=== PATIENT | female | born 1945 | race Caucasian/White ===

== ENCOUNTER 2016-10-03 11:56 | Inpatient (IN) ==
[2016-10-03 12:43] LABS: Basophils % 0.7 %; Eosinophils # 0.2 K/mcL (0.0-0.6); Eosinophils % 3.5 %; Hematocrit 40.2 % (35.3-44.9); Hemoglobin 12.4 g/dL (11.5-15.4); Immature Granulocytes % 0.2 % (0-4); Lymphocytes # 1.6 K/mcL (0.6-4.6); Lymphocytes % 36.8 %; Mean Corpuscular HGB Conc 30.8 g/dL (31.6-35.5); Mean Corpuscular Hemoglobin 27.1 pg (28.0-33.3); Mean Platelet Volume 9.8 fL (9.4-12.4); Monocytes # 0.5 K/mcL (0.0-1.3); Monocytes % 11.2 %; Platelet Count 179 K/mcL (140-400); Red Blood Count 4.57 M/mcL (3.82-4.97); Red Cell Distribution Width 15.8 % (11.5-14.5); Segmented Neutrophils % 47.6 %
[2016-10-03 12:49] LABS: INR 1.3; Prothrombin Time 13.7 Seconds (9.4-12.1)
[2016-10-03 13:01] LABS: Alanine Aminotransferase 19 Units/L (0-55); Albumin 2.9 g/dL (3.5-5.0); Albumin/Globulin Ratio 0.8 (1.1-2.2); Alkaline Phosphatase 102 Units/L (38-126); Aspartate Amino Transferase 28 Units/L (5-34); BUN/Creatinine Ratio 14 (6-26); Bilirubin,Total 1.3 mg/dL (0.2-1.2); Blood Urea Nitrogen 14 mg/dL (7-20); Calcium 9.7 mg/dL (8.6-10.8); Carbon Dioxide 27 mEq/L (19-29); Chloride 103 mEq/L (98-109); Globulin 3.7 g/dL (2.4-3.5); Glucose 98 mg/dL (70-99); Osmolality,Calculated 286 (280-300); Potassium 4.7 mEq/L (3.5-4.5); Sodium 138 mEq/L (136-145); Total Protein 6.6 g/dL (6.0-8.3); eGFR For African Americans > 60 (> 60); eGFR For Non-African Americans 54 (> 60)
--- NOTE | 2016-10-03 14:21 | Emergency Department Note ---
Disposition Clinical Impression: Congestive heart failure, New onset a-fib Disposition: Admitted As Inpatient Condition: Good SOB HPI - General Chief Complaint: ED Shortness of Breath/Dyspnea Stated Complaint: LISA Time Seen by Provider: 10/03/16 12:11 Source: patient, family Limitations: no limitations Nursing Notes Reviewed: Yes Vital Signs Reviewed: Yes - History of Present Illness Patient presents with complaint of worsening shortness of breath. Patient stated his symptoms started over a week ago she had a CT scan done that showed a moderate right side effusion. Patient states the shortness of breath got worse and her tolerance has worsened. Patient denies fevers or chills denies shortness of breath. Patient denies chest pain denies change in appetite. Patient does feel agitation associated. Patient denies prior history of similar symptoms. Family notes that the patient has been short of breath when walking up stairs. - Related Data Home Medications Medication Instructions Recorded Confirmed Albuterol Neb [Proventil Neb] 2.5 mg IH Q4HR 05/21/15 09/25/16 Aspirin [Adult Low Dose Aspirin EC] 81 mg PO DAILY 05/21/15 09/25/16 Calcium Carbonate [Tums] 500 mg PO DAILY 05/21/15 09/25/16 Docusate [Colace] 100 mg PO BID 05/21/15 09/25/16 Furosemide [Lasix] 40 mg PO DAILY PRN 05/21/15 09/25/16 Previous Rx's Medication Instructions Recorded GuaiFENesin ER [Mucinex] 600 mg PO BID #20 tbbp.12hr 08/21/15 Fluconazole [Diflucan] 200 mg PO DAILY #3 tab 08/29/15 Fluticasone Propionate Nasal 1 spray NS BID #1 bottle 12/18/15 [Flonase] Ciprofloxacin [Cipro] 1 tab PO BID #14 tablet 03/18/16 PredniSONE [Deltasone] 1 tab PO BID #10 tablet 03/18/16 Lovastatin [Altoprev] 20 mg PO DAILY #90 tab.er.24h 04/08/16 Metoprolol XL (24 HR) Succ [Toprol 25 mg PO BID #180 tab.er.24h 04/15/16 XL] Ranitidine HCl [Zantac] 1 tab PO BID #180 tablet 05/08/16 Acetaminophen/Butalbital/Caffe 1 each PO Q8H PRN #30 tablet 05/21/16 [Fioricet] Amoxicillin/Clavulanate [Augmentin] 1 tab PO BID #14 tablet 06/10/16 Diazepam [Valium] 1 tab PO TID PRN #30 tablet 06/10/16 Fluticasone Propionate [Flovent 1 puff IH BID #1 aer.w.adap 06/10/16 Hfa] Erlotinib HCl [Tarceva] 100 mg PO DAILY 30 Days 06/30/16 Hydrocodone/Acetaminophen [[place] 1 tab PO TID PRN #90 tablet 07/23/16 5-325 Tablet] Loratadine [Claritin] 10 mg PO DAILY #90 tablet 08/05/16 Omeprazole [PriLOSEC] 20 mg PO DAILY #90 capsule 08/05/16 Fluconazole [Diflucan] 200 mg PO DAILY #3 tab 09/25/16 Allergies Allergy/AdvReac Type Severity Reaction Status Date / Time No Known Allergies Allergy Verified 05/15/15 08:52 All systems ED: reviewed and negative except as stated. Past Medical History - Past Medical History Source: patient Medical history: Reports: cancer, COPD, GERD, myocardial infarction Surgical history: Reports: cancer surgery, cholecystectomy Psychiatric history: Reports: no psych history - Social History Smoking Status: Former smoker Smokeless Tobacco Status: No Alcohol use: Reports: none Drug use: Reports: none Physical Exam - General Limitations: no limitations General appearance: alert - Head Head exam: atraumatic, normocephalic, normal inspection - Eye Eye exam: Present: normal appearance, PERRL, EOMI - ENT ENT exam: normal exam, normal oropharynx, mucous membranes moist - Neck Neck exam: Present: normal inspection, full ROM, trachea midline - Chest Chest inspection: Present: normal inspection, symmetric chest wall rise - Respiratory Respiratory exam: Present: other (No air movement noted on the right. Rhonchi noted on the left) - Cardiovascular Cardiovascular exam: Present: tachycardia, irregular rhythm - Abdominal Exam Abdominal exam: Present: soft, Non-Tender. Absent: tenderness, distention, guarding, rebound, rigidity - Extremities Exam Extremities exam: Present: normal inspection, full ROM. Absent: tenderness, pedal edema - Back Exam Back exam: Present: normal inspection, full ROM. Absent: tenderness - Neurological Exam Neurological exam: Present: alert, oriented X3 - Psychiatric Psychiatric exam: Present: normal affect, normal mood - Skin Skin exam: Present: warm, dry, intact, normal color Course Vital Signs Temperature 97.8 F 10/03/16 11:57 Pulse Rate 163 10/03/16 11:57 Respiratory Rate 24 10/03/16 11:57 Blood Pressure 119/80 10/03/16 11:57 O2 Sat by Pulse Oximetry 88 L 10/03/16 11:57 Temperature 97.8 F 10/03/16 11:57 Pulse Rate 100 10/03/16 14:01 Respiratory Rate 18 10/03/16 14:01 Blood Pressure 112/88 10/03/16 14:01 O2 Sat by Pulse Oximetry 99 10/03/16 14:01 Oxygen Delivery Oxygen Delivery Nasal Cannula Shortness of Breath/Dyspnea - Differential Diagnosis Likely: acute exacerbation of chronic obstructive airways disease, congestive heart failure, pneumonia, pulmonary embolism, pneumothorax - Lab Data Lab results reviewed: Yes I reviewed the patient's lab results. Result diagrams: 10/03/16 12:35 10/03/16 12:35 Lab Results 10/03/16 10/03/16 10/03/16 Range/Units 12:35 12:35 12:35 WBC 4.3 (4.3-11.1) K/mcL RBC 4.57 (3.82-4.97) M/mcL Hgb 12.4 (11.5-15.4) g/dL Hct 40.2 (35.3-44.9) % MCV 88.0 (83.0-100.0) fL MCH 27.1 L (28.0-33.3) pg MCHC 30.8 L (31.6-35.5) g/dL RDW 15.8 H (11.5-14.5) % Plt Count 179 (140-400) K/mcL MPV 9.8 (9.4-12.4) fL Immature Gran % 0.2 (0-4) % Seg Neutrophils % 47.6 % Lymphocytes % 36.8 % Monocytes % 11.2 % Eosinophils % 3.5 % Basophils % 0.7 % Neutrophils # 2.0 (1.6-8.9) K/mcL Lymphocytes # 1.6 (0.6-4.6) K/mcL Monocytes # 0.5 (0.0-1.3) K/mcL Eosinophils # 0.2 (0.0-0.6) K/mcL Basophils # 0.0 (0.0-0.2) K/mcL PT 13.7 H (9.4-12.1) Seconds INR 1.3 Sodium 138 (136-145) mEq/L Potassium 4.7 H (3.5-4.5) mEq/L Chloride 103 (98-109) mEq/L Carbon Dioxide 27 (19-29) mEq/L BUN 14 (7-20) mg/dL Creatinine 1.02 (0.57-1.11) mg/dL Est GFR ( Amer) > 60 (> 60) Est GFR (Non-Af Amer) 54 L (> 60) BUN/Creatinine Ratio 14 (6-26) Glucose 98 (70-99) mg/dL Calculated Osmolality 286 (280-300) Lactic Acid (0.5-2.2) mmol/L Calcium 9.7 (8.6-10.8) mg/dL Total Bilirubin 1.3 H (0.2-1.2) mg/dL AST 28 (5-34) Units/L ALT 19 (0-55) Units/L Alkaline Phosphatase 102 (38-126) Units/L Troponin I (0-0.03) ng/mL B-Natriuretic Peptide (0-100) pg/mL Serum Total Protein 6.6 (6.0-8.3) g/dL Albumin 2.9 L (3.5-5.0) g/dL Globulin 3.7 H (2.4-3.5) g/dL Albumin/Globulin Ratio 0.8 L (1.1-2.2) 10/03/16 10/03/16 10/03/16 Range/Units 12:35 12:35 12:35 WBC (4.3-11.1) K/mcL RBC (3.82-4.97) M/mcL Hgb (11.5-15.4) g/dL Hct (35.3-44.9) % MCV (83.0-100.0) fL MCH (28.0-33.3) pg MCHC (31.6-35.5) g/dL RDW (11.5-14.5) % Plt Count (140-400) K/mcL MPV (9.4-12.4) fL Immature Gran % (0-4) % Seg Neutrophils % % Lymphocytes % % Monocytes % % Eosinophils % % Basophils % % Neutrophils # (1.6-8.9) K/mcL Lymphocytes # (0.6-4.6) K/mcL Monocytes # (0.0-1.3) K/mcL Eosinophils # (0.0-0.6) K/mcL Basophils # (0.0-0.2) K/mcL PT (9.4-12.1) Seconds INR Sodium (136-145) mEq/L Potassium (3.5-4.5) mEq/L Chloride (98-109) mEq/L Carbon Dioxide (19-29) mEq/L BUN (7-20) mg/dL Creatinine (0.57-1.11) mg/dL Est GFR ( Amer) (> 60) Est GFR (Non-Af Amer) (> 60) BUN/Creatinine Ratio (6-26) Glucose (70-99) mg/dL Calculated Osmolality (280-300) Lactic Acid 2.6 H (0.5-2.2) mmol/L Calcium (8.6-10.8) mg/dL Total Bilirubin (0.2-1.2) mg/dL AST (5-34) Units/L ALT (0-55) Units/L Alkaline Phosphatase (38-126) Units/L Troponin I 0.12 H* (0-0.03) ng/mL B-Natriuretic Peptide 2516 H (0-100) pg/mL Serum Total Protein (6.0-8.3) g/dL Albumin (3.5-5.0) g/dL Globulin (2.4-3.5) g/dL Albumin/Globulin Ratio (1.1-2.2) - Radiology Data Radiology results reviewed: Yes I reviewed the patient's radiology results. Chest CTA 10/03/16 12:17 IMPRESSION: Negative study for pulmonary embolism. Stable enlargement of main pulmonary arteries which may be on the basis of pulmonary arterial hypertension. Redemonstration of prior partial right pneumonectomy. Complete collapse of residual right lung redemonstrated. Other underlying pathology not excluded. Stable rightward mediastinal shift. Stable cardiomegaly and small pericardial effusion. Stable moderately sized left pleural effusion with associated mild dependent/compressive atelectasis to left lower lobe. Stable right axillary lymphadenopathy from recent exam, worsened from prior more remote exam 03/12/2016. With the patient's clinical history, metastatic disease is of concern. Mild diffuse subcutaneous edema about the chest, right more than left, nonspecific but possibly reflecting anasarca or lymphedema. D/ / 10/03/2016 14:20:03 Luis F Wheeler MD / nevaeh Interpreting Provider: Luis F Wheeler MD - EKG Data EKG attestation: Yes I reviewed and interpreted this EKG. Rate: Reports: tachycardia Rhythm: Reports: A.Fib Critical Care Time Total Critical Care Time: 45 Attestation: Critical care performed: Time is exclusive of separately billable procedures. Time includes: direct patient care, patient reassessment, coordination of patient care, interpretation of data (laboratory data, radiology data, and respiratory data), review of patient's medical records, medical consultation and documentation of patient care. Procedures included in critical care time: Procedures excluded from critical care time:
--- NOTE | 2016-10-03 18:15 | Internal Med History&Physical ---
Date of Encounter: 10/03/16 Time of Encounter: 18:15 Assessment and Plan (1) Atrial fibrillation with RVR Current visit: Yes Status: Acute I will continue with Cardizem drip. Titrate to maintain heart rate between 80 and 110. Currently she has had 7 mg per hour. We will obtain echocardiogram. Consult cardiology. Transitioned to oral diltiazem. Start metoprolol given her history of CAD. We will start stroke prophylaxis with full dose Lovenox and I will have conversation about anticoagulation choice for her in the morning. She has a transthoracic score of 5 when a yearly stroke risk of about 7% and therefore she would benefit from anticoagulation. (2) Acute on chronic heart failure Current visit: Yes Status: Acute IV Lasix 20 mg twice a day. Daily weights. Strict I&O's. Check echocardiogram. Qualifiers: Heart failure type: diastolic Qualified Code(s): I50.33 - Acute on chronic diastolic (congestive) heart failure (3) Elevated troponin Current visit: Yes Status: Acute Controlled throughout ACS. Start aspirin. Trend troponin. Continue with metoprolol. (4) Coronary artery disease Current visit: Yes Status: Acute Aspirin and beta melina and statin. Nitroglycerin for chest pain. Qualifiers: Coronary Disease-Associated Artery/Lesion type: [place] artery [place] vs. transplanted heart: [place] heart Associated angina: without angina Qualified Code(s): I25.10 - Atherosclerotic heart disease of [place] coronary artery without angina pectoris (5) Non-small cell lung cancer Current visit: No Status: Chronic Continue with Tarceva. Patient has a pleural effusion on the left which could be reflecting her CHF. Could represent malignant effusion. She has a small increase in her lymph nodes and therefore I will consult oncology. 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 If the patient has a high-grade stricture she will need to have endoscopy and dilation otherwise she will not be able to receive treatment with oral medications for her atrial fibrillation. Internal Medicine - H&P: HPI Chief complaint: Shortness of breath Admitted From: Emergency Dept Plans for Post Hospital Care: Home History of present illness: Ms. Wong is a 71 year old female with past medical history significant for CAD status post stent, COPD and lung cancer currently being treated with oral chemotherapy who presented to the hospital for shortness of breath. She reports that for the last 2 weeks she had been progressively more short of breath, dyspnea morning she experienced severe shortness of breath at rest after she woke up. She used a nebulized bronchodilator with no relief. She denies any associated chest pain, reported moderate upper back pain and dry cough. Denies nausea vomiting diarrhea. Denies recent URI symptoms. Denies history of bleeding bruising and blood clots. She reports some dysphagia when she takes her pills and states that some of her pills get stuck. She states that she has had her esophagus stretched several times before. A 10 point review of systems was negative except as above. Past medical history: Essential hypertension, GERD, Coronary artery disease status post TX and stent placement, COPD, acute lymphoblastic leukemia treated. Asparaginase and in remission, non-small cell right lower lobe lung cancer bone metastases and metastases to the brain status post right lower lobectomy, chemotherapy and radiation. Past surgical history: Right lower lobectomy and chronic carpal tunnel surgery Social history she is a former smoker, quit more than 20 years ago, denies alcohol or drug use. She lives at home independently and she still drives. She uses oxygen at nighttime only. Family history: Pertinent for both parents suffered with lung cancer and sister suffered with lung cancer, hilar history of smoking. Past Med Surg Social Fam HX - Past Medical History Medical history: cancer, COPD, GERD, myocardial infarction Psychiatric history: anxiety, depression - Past Surgical History Surgical History: cancer surgery, cholecystectomy - Social History Smoking Status: Former smoker Smokeless Tobacco Status: No Alcohol use: none Drug use: none Internal Medicine - H&P: Meds Albuterol Neb [Proventil Neb] 2.5 mg IH Q4HR 05/21/15 [History] Aspirin [Adult Low Dose Aspirin EC] 81 mg PO DAILY 05/21/15 [History] Calcium Carbonate [Tums] 500 mg PO DAILY 05/21/15 [History] Docusate [Colace] 100 mg PO BID 05/21/15 [History] Furosemide [Lasix] 40 mg PO DAILY PRN 05/21/15 [History] Lovastatin [Altoprev] 20 mg PO DAILY #90 tab.er.24h 04/08/16 [Rx] Metoprolol XL (24 HR) Succ [Toprol XL] 25 mg PO BID #180 tab.er.24h 04/15/16 [Rx ] Diazepam [Valium] 1 tab PO TID PRN #30 tablet 06/10/16 [Rx] Erlotinib HCl [Tarceva] 100 mg PO DAILY 30 Days 06/30/16 [Rx] Hydrocodone/Acetaminophen [[place] 5-325 Tablet] 1 tab PO TID PRN #90 tablet 07/23 [Rx] Omeprazole [PriLOSEC] 20 mg PO DAILY #90 capsule 08/05/16 [Rx] Fluticasone Propionate Nasal [Flonase] 50 mcg NS BID 10/03/16 [History] Gabapentin [Neurontin] 300 mg PO QAM 10/03/16 [History] Gabapentin [Neurontin] 600 mg PO HS 10/03/16 [History] Ranitidine HCl [Zantac] 150 mg PO BID 10/03/16 [History] Sertraline [Zoloft] 25 mg PO DAILY 10/03/16 [History] Tiotropium [Spiriva] 18 mcg IH DAILY 10/03/16 [History] Allergies No Known Allergies Allergy (Verified 05/15/15 08:52) All Systems PM: A 10-system review of systems was performed and is negative for pertinent findings except as documented above in the HPI. - Constitutional Vitals: Temp Pulse Resp BP Pulse Ox 98.1 F 95 16 114/87 100 10/03/16 16:14 10/03/16 16:14 10/03/16 16:14 10/03/16 16:14 10/03/16 16:34 General appearance: Present: A&O X 3 - Eye Eye exam: Present: PERRL, conjuntiva pink, sclera anicteric Pupils: Present: PERRL - Neck Neck exam general surgery: Present: supple, trachea midline. Absent: lymphadenopathy - Respiratory Respiratory exam: Present: CTAB (Diminished breath sounds at both bases). Absent: accessory muscle use, rales, rhonchi, wheezes - Cardiovascular Cardiovascular exam: Present: irregular rhythm, +S1, +S2, tachycardia. Absent: diastolic murmur, gallop, rubs, systolic murmur - GI/Abdominal GI/Abdominal exam: Present: normal bowel sounds, soft, no peritoneal signs. Absent: distended, tenderness - Extremities Exam Extremities exam: Present: warm, radial pulses palpable and symetrical. Absent : calf tenderness, cyanotic, pedal edema - Neurological Exam Neurological exam: Present: CN II-XII intact, oriented X3, no focal deficits. Absent: pronater drift, facial droop, speech deficit - Skin Skin exam: Present: dry, intact Internal Med - H&P Results - Labs CBC & Chem 7: 10/03/16 12:35 10/03/16 12:35 - EKG Data -: EKG Interpreted by Myself (A. fib RVR 1 86 bpm left axis deviation, no ST changes.)
[2016-10-03] MEDS ORDERED: Naloxone 0.4 MG/ML INJ IVP PRN (18:35)
[2016-10-03] MEDS ORDERED: Acetaminophen 325 MG TABLET PO PRN (18:35)
[2016-10-03] MEDS: *HR* Enoxaparin 60 MG/0.6 ML SYRINGE SQ SCH (20:29)
[2016-10-03] MEDS: Furosemide 20 MG/2 ML VIAL IVP SCH (20:30)
[2016-10-04 01:09] LABS: Basophils % 0.8 %; Eosinophils # 0.2 K/mcL (0.0-0.6); Eosinophils % 4.4 %; Hematocrit 41.1 % (35.3-44.9); Hemoglobin 12.7 g/dL (11.5-15.4); Immature Granulocytes % 0.2 % (0-4); Lymphocytes # 1.5 K/mcL (0.6-4.6); Mean Corpuscular HGB Conc 30.9 g/dL (31.6-35.5); Mean Corpuscular Hemoglobin 27.4 pg (28.0-33.3); Mean Corpuscular Volume 88.6 fL (83.0-100.0); Mean Platelet Volume 10.3 fL (9.4-12.4); Monocytes # 0.6 K/mcL (0.0-1.3); Monocytes % 12.3 %; Neutrophils # 2.5 K/mcL (1.6-8.9); Platelet Count 178 K/mcL (140-400); Red Blood Count 4.64 M/mcL (3.82-4.97); Red Cell Distribution Width 15.8 % (11.5-14.5); Segmented Neutrophils % 51.3 %
[2016-10-04 01:26] LABS: Calcium 9.2 mg/dL (8.6-10.8); Chol/HDL Ratio 2.4 (0-4.9); Magnesium 1.5 mg/dL (1.6-2.6)
[2016-10-04 01:27] LABS: Potassium 3.5 mEq/L (3.5-4.5)
[2016-10-04 01:45] LABS: Thyroid Stimulating Hormone 1.978 mcIU/mL (0.350-4.840)
[2016-10-04] MEDS: TARCEVA PO SCH ×2 (04:41→08:56)
[2016-10-04] MEDS: *HR* Enoxaparin 60 MG/0.6 ML SYRINGE SQ SCH (06:13)
--- NOTE | 2016-10-04 08:50 | Oncology Inp Consult Note ---
Date of Encounter: 10/04/16 Time of Encounter: 07:00 Assessment and Plan (1) Non-small cell lung cancer Status: Chronic Assessment and plan: Recurrent non-small cell lung cancer with a history of brain metastatic disease currently on Tarceva since 2009 with stable disease patient hospitalized with worsening shortness of breath possibly secondary to cardiac event. Rapid ventricular rate currently on anticoagulation and rate control. Troponon trending down. Lung cancer s/p right lung resection with complete collapse of the right lung, this has not changed from before. Left lung fluid accumulation noted plan thoracentesis diagnostic/for symptom relief once she is stable from cardiac standpoint. She has history of COPD he continues with the oxygen at home. Continuing her home medication Tarceva which she is allowed to take. Plan of care discussed with patient in detail who stated understanding of the above. Qualifiers: Laterality: right Qualified Code(s): C34.91 - Malignant neoplasm of unspecified part of right bronchus or lung - Data of Consult Requesting Physician: Anuj Castorena MD Primary Care Provider: Elton Gates MD - Consult Narrative Reason for consult: lung cancer, SOB History of present illness: Ms. Wong is a 71 year old female with a history of recurrent lung cancer status post chemoradiation in the past by chemotherapy upon recurrence currently maintained on Tarceva since January 2010 100 mg daily, which patient is currently taking. She also had an isolated brain metastatic disease for which she had local treatments. Patient had bronchitis shortness of breath at the episodes periodically was treated with antibiotics and steroid course in the past. Patient reports having had sinus/congestive symptoms with cough or expectoration for the last few months. She had worsening shortness of breath for the past 2 weeks prior to hospitalization denies any fever complaints of fatigue denies any abdominal pain nausea vomiting. Stricture of esophagus- planned endoscopy. She is unable to take deep breath because of some left-sided chest discomfort. A CTA heart show any pulmonary embolus, she is status post right LL resection with opacification, left lower lung fluid accumulation. She uses home oxygen. Night any lower extremity swelling. Heart rate, rhythm on admission A. fib with rapid ventricular rate. On anticoagulation. A 14 point review of systems is otherwise negative. Past Med Surg Social Fam HX - Past Medical History Medical history: cancer, COPD, GERD, myocardial infarction Psychiatric history: anxiety, depression - Past Surgical History Surgical History: cancer surgery, cholecystectomy - Social History Smoking Status: Former smoker Smokeless Tobacco Status: No Alcohol use: none Drug use: none Medications and Allergies Albuterol Neb [Proventil Neb] 2.5 mg IH Q4HR 05/21/15 [History] Aspirin [Adult Low Dose Aspirin EC] 81 mg PO DAILY 05/21/15 [History] Calcium Carbonate [Tums] 500 mg PO DAILY 05/21/15 [History] Docusate [Colace] 100 mg PO BID 05/21/15 [History] Furosemide [Lasix] 40 mg PO DAILY PRN 05/21/15 [History] Lovastatin [Altoprev] 20 mg PO DAILY #90 tab.er.24h 04/08/16 [Rx] Metoprolol XL (24 HR) Succ [Toprol XL] 25 mg PO BID #180 tab.er.24h 04/15/16 [Rx ] Diazepam [Valium] 1 tab PO TID PRN #30 tablet 06/10/16 [Rx] Erlotinib HCl [Tarceva] 100 mg PO DAILY 30 Days 06/30/16 [Rx] Hydrocodone/Acetaminophen [[place] 5-325 Tablet] 1 tab PO TID PRN #90 tablet 07/23 [Rx] Omeprazole [PriLOSEC] 20 mg PO DAILY #90 capsule 08/05/16 [Rx] Fluticasone Propionate Nasal [Flonase] 50 mcg NS BID 10/03/16 [History] Gabapentin [Neurontin] 300 mg PO QAM 10/03/16 [History] Gabapentin [Neurontin] 600 mg PO HS 10/03/16 [History] Ranitidine HCl [Zantac] 150 mg PO BID 10/03/16 [History] Sertraline [Zoloft] 25 mg PO DAILY 10/03/16 [History] Tiotropium [Spiriva] 18 mcg IH DAILY 10/03/16 [History] Allergies No Known Allergies Allergy (Verified 05/15/15 08:52) Oncology - Exam - Constitutional Vitals: Temp Pulse Resp BP Pulse Ox 98.9 F 119 21 107/91 97 10/04/16 06:03 10/04/16 06:03 10/04/16 06:03 10/04/16 06:03 10/04/16 06:03 Oncology - Results - Labs Labs: Short CBC 10/04/16 Range/Units 00:52 WBC 4.8 (4.3-11.1) K/mcL Hgb 12.7 (11.5-15.4) g/dL Hct 41.1 (35.3-44.9) % Plt Count 178 (140-400) K/mcL Neutrophils # 2.5 (1.6-8.9) K/mcL BMP 10/04/16 00:52 Sodium 137 Potassium 3.5 D Chloride 99 Carbon Dioxide 27 BUN 14 Creatinine 1.13 H Glucose 101 H Calcium 9.2 Cardiac Enzymes 10/03/16 10/04/16 10/04/16 Range/Units 20:00 00:52 07:01 Troponin I 0.16 H* 0.16 H* 0.09 H* (0-0.03) ng/mL Consult Discharge Plan - Plan Referrals: Elton Gates MD [Primary Care Provider] -
[2016-10-04] MEDS: Aspirin 81 MG TAB.CHEW PO SCH (09:10)
[2016-10-04] MEDS: Furosemide 20 MG/2 ML VIAL IVP SCH ×3 (09:10→17:29)
--- NOTE | 2016-10-04 09:53 | Cardiology Consult Note ---
Date of Encounter: 10/04/16 Time of Encounter: 09:49 Assessment and Plan (1) Atrial fibrillation with RVR Current Visit: Yes Status: Acute Paroxysmal. Initially diagnosed in 2012 per records. Pt reports she was never started on anticoagulation. HR currently 90s-120s at bedside on Cardizem gtt at 7mg/hr. Will resume home BB Toprol XL 25mg BID and adjust cardizem gtt as BP will tolerate to keep HR <100. Check echo once HR controlled. K 3.5, Mag 1.5. Check TSH. CHADSVASC score 4 (Age, HTN, Female, CAD). Also hypercoaguable state given her malignancy. Recommend anticoagulation. Discussed Coumadin vs. NOACs. Pt prefers NOAC. Will marx check eliquis. Currently on Lovenox for anticoagulation. Will not start Eliquis until it is determined if pt will have thoracentesis. (2) Congestive heart failure Current Visit: Yes Status: Acute BNP 2516, Chest CTA shows pleural effusions--moderate Left. Oncology has recommended thoracentesis for diagnostic evaluation and for symptom relief. Agree with IV diuresis--20mg IV BID. Recommend strict I/O, Na and fluid restriction, daily weights. Check echo to evaluate structure and function once HR improves. Last echo 06/2013 EF 70%, no significant valvular dysfunction. Qualifiers: Congestive heart failure type: unspecified congestive heart failure type Congestive heart failure chronicity: acute Qualified Code(s): I50.9 - Heart failure, unspecified (3) Elevated troponin Current Visit: Yes Status: Acute 0.12, 0.16, 0.16, 0.09. Flat and adynamic in setting of A-Fib with RVR and CHF exacerbation--likely secondary to demand ischemia. Nondiagnostic for ACS. Pt denies chest pain. Echo once HR controlled. (4) Coronary artery disease Current Visit: Yes Status: Acute Reports hx of PCI x 3 in 2003 at [facility]. Denies chest pain. ASA, Statin, BB. Qualifiers: Coronary Disease-Associated Artery/Lesion type: [place] artery [place] vs. transplanted heart: [place] heart Associated angina: without angina Qualified Code(s): I25.10 - Atherosclerotic heart disease of [place] coronary artery without angina pectoris Discussion w patient/family: The assessment and plan as outlined above was discussed with the patient and/or family members who expressed understanding and agreement. All questions were answered. Thank you for involving us in the care of your patient. Please call with any questions. I will discuss all the above with Dr. Colbert and make changes as necessary. History of Present Illness Consult date: 10/04/16 Requesting physician: Anuj Castorena Consult reason: A-Fib RVR Chief complaint: dyspnea History of present illness: Ms. Wong is a 71 year old female with PMH of CAD s/p PCI in 2003, COPD, lung cancer s/p lobectomy with mets to brain--currently being treated with oral chemotherapy, PAF documented in 2012, who presented to the hospital for shortness of breath. She reports that for the last 2 weeks she had been progressively more short of breath, dyspnea yesterday morning was more severe, prompting her to come to ED. She used a nebulized bronchodilator with no relief. She denies any associated chest pain or palpitations. She was found to be in A-Fib with RVR on presentation, HR 180s. She is currently on a cardizem gtt at 7mg/hr and HR is 90s-120s at bedside. She reports feeling better currently. Chest CTA showed moderate left pleural effusion. BNP 2516, Troponin 0.12, 0.16, 0.16., 0.09. Ecoh 06/2013 EF was 70% with no significant valvular dysfunction. Past Med Surg Social Fam HX - Past Medical History Medical history: atrial fibrillation, cancer, COPD, GERD, myocardial infarction Psychiatric history: anxiety, depression - Past Surgical History Surgical History: angioplasty/stent, cancer surgery, cholecystectomy - Social History Smoking Status: Former smoker Smokeless Tobacco Status: No Alcohol use: none Drug use: none Medications and Allergies Albuterol Neb [Proventil Neb] 2.5 mg IH Q4HR 05/21/15 [History] Aspirin [Adult Low Dose Aspirin EC] 81 mg PO DAILY 05/21/15 [History] Calcium Carbonate [Tums] 500 mg PO DAILY 05/21/15 [History] Docusate [Colace] 100 mg PO BID 05/21/15 [History] Furosemide [Lasix] 40 mg PO DAILY PRN 05/21/15 [History] Lovastatin [Altoprev] 20 mg PO DAILY #90 tab.er.24h 04/08/16 [Rx] Metoprolol XL (24 HR) Succ [Toprol XL] 25 mg PO BID #180 tab.er.24h 04/15/16 [Rx ] Diazepam [Valium] 1 tab PO TID PRN #30 tablet 06/10/16 [Rx] Erlotinib HCl [Tarceva] 100 mg PO DAILY 30 Days 06/30/16 [Rx] Hydrocodone/Acetaminophen [[place] 5-325 Tablet] 1 tab PO TID PRN #90 tablet 07/23 [Rx] Omeprazole [PriLOSEC] 20 mg PO DAILY #90 capsule 08/05/16 [Rx] Fluticasone Propionate Nasal [Flonase] 50 mcg NS BID 10/03/16 [History] Gabapentin [Neurontin] 300 mg PO QAM 10/03/16 [History] Gabapentin [Neurontin] 600 mg PO HS 10/03/16 [History] Ranitidine HCl [Zantac] 150 mg PO BID 10/03/16 [History] Sertraline [Zoloft] 25 mg PO DAILY 10/03/16 [History] Tiotropium [Spiriva] 18 mcg IH DAILY 10/03/16 [History] Allergies No Known Allergies Allergy (Verified 05/15/15 08:52) All Systems Review: A 10-system review of systems was performed and is negative for pertinent findings except as documented above in the HPI. - Cardiovascular Cardiovascular: as per HPI, dyspnea at rest, dyspnea on exertion, leg edema - Respiratory Respiratory: cough, dyspnea Physical Examination Vital Signs, Last 4 Hours Temp Pulse Resp BP Pulse Ox 10/04/16 06:03 98.9 F 119 21 107/91 97 Vital Signs Temp Pulse Resp BP Pulse Ox 10/04/16 06:03 98.9 F 119 21 107/91 97 10/04/16 00:10 98.0 F 108 12 106/68 97 10/03/16 18:59 97.5 F L 98 18 137/84 97 10/03/16 16:34 100 10/03/16 16:14 98.1 F 95 16 114/87 100 10/03/16 15:37 18 120/82 10/03/16 14:01 100 18 112/88 99 10/03/16 12:33 97 10/03/16 11:57 97.8 F 163 24 119/80 88 L Intake and Output 10/03/16 10/04/16 10/04/16 23:59 07:59 15:59 Intake Total 96 / 96 Output Total 400 / 400 Balance -304 / -304 Intake: IV Fluids 96 / 96 Cardizem 125 MG In 96 / 96 Dextrose 5% 100 ML @ 5 MG /HR 5 mls/hr IVC .Q24H [facility] Rx#:[id number] Output: Urine 400 / 400 Other: Stool Size Moderate Stool Consistency soft Stool Characteristics Normal for Patient Stool Color Brown # Voids 1 1 # Bowel Movements 1 Weight 75.9 kg Patient Weight 10/04/16 23:59 Weight 75.9 kg General: Conversant, No Apparent Distress HEENT: Atraumatic, Normocephaly, Mucus Membranes Moist Neck: Normal carotid pulses Cardiac: Other (irregularly irregular) Lungs: Other (diminished) Neuro: Alert and responsive, No focal deficits noted Abdomen: Soft, Non-Tender Skin: No rashes noted on visualized skin Musculoskeletal: No Chest Wall Tenderness Extremities: No Clubbing, No Cyanosis, No Edema, Normal Pulses Results 10/04/16 00:52 10/04/16 00:52 Lab Results 10/03/16 10/04/16 10/04/16 20:00 00:52 00:52 WBC 4.8 Hgb 12.7 Hct 41.1 Plt Count 178 Sodium Potassium Chloride Carbon Dioxide BUN Creatinine Glucose Calcium Magnesium Troponin I 0.16 H* 0.16 H* TSH 10/04/16 10/04/16 10/04/16 00:52 00:52 07:01 WBC Hgb Hct Plt Count Sodium 137 Potassium 3.5 D Chloride 99 Carbon Dioxide 27 BUN 14 Creatinine 1.13 H Glucose 101 H Calcium 9.2 Magnesium 1.5 L Troponin I 0.09 H* TSH 1.978 Short CBC 10/04/16 10/03/16 Range/Units 00:52 12:35 WBC 4.8 4.3 (4.3-11.1) K/mcL Hgb 12.7 12.4 (11.5-15.4) g/dL Hct 41.1 40.2 (35.3-44.9) % Plt Count 178 179 (140-400) K/mcL Neutrophils # 2.5 2.0 (1.6-8.9) K/mcL BMP 10/04/16 10/03/16 Range/Units 00:52 12:35 Sodium 137 138 (136-145) mEq/L Potassium 3.5 D 4.7 H (3.5-4.5) mEq/L Chloride 99 103 (98-109) mEq/L Carbon Dioxide 27 27 (19-29) mEq/L BUN 14 14 (7-20) mg/dL Creatinine 1.13 H 1.02 (0.57-1.11) mg/dL Glucose 101 H 98 (70-99) mg/dL Calcium 9.2 9.7 (8.6-10.8) mg/dL Cardiac Enzymes 10/04/16 10/04/16 10/03/16 Range/Units 07:01 00:52 20:00 Troponin I 0.09 H* 0.16 H* 0.16 H* (0-0.03) ng/mL 10/03/16 Range/Units 12:35 Troponin I 0.12 H* (0-0.03) ng/mL Liver Function 10/03/16 Range/Units 12:35 Total Bilirubin 1.3 H (0.2-1.2) mg/dL AST 28 (5-34) Units/L ALT 19 (0-55) Units/L Alkaline Phosphatase 102 (38-126) Units/L Albumin 2.9 L (3.5-5.0) g/dL Impressions Chest CTA 10/03/16 12:17 IMPRESSION: Negative study for pulmonary embolism. Stable enlargement of main pulmonary arteries which may be on the basis of pulmonary arterial hypertension. Redemonstration of prior partial right pneumonectomy. Complete collapse of residual right lung redemonstrated. Other underlying pathology not excluded. Stable rightward mediastinal shift. Stable cardiomegaly and small pericardial effusion. Stable moderately sized left pleural effusion with associated mild dependent/compressive atelectasis to left lower lobe. Stable right axillary lymphadenopathy from recent exam, worsened from prior more remote exam 03/12/2016. With the patient's clinical history, metastatic disease is of concern. Mild diffuse subcutaneous edema about the chest, right more than left, nonspecific but possibly reflecting anasarca or lymphedema. D/ / 10/03/2016 14:20:03 Luis F Wheeler MD / nevaeh Interpreting Provider: Luis F Wheeler MD Active Medications Acetaminophen (Tylenol) 650 mg PO Q6HR PRN PRN Reason: Mild Pain (1-3) Stop: 04/04/17 18:36 Aspirin (Aspirin) 81 mg PO DAILY [facility] Stop: 04/05/17 09:01 Last Admin: 10/04/16 09:10 Dose: 81 mg Enoxaparin Sodium (Lovenox) 50 mg 1 mg/kg (50 mg) SQ Q12HCO MARINE PRN Reason: Protocol Stop: 04/04/17 18:57 Last Admin: 10/04/16 06:13 Dose: 50 mg Furosemide (Lasix) 20 mg IVP BIDDIURETIC MARINE Stop: 04/04/17 19:01 Last Admin: 10/03/16 20:30 Dose: 20 mg Diltiazem HCl 125 mg/ Dextrose 125 mls @ 5 mls/hr IVC .Q24H [facility] PRN Reason: 5 MG/HR Stop: 04/04/17 13:01 Last Admin: 10/04/16 04:37 Dose: 7 mg/hr, 7 mls/hr Naloxone HCl (Narcan) 0.4 mg IVP Q2MIN PRN PRN Reason: Opioid Reversal Stop: 04/04/17 18:36 Pharmacy Profile Note (Patient Taking Own Medication) 1 each PO DAILY [facility] Stop: 04/05/17 09:01 Last Admin: 10/04/16 08:56 Dose: Not Given - Imaging and Cardiology Echo: report reviewed - EKG Interpretation EKG results cardiology: personally reviewed (A-Fib with RVR), other (24 hour tele AVG HR 108, A-Fib.) Consult Discharge Plan - Plan Referrals: Elton Gates MD [Primary Care Provider] -
--- NOTE | 2016-10-04 10:07 | Internal Med Progress Note ---
Date of Encounter: 10/04/16 Time of Encounter: 10:05 - Assessment and plan (1) Atrial fibrillation with RVR Current Visit: Yes Status: Acute (2) Acute on chronic heart failure Current Visit: Yes Status: Acute Qualifiers: Qualified Code(s): I50.33 - Acute on chronic diastolic (congestive) heart failure (3) Elevated troponin Current Visit: Yes Status: Acute (4) Coronary artery disease Current Visit: Yes Status: Acute Qualifiers: Qualified Code(s): I25.10 - Atherosclerotic heart disease of [place] coronary artery without angina pectoris (5) Non-small cell lung cancer Current Visit: No Status: Chronic Qualifiers: Qualified Code(s): C34.91 - Malignant neoplasm of unspecified part of right bronchus or lung (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 Absent: lymphadenopathy - Respiratory Respiratory exam: Absent: accessory muscle use, rales, rhonchi, wheezes Additional comments: decreased breath sounds R base, L base crackles - Cardiovascular Cardiovascular exam: Present: irregular rhythm, +S1, +S2, tachycardia. Absent: diastolic murmur, gallop, rubs, systolic murmur - GI/Abdominal GI/Abdominal exam: Present: normal bowel sounds, soft, no peritoneal signs. Absent: distended, tenderness - Extremities Exam Extremities exam: Present: warm, radial pulses palpable and symetrical. Absent : calf tenderness, cyanotic, pedal edema - Neurological Exam Neurological exam: Present: CN II-XII intact, oriented X3, no focal deficits. Absent: pronater drift, facial droop, speech deficit - Skin Skin exam: Present: dry, intact Internal Medicine: Result - Labs CBC & Chem 7: 10/04/16 00:52 10/04/16 00:52 Labs: Short CBC 10/04/16 Range/Units 00:52 WBC 4.8 (4.3-11.1) K/mcL Hgb 12.7 (11.5-15.4) g/dL Hct 41.1 (35.3-44.9) % Plt Count 178 (140-400) K/mcL Neutrophils # 2.5 (1.6-8.9) K/mcL BMP 10/04/16 00:52 Sodium 137 Potassium 3.5 D Chloride 99 Carbon Dioxide 27 BUN 14 Creatinine 1.13 H Glucose 101 H Calcium 9.2 Cardiac Enzymes 10/03/16 10/04/16 10/04/16 Range/Units 20:00 00:52 07:01 Troponin I 0.16 H* 0.16 H* 0.09 H* (0-0.03) ng/mL - ABG Interpretation ABG results: PT/INR, D-dimer PT 13.7 Seconds (9.4-12.1) H 10/03/16 12:35 Consult Discharge Plan - Plan Referrals: Elton Gates MD [Primary Care Provider] -
[2016-10-04] MEDS ORDERED: Magnesium Sulfate 2 GM in D5% in Water 100 ML IVPB ONE (10:14)
[2016-10-04] MEDS: Metoprolol XL (24 HR) Succ 25 MG TAB.ER.24H PO SCH ×2 (11:36→21:06)
[2016-10-04] MEDS: Gabapentin 300 MG CAPSULE PO SCH ×2 (15:31→21:05)
[2016-10-04] MEDS: *HR* Enoxaparin 80 MG/0.8 ML SYRINGE SQ SCH (17:29)
--- NOTE | 2016-10-04 20:38 | Internal Med Progress Note ---
Date of Encounter: 10/04/16 Time of Encounter: 10:00 - Assessment and plan (1) Atrial fibrillation with RVR Current Visit: Yes Status: Acute Assessment and plan: Continue Cardizem drip. Increase metoprolol. Continue telemetric monitoring. Follow-up with cardiology. (2) Acute on chronic heart failure Current Visit: Yes Status: Acute Assessment and plan: We will obtain echocardiogram. Continue with IV Lasix. Monitor kidney function. Strict I's and O's and daily weights.. Qualifiers: Heart failure type: diastolic Qualified Code(s): I50.33 - Acute on chronic diastolic (congestive) heart failure (3) Elevated troponin Current Visit: Yes Status: Acute Assessment and plan: Troponin elevation shows a follow-up profile, could be secondary to demand ischemia or CHF. Consult cardiology. (4) Coronary artery disease Current Visit: Yes Status: Acute Assessment and plan: Continue with aspirin and beta melina and statin. Qualifiers: Coronary Disease-Associated Artery/Lesion type: [place] artery [place] vs. 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 Denies associated chest pain. - Constitutional Vitals: Temp Pulse Resp BP Pulse Ox 98.3 F 97 16 97/75 97 10/04/16 16:00 10/04/16 16:00 10/04/16 16:00 10/04/16 16:00 10/04/16 16:00 General appearance: Present: A&O X 3 - Respiratory Respiratory exam: Present: CTAB. Absent: accessory muscle use, rales, rhonchi, wheezes - Cardiovascular Cardiovascular exam: Present: RRR, +S1, +S2. Absent: diastolic murmur, gallop, rubs, systolic murmur - GI/Abdominal GI/Abdominal exam: Present: normal bowel sounds, soft, no peritoneal signs. Absent: distended, tenderness - Extremities Exam Extremities exam: Present: warm, radial pulses palpable and symetrical. Absent : calf tenderness, cyanotic, pedal edema - Skin Skin exam: Present: dry, intact Internal Medicine: Result - Labs CBC & Chem 7: 10/04/16 00:52 10/04/16 00:52 Labs: Short CBC 10/04/16 Range/Units 00:52 WBC 4.8 (4.3-11.1) K/mcL Hgb 12.7 (11.5-15.4) g/dL Hct 41.1 (35.3-44.9) % Plt Count 178 (140-400) K/mcL Neutrophils # 2.5 (1.6-8.9) K/mcL BMP 10/04/16 00:52 Sodium 137 Potassium 3.5 D Chloride 99 Carbon Dioxide 27 BUN 14 Creatinine 1.13 H Glucose 101 H Calcium 9.2 Cardiac Enzymes 10/03/16 10/04/16 10/04/16 Range/Units 20:00 00:52 07:01 Troponin I 0.16 H* 0.16 H* 0.09 H* (0-0.03) ng/mL - ABG Interpretation ABG results: PT/INR, D-dimer PT 13.7 Seconds (9.4-12.1) H 10/03/16 12:35 Consult Discharge Plan - Plan Referrals: Elton Gates MD [Primary Care Provider] -
[2016-10-05 05:20] LABS: Eosinophils # 0.3 K/mcL (0.0-0.6); Eosinophils % 6.8 %; Hematocrit 38.8 % (35.3-44.9); Hemoglobin 12.1 g/dL (11.5-15.4); Immature Granulocytes % 0.3 % (0-4); Lymphocytes # 1.7 K/mcL (0.6-4.6); Lymphocytes % 41.5 %; Mean Corpuscular HGB Conc 31.2 g/dL (31.6-35.5); Mean Corpuscular Hemoglobin 26.8 pg (28.0-33.3); Mean Platelet Volume 9.7 fL (9.4-12.4); Monocytes # 0.6 K/mcL (0.0-1.3); Monocytes % 14.3 %; Neutrophils # 1.5 K/mcL (1.6-8.9); Platelet Count 200 K/mcL (140-400); Red Blood Count 4.51 M/mcL (3.82-4.97); Red Cell Distribution Width 15.5 % (11.5-14.5); Segmented Neutrophils % 36.1 %
[2016-10-05 05:39] LABS: BUN/Creatinine Ratio 16 (6-26); Blood Urea Nitrogen 14 mg/dL (7-20); Calcium 8.9 mg/dL (8.6-10.8); Carbon Dioxide 29 mEq/L (19-29); Chloride 101 mEq/L (98-109); Glucose 85 mg/dL (70-99); Osmolality,Calculated 286 (280-300); Sodium 138 mEq/L (136-145); eGFR For African Americans > 60 (> 60); eGFR For Non-African Americans > 60 (> 60)
[2016-10-05 05:54] LABS: Thyroid Stimulating Hormone 1.332 mcIU/mL (0.350-4.840)
--- NOTE | 2016-10-05 06:10 | Electrocardiograph Report ---
[place] [address] Test Date: 2016-10-03 Pat Name: Clara Wong Department: 103 Room: 2N4 Gender: F [employer]: KASIA : 1945 Requested By: Gaetano Blackburn Order Number: [id number] Reading MD: Santos Colbert MD Measurements Intervals [place] Rate: 186 P: SC: 0 QRS: -36 QRSD: 68 T: 128 QT: 245 QTc: 341 Interpretive Statements ATRIAL FIBRILLATION WITH RAPID VENTRICULAR RESPONSE BORDERLINE LEFT AXIS DEVIATION POOR R-WAVE PROGRESSION NONSPECIFIC ST \T\ T WAVE ABNORMALITY Electronically Signed On 10-05-2016 6:09:05 EDT by Santos Colbert MD
[2016-10-05] MEDS: *HR* Enoxaparin 80 MG/0.8 ML SYRINGE SQ SCH (06:36)
[2016-10-05] MEDS: Furosemide 20 MG/2 ML VIAL IVP SCH ×2 (08:44→17:39)
[2016-10-05] MEDS: Metoprolol XL (24 HR) Succ 25 MG TAB.ER.24H PO SCH ×2 (08:44→20:15)
[2016-10-05] MEDS: Aspirin 81 MG TAB.CHEW PO SCH (08:44)
[2016-10-05] MEDS: Gabapentin 300 MG CAPSULE PO SCH ×2 (08:45→20:15)
[2016-10-05] MEDS: TARCEVA PO SCH (08:45)
--- NOTE | 2016-10-05 09:15 | Internal Med Progress Note ---
Date of Encounter: 10/05/16 Time of Encounter: 09:12 - Assessment and plan (1) Atrial fibrillation with RVR Current Visit: Yes Status: Acute Assessment and plan: Stop Cardizem drip. Transition to oral diltiazem. Continue metoprolol. Obtain echocardiogram. Continue telemetric monitoring. Follow-up with cardiology. The patient is receiving 75 mg Lovenox every 12 hours which I believe is too high a dose for her given that her weight is 50 kg. We will switch her back to 50 mg enoxaparin twice a day and hold tonight's dose for a thoracentesis tomorrow. (2) Acute on chronic heart failure Current Visit: Yes Status: Acute Assessment and plan: We will obtain echocardiogram. Continue with IV Lasix. Monitor kidney function. Strict I's and O's and daily weights.. Qualifiers: Heart failure type: diastolic Qualified Code(s): I50.33 - Acute on chronic diastolic (congestive) heart failure (3) Elevated troponin Current Visit: Yes Status: Acute Assessment and plan: Troponin elevation shows a flat profile, could be secondary to demand ischemia or CHF. Troponin trended down. (4) Coronary artery disease Current Visit: Yes Status: Acute Assessment and plan: Continue with aspirin and beta melina and statin. Qualifiers: Coronary Disease-Associated Artery/Lesion type: [place] artery [place] vs. transplanted heart: [place] heart Associated angina: without angina Qualified Code(s): I25.10 - Atherosclerotic heart disease of [place] coronary artery without angina pectoris (5) Non-small cell lung cancer Current Visit: No Status: Chronic Assessment and plan: Appreciate oncology recommendations. Continue with oral chemotherapy. 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 (7) Pleural effusion, left Current Visit: Yes Status: Acute Assessment and plan: We will obtain a diagnostic and therapeutic thoracentesis tomorrow. - Subjective Interval history: 10/05/16: Patient reports improvement in her shortness of breath, no cough or sputum production. Denies subjective fevers. Patient reports mild shortness of breath at rest which has improved since yesterday. Denies associated chest pain. - Constitutional Vitals: Temp Pulse Resp BP Pulse Ox 97.3 F L 106 18 101/67 94 L 10/05/16 08:25 10/05/16 08:25 10/05/16 08:25 10/05/16 08:25 10/05/16 08:25 General appearance: Present: A&O X 3 - Eye Eye exam: Present: PERRL, conjuntiva pink, sclera anicteric Pupils: Present: PERRL - Respiratory Respiratory exam: Present: CTAB. Absent: accessory muscle use, rales, rhonchi, wheezes Additional comments: Decreased breath sounds at the right base - Cardiovascular Cardiovascular exam: Present: irregular rhythm, RRR, +S1, +S2. Absent: diastolic murmur, gallop, rubs, systolic murmur - GI/Abdominal GI/Abdominal exam: Present: normal bowel sounds, soft, no peritoneal signs. Absent: distended, tenderness - Extremities Exam Extremities exam: Present: warm, radial pulses palpable and symetrical. Absent : calf tenderness, cyanotic, pedal edema - Skin Skin exam: Present: dry, intact Internal Medicine: Result - Labs CBC & Chem 7: 10/05/16 05:04 10/05/16 05:04 Labs: Short CBC 10/05/16 Range/Units 05:04 WBC 4.0 L (4.3-11.1) K/mcL Hgb 12.1 (11.5-15.4) g/dL Hct 38.8 (35.3-44.9) % Plt Count 200 (140-400) K/mcL Neutrophils # 1.5 L (1.6-8.9) K/mcL BMP 10/05/16 05:04 Sodium 138 Potassium 4.0 Chloride 101 Carbon Dioxide 29 BUN 14 Creatinine 0.86 Glucose 85 Calcium 8.9 - ABG Interpretation ABG results: PT/INR, D-dimer PT 13.7 Seconds (9.4-12.1) H 10/03/16 12:35 Consult Discharge Plan - Plan Referrals: Elton Gates MD [Primary Care Provider] -
--- NOTE | 2016-10-05 10:54 | ECHO - Doppler Report ---
Echocardiogram Name: Clara Wong Date of Study: 10/05/2016 Date: 1945 Ht: 60.0 in Medical Record#: [id number] Age: 71 Wt: 165.0 lb Gender: Female BSA: 1.72 Order #: [id number] Location: [facility] Room #: [id number] Reading Physician: Enoc Leyva MD, [facility] [address] Supervisor: Douglas Arrington RDCS Ordering Physician: Brendan Obrien CNP Primary Physician: Elton Gates MD Indications: Atrial fibrillation Impressions: LVEF 45-50%. Mild segmental left ventricular systolic dysfunction. Moderately dilated left atrium. There is a moderate pericardial effusion present. There is no echocardiographic evidence of tamponade. Recommend limited echo for effusion this week to assess stability. No pulmonary hypertension. Technically sub-optimal due to poor echocardiographic windows. Left Ventricular Wall Motion: Rest Echo Findings The apical anterior, mid anterior, basal anterior, apical septal, mid inferior septal, basal inferior septal, mid anterior septal and basal anterior septal [place] were hypokinetic. All other wall segments showed normal motion. Findings: ECG Findings * Atrial fibrillation. Aortic Valve * Mild aortic regurgitation. * Aortic valve not well visualized. * No aortic stenosis. Tricuspid Valve * Mild tricuspid regurgitation. * Estimated RVSP is 32 mmHg. * Estimated RA pressure is 3-5 mmHg. * No pulmonary hypertension. * No tricuspid stenosis. Pulmonic Valve * No pulmonic stenosis. * Mild pulmonic regurgitation. Study Quality * Technically sub-optimal due to poor echocardiographic windows. Pericardium * There is a moderate pericardial effusion present. * There is no echocardiographic evidence of tamponade. Left Ventricle * LVEF 45-50%. * Indeterminate diastolic function. * Mild segmental left ventricular systolic dysfunction. IVC * > 50% respiratory change * Normal IVC dimensions and inspiratory collapse. Left Atrium * Moderately dilated left atrium. Interatrial Septum * No evidence of PFO by color Doppler. History Hypercholesteremia Family History of CAD History of CAD/PTCA Myocardial Infarction Congestive Heart Failure 06/12/13 a Previous Echo was performed. Measurements: BP: 93/ 73 2D Normal Values RVIDd: 2.40 cm <2.7 cm IVSd: .71 cm 0.6 - 1.0 cm LVIDd: 3.96 cm 3.7 - 5.6 cm LVPWd: .79 cm 0.6 - 1.1 cm LVIDs: 3.03 cm 1.5 - 3.6 cm AO: 1.90 cm < 4.0 cm LA: 4.70 cm 2.0 - 4.0cm %FS: 23.50 cm >25 % LA volume: 46 Mitral Valve Peak E:.91 m/sec Peak E' Lat Natan:9.25 cm/s Peak E' Med Natna:4.35 cm/s E/E' Lat Ratio:9.9 E/E' Med Ratio:21 Aortic Valve AI pressure Half-time: 412.00 msec Tricuspid Valve TV Regurg Peak Grad: 32.00mmHg TV Regurg Peak Natan: 2.76m/sec Pulmonic Valve Pressure 1/2 time: 328.5msec Updated by Enoc Leyva MD, [facility] on 10/05/2016 10:46:37 AM electronically signed on 10/05/2016 10:47:39 AM with status of Final Wall Motion [place]: 1=Normal, 2=Hypokinesis, 3=Akinesis, 4=Dyskinesis, 5=Aneurysmal, 6=Hyperkinetic, X=Not Visualized (Blank)=Missing
--- NOTE | 2016-10-05 12:43 | Cardiology Progress Note ---
Date of Encounter: 10/05/16 Time of Encounter: 12:41 Assessment and Plan (1) Atrial fibrillation with RVR Current Visit: Yes Status: Acute Paroxysmal. Initially diagnosed in 2013 per records. Pt reports she was never started on anticoagulation. HR currently 90s-1teens at bedside. Off Cardizem gtt and on PO Cardizem 30mg S3srgnl transitioned by hospitalist. On home BB Toprol XL 25mg BID. BP 90s systolic. If RVR continues, will need to consider adding digoxin for further rate control. K 4.0. Echo resulted--EF previously 70%, now 45-50%--mild segmental systolic function, moderately dilated left atrium, moderate pericardial effusion no evidence on tamponade, but recommend rechecking with limited echo this week. CHADSVASC score 4 (Age, HTN, Female, CAD). Also hypercoaguable state given her malignancy. Recommend anticoagulation. Discussed Coumadin vs. NOACs. Pt prefers NOAC. Will marx check eliquis. Currently on Lovenox for anticoagulation. Will not start Eliquis until after thoracentesis/possible LHC for decreased EF with segmental dysfunction. (2) Congestive heart failure Current Visit: Yes Status: Acute BNP 2516, Chest CTA shows pleural effusions--moderate Left. Oncology has recommended thoracentesis for diagnostic evaluation and for symptom relief. Agree with IV diuresis--20mg IV BID. Recommend strict I/O, Na and fluid restriction, daily weights. Prior echo in 2012 EF was 70%. Current echo shows EF has decreased to 45-50%-- mild segmental systolic dysfunction. Moderately dilated left atrium. Moderate pericardial effusion without tamponade. Plan to discuss with oncology regarding her [facility] prognosis of lung cancer with mets to brain. Per oncology notes, seems to be stable. If life expectancy > 1 year, will discuss LHC for further ischemic evaluation. Qualifiers: Congestive heart failure type: combined Congestive heart failure chronicity : acute Qualified Code(s): I50.41 - Acute combined systolic (congestive) and diastolic (congestive) heart failure (3) Elevated troponin Current Visit: Yes Status: Acute 0.12, 0.16, 0.16, 0.09. Flat and adynamic in setting of A-Fib with RVR and CHF exacerbation--likely secondary to demand ischemia. Nondiagnostic for ACS. Pt denies chest pain. Echo showed EF 45-50% mild segmental systolic dysfunction. Will consider LHC during inpt stay. (4) Coronary artery disease Current Visit: Yes Status: Acute Reports hx of PCI x 3 in 2003 at [facility]. ASA, Statin, BB. Qualifiers: Coronary Disease-Associated Artery/Lesion type: [place] artery [place] vs. transplanted heart: [place] heart Associated angina: without angina Qualified Code(s): I25.10 - Atherosclerotic heart disease of [place] coronary artery without angina pectoris (5) Pericardial effusion Current Visit: Yes Status: Acute Moderate pericardial effusion on echo without evidence of tamponade. Recommend repeat limited echo this week to reassess size of pericardial effusion. Discussion w patient/family: The assessment and plan as outlined above was discussed with the patient and/or family members who expressed understanding and agreement. All questions were answered. Thank you for involving us in the care of your patient. Please call with any questions. I will discuss all the above with Dr. Diaz and make changes as necessary. Subjective Principal diagnosis: A-Fib RVR, CHF Interval history: Pt reports breathing is much improved today. Denies chest pain. Echo resulted-- EF 45-50%, mild segmental systolic dysfunction, moderately dilated left atrium, moderate pericardial effusion without evidence of tamponade--recommend repeat limited echo this week to re-evaluate. 24 hour tele AVG HR 91 A-Fib. Objective Vital Signs, Last 4 Hours Temp Pulse Resp BP Pulse Ox 10/05/16 12:00 98.3 F 114 18 96/60 95 Vital Signs Temp Pulse Resp BP Pulse Ox 10/05/16 12:00 98.3 F 114 18 96/60 95 10/05/16 08:25 97.3 F L 106 18 101/67 94 L 10/05/16 08:00 94 L 10/05/16 06:23 99.1 F 95 12 87/58 96 10/04/16 21:33 98.4 F 97 17 93/73 97 10/04/16 16:00 98.3 F 97 16 97/75 97 Intake and Output 10/04/16 10/05/16 10/05/16 23:59 07:59 15:59 Intake Total 123.0 / 123.0 360 / 360 Output Total 600 / 600 Balance 123.0 / 123.0 -240 / -240 Intake: IV Fluids 123.0 / 123.0 Cardizem 125 MG In 123.0 / 123.0 Dextrose 5% 100 ML @ 5 MG /HR 5 mls/hr IVC .Q24H [facility] Rx#:[id number] Oral 360 / 360 Output: Urine 600 / 600 Other: Meal Breakfast Percent of Meal Consumed 100% Weight 75 kg Patient Weight 10/05/16 23:59 Weight 75 kg General: Conversant, No Apparent Distress HEENT: Atraumatic, Normocephaly, Mucus Membranes Moist Neck: No JVD, Normal carotid pulses Cardiac: Other (irregularly irregular) Lungs: Other (diminished) Neuro: Alert and responsive, No focal deficits noted Abdomen: Soft, Non-Tender Skin: No rashes noted on visualized skin Musculoskeletal: No Chest Wall Tenderness Extremities: No Clubbing, No Cyanosis, No Edema, Normal Pulses Results 10/05/16 05:04 10/05/16 05:04 Lab Results 10/05/16 10/05/16 05:04 05:04 WBC 4.0 L Hgb 12.1 Hct 38.8 Plt Count 200 Sodium 138 Potassium 4.0 Chloride 101 Carbon Dioxide 29 BUN 14 Creatinine 0.86 Glucose 85 Calcium 8.9 TSH 1.332 Short CBC 10/05/16 Range/Units 05:04 WBC 4.0 L (4.3-11.1) K/mcL Hgb 12.1 (11.5-15.4) g/dL Hct 38.8 (35.3-44.9) % Plt Count 200 (140-400) K/mcL Neutrophils # 1.5 L (1.6-8.9) K/mcL BMP 10/05/16 Range/Units 05:04 Sodium 138 (136-145) mEq/L Potassium 4.0 (3.5-4.5) mEq/L Chloride 101 (98-109) mEq/L Carbon Dioxide 29 (19-29) mEq/L BUN 14 (7-20) mg/dL Creatinine 0.86 (0.57-1.11) mg/dL Glucose 85 (70-99) mg/dL Calcium 8.9 (8.6-10.8) mg/dL Active Medications Acetaminophen (Tylenol) 650 mg PO Q6HR PRN PRN Reason: Mild Pain (1-3) Stop: 04/04/17 18:36 Aspirin (Aspirin) 81 mg PO DAILY [facility] Stop: 04/05/17 09:01 Last Admin: 10/05/16 08:44 Dose: 81 mg Diltiazem HCl (Cardizem) 30 mg PO Q6HR [facility] Stop: 04/06/17 12:01 Last Admin: 10/05/16 12:12 Dose: 30 mg Furosemide (Lasix) 20 mg IVP BIDDIURETIC [facility] Stop: 04/04/17 19:01 Last Admin: 10/05/16 08:44 Dose: 20 mg Gabapentin (Neurontin) 600 mg PO HS [facility] Stop: 04/05/17 21:01 Last Admin: 10/04/16 21:05 Dose: 600 mg Gabapentin (Neurontin) 300 mg PO QAM [facility] Stop: 04/05/17 15:16 Last Admin: 10/05/16 08:45 Dose: 300 mg Lovastatin (Mevacor) 20 mg PO HS [facility] Stop: 04/05/17 21:01 Last Admin: 10/04/16 21:06 Dose: 20 mg Metoprolol Succinate (Toprol Xl) 25 mg PO BID [facility] Stop: 04/05/17 10:16 Last Admin: 10/05/16 08:44 Dose: 25 mg Naloxone HCl (Narcan) 0.4 mg IVP Q2MIN PRN PRN Reason: Opioid Reversal Stop: 04/04/17 18:36 Pharmacy Profile Note (Patient Taking Own Medication) 1 each PO DAILY [facility] Stop: 04/05/17 09:01 Last Admin: 10/05/16 08:45 Dose: 1 each Potassium Chloride (Potassium Chloride) 40 meq PO DAILY [facility] Stop: 04/05/17 10:16 Last Admin: 10/05/16 08:44 Dose: 40 meq - Imaging and Cardiology Echo: report reviewed - EKG Interpretation EKG results cardiology: other (24 hour tele AVG HR 91, A-Fib.) Consult Discharge Plan - Plan Referrals: Elton Gates MD [Primary Care Provider] -
[2016-10-06 06:59] LABS: Basophils # 0.1 K/mcL (0.0-0.2); Basophils % 1.3 %; Eosinophils # 0.3 K/mcL (0.0-0.6); Hematocrit 40.5 % (35.3-44.9); Hemoglobin 12.8 g/dL (11.5-15.4); Immature Granulocytes % 0.2 % (0-4); Lymphocytes # 2.2 K/mcL (0.6-4.6); Lymphocytes % 46.5 %; Mean Corpuscular HGB Conc 31.6 g/dL (31.6-35.5); Mean Corpuscular Hemoglobin 27.8 pg (28.0-33.3); Mean Corpuscular Volume 87.9 fL (83.0-100.0); Mean Platelet Volume 10.1 fL (9.4-12.4); Monocytes # 0.7 K/mcL (0.0-1.3); Monocytes % 14.8 %; Neutrophils # 1.5 K/mcL (1.6-8.9); Platelet Count 217 K/mcL (140-400); Red Blood Count 4.61 M/mcL (3.82-4.97); Red Cell Distribution Width 15.7 % (11.5-14.5); Segmented Neutrophils % 31.2 %
[2016-10-06 07:05] LABS: BUN/Creatinine Ratio 19 (6-26); Blood Urea Nitrogen 18 mg/dL (7-20); Calcium 9.5 mg/dL (8.6-10.8); Carbon Dioxide 26 mEq/L (19-29); Chloride 101 mEq/L (98-109); Glucose 91 mg/dL (70-99); Osmolality,Calculated 283 (280-300); Potassium 4.7 mEq/L (3.5-4.5); Sodium 136 mEq/L (136-145); eGFR For African Americans > 60 (> 60); eGFR For Non-African Americans 58 (> 60)
[2016-10-06] MEDS: Furosemide 20 MG/2 ML VIAL IVP SCH ×2 (08:32→17:26)
[2016-10-06] MEDS: Aspirin 81 MG TAB.CHEW PO SCH (08:41)
[2016-10-06] MEDS: Gabapentin 300 MG CAPSULE PO SCH ×2 (08:41→20:53)
[2016-10-06] MEDS: TARCEVA PO SCH (08:41)
[2016-10-06] MEDS ORDERED: 0.9 % Sodium Chloride 1,000 ML ONE ×2 (09:15→10:26)
[2016-10-06] MEDS ORDERED: Heparin 1,000 UNITS/500 mL NS 500 ML ONE (09:15)
[2016-10-06] MEDS ORDERED: *HR* Heparin 10,000 UNIT/10 ML VIAL ONE (09:15)
[2016-10-06] MEDS ORDERED: Nitroglycerin 1,000 MCG/10 ML VIAL IV ONE (10:17)
[2016-10-06] MEDS ORDERED: *HR* Midazolam HCl 2 MG/2 ML VIAL ONE (10:33)
[2016-10-06] MEDS ORDERED: *HR* FentaNYL (PF) 100 MCG/2 ML VIAL ONE (10:33)
--- NOTE | 2016-10-06 10:45 | Pre-Sedation Evaluation ---
Pre-sedation evaluation - Pre-sedation checklist Date of procedure: 10/06/16 Procedure: heart cath Recent Vitals: Last Vital Signs Temp 97.6 F 10/06/16 07:00 Pulse 65 10/06/16 07:00 Resp 15 10/06/16 07:00 BP 99/63 10/06/16 07:00 Pulse Ox 97 10/06/16 07:00 H&P (including ROS) documented in medical record: Yes Previous reaction to sedatives/anesthetics: No Dietary Status: NPO after Midnight Dentition: dentures removed ASA Classification *see protocol: CLASS II-Mild systemic disease Plan of Care: Pt appropriate candidate for procedure/moderate/conscious sedation , Risks/benefits of procedure/sedation discussed w/ patient/family
[2016-10-06] MEDS ORDERED: Tirofiban 5 MG/100ML 5 MG/100 ML BAG IV ONE (11:08)
[2016-10-06] MEDS ORDERED: DOPamine Premix 0 MG/0 ML BAG ONE (11:17)
[2016-10-06] MEDS ORDERED: *HR* Phenylephrine 10 MG/ML VIAL ONE (11:17)
[2016-10-06] MEDS: Metoprolol XL (24 HR) Succ 25 MG TAB.ER.24H PO SCH ×2 (11:21→20:53)
[2016-10-06] MEDS ORDERED: Tirofiban 12.5 MG/250ML 12.5 MG/250 ML BAG IVC SCH ×2 (12:15→12:45)
[2016-10-06] MEDS ORDERED: *HR* HYDROcodone/Acet 5/325 mg TABLET PO ONE (12:45)
--- NOTE | 2016-10-06 14:40 | Invasive Diagnostic Lab Proc ---
Name: Clara Wong Date of Study: 10/06/2016 Date: 1945 Ht: 60.0in Medical Record#: [id number] Age: 71 Wt: 110.23lb Gender: Female BSA: 1.45 Order #: [id number] BMI: 21.53 Physicians Procedure Physician: Enoc Leyva MD, [facility] Referring MD: Referring MD: Staff Name Position Time In [place] RT (R) Scrub 10:32 AM Carlie Pineda RN Manager Labor Relations 10:32 AM Maira Childress RN Monitor 10:32 AM Indications Indication Non-Stemi Procedures Performed Procedure L HRT ARTERY/VENTRICLE ANGIO PRQ CARD BM STENT W/ANGIO 1 VSL IVUS CORONARY 1ST VESSEL S\\T\\I PRQ CARD ALICE STENT W/ANGIO 1 VSL Pre-Procedure Checklist Informed consent is complete signed and on chart. H\\T\\P is on chart. ID band is on and ID verified with patient. Patient NPO for procedure The procedure was described for the patient and questions were answered. Blood Pressure: 99/63 ECG is on chart. Rhythm: NSR Plan of Care Patient will tolerate the procedure without complications. Adequate level of comfort will be maintained. Hemodynamics will remain stable Patient will recover from procedure without complications. Respiratory function will be maintained. Cardiac rhythm will remain stable. Patient temperature will be maintained. Patient and/or family have verbalized understanding of the procedure. Patient Education Chief Complaint/Reason for Test: Cardiac Cath Developmental Category: Geriatric (65+ years) Developmentally Appropriate for Age: Yes Learning Barriers: None Education Needs: Procedure Education Method: Verbal Information Taught: Cardiac Cath Educational Evaluation: Able to repeat information Intravenous Access Time IV Size Location DC'd Fluid/Drip Rate Units RN 10:30 AM 22g 1" Patent On Arrival Lt Antecubital 0.9NaCl 25 ml/hr Carlie Pineda RN Allergies NKA No Known Allergies Vital Signs Time BP (mmHg) HR (bpm) O2 Sat. RR (bpm) LOC 99 / 63 65 97 % 15 10:33 AM / % 5 = Fully awake and oriented or at pre-proc level 10:48 AM / % 5 = Fully awake and oriented or at pre-proc level 10:32 AM 118 / 72 65 % 9 10:37 AM 122 / 73 67 100 % 22 10:42 AM 103 / 64 66 100 % 17 10:47 AM 102 / 61 64 96 % 21 10:52 AM 89 / 58 70 96 % 15 10:53 AM 84 / 55 65 97 % 10:54 AM 90 / 54 69 96 % 43 10:57 AM 89 / 55 66 96 % 23 11:02 AM 95 / 59 66 93 % 11:07 AM 100 / 62 64 100 % 18 12:02 PM 128 / 73 65 95 % 19 11:12 AM 108 / 64 64 98 % 11:17 AM 105 / 65 63 88 % 18 11:22 AM 109 / 63 64 100 % 29 11:27 AM 115 / 63 63 95 % 34 11:32 AM 112 / 63 62 95 % 27 11:37 AM 116 / 63 63 99 % 19 11:42 AM 114 / 67 64 100 % 21 11:47 AM 117 / 71 64 98 % 18 11:52 AM 120 / 68 62 94 % 18 11:57 AM 126 / 65 64 96 % 22 12:03 PM 121 / 75 65 100 % 18 5 = Fully awake and oriented or at pre-proc level 12:15 PM 118 / 65 62 100 % 18 5 = Fully awake and oriented or at pre-proc level 12:30 PM 121 / 74 62 100 % 16 5 = Fully awake and oriented or at pre-proc level 12:45 PM 120 / 73 63 100 % 16 5 = Fully awake and oriented or at pre-proc level 01:00 PM 120 / 75 63 93 % 16 5 = Fully awake and oriented or at pre-proc level 01:15 PM 122 / 72 62 100 % 16 4 = Oriented but drowsy 01:30 PM 120 / 71 61 96 % 16 5 = Fully awake and oriented or at pre-proc level 01:45 PM 119 / 73 62 96 % 16 5 = Fully awake and oriented or at pre-proc level 02:00 PM 118 / 74 64 95 % 16 5 = Fully awake and oriented or at pre-proc level 02:10 PM 119 / 73 67 95 % 15 5 = Fully awake and oriented or at pre-proc level 02:25 PM 118 / 74 65 98 % 11 5 = Fully awake and oriented or at pre-proc level 02:30 PM 120 / 64 98 % 12 5 = Fully awake and oriented or at pre-proc level Procedural Medications Time Medication Dose Units Method Given By 10:33 AM Oxygen 2 L/min nasal cannula Carlie Pineda RN 10:37 AM Versed 1 mg Intravenous Carlie Pineda RN 10:37 AM Fentanyl 25 mcg Intravenous Carlie Pineda RN 10:45 AM Versed 1 mg Intravenous Carlie Pineda RN 10:50 AM Lidocaine 2% 15 ml Subcutaneous Enoc Leyva MD, [facility] 11:10 AM Heparin 3000 units Intravenous Maira Childress RN 11:12 AM Aggrastat Bolus: 25 ml Intravenous Maira Childress RN 11:12 AM Nitroglycerin 50 mcg Intracoronary Enoc Leyva MD 11:13 AM Aggrastat 5mg/100ml 4.5 ml Intravenous Maira Childress RN 11:15 AM Oxygen 6 L/min nasal cannula Maira Childress RN 11:58 AM Plavix 600 mg Orally Carlie Pineda RN ASA Classification: CLASS II- Mild systemic disease (i.e. well-controlled diabetes, hypertension, asthma, cigarette smoking) Sabine Score Preprocedure Postprocedure Activity 2- Moves 4 extremities sustained head lift Activity 2- Moves 4 extremities sustained head lift Circulation 2- SBP +/= 20 points of pre-anesthetic level Circulation 2- SBP +/= 20 points of pre-anesthetic level Consciousness 2- Awake and alert oriented x 3 Consciousness 2- Awake and alert oriented x 3 O2 Saturation 2- Able to maintain O2 satruation of 92% on room air O2 Saturation 2- Able to maintain O2 satruation of 92% on room air Respiratory 1- Labored or limited respiration requires airway Respiratory 1- Labored or limited respiration requires airway Total Score 9 Total Score 9 Contrast Agent: Isovue Diagnostic Contrast: 188 ml Total Contrast: 188 ml Fluoro Dose: 922 mGy Activated Clotting Time Time Seconds to Clot 11:40 AM 400 12:02 PM 245 01:10 PM 192 02:03 PM 163 Procedure Log Time Note Enter By 10:31 AM Vitals capture started with the following parameters, Patient=Adult, Interval=5 min, Initial Ljdgmylr=251 mmHg, Deflation Rate=5 mmHg, Cuff placed on Left Arm 10:32 AM HR=65 bpm, RIKU=727/72 mmhg, Resp=9 B/min, Comment=NSR 10:32 AM Pt arrived to semiconductor lab technician 2 at 10:32 ejohnson 10:32 AM [place] RT (R) Position: Scrub Time in: 10:32 ejohnson 10:32 AM Carlie Pineda RN Position: Manager Labor Relations Time in: 10:32 ejohnson 10:32 AM Maira Childress RN Position: Monitor Time in: 10:32 ejohnson 10:32 AM Patient charges- Angio tray pack, Navilyst 3mm J, Pulse Oximetry and ACIST tubing and transducer ejohnson 10:32 AM Case Delayed No ejohnson 10:33 AM Hair removed from procedure site in procedure lab using clippers. Bilateral groin prepped with Chloraprep by [place] (R), safety strap applied then patient was draped. Skin intact. ejohnson 10:33 AM Physician arrived 10:33 ejohnson 10:33 AM ASA Class CLASS II- Mild systemic disease (i.e. well-controlled diabetes, hypertension, asthma, cigarette smoking) ejohnson 10:33 AM Meet and greet completed ejohnson 10:33 AM Sign in performed according to hospital policy. ejohnson 10:33 AM Procedure start 10:33 ejohnson 10:33 AM Time: 10:33 Oxygen on at 2 L/min per nasal cannula by Carlie Pineda RN ejohnson 10:33 AM Time: 10:33 Patient comfortable and pain free: Yes ejohnson 10:33 AM Time: 10:33LOC: 5 = Fully awake and oriented or at pre-proc level ejohnson 10:34 AM Recorded ECG: HR=64 Condition=Condition 1 10:37 AM HR=67 bpm, PTTO=499/73 mmhg, TdN8=725.0 %, Resp=22 B/min, Comment=SR 10:37 AM Time: 10:37 Versed 1 mg Intravenous Given by Carlie Pineda RN ejohnsbrendan 10:37 AM Time: 10:37 Fentanyl 25 mcg Intravenous Given by Carlie Pineda RN ejohtaty 10:42 AM Pressure channel 1 zero failed. 10:42 AM HR=66 bpm, FDED=093/64 mmhg, ViQ3=187.0 %, Resp=17 B/min, Comment=NSR 10:42 AM Pressure channel 1 zeroed. 10:45 AM Time: 10:45 Versed 1 mg Intravenous Given by Carlie Pineda RN ejohtaty 10:47 AM HR=64 bpm, VTLT=899/61 mmhg, SpO2=96.0 %, Resp=21 B/min, Comment=SR 10:48 AM Time out performed according to hospital policy ejohnson 10:48 AM Time: 10:48 Patient comfortable and pain free: Yes ejohnson 10:48 AM Time: 10:48LOC: 5 = Fully awake and oriented or at pre-proc level ejohnson 10:50 AM Time: 10:50 15 ml Lidocaine 2% to right groin Subcutaneous Given by Enoc Leyva MD, [facility] ejohnson 10:52 AM Unsuccessful access attempt # 1 into the right Femoral artery. Manual pressure applied to achieve hemostasis, was unable to advance wire ejohnson 10:52 AM HR=70 bpm, NIBP=89/58 mmhg, SpO2=96.0 %, Resp=15 B/min, Comment=SR 10:52 AM NIBP STAT measurement started. 10:53 AM HR=65 bpm, NIBP=84/55 mmhg, SpO2=97.0 %, Comment=SR 10:54 AM NIBP STAT measurement started. 10:54 AM Access obtained by percutaneous puncture. 5Fr 10cm Terumo [place] sheath placed in right Femoral artery. [id number] ejohnson 10:54 AM 5Fr FL 4 catheter inserted over the wire DNC, then wire removed ejohnson 10:54 AM HR=69 bpm, NIBP=90/54 mmhg, SpO2=96.0 %, Resp=43 B/min, Comment=NSR 10:55 AM Recorded Pressure: Ao, HR=69, Condition=Condition 1 (Aorta) Ao 78/53/64 10:55 AM LCA angiography performed in multiple views. ejohnson 10:57 AM HR=66 bpm, NIBP=89/55 mmhg, SpO2=96.0 %, Resp=23 B/min, Comment=NSR 10:57 AM Catheter removed ejohnson 10:57 AM 5Fr FR 4 catheter inserted over the wire DNC, then wire removed ejohnson 11:00 AM 5Fr 3DRC catheter inserted over the wire [id number], then wire removed ejohnson 11:01 AM Recorded Pressure: Ao, HR=54, Condition=Condition 1 (Aorta) Ao 74/53/62 11:01 AM RCA angiography performed in YI. ejohnson 11:01 AM Catheter removed ejohnson 11:02 AM HR=66 bpm, NIBP=95/59 mmhg, SpO2=93.0 %, Comment=NSR 11:02 AM 5Fr Pigtail catheter inserted over the wire DNC, then wire removed ejohnson 11:02 AM Pressure channel 1 zero failed. 11:02 AM Recorded Pressure: LV, HR=69, Condition=Condition 1 (Left Ventricle) LV 91/3/8 11:04 AM Catheter removed ejohnson 11:04 AM Recorded Pressure: LV, Ao, HR=69, Condition=Condition 1 (Left Ventricle) LV 97/4/18, (Aorta) Ao 93/46/65 11:04 AM Coronary Dominance: Left ejohnson 11:04 AM Lesion found in LMCA. Pre Stenosis: 20 Pre JESSICA Flow: 3: Complete and Brisk Flow/Perfusion ejohnson 11:04 AM Lesion found in Proximal Circumflex. Pre Stenosis: 80 Pre JESSICA Flow: 3: Complete and Brisk Flow/Perfusion ejohnson 11:05 AM Lesion found in Proximal RCA. Pre Stenosis: 60 Pre JESSICA Flow: 3: Complete and Brisk Flow/Perfusion ejohnson 11:05 AM Left Main Coronary Artery with 20% stenosis ejohnson 11:05 AM Mid/Distal Left Anterior Descending Coronary Artery and diagonal branches with 70% stenosis. ejohnson 11:05 AM Circumflex, Obtuse Marginal, Left Posterior Descending, and Left Posterolateral Coronary Arteries with 80 % stenosis. ejohnson 11:06 AM Right Coronary, Right Posterior Descending Arteries with Right Posterolateral and Acute Marginal branches with 60 % stenosis. ejohnson 11:07 AM HR=64 bpm, MLTP=443/62 mmhg, KhX3=611.0 %, Resp=18 B/min, Comment=SR 11:07 AM Inflation device was opened. ejohnson 11:08 AM Sheath exchanged for a 6 Fr 11 cm Cordis Silvia sheath [id number] ejohnson 11:10 AM 6Fr EBU 3.25 Medtronic guide catheter was used to cannulate the PCI vessel successfully. reused? No ejohnson 11:11 AM .014 Prowater 180cm guide wire across target lesion- successful. reused? No ejohnson 11:11 AM Time: 11:10 Heparin 3000 units Intravenous Given by Maira Childress RN ejohnson 11:11 AM .014 PT Graphix 180cm guide wire across target lesion- successful. reused? No ejohnson 11:12 AM HR=64 bpm, CCUJ=687/64 mmhg, SpO2=98.0 %, Comment=NSR 11:12 AM Time: 11:12 Aggrastat Bolus: 25 ml Intravenous Given by Maira Childress RN Serrato pump ejohnson 11:13 AM Time: 11:12 Nitroglycerin 50 mcg Intracoronary Given by Enoc Leyva MD ejohnson 11:13 AM Time: 11:13 Aggrastat 5mg/100ml 4.5 ml Intravenous Given by Maira Childress RN Serrato pump ejohnson 11:14 AM 2.5 mm x 8 mm Emerge Monorail balloon across target lesion- successful. reused? No ejohnson 11:15 AM Time: 11:15 Oxygen on at 6 L/min per nasal cannula by Maira Childress RN ejohnson 11:15 AM Inflation device was opened. ejohnson 11:17 AM HR=63 bpm, EUBQ=510/65 mmhg, SpO2=88.0 %, Resp=18 B/min, Comment=NSR 11:18 AM Balloon inflated @ 6 tirso for 7 seconds ejohnson 11:19 AM Balloon inflated @ 8 tirso for 7 seconds ejohnson 11:20 AM Recorded Pressure: Ao, HR=63, Condition=Condition 1 (Aorta) Ao 96/62/78 11:21 AM Balloon catheter removed intact. ejohnson 11:21 AM 3.0mm x 12mm Synergy drug-eluting stent across target lesion- successful Lot #[id number] ejohnson 11:22 AM HR=64 bpm, YIVD=567/63 mmhg, JkJ2=500.0 %, Resp=29 B/min, Comment=NSR 11:24 AM Stent delivery system removed intact. ejohnson 11:25 AM 3.0mm x 8mm Synergy drug-eluting stent across target lesion- successful Lot #[id number] ejohnson 11:26 AM Stent deployed @ 12 tirso for 12 seconds ejohnson 11:26 AM NIBP STAT measurement started. 11:27 AM HR=63 bpm, MHKX=585/63 mmhg, SpO2=95.0 %, Resp=34 B/min, Comment=NSR 11:28 AM Stent delivery system removed intact. ejohnson 11:28 AM 3.25 mm x 6mm NC Emerge balloon across target lesion- successful. reused? No ejohnson 11:30 AM Balloon inflated @ 14 tirso for 11 seconds ejohnson 11:30 AM Balloon inflated @ 12 tirso for 5 seconds ejohnson 11:31 AM Balloon inflated @ 20 tirso for 10 seconds ejohnson 11:32 AM HR=62 bpm, ZBHB=027/63 mmhg, SpO2=95.0 %, Resp=27 B/min, Comment=NSR 11:33 AM Balloon catheter removed intact. ejohnson 11:33 AM Recorded Pressure: Ao, HR=61, Condition=Condition 1 (Aorta) Ao 111/59/79 11:36 AM 3.6Fr/40mHz Virtual[employer] Software Opti Cross IVUS catheter was inserted into guide catheter and advanced to lesion. IVUS study was done and the catheter was removed. ejohnson 11:37 AM HR=63 bpm, SKRW=033/63 mmhg, SpO2=99.0 %, Resp=19 B/min, Comment=NSR 11:40 AM Ivus catheter turned on. ejohnson 11:42 AM HR=64 bpm, PKWH=175/67 mmhg, WnF8=464.0 %, Resp=21 B/min, Comment=NSR 11:43 AM IVUS catheter removed intact ejohnson 11:46 AM 2.5x8mm balloon re-inserted. ejohnson 11:47 AM HR=64 bpm, SIZA=298/71 mmhg, SpO2=98.0 %, Resp=18 B/min, Comment=NSR 11:48 AM Balloon inflated @ 14 tirso for 6 seconds ejohnson 11:48 AM Balloon catheter removed intact. ejohnson 11:49 AM 3.0x16mm stent re-inserted. ejohnson 11:50 AM Stent deployed @ 14 tirso for 17 seconds ejohnson 11:50 AM Stent delivery system removed intact. ejohnson 11:51 AM 3.25x6mm NC balloon re-inserted. ejohnson 11:52 AM HR=62 bpm, KWGC=533/68 mmhg, SpO2=94.0 %, Resp=18 B/min, Comment=NSR 11:52 AM Balloon inflated @ 16 tirso for 9 seconds ejohnson 11:53 AM Balloon inflated @ 16 tirso for 6 seconds ejohnson 11:53 AM Balloon inflated @ 20 tirso for 10 seconds ejohnson 11:53 AM Balloon inflated @ 20 tirso for 12 seconds ejohnson 11:54 AM Balloon inflated @ 20 tirso for 6 seconds ejohnson 11:55 AM Balloon catheter removed intact. ejohnson 11:55 AM Guide wire removed intact. ejohnson 11:56 AM Guide catheter removed intact. ejohnson 11:56 AM Procedure completed at 11:56 ejohnson 11:56 AM Bolus angiogram of right Femoral complete: 4 ml/sec for a total of 7 mls ejohnson 11:57 AM HR=64 bpm, MSWH=332/65 mmhg, SpO2=96.0 %, Resp=22 B/min, Comment=NSR 11:58 AM Sign out completed: Radiation Dose 922.46 mGy Fluoro Time: 11.3 Isovue 370 - 200ml contrast 188 ml given by Enoc Leyva MD, FACC. Complications: NoneCardiac Rehab Consult needed: YesConfirmed administered medications: Yes ejohnson 11:58 AM Time: 11:58 Plavix 600 mg Orally Given by Carlie Pineda RN ejohnson 11:59 AM Sheath left in place to be pulled on floor/holding areaV+Pad ejohnson 11:59 AM Post ECG NSR ejohnson 11:59 AM Post Blood Pressure 126/65 ejohnson 11:59 AM Information taught Cardiac Cath and PCI ejohnson 11:59 AM Education needs Procedure, Plan of Care, and Disease Process ejohnson 11:59 AM Learning barriers :None ejohnson 11:59 AM Education Methods Verbal ejohnson 11:59 AM Education evaluation Able to repeat information ejohnson 11:59 AM Family placed in consult room. ejohnson 12:00 PM Complications: None ejohnson 12:00 PM Fluoro Time: 11.3 ejohnson 12:00 PM Isovue 370 - 200ml contrast 188 ml given by Enoc Leyva MD, FACC. ejohnson 12:00 PM Radiation Dose 922.46 mGy ejohnson 12:00 PM Site status No bleeding/hematoma - Rt Groin as reported by [place] RT (R) at 12:00 ejohnson 12:00 PM Opsite applied ejohnson 12:01 PM CathStat 12:02 PM HR=65 bpm, UHPW=176/73 mmhg, SpO2=95 %, Resp=19 B/min 12:06 PM Report given to Estephania GORDILLO Pt taken to Holding room Room #4. 12:06 ejohnson 12:06 PM Delay to floor Receiving unit staff issue ejohnson 12:07 PM Patient out of room: 12:06 ejohnson 12:50 PM patient c/o lower back pain 03/21. norco 5/325mg given per dr leyva order mprater 02:03 PM At 14:03 the ACT was 163 seconds. [email or web address] 02:10 PM Arterial sheath pulled using manual compression and vpad for 15 minutes by Mihaela Yao RN mprater 02:25 PM Site status No bleeding/hematoma - Rt Groin as reported by Mihaela Yao RN at 14:25 lparsley 02:25 PM Opsite applied lparsley 02:32 PM Report given to Shilpa GORDILLO Pt taken to 2NE Room #34. 14:32 lparsley 02:33 PM Patient out of room: 14:33 lparsley Complications Complication None None Hemodynamics Pressures Site Systolic/A Wave Diastolic/V Wave Mean AO 78 53 64 AO 74 53 62 LV 91 3 8 LV 97 4 18 AO 93 46 65 AO 96 62 78 AO 111 59 79 Post Procedure Information Blood Pressure: 126/65 mmHg Rhythm: NSR Post procedural instructions were given Site Checks Time Location Status Staff Sheath In? Note 12:00 PM Rt Groin No bleeding/hematoma [place] RT (R) 12:15 PM Rt Groin No bleeding/ No Hematoma Estephania Ruiz RN Yes 12:30 PM Rt Groin No bleeding/ No Hematoma Estephania Ruiz RN Yes 12:45 PM Rt Groin No bleeding/ No Hematoma Estephania Ruiz RN Yes 01:00 PM Rt Groin No bleeding/ No Hematoma Estephania Ruiz RN Yes 01:15 PM Rt Groin No bleeding/ No Hematoma Estephania Ruiz RN Yes 01:30 PM Rt Groin No bleeding/ No Hematoma Estephania Ruiz RN Yes 01:45 PM Rt Groin No bleeding/ No Hematoma Estephania Ruiz RN Yes 02:00 PM Rt Groin No bleeding/ No Hematoma Mihaela Yao RN Yes 02:25 PM Rt Groin No bleeding/ No Hematoma Mihaela Yao RN 02:25 PM Rt Groin No bleeding/hematoma Mihaela Yao RN Pulses Time Site Pre-Procedure Post-Procedure Note 10/06/2016 10:30:00 AM Bilateral radial 2+ 2+ 10/06/2016 10:30:00 AM Bilateral DP \\T\\ PT 1+ 1+ 10/06/2016 12:15:00 PM Bilateral DP \\T\\ PT 10/06/2016 12:45:00 PM Bilateral DP \\T\\ PT 10/06/2016 1:00:00 PM Bilateral DP \\T\\ PT 1+ 10/06/2016 1:15:00 PM Bilateral DP \\T\\ PT 10/06/2016 1:30:00 PM Bilateral DP \\T\\ PT 10/06/2016 2:00:00 PM Bilateral DP \\T\\ PT 10/06/2016 2:30:00 PM Bilateral DP \\T\\ PT 1+ Updated by Mihaela Yao RN on 10/06/2016 2:36:04 PM electronically signed on 10/06/2016 2:36:33 PM with status of Final
--- NOTE | 2016-10-06 18:28 | Internal Med Progress Note ---
Date of Encounter: 10/06/16 Time of Encounter: 18:26 - Assessment and plan (1) Atrial fibrillation with RVR Current Visit: Yes Status: Acute Assessment and plan: Stop Cardizem drip. Transition to oral diltiazem. Continue metoprolol. Obtain echocardiogram. Continue telemetric monitoring. Follow-up with cardiology. 10/06/2016 clinically stable and will continue present medications (2) Acute on chronic heart failure Current Visit: Yes Status: Acute Assessment and plan: We will obtain echocardiogram. Continue with IV Lasix. Monitor kidney function. Strict I's and O's and daily weights.. 10/06/2016 Underwent cardiac cath awaiting cardiology follow up/recommendations Qualifiers: Heart failure type: diastolic Qualified Code(s): I50.33 - Acute on chronic diastolic (congestive) heart failure (3) Non-small cell lung cancer Current Visit: No Status: Chronic Assessment and plan: Appreciate oncology recommendations. Continue with oral chemotherapy. 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 (5) Pleural effusion, left Current Visit: Yes Status: Acute Assessment and plan: We will obtain a diagnostic and therapeutic thoracentesis tomorrow. - Subjective Interval history: seen and examined. she is scheduled for cardiac cath today - Constitutional Vitals: Temp Pulse Resp BP Pulse Ox 96.1 F L 64 14 93/58 97 10/06/16 16:33 10/06/16 16:33 10/06/16 16:33 10/06/16 16:33 10/06/16 16:33 General appearance: Present: A&O X 3, no acute distress, answers questions appropriately - Head Head exam: Present: atraumatic, normocephalic - Eye Eye exam: Present: PERRL, conjuntiva pink, sclera anicteric Pupils: Present: PERRL - Neck Neck exam general surgery: Present: supple, trachea midline. Absent: lymphadenopathy - Respiratory Respiratory exam: Present: CTAB. Absent: accessory muscle use, rales, rhonchi, wheezes - Cardiovascular Cardiovascular exam: Present: RRR, +S1, +S2. Absent: diastolic murmur, gallop, rubs, systolic murmur - GI/Abdominal GI/Abdominal exam: Present: normal bowel sounds, soft, no peritoneal signs. Absent: distended, tenderness - Extremities Exam Extremities exam: Present: warm, radial pulses palpable and symetrical. Absent : calf tenderness, cyanotic, pedal edema - Neurological Exam Neurological exam: Present: CN II-XII intact, oriented X3, no focal deficits. Absent: pronater drift, facial droop, speech deficit - Skin Skin exam: Present: dry, intact Internal Medicine: Result - Labs CBC & Chem 7: 10/06/16 06:37 10/06/16 06:37 Labs: Short CBC 10/06/16 Range/Units 06:37 WBC 4.7 (4.3-11.1) K/mcL Hgb 12.8 (11.5-15.4) g/dL Hct 40.5 (35.3-44.9) % Plt Count 217 (140-400) K/mcL Neutrophils # 1.5 L (1.6-8.9) K/mcL BMP 10/06/16 06:37 Sodium 136 Potassium 4.7 H Chloride 101 Carbon Dioxide 26 BUN 18 Creatinine 0.95 Glucose 91 Calcium 9.5 - ABG Interpretation ABG results: PT/INR, D-dimer PT 13.7 Seconds (9.4-12.1) H 10/03/16 12:35 Consult Discharge Plan - Plan Additional Instructions: pcp requested Referrals: Enoc Leyva MD [Partnered Physician] - 10/13/16 9:05 am Elton Gates MD [Primary Care Provider] -
[2016-10-07 06:08] LABS: Basophils # 0.1 K/mcL (0.0-0.2); Basophils % 1.5 %; Eosinophils # 0.3 K/mcL (0.0-0.6); Eosinophils % 7.5 %; Hematocrit 37.9 % (35.3-44.9); Hemoglobin 11.3 g/dL (11.5-15.4); Lymphocytes # 1.6 K/mcL (0.6-4.6); Lymphocytes % 40.5 %; Mean Corpuscular HGB Conc 29.8 g/dL (31.6-35.5); Mean Corpuscular Hemoglobin 26.6 pg (28.0-33.3); Mean Corpuscular Volume 89.2 fL (83.0-100.0); Monocytes # 0.6 K/mcL (0.0-1.3); Monocytes % 15.7 %; Neutrophils # 1.4 K/mcL (1.6-8.9); Platelet Count 192 K/mcL (140-400); Red Blood Count 4.25 M/mcL (3.82-4.97); Red Cell Distribution Width 15.4 % (11.5-14.5); Segmented Neutrophils % 34.8 %
[2016-10-07 06:20] LABS: BUN/Creatinine Ratio 24 (6-26); Blood Urea Nitrogen 20 mg/dL (7-20); Calcium 8.8 mg/dL (8.6-10.8); Carbon Dioxide 27 mEq/L (19-29); Chloride 104 mEq/L (98-109); Glucose 90 mg/dL (70-99); Osmolality,Calculated 288 (280-300); Sodium 138 mEq/L (136-145); eGFR For African Americans > 60 (> 60); eGFR For Non-African Americans > 60 (> 60)
[2016-10-07 06:30] LABS: Potassium 4.7 mEq/L (3.5-4.5)
[2016-10-07] MEDS: TARCEVA PO SCH (06:53)
[2016-10-07] MEDS: Aspirin 81 MG TAB.CHEW PO SCH (08:30)
[2016-10-07] MEDS: Gabapentin 300 MG CAPSULE PO SCH ×2 (08:31→22:06)
--- NOTE | 2016-10-07 09:43 | Invasive Diagnostic Lab ---
Name: Clara Wong Date of Study: 10/06/2016 Date: 1945 Ht: 152.4 cm /60.0 in Medical Record#: [id number] Age: 71 Wt: 50. kg / 110.23 lb Account/Order#: [id number] Gender: Female BSA: 1.45 Order #: [id number] Fluoro Dose: 922 mGy BMI: 21.53 Procedure Physician: Enoc Leyva MD, [facility] Referring MD: Referring MD: Procedures Performed: LEFT HEART CATH Stent w/ PTCA Single Major Vessel (LAD) IVUS CORONARY INITIAL VESSEL (LCx) Stent w/ PTCA Single Major Vessel (LCx) Indications: Non-Stemi. Systolic CHF Impressions: There is severe two vessel coronary artery disease. The left ventricle is normal and has severely abnormal contractility EF 30% Patient had successful PTCA/Drug-Eluting Stent placement in the Ostial proximal Circumflex with good stent apposition and no encroachment of LAD by IVUS Patient had successful PTCA/Drug-Eluting Stent placement in the mid LAD. Recommendations: Optimal medical therapy of patient's disease. Aggressive risk factor modification. History/Risk Factors: COPD CANCER GERD PERICARDIAL EFFUSION A-FIB RVR SOB RT LOWER LOBECTOMY CHF within 2 weeks Previous PCI Procedure Access obtained in the right Femoral artery by percutaneous puncture Patient had successful PTCA/Drug-Eluting Stent placement in the proximal Circ.Patient had successful PTCA/Drug-Eluting Stent placement in the mid LAD.A intravascular ultrasound catheter was fully inserted through the sheath into the distal part of the vessel. Image recording was initiated and coronary ultrasound images were acquired during slow pullback. Complications: None, None Contrast: Isovue 188ml Hemodynamics: Pressures Site Systolic/ A Wave Diastolic/ V Wave End Diastolic/ Mean HR AO 78 53 64 69 AO 74 53 62 54 LV 91 3 8 69 LV 97 4 18 68 AO 93 46 65 69 AO 96 62 78 63 AO 111 59 79 61 LV Ventriculography Ejection Method: LV Gram Ejection Fraction: 30% Wall Motion: SMITH Anterobasal Normal Anterolateral Akinesis Apical: Mild Hypokinesis Inferoapical Moderate Hypokinesis Inferobasal Normal Coronary Dominance: Left Lesion Findings/Interventions * Left Main Coronary Artery There is a 20% stenosis in the LMCA. The lesion has a JESSICA flow of 3 and has no thrombus present. * Left Anterior Descending There is a 12 mm long, 70% stenosis in the Mid LAD. The lesion has no thrombus present. An intervention was performed on the Mid LAD with a final stenosis of 0%. There were no lesion complications. The final JESSICA flow was 3. * Circumflex There is a 8 mm long, 80% stenosis in the Proximal Circumflex. The lesion has a JESSICA flow of 3, has no thrombus present. An intervention was performed on the Proximal Circumflex with a final stenosis of 0%. There were no lesion complications. The final JESSICA flow was 3. * Right Coronary Artery There is a 60% stenosis in the Proximal RCA which is a small vessel. The lesion has a JESSICA flow of 3. Interventional Device(s) Vessel Segment Type Name Diameter (mm) Length (mm) Proximal Circumflex Balloon Emerge Monorail 2.5 8 Proximal Circumflex Drug Eluting Stent Synergy 3 8 Proximal Circumflex Balloon NC Emerge 3.25 6 Mid LAD Drug Eluting Stent Synergy 3 12 Mid LAD Balloon Emerge Monorail 2.5 8 Mid LAD Balloon NC Emerge 3.25 6 Updated by Maira Childress RN on 10/06/2016 12:04:46 PM Enoc Leyva MD, FACC electronically signed on 10/07/2016 9:37:29 AM with status of Final
--- NOTE | 2016-10-07 09:56 | Cardiology Progress Note ---
Date of Encounter: 10/07/16 Time of Encounter: 09:51 Assessment and Plan (1) Coronary artery disease Current Visit: Yes Status: Acute Hx of PCI x 3 in 2003 at [facility]. S/P LHC yesterday with successful PCI/ALICE to prox circ and mid LAD. Recommend DAPT (ASA and Plavix) uninterrupted x 1 year. Pt verbalizes understanding. Continue BB, Statin. Right femoral access site healing well--no bleeding, hematoma or ecchymosis noted. Qualifiers: Coronary Disease-Associated Artery/Lesion type: grindstone artery [place] vs. transplanted heart: grindstone heart Associated angina: without angina Qualified Code(s): I25.10 - Atherosclerotic heart disease of grindstone coronary artery without angina pectoris (2) Atrial fibrillation with RVR Current Visit: Yes Status: Acute Paroxysmal. Initially diagnosed in 2012 per records. Pt reports she was never started on anticoagulation. Now is SR s/p LHC/PCI. On home BB Toprol XL 25mg BID. Will increase to 50mg BID. Stop Cardizem since EF was estimated to be 30% on C, 45-50% on echo. CHADSVASC score 4 (Age, HTN, Female, CAD). She is now on ASA and Plavix s/p PCI. Given her brain mets, there is concern of potential bleeding if she were to be on triple therapy. Do not recommend chronic anticoagulation for PAF at this time. Continue ASA and Plavix only. (3) Congestive heart failure Current Visit: Yes Status: Acute BNP 2516, Chest CTA shows pleural effusions--moderate Left. Agree with IV diuresis--20mg IV BID. Recommend strict I/O, Na and fluid restriction, daily weights. Prior echo in 2012 EF was 70%. Current echo shows EF has decreased to 45-50%-- mild segmental systolic dysfunction. Moderately dilated left atrium. Moderate pericardial effusion without tamponade. [facility] estimated EF 30%. S/P PCI to prox circ and mid LAD. Breathing now improved, no lower extremity edema noted. Appears near euvolemic. BP marginal, so unable to add ARCADIO-I since uptitrating BB. Consider adding ARCADIO-I as outpt if BP will tolerate. Qualifiers: Congestive heart failure type: combined Congestive heart failure chronicity : acute Qualified Code(s): I50.41 - Acute combined systolic (congestive) and diastolic (congestive) heart failure (4) Pericardial effusion Current Visit: Yes Status: Acute Moderate pericardial effusion on echo without evidence of tamponade. Recommend repeat limited echo this week to reassess size of pericardial effusion. Will order for today to reassess. (5) Cardiomyopathy Current Visit: Yes Status: Acute EF 45-50% on echo, 30% on LHC. Now s/p PCI to prox circ and mid LAD. Continue BB. No ARCADIO-I currently due to marginal BP while uptitrating BB for PAF. Consider adding ARCADIO-I as outpt if BP tolerates. Repeating limited echo today to reassess pericardial effusion. Qualifiers: Cardiomyopathy type: ischemic Qualified Code(s): I25.5 - Ischemic cardiomyopathy Discussion w patient/family: The assessment and plan as outlined above was discussed with the patient and/or family members who expressed understanding and agreement. All questions were answered. Thank you for involving us in the care of your patient. Please call with any questions. I will discuss all the above with Dr. Diaz and make changes as necessary. Subjective Principal diagnosis: A-Fib RVR, CHF Interval history: S/P LHC yesterday--Successful PCI/ALICE to mid circ and mid LAD. Circ dominant. There was 60% prox RCA small vessel, 20% left main disease. After LHC/PCI, pt converted to SR. EF estimated to be 30% on LHC. 24 hour tele AVG HR 71, now SR. Pt reports feeling well this AM--denies chest pain, denies any significant dyspnea. Objective Vital Signs, Last 4 Hours Temp Pulse Resp BP Pulse Ox 10/07/16 07:51 97.3 F L 60 16 103/65 96 Vital Signs Temp Pulse Resp BP Pulse Ox 10/07/16 07:51 97.3 F L 60 16 103/65 96 10/07/16 04:00 97.9 F 68 16 120/68 97 10/07/16 01:00 100 10/06/16 20:00 97.8 F 62 16 107/65 100 10/06/16 16:33 96.1 F L 64 14 93/58 97 10/06/16 15:45 96/67 10/06/16 15:30 92/56 10/06/16 15:15 67 116/70 10/06/16 14:37 60 18 118/70 99 Intake and Output 10/06/16 10/07/16 10/07/16 23:59 07:59 15:59 Intake Total 120 / 120 Balance 120 / 120 Intake: Oral 120 / 120 Other: Meal Breakfast Percent of Meal Consumed 90% Weight 50.8 kg Patient Weight 10/07/16 23:59 Weight 50.8 kg General: Conversant, No Apparent Distress HEENT: Atraumatic, Normocephaly, Mucus Membranes Moist Neck: No JVD, Normal carotid pulses Cardiac: Reg Rate and Rhythm, Normal S1 and S2, No Murmur Lungs: Other (diminished) Neuro: Alert and responsive, No focal deficits noted Abdomen: Soft, Non-Tender Skin: No rashes noted on visualized skin Musculoskeletal: No Chest Wall Tenderness Extremities: No Clubbing, No Cyanosis, No Edema, Normal Pulses Results 10/07/16 05:50 10/07/16 05:50 Lab Results 10/07/16 10/07/16 05:50 05:50 WBC 3.9 L Hgb 11.3 L D Hct 37.9 Plt Count 192 Sodium 138 Potassium 4.7 H Chloride 104 Carbon Dioxide 27 BUN 20 Creatinine 0.82 Glucose 90 Calcium 8.8 Short CBC 10/07/16 Range/Units 05:50 WBC 3.9 L (4.3-11.1) K/mcL Hgb 11.3 L D (11.5-15.4) g/dL Hct 37.9 (35.3-44.9) % Plt Count 192 (140-400) K/mcL Neutrophils # 1.4 L (1.6-8.9) K/mcL BMP 10/07/16 Range/Units 05:50 Sodium 138 (136-145) mEq/L Potassium 4.7 H (3.5-4.5) mEq/L Chloride 104 (98-109) mEq/L Carbon Dioxide 27 (19-29) mEq/L BUN 20 (7-20) mg/dL Creatinine 0.82 (0.57-1.11) mg/dL Glucose 90 (70-99) mg/dL Calcium 8.8 (8.6-10.8) mg/dL Active Medications Acetaminophen (Tylenol) 650 mg PO Q6HR PRN PRN Reason: Mild Pain (1-3) Stop: 04/04/17 18:36 Aspirin (Aspirin) 81 mg PO DAILY MARINE Stop: 04/05/17 09:01 Last Admin: 10/07/16 08:30 Dose: 81 mg Clopidogrel Bisulfate (Plavix) 75 mg PO DAILY MARINE Stop: 04/08/17 09:01 Last Admin: 10/07/16 08:30 Dose: 75 mg Furosemide (Lasix) 20 mg IVP BIDDIURETIC MARINE Stop: 04/04/17 19:01 Last Admin: 10/06/16 17:26 Dose: Not Given Gabapentin (Neurontin) 600 mg PO HS MARINE Stop: 04/05/17 21:01 Last Admin: 10/06/16 20:53 Dose: 600 mg Gabapentin (Neurontin) 300 mg PO QAM MARINE Stop: 04/05/17 15:16 Last Admin: 10/07/16 08:31 Dose: 300 mg Lovastatin (Mevacor) 20 mg PO HS MARINE Stop: 04/05/17 21:01 Last Admin: 10/06/16 20:53 Dose: 20 mg Metoprolol Succinate (Toprol Xl) 25 mg PO ONCE ONE Stop: 10/08/16 12:01 Metoprolol Succinate (Toprol Xl) 50 mg PO BID MARINE Stop: 04/08/17 21:01 Naloxone HCl (Narcan) 0.4 mg IVP Q2MIN PRN PRN Reason: Opioid Reversal Stop: 04/04/17 18:36 Pharmacy Profile Note (Patient Taking Own Medication) 1 each PO DAILY MARINE Stop: 04/05/17 09:01 Last Admin: 10/07/16 06:53 Dose: 1 each Potassium Chloride (Potassium Chloride) 40 meq PO DAILY MARINE Stop: 04/05/17 10:16 Last Admin: 10/06/16 09:07 Dose: Not Given - Imaging and Cardiology Echo: report reviewed Cardiac cath: report reviewed - EKG Interpretation EKG results cardiology: other (24 hour tele AVG HR 71, now SR.) Consult Discharge Plan - Plan Additional Instructions: RISK FACTORS: STOP SMOKING: If you smoke, STOP. Smoking or tobacco use significantly increases your risk of heart disease because nicotine causes the arteries to narrow or constrict. It also causes fats to stick to the artery. Your chances of having a heart attack are greatly increased if you continue to smoke. For more information, call the education line for smoking cessation 2-436-MLFHEWK EAT A LOW FAT/CHOLESTEROL/SODIUM DIET: This diet may help reduce your chances of having a heart attack. LIFTING: Avoid lifting anything more than 10 pounds for 5-7 days Prior to straining, laughing, sneezing and/or coughing, apply manual pressure directly over insertion site. ACTIVITY: You may walk or climb stairs as tolerated You can resume sexual activity as tolerated In general, you are encouraged to engage in a minimum of 30 minutes or more of moderate intensity physical activity, such as brisk walking, daily or at least 3 -4 times weekly BATHING Do not submerge the site into water (bath tub, hot tub, swimming pool) for 1 week. This can be a source for infection into the blood stream. You may shower after 24 hours SITE CARE: After 24 hours, you may remove the dressing and leave the site open to air. Keep the site clean and dry. Clean gently and pat dry. You can expect bruising and tenderness that gradually resolve within a week or two. Return to work as instructed per your physician Resume driving as instructed per physician Keep all scheduled follow up appointments Resume medications as instructed IMPORTANT: If prescribed a Platelet Aggregation Inhibitor such as, Plavix, Brilinta or Effient: Duration of therapy is minimum one year These medications are often used in combination with Aspirin in prevention of future heart attacks Never discontinue unless consult with your [employer] STROKE (CVA) Risk factors for a stroke are: Age, cigarette smoking, diabetes, excessive alcohol consumption, family history, high blood pressure, overweight, physical inactivity, prior stroke, heart attack, diagnosis of carotid artery stenosis or other artery disease. Warning signs: Sudden numbness or weakness of the face, arm or leg; especially on one side of the body, sudden confusion, trouble speaking or understanding, sudden trouble seeing in one or both eyes, sudden trouble walking, dizziness, loss of balance or coordination, sudden severe headache with no cause. Call 911 or go to the Emergency Room. CONGESTIVE HEART FAILURE: If you have been diagnosed with Congestive Heart Failure (CHF) and your symptoms return, make an appointment with your physician Weigh yourself daily. Notify your physician if you have a weight gain of two or more pounds in one day or five or more pounds in one week. If you experience any difficulty breathing, please call 911 BLEEDING: Although the risk of bleeding is minimal, it can happen. If you have any bleeding from the site, apply firm pressure above the puncture site for 10-15 minutes. If the bleeding does not stop, continue manual pressure and call 911 Contact your physician if: You develop a fever greater than 101 degrees Fahrenheit Your site becomes reddened or has any drainage You have an increase in pain or burning at the site or if a large knot forms at the site. If you experience chest pain, shortness of breath, dizziness, or extreme tiredness, stop the activity and rest. Please notify your physicians office if you experience any of these symptoms and they are not relieved by rest please call 911!pcp requested Referrals: Enoc Leyva MD [Partnered Physician] - 10/13/16 9:05 am Elton Gates MD [Primary Care Provider] -
[2016-10-07] MEDS ORDERED: Metoprolol XL (24 HR) Succ 50 MG TAB.ER.24H PO SCH ×2 (12:00→21:00)
[2016-10-07] MEDS ORDERED: Diltiazem CD (24hr) 120 MG CAPSULE PO SCH (12:00)
[2016-10-07] MEDS: Metoprolol XL (24 HR) Succ 50 MG TAB.ER.24H PO SCH ×2 (13:16→22:03)
--- NOTE | 2016-10-07 17:47 | Internal Med Progress Note ---
Date of Encounter: 10/07/16 Time of Encounter: 17:43 - Assessment and plan (1) Acute on chronic heart failure Current Visit: Yes Status: Acute Assessment and plan: We will obtain echocardiogram. Continue with IV Lasix. Monitor kidney function. Strict I's and O's and daily weights.. 10/06/2016 Underwent cardiac cath awaiting cardiology follow up/recommendations 10/07/2016. Patient underwent cardiac catheterization. Patient had stent placed. Patient is presently on dual antiplatelet therapy. Cardiac catheterization site is well healed. I do not see any hematoma or any complications of the catheterization locally. We will follow recommendations from cardiology. Qualifiers: Heart failure type: diastolic Qualified Code(s): I50.33 - Acute on chronic diastolic (congestive) heart failure (2) Atrial fibrillation with RVR Current Visit: Yes Status: Acute Assessment and plan: Stop Cardizem drip. Transition to oral diltiazem. Continue metoprolol. Obtain echocardiogram. Continue telemetric monitoring. Follow-up with cardiology. 10/06/2016 clinically stable and will continue present medications 10/07/2016. Clinically stable. Heart rate is well controlled. Presently on metoprolol/Cardizem. We will continue the present medication for now. (3) Non-small cell lung cancer Current Visit: No Status: Chronic Assessment and plan: Appreciate oncology recommendations. Continue with oral chemotherapy. 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 (5) Pleural effusion, left Current Visit: Yes Status: Acute Assessment and plan: We will obtain a diagnostic and therapeutic thoracentesis tomorrow. - Subjective Interval history: seen and examined. she is scheduled for cardiac cath today 10/07/2016. Patient seen and examined. Patient denies chest pain, shortness of breath, dizziness, abdominal pain or diarrhea. - Constitutional Vitals: Temp Pulse Resp BP Pulse Ox 97.8 F 104 18 87/73 94 L 10/07/16 16:25 10/07/16 16:25 10/07/16 16:25 10/07/16 16:25 10/07/16 16:25 General appearance: Present: A&O X 3, no acute distress, answers questions appropriately - Head Head exam: Present: atraumatic, normocephalic - Eye Eye exam: Present: PERRL, conjuntiva pink, sclera anicteric Pupils: Present: PERRL - Neck Neck exam general surgery: Present: supple, trachea midline. Absent: lymphadenopathy - Respiratory Respiratory exam: Present: CTAB. Absent: accessory muscle use, rales, rhonchi, wheezes - Cardiovascular Cardiovascular exam: Present: RRR, +S1, +S2. Absent: diastolic murmur, gallop, rubs, systolic murmur - GI/Abdominal GI/Abdominal exam: Present: normal bowel sounds, soft, no peritoneal signs. Absent: distended, tenderness - Extremities Exam Extremities exam: Present: warm, radial pulses palpable and symetrical. Absent : calf tenderness, cyanotic, pedal edema - Neurological Exam Neurological exam: Present: CN II-XII intact, oriented X3, no focal deficits. Absent: pronater drift, facial droop, speech deficit - Skin Skin exam: Present: dry, intact Internal Medicine: Result - Labs CBC & Chem 7: 10/07/16 05:50 10/07/16 05:50 Labs: Short CBC 10/07/16 Range/Units 05:50 WBC 3.9 L (4.3-11.1) K/mcL Hgb 11.3 L D (11.5-15.4) g/dL Hct 37.9 (35.3-44.9) % Plt Count 192 (140-400) K/mcL Neutrophils # 1.4 L (1.6-8.9) K/mcL BMP 10/07/16 05:50 Sodium 138 Potassium 4.7 H Chloride 104 Carbon Dioxide 27 BUN 20 Creatinine 0.82 Glucose 90 Calcium 8.8 - ABG Interpretation ABG results: PT/INR, D-dimer PT 13.7 Seconds (9.4-12.1) H 10/03/16 12:35 Consult Discharge Plan - Plan Additional Instructions: RISK FACTORS: STOP SMOKING: If you smoke, STOP. Smoking or tobacco use significantly increases your risk of heart disease because nicotine causes the arteries to narrow or constrict. It also causes fats to stick to the artery. Your chances of having a heart attack are greatly increased if you continue to smoke. For more information, call the education line for smoking cessation 3-120-VLDWKWC EAT A LOW FAT/CHOLESTEROL/SODIUM DIET: This diet may help reduce your chances of having a heart attack. LIFTING: Avoid lifting anything more than 10 pounds for 5-7 days Prior to straining, laughing, sneezing and/or coughing, apply manual pressure directly over insertion site. ACTIVITY: You may walk or climb stairs as tolerated You can resume sexual activity as tolerated In general, you are encouraged to engage in a minimum of 30 minutes or more of moderate intensity physical activity, such as brisk walking, daily or at least 3 -4 times weekly BATHING Do not submerge the site into water (bath tub, hot tub, swimming pool) for 1 week. This can be a source for infection into the blood stream. You may shower after 24 hours SITE CARE: After 24 hours, you may remove the dressing and leave the site open to air. Keep the site clean and dry. Clean gently and pat dry. You can expect bruising and tenderness that gradually resolve within a week or two. Return to work as instructed per your physician Resume driving as instructed per physician Keep all scheduled follow up appointments Resume medications as instructed IMPORTANT: If prescribed a Platelet Aggregation Inhibitor such as, Plavix, Brilinta or Effient: Duration of therapy is minimum one year These medications are often used in combination with Aspirin in prevention of future heart attacks Never discontinue unless consult with your [employer] STROKE (CVA) Risk factors for a stroke are: Age, cigarette smoking, diabetes, excessive alcohol consumption, family history, high blood pressure, overweight, physical inactivity, prior stroke, heart attack, diagnosis of carotid artery stenosis or other artery disease. Warning signs: Sudden numbness or weakness of the face, arm or leg; especially on one side of the body, sudden confusion, trouble speaking or understanding, sudden trouble seeing in one or both eyes, sudden trouble walking, dizziness, loss of balance or coordination, sudden severe headache with no cause. Call 911 or go to the Emergency Room. CONGESTIVE HEART FAILURE: If you have been diagnosed with Congestive Heart Failure (CHF) and your symptoms return, make an appointment with your physician Weigh yourself daily. Notify your physician if you have a weight gain of two or more pounds in one day or five or more pounds in one week. If you experience any difficulty breathing, please call 911 BLEEDING: Although the risk of bleeding is minimal, it can happen. If you have any bleeding from the site, apply firm pressure above the puncture site for 10-15 minutes. If the bleeding does not stop, continue manual pressure and call 911 Contact your physician if: You develop a fever greater than 101 degrees Fahrenheit Your site becomes reddened or has any drainage You have an increase in pain or burning at the site or if a large knot forms at the site. If you experience chest pain, shortness of breath, dizziness, or extreme tiredness, stop the activity and rest. Please notify your physicians office if you experience any of these symptoms and they are not relieved by rest please call 911!pcp requested Referrals: Enoc Leyva MD [Partnered Physician] - 10/13/16 9:05 am Elton Gates MD [Primary Care Provider] -
--- NOTE | 2016-10-08 07:10 | ECHO - Doppler Report ---
Limited Echocardiogram Name: Clara Wong Date of Study: 10/07/2016 Date: 1945 Ht: 60.0 in Medical Record#: [id number] Age: 71 Wt: 111.0 lb Gender: Female BSA: 1.45 Order #: [id number] Location: [facility] Room #: [id number] Reading Physician: Santos Colbert MD, [facility] Finishing Trimmer: Rina Cerda Ordering Physician: Brendan Obrien CNP Primary Physician: Elton Gates MD Indications: Pleural effusion Impressions: Atrial fibrillation with RVR. LVEF 50%. The basal-mid anteroseptum is hypokinetic. Normal right ventricular size and function. Mildly dilated left atrium. Valvular function was not assessed on this limited study. There is a moderate pericardial effusion present. There is no change in the size of the effusion compared to the prior study performed 2 days ago. There is no echocardiographic evidence of tamponade, however, the IVC was not visualized on this study. Clinical correlation recommended. Left Ventricular Wall Motion: Rest Echo Findings The mid anterior septal and basal anterior septal larsen were hypokinetic. All other wall segments showed normal motion. Findings: Study Quality * Suboptimal echo windows. ECG Findings * Atrial fibrillation with RVR. Left Ventricle * LVEF 50%. The basal-mid anteroseptum is hypokinetic. * Normal LV chamber size and wall thickness. Right Ventricle * Normal right ventricular size and function. Left Atrium * Mildly dilated left atrium. Right Atrium * Normal right atrial size. Aorta * Normally sized aortic root. Pericardium * There is a moderate pericardial effusion present. There is no change in the size of the effusion compared to the prior study performed 2 days ago. * There is no echocardiographic evidence of tamponade, however, the IVC was not visualized on this study. Clinical correlation recommended. IVC * The IVC was not visualized. History Hypertension Years 20 Packs 1 Family History of CAD History of CAD/PTCA Myocardial Infarction Congestive Heart Failure 10/05/2016 a Previous Echo was performed. Measurements: BP: 87/ 73 2D Normal Values RVIDd: 2.40 cm IVSd: 1.00 cm 0.6 - 1.0 cm LVIDd: 3.50 cm 3.7 - 5.6 cm LVPWd: 1.00 cm 0.6 - 1.1 cm LVIDs: 2.70 cm 1.5 - 3.6 cm AO: 2.60 cm < 4.0 cm %FS: 22.90 cm >25 % LA volume: 48 Updated by Santos Colbert MD, [facility] on 10/08/2016 7:03:40 AM electronically signed on 10/08/2016 7:04:34 AM with status of Final Wall Motion Cornelius: 1=Normal, 2=Hypokinesis, 3=Akinesis, 4=Dyskinesis, 5=Aneurysmal, 6=Hyperkinetic, X=Not Visualized (Blank)=Missing
[2016-10-08] MEDS: Gabapentin 300 MG CAPSULE PO SCH ×2 (08:10→21:03)
[2016-10-08] MEDS: Aspirin 81 MG TAB.CHEW PO SCH (08:11)
[2016-10-08] MEDS: TARCEVA PO SCH (08:11)
[2016-10-08] MEDS: Furosemide 20 MG TABLET PO SCH (08:11)
[2016-10-08] MEDS: Metoprolol XL (24 HR) Succ 50 MG TAB.ER.24H PO SCH ×2 (08:11→21:04)
--- NOTE | 2016-10-08 09:50 | Internal Med Progress Note ---
Date of Encounter: 10/07/16 Time of Encounter: 09:46 - Assessment and plan (1) Pleural effusion, left Current Visit: Yes Status: Acute Assessment and plan: We will obtain a diagnostic and therapeutic thoracentesis tomorrow. 10/08/2016. Patient has occasional shortness of breath. Absent breath sounds on the left side. Diagnostic/therapeutic thoracentesis today. The reason for thoracentesis: #1 symptomatic relief from underlying pleural effusion, #2 patient is known to have a lung cancer on the right side We will send fluid for appropriate evaluation (2) Acute on chronic heart failure Current Visit: Yes Status: Acute Assessment and plan: We will obtain echocardiogram. Continue with IV Lasix. Monitor kidney function. Strict I's and O's and daily weights.. 10/06/2016 Underwent cardiac cath awaiting cardiology follow up/recommendations 10/07/2016. Patient underwent cardiac catheterization. Patient had stent placed. Patient is presently on dual antiplatelet therapy. Cardiac catheterization site is well healed. I do not see any hematoma or any complications of the catheterization locally. We will follow recommendations from cardiology. 10/08/2016. Patient is comfortable. No new issues noted overnight. Patient does complain off occasional shortness of breath. Noted that absent breath sounds on the left side. We will proceed with a left-sided thoracentesis. Qualifiers: Heart failure type: diastolic Qualified Code(s): I50.33 - Acute on chronic diastolic (congestive) heart failure (3) Atrial fibrillation with RVR Current Visit: Yes Status: Acute Assessment and plan: Stop Cardizem drip. Transition to oral diltiazem. Continue metoprolol. Obtain echocardiogram. Continue telemetric monitoring. Follow-up with cardiology. 10/06/2016 clinically stable and will continue present medications 10/07/2016. Clinically stable. Heart rate is well controlled. Presently on metoprolol/Cardizem. We will continue the present medication for now. 10/08/2016. Clinically stable. Heart rate is well controlled. Will continue present medication at this time. (4) Non-small cell lung cancer Current Visit: No Status: Chronic Assessment and plan: Appreciate oncology recommendations. Continue with oral chemotherapy. 10/08/2016. Patient is having non-small cell lung cancer on the right side. Patient has a worsening pleural effusion on the left side. We will do thoracentesis and send the fluid for appropriate testing. 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 - Subjective Interval history: seen and examined. she is scheduled for cardiac cath today 10/07/2016. Patient seen and examined. Patient denies chest pain, shortness of breath, dizziness, abdominal pain or diarrhea. 10/08/2016 Seen and examined. Patient is a occasional shortness of breath. Noted that patient has a left-sided effusion clinically absent breath sounds on the left side. - Constitutional Vitals: Temp Pulse Resp BP Pulse Ox 97.5 F L 73 18 110/69 95 10/08/16 08:00 10/08/16 08:00 10/08/16 08:00 10/08/16 08:00 10/08/16 08:18 General appearance: Present: A&O X 3, no acute distress, answers questions appropriately - Head Head exam: Present: atraumatic, normocephalic - Eye Eye exam: Present: PERRL, conjuntiva pink, sclera anicteric Pupils: Present: PERRL - Neck Neck exam general surgery: Present: supple, trachea midline. Absent: lymphadenopathy - Respiratory Respiratory exam: Present: CTAB. Absent: accessory muscle use, rales, rhonchi, wheezes Additional comments: Absent breath sounds on the left side. - Cardiovascular Cardiovascular exam: Present: RRR, +S1, +S2. Absent: diastolic murmur, gallop, rubs, systolic murmur - GI/Abdominal GI/Abdominal exam: Present: normal bowel sounds, soft, no peritoneal signs. Absent: distended, tenderness - Extremities Exam Extremities exam: Present: warm, radial pulses palpable and symetrical. Absent : calf tenderness, cyanotic, pedal edema - Neurological Exam Neurological exam: Present: CN II-XII intact, oriented X3, no focal deficits. Absent: pronater drift, facial droop, speech deficit - Skin Skin exam: Present: dry, intact Internal Medicine: Result - Labs CBC & Chem 7: 10/07/16 05:50 10/07/16 05:50 - ABG Interpretation ABG results: PT/INR, D-dimer PT 13.7 Seconds (9.4-12.1) H 10/03/16 12:35 Consult Discharge Plan - Plan Additional Instructions: RISK FACTORS: STOP SMOKING: If you smoke, STOP. Smoking or tobacco use significantly increases your risk of heart disease because nicotine causes the arteries to narrow or constrict. It also causes fats to stick to the artery. Your chances of having a heart attack are greatly increased if you continue to smoke. For more information, call the education line for smoking cessation 3-588-MXZLVMZ EAT A LOW FAT/CHOLESTEROL/SODIUM DIET: This diet may help reduce your chances of having a heart attack. LIFTING: Avoid lifting anything more than 10 pounds for 5-7 days Prior to straining, laughing, sneezing and/or coughing, apply manual pressure directly over insertion site. ACTIVITY: You may walk or climb stairs as tolerated You can resume sexual activity as tolerated In general, you are encouraged to engage in a minimum of 30 minutes or more of moderate intensity physical activity, such as brisk walking, daily or at least 3 -4 times weekly BATHING Do not submerge the site into water (bath tub, hot tub, swimming pool) for 1 week. This can be a source for infection into the blood stream. You may shower after 24 hours SITE CARE: After 24 hours, you may remove the dressing and leave the site open to air. Keep the site clean and dry. Clean gently and pat dry. You can expect bruising and tenderness that gradually resolve within a week or two. Return to work as instructed per your physician Resume driving as instructed per physician Keep all scheduled follow up appointments Resume medications as instructed IMPORTANT: If prescribed a Platelet Aggregation Inhibitor such as, Plavix, Brilinta or Effient: Duration of therapy is minimum one year These medications are often used in combination with Aspirin in prevention of future heart attacks Never discontinue unless consult with your Line Staker STROKE (CVA) Risk factors for a stroke are: Age, cigarette smoking, diabetes, excessive alcohol consumption, family history, high blood pressure, overweight, physical inactivity, prior stroke, heart attack, diagnosis of carotid artery stenosis or other artery disease. Warning signs: Sudden numbness or weakness of the face, arm or leg; especially on one side of the body, sudden confusion, trouble speaking or understanding, sudden trouble seeing in one or both eyes, sudden trouble walking, dizziness, loss of balance or coordination, sudden severe headache with no cause. Call 911 or go to the Emergency Room. CONGESTIVE HEART FAILURE: If you have been diagnosed with Congestive Heart Failure (CHF) and your symptoms return, make an appointment with your physician Weigh yourself daily. Notify your physician if you have a weight gain of two or more pounds in one day or five or more pounds in one week. If you experience any difficulty breathing, please call 911 BLEEDING: Although the risk of bleeding is minimal, it can happen. If you have any bleeding from the site, apply firm pressure above the puncture site for 10-15 minutes. If the bleeding does not stop, continue manual pressure and call 911 Contact your physician if: You develop a fever greater than 101 degrees Fahrenheit Your site becomes reddened or has any drainage You have an increase in pain or burning at the site or if a large knot forms at the site. If you experience chest pain, shortness of breath, dizziness, or extreme tiredness, stop the activity and rest. Please notify your physicians office if you experience any of these symptoms and they are not relieved by rest please call 911!pcp requested Referrals: Enoc Leyva MD [Partnered Physician] - 10/13/16 9:05 am Elton Gates MD [Primary Care Provider] -
--- NOTE | 2016-10-08 10:26 | Cardiology Progress Note ---
Date of Encounter: 10/07/16 Time of Encounter: 10:24 Assessment and Plan (1) Coronary artery disease Current Visit: Yes Status: Acute Hx of PCI x 3 in 2003 at [facility]. S/P LHC 10/06 with successful PCI/ALICE to prox circ and mid LAD. Recommend DAPT (ASA and Plavix) uninterrupted x 1 year. Pt verbalizes understanding. Continue BB, Statin. Right femoral access site healing well--no bleeding, hematoma or ecchymosis noted. Cardiology will sign off. Reconsult PRN. Follow-up as outpt in 3-4 weeks. Qualifiers: Coronary Disease-Associated Artery/Lesion type: [place] artery [place] vs. transplanted heart: [place] heart Associated angina: without angina Qualified Code(s): I25.10 - Atherosclerotic heart disease of [place] coronary artery without angina pectoris (2) Atrial fibrillation with RVR Current Visit: Yes Status: Acute Paroxysmal. Initially diagnosed in 2013 per records. Pt reports she was never started on anticoagulation. PAF on tele, currently SR. 24 hour tele AVG HR 97. On home BB Toprol XL 25mg BID. BP will not tolerate increase.. Stopped Cardizem since EF was estimated to be 30% on LHC, 45-50% on echo and since BP marginal. CHADSVASC score 4 (Age, HTN, Female, CAD). She is now on ASA and Plavix s/p PCI. Given her brain mets, there is concern of potential bleeding if she were to be on triple therapy. Do not recommend chronic anticoagulation for PAF at this time. Continue ASA and Plavix only. (3) Congestive heart failure Current Visit: Yes Status: Acute BNP 2516, Chest CTA shows pleural effusions--moderate Left. Planned for thoracentesis today. Agree with diuresis--transitioned to PO yesterday 20mg daily. Recommend strict I/O, Na and fluid restriction, daily weights. Prior echo in 2012 EF was 70%. Current echo shows EF has decreased to 45-50%-- mild segmental systolic dysfunction. Moderately dilated left atrium. Moderate pericardial effusion without tamponade. [facility] estimated EF 30%. S/P PCI to prox circ and mid LAD. Breathing now improved, no lower extremity edema noted. Appears near euvolemic. BP marginal, so unable to add ARCADIO-I. Consider adding ARCADIO-I as outpt if BP will tolerate. Qualifiers: Congestive heart failure type: combined Congestive heart failure chronicity : acute Qualified Code(s): I50.41 - Acute combined systolic (congestive) and diastolic (congestive) heart failure (4) Pericardial effusion Current Visit: Yes Status: Acute 10/05 echo--Moderate pericardial effusion without evidence of tamponade. Repeated limited echo yesterday and size unchanged--no evidence of tamponade. Will coordinate with office to recheck in 1-2 weeks. (5) Cardiomyopathy Current Visit: Yes Status: Acute EF 45-50% on echo, 30% on LHC. Now s/p PCI to prox circ and mid LAD. Continue BB. No ARCADIO-I currently due to marginal BP. Consider adding ARCADIO-I as outpt if BP tolerates. Repeated limited echo yesterday to reassess pericardial effusion and EF appeared to be 50%--low normal. Qualifiers: Cardiomyopathy type: ischemic Qualified Code(s): I25.5 - Ischemic cardiomyopathy Discussion w patient/family: The assessment and plan as outlined above was discussed with the patient and/or family members who expressed understanding and agreement. All questions were answered. Thank you for involving us in the care of your patient. Please call with any questions. I will discuss all the above with Dr. Diaz and make changes as necessary. Subjective Principal diagnosis: A-Fib RVR, CHF Interval history: S/P [facility] 10/06--Successful PCI/ALICE to mid circ and mid LAD. Circ dominant. There was 60% prox RCA small vessel, 20% left main disease. EF estimated to be 30% on [facility]. 24 hour tele AVG HR 97, PAF, currently SR. Pt reports feeling well this AM- -denies chest pain, occasional dyspnea. Limited echo resulted--EF 50% basal mid anteroseptum hypokinetic, moderate pericardial effusion with no change in size compared to prior study 2 days ago. No evidence of tamponade, IVC not well visualized. Objective Vital Signs, Last 4 Hours Temp Pulse Resp BP Pulse Ox 10/08/16 08:18 95 10/08/16 08:00 97.5 F L 73 18 110/69 95 Vital Signs Temp Pulse Resp BP Pulse Ox 10/08/16 08:18 95 10/08/16 08:00 97.5 F L 73 18 110/69 95 10/08/16 05:30 97.6 F 99 16 89/72 96 10/08/16 04:28 121 93/70 10/08/16 00:14 97.9 F 102 14 88/52 97 10/07/16 23:38 115 92/62 10/07/16 19:38 97.7 F 108 16 98/88 97 10/07/16 18:18 94 L 10/07/16 16:25 97.8 F 104 18 87/73 94 L 10/07/16 12:53 65 105/60 10/07/16 12:17 97.8 F 69 18 103/76 96 10/07/16 10:56 72 91/58 Intake and Output 10/07/16 10/08/16 10/08/16 23:59 07:59 15:59 Intake Total 240 / 240 240 / 240 Output Total 0 / 0 Balance 240 / 240 240 / 240 Intake: Oral 240 / 240 240 / 240 Output: Urine 0 / 0 Other: Meal Dinner Breakfast Percent of Meal Consumed 100% 50% Weight 52.9 kg Patient Weight 10/08/16 23:59 Weight 52.9 kg General: Conversant, No Apparent Distress HEENT: Atraumatic, Normocephaly, Mucus Membranes Moist Neck: No JVD, Normal carotid pulses Cardiac: Reg Rate and Rhythm, Normal S1 and S2, No Murmur Lungs: Other (diminished) Neuro: Alert and responsive, No focal deficits noted Abdomen: Soft, Non-Tender Skin: No rashes noted on visualized skin Musculoskeletal: No Chest Wall Tenderness Extremities: No Clubbing, No Cyanosis, No Edema, Normal Pulses Results 10/07/16 05:50 10/07/16 05:50 Active Medications Acetaminophen (Tylenol) 650 mg PO Q6HR PRN PRN Reason: Mild Pain (1-3) Stop: 04/04/17 18:36 Aspirin (Aspirin) 81 mg PO DAILY [facility] Stop: 04/05/17 09:01 Last Admin: 10/08/16 08:11 Dose: 81 mg Clopidogrel Bisulfate (Plavix) 75 mg PO DAILY [facility] Stop: 04/08/17 09:01 Last Admin: 10/08/16 08:11 Dose: 75 mg Furosemide (Lasix) 20 mg PO DAILY [facility] Stop: 04/09/17 09:01 Last Admin: 10/08/16 08:11 Dose: 20 mg Gabapentin (Neurontin) 600 mg PO HS [facility] Stop: 04/05/17 21:01 Last Admin: 10/07/16 22:06 Dose: 600 mg Gabapentin (Neurontin) 300 mg PO QAM [facility] Stop: 04/05/17 15:16 Last Admin: 10/08/16 08:10 Dose: 300 mg Lovastatin (Mevacor) 20 mg PO HS [facility] Stop: 04/05/17 21:01 Last Admin: 10/07/16 22:06 Dose: 20 mg Metoprolol Succinate (Toprol Xl) 25 mg PO BID [facility] Stop: 04/08/17 13:02 Last Admin: 10/08/16 08:11 Dose: 25 mg Naloxone HCl (Narcan) 0.4 mg IVP Q2MIN PRN PRN Reason: Opioid Reversal Stop: 04/04/17 18:36 Pharmacy Profile Note (Patient Taking Own Medication) 1 each PO DAILY [facility] Stop: 04/05/17 09:01 Last Admin: 10/08/16 08:11 Dose: 1 each Potassium Chloride (Potassium Chloride) 40 meq PO DAILY [facility] Stop: 04/05/17 10:16 Last Admin: 10/08/16 08:11 Dose: 40 meq - Imaging and Cardiology Echo: report reviewed Cardiac cath: report reviewed - EKG Interpretation EKG results cardiology: other (24 hour tele AVG HR 97, PAF) Consult Discharge Plan - Plan Additional Instructions: RISK FACTORS: STOP SMOKING: If you smoke, STOP. Smoking or tobacco use significantly increases your risk of heart disease because nicotine causes the arteries to narrow or constrict. It also causes fats to stick to the artery. Your chances of having a heart attack are greatly increased if you continue to smoke. For more information, call the education line for smoking cessation 7-280-KTPEBOD EAT A LOW FAT/CHOLESTEROL/SODIUM DIET: This diet may help reduce your chances of having a heart attack. LIFTING: Avoid lifting anything more than 10 pounds for 5-7 days Prior to straining, laughing, sneezing and/or coughing, apply manual pressure directly over insertion site. ACTIVITY: You may walk or climb stairs as tolerated You can resume sexual activity as tolerated In general, you are encouraged to engage in a minimum of 30 minutes or more of moderate intensity physical activity, such as brisk walking, daily or at least 3 -4 times weekly BATHING Do not submerge the site into water (bath tub, hot tub, swimming pool) for 1 week. This can be a source for infection into the blood stream. You may shower after 24 hours SITE CARE: After 24 hours, you may remove the dressing and leave the site open to air. Keep the site clean and dry. Clean gently and pat dry. You can expect bruising and tenderness that gradually resolve within a week or two. Return to work as instructed per your physician Resume driving as instructed per physician Keep all scheduled follow up appointments Resume medications as instructed IMPORTANT: If prescribed a Platelet Aggregation Inhibitor such as, Plavix, Brilinta or Effient: Duration of therapy is minimum one year These medications are often used in combination with Aspirin in prevention of future heart attacks Never discontinue unless consult with your Chemical Treatment Plant Technician STROKE (CVA) Risk factors for a stroke are: Age, cigarette smoking, diabetes, excessive alcohol consumption, family history, high blood pressure, overweight, physical inactivity, prior stroke, heart attack, diagnosis of carotid artery stenosis or other artery disease. Warning signs: Sudden numbness or weakness of the face, arm or leg; especially on one side of the body, sudden confusion, trouble speaking or understanding, sudden trouble seeing in one or both eyes, sudden trouble walking, dizziness, loss of balance or coordination, sudden severe headache with no cause. Call 911 or go to the Emergency Room. CONGESTIVE HEART FAILURE: If you have been diagnosed with Congestive Heart Failure (CHF) and your symptoms return, make an appointment with your physician Weigh yourself daily. Notify your physician if you have a weight gain of two or more pounds in one day or five or more pounds in one week. If you experience any difficulty breathing, please call 911 BLEEDING: Although the risk of bleeding is minimal, it can happen. If you have any bleeding from the site, apply firm pressure above the puncture site for 10-15 minutes. If the bleeding does not stop, continue manual pressure and call 911 Contact your physician if: You develop a fever greater than 101 degrees Fahrenheit Your site becomes reddened or has any drainage You have an increase in pain or burning at the site or if a large knot forms at the site. If you experience chest pain, shortness of breath, dizziness, or extreme tiredness, stop the activity and rest. Please notify your physicians office if you experience any of these symptoms and they are not relieved by rest please call 911!pcp requested Referrals: Enoc Leyva MD [Partnered Physician] - 10/13/16 9:05 am Elton Gates MD [Primary Care Provider] -
[2016-10-08] MEDS ORDERED: Metoprolol XL (24 HR) Succ 25 MG TAB.ER.24H PO ONE (12:00)
--- NOTE | 2016-10-08 14:07 | Procedure Note ---
<Santos Isaac - Last Filed: 10/08/16 14:02> Date of procedure: 10/08/16 Pre-op diagnosis: Pleural Effusion Post-op diagnosis: same Procedure: Written consent was obtained from the patient. The left posterior chest wall was surveyed using ultrasound and a small pleural effusion was noted. The skin was cleaned and draped in sterile fashion. The skin and subcutaneous tissues were anesthetized using 1% lidocaine. Using a 21-gauge needle approximately 5 mL of blood-tinged straw-colored fluid was withdrawn and placed in specimen container. A sunitha in the skin was then made and the needle over catheter was advanced into the pleural space until fluid was aspirated. The catheter was then advanced into the pleural space and the needle was withdrawn. Approximately 250 mL of blood-tinged straw-colored pleural fluid was removed and sent to lab for analysis. The catheter was then removed intact. Band-Aid was applied to the site. The patient tolerated procedure well, there are no immediate complications. Postprocedure chest x-ray is pending. The attending physician, Dr. Sapp, was present and supervised the entire procedure. Anesthesia: local Surgeon: Santos Isaac Estimated blood loss (cc): 5 Pathology: other (Pleural fluid sent to lab) Condition: stable Disposition: floor <Shaun Sapp - Last Filed: 10/09/16 09:03> Procedure: I examined this patient and my medical decision-making was reviewed with the SENIOR SOLUTIONS ARCHITECT/PA/Advanced Practice Nurse/Resident Physician. I agree with the documented findings, disposition and treatment plan as described except to the extent set forth below.
[2016-10-08 15:43] LABS: Amylase,Pleural Fluid 40 Units/L (No Ref Range); Glucose,Pleural Fluid 116 mg/dL (No Ref Range); LDH,Pleural Fluid 98 Units/L (No Ref Range); Total Protein,Pleural Fluid 1.8 g/dL (No Ref Range); Triglycerides, Pleural Fluid 10 mg/dL (No Ref Range)
[2016-10-08 15:58] LABS: RBC,Pleural Fluid 0.012 M/mcL
[2016-10-08 17:11] LABS: Appearance of Pleural Fl Cloudy (Clear)
[2016-10-09] MEDS: TARCEVA PO SCH (06:56)
[2016-10-09 06:57] VITALS: BP 99/72
--- NOTE | 2016-10-09 09:06 | Discharge Summary ---
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 Priority: Secondary Status: Acute - Discharge Medications Prescriptions: Clopidogrel [Plavix] 75 mg PO DAILY #60 tablet Home Medications: Albuterol Neb [Proventil Neb] 2.5 mg IH Q4HR 05/21/15 [History] Aspirin [Adult Low Dose Aspirin EC] 81 mg PO DAILY 05/21/15 [History] Calcium Carbonate [Tums] 500 mg PO DAILY 05/21/15 [History] Docusate [Colace] 100 mg PO BID 05/21/15 [History] Furosemide [Lasix] 40 mg PO DAILY PRN 05/21/15 [History] Lovastatin [Altoprev] 20 mg PO DAILY #90 tab.er.24h 04/08/16 [Rx] Metoprolol XL (24 HR) Succ [Toprol Xl] 25 mg PO BID #180 tab.er.24h 04/15/16 [Rx ] Diazepam [Valium] 1 tab PO TID PRN #30 tablet 06/10/16 [Rx] Erlotinib HCl [Tarceva] 100 mg PO DAILY 30 Days 06/30/16 [Rx] Hydrocodone/Acetaminophen [Adrian 5-325 Tablet] 1 tab PO TID PRN #90 tablet 07/23 [Rx] Omeprazole [PriLOSEC] 20 mg PO DAILY #90 capsule 08/05/16 [Rx] Fluticasone Propionate Nasal [Flonase] 50 mcg NS BID 10/03/16 [History] Gabapentin [Neurontin] 300 mg PO QAM 10/03/16 [History] Gabapentin [Neurontin] 600 mg PO HS 10/03/16 [History] Ranitidine HCl [Zantac] 150 mg PO BID 10/03/16 [History] Sertraline [Zoloft] 25 mg PO DAILY 10/03/16 [History] Tiotropium [Spiriva] 18 mcg IH DAILY 10/03/16 [History] Clopidogrel [Plavix] 75 mg PO DAILY #60 tablet 10/09/16 [Rx] Allergies/Adverse Reactions: Allergies No Known Allergies Allergy (Verified 05/15/15 08:52) Procedures/tests Complete & Pending: Procedures Performed prior 72 hours Category Date Time Status CL Cardiac Catheterization [CL] Routine [employer] T[employer] Supervisor 10/06/16 08:18 Completed EV limited echocardiogram Routine Y 10/07/16 10:08 Completed Date of admission: 10/03/16 19:01 Primary care physician: Elton Gates MD Consults: 10/07/16 07:52 Consult to Cardiac Rehabilitation-Phase1 [CONS] Routine Comment: Reason for Consult: CAD s/p PCI Call Completed: Yes Discharging clinician: Shaun Sapp - Patient Status Disposition: Home, Self-Care Condition: Good Functional capacity at discharge: uses cane/walker Overall status at discharge: patient is progressing back to baseline - Discharge Instructions Follow Up With: Enoc Leyva MD [Partnered Physician] - 10/13/16 9:05 am Elton Gates MD [Primary Care Provider] - Francisco Tony MD [Partnered Physician] - Additional Instructions: RISK FACTORS: STOP SMOKING: If you smoke, STOP. Smoking or tobacco use significantly increases your risk of heart disease because nicotine causes the arteries to narrow or constrict. It also causes fats to stick to the artery. Your chances of having a heart attack are greatly increased if you continue to smoke. For more information, call the education line for smoking cessation 2-947-FUATLMQ EAT A LOW FAT/CHOLESTEROL/SODIUM DIET: This diet may help reduce your chances of having a heart attack. LIFTING: Avoid lifting anything more than 10 pounds for 5-7 days Prior to straining, laughing, sneezing and/or coughing, apply manual pressure directly over insertion site. ACTIVITY: You may walk or climb stairs as tolerated You can resume sexual activity as tolerated In general, you are encouraged to engage in a minimum of 30 minutes or more of moderate intensity physical activity, such as brisk walking, daily or at least 3 -4 times weekly BATHING Do not submerge the site into water (bath tub, hot tub, swimming pool) for 1 week. This can be a source for infection into the blood stream. You may shower after 24 hours SITE CARE: After 24 hours, you may remove the dressing and leave the site open to air. Keep the site clean and dry. Clean gently and pat dry. You can expect bruising and tenderness that gradually resolve within a week or two. Return to work as instructed per your physician Resume driving as instructed per physician Keep all scheduled follow up appointments Resume medications as instructed IMPORTANT: If prescribed a Platelet Aggregation Inhibitor such as, Plavix, Brilinta or Effient: Duration of therapy is minimum one year These medications are often used in combination with Aspirin in prevention of future heart attacks Never discontinue unless consult with your Bailing Machine Operator STROKE (CVA) Risk factors for a stroke are: Age, cigarette smoking, diabetes, excessive alcohol consumption, family history, high blood pressure, overweight, physical inactivity, prior stroke, heart attack, diagnosis of carotid artery stenosis or other artery disease. Warning signs: Sudden numbness or weakness of the face, arm or leg; especially on one side of the body, sudden confusion, trouble speaking or understanding, sudden trouble seeing in one or both eyes, sudden trouble walking, dizziness, loss of balance or coordination, sudden severe headache with no cause. Call 911 or go to the Emergency Room. CONGESTIVE HEART FAILURE: If you have been diagnosed with Congestive Heart Failure (CHF) and your symptoms return, make an appointment with your physician Weigh yourself daily. Notify your physician if you have a weight gain of two or more pounds in one day or five or more pounds in one week. If you experience any difficulty breathing, please call 911 BLEEDING: Although the risk of bleeding is minimal, it can happen. If you have any bleeding from the site, apply firm pressure above the puncture site for 10-15 minutes. If the bleeding does not stop, continue manual pressure and call 911 Contact your physician if: You develop a fever greater than 101 degrees Fahrenheit Your site becomes reddened or has any drainage You have an increase in pain or burning at the site or if a large knot forms at the site. If you experience chest pain, shortness of breath, dizziness, or extreme tiredness, stop the activity and rest. Please notify your physicians office if you experience any of these symptoms and they are not relieved by rest please call 911!pcp requested - Diet and Activity Activity: increase activity as tolerated Diet: low fat, low cholesterol Interval History: Ms. Wong is a 71 year old female with past medical history significant for CAD status post stent, COPD and lung cancer currently being treated with oral chemotherapy who presented to the hospital for shortness of breath. She reports that for the last 2 weeks she had been progressively more short of breath, dyspnea morning she experienced severe shortness of breath at rest after she woke up. She used a nebulized bronchodilator with no relief. She denies any associated chest pain, reported moderate upper back pain and dry cough. Denies nausea vomiting diarrhea. Denies recent URI symptoms. Denies history of bleeding bruising and blood clots. She reports some dysphagia when she takes her pills and states that some of her pills get stuck. She states that she has had her esophagus stretched several times before Hospital course: Patient was hospitalized. The patient was evaluated by oncology for her previous history of lung cancer.. Patient had a persistent chest pain. Patient was seen by cardiology. Cardiology recommended left heart catheterization. During the left heart catheterization it was noted that patient had a obstruction for mid LAD, circumflex. She underwent PCI successfully. Cardiology recommends one year uninterrupted dual antiplatelet therapy. Noted that patient had a left-sided pleural effusion. She underwent aspiration of the pleural effusion. This is lymphocyte predominant pleural effusion. Cytology is pending. Plan Patient can go home. Patient will follow up with PCP in 1-2 weeks. Patient will follow-up with oncology in 1-2 weeks. Patient will ever follow up with the cardiology. Explained patient had cleaned the regarding initiation of a new medication. Side effects discussed. Time of discharge patient does not have any question concern, updates or recommendation during her hospital stay. - Time Spent with Patient Total time spent providing and/or coordinating discharge services: - Constitutional Vitals: Temp Pulse Resp BP Pulse Ox 97.4 F L 115 16 99/72 93 L 10/09/16 06:52 10/09/16 06:52 10/09/16 06:52 10/09/16 06:52 10/09/16 06:52 General appearance: Present: A&O X 3, no acute distress, answers questions appropriately
[2016-10-09] MEDS: Gabapentin 300 MG CAPSULE PO SCH (10:05)
[2016-10-09] MEDS: Furosemide 20 MG TABLET PO SCH (10:05)
[2016-10-09] MEDS: Metoprolol XL (24 HR) Succ 50 MG TAB.ER.24H PO SCH (10:05)
[2016-10-09] MEDS: Aspirin 81 MG TAB.CHEW PO SCH (10:05)
== END 2016-10-09 12:44 | disposition home or self-care (01) | DRG 246 ==
LOC: EMEROO 11:56 → 2NENU 11:56 → SUATTDRO 19:01
PROVIDERS: ADMIT Nurse Practitioner Family; ATTEND Internal Medicine

== ENCOUNTER 2017-05-11 10:06 | Inpatient (IN) ==
[2017-05-11] MEDS ORDERED: methylPREDNISolone 125 MG/2 ML VIAL IVP ONE (10:32)
[2017-05-11] MEDS ORDERED: Ipratropium/Albuterol Neb 3 ML IH ONE (10:32)
[2017-05-11] MEDS ORDERED: 0.9 % Sodium Chloride 1,000 ML IVC ONE (10:44)
[2017-05-11 11:00] LABS: Basophils % 0.9 %; Eosinophils # 0.2 K/mcL (0.0-0.6); Eosinophils % 4.4 %; Hematocrit 32.7 % (35.3-44.9); Hemoglobin 9.7 g/dL (11.5-15.4); Immature Granulocytes % 0.4 % (0-4); Lymphocytes # 1.2 K/mcL (0.6-4.6); Lymphocytes % 25.1 %; Mean Corpuscular HGB Conc 29.7 g/dL (31.6-35.5); Mean Corpuscular Hemoglobin 22.8 pg (28.0-33.3); Mean Corpuscular Volume 76.8 fL (83.0-100.0); Mean Platelet Volume 10.2 fL (9.4-12.4); Monocytes # 0.5 K/mcL (0.0-1.3); Monocytes % 11.8 %; Neutrophils # 2.6 K/mcL (1.6-8.9); Platelet Count 217 K/mcL (140-400); Red Blood Count 4.26 M/mcL (3.82-4.97); Red Cell Distribution Width 18.8 % (11.5-14.5); Segmented Neutrophils % 57.4 %
--- NOTE | 2017-05-11 11:00 | Emergency Department Note ---
Disposition Clinical Impression: Pulmonary nodule, Hemoptysis, Pleural effusion Atrial fibrillation Qualifiers: Atrial fibrillation type: paroxysmal Qualified Code(s): I48.0 - Paroxysmal atrial fibrillation Disposition: Admitted As Inpatient Condition: Good Time of Disposition: 14:10 SOB HPI - General Chief Complaint: ED Shortness of Breath/Dyspnea Stated Complaint: LISA Time Seen by Provider: 05/11/17 10:15 Source: patient Limitations: no limitations Nursing Notes Reviewed: Yes Vital Signs Reviewed: Yes - History of Present Illness 71 year old female presents to the ED with complants of shortness of breath and hemoptyosis. She has a history of lung cancer and partial right lobectomy and states that she is currently taking chemotherapy as a pill. Aayush states that since Wednesday she has been experincing chest pain with increased dyspnea and incresed need for oxygen requirements at home.She is currently tachycardic and frail appering and has obsvious wheezing on exam in all quadratsn expect for the lower right lung field. Appears dyspneic when speaking. Aayush states that she also has been experining cincreased hemopytosis over the past few days at well. blood tinged no clots. no history of DVT/PEs in the past, history of ACS. - Related Data Home Medications Medication Instructions Recorded Confirmed Albuterol Neb [Proventil Neb] 2.5 mg IH Q4HR 05/21/15 05/11/17 Aspirin [Adult Low Dose Aspirin EC] 81 mg PO DAILY 05/21/15 05/11/17 Calcium Carbonate [Tums] 500 mg PO DAILY 05/21/15 05/11/17 Docusate [Colace] 100 mg PO BID 05/21/15 05/11/17 Sertraline [Zoloft] 25 mg PO DAILY 10/03/16 05/11/17 Tiotropium [Spiriva] 18 mcg IH DAILY 10/03/16 05/11/17 Metoprolol XL (24 HR) Succ [Toprol 25 mg PO DAILY 10/28/16 05/11/17 XL] Oxygen 1 each .ROUTE AD 10/28/16 05/11/17 Atorvastatin [Lipitor] 40 mg PO DAILY 03/19/17 05/11/17 Tizanidine HCl [Zanaflex] 4 mg PO BID 03/19/17 05/11/17 Pantoprazole Sodium [Protonix] 40 mg PO DAILY 05/11/17 05/11/17 Previous Rx's Medication Instructions Recorded Clopidogrel [Plavix] 75 mg PO DAILY #30 tablet 01/13/17 HYDROcodone/Acet 5/325 mg [[place] 1 tab PO TID #90 tab 02/09/17 5-325 mg] Ranitidine HCl [Zantac] 150 mg PO BID #180 tablet 02/10/17 Erlotinib HCl [Tarceva] 100 mg PO DAILY 30 Days tablet 02/26/17 Gabapentin [Neurontin] 2 tab PO BID #120 capsule 04/14/17 Furosemide [Lasix] 40 mg PO DAILY #90 tablet 04/19/17 Folic Acid 1 mg PO DAILY #90 tablet 05/06/17 Allergies Allergy/AdvReac Type Severity Reaction Status Date / Time No Known Allergies Allergy Verified 03/19/17 09:01 Constitutional: Denies: fever, chills, weakness, weight change Eyes: Denies: eye pain, eye discharge, vision change ENT ED: Denies: ear pain, throat pain, dental pain, hearing loss, epistaxis, congestion, dysphagia Cardiovascular: Reports: chest pain, palpitations, dyspnea on exertion. Denies : edema, syncope Respiratory: Reports: cough, dyspnea, wheezes, hemoptysis. Denies: stridor Gastrointestinal: Denies: abdominal pain, nausea, vomiting, diarrhea, constipation, hematemesis, melena, hematochezia Genitourinary: Denies: dysuria, frequency, hematuria, discharge Musculoskeletal: Denies: back pain, neck pain, arthralgia, myalgia Integumentary: Denies: rash, abrasion, lesions Neurological: Denies: headache, weakness, numbness, paresthesias, confusion, abnormal gait, vertigo Psychiatric: Denies: anxiety, depression, suicidal thoughts, homicidal thoughts , auditory hallucinations, visual hallucinations Endocrine: Denies: fatigue Hematological/Lymphatic: Denies: easy bleeding, easy bruising Allergic/Immunologic: Denies: facial swelling, urticaria Past Medical History - Past Medical History Medical history: Reports: atrial fibrillation, cancer, COPD, GERD, myocardial infarction Surgical history: Reports: angioplasty/stent, cancer surgery, cholecystectomy Psychiatric history: Reports: anxiety, depression - Social History Smoking Status: Former smoker Smokeless Tobacco Status: No Alcohol use: Reports: none Drug use: Reports: none Physical Exam - General Limitations: no limitations General appearance: alert, in no apparent distress, cachectic - Head Head exam: atraumatic, normocephalic, normal inspection - Eye Eye exam: Present: normal appearance, PERRL, EOMI - Expanded Eye Exam Pupils: Left: reactive - ENT ENT exam: normal exam, normal oropharynx, mucous membranes moist - Expanded ENT Exam External ear exam: Present: normal external inspection Mouth exam: Present: normal external inspection Teeth exam: Present: normal inspection Throat exam: Present: normal inspection - Neck Neck exam: Present: normal inspection, full ROM, trachea midline - Chest Chest inspection: Present: normal inspection, symmetric chest wall rise - Respiratory Respiratory exam: Present: normal lung sounds bilaterally - Expanded Respiratory Exam Location: wheezes: Left, Right, Upper, Lower - Cardiovascular Cardiovascular exam: Present: tachycardia, irregular rhythm, normal heart sounds - Abdominal Exam Abdominal exam: Present: soft, Non-Tender. Absent: tenderness, distention, guarding, rebound, rigidity - Extremities Exam Extremities exam: Present: normal inspection, full ROM. Absent: tenderness, pedal edema - Expanded Upper Extremity Exam Shoulder exam: Present: normal inspection, full ROM Arm exam: Present: normal inspection, full ROM Elbow exam: Present: normal inspection, full ROM Forearm/Wrist exam: Present: normal inspection, full ROM Hand exam: Present: normal inspection, full ROM Vascular exam: Normal: capillary refill, radial pulse - Expanded Lower Extremity Exam Hip/Pelvis exam: Present: normal inspection, full ROM Upper leg exam: Present: normal inspection, full ROM Knee exam: Present: normal inspection, full ROM Lower leg exam: Present: normal inspection, full ROM Ankle exam: Present: normal inspection, full ROM Foot/toe exam: Present: normal inspection, full ROM Neurovascular/Tendon exam: Absent: motor deficit, sensory deficit, tendon deficit - Back Exam Back exam: Present: normal inspection, full ROM. Absent: tenderness - Neurological Exam Neurological exam: Present: alert, oriented X3 - Expanded Neurological Exam Patient oriented to: Present: person, place, time Coma Scale Eye Opening: Spontaneous Coma Scale Motor Response: Obeys Commands Coma Scale Verbal Response: Oriented Coma Scale Total: 15 - Psychiatric Psychiatric exam: Present: normal affect, normal mood - Skin Skin exam: Present: warm, dry, intact, normal color Course Course Narrative: we will do a cardiopulmosnt workup wiht CTA chest and treat with IVF/cardizem for the onset atrial fibrillation in addition to rule out PE vs. pneumonia - Consultations Consultation #1: discussed case with drill hand nd the hospitalist and they agree to accept patient to their service. Time: 14:09 Vital Signs Temperature 97.4 F L 05/11/17 10:07 Pulse Rate 68 05/11/17 10:07 Respiratory Rate 24 05/11/17 10:07 Blood Pressure 129/83 05/11/17 10:07 O2 Sat by Pulse Oximetry 0 05/11/17 10:07 Temperature 97.4 F L 05/11/17 10:07 Pulse Rate 104 05/11/17 13:28 Respiratory Rate 18 05/11/17 13:28 Blood Pressure 125/74 05/11/17 13:28 O2 Sat by Pulse Oximetry 96 05/11/17 13:28 Oxygen Delivery Oxygen Delivery Nasal Cannula Shortness of Breath/Dyspnea - Medical Records Medical records reviewed: Yes I reviewed the patient's medical records. - Lab Data Lab results reviewed: Yes I reviewed the patient's lab results. Result diagrams: 05/11/17 10:43 05/11/17 10:43 Lab Results 05/11/17 05/11/17 05/11/17 Range/Units 10:43 10:43 10:43 WBC 4.6 (4.3-11.1) K/mcL RBC 4.26 (3.82-4.97) M/mcL Hgb 9.7 L (11.5-15.4) g/dL Hct 32.7 L (35.3-44.9) % MCV 76.8 L (83.0-100.0) fL MCH 22.8 L (28.0-33.3) pg MCHC 29.7 L (31.6-35.5) g/dL RDW 18.8 H (11.5-14.5) % Plt Count 217 (140-400) K/mcL MPV 10.2 (9.4-12.4) fL Immature Gran % 0.4 (0-4) % Seg Neutrophils % 57.4 % Lymphocytes % 25.1 % Monocytes % 11.8 % Eosinophils % 4.4 % Basophils % 0.9 % Neutrophils # 2.6 (1.6-8.9) K/mcL Lymphocytes # 1.2 (0.6-4.6) K/mcL Monocytes # 0.5 (0.0-1.3) K/mcL Eosinophils # 0.2 (0.0-0.6) K/mcL Basophils # 0.0 (0.0-0.2) K/mcL PT 16.6 H (9.4-12.1) Seconds INR 1.5 APTT 29.4 (26.0-36.0) Seconds VBG pH (7.32-7.42) pH Units VBG pCO2 (41-51) mmHg VBG pO2 (25-50) mmHg VBG HCO3 (21-27) mEq/L Sodium 138 (136-145) mEq/L Potassium 4.3 (3.5-4.5) mEq/L Chloride 107 (98-109) mEq/L Carbon Dioxide 21 (19-29) mEq/L BUN 24 H (7-20) mg/dL Creatinine 0.98 (0.57-1.11) mg/dL Est GFR ( Amer) > 60 (> 60) Est GFR (Non-Af Amer) 56 L (> 60) BUN/Creatinine Ratio 24 (6-26) Glucose 106 H (70-99) mg/dL Calculated Osmolality 290 (280-300) Lactic Acid (0.5-2.2) mmol/L Calcium 8.7 (8.6-10.8) mg/dL Troponin I (0-0.03) ng/mL B-Natriuretic Peptide (0-100) pg/mL 05/11/17 05/11/17 05/11/17 Range/Units 10:43 10:43 11:01 WBC (4.3-11.1) K/mcL RBC (3.82-4.97) M/mcL Hgb (11.5-15.4) g/dL Hct (35.3-44.9) % MCV (83.0-100.0) fL MCH (28.0-33.3) pg MCHC (31.6-35.5) g/dL RDW (11.5-14.5) % Plt Count (140-400) K/mcL MPV (9.4-12.4) fL Immature Gran % (0-4) % Seg Neutrophils % % Lymphocytes % % Monocytes % % Eosinophils % % Basophils % % Neutrophils # (1.6-8.9) K/mcL Lymphocytes # (0.6-4.6) K/mcL Monocytes # (0.0-1.3) K/mcL Eosinophils # (0.0-0.6) K/mcL Basophils # (0.0-0.2) K/mcL PT (9.4-12.1) Seconds INR APTT (26.0-36.0) Seconds VBG pH (7.32-7.42) pH Units VBG pCO2 (41-51) mmHg VBG pO2 (25-50) mmHg VBG HCO3 (21-27) mEq/L Sodium (136-145) mEq/L Potassium (3.5-4.5) mEq/L Chloride (98-109) mEq/L Carbon Dioxide (19-29) mEq/L BUN (7-20) mg/dL Creatinine (0.57-1.11) mg/dL Est GFR ( Amer) (> 60) Est GFR (Non-Af Amer) (> 60) BUN/Creatinine Ratio (6-26) Glucose (70-99) mg/dL Calculated Osmolality (280-300) Lactic Acid 2.9 H (0.5-2.2) mmol/L Calcium (8.6-10.8) mg/dL Troponin I 0.03 (0-0.03) ng/mL B-Natriuretic Peptide 1427 H (0-100) pg/mL 05/11/17 Range/Units 11:24 WBC (4.3-11.1) K/mcL RBC (3.82-4.97) M/mcL Hgb (11.5-15.4) g/dL Hct (35.3-44.9) % MCV (83.0-100.0) fL MCH (28.0-33.3) pg MCHC (31.6-35.5) g/dL RDW (11.5-14.5) % Plt Count (140-400) K/mcL MPV (9.4-12.4) fL Immature Gran % (0-4) % Seg Neutrophils % % Lymphocytes % % Monocytes % % Eosinophils % % Basophils % % Neutrophils # (1.6-8.9) K/mcL Lymphocytes # (0.6-4.6) K/mcL Monocytes # (0.0-1.3) K/mcL Eosinophils # (0.0-0.6) K/mcL Basophils # (0.0-0.2) K/mcL PT (9.4-12.1) Seconds INR APTT (26.0-36.0) Seconds VBG pH 7.38 (7.32-7.42) pH Units VBG pCO2 38 L (41-51) mmHg VBG pO2 101 H (25-50) mmHg VBG HCO3 22 (21-27) mEq/L Sodium (136-145) mEq/L Potassium (3.5-4.5) mEq/L Chloride (98-109) mEq/L Carbon Dioxide (19-29) mEq/L BUN (7-20) mg/dL Creatinine (0.57-1.11) mg/dL Est GFR ( Amer) (> 60) Est GFR (Non-Af Amer) (> 60) BUN/Creatinine Ratio (6-26) Glucose (70-99) mg/dL Calculated Osmolality (280-300) Lactic Acid (0.5-2.2) mmol/L Calcium (8.6-10.8) mg/dL Troponin I (0-0.03) ng/mL B-Natriuretic Peptide (0-100) pg/mL - Radiology Data Radiology results reviewed: Yes I reviewed the patient's radiology results. - EKG Data EKG attestation: Yes I reviewed and interpreted this EKG. EKG results narrative: sinus tachycardia wiht rate of 106. NO STEMI. normal intervals. changed from 1616 (afib rvr with rate of 186). 1026
[2017-05-11] MEDS ORDERED: Levalbuterol Neb 1.25 MG/3 ML IH ONE ×2 (11:02)
[2017-05-11 11:09] LABS: INR 1.5; Prothrombin Time 16.6 Seconds (9.4-12.1)
[2017-05-11 11:12] LABS: Activated Partial Thrombo Time 29.4 Seconds (26.0-36.0); BUN/Creatinine Ratio 24 (6-26); Blood Urea Nitrogen 24 mg/dL (7-20); Calcium 8.7 mg/dL (8.6-10.8); Carbon Dioxide 21 mEq/L (19-29); Chloride 107 mEq/L (98-109); Glucose 106 mg/dL (70-99); Osmolality,Calculated 290 (280-300); Potassium 4.3 mEq/L (3.5-4.5); Sodium 138 mEq/L (136-145); eGFR For African Americans > 60 (> 60); eGFR For Non-African Americans 56 (> 60)
[2017-05-11] MEDS ORDERED: Levofloxacin 750 MG/150 ML 750 MG/150 ML BAG IVPB ONE (11:21)
[2017-05-11 11:29] LABS: VBG HCO3 22 mEq/L (21-27); VBG PCO2 38 mmHg (41-51); VBG PH 7.38 pH Units (7.32-7.42); VBG PO2 101 mmHg (25-50)
[2017-05-11] MEDS ORDERED: Levalbuterol Neb 1.25 MG/3 ML IH STA (11:33)
--- NOTE | 2017-05-11 14:19 | Pulmonology Consult Note ---
Date of Encounter: 05/11/17 Time of Encounter: 13:30 Assessment and Plan (1) Pleural effusion on left Current Visit: Yes Status: Acute Patient has new onset pleural effusion , left sided thoracentesis was done with 550 ml sero- sanguineous more likely due to infectious vs malignancy low likelihood of heart failure . (2) Acute respiratory failure with hypoxia Current Visit: Yes Status: Acute Probably due to worsening Pleural effusion with the background of COPD exacerbation. (3) COPD with exacerbation Current Visit: Yes Status: Acute To treat with bronchodilators and steroids . (4) Congestive heart failure Current Visit: No Status: Chronic Will gently diurese her Qualifiers: Congestive heart failure type: combined Congestive heart failure chronicity : acute Qualified Code(s): I50.41 - Acute combined systolic (congestive) and diastolic (congestive) heart failure (5) Pneumonia Current Visit: Yes Status: Acute CT changes can be due to pneumonia concerning for recurrence of malignancy will continue broad spectrum antibiotics will pleural fluid cytology results . To continue broad spectrum antibiotics. Qualifiers: Laterality: left Lung location: lower lobe of lung Qualified Code(s): J15.6 - Pneumonia due to other Gram-negative bacteria (6) Pneumonia Current Visit: Yes Status: Acute Qualifiers: Qualified Code(s): J18.1 - Lobar pneumonia, unspecified organism History of Present Illness Consult date: 05/11/17 Requesting physician: nIgrid Azar Reason for consult: dyspnea, abnormal CXR/CT Chief complaint: Shortness of breadth worsening History of present illness: 71 year old female with past medical history significant for COPD , NSCLC had a Right Pneumonectomy followed by oncology was recently treated for COPD exacerbation , was getting better on antibiotics and steroids. Suddenly over few she developed this shortness of breadth , with some cough denies any sputum production or hemoptysis , patient denies any fever or chills ,denies any other constitutional symptoms. Pulmonary was consulted for New left lower lobe pulmonary nodule and new onset left sided pleural effusion . Past Med Surg Social Fam HX - Past Medical History Medical history: atrial fibrillation, cancer, COPD, GERD, myocardial infarction Psychiatric history: anxiety, depression - Past Surgical History Surgical History: angioplasty/stent, cancer surgery, cholecystectomy - Social History Smoking Status: Former smoker Smokeless Tobacco Status: No Alcohol use: none Drug use: none - Family History Mother Hx Family Cardiac Disorders: Yes Father Hx Family Cardiac Disorders: Yes Medications and Allergies Albuterol Neb [Proventil Neb] 2.5 mg IH Q4HR 05/21/15 [History] Aspirin [Adult Low Dose Aspirin EC] 81 mg PO DAILY 05/21/15 [History] Calcium Carbonate [Tums] 500 mg PO DAILY 05/21/15 [History] Docusate [Colace] 100 mg PO BID 05/21/15 [History] Sertraline [Zoloft] 25 mg PO DAILY 10/03/16 [History] Tiotropium [Spiriva] 18 mcg IH DAILY 10/03/16 [History] Metoprolol XL (24 HR) Succ [Toprol XL] 25 mg PO DAILY 10/28/16 [History] Oxygen 1 each .ROUTE AD 10/28/16 [History] Clopidogrel [Plavix] 75 mg PO DAILY #30 tablet 01/13/17 [Rx] HYDROcodone/Acet 5/325 mg [[place] 5-325 mg] 1 tab PO TID #90 tab 02/09/17 [Rx] Ranitidine HCl [Zantac] 150 mg PO BID #180 tablet 02/10/17 [Rx] Erlotinib HCl [Tarceva] 100 mg PO DAILY 30 Days tablet 02/26/17 [Rx] Atorvastatin [Lipitor] 40 mg PO DAILY 03/19/17 [History] Tizanidine HCl [Zanaflex] 4 mg PO BID 03/19/17 [History] Gabapentin [Neurontin] 2 tab PO BID #120 capsule 04/14/17 [Rx] Furosemide [Lasix] 40 mg PO DAILY #90 tablet 04/19/17 [Rx] Folic Acid 1 mg PO DAILY #90 tablet 05/06/17 [Rx] Pantoprazole Sodium [Protonix] 40 mg PO DAILY 05/11/17 [History] 3 Allergy/AdvReac Type Severity Reaction Status Date / Time No Known Allergies Allergy Verified 03/19/17 09:01 All Systems: A 10-system review of systems was performed and is negative for pertinent findings except as documented above in the HPI. Physical Examination Vital Signs: Vital Signs, Last 4 Hours Pulse Resp BP Pulse Ox 05/11/17 14:11 94 20 102/76 89 General appearance: other (Mild respiratory distress) Auscultation: bilateral: diminished breath sounds (left side in the basilar region) Cardiovascular: irregular rhythm Results - Laboratory Findings CBC and BMP: 10/31/17 10:43 05/11/17 10:43 PT/INR, D-dimer PT 16.6 Seconds (9.4-12.1) H 05/11/17 10:43 Abnormal lab findings: Abnormal lab results Hgb 9.7 g/dL (11.5-15.4) L 05/11/17 10:43 Hct 32.7 % (35.3-44.9) L 05/11/17 10:43 MCV 76.8 fL (83.0-100.0) L 05/11/17 10:43 MCH 22.8 pg (28.0-33.3) L 05/11/17 10:43 MCHC 29.7 g/dL (31.6-35.5) L 05/11/17 10:43 RDW 18.8 % (11.5-14.5) H 05/11/17 10:43 PT 16.6 Seconds (9.4-12.1) H 05/11/17 10:43 VBG pCO2 38 mmHg (41-51) L 05/11/17 11:24 VBG pO2 101 mmHg (25-50) H 05/11/17 11:24 BUN 24 mg/dL (7-20) H 05/11/17 10:43 Est GFR (Non-Af Amer) 56 (> 60) L 05/11/17 10:43 Glucose 106 mg/dL (70-99) H 05/11/17 10:43 Lactic Acid 2.9 mmol/L (0.5-2.2) H 05/11/17 11:01 B-Natriuretic Peptide 1427 pg/mL (0-100) H 05/11/17 10:43 Consult Discharge Plan - Plan Referrals: Senait Wong, APPLICATIONS SALES REPRESENTATIVE [Primary Care Provider] -
--- NOTE | 2017-05-11 14:35 | Internal Med History&Physical ---
Date of Encounter: 05/12/17 Time of Encounter: 19:00 Assessment and Plan (1) Acute respiratory failure with hypoxia Current visit: Yes Status: Acute With possible aspiration pneumonia with start patient empirically on Zosyn in addition to vancomycin to cover healthcare shake pneumonia and aspiration pneumonia. aerosol treatment every 4 hour. Add Mucinex. Close monitoring on patient condition (2) Atrial fibrillation Current visit: Yes Status: Acute Continue Cardizem and BB , aspirin Qualifiers: Atrial fibrillation type: paroxysmal Qualified Code(s): I48.0 - Paroxysmal atrial fibrillation (3) Bacterial lobar pneumonia Current visit: Yes Status: Acute (4) COPD with exacerbation Current visit: Yes Status: Acute (5) Pleural effusion Current visit: Yes Status: Acute Recheck chest x-ray next morning (6) Dysphagia Current visit: Yes Status: Acute swallow evaluation Qualifiers: Qualified Code(s): R13.10 - Dysphagia, unspecified (7) Anemia Current visit: No Status: Chronic Need Iron infusion and Aranesp Qualifiers: Anemia type: iron deficiency Iron deficiency anemia type: other iron deficiency Qualified Code(s): D50.8 - Other iron deficiency anemias Internal Medicine - H&P: HPI Chief complaint: Sob, Diffuclty swallowing Admitted From: Emergency Dept Plans for Post Hospital Care: Transfer Senior Living Facility History of present illness: Ms. Wong is a 71 year old female with past medical history of lung cancer, COPD and coronary artery disease. Family stated patient had some trouble with swallowing occasionally. Patient shock when certain kind of food. Over last 2 weeks. Patient has progressive shortness of breath and dry cough. Patient denies any fever or chills. Patient denies any chest pain .Patient is complaining of dyspnea on mild exertion. Patient denies any motor or sensory changes. Patient denies any visual changes Past Med Surg Social Fam HX - Past Medical History Medical history: atrial fibrillation, cancer, COPD, GERD, myocardial infarction Psychiatric history: anxiety, depression - Past Surgical History Surgical History: angioplasty/stent, cancer surgery, cholecystectomy - Social History Smoking Status: Former smoker Smokeless Tobacco Status: No Alcohol use: none Drug use: none - Family History Mother Hx Family Cardiac Disorders: Yes Father Hx Family Cardiac Disorders: Yes Internal Medicine - H&P: Meds Albuterol Neb [Proventil Neb] 2.5 mg IH Q4HR 05/21/15 [History] Aspirin [Adult Low Dose Aspirin EC] 81 mg PO DAILY 05/21/15 [History] Calcium Carbonate [Tums] 500 mg PO DAILY 05/21/15 [History] Docusate [Colace] 100 mg PO BID 05/21/15 [History] Sertraline [Zoloft] 25 mg PO DAILY 10/03/16 [History] Tiotropium [Spiriva] 18 mcg IH DAILY 10/03/16 [History] Metoprolol XL (24 HR) Succ [Toprol XL] 25 mg PO DAILY 10/28/16 [History] Oxygen 1 each .ROUTE AD 10/28/16 [History] Clopidogrel [Plavix] 75 mg PO DAILY #30 tablet 01/13/17 [Rx] HYDROcodone/Acet 5/325 mg [[place] 5-325 mg] 1 tab PO TID #90 tab 02/09/17 [Rx] Ranitidine HCl [Zantac] 150 mg PO BID #180 tablet 02/10/17 [Rx] Erlotinib HCl [Tarceva] 100 mg PO DAILY 30 Days tablet 02/26/17 [Rx] Atorvastatin [Lipitor] 40 mg PO DAILY 03/19/17 [History] Tizanidine HCl [Zanaflex] 4 mg PO BID 03/19/17 [History] Gabapentin [Neurontin] 2 tab PO BID #120 capsule 04/14/17 [Rx] Furosemide [Lasix] 40 mg PO DAILY #90 tablet 04/19/17 [Rx] Folic Acid 1 mg PO DAILY #90 tablet 05/06/17 [Rx] Pantoprazole Sodium [Protonix] 40 mg PO DAILY 05/11/17 [History] 3 Allergy/AdvReac Type Severity Reaction Status Date / Time No Known Allergies Allergy Verified 03/19/17 09:01 All Systems PM: A 10-system review of systems was performed and is negative for pertinent findings except as documented above in the HPI. - Constitutional Vitals: Temp Pulse Resp BP Pulse Ox 97.4 F L 94 20 102/76 89 05/11/17 10:07 05/11/17 14:11 05/11/17 14:11 05/11/17 14:11 05/11/17 14:11 - Head Head exam: Present: atraumatic, normocephalic - Neck Neck exam general surgery: Present: supple, trachea midline. Absent: lymphadenopathy - Respiratory Respiratory exam: Present: decreased breath sounds (Decreased breathing sounds bilaterally especially bilateral lung bases with scattered crackles), prolonged expiratory phase, rales. Absent: accessory muscle use, rhonchi, wheezes - Cardiovascular Cardiovascular exam: Present: +S1, +S2. Absent: gallop, rubs, systolic murmur - GI/Abdominal GI/Abdominal exam: Present: normal bowel sounds, soft, no peritoneal signs. Absent: distended, tenderness - Extremities Exam Extremities exam: Present: warm, radial pulses palpable and symmetrical. Absent : calf tenderness, cyanotic, pedal edema Internal Med - H&P Results - Labs CBC & Chem 7: 05/12/17 16:48 05/12/17 16:48
[2017-05-11 14:54] LABS: Alanine Aminotransferase 59 Units/L (0-55); Albumin/Globulin Ratio 0.8 (1.1-2.2); Alkaline Phosphatase 99 Units/L (38-126); Aspartate Amino Transferase 77 Units/L (5-34); Bilirubin,Direct 0.7 mg/dL (0.0-0.5); Bilirubin,Indirect 0.6 mg/dL (0.0-1.2); Bilirubin,Total 1.3 mg/dL (0.2-1.2); Globulin 3.6 g/dL (2.4-3.5); Total Protein 6.6 g/dL (6.0-8.3)
[2017-05-11 14:59] LABS: Lactate Dehydrogenase 374 Units/L (159-327)
[2017-05-11] MEDS ORDERED: Vancomycin 750 MG in D5% in Water 250 ML IVPB SCH (15:00)
--- NOTE | 2017-05-11 15:04 | IR Procedure Note ---
Date of procedure: 05/11/17 Consent Obtained: Verbal consent, Written consent Timeout: Correct patient and procedure verified, Correct site verified, Time out performed, Skin prep completed Local anesthetic: Lidocaine 1% Indications: effusion Procedure Performed: L thoracentesis Site/Technique: left Results/Findings: serous fluid, amount pending Estimated blood loss (cc): 1 Complications: None; Tolerated procedure well Post Procedure Treatment Plan: CXR
[2017-05-11] MEDS ORDERED: Vancomycin 500 MG in D5% in Water (Mini-Bag+) 100 ML IVPB SCH (15:08)
[2017-05-11] MEDS: Ipratropium/Albuterol Neb 3 ML IH SCH ×3 (15:24→23:54)
[2017-05-11] MEDS: methylPREDNISolone 125 MG/2 ML VIAL IVP SCH (16:47)
[2017-05-11] MEDS: Piperacillin/Tazobactam 3.375 GM in D5% in Water (Mini-Bag+) 100 ML IVPB SCH (17:35)
[2017-05-11 17:50] LABS: Total Protein,Pleural Fluid 1.1 g/dL (No Ref Range)
[2017-05-11 18:11] LABS: Appearance of Body Fluid Clear (Clear); Volume of Body Fluid 550 mL
[2017-05-11] MEDS: Furosemide 40 MG/4 ML VIAL IVP SCH (19:00)
[2017-05-11] MEDS ORDERED: 0.9 % Sodium Chloride 500 ML ONE (21:01)
[2017-05-12] MEDS: methylPREDNISolone 125 MG/2 ML VIAL IVP SCH ×2 (00:14→08:36)
[2017-05-12] MEDS: Piperacillin/Tazobactam 3.375 GM in D5% in Water (Mini-Bag+) 100 ML IVPB SCH ×4 (00:23→18:27)
[2017-05-12] MEDS: Ipratropium/Albuterol Neb 3 ML IH SCH ×6 (04:28→23:34)
[2017-05-12] MEDS ORDERED: 0.9 % Sodium Chloride 500 ML IVC ONE (05:39)
[2017-05-12] MEDS: Furosemide 40 MG/4 ML VIAL IVP SCH (08:37)
--- NOTE | 2017-05-12 08:49 | Internal Med Progress Note ---
<Osiel Murillo - Last Filed: 05/12/17 11:47> Date of Encounter: 05/12/17 Time of Encounter: 09:26 - Assessment and plan (1) Acute respiratory failure with hypoxia Current Visit: Yes Status: Acute Assessment and plan: Stable and improving; saturating above 96 on 2 L of oxygen by nasal cannula Normally on 3 L nasal cannula at home has been receiving schedule duonebs as well as Mucinex (2) Bacterial lobar pneumonia Current Visit: Yes Status: Acute Assessment and plan: oxygenation improving subjectively and on monitor currently receiving IV vanco/zosyn/levaquin will recheck white count today and in a.m. (3) Congestive heart failure Current Visit: Yes Status: Chronic Assessment and plan: -Stable and symptomatically improving -initial BUN 1427 -echo done in October demonstrates normal ejection fraction with some diastolic dysfunction -will order repeat echo today -currently being gently diuresed with IV Lasix and is on fluid restriction -on cardiac diet Qualifiers: Congestive heart failure type: combined Congestive heart failure chronicity : acute Qualified Code(s): I50.41 - Acute combined systolic (congestive) and diastolic (congestive) heart failure (4) Pleural effusion on left Current Visit: Yes Status: Acute Assessment and plan: -thoracentesis performed by IR under ultrasound guidance -on initial fluid evaluation, quality appears to be transiently dative -acute respiratory decompensation thought to be largely related to stated pleural effusion -shortness of air has significantly improved after thoracentesis (5) History of malignant neoplasm metastatic to lung Current Visit: Yes Status: Acute Assessment and plan: -new left lung pulmonary nodule elucidated on CT -spoke with Dr. Eldridge (oncology) regarding above-stated findings as well as acute pleural effusion -per discussion/recommendation, will likely have patient follow-up closely on outpatient basis with oncology clinic -her primary oncologist is Dr. Valadez (6) Pulmonary nodule Current Visit: Yes Status: Acute Assessment and plan: -as above, will have patient follow with [facility] for further evaluation of present nodule -stated nodule may represent recurrence of patient's history of pulmonary neoplasm (7) Atrial fibrillation Current Visit: Yes Status: Acute Assessment and plan: -Paroxysmal and active with RVR -patient on Cardizem drip as well as PO metoprolol succinate 25 mg -will continue to monitor patient and consider enhancing rate control depending on therapeutic effect with reinstatement of normal PO metoprolol -consider increasing metoprolol or adding Cardizem to patient's normal routine -also, patient does have enhanced CVA risk based on Rocael's best 2 criteria; will speak with cardiology and consider de-escalating antiplatelet therapy and adding anticoagulant. Patient is currently on aspirin and Plavix Qualifiers: Atrial fibrillation type: paroxysmal Qualified Code(s): I48.0 - Paroxysmal atrial fibrillation (8) COPD with exacerbation Current Visit: Yes Status: Acute Assessment and plan: -stable & improving -has had recent worsening cough and sputum production -cont antibiotics, duonebs, and steroids (9) DVT prophylaxis Current Visit: Yes Status: Acute Assessment and plan: sub Q lovenox - Time Spent With Patient 25 - 35 minutes - Subjective Interval history: Initially admitted for shortness of air which had been progressively worsening, but significantly relieved with thoracentesis of large left pleural effusion. Pleural fluid culture pending, however, initial studies are suggestive of transudative process. Overnight events include persistent tachycardia within context of active paroxysmal atrial fibrillation. Subjectively, patient feels symptomatically improved citing decreased severity of shortness of air. Denies any other acute symptoms or complaints at this time. - Constitutional Vitals: Temp Pulse Resp BP Pulse Ox 97.6 F 110 18 90/63 99 05/12/17 03:19 05/12/17 03:19 05/12/17 03:19 05/12/17 03:19 05/12/17 03:19 General appearance: Present: A&O X 3, pleasant, no acute distress, answers questions appropriately - Head Head exam: Present: atraumatic, normocephalic - Eye Eye exam: Present: PERRL, conjuntiva pink, sclera anicteric. Absent: conjunctival injection, scleral icterus - Neck Neck exam general surgery: Present: supple, trachea midline - Respiratory Respiratory exam: Present: decreased breath sounds (right oshea; s/p lobectomy) , CTAB. Absent: accessory muscle use, prolonged expiratory phase, rales, respiratory distress, rhonchi, stridor, wheezes, tachypnea - Cardiovascular Cardiovascular exam: Present: irregular rhythm, +S1, +S2, tachycardia. Absent: diastolic murmur, gallop, rubs, +S3, +S4, systolic murmur - GI/Abdominal GI/Abdominal exam: Present: soft. Absent: distended, firm, guarding, rigid, tenderness - Extremities Exam Extremities exam: Present: pedal edema (trace), warm, radial pulses palpable and symmetrical. Absent: calf tenderness, cyanotic, mottling - Neurological Exam Neurological exam: Present: no focal deficits. Absent: facial droop, speech deficit - Skin Skin exam: Present: dry, intact, normal color. Absent: cyanosis, diaphoretic, mottled, pallor Internal Medicine: Result - Labs CBC & Chem 7: 05/11/17 10:43 05/11/17 10:43 - ABG Interpretation ABG results: PT/INR, D-dimer PT 16.6 Seconds (9.4-12.1) H 05/11/17 10:43 - Impressions Impressions Chest X-Ray 05/11/17 14:58 IMPRESSION: Status post left thoracentesis with some residual fluid in the left pleural space. No pneumothorax is seen. Status post remote partial right pneumonectomy. D/ / 05/11/2017 15:44:03 Aydin Miller MD / Maryc Holder Interpreting Provider: Aydin Miller MD - VTE Documentation of Mechanical Device: Intermittent pneumatic compression device Consult Discharge Plan - Plan Referrals: Senait Wong, [facility] [Primary Care Provider] - (SENT WEB REQUEST ON 05-12-17 @ [id number]) <MarthaChristian - Last Filed: 05/12/17 16:26> Date of Encounter: 05/12/17 - Constitutional Vitals: Temp Pulse Resp BP Pulse Ox 97.6 F 106 12 94/70 98 05/12/17 15:42 05/12/17 15:42 05/12/17 15:42 05/12/17 15:42 05/12/17 15:42 Internal Medicine: Result - Labs CBC & Chem 7: 05/12/17 11:41 05/12/17 11:41 Labs: Short CBC 05/12/17 Range/Units 11:41 WBC 6.5 (4.3-11.1) K/mcL Hgb 8.8 L (11.5-15.4) g/dL Hct 28.7 L (35.3-44.9) % Plt Count 189 (140-400) K/mcL Neutrophils # 5.9 (1.6-8.9) K/mcL BMP 05/12/17 11:41 Sodium 138 Potassium 3.0 L D Chloride 103 Carbon Dioxide 23 BUN 19 Creatinine 0.99 Glucose 125 H Calcium 7.6 L Liver Function 05/12/17 Range/Units 11:41 Total Bilirubin 0.8 (0.2-1.2) mg/dL AST 74 H (5-34) Units/L ALT 70 H (0-55) Units/L Alkaline Phosphatase 85 (38-126) Units/L Albumin 2.7 L (3.5-5.0) g/dL - ABG Interpretation ABG results: PT/INR, D-dimer PT 16.6 Seconds (9.4-12.1) H 05/11/17 10:43 - Attending Attestation I examined this patient and my medical decision-making was reviewed with the Resident Physician. I agree with the documented findings, disposition and treatment plan as described except to the extent set forth below. This is a 71 y/o F with known PMH of Chronic A fib, NSCLC had Rt pneumonectomy followed by oncology admitted here with severe SOB due to Large Left pleural effusion. Pt also happened to be in A fib with RVR. Pt stated her symptoms improved. Denied any CP. SOB also better today Chest: Diminished BS b/l, mild wheezing, No crackles No rales Heart; S1 S2 + Irregular rate and Rythm a/p 1. Acute Left pleural effusion 2. Acute on chronic hypoxic resp failure 3. Acute diastolic CHF exacerbation 4. Acute possible bacterial Pneumonia 5. Acuter COPD exacerbation s/p thoracocentesis improving.. cont IV lasix 2 D Echo ordered Cont duoneb and O2 Does not seem to be in severe COPD exacerbation.. switch to PO steroids 6. Acute A fib with RVR cont home med Metoprolol + Cardizem gtt will try to wean her off the Cardizem gtt anti coagulation rangel not a good candidate as per card due to ho mets in brain with s/p gamma knife procedure
[2017-05-12] MEDS ORDERED: Aminoglycoside Consult 1 EACH MC ONE (09:38)
[2017-05-12] MEDS ORDERED: *HR* HYDROcodone/Acet 5/325 mg TABLET PO PRN (09:44)
[2017-05-12] MEDS ORDERED: methylPREDNISolone 125 MG/2 ML VIAL IVP SCH (09:49)
[2017-05-12] MEDS: Aspirin Enteric Coated 81 MG Tablet PO SCH (11:00)
[2017-05-12] MEDS: Metoprolol XL (24 HR) Succ 25 MG TAB.ER.24H PO SCH (11:00)
[2017-05-12 11:51] LABS: Hematocrit 28.7 % (35.3-44.9); Hemoglobin 8.8 g/dL (11.5-15.4); Immature Granulocytes % 0.2 % (0-4); Lymphocytes # 0.4 K/mcL (0.6-4.6); Lymphocytes % 5.7 %; Mean Corpuscular HGB Conc 30.7 g/dL (31.6-35.5); Mean Corpuscular Hemoglobin 22.6 pg (28.0-33.3); Mean Corpuscular Volume 73.8 fL (83.0-100.0); Mean Platelet Volume 9.8 fL (9.4-12.4); Monocytes # 0.3 K/mcL (0.0-1.3); Monocytes % 4.2 %; Neutrophils # 5.9 K/mcL (1.6-8.9); Platelet Count 189 K/mcL (140-400); Red Blood Count 3.89 M/mcL (3.82-4.97); Red Cell Distribution Width 18.6 % (11.5-14.5); Segmented Neutrophils % 89.9 %
[2017-05-12 12:07] LABS: Alanine Aminotransferase 70 Units/L (0-55); Albumin/Globulin Ratio 0.9 (1.1-2.2); Alkaline Phosphatase 85 Units/L (38-126); Aspartate Amino Transferase 74 Units/L (5-34); BUN/Creatinine Ratio 19 (6-26); Bilirubin,Total 0.8 mg/dL (0.2-1.2); Blood Urea Nitrogen 19 mg/dL (7-20); Calcium 7.6 mg/dL (8.6-10.8); Carbon Dioxide 23 mEq/L (19-29); Chloride 103 mEq/L (98-109); Globulin 3.1 g/dL (2.4-3.5); Glucose 125 mg/dL (70-99); Osmolality,Calculated 290 (280-300); Sodium 138 mEq/L (136-145); eGFR For African Americans > 60 (> 60); eGFR For Non-African Americans 56 (> 60)
[2017-05-12 12:08] LABS: Albumin 2.7 g/dL (3.5-5.0); Total Protein 5.8 g/dL (6.0-8.3)
--- NOTE | 2017-05-12 13:53 | Pulmonology Progress Note ---
Date of Encounter: 05/12/17 Time of Encounter: 10:00 Assessment and Plan (1) Pleural effusion on left Current Visit: Yes Status: Acute Fluid looks transduate with color was serosangunieous with predominant type of cell is lymhocytic waiting for cytology low suspicion for infection , most likely the pleural effusion worsening heart failure complicated by possible pneumonia (2) Acute respiratory failure with hypoxia Current Visit: Yes Status: Acute Worsening pleural effusion complicated by pneumonia and COPD exacerbation (3) COPD with exacerbation Current Visit: Yes Status: Acute To continue bronchodilators and steroids (4) Congestive heart failure Current Visit: Yes Status: Chronic To continue diuresis Qualifiers: Congestive heart failure type: combined Congestive heart failure chronicity : acute Qualified Code(s): I50.41 - Acute combined systolic (congestive) and diastolic (congestive) heart failure (5) Pneumonia Current Visit: Yes Status: Acute Cotinue broad spectrum antibiotics will start to deescalate antibiotics from tomorrow. Qualifiers: Pneumonia type: due to unspecified organism Laterality: left Lung location: lower lobe of lung Qualified Code(s): J18.1 - Lobar pneumonia, unspecified organism Subjective Principal diagnosis: Left Pleual Effusion Interval history: Patient is doing lot better she says she is almost back to baseline after left sided thoracentesis Objective PUL Vital signs: Last Vital Signs Temp 97.7 F 05/12/17 08:49 Pulse 112 05/12/17 11:11 Resp 14 05/12/17 08:49 BP 115/76 05/12/17 08:49 Pulse Ox 98 05/12/17 08:49 Auscultation: bilateral: diminished breath sounds (left base reduced , Right side pneumonectomy ) Results - Laboratory Findings CBC and BMP: 05/12/17 16:48 05/12/17 16:48 PT/INR, D-dimer PT 16.6 Seconds (9.4-12.1) H 05/11/17 10:43 Abnormal lab findings: Abnormal lab results Hgb 8.8 g/dL (11.5-15.4) L 05/12/17 11:41 Hct 28.7 % (35.3-44.9) L 05/12/17 11:41 MCV 73.8 fL (83.0-100.0) L 05/12/17 11:41 MCH 22.6 pg (28.0-33.3) L 05/12/17 11:41 MCHC 30.7 g/dL (31.6-35.5) L 05/12/17 11:41 RDW 18.6 % (11.5-14.5) H 05/12/17 11:41 Lymphocytes # 0.4 K/mcL (0.6-4.6) L 05/12/17 11:41 PT 16.6 Seconds (9.4-12.1) H 05/11/17 10:43 VBG pCO2 38 mmHg (41-51) L 05/11/17 11:24 VBG pO2 101 mmHg (25-50) H 05/11/17 11:24 Potassium 3.0 mEq/L (3.5-4.5) L D 05/12/17 11:41 Est GFR (Non-Af Amer) 56 (> 60) L 05/12/17 11:41 Glucose 125 mg/dL (70-99) H 05/12/17 11:41 Lactic Acid 4.0 mmol/L (0.5-2.2) H* 05/12/17 11:41 Calcium 7.6 mg/dL (8.6-10.8) L 05/12/17 11:41 Direct Bilirubin 0.7 mg/dL (0.0-0.5) H 05/11/17 10:43 AST 74 Units/L (5-34) H 05/12/17 11:41 ALT 70 Units/L (0-55) H 05/12/17 11:41 Lactate Dehydrogenase 374 Units/L (159-327) H 05/11/17 10:43 B-Natriuretic Peptide 1427 pg/mL (0-100) H 05/11/17 10:43 Serum Total Protein 5.8 g/dL (6.0-8.3) L 05/12/17 11:41 Albumin 2.7 g/dL (3.5-5.0) L 05/12/17 11:41 Albumin/Globulin Ratio 0.9 (1.1-2.2) L 05/12/17 11:41 - Microbiology Findings Microbiology Findings: Microbiology, Last 48 Hours 05/11/17 14:45 Body Fluid Culture - Preliminary Pleural Fluid - Clinical Findings Intake & Output: Intake & Output 05/11/17 05/12/17 05/12/17 23:59 07:59 15:59 Intake Total 480 / 480 815 / 815 185 / 185 Output Total 650 / 650 1200 / 1200 Balance 480 / 480 165 / 165 -1015 / -1015 - VTE Documentation of Mechanical Device: Intermittent pneumatic compression device Consult Discharge Plan - Plan Referrals: Senait Wong, COMMUNICATION SPEC [Primary Care Provider] - (SENT WEB REQUEST ON 05-12-17 @ [id number])
[2017-05-12] MEDS: Folic Acid 1 MG TABLET PO SCH (15:01)
[2017-05-12] MEDS ORDERED: Vancomycin 500 MG in D5% in Water (Mini-Bag+) 100 ML IVPB SCH (16:45)
[2017-05-12] MEDS ORDERED: 0.9 % Sodium Chloride 500 ML ONE (17:04)
[2017-05-12 17:12] LABS: Hematocrit 27.6 % (35.3-44.9); Hemoglobin 8.6 g/dL (11.5-15.4)
[2017-05-12 17:16] LABS: BUN/Creatinine Ratio 21 (6-26); Blood Urea Nitrogen 21 mg/dL (7-20); Calcium 7.6 mg/dL (8.6-10.8); Carbon Dioxide 21 mEq/L (19-29); Chloride 104 mEq/L (98-109); Glucose 126 mg/dL (70-99); Osmolality,Calculated 289 (280-300); Potassium 3.4 mEq/L (3.5-4.5); Sodium 137 mEq/L (136-145); eGFR For African Americans > 60 (> 60); eGFR For Non-African Americans 55 (> 60)
--- NOTE | 2017-05-12 17:28 | Electrocardiograph Report ---
[facility] [employer] Test Date: 2017-05-11 Pat Name: Clara Wong Department: 103 Room: 2N03 Gender: F News Content Specialist: MSC : 1945 Requested By: Ingrid Azar Order Number: [id number] Reading MD: Jostin Moore MD Measurements Intervals [place] Rate: 106 P: 41 [place]: 130 QRS: 4 QRSD: 77 T: 70 QT: 338 QTc: 400 Interpretive Statements SINUS TACHYCARDIA WITH OCCASIONAL VENTRICULAR PREMATURE COMPLEXES LOW QRS VOLTAGE IN PRECORDIAL LEADS [QRS DEFLECTION < 1.0 mV IN CHEST LEADS] ABNORMAL RHYTHM ECG Electronically Signed On 05-12-2017 17:26:23 EDT by Jostin Moore MD
--- NOTE | 2017-05-12 17:31 | Electrocardiograph Report ---
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
[2017-05-12] MEDS ORDERED: tiZANidine 4 MG TABLET PO SCH (21:00)
--- NOTE | 2017-05-12 21:22 | Oncology Inp Consult Note ---
Date of Encounter: 05/12/17 Time of Encounter: 18:00 Assessment and Plan (1) Non-small cell lung cancer Status: Chronic Assessment and plan: Metastatic right lung cancer with recurrent left transudative pleural effusion. She is s/p thoracentesis and feels much better. It is unclear if this represents disease progression given the nature of the effusion. We will await cytology. No need for acute change in oncologic therapy. Findings were d/w patient today. Qualifiers: Laterality: left Qualified Code(s): C34.92 - Malignant neoplasm of unspecified part of left bronchus or lung (2) Pleural effusion Status: Acute Assessment and plan: Transudative process in the setting of new afib. Will await cytology results. Appreciate hospitalist and pulmonary input. - Data of Consult Requesting Physician: Doron Loaiza DO Primary Care Provider: Senait Wong CNP - Consult Narrative Reason for consult: Lung cancer admitted with effusion History of present illness: Ms. Wong is a 71 year old female with a remote history of ALL diagnosed in 1986 who is being treated for metastatic right lung non-small cell lung cancer initially diagnosed in 2004. She developed recurrence in 2008 and has been on Tarceva since January 2010 with excellent control of her disease. She did have isolated brain metastasis s/p SRS 05/31/13. In September of this year she developed a left pleural effusion requiring thoracentesis. No malignancy identified. For the last two weeks, she has developed worsening SOB. She was treated with azithromycin and prednisone without relief and was subsequently hospitalized. She was found to have a large left pleural effusion. Thoracentesis was performed with a transudative process identified. Cytology is pending. She feels much better after the procedure today. She has been found to have atrial fibrillation with RVR. She has been placed on a diltiazem gtt with intermittent control. Broad spectrum antibiotics initiated. Appetite is down a bit. No pain. Past Med Surg Social Fam HX - Past Medical History Medical history: atrial fibrillation, cancer, COPD, GERD, myocardial infarction Psychiatric history: anxiety, depression - Past Surgical History Surgical History: angioplasty/stent, cancer surgery, cholecystectomy - Social History Smoking Status: Former smoker Smokeless Tobacco Status: No Alcohol use: none Drug use: none - Family History Mother Hx Family Cardiac Disorders: Yes Father Hx Family Cardiac Disorders: Yes Medications and Allergies Albuterol Neb [Proventil Neb] 2.5 mg IH Q4HR 05/21/15 [History] Aspirin [Adult Low Dose Aspirin EC] 81 mg PO DAILY 05/21/15 [History] Calcium Carbonate [Tums] 500 mg PO DAILY 05/21/15 [History] Docusate [Colace] 100 mg PO BID 05/21/15 [History] Sertraline [Zoloft] 25 mg PO DAILY 10/03/16 [History] Tiotropium [Spiriva] 18 mcg IH DAILY 10/03/16 [History] Metoprolol XL (24 HR) Succ [Toprol XL] 25 mg PO DAILY 10/28/16 [History] Oxygen 1 each .ROUTE AD 10/28/16 [History] Clopidogrel [Plavix] 75 mg PO DAILY #30 tablet 01/13/17 [Rx] HYDROcodone/Acet 5/325 mg [[place] 5-325 mg] 1 tab PO TID #90 tab 02/09/17 [Rx] Ranitidine HCl [Zantac] 150 mg PO BID #180 tablet 02/10/17 [Rx] Erlotinib HCl [Tarceva] 100 mg PO DAILY 30 Days tablet 02/26/17 [Rx] Atorvastatin [Lipitor] 40 mg PO DAILY 03/19/17 [History] Tizanidine HCl [Zanaflex] 4 mg PO BID 03/19/17 [History] Gabapentin [Neurontin] 2 tab PO BID #120 capsule 04/14/17 [Rx] Furosemide [Lasix] 40 mg PO DAILY #90 tablet 04/19/17 [Rx] Folic Acid 1 mg PO DAILY #90 tablet 05/06/17 [Rx] Pantoprazole Sodium [Protonix] 40 mg PO DAILY 05/11/17 [History] 3 Allergy/AdvReac Type Severity Reaction Status Date / Time No Known Allergies Allergy Verified 03/19/17 09:01 All systems: reviewed and no additional remarkable complaints except as stated Constitutional: Present: fatigue, malaise Eyes: Present: as per HPI Ears: Present: as per HPI Nose, mouth and throat: Present: as per HPI Cardiovascular: Present: dyspnea on exertion, palpitations, rapid heart rate Respiratory: Present: dyspnea on exertion Gastrointestinal: Present: as per HPI Musculoskeletal: Present: as per HPI Neurological: Present: as per HPI Oncology - Exam - Constitutional Vitals: Temp Pulse Resp BP Pulse Ox 97.8 F 104 18 94/65 95 05/12/17 18:59 05/12/17 18:59 05/12/17 20:08 05/12/17 18:59 05/12/17 20:08 General appearance: average body habitus, cooperative, no acute distress - Head Head exam: Present: atraumatic, normal inspection, normocephalic - Eye Eye exam: Present: normal appearance, conjuntiva pink, sclera anicteric - ENT ENT exam: Present: mucous membranes moist, normal exam, normal oropharynx - Neck Neck exam: Present: full ROM, normal inspection - Respiratory Respiratory exam: Present: decreased breath sounds Additional comments: absent on right, clear on left except for at base - Cardiovascular Cardiovascular exam: Present: irregular rhythm - GI/Abdominal GI/Abdominal exam: Present: normal bowel sounds, soft - Extremities Exam Extremities exam: Present: normal inspection - Neurological Exam Neurological exam: Present: alert, CN II-XII intact, oriented X3 Oncology - Results Labs: Short CBC 05/12/17 05/12/17 Range/Units 11:41 16:48 WBC 6.5 (4.3-11.1) K/mcL Hgb 8.8 L 8.6 L (11.5-15.4) g/dL Hct 28.7 L 27.6 L (35.3-44.9) % Plt Count 189 (140-400) K/mcL Neutrophils # 5.9 (1.6-8.9) K/mcL BMP 05/12/17 05/12/17 11:41 16:48 Sodium 138 137 Potassium 3.0 L D 3.4 L Chloride 103 104 Carbon Dioxide 23 21 BUN 19 21 H Creatinine 0.99 1.00 Glucose 125 H 126 H Calcium 7.6 L 7.6 L Liver Function 05/12/17 Range/Units 11:41 Total Bilirubin 0.8 (0.2-1.2) mg/dL AST 74 H (5-34) Units/L ALT 70 H (0-55) Units/L Alkaline Phosphatase 85 (38-126) Units/L Albumin 2.7 L (3.5-5.0) g/dL CTA OF THE CHEST 05/11/2017 12:38 pm TECHNIQUE: CTA of the chest was performed after the administration of intravenous contrast. Multiplanar reformatted images are provided for review. MIP images are provided for review. Dose modulation, iterative reconstruction, and/or weight based adjustment of the mA/kV was utilized to reduce the radiation dose to as low as reasonably achievable. COMPARISON: 06/18/2013 HISTORY: ORDERING SYSTEM PROVIDED HISTORY: r/o PE Additional tech notes: 6, no i.v. or labs .9, 56 70 ml of isovue FINDINGS: Pulmonary Arteries: There is some distortion from patient breathing motion. Within this limitation, no pulmonary artery filling defects are demonstrated Mediastinum: The heart and mediastinum are shifted to the right. Thoracic aorta is normal in caliber. There is cardiomegaly. There is a small pericardial effusion. Lungs/pleura: There has been partial right pneumonectomy. Residual right lung is completely opacified. There is pleural fluid on the right that is likely at least in part secondary to partial pneumonectomy. There is a large left pleural effusion. There is some dependent airspace disease on the left. There is a new 5 mm pleural base nodule in the left lower lobe. There is a large calcified granuloma in the left lower lobe. Upper Abdomen: There is reflux of contrast into the hepatic veins and parenchyma of the left hepatic lobe. Soft Tissues/Bones: There is infiltration of the body wall subcutaneous tissues compatible with anasarca. There are fluid collections in the right axilla CT/CT angio chest IMPRESSION: 1. No evidence of pulmonary embolism 2. Status post partial right pneumonectomy with complete opacification of residual right lung which has worsened since the prior study from 2012 3. Large left pleural effusion. Dependent airspace disease may represent edema or pneumonia 4. New 5 mm nodule in the left lower lobe. In light of the patient's history of malignancy, short-term follow-up is recommended 5. Cardiomegaly with pericardial effusion. Hepatic reflux of contrast suggests elevated right heart pressure 6. Fluid collections in the right axilla possibly representing hidradenitis suppurativa Consult Discharge Plan - Plan Referrals: Senait Wong, [employer] [Primary Care Provider] - (SENT WEB REQUEST ON 05-12-17 @ [phone])
[2017-05-12] MEDS: Gabapentin 300 MG CAPSULE PO SCH (21:44)
[2017-05-12] MEDS: Famotidine 20 MG TABLET PO SCH (21:47)
[2017-05-13] MEDS: Piperacillin/Tazobactam 3.375 GM in D5% in Water (Mini-Bag+) 100 ML IVPB SCH ×3 (03:03→18:09)
[2017-05-13 03:51] LABS: Basophils % 0.1 %; Hematocrit 25.4 % (35.3-44.9); Hemoglobin 7.8 g/dL (11.5-15.4); Immature Granulocytes % 0.4 % (0-4); Lymphocytes # 0.6 K/mcL (0.6-4.6); Lymphocytes % 8.3 %; Mean Corpuscular HGB Conc 30.7 g/dL (31.6-35.5); Mean Corpuscular Hemoglobin 22.5 pg (28.0-33.3); Mean Corpuscular Volume 73.4 fL (83.0-100.0); Mean Platelet Volume 10.4 fL (9.4-12.4); Monocytes # 0.3 K/mcL (0.0-1.3); Monocytes % 3.9 %; Neutrophils # 6.1 K/mcL (1.6-8.9); Platelet Count 166 K/mcL (140-400); Red Blood Count 3.46 M/mcL (3.82-4.97); Red Cell Distribution Width 18.6 % (11.5-14.5); Segmented Neutrophils % 87.3 %
[2017-05-13 04:11] LABS: Alanine Aminotransferase 60 Units/L (0-55); Albumin 2.5 g/dL (3.5-5.0); Albumin/Globulin Ratio 0.9 (1.1-2.2); Alkaline Phosphatase 66 Units/L (38-126); Aspartate Amino Transferase 53 Units/L (5-34); BUN/Creatinine Ratio 26 (6-26); Bilirubin,Total 0.6 mg/dL (0.2-1.2); Blood Urea Nitrogen 23 mg/dL (7-20); Calcium 7.4 mg/dL (8.6-10.8); Carbon Dioxide 24 mEq/L (19-29); Chloride 105 mEq/L (98-109); Globulin 2.7 g/dL (2.4-3.5); Glucose 163 mg/dL (70-99); Osmolality,Calculated 289 (280-300); Potassium 3.7 mEq/L (3.5-4.5); Sodium 136 mEq/L (136-145); Total Protein 5.2 g/dL (6.0-8.3); eGFR For African Americans > 60 (> 60); eGFR For Non-African Americans > 60 (> 60)
[2017-05-13] MEDS: Ipratropium/Albuterol Neb 3 ML IH SCH ×6 (04:39→23:36)
[2017-05-13] MEDS: *HR* Enoxaparin 40 MG/0.4 ML SYRINGE SQ SCH (05:25)
--- NOTE | 2017-05-13 07:43 | Internal Med Progress Note ---
<Osiel Murillo - Last Filed: 05/13/17 12:54> Date of Encounter: 05/13/17 Time of Encounter: 07:43 - Assessment and plan (1) Acute respiratory failure with hypoxia Current Visit: Yes Status: Acute Assessment and plan: Stable without worsening symptoms; saturates above 96% on 1 to 2 L of O2 via nasal cannula Normally on 3 L nasal cannula at home has been receiving schedule duonebs as well as Mucinex (2) Bacterial lobar pneumonia Current Visit: Yes Status: Acute Assessment and plan: Blood cultures negative; will stop vancomycin continue Zosyn (3) Congestive heart failure Current Visit: Yes Status: Chronic Assessment and plan: -Stable without any current symptoms of volume overload -initial BUN 1427 -ECHO shows LVEF of >=60% and no definitive diastolic dysfunction -cont IV Lasix and fluid restriction; consider conversion to PO Lasix at same dose in a.m. -on cardiac diet Qualifiers: Congestive heart failure type: combined Congestive heart failure chronicity : acute Qualified Code(s): I50.41 - Acute combined systolic (congestive) and diastolic (congestive) heart failure (4) Pleural effusion on left Current Visit: Yes Status: Acute Assessment and plan: -thoracentesis performed by IR under ultrasound guidance; symptomatically improved -on initial fluid evaluation, quality appears to be transudative; culture & cytology pending -likely contributor or precipitant of acute respiratory decompensation (5) History of malignant neoplasm metastatic to lung Current Visit: Yes Status: Acute Assessment and plan: -new left lung pulmonary nodule elucidated on CT -spoke with Dr. Eldridge (oncology) regarding above-stated findings as well as acute pleural effusion -ultimately, will have patient follow-up on outpatient basis with oncology -will await any further advice from oncology as they have seen patient during present inpatient stay (6) Atrial fibrillation Current Visit: Yes Status: Acute Assessment and plan: -Paroxysmal and active with RVR; patient has returned to sinus rhythm and relapsed back into a fib with moments of tachycardia. No persistent RVR -continue daily metoprolol succinate 25 mg and add PO Cardizem; stop Cardizem drip -continue to monitor patient -also, patient does have enhanced CVA risk based on [id number] criteria; spoke with environmental studies department chair yesterday who elaborated the patient is not on any anticoagulation therapy due to increased risk of intracranial bleeding owing to known intracranial lesion thought to be metastatic. Patient is also status post stent placement in September of 2016 and on obligatory dual antiplatelet therapy Qualifiers: Atrial fibrillation type: paroxysmal Qualified Code(s): I48.0 - Paroxysmal atrial fibrillation (7) COPD with exacerbation Current Visit: Yes Status: Acute Assessment and plan: Stable and symptomatically improved; saturating well on low-rate oxygen via nasal cannula continue scheduled duonebs and Mucinex (8) Anemia Current Visit: No Status: Chronic Assessment and plan: chronic recurrent iron deficiency anemia with decrease in hemoglobin overnight; microcytic will recheck H&H this afternoon and in a.m.; will also obtain iron panel in a.m. will start patient on PO ferrous sulfate no obvious sources of bleeding on history or exam; stool is heme negative may consider transfusion if significant down trend of H&H Qualifiers: Anemia type: iron deficiency Iron deficiency anemia type: other iron deficiency Qualified Code(s): D50.8 - Other iron deficiency anemias (9) DVT prophylaxis Current Visit: Yes Status: Acute Assessment and plan: Continue sub Q lovenox - Time Spent With Patient 25 - 35 minutes - Subjective Interval history: Patient is acutely asymptomatic without any worsening shortness of breath or chest pain. Patient had mild drop in her hemoglobin of about 0.8 g. Patient is not having any acute symptoms such as lightheadedness, hematuria, melanotic stools, hematochezia, or vaginal bleeding. Patient has a history of gastritis and iron deficiency anemia which has previously been controlled with iron infusions. Patient has also had relatively good rate control with addition of metoprolol, however has had momentary runs of tachycardia in the low 100s. No other complaints at this time. - Constitutional Vitals: Temp Pulse Resp BP Pulse Ox 98.2 F 60 16 93/71 100 05/13/17 03:56 05/13/17 03:56 05/13/17 03:56 05/13/17 03:56 05/13/17 03:56 General appearance: Present: A&O X 3, pleasant, no acute distress, answers questions appropriately - Head Head exam: Present: atraumatic, normocephalic - Eye Eye exam: Present: conjuntiva pink, sclera anicteric. Absent: conjunctival injection Pupils: Absent: miosis, mydriatic - ENT ENT exam: Present: mucous membranes moist, normal oropharynx - Neck Neck exam general surgery: Present: supple, trachea midline - Respiratory Respiratory exam: Present: CTAB (Per patient's norm given history of right lung lobectomy). Absent: accessory muscle use, decreased breath sounds, rales, respiratory distress, rhonchi, wheezes, tachypnea - Cardiovascular Cardiovascular exam: Present: RRR, +S1, +S2. Absent: diastolic murmur, gallop, rubs, +S3, +S4, systolic murmur - GI/Abdominal GI/Abdominal exam: Present: soft. Absent: distended, guarding, tenderness - Rectal Rectal exam: Present: heme (-) stool, normal inspection. Absent: black stool, bloody stool, fecal impaction, hemorrhoids, mass, tenderness Additional comments: Performed with parts salvager present -- Sandra Du MS-III - Extremities Exam Extremities exam: Present: warm, radial pulses palpable and symmetrical. Absent : calf tenderness, cyanotic, mottling, pedal edema - Neurological Exam Neurological exam: Present: no focal deficits. Absent: facial droop, speech deficit - Skin Skin exam: Present: dry, intact, normal color. Absent: cyanosis, diaphoretic, mottled, pallor Internal Medicine: Result - Labs CBC & Chem 7: 05/13/17 03:41 05/13/17 03:41 Labs: Short CBC 05/12/17 05/12/17 05/13/17 Range/Units 11:41 16:48 03:41 WBC 6.5 7.0 (4.3-11.1) K/mcL Hgb 8.8 L 8.6 L 7.8 L (11.5-15.4) g/dL Hct 28.7 L 27.6 L 25.4 L (35.3-44.9) % Plt Count 189 166 (140-400) K/mcL Neutrophils # 5.9 6.1 (1.6-8.9) K/mcL BMP 05/12/17 05/12/17 05/13/17 11:41 16:48 03:41 Sodium 138 137 136 Potassium 3.0 L D 3.4 L 3.7 Chloride 103 104 105 Carbon Dioxide 23 21 24 BUN 19 21 H 23 H Creatinine 0.99 1.00 0.89 Glucose 125 H 126 H 163 H Calcium 7.6 L 7.6 L 7.4 L Liver Function 11/01/17 11/02/17 Range/Units 11:41 03:41 Total Bilirubin 0.8 0.6 (0.2-1.2) mg/dL AST 74 H 53 H (5-34) Units/L ALT 70 H 60 H (0-55) Units/L Alkaline Phosphatase 85 66 (38-126) Units/L Albumin 2.7 L 2.5 L (3.5-5.0) g/dL Laboratory Last Values WBC 7.0 K/mcL (4.3-11.1) 05/13/17 03:41 RBC 3.46 M/mcL (3.82-4.97) L 05/13/17 03:41 Hgb 7.8 g/dL (11.5-15.4) L 05/13/17 03:41 Hct 25.4 % (35.3-44.9) L 05/13/17 03:41 MCV 73.4 fL (83.0-100.0) L 05/13/17 03:41 MCH 22.5 pg (28.0-33.3) L 05/13/17 03:41 MCHC 30.7 g/dL (31.6-35.5) L 05/13/17 03:41 RDW 18.6 % (11.5-14.5) H 05/13/17 03:41 Plt Count 166 K/mcL (140-400) 05/13/17 03:41 MPV 10.4 fL (9.4-12.4) 05/13/17 03:41 Immature Gran % 0.4 % (0-4) 05/13/17 03:41 Seg Neutrophils % 87.3 % 05/13/17 03:41 Lymphocytes % 8.3 % 05/13/17 03:41 Monocytes % 3.9 % 05/13/17 03:41 Eosinophils % 0.0 % 05/13/17 03:41 Basophils % 0.1 % 05/13/17 03:41 Neutrophils # 6.1 K/mcL (1.6-8.9) 05/13/17 03:41 Lymphocytes # 0.6 K/mcL (0.6-4.6) 05/13/17 03:41 Monocytes # 0.3 K/mcL (0.0-1.3) 05/13/17 03:41 Eosinophils # 0.0 K/mcL (0.0-0.6) 05/13/17 03:41 Basophils # 0.0 K/mcL (0.0-0.2) 05/13/17 03:41 PT 16.6 Seconds (9.4-12.1) H 05/11/17 10:43 INR 1.5 05/11/17 10:43 APTT 29.4 Seconds (26.0-36.0) 05/11/17 10:43 VBG pH 7.38 pH Units (7.32-7.42) 05/11/17 11:24 VBG pCO2 38 mmHg (41-51) L 05/11/17 11:24 VBG pO2 101 mmHg (25-50) H 05/11/17 11:24 VBG HCO3 22 mEq/L (21-27) 05/11/17 11:24 Sodium 136 mEq/L (136-145) 05/13/17 03:41 Potassium 3.7 mEq/L (3.5-4.5) 05/13/17 03:41 Chloride 105 mEq/L (98-109) 05/13/17 03:41 Carbon Dioxide 24 mEq/L (19-29) 05/13/17 03:41 BUN 23 mg/dL (7-20) H 05/13/17 03:41 Creatinine 0.89 mg/dL (0.57-1.11) 05/13/17 03:41 Est GFR ( Amer) > 60 (> 60) 05/13/17 03:41 Est GFR (Non-Af Amer) > 60 (> 60) 05/13/17 03:41 BUN/Creatinine Ratio 26 (6-26) 05/13/17 03:41 Glucose 163 mg/dL (70-99) H 05/13/17 03:41 Calculated Osmolality 289 (280-300) 05/13/17 03:41 Lactic Acid 2.0 mmol/L (0.5-2.2) 05/13/17 03:41 Calcium 7.4 mg/dL (8.6-10.8) L 05/13/17 03:41 Total Bilirubin 0.6 mg/dL (0.2-1.2) 05/13/17 03:41 Direct Bilirubin 0.7 mg/dL (0.0-0.5) H 05/11/17 10:43 Indirect Bilirubin 0.6 mg/dL (0.0-1.2) 05/11/17 10:43 AST 53 Units/L (5-34) H 05/13/17 03:41 ALT 60 Units/L (0-55) H 05/13/17 03:41 Alkaline Phosphatase 66 Units/L (38-126) 05/13/17 03:41 Lactate Dehydrogenase 374 Units/L (159-327) H 05/11/17 10:43 Troponin I 0.03 ng/mL (0-0.03) 05/11/17 10:43 B-Natriuretic Peptide 1427 pg/mL (0-100) H 05/11/17 10:43 Serum Total Protein 5.2 g/dL (6.0-8.3) L 05/13/17 03:41 Albumin 2.5 g/dL (3.5-5.0) L 05/13/17 03:41 Globulin 2.7 g/dL (2.4-3.5) 05/13/17 03:41 Albumin/Globulin Ratio 0.9 (1.1-2.2) L 05/13/17 03:41 Fluid Source pleural fluid 05/11/17 14:45 Fluid Volume 550 mL 05/11/17 14:45 Fluid Appearance Clear (Clear) 05/11/17 14:45 Fluid RBC 0.002 M/mcL (No Ref Range) 05/11/17 14:45 Fld Tot Nucleated Cell 395 TNC/mcL (No Ref Range) 05/11/17 14:45 Fluid Seg Neutrophil % 4.0 % 05/11/17 14:45 Fld Band Neutrophil % Test Not Performed 05/11/17 14:45 Fluid Lymphocytes % 71.0 % 05/11/17 14:45 Fluid Monocytes % 3.0 % 05/11/17 14:45 Fluid Eosinophils % Test Not Performed 05/11/17 14:45 Fluid Basophils % Test Not Performed 05/11/17 14:45 Fluid Other Cells % 22.0 % 05/11/17 14:45 Pleural pH 7.63 pH Units (No Ref Range) 05/11/17 14:45 Pleural Total Protein 1.1 g/dL (No Ref Range) 05/11/17 14:45 Pleural Albumin 0.8 g/dL (No Ref Range) 05/11/17 14:45 Pleural LDH 69 Units/L (No Ref Range) 05/11/17 14:45 Blood Type O POSITIVE 05/12/17 16:48 Antibody Screen NEGATIVE 05/12/17 16:48 - ABG Interpretation ABG results: PT/INR, D-dimer PT 16.6 Seconds (9.4-12.1) H 05/11/17 10:43 - VTE Documentation of Mechanical Device: Intermittent pneumatic compression device Consult Discharge Plan - Plan Referrals: Enoc Leyva MD [Partnered Physician] - 05/24/17 7:30 am Senait Wong CNP [Primary Care Provider] - 05/21/17 3:00 pm () <Christian Thomas - Last Filed: 05/13/17 16:50> Date of Encounter: 05/13/17 - Constitutional Vitals: Temp Pulse Resp BP Pulse Ox 97.6 F 90 18 84/62 100 05/13/17 15:03 05/13/17 15:03 05/13/17 15:03 05/13/17 15:03 05/13/17 15:03 Internal Medicine: Result - Labs CBC & Chem 7: 05/13/17 15:51 05/13/17 03:41 Labs: Short CBC 05/12/17 05/13/17 05/13/17 Range/Units 16:48 03:41 15:51 WBC 7.0 (4.3-11.1) K/mcL Hgb 8.6 L 7.8 L 8.7 L (11.5-15.4) g/dL Hct 27.6 L 25.4 L 28.8 L (35.3-44.9) % Plt Count 166 (140-400) K/mcL Neutrophils # 6.1 (1.6-8.9) K/mcL BMP 05/12/17 05/13/17 16:48 03:41 Sodium 137 136 Potassium 3.4 L 3.7 Chloride 104 105 Carbon Dioxide 21 24 BUN 21 H 23 H Creatinine 1.00 0.89 Glucose 126 H 163 H Calcium 7.6 L 7.4 L Liver Function 05/13/17 Range/Units 03:41 Total Bilirubin 0.6 (0.2-1.2) mg/dL AST 53 H (5-34) Units/L ALT 60 H (0-55) Units/L Alkaline Phosphatase 66 (38-126) Units/L Albumin 2.5 L (3.5-5.0) g/dL - ABG Interpretation ABG results: PT/INR, D-dimer PT 16.6 Seconds (9.4-12.1) H 05/11/17 10:43 - Impressions Impressions Echocardiogram 05/12/17 11:52 Impressions: Technically challenging due to COPD. Most images were obtained from the subcostal view. Overall, LV systolic function appears normal, LVEF 60%. Not all wall segments were well visualized. Indeterminate diastolic function. Normal right ventricular size with low normal function. Mild tricuspid regurgitation. Borderline pulmonary hypertension. There is a small to moderate pericardial effusion present without evidence for tamponade. Left Ventricular Wall Motion: Rest Echo Findings The mid anterior septal, mid inferior lateral, basal anterior septal and basal inferior lateral [place] were not visualized. All other wall segments showed normal motion. Findings: Study Quality * Technically sub-optimal due to COPD. Most images were obtained from the subcostal view. ECG Findings * Atrial fibrillation. Left Ventricle * LVEF 60%. * LV is not dilated. * Visually, LV wall thickness appears normal. * Indeterminate diastolic function. Right Ventricle * Normal right ventricular size with low normal function. Left Atrium * Mildly dilated left atrium. Right Atrium * Normal right atrial size. Aortic Valve * Aortic valve not well visualized. * No aortic stenosis. * Trace aortic regurgitation. Mitral Valve * Normal mitral valve structure. * No mitral stenosis. * Trace mitral regurgitation. Tricuspid Valve * Tricuspid valve not well visualized. * Mild tricuspid regurgitation. * Estimated RA pressure is 3 mmHg. * Estimated RVSP is 35 mmHg. * Borderline pulmonary hypertension. Pulmonic Valve * Pulmonic valve not well visualized. Aorta * Appears normal in size in the subcostal view. Pulmonary Artery * Pulmonary artery not well visualized. Pericardium * There is a small to moderate pericardial effusion present. * There is no echocardiographic evidence of tamponade. No significant respiratory variation across the mitral valve. RA does not collapse. Normal IVC dimensions. Interatrial Septum * No evidence of PFO by color Doppler. IVC * Normal IVC dimensions and inspiratory collapse. - Attending Attestation I examined this patient and my medical decision-making was reviewed with the Resident Physician. I agree with the documented findings, disposition and treatment plan as described except to the extent set forth below. This is a 71 y/o F with known PMH of Chronic A fib, NSCLC had Rt pneumonectomy followed by oncology admitted here with severe SOB due to Large Left pleural effusion. Pt also happened to be in A fib with RVR. Pt stated her symptoms improved. Denied any CP. SOB also better today Chest: Diminished BS b/l, mild wheezing, No crackles No rales Heart; S1 S2 + Irregular rate and Rythm a/p 1. Acute Left pleural effusion 2. Acute on chronic hypoxic resp failure 3. Acute diastolic CHF exacerbation 4. Acute possible bacterial Pneumonia 5. Acuter COPD exacerbation s/p thoracocentesis improving.. cont IV lasix 2 D Echo ordered Cont duoneb and O2 Does not seem to be in severe COPD exacerbation.. Cont PO steroids cont empirical abx Zosyn.. d/c Vanco 6. Acute A fib with RVR cont home med Metoprolol + and switched to PO Cardizem anti coagulation rangel not a good candidate as per card due to ho mets in brain with s/p gamma knife procedure
[2017-05-13] MEDS: predniSONE 20 MG TABLET PO SCH (08:37)
[2017-05-13] MEDS: Furosemide 40 MG/4 ML VIAL IVP SCH (08:37)
[2017-05-13] MEDS: Metoprolol XL (24 HR) Succ 25 MG TAB.ER.24H PO SCH (08:38)
[2017-05-13] MEDS: Folic Acid 1 MG TABLET PO SCH (08:38)
[2017-05-13] MEDS: Gabapentin 300 MG CAPSULE PO SCH ×2 (08:38→21:24)
[2017-05-13] MEDS ORDERED: Metoprolol XL (24 HR) Succ 25 MG TAB.ER.24H PO SCH (09:00)
[2017-05-13] MEDS: Erlotinib Hcl [Tarceva] 100 MG PO SCH (10:31)
[2017-05-13] MEDS: Aspirin Enteric Coated 81 MG Tablet PO SCH (10:32)
[2017-05-13 16:28] LABS: Hematocrit 28.8 % (35.3-44.9); Hemoglobin 8.7 g/dL (11.5-15.4)
[2017-05-13] MEDS: Famotidine 20 MG TABLET PO SCH (21:23)
[2017-05-14] MEDS: Ipratropium/Albuterol Neb 3 ML IH SCH ×5 (03:33→20:49)
[2017-05-14] MEDS: Piperacillin/Tazobactam 3.375 GM in D5% in Water (Mini-Bag+) 100 ML IVPB SCH (04:03)
[2017-05-14 04:44] LABS: Hematocrit 29.7 % (35.3-44.9); Hemoglobin 8.9 g/dL (11.5-15.4); Immature Granulocytes % 0.4 % (0-4); Lymphocytes # 0.7 K/mcL (0.6-4.6); Lymphocytes % 9.4 %; Mean Corpuscular Hemoglobin 22.4 pg (28.0-33.3); Mean Corpuscular Volume 74.6 fL (83.0-100.0); Mean Platelet Volume 10.3 fL (9.4-12.4); Monocytes # 0.3 K/mcL (0.0-1.3); Monocytes % 4.2 %; Neutrophils # 6.6 K/mcL (1.6-8.9); Nucleated Red Blood Cells 0.3 /100 WBC (0); Platelet Count 196 K/mcL (140-400); Red Blood Count 3.98 M/mcL (3.82-4.97); Red Cell Distribution Width 18.7 % (11.5-14.5)
[2017-05-14 04:57] LABS: % Iron Saturation 5 % (15-50); Iron 20 mcg/dL (50-170); Transferrin 270 mg/dL (180-382)
[2017-05-14 05:20] LABS: Ferritin 27 ng/ml (5-204)
[2017-05-14] MEDS: *HR* Enoxaparin 40 MG/0.4 ML SYRINGE SQ SCH (06:06)
[2017-05-14] MEDS: Erlotinib Hcl [Tarceva] 100 MG PO SCH (07:37)
[2017-05-14] MEDS: Metoprolol XL (24 HR) Succ 25 MG TAB.ER.24H PO SCH (07:39)
[2017-05-14] MEDS ORDERED: Metoprolol XL (24 HR) Succ 25 MG TAB.ER.24H PO ONE (07:53)
[2017-05-14] MEDS: Furosemide 40 MG/4 ML VIAL IVP SCH (08:17)
[2017-05-14] MEDS: Gabapentin 300 MG CAPSULE PO SCH ×2 (08:18→21:05)
[2017-05-14] MEDS: Folic Acid 1 MG TABLET PO SCH (08:18)
[2017-05-14] MEDS: Aspirin Enteric Coated 81 MG Tablet PO SCH (08:18)
[2017-05-14] MEDS: predniSONE 20 MG TABLET PO SCH (08:21)
[2017-05-14] MEDS: Diltiazem CD (24hr) 120 MG CAPSULE PO SCH (10:51)
[2017-05-14] MEDS ORDERED: Piperacillin/Tazobactam 3.375 GM in D5% in Water 50 ML IVPB SCH (11:00)
--- NOTE | 2017-05-14 11:00 | Internal Med Progress Note ---
<Osiel Murillo - Last Filed: 05/14/17 12:42> Date of Encounter: 05/14/17 Time of Encounter: 10:58 - Assessment and plan (1) Acute respiratory failure with hypoxia Current Visit: Yes Status: Acute Assessment and plan: Continues to require 2 L by nasal cannula even at rest otherwise is not subjectively short of air continue duonebs and nasal O2 (2) Bacterial lobar pneumonia Current Visit: Yes Status: Acute (3) Congestive heart failure Current Visit: Yes Status: Chronic Assessment and plan: stable without any current symptoms of volume overload cont IV Lasix and fluid restriction cont cardiac diet Qualifiers: Congestive heart failure type: combined Congestive heart failure chronicity : acute Qualified Code(s): I50.41 - Acute combined systolic (congestive) and diastolic (congestive) heart failure (4) Pleural effusion on left Current Visit: Yes Status: Acute Assessment and plan: Symptomatically stable status post ultrasound guided thoracentesis culture & cytology pending likely precipitant of acute respiratory decompensation (5) History of malignant neoplasm metastatic to lung Current Visit: Yes Status: Acute Assessment and plan: new left lung pulmonary nodule elucidated on CT pleural fluid cytology report pending -- will discuss any pertinent findings with oncology will have patient follow-up on outpatient basis with oncology (6) Atrial fibrillation Current Visit: Yes Status: Acute Assessment and plan: Has had variable control including rate controlled aphid and normal sinus rhythm was in RVR this a.m. around 745; gave patient additional dose of 25 mg PO metoprolol increased daily metoprolol to 50 mg increased Cardizem to 120 mg XL Qualifiers: Atrial fibrillation type: paroxysmal Qualified Code(s): I48.0 - Paroxysmal atrial fibrillation (7) COPD with exacerbation Current Visit: Yes Status: Acute Assessment and plan: Stable and symptomatically improving; saturating well on low-rate oxygen via nasal cannula. Continues to be 02 dependent even at rest. continue scheduled duonebs and Mucinex (8) Anemia Current Visit: No Status: Chronic Assessment and plan: Chronic and stable; H&H drawn this morning demonstrated slight increase will continue to trend QAM continue PO ferrous sulfate no further diagnostic or interventional needs at this time Qualifiers: Anemia type: iron deficiency Iron deficiency anemia type: other iron deficiency Qualified Code(s): D50.8 - Other iron deficiency anemias (9) DVT prophylaxis Current Visit: Yes Status: Acute Assessment and plan: Continue sub Q lovenox - Time Spent With Patient less than 15 minutes - Subjective Interval history: Continues to be asymptomatic without any shortness of breath or chest pain. Patient apparently did have a recurrent run of a-fib with RVR this a.m. at about 07:45 with rate approaching 140 beats per minute. Extra dose of metoprolol was given and patient has since reverted to NSR. Patient has no complaints or concerns at this time. - Constitutional Vitals: Temp Pulse Resp BP Pulse Ox 97.6 F 88 17 96/69 96 05/14/17 10:23 05/14/17 10:23 05/14/17 10:23 05/14/17 10:23 05/14/17 10:23 General appearance: Present: A&O X 3, pleasant, no acute distress, answers questions appropriately - Head Head exam: Present: normal inspection - Eye Eye exam: Present: normal appearance. Absent: conjunctival injection, scleral icterus - Neck Neck exam general surgery: Present: trachea midline - Respiratory Respiratory exam: Present: CTAB. Absent: accessory muscle use, decreased breath sounds, prolonged expiratory phase, rales, respiratory distress, rhonchi , stridor, wheezes, tachypnea - Cardiovascular Cardiovascular exam: Present: RRR, +S1, +S2. Absent: diastolic murmur, JVD, +S3 , +S4, systolic murmur, tachycardia - GI/Abdominal GI/Abdominal exam: Present: soft. Absent: tenderness - Extremities Exam Extremities exam: Present: pedal edema (Trace pitting virtually unchanged from prior exam), radial pulses palpable and symmetrical. Absent: cyanotic - Neurological Exam Neurological exam: Present: alert, no focal deficits. Absent: facial droop, speech deficit - Skin Skin exam: Present: normal color. Absent: cyanosis, diaphoretic, mottled, pallor Internal Medicine: Result - Labs CBC & Chem 7: 05/14/17 04:29 05/13/17 03:41 Labs: Short CBC 05/13/17 05/14/17 Range/Units 15:51 04:29 WBC 7.6 (4.3-11.1) K/mcL Hgb 8.7 L 8.9 L (11.5-15.4) g/dL Hct 28.8 L 29.7 L (35.3-44.9) % Plt Count 196 (140-400) K/mcL Neutrophils # 6.6 (1.6-8.9) K/mcL Laboratory Last Values WBC 7.6 K/mcL (4.3-11.1) 05/14/17 04:29 RBC 3.98 M/mcL (3.82-4.97) 05/14/17 04:29 Hgb 8.9 g/dL (11.5-15.4) L 05/14/17 04:29 Hct 29.7 % (35.3-44.9) L 05/14/17 04:29 MCV 74.6 fL (83.0-100.0) L 05/14/17 04:29 MCH 22.4 pg (28.0-33.3) L 05/14/17 04:29 MCHC 30.0 g/dL (31.6-35.5) L 05/14/17 04:29 RDW 18.7 % (11.5-14.5) H 05/14/17 04:29 Plt Count 196 K/mcL (140-400) 05/14/17 04:29 MPV 10.3 fL (9.4-12.4) 05/14/17 04:29 Immature Gran % 0.4 % (0-4) 05/14/17 04:29 Seg Neutrophils % 86.0 % 05/14/17 04:29 Lymphocytes % 9.4 % 05/14/17 04:29 Monocytes % 4.2 % 05/14/17 04:29 Eosinophils % 0.0 % 05/14/17 04:29 Basophils % 0.0 % 05/14/17 04:29 Neutrophils # 6.6 K/mcL (1.6-8.9) 05/14/17 04:29 Lymphocytes # 0.7 K/mcL (0.6-4.6) 05/14/17 04:29 Monocytes # 0.3 K/mcL (0.0-1.3) 05/14/17 04:29 Eosinophils # 0.0 K/mcL (0.0-0.6) 05/14/17 04:29 Basophils # 0.0 K/mcL (0.0-0.2) 05/14/17 04:29 Nucleated RBCs/100 WBC 0.3 /100 WBC (0) H 05/14/17 04:29 PT 16.6 Seconds (9.4-12.1) H 05/11/17 10:43 INR 1.5 05/11/17 10:43 APTT 29.4 Seconds (26.0-36.0) 05/11/17 10:43 VBG pH 7.38 pH Units (7.32-7.42) 05/11/17 11:24 VBG pCO2 38 mmHg (41-51) L 05/11/17 11:24 VBG pO2 101 mmHg (25-50) H 05/11/17 11:24 VBG HCO3 22 mEq/L (21-27) 05/11/17 11:24 Sodium 136 mEq/L (136-145) 05/13/17 03:41 Potassium 3.7 mEq/L (3.5-4.5) 05/13/17 03:41 Chloride 105 mEq/L (98-109) 05/13/17 03:41 Carbon Dioxide 24 mEq/L (19-29) 05/13/17 03:41 BUN 23 mg/dL (7-20) H 05/13/17 03:41 Creatinine 0.89 mg/dL (0.57-1.11) 05/13/17 03:41 Est GFR ( Amer) > 60 (> 60) 05/13/17 03:41 Est GFR (Non-Af Amer) > 60 (> 60) 05/13/17 03:41 BUN/Creatinine Ratio 26 (6-26) 05/13/17 03:41 Glucose 163 mg/dL (70-99) H 05/13/17 03:41 Calculated Osmolality 289 (280-300) 05/13/17 03:41 Lactic Acid 2.0 mmol/L (0.5-2.2) 05/13/17 03:41 Calcium 7.4 mg/dL (8.6-10.8) L 05/13/17 03:41 Iron 20 mcg/dL (50-170) L 05/14/17 04:29 % Saturation 5 % (15-50) L 05/14/17 04:29 Transferrin 270 mg/dL (180-382) 05/14/17 04:29 Ferritin 27 ng/ml (5-204) 05/14/17 04:29 Total Bilirubin 0.6 mg/dL (0.2-1.2) 05/13/17 03:41 Direct Bilirubin 0.7 mg/dL (0.0-0.5) H 05/11/17 10:43 Indirect Bilirubin 0.6 mg/dL (0.0-1.2) 05/11/17 10:43 AST 53 Units/L (5-34) H 05/13/17 03:41 ALT 60 Units/L (0-55) H 05/13/17 03:41 Alkaline Phosphatase 66 Units/L (38-126) 05/13/17 03:41 Lactate Dehydrogenase 374 Units/L (159-327) H 05/11/17 10:43 Troponin I 0.03 ng/mL (0-0.03) 05/11/17 10:43 B-Natriuretic Peptide 1427 pg/mL (0-100) H 05/11/17 10:43 Serum Total Protein 5.2 g/dL (6.0-8.3) L 05/13/17 03:41 Albumin 2.5 g/dL (3.5-5.0) L 05/13/17 03:41 Globulin 2.7 g/dL (2.4-3.5) 05/13/17 03:41 Albumin/Globulin Ratio 0.9 (1.1-2.2) L 05/13/17 03:41 Fluid Source pleural fluid 05/11/17 14:45 Fluid Volume 550 mL 05/11/17 14:45 Fluid Appearance Clear (Clear) 05/11/17 14:45 Fluid RBC 0.002 M/mcL (No Ref Range) 05/11/17 14:45 Fld Tot Nucleated Cell 395 TNC/mcL (No Ref Range) 05/11/17 14:45 Fluid Seg Neutrophil % 4.0 % 05/11/17 14:45 Fld Band Neutrophil % Test Not Performed 05/11/17 14:45 Fluid Lymphocytes % 71.0 % 05/11/17 14:45 Fluid Monocytes % 3.0 % 05/11/17 14:45 Fluid Eosinophils % Test Not Performed 05/11/17 14:45 Fluid Basophils % Test Not Performed 05/11/17 14:45 Fluid Other Cells % 22.0 % 05/11/17 14:45 Pleural pH 7.63 pH Units (No Ref Range) 05/11/17 14:45 Pleural Total Protein 1.1 g/dL (No Ref Range) 05/11/17 14:45 Pleural Albumin 0.8 g/dL (No Ref Range) 05/11/17 14:45 Pleural LDH 69 Units/L (No Ref Range) 05/11/17 14:45 Blood Type O POSITIVE 05/12/17 16:48 Antibody Screen NEGATIVE 05/12/17 16:48 - ABG Interpretation ABG results: PT/INR, D-dimer PT 16.6 Seconds (9.4-12.1) H 05/11/17 10:43 - Impressions Impressions Echocardiogram 05/12/17 11:52 Impressions: Technically challenging due to COPD. Most images were obtained from the subcostal view. Overall, LV systolic function appears normal, LVEF 60%. Not all wall segments were well visualized. Indeterminate diastolic function. Normal right ventricular size with low normal function. Mild tricuspid regurgitation. Borderline pulmonary hypertension. There is a small to moderate pericardial effusion present without evidence for tamponade. Left Ventricular Wall Motion: Rest Echo Findings The mid anterior septal, mid inferior lateral, basal anterior septal and basal inferior lateral l[place] were not visualized. All other wall segments showed normal motion. Findings: Study Quality * Technically sub-optimal due to COPD. Most images were obtained from the subcostal view. ECG Findings * Atrial fibrillation. Left Ventricle * LVEF 60%. * LV is not dilated. * Visually, LV wall thickness appears normal. * Indeterminate diastolic function. Right Ventricle * Normal right ventricular size with low normal function. Left Atrium * Mildly dilated left atrium. Right Atrium * Normal right atrial size. Aortic Valve * Aortic valve not well visualized. * No aortic stenosis. * Trace aortic regurgitation. Mitral Valve * Normal mitral valve structure. * No mitral stenosis. * Trace mitral regurgitation. Tricuspid Valve * Tricuspid valve not well visualized. * Mild tricuspid regurgitation. * Estimated RA pressure is 3 mmHg. * Estimated RVSP is 35 mmHg. * Borderline pulmonary hypertension. Pulmonic Valve * Pulmonic valve not well visualized. Aorta * Appears normal in size in the subcostal view. Pulmonary Artery * Pulmonary artery not well visualized. Pericardium * There is a small to moderate pericardial effusion present. * There is no echocardiographic evidence of tamponade. No significant respiratory variation across the mitral valve. RA does not collapse. Normal IVC dimensions. Interatrial Septum * No evidence of PFO by color Doppler. IVC * Normal IVC dimensions and inspiratory collapse. - VTE Documentation of Mechanical Device: Intermittent pneumatic compression device Consult Discharge Plan - Plan Referrals: Enoc Leyva MD [Partnered Physician] - 05/24/17 7:30 am Senait Wong CNP [Primary Care Provider] - 05/21/17 3:00 pm () <Christian Thomas - Last Filed: 05/14/17 15:48> Date of Encounter: 05/14/17 - Constitutional Vitals: Temp Pulse Resp BP Pulse Ox 97.4 F L 71 16 97/64 100 05/14/17 15:21 05/14/17 15:21 05/14/17 15:21 05/14/17 15:21 05/14/17 15:21 Internal Medicine: Result - Labs CBC & Chem 7: 05/14/17 04:29 05/13/17 03:41 Labs: Short CBC 05/13/17 05/14/17 Range/Units 15:51 04:29 WBC 7.6 (4.3-11.1) K/mcL Hgb 8.7 L 8.9 L (11.5-15.4) g/dL Hct 28.8 L 29.7 L (35.3-44.9) % Plt Count 196 (140-400) K/mcL Neutrophils # 6.6 (1.6-8.9) K/mcL - ABG Interpretation ABG results: PT/INR, D-dimer PT 16.6 Seconds (9.4-12.1) H 05/11/17 10:43 - Attending Attestation I examined this patient and my medical decision-making was reviewed with the Resident Physician. I agree with the documented findings, disposition and treatment plan as described except to the extent set forth below. This is a 71 y/o F with known PMH of Chronic A fib, NSCLC had Rt pneumonectomy followed by oncology admitted here with severe SOB due to Large Left pleural effusion. Pt also happened to be in A fib with RVR. Pt stated her symptoms improved. Denied any CP. SOB also better today..She is still going in and out Afib..her HR also fairly controlled Chest: Diminished BS b/l, mild wheezing, No crackles No rales Heart; S1 S2 + Irregular rate and Rythm a/p 1. Acute Left pleural effusion 2. Acute on chronic hypoxic resp failure 3. Acute diastolic CHF exacerbation 4. Acute possible bacterial Pneumonia 5. Acuter COPD exacerbation s/p thoracocentesis improving.. cont IV lasix Cont duoneb and O2 Does not seem to be in severe COPD exacerbation.. Cont PO steroids Abx will switch to Augmentin Her fluid cytology came back as non malignancy..informed the pt 6. Acute A fib with RVR HR fairly controlled so inc Metoprolol to 50mg daily + Cont Cardizem CD 120mg daily anti coagulation rangel not a good candidate as per card due to ho mets in brain with s/p gamma knife procedure
--- NOTE | 2017-05-14 14:35 | Event Note ---
Date of Encounter: 05/14/17 Time of Encounter: 14:34 Patient with transudative effusion likely s/t to CHF with Cytology negative for malignancy. Pulmonary will s/o please call with questions.
[2017-05-14] MEDS: Famotidine 20 MG TABLET PO SCH (21:05)
[2017-05-15] MEDS: Ipratropium/Albuterol Neb 3 ML IH SCH ×3 (00:53→07:51)
[2017-05-15 06:50] VITALS: BP 127/96
[2017-05-15] MEDS: Erlotinib Hcl [Tarceva] 100 MG PO SCH (06:54)
[2017-05-15] MEDS: *HR* Enoxaparin 40 MG/0.4 ML SYRINGE SQ SCH (06:55)
[2017-05-15] MEDS: Aspirin Enteric Coated 81 MG Tablet PO SCH (08:18)
[2017-05-15] MEDS: predniSONE 20 MG TABLET PO SCH (08:18)
[2017-05-15] MEDS: Furosemide 40 MG/4 ML VIAL IVP SCH (08:18)
[2017-05-15] MEDS: Folic Acid 1 MG TABLET PO SCH (08:19)
[2017-05-15] MEDS: Diltiazem CD (24hr) 120 MG CAPSULE PO SCH (08:19)
[2017-05-15] MEDS: Gabapentin 300 MG CAPSULE PO SCH (08:19)
[2017-05-15] MEDS ORDERED: Metoprolol XL (24 HR) Succ 50 MG TAB.ER.24H PO SCH (09:00)
--- NOTE | 2017-05-15 09:17 | Discharge Summary ---
Date of Encounter: 05/15/17 Time of Encounter: 09:15 - Discharge Diagnosis (1) Acute and chronic respiratory failure with hypoxia Priority: Primary Status: Acute (2) Atrial fibrillation with RVR Priority: Primary Status: Acute (3) Pleural effusion on left Priority: Primary Status: Acute (4) Acute on chronic diastolic heart failure Priority: Secondary Status: Acute (5) COPD with exacerbation Priority: Secondary Status: Acute (6) Bacterial lobar pneumonia Priority: Secondary Status: Acute (7) Non-small cell lung cancer Priority: Secondary Status: Chronic Qualifiers: Laterality: left Qualified Code(s): C34.92 - Malignant neoplasm of unspecified part of left bronchus or lung - Discharge Medications Prescriptions: Amoxicillin/Clavulanate [Augmentin] 875 mg PO BID #6 tablet Diltiazem CD (24hr) [Cardizem CD] 120 mg PO DAILY #30 cap.er.24h Metoprolol XL (24 HR) Succ [Toprol Xl] 50 mg PO DAILY #30 tab.er.24h predniSONE [PredniSONE] 40 mg PO DAILY #10 tablet Home Medications: Albuterol Neb [Proventil Neb] 2.5 mg IH Q4HR 05/21/15 [History] Aspirin [Adult Low Dose Aspirin EC] 81 mg PO DAILY 05/21/15 [History] Calcium Carbonate [Tums] 500 mg PO DAILY 05/21/15 [History] Docusate [Colace] 100 mg PO BID 05/21/15 [History] Sertraline [Zoloft] 25 mg PO DAILY 10/03/16 [History] Tiotropium [Spiriva] 18 mcg IH DAILY 10/03/16 [History] Oxygen 1 each .ROUTE AD 10/28/16 [History] Clopidogrel [Plavix] 75 mg PO DAILY #30 tablet 01/13/17 [Rx] HYDROcodone/Acet 5/325 mg [[place] 5-325 mg] 1 tab PO TID #90 tab 02/09/17 [Rx] Ranitidine HCl [Zantac] 150 mg PO BID #180 tablet 02/10/17 [Rx] Erlotinib HCl [Tarceva] 100 mg PO DAILY 30 Days tablet 02/26/17 [Rx] Atorvastatin [Lipitor] 40 mg PO DAILY 03/19/17 [History] Gabapentin [Neurontin] 2 tab PO BID #120 capsule 04/14/17 [Rx] Furosemide [Lasix] 40 mg PO DAILY #90 tablet 04/19/17 [Rx] Folic Acid 1 mg PO DAILY #90 tablet 05/06/17 [Rx] Pantoprazole Sodium [Protonix] 40 mg PO DAILY 05/11/17 [History] Amoxicillin/Clavulanate [Augmentin] 875 mg PO BID #6 tablet 05/15/17 [Rx] Diltiazem CD (24hr) [Cardizem CD] 120 mg PO DAILY #30 cap.er.24h 05/15/17 [Rx] Ferrous Sulfate 325 mg PO BID #60 tablet 05/15/17 [Rx] Metoprolol XL (24 HR) Succ [Toprol Xl] 50 mg PO DAILY #30 tab.er.24h 05/15/17 [ Rx] predniSONE [PredniSONE] 40 mg PO DAILY #10 tablet 05/15/17 [Rx] Allergies/Adverse Reactions: 3 Allergy/AdvReac Type Severity Reaction Status Date / Time No Known Allergies Allergy Verified 03/19/17 09:01 Procedures/tests Complete & Pending: Procedures Performed prior 72 hours Category Date Time Status EKG [ECG 12 lead ECG] [ECG] Routine Y 05/12/17 09:42 Completed EKG [ECG 12 lead ECG] [ECG] Routine Y 05/12/17 23:41 Completed EV echocardiogram Routine Y 05/12/17 11:52 Completed Date of admission: 05/11/17 13:29 Primary care physician: Senait Wong CNP Consults: 05/11/17 14:08 Consult to Interventional Radiology [CONS] Stat Consulting Provider: Radiology Interventional Cols Reason for Consult: pulmonary thoracentesis Time Notified: 14:08 Call Completed: Yes 05/11/17 14:20 Consult to Nurse Navigator [CONS] Routine Comment: - Patient Status Disposition: Home, Self-Care Condition: Good Overall status at discharge: patient is back to baseline - Discharge Instructions Follow Up With: Enoc Leyva MD [Partnered Physician] - 05/24/17 7:30 am Senait Wong CNP [Primary Care Provider] - 05/21/17 3:00 pm () Shawn Valadez MD [Partnered Physician] - - Diet and Activity Activity: increase activity as tolerated, wear oxygen at all times Diet: advance to your usual diet Hospital course: Ms. Wong is a 71 year old female with a remote history of ALL diagnosed in 1986 who is being treated for metastatic right lung non-small cell lung cancer initially diagnosed in 2004. She developed recurrence in 2008 and has been on Tarceva since January 2010 with excellent control of her disease. She did have isolated brain metastasis s/p SRS 05/31/13. She also have chronic Afib, HTN, Diastolic CHF, COPD, chronic hypoxic resp failure on hoe O2 dependent pt admitted with worsenign SOB due to Left pleural effusion and Pneumonia. Pt did have thoracocentesis done and got removed 550cc fluid. Her fluid cytology came back as non malignancy, reactive mesothelial and inflammatory cells. Her pleural effusion seems to be due to diastolic CHF exacerbation. So continued IV diuresis here and her symptoms started improving slowly. She was also in Afib with RVR initially, for which she was placed on Cardizem gtt initially and switched to PO later. Her HR is now well controlled with inc Metoprolol 50mg daily and Cardizem CD 120mg PO daily. Will d/c her home in stable condition today. - Time Spent with Patient Total time spent providing and/or coordinating discharge services: Greater than 30 minutes (Spent 35 minutes on this pt's d/c summary due to her complex and multiple medical problems) - Constitutional Vitals: Temp Pulse Resp BP Pulse Ox 97.7 F 67 18 127/96 100 05/15/17 06:46 05/15/17 06:46 05/15/17 06:46 05/15/17 06:46 05/15/17 06:46 General appearance: Present: A&O X 3, pleasant, no acute distress, answers questions appropriately - Head Head exam: Present: atraumatic, normal inspection - Respiratory Respiratory exam: Present: decreased breath sounds, wheezes (mild). Absent: rales, respiratory distress, rhonchi - Cardiovascular Cardiovascular exam: Present: irregular rhythm, +S1, +S2. Absent: systolic murmur - GI/Abdominal GI/Abdominal exam: Present: normal bowel sounds, soft. Absent: rebound, rigid, tenderness - Extremities Exam Extremities exam: Absent: calf tenderness, pedal edema, tenderness - Back Exam Back exam: Absent: CVA tenderness (L), CVA tenderness (R) - Neurological Exam Neurological exam: Present: alert, oriented X3 - Psychiatric Psychiatric exam: Present: normal affect, normal mood - VTE Documentation of Mechanical Device: Intermittent pneumatic compression device
[2017-05-15] MEDS ORDERED: FLUARIX QUAD 2017-18 36MOS UP/PF 0.5 ML SYRINGE IM ONE (10:08)
--- NOTE | 2017-05-15 11:25 | Electrocardiograph Report ---
[place] [address] Test Date: 2017-05-12 Pat Name: Clara Wong Department: 110 Room: 2N03 Gender: F Engine Inspector: VERONIQUE : 1945 Requested By: Osiel Murillo Order Number: [id number] Reading MD: Debora Diaz Measurements Intervals [place] Rate: 109 P: [place]: 0 QRS: -10 QRSD: 100 T: 210 QT: 376 QTc: 440 Interpretive Statements ATRIAL FIBRILLATION WITH RAPID VENTRICULAR RESPONSE LOW VOLTAGE IN LIMB LEADS Electronically Signed On 05-15-2017 11:23:45 EDT by Debora Diaz
--- NOTE | 2017-05-15 11:41 | Electrocardiograph Report ---
[place] [id number] Test Date: 2017-05-13 Pat Name: Clara Wong Department: 110 Room: 2N03 Gender: F Material Attendant: MESSI : 1945 Requested By: Jermaine Barnes Order Number: [id number] Reading MD: Debora Diaz Measurements Intervals [place] Rate: 109 P: [place]: 0 QRS: -11 QRSD: 94 T: 0 QT: 362 QTc: 426 Interpretive Statements ATRIAL FIBRILLATION WITH RAPID VENTRICULAR RESPONSE NONSPECIFIC ST & T-WAVE ABNORMALITY ABNORMAL RHYTHM ECG Electronically Signed On 05-15-2017 11:39:13 EDT by Debora Diaz
== END 2017-05-15 11:00 | disposition home or self-care (01) | DRG 291 ==
LOC: EMEROO 10:06 → 2NENU 13:29 → SUATTDRO 13:29 → 2NNU 14:48
PROVIDERS: ADMIT Family Medicine; ATTEND Family Medicine

== ENCOUNTER 2017-06-16 12:40 | Inpatient (IN) ==
[2017-06-16 14:07] LABS: BUN/Creatinine Ratio 16 (6-26); Blood Urea Nitrogen 17 mg/dL (7-20); Calcium 8.4 mg/dL (8.6-10.8); Carbon Dioxide 28 mEq/L (19-29); Chloride 97 mEq/L (98-109); Glucose 92 mg/dL (70-99); Osmolality,Calculated 283 (280-300); Potassium 3.5 mEq/L (3.5-4.5); Sodium 136 mEq/L (136-145); eGFR For African Americans > 60 (> 60); eGFR For Non-African Americans 50 (> 60)
[2017-06-16 14:10] LABS: Basophils # 0.1 K/mcL (0.0-0.2); Basophils % 0.9 %; Eosinophils # 0.1 K/mcL (0.0-0.6); Eosinophils % 0.9 %; Hematocrit 32.3 % (35.3-44.9); Hemoglobin 9.6 g/dL (11.5-15.4); Immature Granulocytes % 0.3 % (0-4); Lymphocytes # 1.8 K/mcL (0.6-4.6); Lymphocytes % 23.4 %; Mean Corpuscular HGB Conc 29.7 g/dL (31.6-35.5); Mean Corpuscular Hemoglobin 21.5 pg (28.0-33.3); Mean Corpuscular Volume 72.4 fL (83.0-100.0); Mean Platelet Volume 9.9 fL (9.4-12.4); Monocytes % 13.1 %; Neutrophils # 4.6 K/mcL (1.6-8.9); Platelet Count 291 K/mcL (140-400); Red Blood Count 4.46 M/mcL (3.82-4.97); Red Cell Distribution Width 20.5 % (11.5-14.5); Segmented Neutrophils % 61.4 %
[2017-06-16] MEDS ORDERED: Furosemide 20 MG/2 ML VIAL IVP ONE (14:23)
--- NOTE | 2017-06-16 14:57 | Emergency Department Note ---
Disposition Clinical Impression: SOB (shortness of breath), Hypoxia CHF (congestive heart failure) Qualifiers: Congestive heart failure type: unspecified congestive heart failure type Congestive heart failure chronicity: acute on chronic Qualified Code(s): I50.9 - Heart failure, unspecified Disposition: Admitted As Inpatient Condition: Good Referrals: Senait Wong CAR RIDER [Primary Care Provider] - Forms: ED Satisfaction Letter Time of Disposition: 15:00 General Adult HPI - General Chief complaint: ED Shortness of Breath/Dyspnea Stated complaint: "Low O2" sent per Senait Wong Time Seen by Provider: 06/16/17 12:58 Source: patient Mode of arrival: ambulatory Limitations: no limitations Nursing Notes Reviewed: Yes Vital Signs Reviewed: Yes - History of Present Illness HPI Narrative: 71-year-old female presenting to the emergency department chief complaint shortness of breath and hypoxia. Patient states for the past 2 days she has been feeling increasing short of breath and dizzy. She went to her primary care physician today and they told her to come to the emergency department. Patient has a known history of A. fib along with CHF and a complete right lung removal due to cancer. Patient denies any chest pain. She does state she normally wears 3 L of oxygen at night but does not normally wear throughout the day. She states she was concerned when her fingers and lips started turning blue and therefore went to her primary care physician. Patient denies any fevers at home or any sick contacts. Patient states she did have radiation for her cancer and also takes a daily oral medication which she believes is chemotherapy. Pain Scale: 9 - Related Data Home Medications Medication Instructions Recorded Confirmed Albuterol Neb [Proventil Neb] 2.5 mg IH Q4HR 05/21/15 06/16/17 Aspirin [Adult Low Dose Aspirin EC] 81 mg PO DAILY 05/21/15 06/16/17 Calcium Carbonate [Tums] 500 mg PO DAILY 05/21/15 06/16/17 Docusate [Colace] 100 mg PO BID 05/21/15 06/16/17 Oxygen 1 each .ROUTE AD 10/28/16 06/16/17 Atorvastatin [Lipitor] 40 mg PO DAILY 03/19/17 06/16/17 Pantoprazole Sodium [Protonix] 40 mg PO DAILY 05/11/17 06/16/17 Gabapentin [Neurontin] 600 tab PO BID 06/16/17 06/16/17 Previous Rx's Medication Instructions Recorded Clopidogrel [Plavix] 75 mg PO DAILY #30 tablet 01/13/17 HYDROcodone/Acet 5/325 mg [[place] 1 tab PO TID #90 tab 02/09/17 5-325 mg] Ranitidine HCl [Zantac] 150 mg PO BID #180 tablet 02/10/17 Erlotinib HCl [Tarceva] 100 mg PO DAILY 30 Days tablet 02/26/17 Furosemide [Lasix] 40 mg PO DAILY #90 tablet 04/19/17 Folic Acid 1 mg PO DAILY #90 tablet 05/06/17 Diltiazem CD (24hr) [Cardizem CD] 120 mg PO DAILY #30 cap.er.24h 05/15/17 Ferrous Sulfate 325 mg PO BID #60 tablet 05/15/17 Metoprolol XL (24 HR) Succ [Toprol 50 mg PO DAILY #30 tab.er.24h 05/15/17 Xl] Allergies Allergy/AdvReac Type Severity Reaction Status Date / Time No Known Allergies Allergy Verified 03/19/17 09:01 All systems ED: reviewed and negative except as stated. Constitutional: Denies: fever, chills Eyes: Reports: as per HPI ENT ED: Reports: as per HPI Cardiovascular: Reports: chest pain. Denies: palpitations Respiratory: Denies: cough, dyspnea, wheezes Gastrointestinal: Denies: abdominal pain, nausea, vomiting Genitourinary: Reports: as per HPI Musculoskeletal: Denies: neck pain Integumentary: Reports: abrasion. Denies: rash Neurological: Denies: weakness, numbness, paresthesias Psychiatric: Reports: as per HPI Endocrine: Reports: as per HPI Hematological/Lymphatic: Reports: as per HPI Allergic/Immunologic: Reports: as per HPI Past Medical History - Past Medical History Attestation: Yes The following information was validated with the patient. Medical history: Reports: atrial fibrillation, cancer, COPD, GERD, myocardial infarction, seizures Surgical history: Reports: angioplasty/stent, cancer surgery, cholecystectomy Psychiatric history: Reports: anxiety, depression - Social History Smoking Status: Former smoker Smokeless Tobacco Status: No Alcohol use: Reports: none Drug use: Reports: none Physical Exam - General Limitations: no limitations General appearance: alert, in no apparent distress - Head Head exam: atraumatic, normocephalic, normal inspection - Eye Eye exam: Present: normal appearance. Absent: scleral icterus, conjunctival injection - Neck Neck exam: Present: normal inspection, full ROM. Absent: tenderness - Chest Chest inspection: Present: normal inspection, symmetric chest wall rise. Absent : tenderness, rash - Respiratory Respiratory exam: Present: other (No breath sounds on the right side. Decreased breath sounds on the left side) - Cardiovascular Cardiovascular exam: Present: tachycardia, irregular rhythm - Abdominal Exam Abdominal exam: Present: soft, Non-Tender. Absent: distention, guarding, rebound - Extremities Exam Extremities exam: Present: normal inspection, full ROM - Neurological Exam Neurological exam: Present: alert, oriented X3 - Psychiatric Psychiatric exam: Present: normal affect, normal mood - Skin Skin exam: Present: warm, intact Course Course Narrative: 71-year-old female presenting to the emergency Department chief complaint shortness of breath and hypoxia. We will perform a dyspnea workup including chest x-ray, EKG, troponin and basic lab work. Patient alert and oriented 3 in the room. She is tachycardic and currently in A. fib but rate controlled. Heart rate in the low 100s. Patient agrees with this plan. - Reevaluation(s) Reevaluation #1: Patient's lab work has resulted in shows an elevated BNP along with an elevated troponin. Patient seems to have a chronically elevated troponin. She is not currently having any chest pain. Patient has no white blood cell count. We will provide the patient with 20 mg of IV Lasix at this time for small pleural effusion noted on chest x-ray. Patient is alert and oriented 3 in the room and has had stable vital signs throughout her stay. We will admit the patient at this time for increased shortness of breath and CHF. She agrees with this plan. The hospitalist on-call Dr. Mata agrees to accept the patient. Vital Signs Pulse Rate 122 06/16/17 12:53 Respiratory Rate 22 06/16/17 12:53 Blood Pressure 93/63 06/16/17 12:53 O2 Sat by Pulse Oximetry 85 06/16/17 12:53 Temperature 98.2 F 06/16/17 12:55 Pulse Rate 114 06/16/17 13:05 Respiratory Rate 22 06/16/17 13:05 Blood Pressure 121/71 06/16/17 13:05 O2 Sat by Pulse Oximetry 100 06/16/17 13:05 Oxygen Delivery Oxygen Delivery Nasal Cannula Medical Decision Making - Lab Data Result diagrams: 06/16/17 13:47 06/16/17 13:47 Lab Results 06/16/17 06/16/17 06/16/17 Range/Units 13:47 13:47 13:47 WBC 7.5 (4.3-11.1) K/mcL RBC 4.46 (3.82-4.97) M/mcL Hgb 9.6 L (11.5-15.4) g/dL Hct 32.3 L (35.3-44.9) % MCV 72.4 L (83.0-100.0) fL MCH 21.5 L (28.0-33.3) pg MCHC 29.7 L (31.6-35.5) g/dL RDW 20.5 H (11.5-14.5) % Plt Count 291 (140-400) K/mcL MPV 9.9 (9.4-12.4) fL Immature Gran % 0.3 (0-4) % Seg Neutrophils % 61.4 % Lymphocytes % 23.4 % Monocytes % 13.1 % Eosinophils % 0.9 % Basophils % 0.9 % Neutrophils # 4.6 (1.6-8.9) K/mcL Lymphocytes # 1.8 (0.6-4.6) K/mcL Monocytes # 1.0 (0.0-1.3) K/mcL Eosinophils # 0.1 (0.0-0.6) K/mcL Basophils # 0.1 (0.0-0.2) K/mcL Sodium 136 (136-145) mEq/L Potassium 3.5 (3.5-4.5) mEq/L Chloride 97 L (98-109) mEq/L Carbon Dioxide 28 (19-29) mEq/L BUN 17 (7-20) mg/dL Creatinine 1.09 (0.57-1.11) mg/dL Est GFR ( Amer) > 60 (> 60) Est GFR (Non-Af Amer) 50 L (> 60) BUN/Creatinine Ratio 16 (6-26) Glucose 92 (70-99) mg/dL Calculated Osmolality 283 (280-300) Lactic Acid 1.0 (0.5-2.2) mmol/L Calcium 8.4 L (8.6-10.8) mg/dL Troponin I (0-0.03) ng/mL B-Natriuretic Peptide (0-100) pg/mL 06/16/17 06/16/17 Range/Units 13:47 13:47 WBC (4.3-11.1) K/mcL RBC (3.82-4.97) M/mcL Hgb (11.5-15.4) g/dL Hct (35.3-44.9) % MCV (83.0-100.0) fL MCH (28.0-33.3) pg MCHC (31.6-35.5) g/dL RDW (11.5-14.5) % Plt Count (140-400) K/mcL MPV (9.4-12.4) fL Immature Gran % (0-4) % Seg Neutrophils % % Lymphocytes % % Monocytes % % Eosinophils % % Basophils % % Neutrophils # (1.6-8.9) K/mcL Lymphocytes # (0.6-4.6) K/mcL Monocytes # (0.0-1.3) K/mcL Eosinophils # (0.0-0.6) K/mcL Basophils # (0.0-0.2) K/mcL Sodium (136-145) mEq/L Potassium (3.5-4.5) mEq/L Chloride (98-109) mEq/L Carbon Dioxide (19-29) mEq/L BUN (7-20) mg/dL Creatinine (0.57-1.11) mg/dL Est GFR ( Amer) (> 60) Est GFR (Non-Af Amer) (> 60) BUN/Creatinine Ratio (6-26) Glucose (70-99) mg/dL Calculated Osmolality (280-300) Lactic Acid (0.5-2.2) mmol/L Calcium (8.6-10.8) mg/dL Troponin I 0.04 H* (0-0.03) ng/mL B-Natriuretic Peptide 1835 H (0-100) pg/mL - EKG Data EKG #1 EKG attestation: Yes I reviewed and interpreted this EKG. EKG results narrative: Atrial fibrillation. 99 bpm. QRS 90, QTC 437. No signs of acute ST segment elevation or ischemia. No previous EKG to compare to.
--- NOTE | 2017-06-16 15:33 | Emergency Department Note ---
START Narrative - START START: I examined this patient and my medical decision-making was reviewed with the Resident Physician. I agree with the documented findings, disposition and treatment plan as described except to the extent set forth below. 71-year-old female presented with shortness of breath and a headache. Workup in the ER did not reveal any significant findings. However, she has a previous right pneumonectomy and she is here for shortness of breath I feel she she needs to be admitted. Her CT of the brain was negative for any acute pathology. Patient needs admitted for observation for the shortness of breath.
[2017-06-16] MEDS ORDERED: Naloxone 0.4 MG/ML INJ IVP PRN (15:59)
[2017-06-16] MEDS: Acetaminophen 325 MG TABLET PO PRN (16:18)
--- NOTE | 2017-06-16 18:22 | Internal Med History&Physical ---
Date of Encounter: 06/16/17 Time of Encounter: 17:00 Assessment and Plan (1) Acute on chronic diastolic heart failure Current visit: Yes Status: Acute Patient has been expressing increasing shortness of breath and lower extremity swelling chest x-ray does reveal CHF. We will diuresis patient overnight Monitor intake and output daily weights Low-sodium diet Fluid restriction Monitor electrolytes and replace as needed Continuous cardiac monitoring Oxygen as needed (2) Acute and chronic respiratory failure Current visit: Yes Status: Acute Most likely secondary to exacerbation of CHF. We will diuresis patient overnight continued with oxygen as needed to maintain SPO2 greater than 92% Qualifiers: Respiratory failure complication: hypoxia Qualified Code(s): J96.21 - Acute and chronic respiratory failure with hypoxia (3) Non-small cell lung cancer Current visit: No Status: Chronic 1 continue with Tarceva -have patient continue outpatient follow-up with oncology Qualifiers: Laterality: left Qualified Code(s): C34.92 - Malignant neoplasm of unspecified part of left bronchus or lung (4) Hypertension Current visit: No Status: Chronic Qualifiers: Hypertension type: essential hypertension Qualified Code(s): I10 - Essential (primary) hypertension (5) Elevated troponin Current visit: No Status: Acute Most likely related to demand ischemia from heart failure we will continue to trend troponins (6) Coronary artery disease Current visit: No Status: Acute 1 continue with dual antiplatelet as well as metoprolol statin I treat as needed for chest pain Qualifiers: Coronary Disease-Associated Artery/Lesion type: [place] artery [place] vs. transplanted heart: [place] heart Associated angina: without angina Qualified Code(s): I25.10 - Atherosclerotic heart disease of [place] coronary artery without angina pectoris (7) Atrial fibrillation Current visit: No Status: Chronic Presently patient is in sinus rhythm with rate control. We will continue with Cardizem as well as metoprolol. Continue with aspirin and Plavix Qualifiers: Atrial fibrillation type: paroxysmal Qualified Code(s): I48.0 - Paroxysmal atrial fibrillation (8) COPD (chronic obstructive pulmonary disease) Current visit: No Status: Chronic Presently she appears stable we will continue with bronchodilators as well as oxygen titrating to maintain SPO2 greater than 92% Qualifiers: COPD type: unspecified COPD Qualified Code(s): J44.9 - Chronic obstructive pulmonary disease, unspecified (9) DVT prophylaxis Current visit: No Status: Acute Heparin subcutaneous Internal Medicine - H&P: HPI Chief complaint: SOB Admitted From: Emergency Dept Plans for Post Hospital Care: Home History of present illness: Ms. Wong is a 71 year old female past medical history of lung cancer with right lobectomy COPD with oxygen use at night CAD with 5 stents paroxysmal A. fib and diastolic heart failure. Patient did complete radiation treatment for lung cancer and takes Tarceva daily According to the patient over the past 2 days she has been experiencing increasing shortness of breath on exertion as well as cough with contusional clear/yellow sputum production. She denies any fevers or chills or chest pain She does admit to lower extremity edema as well as utilizing oxygen during the day. She became concerned when she noted her fingers and lips started turning blue and went to her primary care physician who advised her to go to the ER for evaluation. Upon initial presentation to the ER patient's SPO2 was 85% on room air. Chest x-ray was obtained which did show a left pleural effusion as well as CHF. Lab work was obtained which did show elevated BNP rest of lab work was unremarkable. Patient was given Lasix and she has been admitted for further workup evaluation. Presently patient is not improving respiratory distress or lung sounds are clear at this time sats are stable on 2 L nasal cannula. I did review this case with Dr. Mata who agrees with plan. Past Med Surg Social Fam HX - Past Medical History Medical history: atrial fibrillation, cancer, COPD, GERD, myocardial infarction , seizures Psychiatric history: anxiety, depression - Past Surgical History Surgical History: angioplasty/stent, cancer surgery, cholecystectomy - Social History Smoking Status: Former smoker Smokeless Tobacco Status: No Alcohol use: none Drug use: none - Family History Mother Hx Family Cardiac Disorders: Yes Father Hx Family Cardiac Disorders: Yes Internal Medicine - H&P: Meds Albuterol Neb [Proventil Neb] 2.5 mg IH Q4HR 05/21/15 [History] Aspirin [Adult Low Dose Aspirin EC] 81 mg PO DAILY 05/21/15 [History] Calcium Carbonate [Tums] 500 mg PO DAILY 05/21/15 [History] Docusate [Colace] 100 mg PO BID 05/21/15 [History] Oxygen 1 each .ROUTE AD 10/28/16 [History] Clopidogrel [Plavix] 75 mg PO DAILY #30 tablet 01/13/17 [Rx] HYDROcodone/Acet 5/325 mg [[place] 5-325 mg] 1 tab PO TID #90 tab 02/09/17 [Rx] Ranitidine HCl [Zantac] 150 mg PO BID #180 tablet 02/10/17 [Rx] Erlotinib HCl [Tarceva] 100 mg PO DAILY 30 Days tablet 02/26/17 [Rx] Atorvastatin [Lipitor] 40 mg PO DAILY 03/19/17 [History] Furosemide [Lasix] 40 mg PO DAILY #90 tablet 04/19/17 [Rx] Folic Acid 1 mg PO DAILY #90 tablet 05/06/17 [Rx] Pantoprazole Sodium [Protonix] 40 mg PO DAILY 05/11/17 [History] Diltiazem CD (24hr) [Cardizem CD] 120 mg PO DAILY #30 cap.er.24h 05/15/17 [Rx] Ferrous Sulfate 325 mg PO BID #60 tablet 05/15/17 [Rx] Metoprolol XL (24 HR) Succ [Toprol Xl] 50 mg PO DAILY #30 tab.er.24h 05/15/17 [ Rx] Gabapentin [Neurontin] 600 tab PO BID 06/16/17 [History] 3 Allergy/AdvReac Type Severity Reaction Status Date / Time No Known Allergies Allergy Verified 03/19/17 09:01 All Systems PM: A 10-system review of systems was performed and is negative for pertinent findings except as documented above in the HPI. - Constitutional Constitutional: no chills, no fever(s), no night sweats - EENT Eyes: no change in vision, no discharge, no pain, no photophobia Nose, mouth and throat: no dysphagia, no nasal discharge, no neck pain, no sore throat - Cardiovascular Cardiovascular ROS IM: no chest pain, no diaphoresis, no dyspnea, no lightheadedness, no palpitations, no syncope - Respiratory Respiratory: cough, dyspnea on exertion - Gastrointestinal Gastrointestinal: no abdominal pain, no diarrhea, no hematemesis, no hematochezia, no melena, no nausea, no vomiting - Genitourinary Genitourinary: no change in urinary stream, no dysuria, no flank pain, no hematuria - Musculoskeletal Musculoskeletal ROS IM: no numbness, no tingling - Neurological Neurological ROS: no confusion, no convulsions, no focal weakness, no numbness, no tingling, no tremor(s) - Hematologic/Lymphatic Hematologic/Lymphatic: no easy bruising - Constitutional Vitals: Temp Pulse Resp BP Pulse Ox 97.7 F 82 18 125/84 85 06/16/17 16:36 06/16/17 14:54 06/16/17 16:36 06/16/17 16:36 06/16/17 14:54 General appearance: Present: A&O X 3 - Head Head exam: Present: atraumatic, normocephalic - Eye Eye exam: Present: PERRL, conjuntiva pink, sclera anicteric Pupils: Present: PERRL - Neck Neck exam general surgery: Present: supple, trachea midline. Absent: lymphadenopathy - Respiratory Respiratory exam: Present: CTAB. Absent: accessory muscle use, rales, rhonchi, wheezes - Cardiovascular Cardiovascular exam: Present: RRR, +S1, +S2. Absent: diastolic murmur, gallop, rubs, systolic murmur - GI/Abdominal GI/Abdominal exam: Present: normal bowel sounds, soft, no peritoneal signs. Absent: distended, tenderness - Extremities Exam Extremities exam: Present: warm, radial pulses palpable and symmetrical. Absent : calf tenderness, cyanotic, pedal edema - Neurological Exam Neurological exam: Present: CN II-XII intact, oriented X3, no focal deficits. Absent: pronater drift, facial droop, speech deficit - Skin Skin exam: Present: dry, intact Internal Med - H&P Results - Labs CBC & Chem 7: 06/16/17 13:47 06/16/17 13:47 - Diagnostic Studies Other Images Additional comments: Head CT 06/16/17 13:18 IMPRESSION: No acute intracranial abnormality. D/ / Idris Guan MD / Idris Guan MD Interpreting Provider: Idris Guan MD Chest X-Ray 06/16/17 13:19 IMPRESSION: Findings suggest congestive heart failure with a left-sided pleural effusion status post right pneumonectomy D/ / Santos Johnson MD / Santos Johnson MD Interpreting Provider: Santos Johnson MD
[2017-06-16] MEDS: Albuterol 2.5 MG/3 ML NEBULIZER IH SCH (20:09)
[2017-06-16] MEDS: Gabapentin 300 MG CAPSULE PO SCH (21:52)
[2017-06-16] MEDS: Famotidine 20 MG TABLET PO SCH (21:52)
[2017-06-16] MEDS: *HR* HYDROcodone/Acet 5/325 mg TABLET PO SCH (21:52)
[2017-06-16] MEDS: Furosemide 40 MG/4 ML VIAL IVP SCH (21:53)
[2017-06-17] MEDS: Albuterol 2.5 MG/3 ML NEBULIZER IH SCH ×7 (00:04→23:13)
[2017-06-17 01:31] LABS: Basophils % 0.4 %; Eosinophils # 0.1 K/mcL (0.0-0.6); Eosinophils % 0.7 %; Hematocrit 29.1 % (35.3-44.9); Hemoglobin 8.6 g/dL (11.5-15.4); Immature Granulocytes % 0.4 % (0-4); Lymphocytes # 2.1 K/mcL (0.6-4.6); Lymphocytes % 24.4 %; Mean Corpuscular HGB Conc 29.6 g/dL (31.6-35.5); Mean Corpuscular Hemoglobin 21.6 pg (28.0-33.3); Mean Corpuscular Volume 73.1 fL (83.0-100.0); Mean Platelet Volume 9.7 fL (9.4-12.4); Monocytes % 12.1 %; Neutrophils # 5.2 K/mcL (1.6-8.9); Platelet Count 276 K/mcL (140-400); Red Blood Count 3.98 M/mcL (3.82-4.97); Red Cell Distribution Width 19.9 % (11.5-14.5)
[2017-06-17 01:47] LABS: Calcium 7.9 mg/dL (8.6-10.8); Magnesium 1.5 mg/dL (1.6-2.6); Potassium 3.4 mEq/L (3.5-4.5)
[2017-06-17] MEDS ORDERED: 0.9 % Sodium Chloride 500 ML IVC ONE (04:33)
[2017-06-17] MEDS ORDERED: 0.9 % Sodium Chloride 500 ML ONE (04:35)
[2017-06-17] MEDS: *HR* Heparin 5,000 UNIT/ML VIAL SQ SCH ×2 (05:28→18:27)
[2017-06-17] MEDS ORDERED: *HR* Digoxin 0.5 MG/2 ML AMPUL IVP ONE (05:35)
--- NOTE | 2017-06-17 07:30 | Electrocardiograph Report ---
[place] Real Time Translation [facility] Test Date: 2017-06-16 Pat Name: Clara Wong Department: 103 Room: 2NE25 Gender: F Case Briefer: VENKATA : 1945 Requested By: Marlen Dover Order Number: [id number] Reading MD: Irma Loza DO Measurements Intervals [place] Rate: 99 P: [place]: 0 QRS: -10 QRSD: 90 T: 31 QT: 381 QTc: 437 Interpretive Statements ATRIAL FIBRILLATION ABNORMAL RHYTHM ECG Electronically Signed On 06-17-2017 7:28:56 EST by Irma Loza DO
[2017-06-17] MEDS ORDERED: Magnesium Sulfate 1 GM in 0.9 % Sodium Chloride 50 ML IVPB ONE ×2 (08:07→09:15)
[2017-06-17] MEDS ORDERED: ERLOTINIB HCL 100 MG PO SCH (09:00)
[2017-06-17] MEDS ORDERED: Metoprolol XL (24 HR) Succ 50 MG TAB.ER.24H PO SCH (09:00)
[2017-06-17] MEDS: Furosemide 40 MG/4 ML VIAL IVP SCH (09:02)
[2017-06-17] MEDS: Gabapentin 300 MG CAPSULE PO SCH ×2 (09:02→22:13)
[2017-06-17] MEDS: Famotidine 20 MG TABLET PO SCH ×2 (09:02→22:13)
[2017-06-17] MEDS: Aspirin Enteric Coated 81 MG Tablet PO SCH (09:02)
[2017-06-17] MEDS: Diltiazem CD (24hr) 120 MG CAPSULE PO SCH (09:02)
[2017-06-17] MEDS: Metoprolol XL (24 HR) Succ 50 MG TAB.ER.24H PO SCH (09:03)
[2017-06-17] MEDS: Folic Acid 1 MG TABLET PO SCH (09:03)
[2017-06-17] MEDS: *HR* HYDROcodone/Acet 5/325 mg TABLET PO SCH (09:03)
--- NOTE | 2017-06-17 10:16 | Event Note ---
Date of Encounter: 06/16/17 Time of Encounter: 17:00 Discussed with NILAY and agree with assessment and plan. Patient with acute on chronic respiratory failure secondary to acute on chronic diastolic heart failure Continue IV diuresis
--- NOTE | 2017-06-17 13:26 | Cardiology Consult Note ---
<Santos Bailey - Last Filed: 06/17/17 16:06> Date of Encounter: 06/17/17 Time of Encounter: 13:26 Assessment and Plan (1) Congestive heart failure Current Visit: Yes Status: Acute Heart failure with preserved ejection fraction, acute exacerbation in setting of AFib RVR Patient has evidence of volume overload on physical exam, however lungs are CTAB Echo 05/28 shows LVEF 60% with indeterminate diastolic function CXR right pleural effusion, BNP 1835, Fluid Balance +680, SCr 1.19 Currently on ASA, BB, Statin Recommend continued strict I/O + Daily weights, Fluid restriction to 1500mL qd, cardiac diet Gentle diuresis is recommended We will continue to follow. 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 All questions were answered. Thank you for involving us in the care of your patient. Please call with any questions. History of Present Illness Consult date: 06/17/17 Requesting physician: Sarah Adams Consult reason: CHF Exacerbation Chief complaint: Shortness of breath History of present illness: Ms. Wong is a 71 year old female with history of COPD requiring nighttime O2, CHFpEF, AFib, Lung cancer s/p Right lower lobectomy, CAD s/p 5 stents presents to the ED with 3 day history of worsening shortness of breath on exertion. She is accompanied by daughter and sister who corroborate her story. The patient says that about 3 days ago she started experiencing worsening shortness of breath that was particularly bad with exertion, but improved with rest. Associated with these symptoms, the patient has had increased cough with sputum production that is either white or yellow in color. She has experienced increased swelling in her legs b/l. Over the past day her family began to notice blue discoloration of the lips and fingertips and encouraged her to come to the hospital. The patient denies chest pains, orthopnea, PND. She says that she has not noticed fevers, chills, sweats. She denies palpitations, however she does admit to noticing rapid heart rate more often. In the ED the patient was found to be febrile with leukocytosis and hypotension. She was additionally noted to be hypoxic on room air. CXR showed R pleural effusion, BNP 1835, troponin mildly positive however adynamic and trending down. She was found to have LEODAN after admission. Past Med Surg Social Fam HX - Past Medical History Medical history: atrial fibrillation, cancer, COPD, GERD, myocardial infarction , seizures Psychiatric history: anxiety, depression - Past Surgical History Surgical History: angioplasty/stent, cancer surgery, cholecystectomy - Social History Smoking Status: Former smoker Smokeless Tobacco Status: No Alcohol use: none Drug use: none - Family History Mother Hx Family Cardiac Disorders: Yes Father Hx Family Cardiac Disorders: Yes Medications and Allergies Albuterol Neb [Proventil Neb] 2.5 mg IH Q4HR 05/21/15 [History] Aspirin [Adult Low Dose Aspirin EC] 81 mg PO DAILY 05/21/15 [History] Calcium Carbonate [Tums] 500 mg PO DAILY 05/21/15 [History] Docusate [Colace] 100 mg PO BID 05/21/15 [History] Oxygen 1 each .ROUTE AD 10/28/16 [History] Clopidogrel [Plavix] 75 mg PO DAILY #30 tablet 01/13/17 [Rx] HYDROcodone/Acet 5/325 mg [[place] 5-325 mg] 1 tab PO TID #90 tab 02/09/17 [Rx] Ranitidine HCl [Zantac] 150 mg PO BID #180 tablet 02/10/17 [Rx] Erlotinib HCl [Tarceva] 100 mg PO DAILY 30 Days tablet 02/26/17 [Rx] Atorvastatin [Lipitor] 40 mg PO DAILY 03/19/17 [History] Furosemide [Lasix] 40 mg PO DAILY #90 tablet 04/19/17 [Rx] Folic Acid 1 mg PO DAILY #90 tablet 05/06/17 [Rx] Pantoprazole Sodium [Protonix] 40 mg PO DAILY 05/11/17 [History] Diltiazem CD (24hr) [Cardizem CD] 120 mg PO DAILY #30 cap.er.24h 05/15/17 [Rx] Ferrous Sulfate 325 mg PO BID #60 tablet 05/15/17 [Rx] Metoprolol XL (24 HR) Succ [Toprol Xl] 50 mg PO DAILY #30 tab.er.24h 05/15/17 [ Rx] Gabapentin [Neurontin] 600 tab PO BID 06/16/17 [History] 3 Allergy/AdvReac Type Severity Reaction Status Date / Time No Known Allergies Allergy Verified 03/19/17 09:01 All Systems Review: A 10-system review of systems was performed and is negative for pertinent findings except as documented above in the HPI. - Constitutional Constitutional: fatigue, malaise, no anorexia, no chills, no daytime sleepiness , no fever(s), no night sweats, no stops breathing during sleep - EENT Eyes: no blurred vision, no loss of vision - Cardiovascular Cardiovascular: as per HPI, dyspnea on exertion, irregular heart rhythm, rapid heart rate, no chest pain at rest, no chest pain with exertion, no diaphoresis, no dyspnea at rest, no orthopnea, no palpitations, no paroxysmal nocturnal dyspnea, no syncope - Respiratory Respiratory: cough, dyspnea, no hemoptysis, no wheezing - Gastrointestinal Gastrointestinal: no abdominal pain - Genitourinary Genitourinary: no dysuria, no hematuria - Musculoskeletal Musculoskeletal: no muscle weakness, no myalgias - Integumentary Integumentary: no erythema, no rash - Neurological Neurological: no abnormal speech, no focal weakness, no loss of vision - Psychiatric Psychiatric: no anxiety, no depression, no hallucinations Physical Examination Vital Signs, Last 4 Hours Temp Pulse Resp BP Pulse Ox 06/17/17 11:31 99.1 F 140 18 114/89 89 General: Conversant, No Apparent Distress HEENT: Atraumatic, Normocephaly, Mucus Membranes Moist Neck: No JVD, Normal carotid pulses Cardiac: Normal S1 and S2, No Murmur, Other (Rapid irregular hr, distant heart sounds) Lungs: Normal Breath Sounds, No Wheeze, Rales, Rhonchi, Other (diminished in right LL consistent with RLLobectomy) Neuro: Alert and responsive, No focal deficits noted Abdomen: Soft, Non-Tender Skin: No rashes noted on visualized skin Musculoskeletal: No Chest Wall Tenderness Extremities: No Clubbing, No Cyanosis, Normal Pulses, Other (2+ LE edema b/l) Results 06/17/17 01:07 06/17/17 01:07 Lab Results 06/16/17 06/17/17 06/17/17 19:33 01:07 01:07 WBC 8.4 Hgb 8.6 L Hct 29.1 L Plt Count 276 Sodium Potassium Chloride Carbon Dioxide BUN Creatinine Glucose Calcium Magnesium Troponin I 0.04 H* 0.03 06/17/17 06/17/17 01:07 01:07 WBC Hgb Hct Plt Count Sodium 136 Potassium 3.4 L Chloride 98 Carbon Dioxide 26 BUN 19 Creatinine 1.19 H Glucose 135 H Calcium 7.9 L Magnesium 1.5 L Troponin I 0.03 - Imaging and Cardiology Chest Xray: report reviewed, image reviewed Consult Discharge Plan - Plan Referrals: Senait Wong CATH LAB [Primary Care Provider] - 06/24/17 10:00 am <Liane Gomez - Last Filed: 06/18/17 12:51> Date of Encounter: 06/18/17 - Attending Attestation I examined this patient and my medical decision-making was reviewed with the Resident Physician. I agree with the documented findings, disposition and treatment plan as described except to the extent set forth below. 71 YOF with h/o CAD s/p PCI of CIRC 09/2016 currently with a EF 60% no RWMA but mild volume overload. Agree with gentle diuresis and rate control of afib. Not candidate for AC for stroke risk reduction due to mets to the brain. Likely CHFpEF, continue above meds. Assessment and Plan Discussion w patient/family: The assessment and plan as outlined above was discussed with the patient and/or family members who expressed understanding and agreement. All questions were answered. Thank you for involving us in the care of your patient. Please call with any questions. History of Present Illness History of present illness: Ms. Wong is a 71 year old female All Systems Review: A 10-system review of systems was performed and is negative for pertinent findings except as documented above in the HPI. Physical Examination Vital Signs, Last 4 Hours Temp Pulse Resp BP Pulse Ox 06/18/17 11:00 99.9 F H 125 20 101/67 98 Results 06/18/17 06:38 06/18/17 06:38 Lab Results 06/18/17 06/18/17 06:38 06:38 WBC 10.3 Hgb 9.1 L Hct 30.8 L Plt Count 266 Sodium 137 Potassium 3.8 Chloride 97 L Carbon Dioxide 27 BUN 19 Creatinine 1.08 Glucose 86 Calcium 8.2 L Magnesium 1.7
--- NOTE | 2017-06-17 13:51 | Internal Med Progress Note ---
Date of Encounter: 06/17/17 Time of Encounter: 13:15 - Assessment and plan (1) Atrial fibrillation with RVR Current Visit: No Status: Acute Assessment and plan: noted to be in AFIB with RVR today despite receiving her home dose of Cardizem and Metoprolol received Cardizem 10mg IVP x 2 doses, rate controlled will closely monitor cardiology evaluation requested pt not on anticoagulation due to history of metastatic disease to the brain continue ASA, Plavix (2) Acute on chronic heart failure Current Visit: No Status: Acute Assessment and plan: Acute respiratory distress secondary to CHF decompensation Pt reports of using home oxygen only at night Will decrease Diuretic dose given LEODAN Lasix 20mg IV qd monitor daily weights, strict I/Os fluid restriction diet O2 supplementation as needed Qualifiers: Heart failure type: diastolic Qualified Code(s): I50.33 - Acute on chronic diastolic (congestive) heart failure (3) LEODAN (acute kidney injury) Current Visit: Yes Status: Acute Assessment and plan: likely secondary to diuretic therapy and hypotension decreased Lasix dose hold antihypertensive agents for SBP<100 will closely monitor renal function (4) Anemia Current Visit: No Status: Chronic Assessment and plan: H&H low but acceptable no acute bleeding reported continue to monitor Qualifiers: Anemia type: iron deficiency Iron deficiency anemia type: other iron deficiency Qualified Code(s): D50.8 - Other iron deficiency anemias (5) Hypertension Current Visit: No Status: Chronic Assessment and plan: BP within acceptable range continue home meds hold antihypertensive meds for SBP<100 closely monitor BP Qualifiers: Hypertension type: essential hypertension Qualified Code(s): I10 - Essential (primary) hypertension (6) Non-small cell lung cancer Current Visit: No Status: Chronic Qualifiers: Laterality: left Qualified Code(s): C34.92 - Malignant neoplasm of unspecified part of left bronchus or lung (7) DVT prophylaxis Current Visit: No Status: Acute Assessment and plan: Heparin SQ (8) Fever Current Visit: Yes Status: Acute Assessment and plan: Pt reported to have low grade fever NO leukocytosis present CXR negative for any infectious etiology awaiting UA, blood culture reports Tylenol prn fever pt reported of having diarrhea, will obtain stool studies will continue to closely monitor Qualifiers: Fever type: unspecified Qualified Code(s): R50.9 - Fever, unspecified - Subjective Interval history: Patient seen and examined with family present at bedside. Pt AAO x 3 and able to provide history however as per family, she appears to be slow to response from her baseline. she is noted to have low grade temps and has Afib with RVR. She received 2 dose of Cardizem 10mg IVP with rate control. She was noted to be hypotensive overnight which has resolved Also reports of having diarrhea, however no episodes reported today Also having difficulty urinating, will obtain a bladder scan, and will place walker cath if needed. - Constitutional Vitals: Temp Pulse Resp BP Pulse Ox 99.1 F 140 18 114/89 89 06/17/17 11:31 06/17/17 11:31 06/17/17 11:31 06/17/17 11:31 06/17/17 11:31 General appearance: Present: A&O X 3 (frail appearing female ), no acute distress - Head Head exam: Present: atraumatic, normocephalic - Eye Eye exam: Present: conjuntiva pink, sclera anicteric - Respiratory Respiratory exam: Absent: respiratory distress, wheezes (bibasilar crackles, decreased breath sounds on right) - Cardiovascular Cardiovascular exam: Present: irregular rhythm, +S1, +S2, tachycardia - GI/Abdominal GI/Abdominal exam: Present: normal bowel sounds, soft, no peritoneal signs. Absent: distended, tenderness - Extremities Exam Extremities exam: Present: pedal edema (pitting edema in b/l LE ), warm, radial pulses palpable and symmetrical. Absent: calf tenderness - Neurological Exam Neurological exam: Present: alert, oriented X3 Internal Medicine: Result - Labs CBC & Chem 7: 06/17/17 01:07 06/17/17 01:07 Labs: Short CBC 06/17/17 Range/Units 01:07 WBC 8.4 (4.3-11.1) K/mcL Hgb 8.6 L (11.5-15.4) g/dL Hct 29.1 L (35.3-44.9) % Plt Count 276 (140-400) K/mcL Neutrophils # 5.2 (1.6-8.9) K/mcL BMP 06/17/17 01:07 Sodium 136 Potassium 3.4 L Chloride 98 Carbon Dioxide 26 BUN 19 Creatinine 1.19 H Glucose 135 H Calcium 7.9 L Cardiac Enzymes 06/16/17 06/17/17 06/17/17 Range/Units 19:33 01:07 01:07 Troponin I 0.04 H* 0.03 0.03 (0-0.03) ng/mL Consult Discharge Plan - Plan Referrals: Senait Wong, PLANT AND EQUIPMENT WORKER [Primary Care Provider] -
[2017-06-17 15:34] LABS: Bilirubin,Urine Negative (Negative); Blood,Urine Negative (Negative); Clarity,Urine Clear (Clear); Color,Urine Yellow (Yellow); Glucose,Urine (UA) Normal (Normal); Ketones,Urine Negative (Negative); Leukocyte Esterase,Urine Negative (Negative); Nitrite,Urine Negative (Negative); PH,Urine 6.5 pH Units (5.0-8.0); Protein,Urine Negative (Neg-Trace); Specific Gravity,Urine 1.013 (1.010-1.025); Urobilinogen,Urine Normal (Normal)
[2017-06-17] MEDS: Acetaminophen 325 MG TABLET PO PRN (16:15)
[2017-06-17] MEDS: ERLOTINIB HCL 100 MG PO SCH (16:19)
--- NOTE | 2017-06-17 18:57 | Electrocardiograph Report ---
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
[2017-06-18] MEDS: Albuterol 2.5 MG/3 ML NEBULIZER IH SCH ×6 (04:08→23:12)
[2017-06-18] MEDS: *HR* Heparin 5,000 UNIT/ML VIAL SQ SCH ×2 (05:55→19:12)
[2017-06-18 07:30] LABS: Basophils % 0.3 %; Hemoglobin 9.1 g/dL (11.5-15.4)
[2017-06-18 07:32] LABS: Eosinophils % 0.1 %; Hematocrit 30.8 % (35.3-44.9); Immature Granulocytes % 0.4 % (0-4); Lymphocytes # 1.5 K/mcL (0.6-4.6); Lymphocytes % 14.9 %; Mean Corpuscular HGB Conc 29.5 g/dL (31.6-35.5); Mean Corpuscular Hemoglobin 21.7 pg (28.0-33.3); Mean Corpuscular Volume 73.5 fL (83.0-100.0); Mean Platelet Volume 10.2 fL (9.4-12.4); Monocytes # 1.1 K/mcL (0.0-1.3); Monocytes % 10.9 %; Neutrophils # 7.6 K/mcL (1.6-8.9); Platelet Count 266 K/mcL (140-400); Red Blood Count 4.19 M/mcL (3.82-4.97); Red Cell Distribution Width 20.4 % (11.5-14.5); Segmented Neutrophils % 73.4 %
[2017-06-18 07:44] LABS: BUN/Creatinine Ratio 18 (6-26); Blood Urea Nitrogen 19 mg/dL (7-20); Calcium 8.2 mg/dL (8.6-10.8); Carbon Dioxide 27 mEq/L (19-29); Chloride 97 mEq/L (98-109); Glucose 86 mg/dL (70-99); Magnesium 1.7 mg/dL (1.6-2.6); Osmolality,Calculated 286 (280-300); Phosphorous 2.6 mg/dL (2.3-4.7); Potassium 3.8 mEq/L (3.5-4.5); Sodium 137 mEq/L (136-145); eGFR For African Americans > 60 (> 60); eGFR For Non-African Americans 50 (> 60)
[2017-06-18 08:34] LABS: Anisocytosis 1+ (Not Present); Hypochromasia Present (Not Present); Platelet Estimate Normal (Normal)
[2017-06-18] MEDS ORDERED: Furosemide 20 MG/2 ML VIAL IVP SCH (09:00)
[2017-06-18] MEDS: Famotidine 20 MG TABLET PO SCH (09:16)
[2017-06-18] MEDS: Gabapentin 300 MG CAPSULE PO SCH (09:16)
[2017-06-18] MEDS: Folic Acid 1 MG TABLET PO SCH (09:16)
[2017-06-18] MEDS: Aspirin Enteric Coated 81 MG Tablet PO SCH (09:16)
[2017-06-18] MEDS: Diltiazem CD (24hr) 120 MG CAPSULE PO SCH (09:17)
[2017-06-18] MEDS: Metoprolol XL (24 HR) Succ 50 MG TAB.ER.24H PO SCH (09:17)
--- NOTE | 2017-06-18 10:08 | Cardiology Progress Note ---
<Santos Bailey - Last Filed: 06/18/17 13:26> Date of Encounter: 06/18/17 Time of Encounter: 09:00 Assessment and Plan (1) Congestive heart failure Current Visit: Yes Status: Acute Heart failure with preserved ejection fraction, acute exacerbation in setting of AFib RVR Echo 05/28 shows LVEF 60% with indeterminate diastolic function CXR right pleural effusion, BNP 1835, Fluid Balance +30, SCr 1.08 Currently on ASA, BB, Statin. Recommend continued strict I/O + Daily weights, Fluid restriction to 1500mL qd,cardiac diet Gentle diuresis is recommended Currently, the patient's primary problem appears to be related to esophageal spasm or GI concern There is significant concern for Aspiration, which could further exacerbate respiratory and AFib status Patient appears to be in sinus rhythm per monitor. We will get a 12-lead EKG to confirm Manage co-morbid risk factors, no further recommendations at this time Cardiology will sign off. 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 All questions were answered. Thank you for involving us in the care of your patient. Please call with any questions. Subjective Principal diagnosis: CHF Interval history: The patient is acutely distressed at the time of exam due to throat/chest pain with acute onset when trying to swallow food and pills. Objective Vital Signs, Last 4 Hours Temp Pulse Resp BP Pulse Ox 06/18/17 07:38 18 96 06/18/17 07:21 99.1 F 103 18 98/59 93 General: Other (Acute distress with apparent esophageal pain. Agitated affect) HEENT: Atraumatic, Normocephaly, Mucus Membranes Moist Neck: No JVD, Normal carotid pulses Cardiac: Normal S1 and S2, No Murmur, Other (Faint, irregular ) Lungs: Normal Breath Sounds, Other (Coarse lung sounds b/l, gurgling heard during inspiration w/o stethoscope) Neuro: Alert and responsive, No focal deficits noted Abdomen: Soft, Non-Tender Skin: No rashes noted on visualized skin Musculoskeletal: No Chest Wall Tenderness Extremities: No Clubbing, No Cyanosis, Normal Pulses, Other (Trace pedal edema) Results 06/18/17 13:08 06/18/17 06:38 Lab Results 06/18/17 06/18/17 06:38 06:38 WBC 10.3 Hgb 9.1 L Hct 30.8 L Plt Count 266 Sodium 137 Potassium 3.8 Chloride 97 L Carbon Dioxide 27 BUN 19 Creatinine 1.08 Glucose 86 Calcium 8.2 L Magnesium 1.7 Consult Discharge Plan - Plan Instructions: Heart Failure (DC), Atrial Fibrillation (DC), Pacemaker (DC), Acute Respiratory Distress Syndrome (DC), Anemia (GEN), Pneumonia (DC) Referrals: Senait Wong RECRUITER ACCOUNT MANAGER [Primary Care Provider] - 06/24/17 10:00 am <Liane Gomez - Last Filed: 06/18/17 15:51> Date of Encounter: 06/18/17 Assessment and Plan (1) Atrial fibrillation Current Visit: No Status: Acute NSR on monitor today, continue CCB and BB. Unable to start AC for brain mets. On ASA and Plavix. Multiple underlying comorbidities likely contributing to her resistant afib. Qualifiers: Atrial fibrillation type: paroxysmal Qualified Code(s): I48.0 - Paroxysmal atrial fibrillation Discussion w patient/family: The assessment and plan as outlined above was discussed with the patient and/or family members who expressed understanding and agreement. All questions were answered. Thank you for involving us in the care of your patient. Please call with any questions. Objective Vital Signs, Last 4 Hours Temp Pulse Resp BP Pulse Ox 06/18/17 15:00 100.3 F H 87 18 91/57 100 06/18/17 12:46 18 10 Results 06/18/17 13:08 06/18/17 06:38 Lab Results 06/18/17 06/18/17 06/18/17 06:38 06:38 13:08 WBC 10.3 8.7 Hgb 9.1 L 8.9 L Hct 30.8 L 30.0 L Plt Count 266 257 Sodium 137 Potassium 3.8 Chloride 97 L Carbon Dioxide 27 BUN 19 Creatinine 1.08 Glucose 86 Calcium 8.2 L Magnesium 1.7
[2017-06-18 12:46] LABS: ABG Base Excess 9 mEq/L (-2 to 3); ABG HCO3 33 mEq/L (21-27); ABG Oxygen Saturation 99 % (95-98); ABG PCO2 45 mmHg (35-45); ABG PH 7.48 pH Units (7.32-7.45); ABG PO2 127 mmHg (85-104); ABG TCO2 35 mEq/L (20-26)
[2017-06-18 13:17] LABS: Basophils % 0.2 %; Hemoglobin 8.9 g/dL (11.5-15.4); Immature Granulocytes % 0.5 % (0-4); Lymphocytes # 1.5 K/mcL (0.6-4.6); Mean Corpuscular HGB Conc 29.7 g/dL (31.6-35.5); Mean Corpuscular Hemoglobin 21.5 pg (28.0-33.3); Mean Corpuscular Volume 72.5 fL (83.0-100.0); Mean Platelet Volume 9.2 fL (9.4-12.4); Monocytes # 0.9 K/mcL (0.0-1.3); Monocytes % 10.2 %; Neutrophils # 6.3 K/mcL (1.6-8.9); Platelet Count 257 K/mcL (140-400); Red Blood Count 4.14 M/mcL (3.82-4.97); Segmented Neutrophils % 72.1 %
[2017-06-18] MEDS: Vancomycin 750 MG in D5% in Water 250 ML IVPB SCH (14:05)
[2017-06-18] MEDS ORDERED: Piperacillin/Tazobactam 3.375 GM/200 ML BAG IVPB SCH (15:00)
--- NOTE | 2017-06-18 16:52 | Internal Med Progress Note ---
Date of Encounter: 06/18/17 Time of Encounter: 10:05 - Assessment and plan (1) Change in mental state Current Visit: Yes Status: Acute Assessment and plan: Of unclear etiology concern for infectious etiology contributing to the acute change in mental status Started empiric IV abx for aspiration PNA CT head and CXR reported no acute abnormalities will continue to closely monitor Qualifiers: Altered mental status type: somnolence Qualified Code(s): R40.0 - Somnolence (2) Atrial fibrillation with RVR Current Visit: No Status: Acute Assessment and plan: Rate controlled with BB and Cardizem pt not on anticoagulation due to history of metastatic disease to the brain continue ASA, Plavix (3) Acute on chronic heart failure Current Visit: No Status: Acute Assessment and plan: Acute respiratory distress secondary to CHF decompensation Respiratory status at baseline however given metabolic alkalosis, will hold Lasix dose today monitor daily weights, strict I/Os fluid restriction diet O2 supplementation as needed Qualifiers: Heart failure type: diastolic Qualified Code(s): I50.33 - Acute on chronic diastolic (congestive) heart failure (4) LEODAN (acute kidney injury) Current Visit: Yes Status: Resolved Assessment and plan: Resolved hold antihypertensive agents for SBP<100 will closely monitor renal function (5) Anemia Current Visit: No Status: Chronic Assessment and plan: H&H low but acceptable no acute bleeding reported continue to monitor Qualifiers: Anemia type: iron deficiency Iron deficiency anemia type: other iron deficiency Qualified Code(s): D50.8 - Other iron deficiency anemias (6) Hypertension Current Visit: No Status: Chronic Assessment and plan: BP within acceptable range continue home meds hold antihypertensive meds for SBP<100 closely monitor BP Qualifiers: Hypertension type: essential hypertension Qualified Code(s): I10 - Essential (primary) hypertension (7) Non-small cell lung cancer Current Visit: No Status: Chronic Qualifiers: Laterality: left Qualified Code(s): C34.92 - Malignant neoplasm of unspecified part of left bronchus or lung (8) DVT prophylaxis Current Visit: No Status: Acute Assessment and plan: Heparin SQ (9) Fever Current Visit: Yes Status: Acute Assessment and plan: started on empiric IV abx for concern for aspiration PNA no recurrent episode of diarrhea reported blood cultures prelim report no growth (10) Aspiration pneumonia Current Visit: Yes Status: Acute Assessment and plan: as listed above Qualifiers: Aspiration pneumonia type: unspecified Laterality: unspecified laterality Lung location: unspecified part of lung Qualified Code(s): J69.0 - Pneumonitis due to inhalation of food and vomit - Subjective Interval history: Patient seen and examined by me numerous times throughout the day Patient is noted to be lethargic, arousable but lethargic. Family present at bedside. This morning she was noted to have concerns for aspiration while eating breakfast due to which speech therapy was consulted. However due to patient's lethargic mental status, stat ABG was done, which showed metabolic alkalosis with respiratory compensation. Her lasix dose and all sedative agents were placed on hold. CT head was negative for any acute abnormalities and CXR was negative for any acute cardiopulmonary process. Given concern for aspiration PNA and low grade fever, along with depressed mental status, pt was started on empiric IV abx for aspiration PNA. Her mental status improved throughout the day and she was able to participate with speech therapy. Diet was changed as per speech therapist's recommendations. Vitals and labs remained within acceptable range As per family, pt recently underwent EGD and was found to have low grade esophagitis and superficial esophageal ulcer was found. Pt was started on Carafate, PPI, and repeat EGD was recommended in 6 weeks. Family was updated numerous times throughout the day about patient's test results and management plan. All questions were answered. Of note: pt was noted to be retaining urine due to which walker cath was placed yesterday. - Constitutional Vitals: Temp Pulse Resp BP Pulse Ox 100.3 F H 87 18 91/57 98 06/18/17 15:00 06/18/17 15:00 06/18/17 16:07 06/18/17 15:00 06/18/17 16:07 General appearance: Present: A&O X 0 (lethargic ) - Head Head exam: Present: atraumatic, normocephalic - Eye Eye exam: Present: conjuntiva pink, sclera anicteric - Respiratory Respiratory exam: Absent: respiratory distress, wheezes (coarse breath sounds ) - Cardiovascular Cardiovascular exam: Present: RRR, +S1, +S2. Absent: diastolic murmur, gallop, rubs, systolic murmur - GI/Abdominal GI/Abdominal exam: Present: normal bowel sounds, soft, no peritoneal signs. Absent: distended, tenderness - Extremities Exam Extremities exam: Present: warm, radial pulses palpable and symmetrical. Absent : calf tenderness, cyanotic, pedal edema - Neurological Exam Neurological exam: Present: alert, oriented X3 - Psychiatric Psychiatric exam: Present: normal affect, normal mood Internal Medicine: Result - Labs CBC & Chem 7: 06/18/17 13:08 06/18/17 06:38 Labs: Short CBC 06/18/17 06/18/17 Range/Units 06:38 13:08 WBC 10.3 8.7 (4.3-11.1) K/mcL Hgb 9.1 L 8.9 L (11.5-15.4) g/dL Hct 30.8 L 30.0 L (35.3-44.9) % Plt Count 266 257 (140-400) K/mcL Neutrophils # 7.6 6.3 (1.6-8.9) K/mcL BMP 06/18/17 06:38 Sodium 137 Potassium 3.8 Chloride 97 L Carbon Dioxide 27 BUN 19 Creatinine 1.08 Glucose 86 Calcium 8.2 L - ABG Interpretation ABG results: ABG ABG pH 7.48 pH Units (7.32-7.45) H 06/18/17 12:41 ABG pCO2 45 mmHg (35-45) 06/18/17 12:41 ABG pO2 127 mmHg (85-104) H 06/18/17 12:41 ABG O2 Saturation 99 % (95-98) H 06/18/17 12:41 - Impressions Impressions Chest X-Ray 06/18/17 12:24 IMPRESSION: Stable right pneumonectomy changes. The left lung demonstrates no acute abnormality. D/ / 06/18/2017 13:51:37 Jan Carballo MD / mireille Interpreting Provider: Jan Carballo MD Head CT 06/18/17 12:26 IMPRESSION: No acute intracranial abnormality. Diffuse atrophic changes with findings suggesting chronic microvascular ischemia D/ / Santos Johnson MD / Santos Johnson MD Interpreting Provider: Santos Johnson MD Consult Discharge Plan - Plan Instructions: Heart Failure (DC), Atrial Fibrillation (DC), Pacemaker (DC), Acute Respiratory Distress Syndrome (DC), Anemia (GEN), Pneumonia (DC) Referrals: Senait Wong CNP [Primary Care Provider] - 06/24/17 10:00 am
[2017-06-18] MEDS: ERLOTINIB HCL 100 MG PO SCH (17:19)
[2017-06-18] MEDS: Piperacillin/Tazobactam 3.375 GM/200 ML BAG IVPB SCH (17:22)
[2017-06-18] MEDS ORDERED: Ipratropium/Albuterol Neb 3 ML IH ONE (19:45)
[2017-06-18] MEDS ORDERED: Furosemide 20 MG/2 ML VIAL IVP ONE (19:46)
[2017-06-18 20:29] LABS: ABG Base Excess 7 mEq/L (-2 to 3); ABG HCO3 32 mEq/L (21-27); ABG Oxygen Saturation 95 % (95-98); ABG PCO2 44 mmHg (35-45); ABG PH 7.47 pH Units (7.32-7.45); ABG PO2 69 mmHg (85-104); ABG TCO2 33 mEq/L (20-26)
[2017-06-18] MEDS ORDERED: Acetaminophen 650 MG RECTAL SUPP RC PRN (21:47)
[2017-06-19] MEDS: Piperacillin/Tazobactam 3.375 GM/200 ML BAG IVPB SCH ×4 (00:04→22:07)
[2017-06-19] MEDS ORDERED: 0.9 % Sodium Chloride 250 ML ONE ×2 (01:11→08:09)
[2017-06-19] MEDS ORDERED: 0.9 % Sodium Chloride 250 ML IVC ONE ×2 (01:19→01:53)
[2017-06-19 01:31] LABS: Basophils % 0.3 %; Eosinophils % 0.1 %; Hematocrit 25.3 % (35.3-44.9); Hemoglobin 7.4 g/dL (11.5-15.4); Immature Granulocytes % 0.3 % (0-4); Lymphocytes # 1.8 K/mcL (0.6-4.6); Lymphocytes % 20.5 %; Mean Corpuscular HGB Conc 29.2 g/dL (31.6-35.5); Mean Corpuscular Hemoglobin 21.1 pg (28.0-33.3); Mean Corpuscular Volume 72.1 fL (83.0-100.0); Mean Platelet Volume 9.6 fL (9.4-12.4); Monocytes # 1.3 K/mcL (0.0-1.3); Monocytes % 15.5 %; Neutrophils # 5.5 K/mcL (1.6-8.9); Platelet Count 220 K/mcL (140-400); Red Blood Count 3.51 M/mcL (3.82-4.97); Red Cell Distribution Width 19.9 % (11.5-14.5); Segmented Neutrophils % 63.3 %
[2017-06-19 01:34] LABS: BUN/Creatinine Ratio 18 (6-26); Blood Urea Nitrogen 17 mg/dL (7-20); Calcium 7.8 mg/dL (8.6-10.8); Carbon Dioxide 31 mEq/L (19-29); Chloride 97 mEq/L (98-109); Glucose 106 mg/dL (70-99); Magnesium 1.5 mg/dL (1.6-2.6); Osmolality,Calculated 280 (280-300); Phosphorous 2.5 mg/dL (2.3-4.7); Potassium 3.1 mEq/L (3.5-4.5); Sodium 134 mEq/L (136-145); eGFR For African Americans > 60 (> 60); eGFR For Non-African Americans 60 (> 60)
[2017-06-19] MEDS: Albuterol 2.5 MG/3 ML NEBULIZER IH SCH ×6 (03:42→23:37)
[2017-06-19] MEDS: *HR* Heparin 5,000 UNIT/ML VIAL SQ SCH (05:44)
[2017-06-19] MEDS ORDERED: Potassium Chloride 40 MEQ, Lidocaine 1% 2 ML in D5% in Water 500 ML IVPB ONE (07:51)
[2017-06-19] MEDS ORDERED: Magnesium Sulfate 1 GM in D5% in Water 100 ML IVPB ONE (07:51)
[2017-06-19] MEDS: 0.9 % Sodium Chloride 250 ML IVC ONE ×2 (08:15→12:58)
[2017-06-19] MEDS: Metoprolol XL (24 HR) Succ 50 MG TAB.ER.24H PO SCH (08:33)
[2017-06-19] MEDS: Diltiazem CD (24hr) 120 MG CAPSULE PO SCH (08:33)
[2017-06-19] MEDS: Aspirin Enteric Coated 81 MG Tablet PO SCH (08:43)
[2017-06-19] MEDS: Folic Acid 1 MG TABLET PO SCH (08:44)
--- NOTE | 2017-06-19 09:40 | Internal Med Progress Note ---
Date of Encounter: 06/19/17 Time of Encounter: 08:05 - Assessment and plan (1) Sepsis Current Visit: Yes Status: Acute Assessment and plan: Likely secondary to aspiration PNA hypotension can be secondary to volume depletion from diuretic use pt responding to IV fluids Critical care consultation requested will continue empiric IV abx NPO at this time f/u blood cultures f/u LA will continue to closely monitor If pt's hypotension persists despite IV fluid resuscitation, will transfer to ICU for vasopressor support Qualifiers: Sepsis type: sepsis due to unspecified organism Qualified Code(s): A41.9 - Sepsis, unspecified organism (2) Change in mental state Current Visit: Yes Status: Acute Assessment and plan: Of unclear etiology Improved from previous day AAO x 3 today concern for infectious etiology contributing to the acute change in mental status continue empiric IV abx for aspiration PNA CT head and CXR reported no acute abnormalities will continue to closely monitor Qualifiers: Altered mental status type: unspecified Qualified Code(s): R41.82 - Altered mental status, unspecified (3) Atrial fibrillation with RVR Current Visit: No Status: Acute Assessment and plan: Rate controlled with BB and Cardizem pt not on anticoagulation due to history of metastatic disease to the brain continue ASA, Plavix (4) Acute on chronic heart failure Current Visit: No Status: Acute Assessment and plan: Acute respiratory distress secondary to CHF decompensation Respiratory status at baseline monitor daily weights, strict I/Os fluid restriction diet O2 supplementation as needed holding Lasix given current BP readings Qualifiers: Heart failure type: diastolic Qualified Code(s): I50.33 - Acute on chronic diastolic (congestive) heart failure (5) LEODAN (acute kidney injury) Current Visit: Yes Status: Resolved Assessment and plan: Resolved hold antihypertensive agents for SBP<100 will closely monitor renal function (6) Anemia Current Visit: No Status: Chronic Assessment and plan: H&H low but acceptable no acute bleeding reported continue to monitor Qualifiers: Anemia type: iron deficiency Iron deficiency anemia type: other iron deficiency Qualified Code(s): D50.8 - Other iron deficiency anemias (7) Hypertension Current Visit: No Status: Chronic Assessment and plan: Remained hypotensive throughout the night responded to fluid challenges critical care consultation requested repeat BP improved continue to hold all antihypertensive medications at this time Qualifiers: Hypertension type: essential hypertension Qualified Code(s): I10 - Essential (primary) hypertension (8) Non-small cell lung cancer Current Visit: No Status: Chronic Qualifiers: Laterality: left Qualified Code(s): C34.92 - Malignant neoplasm of unspecified part of left bronchus or lung (9) DVT prophylaxis Current Visit: No Status: Acute Assessment and plan: Heparin SQ (10) Fever Current Visit: Yes Status: Acute Assessment and plan: continue empiric IV abx for concern for aspiration PNA no recurrent episode of diarrhea reported blood cultures prelim report no growth (11) Aspiration pneumonia Current Visit: Yes Status: Acute Assessment and plan: as listed above Qualifiers: Aspiration pneumonia type: unspecified Laterality: unspecified laterality Lung location: unspecified part of lung Qualified Code(s): J69.0 - Pneumonitis due to inhalation of food and vomit - Time Spent With Patient Greater than 35 minutes - Subjective Interval history: Patient seen and examined with family present at bedside. Patient's mental status improved, AAO x 3 and able to communicate. reports of feeling weak and tired Overnight patient remained hypotensive and tachycardic. Received 0.9%NS 250cc bolus x 2 with mild improvement in BP Additional 0.9%NS 250cc bolus given, Repeat BP improved to 98/69 Critical consultation requested for sepsis and concern for patient requiring vasopressor support. - Constitutional Vitals: Temp Pulse Resp BP Pulse Ox 98.3 F 92 17 74/39 94 06/19/17 08:00 06/19/17 08:00 06/19/17 08:21 06/19/17 08:00 06/19/17 08:21 General appearance: Present: A&O X 3 (frail/fatigued ), no acute distress, answers questions appropriately - Head Head exam: Present: atraumatic, normocephalic - Eye Eye exam: Present: conjuntiva pink, sclera anicteric - Respiratory Respiratory exam: Present: decreased breath sounds. Absent: respiratory distress, wheezes - Cardiovascular Cardiovascular exam: Present: irregular rhythm, +S1, +S2 - GI/Abdominal GI/Abdominal exam: Present: normal bowel sounds, soft, no peritoneal signs. Absent: distended, tenderness - Extremities Exam Extremities exam: Present: warm, radial pulses palpable and symmetrical. Absent : calf tenderness, cyanotic, pedal edema - Neurological Exam Neurological exam: Present: alert, oriented X3 - Psychiatric Psychiatric exam: Present: normal affect, normal mood Internal Medicine: Result - Labs CBC & Chem 7: 06/19/17 01:12 06/19/17 01:12 Labs: Short CBC 06/18/17 06/19/17 Range/Units 13:08 01:12 WBC 8.7 8.7 (4.3-11.1) K/mcL Hgb 8.9 L 7.4 L D (11.5-15.4) g/dL Hct 30.0 L 25.3 L (35.3-44.9) % Plt Count 257 220 (140-400) K/mcL Neutrophils # 6.3 5.5 (1.6-8.9) K/mcL BMP 06/19/17 01:12 Sodium 134 L Potassium 3.1 L Chloride 97 L Carbon Dioxide 31 H BUN 17 Creatinine 0.93 Glucose 106 H Calcium 7.8 L - ABG Interpretation ABG results: ABG ABG pH 7.47 pH Units (7.32-7.45) H 06/18/17 20:26 ABG pCO2 44 mmHg (35-45) 06/18/17 20:26 ABG pO2 69 mmHg (85-104) L 06/18/17 20:26 ABG O2 Saturation 95 % (95-98) 06/18/17 20:26 - Impressions Impressions Chest X-Ray 06/18/17 12:24 IMPRESSION: Stable right pneumonectomy changes. The left lung demonstrates no acute abnormality. D/ / 06/18/2017 13:51:37 Jan Carballo MD / mireille Interpreting Provider: Jan Carballo MD Head CT 06/18/17 12:26 IMPRESSION: No acute intracranial abnormality. Diffuse atrophic changes with findings suggesting chronic microvascular ischemia D/ / Santos Johnson MD / Santos Johnson MD Interpreting Provider: Santos Johnson MD Consult Discharge Plan - Plan Instructions: Heart Failure (DC), Atrial Fibrillation (DC), Pacemaker (DC), Acute Respiratory Distress Syndrome (DC), Anemia (GEN), Pneumonia (DC) Referrals: Senait Wong CNP [Primary Care Provider] - 06/24/17 10:00 am
[2017-06-19] MEDS: Acetaminophen 325 MG TABLET PO PRN (09:44)
--- NOTE | 2017-06-19 09:53 | Pulmonology Consult Note ---
<Juan Chavira W - Last Filed: 06/19/17 10:55> Date of Encounter: 06/19/17 Medications and Allergies Albuterol Neb [Proventil Neb] 2.5 mg IH Q4HR 05/21/15 [History] Aspirin [Adult Low Dose Aspirin EC] 81 mg PO DAILY 05/21/15 [History] Calcium Carbonate [Tums] 500 mg PO DAILY 05/21/15 [History] Docusate [Colace] 100 mg PO BID 05/21/15 [History] Oxygen 1 each .ROUTE AD 10/28/16 [History] Clopidogrel [Plavix] 75 mg PO DAILY #30 tablet 01/13/17 [Rx] HYDROcodone/Acet 5/325 mg [[place] 5-325 mg] 1 tab PO TID #90 tab 02/09/17 [Rx] Ranitidine HCl [Zantac] 150 mg PO BID #180 tablet 02/10/17 [Rx] Erlotinib HCl [Tarceva] 100 mg PO DAILY 30 Days tablet 02/26/17 [Rx] Atorvastatin [Lipitor] 40 mg PO DAILY 03/19/17 [History] Furosemide [Lasix] 40 mg PO DAILY #90 tablet 04/19/17 [Rx] Folic Acid 1 mg PO DAILY #90 tablet 05/06/17 [Rx] Pantoprazole Sodium [Protonix] 40 mg PO DAILY 05/11/17 [History] Diltiazem CD (24hr) [Cardizem CD] 120 mg PO DAILY #30 cap.er.24h 05/15/17 [Rx] Ferrous Sulfate 325 mg PO BID #60 tablet 05/15/17 [Rx] Metoprolol XL (24 HR) Succ [Toprol Xl] 50 mg PO DAILY #30 tab.er.24h 05/15/17 [ Rx] Gabapentin [Neurontin] 600 tab PO BID 06/16/17 [History] 3 Allergy/AdvReac Type Severity Reaction Status Date / Time No Known Allergies Allergy Verified 03/19/17 09:01 All Systems: A 10-system review of systems was performed and is negative for pertinent findings except as documented above in the HPI. Physical Examination Vital Signs: Vital Signs, Last 4 Hours Temp Pulse Resp BP Pulse Ox 06/19/17 08:21 17 94 06/19/17 08:00 98.3 F 92 74/39 06/19/17 07:00 98.0 F 87 14 79/49 100 Results - Laboratory Findings CBC and BMP: 06/19/17 01:12 06/19/17 01:12 ABG ABG pH 7.47 pH Units (7.32-7.45) H 06/18/17 20:26 ABG pCO2 44 mmHg (35-45) 06/18/17 20:26 ABG pO2 69 mmHg (85-104) L 06/18/17 20:26 ABG O2 Saturation 95 % (95-98) 06/18/17 20:26 Abnormal lab findings: Abnormal lab results RBC 3.51 M/mcL (3.82-4.97) L 06/19/17 01:12 Hgb 7.4 g/dL (11.5-15.4) L D 06/19/17 01:12 Hct 25.3 % (35.3-44.9) L 06/19/17 01:12 MCV 72.1 fL (83.0-100.0) L 06/19/17 01:12 MCH 21.1 pg (28.0-33.3) L 06/19/17 01:12 MCHC 29.2 g/dL (31.6-35.5) L 06/19/17 01:12 RDW 19.9 % (11.5-14.5) H 06/19/17 01:12 Hypochromasia Present (Not Present) A 06/18/17 06:38 Anisocytosis 1+ (Not Present) A 06/18/17 06:38 ABG pH 7.47 pH Units (7.32-7.45) H 06/18/17 20:26 ABG pO2 69 mmHg (85-104) L 06/18/17 20:26 ABG HCO3 32 mEq/L (21-27) H 06/18/17 20:26 ABG Total CO2 33 mEq/L (20-26) H 06/18/17 20:26 ABG Base Excess 7 mEq/L (-2 to 3) H 06/18/17 20:26 Sodium 134 mEq/L (136-145) L 06/19/17 01:12 Potassium 3.1 mEq/L (3.5-4.5) L 06/19/17 01:12 Chloride 97 mEq/L (98-109) L 06/19/17 01:12 Carbon Dioxide 31 mEq/L (19-29) H 06/19/17 01:12 Glucose 106 mg/dL (70-99) H 06/19/17 01:12 POC Glucose 115 (58-89) H 06/19/17 07:45 Calcium 7.8 mg/dL (8.6-10.8) L 06/19/17 01:12 Magnesium 1.5 mg/dL (1.6-2.6) L 06/19/17 01:12 Total Bilirubin 2.0 mg/dL (0.2-1.2) H 06/19/17 09:40 Direct Bilirubin 1.1 mg/dL (0.0-0.5) H 06/19/17 09:40 AST 40 Units/L (5-34) H 06/19/17 09:40 B-Natriuretic Peptide 1835 pg/mL (0-100) H 06/16/17 13:47 Serum Total Protein 5.7 g/dL (6.0-8.3) L 06/19/17 09:40 Albumin 2.2 g/dL (3.5-5.0) L 06/19/17 09:40 Albumin/Globulin Ratio 0.6 (1.1-2.2) L 06/19/17 09:40 - Microbiology Findings Microbiology Findings: Microbiology, Last 48 Hours 06/17/17 13:35 Blood Culture - Preliminary Peripheral Venipuncture No growth. 06/17/17 13:35 Blood Culture - Preliminary Peripheral Venipuncture No growth. - Clinical Findings Intake & Output: Intake & Output 06/18/17 06/19/17 06/19/17 23:59 07:59 15:59 Intake Total 200 / 200 200 / 200 Output Total 400 / 400 750 / 750 Balance -200 / -200 -550 / -550 Weight 50 kg Consult Discharge Plan - Plan Instructions: Heart Failure (DC), Atrial Fibrillation (DC), Pacemaker (DC), Acute Respiratory Distress Syndrome (DC), Anemia (GEN), Pneumonia (DC) Referrals: Senait Wong APPLIED PSYCHOLOGY TEACHER [Primary Care Provider] - 06/24/17 10:00 am - Attending Attestation I examined this patient and my medical decision-making was reviewed with the Resident Physician. I agree with the documented findings, disposition and treatment plan as described except to the extent set forth below. We independently had [id number] contact with the patient Patient seen and examined at bedside Labs, radiology, chart personally reviewed. ARTS AND CRAFTS TEACHER: Encephalopathy resolved continue to avoid sensory deprivation focus on temple of sleep-wake cycle avoid ARTS AND CRAFTS TEACHER depressants Pulm: Acute on chronic respiratory failure secondary to heart failure with preserved ejection fraction lung cancer status post right partial pneumonectomy COPD and likely aspiration pneumonia. Continue supplemental O2 to keep saturation greater than 88 around 92% BiPAP as needed for work of breathing or hypoxia Cards: Hypotension without shock physiology related to overdiuresis with onset of sepsis. Hold antihypertensive/keturah blocking agents for chronic atrial fibrillation. Colloidi challenges as needed to her goal blood pressure MAP around 65. Recheck lactate today. FEN-GI: Nothing by mouth for now given aspiration and possibility of clinical deterioration requiring intubation or additional procedure Renal: No evidence of AK I continue to monitor urine output ID: Sepsis suspected secondary to aspiration she is on broad-spectrum antimicrobials obtain blood cultures 2 sputum and urine cultures checked chest x-ray is stable Heme/Onc: Provide chemical DVT prophylaxis. Acute on chronic anemia which I suspect is dilutional effect transfuse for hemoglobin less than 7 Dispo: She is stable for continued monitor on telemetry on 2NE should blood pressure remained low or worsening hypoxemia she can be transferred to ICU for further management CODE: Full family updated at bedside <Gus Mccarthy - Last Filed: 06/19/17 11:58> Date of Encounter: 06/19/17 Time of Encounter: 09:30 Assessment and Plan (1) Acute and chronic respiratory failure with hypoxia Current Visit: No Status: Acute - Presented with 2-day history of worsening dyspnea on exertion and reported desaturation to 85% on room air in ED. - ABG on 06/18/17: pH 7.47, pCO2 44, pO2 69 and HCO3 32. - Initially believed secondary to CHF exacerbation in the setting of history of lung cancer s/p right lower lobectomy. Suspected aspiration pneumonia also play some role. - Currently stable with O2 sat 94% on 4L NC. - Continue brochodilators and supplement oxygen. Also can use BiPAP as needed for respiratory support. - Continue to monitor closely. (2) Sepsis Current Visit: Yes Status: Acute - 3 SIRS criteria (tachycardia, tachypnea and fever) with lactic acid 1.4 today. - Likely secondary to possible pneumonia. - Blood cultures from 06/16 and 06/17 NGTD. - Will obtain sputum culture. - Continue empiric antibiotics coverage: IV vancomycin (since 06/18) and Zosyn ( 06/18). - Hydration with IV fluid. - Continue close monitoring. Qualifiers: Sepsis type: sepsis due to unspecified organism Qualified Code(s): A41.9 - Sepsis, unspecified organism (3) Hypotension Current Visit: Yes Status: Acute - Significant hypotension noted overnight with BP 74/39 this morning. - Most likely related to prior aggressive diuresis in the setting of antihypertensive/anti-a-fib medications use and sepsis. - Continue hydration with IV fluid and albumin. The goal is to have MAP 65 or higher. - Continue close monitoring. Qualifiers: Hypotension type: hypotension due to drug Qualified Code(s): I95.2 - Hypotension due to drugs (4) Pneumonia Current Visit: No Status: Acute - Concern of aspiration pneumonia. - Will obtain sputum culture. - Continue empiric antibiotics: IV vancomycin (since 06/18) and Zosyn (since 06/18 ). Qualifiers: Pneumonia type: due to unspecified organism Laterality: unspecified laterality Lung location: unspecified part of lung Qualified Code(s): J18.9 - Pneumonia, unspecified organism (5) Encephalopathy Current Visit: Yes Status: Acute - Reported significant lethargy on 06/18/17. - Patient is alert and orient to person and place this morning. Per family members at bedside, still some confusion noted. - Likely metabolic encephalopathy current to current sepsis/infection. - Continue monitor closely. (6) Congestive heart failure Current Visit: Yes Status: Acute - Echo on 10/20/16 found LVEF 60-65% with moderate LV diastolic dysfunction. - Patient was aggressively diuresed since admission. - Hold diuresis at this time given current hypotension. Qualifiers: Congestive heart failure type: diastolic Congestive heart failure chronicity: acute on chronic Qualified Code(s): I50.33 - Acute on chronic diastolic (congestive) heart failure (7) Anemia Current Visit: No Status: Chronic - Hgb 7.4 today, dropped from 8.9 yesterday. - History of iron deficiency anemia and on iron supplement. - Continue to monitor closely. Qualifiers: Anemia type: iron deficiency Iron deficiency anemia type: other iron deficiency Qualified Code(s): D50.8 - Other iron deficiency anemias (8) History of esophagitis Current Visit: Yes Status: Acute - EGD on 06/08/17 found LA grade C esophagitis and non-bleeding esophageal ulcer. - Continue PPI. (9) Coronary artery disease Current Visit: No Status: Acute - On aspirin, Plavix, Lipitor. Qualifiers: Coronary Disease-Associated Artery/Lesion type: [place] artery [place] vs. transplanted heart: [place] heart Associated angina: without angina Qualified Code(s): I25.10 - Atherosclerotic heart disease of [place] coronary artery without angina pectoris (10) Non-small cell lung cancer Current Visit: No Status: Chronic - History of right lower lobe non-small cell lung cancer s/p right lower lobectomy 11/01/2004, radiation therapy and on Tarceva. Qualifiers: Laterality: left Qualified Code(s): C34.92 - Malignant neoplasm of unspecified part of left bronchus or lung History of Present Illness Consult date: 06/19/17 Requesting physician: Sarah Adams Reason for consult: other (Respiratory failure, sepsis with hypotension and altered mental status.) Chief complaint: Shortness of breath History of present illness: Ms. Wong is a 71 year-old female with PMH of COPD on home oxygen at night, diastolic CHF, CAD s/p 5 stents, paroxysmal A-fib and history of lung cancer s/ p right lobectomy, radiation and now on Tarceva. Patient presented to [facility] ED for 2-day history of worsening shortness of breath on exertion and cough with clear/yellow sputum. Patient was noted to have tachycardia and tachypnea along with desaturation to 85% on room air in ED. Patient was admitted on 06/16/17 for acute on chronic respiratory failure and diastolic heart failure and started on aggressive diuresis with IV Lasix. Patient was noted to be lethargic on 06/18/17 and started on IV vancomycin and Zosyn. Patient was noted to have significant hypertension overnight and critical care is consulted on 06/19/17 for the concern of possible septic shock. Patient was seen and examined this morning. Patient is alert and orient to self and place. Patient reports having headache and hip pain but denies chest pain, abdominal pain. Patient reports breathing better but still has yellow sputum production. Past Med Surg Social Fam HX - Past Medical History Medical history: atrial fibrillation, cancer, COPD, GERD, myocardial infarction , seizures Psychiatric history: anxiety, depression - Past Surgical History Surgical History: angioplasty/stent, cancer surgery, cholecystectomy - Social History Smoking Status: Former smoker Smokeless Tobacco Status: No Alcohol use: none Drug use: none - Family History Mother Hx Family Cardiac Disorders: Yes Father Hx Family Cardiac Disorders: Yes - Constitutional Constitutional: fever(s) - EENT Eyes: no loss of vision Nose, mouth and throat: headache(s) - Cardiovascular Cardiovascular: no chest pain - Respiratory Respiratory: cough, dyspnea, excessive phlegm production (Yellow) - Gastrointestinal Gastrointestinal: no abdominal pain - Musculoskeletal Musculoskeletal: arthralgias (Hip pain) Physical Examination Vital Signs: Vital Signs, Last 4 Hours Temp Pulse Resp BP Pulse Ox 06/19/17 08:21 17 94 06/19/17 08:00 98.3 F 92 74/39 06/19/17 07:00 98.0 F 87 14 79/49 100 06/19/17 06:00 97.8 F 120 20 78/51 92 General appearance: no acute distress, alert Eyes: nonicteric ENT: oropharynx dry Neck: supple Effort: normal Inspection: normal Auscultation: bilateral: clear Cardiovascular: regular rate and rhythm Gastrointestinal: normoactive bowel sounds, soft, non-tender Integumentary: normal Extremities: no cyanosis, no edema Musculoskeletal: no deformities normal mental status (Alert and orient to self and place.), non-focal exam Results - Laboratory Findings CBC and BMP: 06/19/17 01:12 06/19/17 01:12 ABG ABG pH 7.47 pH Units (7.32-7.45) H 06/18/17 20:26 ABG pCO2 44 mmHg (35-45) 06/18/17 20:26 ABG pO2 69 mmHg (85-104) L 06/18/17 20:26 ABG O2 Saturation 95 % (95-98) 06/18/17 20:26 Abnormal lab findings: Abnormal lab results RBC 3.51 M/mcL (3.82-4.97) L 06/19/17 01:12 Hgb 7.4 g/dL (11.5-15.4) L D 06/19/17 01:12 Hct 25.3 % (35.3-44.9) L 06/19/17 01:12 MCV 72.1 fL (83.0-100.0) L 06/19/17 01:12 MCH 21.1 pg (28.0-33.3) L 06/19/17 01:12 MCHC 29.2 g/dL (31.6-35.5) L 06/19/17 01:12 RDW 19.9 % (11.5-14.5) H 06/19/17 01:12 Hypochromasia Present (Not Present) A 06/18/17 06:38 Anisocytosis 1+ (Not Present) A 06/18/17 06:38 ABG pH 7.47 pH Units (7.32-7.45) H 06/18/17 20:26 ABG pO2 69 mmHg (85-104) L 06/18/17 20:26 ABG HCO3 32 mEq/L (21-27) H 06/18/17 20:26 ABG Total CO2 33 mEq/L (20-26) H 06/18/17 20:26 ABG Base Excess 7 mEq/L (-2 to 3) H 06/18/17 20:26 Sodium 134 mEq/L (136-145) L 06/19/17 01:12 Potassium 3.1 mEq/L (3.5-4.5) L 06/19/17 01:12 Chloride 97 mEq/L (98-109) L 06/19/17 01:12 Carbon Dioxide 31 mEq/L (19-29) H 06/19/17 01:12 Glucose 106 mg/dL (70-99) H 06/19/17 01:12 POC Glucose 115 (58-89) H 06/19/17 07:45 Calcium 7.8 mg/dL (8.6-10.8) L 06/19/17 01:12 Magnesium 1.5 mg/dL (1.6-2.6) L 06/19/17 01:12 B-Natriuretic Peptide 1835 pg/mL (0-100) H 06/16/17 13:47 - Microbiology Findings Microbiology Findings: Microbiology, Last 48 Hours 06/17/17 13:35 Blood Culture - Preliminary Peripheral Venipuncture No growth. 06/17/17 13:35 Blood Culture - Preliminary Peripheral Venipuncture No growth. - Diagnostic Findings Chest x-ray: report reviewed, image reviewed - Clinical Findings Intake & Output: Intake & Output 12/08/17 12/09/17 12/09/17 23:59 07:59 15:59 Intake Total 200 / 200 200 / 200 Output Total 400 / 400 750 / 750 Balance -200 / -200 -550 / -550 Weight 50 kg
[2017-06-19 10:10] LABS: Albumin 2.2 g/dL (3.5-5.0); Albumin/Globulin Ratio 0.6 (1.1-2.2); Bilirubin,Direct 1.1 mg/dL (0.0-0.5); Bilirubin,Indirect 0.9 mg/dL (0.0-1.2); Globulin 3.5 g/dL (2.4-3.5); Total Protein 5.7 g/dL (6.0-8.3)
[2017-06-19] MEDS: ERLOTINIB HCL 100 MG PO SCH (10:37)
[2017-06-19 11:56] LABS: Basophils % 0.5 %; Eosinophils % 0.5 %; Hematocrit 29.7 % (35.3-44.9); Hemoglobin 8.8 g/dL (11.5-15.4); Immature Granulocytes % 0.3 % (0-4); Lymphocytes # 1.4 K/mcL (0.6-4.6); Lymphocytes % 17.7 %; Mean Corpuscular HGB Conc 29.6 g/dL (31.6-35.5); Mean Corpuscular Hemoglobin 21.7 pg (28.0-33.3); Mean Corpuscular Volume 73.3 fL (83.0-100.0); Monocytes # 0.8 K/mcL (0.0-1.3); Monocytes % 10.3 %; Neutrophils # 5.6 K/mcL (1.6-8.9); Platelet Count 243 K/mcL (140-400); Red Blood Count 4.05 M/mcL (3.82-4.97); Red Cell Distribution Width 20.4 % (11.5-14.5); Segmented Neutrophils % 70.7 %
[2017-06-19 12:16] LABS: Anisocytosis 1+ (Not Present); Hypochromasia Present (Not Present); Platelet Estimate Normal (Normal); Poikilocytosis 1+ (Not Present)
[2017-06-19 12:17] LABS: Burr Cells 1+ (Not Present)
[2017-06-19] MEDS: *HR* HYDROcodone/Acet 5/325 mg TABLET PO PRN ×2 (12:55→20:57)
[2017-06-19] MEDS: Vancomycin 750 MG in D5% in Water 250 ML IVPB SCH (14:56)
[2017-06-20] MEDS ORDERED: 0.9 % Sodium Chloride 500 ML IVC ONE (01:03)
[2017-06-20] MEDS ORDERED: *HR* Digoxin 0.5 MG/2 ML AMPUL IVP ONE (01:04)
[2017-06-20] MEDS: Acetaminophen 325 MG TABLET PO PRN ×2 (02:57→13:33)
[2017-06-20] MEDS: Albuterol 2.5 MG/3 ML NEBULIZER IH SCH ×6 (03:47→23:31)
[2017-06-20 04:41] LABS: Basophils % 0.7 %
[2017-06-20 04:42] LABS: Hematocrit 26.8 % (35.3-44.9); Hemoglobin 7.8 g/dL (11.5-15.4); Mean Corpuscular HGB Conc 29.1 g/dL (31.6-35.5); Mean Corpuscular Hemoglobin 21.7 pg (28.0-33.3); Mean Corpuscular Volume 74.4 fL (83.0-100.0); Red Cell Distribution Width 20.6 % (11.5-14.5)
[2017-06-20 04:43] LABS: Eosinophils # 0.1 K/mcL (0.0-0.6); Eosinophils % 2.1 %; Immature Granulocytes % 0.5 % (0-4); Lymphocytes # 0.9 K/mcL (0.6-4.6); Lymphocytes % 15.2 %; Monocytes # 0.6 K/mcL (0.0-1.3); Monocytes % 11.1 %; Nucleated Red Blood Cells 0.4 /100 WBC (0); Platelet Count 228 K/mcL (140-400); Segmented Neutrophils % 70.4 %
[2017-06-20 04:54] LABS: BUN/Creatinine Ratio 15 (6-26); Blood Urea Nitrogen 11 mg/dL (7-20); Calcium 8.2 mg/dL (8.6-10.8); Carbon Dioxide 27 mEq/L (19-29); Chloride 101 mEq/L (98-109); Glucose 82 mg/dL (70-99); Magnesium 1.7 mg/dL (1.6-2.6); Osmolality,Calculated 276 (280-300); Phosphorous 1.9 mg/dL (2.3-4.7); Potassium 3.5 mEq/L (3.5-4.5); Sodium 134 mEq/L (136-145); eGFR For African Americans > 60 (> 60); eGFR For Non-African Americans > 60 (> 60)
[2017-06-20 05:27] LABS: Neutrophils # 3.9 K/mcL (1.6-8.9)
[2017-06-20 05:28] LABS: Anisocytosis 2+ (Not Present); Burr Cells 1+ (Not Present); Hypochromasia Present (Not Present); Ovalocytes 1+ (Not Present); Platelet Estimate Normal (Normal); Poikilocytosis 2+ (Not Present)
--- NOTE | 2017-06-20 08:12 | Pulmonology Progress Note ---
<FanJuan W - Last Filed: 06/20/17 10:55> Date of Encounter: 06/20/17 Objective PUL Vital signs: Last Vital Signs Temp 97.7 F 06/20/17 06:50 Pulse 103 06/20/17 06:50 Resp 16 06/20/17 09:14 BP 92/58 06/20/17 09:14 Pulse Ox 100 06/20/17 09:14 Results - Laboratory Findings CBC and BMP: 06/20/17 03:52 06/20/17 03:52 ABG ABG pH 7.47 pH Units (7.32-7.45) H 06/18/17 20:26 ABG pCO2 44 mmHg (35-45) 06/18/17 20:26 ABG pO2 69 mmHg (85-104) L 06/18/17 20:26 ABG O2 Saturation 95 % (95-98) 06/18/17 20:26 Abnormal lab findings: Abnormal lab results RBC 3.60 M/mcL (3.82-4.97) L 06/20/17 03:52 Hgb 7.8 g/dL (11.5-15.4) L 06/20/17 03:52 Hct 26.8 % (35.3-44.9) L 06/20/17 03:52 MCV 74.4 fL (83.0-100.0) L 06/20/17 03:52 MCH 21.7 pg (28.0-33.3) L 06/20/17 03:52 MCHC 29.1 g/dL (31.6-35.5) L 06/20/17 03:52 RDW 20.6 % (11.5-14.5) H 06/20/17 03:52 Nucleated RBCs/100 WBC 0.4 /100 WBC (0) H 06/20/17 03:52 Hypochromasia Present (Not Present) A 06/20/17 03:52 Poikilocytosis 2+ (Not Present) A 06/20/17 03:52 Anisocytosis 2+ (Not Present) A 06/20/17 03:52 Ovalocytes 1+ (Not Present) A 06/20/17 03:52 Lincoln Cells 1+ (Not Present) A 06/20/17 03:52 ABG pH 7.47 pH Units (7.32-7.45) H 06/18/17 20:26 ABG pO2 69 mmHg (85-104) L 06/18/17 20:26 ABG HCO3 32 mEq/L (21-27) H 06/18/17 20:26 ABG Total CO2 33 mEq/L (20-26) H 06/18/17 20:26 ABG Base Excess 7 mEq/L (-2 to 3) H 06/18/17 20:26 Sodium 134 mEq/L (136-145) L 06/20/17 03:52 POC Glucose 115 (58-89) H 06/19/17 07:45 Calculated Osmolality 276 (280-300) L 06/20/17 03:52 Calcium 8.2 mg/dL (8.6-10.8) L 06/20/17 03:52 Phosphorus 1.9 mg/dL (2.3-4.7) L 06/20/17 03:52 Total Bilirubin 2.0 mg/dL (0.2-1.2) H 06/19/17 09:40 Direct Bilirubin 1.1 mg/dL (0.0-0.5) H 06/19/17 09:40 AST 40 Units/L (5-34) H 06/19/17 09:40 B-Natriuretic Peptide 1835 pg/mL (0-100) H 06/16/17 13:47 Serum Total Protein 5.7 g/dL (6.0-8.3) L 06/19/17 09:40 Albumin 2.2 g/dL (3.5-5.0) L 06/19/17 09:40 Albumin/Globulin Ratio 0.6 (1.1-2.2) L 06/19/17 09:40 - Microbiology Findings Microbiology Findings: Microbiology, Last 48 Hours 06/19/17 21:00 Sputum Culture - Final Sputum 06/17/17 13:35 Blood Culture - Preliminary Peripheral Venipuncture No growth. 06/17/17 13:35 Blood Culture - Preliminary Peripheral Venipuncture No growth. - Clinical Findings Intake & Output: Intake & Output 06/19/17 06/20/17 06/20/17 23:59 07:59 15:59 Intake Total 450 / 450 200 / 200 Output Total 700 / 700 Balance 450 / 450 -500 / -500 Consult Discharge Plan - Plan Instructions: Heart Failure (DC), Atrial Fibrillation (DC), Pacemaker (DC), Acute Respiratory Distress Syndrome (DC), Anemia (GEN), Pneumonia (DC) Referrals: Senait Wong CNP [Primary Care Provider] - 06/24/17 10:00 am - Attending Attestation I examined this patient and my medical decision-making was reviewed with the Resident Physician. I agree with the documented findings, disposition and treatment plan as described except to the extent set forth below. We independently had [id number] contact with the patient Patient clinically stable Lactate within normal limits Heart rate has been increasing overnight likely related to holding keturah blocking agents. Impression: Hypotension without shock physiology possibly related to sepsis versus hypovolemia and has responded to Colloid challenge Sepsis possibly secondary to aspiration on antimicrobials Chronic respiratory failure on nasal cannula O2 Chronic Afib Recs: Slow restart/titration of keturah blocking agents per primary team Recommend net even volume status today consider restart low dose diuretic tomorrow Cont antimicrobials for pneumonia stop MRSA coverage and 24 hours if no evidence of MRSA infection we treat for 5-7 days total based upon clinical course Pulmonary will sign off pleased do not hesitate to call with any questions <Gus Mccarthy - Last Filed: 06/20/17 13:45> Date of Encounter: 06/20/17 Time of Encounter: 08:00 Assessment and Plan (1) Acute and chronic respiratory failure with hypoxia Current Visit: No Status: Acute - Presented with 2-day history of worsening dyspnea on exertion and reported desaturation to 85% on room air in ED. - ABG on 06/18/17: pH 7.47, pCO2 44, pO2 69 and HCO3 32. - Initially believed secondary to CHF exacerbation in the setting of history of lung cancer s/p right lower lobectomy. Suspected aspiration pneumonia also play some role. - Currently stable with O2 sat 100% on 2L NC. - Continue brochodilators and supplement oxygen. Also can use BiPAP as needed for respiratory support. - Given patient's respiratory status improves, pulmonology will sign off at this time. Please contact us if there is any question or concern. (2) Sepsis Current Visit: Yes Status: Acute - 3 SIRS criteria (tachycardia, tachypnea and fever) with lactic acid 1.2 on 06/19 - Likely secondary to possible pneumonia. - Blood cultures from 06/16 and 06/17 NGTD. - Currently on IV vancomycin (since 06/18) and Zosyn (since 06/18). Consider discontinuation of vancomycin if no indication of MRSA infection. - Hydration with IV fluid. - Continue close monitoring. Qualifiers: Sepsis type: sepsis due to unspecified organism Qualified Code(s): A41.9 - Sepsis, unspecified organism (3) Hypotension Current Visit: Yes Status: Acute - Significant hypotension noted overnight with BP 74/39 on 06/19 morning. - Most likely related to prior aggressive diuresis in the setting of antihypertensive medications use and sepsis. - Seems to response to colloid fluid challenge with BP 92/58 this morning. - Continue hydration with IV fluid The goal is to have MAP 65 or higher. - Continue to monitor. - Management per primary team. Qualifiers: Hypotension type: hypotension due to drug Qualified Code(s): I95.2 - Hypotension due to drugs (4) Atrial fibrillation Current Visit: No Status: Chronic - Tachycardic at rate of 120s this morning. - Likely secondary to holding rate-control medication for hypotension yesterday. - Management per primary team. Qualifiers: Atrial fibrillation type: paroxysmal Qualified Code(s): I48.0 - Paroxysmal atrial fibrillation (5) Pneumonia Current Visit: No Status: Acute - Concern of aspiration pneumonia. - Currently on IV vancomycin (since 06/18) and Zosyn (since 06/18). Consider discontinuation of vancomycin if no indication of MRSA infection. Qualifiers: Pneumonia type: due to unspecified organism Laterality: unspecified laterality Lung location: unspecified part of lung Qualified Code(s): J18.9 - Pneumonia, unspecified organism (6) Encephalopathy Current Visit: Yes Status: Acute - Reported significant lethargy on 06/18/17. - Likely metabolic encephalopathy current to current sepsis/infection. - Improves as patient is alert and orient to person and place this morning. - Continue monitor closely. (7) Congestive heart failure Current Visit: Yes Status: Acute - Echo on 10/20/16 found LVEF 60-65% with moderate LV diastolic dysfunction. - Patient was aggressively diuresed since admission. - Hold diuresis at this time given current hypotension. Qualifiers: Congestive heart failure type: diastolic Congestive heart failure chronicity: acute on chronic Qualified Code(s): I50.33 - Acute on chronic diastolic (congestive) heart failure (8) Anemia Current Visit: No Status: Chronic - Hgb 7.4 today, dropped from 8.9 yesterday. - History of iron deficiency anemia and on iron supplement. - Continue to monitor closely. Qualifiers: Anemia type: iron deficiency Iron deficiency anemia type: other iron deficiency Qualified Code(s): D50.8 - Other iron deficiency anemias (9) History of esophagitis Current Visit: Yes Status: Acute - EGD on 06/08/17 found LA grade C esophagitis and non-bleeding esophageal ulcer. - Continue PPI. (10) Coronary artery disease Current Visit: No Status: Acute - On aspirin, Plavix, Lipitor. Qualifiers: Coronary Disease-Associated Artery/Lesion type: [place] artery [place] vs. transplanted heart: [place] heart Associated angina: without angina Qualified Code(s): I25.10 - Atherosclerotic heart disease of [place] coronary artery without angina pectoris (11) Non-small cell lung cancer Current Visit: No Status: Chronic - History of right lower lobe non-small cell lung cancer s/p right lower lobectomy 11/01/2004, radiation therapy and on Tarceva. Qualifiers: Laterality: left Qualified Code(s): C34.92 - Malignant neoplasm of unspecified part of left bronchus or lung Subjective Principal diagnosis: CHF Interval history: Patient was seen and examined this morning. Patient reports breathing better and denies chest pain, abdominal pain, lightheadedness/dizziness. Objective PUL Vital signs: Last Vital Signs Temp 97.7 F 06/20/17 06:50 Pulse 103 06/20/17 06:50 Resp 17 06/20/17 06:50 BP 92/58 06/20/17 06:50 Pulse Ox 100 06/20/17 06:50 General appearance: no acute distress, alert Eyes: nonicteric ENT: oropharynx dry Neck: supple Effort: normal Auscultation: bilateral: clear Cardiovascular: irregular rhythm (Tachycardia at 110s) Gastrointestinal: normoactive bowel sounds, soft, non-tender Integumentary: normal Extremities: no cyanosis, no edema Musculoskeletal: no deformities normal mental status, non-focal exam mood appropriate, affect normal Results - Laboratory Findings CBC and BMP: 06/20/17 03:52 06/20/17 03:52 ABG ABG pH 7.47 pH Units (7.32-7.45) H 06/18/17 20:26 ABG pCO2 44 mmHg (35-45) 06/18/17 20:26 ABG pO2 69 mmHg (85-104) L 06/18/17 20:26 ABG O2 Saturation 95 % (95-98) 06/18/17 20:26 Abnormal lab findings: Abnormal lab results RBC 3.60 M/mcL (3.82-4.97) L 06/20/17 03:52 Hgb 7.8 g/dL (11.5-15.4) L 06/20/17 03:52 Hct 26.8 % (35.3-44.9) L 06/20/17 03:52 MCV 74.4 fL (83.0-100.0) L 06/20/17 03:52 MCH 21.7 pg (28.0-33.3) L 06/20/17 03:52 MCHC 29.1 g/dL (31.6-35.5) L 06/20/17 03:52 RDW 20.6 % (11.5-14.5) H 06/20/17 03:52 Nucleated RBCs/100 WBC 0.4 /100 WBC (0) H 06/20/17 03:52 Hypochromasia Present (Not Present) A 06/20/17 03:52 Poikilocytosis 2+ (Not Present) A 06/20/17 03:52 Anisocytosis 2+ (Not Present) A 06/20/17 03:52 Ovalocytes 1+ (Not Present) A 06/20/17 03:52 Lincoln Cells 1+ (Not Present) A 06/20/17 03:52 ABG pH 7.47 pH Units (7.32-7.45) H 06/18/17 20:26 ABG pO2 69 mmHg (85-104) L 06/18/17 20:26 ABG HCO3 32 mEq/L (21-27) H 06/18/17 20:26 ABG Total CO2 33 mEq/L (20-26) H 06/18/17 20:26 ABG Base Excess 7 mEq/L (-2 to 3) H 06/18/17 20:26 Sodium 134 mEq/L (136-145) L 06/20/17 03:52 POC Glucose 115 (58-89) H 06/19/17 07:45 Calculated Osmolality 276 (280-300) L 06/20/17 03:52 Calcium 8.2 mg/dL (8.6-10.8) L 06/20/17 03:52 Phosphorus 1.9 mg/dL (2.3-4.7) L 06/20/17 03:52 Total Bilirubin 2.0 mg/dL (0.2-1.2) H 06/19/17 09:40 Direct Bilirubin 1.1 mg/dL (0.0-0.5) H 06/19/17 09:40 AST 40 Units/L (5-34) H 06/19/17 09:40 B-Natriuretic Peptide 1835 pg/mL (0-100) H 06/16/17 13:47 Serum Total Protein 5.7 g/dL (6.0-8.3) L 06/19/17 09:40 Albumin 2.2 g/dL (3.5-5.0) L 06/19/17 09:40 Albumin/Globulin Ratio 0.6 (1.1-2.2) L 06/19/17 09:40 - Microbiology Findings Microbiology Findings: Microbiology, Last 48 Hours 06/19/17 21:00 Sputum Culture - Final Sputum 06/17/17 13:35 Blood Culture - Preliminary Peripheral Venipuncture No growth. 06/17/17 13:35 Blood Culture - Preliminary Peripheral Venipuncture No growth. - Clinical Findings Intake & Output: Intake & Output 06/19/17 06/20/17 06/20/17 23:59 07:59 15:59 Intake Total 450 / 450 200 / 200 Output Total 700 / 700 Balance 450 / 450 -500 / -500
[2017-06-20] MEDS: Aspirin Enteric Coated 81 MG Tablet PO SCH (08:18)
[2017-06-20] MEDS: Folic Acid 1 MG TABLET PO SCH (08:18)
[2017-06-20] MEDS: ERLOTINIB HCL 100 MG PO SCH (08:19)
[2017-06-20] MEDS: Piperacillin/Tazobactam 3.375 GM/200 ML BAG IVPB SCH ×3 (08:22→23:27)
[2017-06-20] MEDS ORDERED: Aminoglycoside Consult 1 EACH MC ONE (08:38)
[2017-06-20] MEDS ORDERED: Ondansetron 4 MG/2 ML VIAL IVP PRN (09:13)
[2017-06-20] MEDS ORDERED: Ondansetron 4 MG/2 ML VIAL ONE (09:15)
[2017-06-20] MEDS ORDERED: Ketorolac 15 MG/ML VIAL IVP ONE (09:39)
[2017-06-20] MEDS: GuaiFENesin/Dextromethorphan TABLET PO SCH ×2 (09:51→21:01)
--- NOTE | 2017-06-20 11:52 | Internal Med Progress Note ---
Date of Encounter: 06/20/17 Time of Encounter: 09:15 - Assessment and plan (1) Sepsis Current Visit: Yes Status: Acute Assessment and plan: Likely secondary to aspiration PNA hypotension can be secondary to volume depletion from diuretic use BP improved, s/p albumin administration yesterday Critical care consultation appreciated will continue empiric IV abx restarted diet blood cultures prelim report: NO growth will continue to closely monitor Qualifiers: Sepsis type: sepsis due to unspecified organism Qualified Code(s): A41.9 - Sepsis, unspecified organism (2) Change in mental state Current Visit: Yes Status: Acute Assessment and plan: Of unclear etiology Improved from previous day AAO x 3 today concern for infectious etiology contributing to the acute change in mental status continue empiric IV abx for aspiration PNA CT head and CXR reported no acute abnormalities will continue to closely monitor Qualifiers: Altered mental status type: unspecified Qualified Code(s): R41.82 - Altered mental status, unspecified (3) Atrial fibrillation with RVR Current Visit: No Status: Acute Assessment and plan: Rate poorly controlled restarted Cardizem 30mg PO q6h holding BB given labile BP readings will continue to closely monitor pt not on anticoagulation due to history of metastatic disease to the brain continue ASA, Plavix (4) Acute on chronic heart failure Current Visit: No Status: Acute Assessment and plan: Acute respiratory distress secondary to CHF decompensation Respiratory status at baseline monitor daily weights, strict I/Os fluid restriction diet O2 supplementation as needed holding Lasix given current BP readings Qualifiers: Heart failure type: diastolic Qualified Code(s): I50.33 - Acute on chronic diastolic (congestive) heart failure (5) LEODAN (acute kidney injury) Current Visit: Yes Status: Resolved Assessment and plan: Resolved hold antihypertensive agents for SBP<100 will closely monitor renal function (6) Anemia Current Visit: No Status: Chronic Assessment and plan: H&H low but acceptable no acute bleeding reported continue to monitor f/u occult stool Qualifiers: Anemia type: iron deficiency Iron deficiency anemia type: other iron deficiency Qualified Code(s): D50.8 - Other iron deficiency anemias (7) Hypertension Current Visit: No Status: Chronic Assessment and plan: Remained hypotensive throughout the night responded to fluid challenges critical care consultation appreciated repeat BP improved continue to hold all antihypertensive medications if SBP<100 Qualifiers: Hypertension type: essential hypertension Qualified Code(s): I10 - Essential (primary) hypertension (8) Non-small cell lung cancer Current Visit: No Status: Chronic Qualifiers: Laterality: left Qualified Code(s): C34.92 - Malignant neoplasm of unspecified part of left bronchus or lung (9) DVT prophylaxis Current Visit: No Status: Acute Assessment and plan: Heparin SQ (10) Fever Current Visit: Yes Status: Resolved Assessment and plan: continue empiric IV abx for concern for aspiration PNA no recurrent episode of diarrhea reported blood cultures prelim report no growth (11) Aspiration pneumonia Current Visit: Yes Status: Acute Assessment and plan: continue empiric IV abx for concern for aspiration PNA no recurrent episode of diarrhea reported blood cultures prelim report no growth Qualifiers: Aspiration pneumonia type: unspecified Laterality: unspecified laterality Lung location: unspecified part of lung Qualified Code(s): J69.0 - Pneumonitis due to inhalation of food and vomit (12) Electrolyte abnormality Current Visit: Yes Status: Acute Assessment and plan: Hypophosphotemia Phos supplemented continue to monitor electrolytes and replace as needed - Subjective Interval history: Patient seen and examined at bedside. Sitting in chair and reports of feeling better from previous day. Overnight noted to be in AFib with RVR and hypotensive , receiving a dose of Digoxin and IV fluid bolus. Pt responded well to therapy BP within acceptable range however continues to be in Afib with RVR Started low dose Cardizem 30mg PO q6h if hypotension reoccurs, will initiate colloid support - Constitutional Vitals: Temp Pulse Resp BP Pulse Ox 97.7 F 103 16 92/58 100 06/20/17 06:50 06/20/17 06:50 06/20/17 09:14 06/20/17 09:14 06/20/17 09:14 General appearance: Present: A&O X 3 (frail/fatigued ), no acute distress, answers questions appropriately - Head Head exam: Present: atraumatic, normocephalic - Eye Eye exam: Present: conjuntiva pink, sclera anicteric - Respiratory Respiratory exam: Absent: respiratory distress, wheezes (coarse breath sounds bilaterally) - Cardiovascular Cardiovascular exam: Present: irregular rhythm, +S1, +S2, tachycardia - GI/Abdominal GI/Abdominal exam: Present: normal bowel sounds, soft, no peritoneal signs. Absent: distended, tenderness - Extremities Exam Extremities exam: Present: warm, radial pulses palpable and symmetrical. Absent : calf tenderness, cyanotic, pedal edema - Neurological Exam Neurological exam: Present: alert, oriented X3 - Psychiatric Psychiatric exam: Present: normal affect, normal mood Internal Medicine: Result - Labs CBC & Chem 7: 06/20/17 03:52 06/20/17 03:52 Labs: Short CBC 06/19/17 06/20/17 Range/Units 09:40 03:52 WBC 7.9 5.6 (4.3-11.1) K/mcL Hgb 8.8 L 7.8 L (11.5-15.4) g/dL Hct 29.7 L 26.8 L (35.3-44.9) % Plt Count 243 228 (140-400) K/mcL Neutrophils # 5.6 3.9 (1.6-8.9) K/mcL BMP 06/20/17 03:52 Sodium 134 L Potassium 3.5 Chloride 101 Carbon Dioxide 27 BUN 11 Creatinine 0.73 Glucose 82 Calcium 8.2 L - ABG Interpretation ABG results: ABG ABG pH 7.47 pH Units (7.32-7.45) H 06/18/17 20:26 ABG pCO2 44 mmHg (35-45) 06/18/17 20:26 ABG pO2 69 mmHg (85-104) L 06/18/17 20:26 ABG O2 Saturation 95 % (95-98) 06/18/17 20:26 Consult Discharge Plan - Plan Instructions: Heart Failure (DC), Atrial Fibrillation (DC), Pacemaker (DC), Acute Respiratory Distress Syndrome (DC), Anemia (GEN), Pneumonia (DC) Referrals: Senait Wong CNP [Primary Care Provider] - 06/24/17 10:00 am
[2017-06-20] MEDS ORDERED: Ondansetron 4 MG/2 ML VIAL IVP SCH (12:00)
[2017-06-20] MEDS: Vancomycin 750 MG in D5% in Water 250 ML IVPB SCH (16:14)
[2017-06-20] MEDS: *HR* HYDROcodone/Acet 5/325 mg TABLET PO PRN (16:15)
[2017-06-21] MEDS: Acetaminophen 325 MG TABLET PO PRN (02:26)
[2017-06-21 03:46] LABS: Basophils % 0.8 %; Eosinophils # 0.2 K/mcL (0.0-0.6); Eosinophils % 3.9 %; Hematocrit 26.9 % (35.3-44.9); Hemoglobin 7.9 g/dL (11.5-15.4); Immature Granulocytes % 0.4 % (0-4); Lymphocytes # 0.7 K/mcL (0.6-4.6); Lymphocytes % 12.8 %; Mean Corpuscular HGB Conc 29.4 g/dL (31.6-35.5); Mean Corpuscular Hemoglobin 21.8 pg (28.0-33.3); Mean Corpuscular Volume 74.1 fL (83.0-100.0); Mean Platelet Volume 9.9 fL (9.4-12.4); Monocytes # 0.6 K/mcL (0.0-1.3); Monocytes % 10.9 %; Neutrophils # 3.8 K/mcL (1.6-8.9); Platelet Count 191 K/mcL (140-400); Red Blood Count 3.63 M/mcL (3.82-4.97); Red Cell Distribution Width 21.1 % (11.5-14.5); Segmented Neutrophils % 71.2 %
[2017-06-21 04:06] LABS: BUN/Creatinine Ratio 18 (6-26); Blood Urea Nitrogen 13 mg/dL (7-20); Calcium 8.4 mg/dL (8.6-10.8); Carbon Dioxide 26 mEq/L (19-29); Chloride 104 mEq/L (98-109); Glucose 99 mg/dL (70-99); Magnesium 1.5 mg/dL (1.6-2.6); Osmolality,Calculated 286 (280-300); Phosphorous 3.3 mg/dL (2.3-4.7); Potassium 3.5 mEq/L (3.5-4.5); Sodium 138 mEq/L (136-145); eGFR For African Americans > 60 (> 60); eGFR For Non-African Americans > 60 (> 60)
[2017-06-21] MEDS: Albuterol 2.5 MG/3 ML NEBULIZER IH SCH ×3 (04:51→11:21)
[2017-06-21] MEDS: Piperacillin/Tazobactam 3.375 GM/200 ML BAG IVPB SCH ×3 (06:19→23:37)
[2017-06-21] MEDS: Aspirin Enteric Coated 81 MG Tablet PO SCH (08:25)
[2017-06-21] MEDS: Folic Acid 1 MG TABLET PO SCH (08:26)
[2017-06-21] MEDS: GuaiFENesin/Dextromethorphan TABLET PO SCH ×2 (08:26→20:59)
[2017-06-21] MEDS: ERLOTINIB HCL 100 MG PO SCH (08:46)
--- NOTE | 2017-06-21 14:12 | Internal Med Progress Note ---
Date of Encounter: 06/21/17 Time of Encounter: 09:00 - Assessment and plan (1) Anemia Current Visit: No Status: Chronic Assessment and plan: H&H low but acceptable no acute bleeding reported continue to monitor Anemia workup. Qualifiers: Anemia type: iron deficiency Iron deficiency anemia type: other iron deficiency Qualified Code(s): D50.8 - Other iron deficiency anemias (2) Non-small cell lung cancer Current Visit: No Status: Chronic Assessment and plan: S/P RLL lobectomy. Patient will follow-up with oncology as outpatient Qualifiers: Laterality: left Qualified Code(s): C34.92 - Malignant neoplasm of unspecified part of left bronchus or lung (3) Hypertension Current Visit: No Status: Chronic Assessment and plan: Remained BP at lower side, SBP 90-105 critical care consultation appreciated continue to hold all antihypertensive medications if SBP<100 Qualifiers: Hypertension type: essential hypertension Qualified Code(s): I10 - Essential (primary) hypertension (4) Atrial fibrillation with RVR Current Visit: No Status: Acute Assessment and plan: HR around 90 at rest, but tachycardia upon exertion. On low dose Cardizem for rate control. holding BB given low BP readings, may restart if BP tolerate will continue to closely monitor pt not on anticoagulation due to history of metastatic disease to the brain continue ASA, Plavix (5) Acute on chronic heart failure Current Visit: No Status: Acute Assessment and plan: Acute respiratory distress secondary to CHF decompensation or aspiration pneumonia monitor daily weights, strict I/Os fluid restriction diet O2 supplementation as needed holding Lasix given current BP readings Echo on 05/12/17: LVEF 60% Qualifiers: Heart failure type: diastolic Qualified Code(s): I50.33 - Acute on chronic diastolic (congestive) heart failure (6) DVT prophylaxis Current Visit: No Status: Acute Assessment and plan: Heparin SQ (7) LEODAN (acute kidney injury) Current Visit: Yes Status: Resolved Assessment and plan: Resolved hold antihypertensive agents for SBP<100 will closely monitor renal function (8) Fever Current Visit: Yes Status: Resolved Assessment and plan: continue empiric IV abx for concern for aspiration PNA no recurrent episode of diarrhea reported blood cultures prelim report no growth No further fever in last 24 hours. Qualifiers: Fever type: unspecified Qualified Code(s): R50.9 - Fever, unspecified (9) Aspiration pneumonia Current Visit: Yes Status: Acute Assessment and plan: continue empiric IV abx for concern for aspiration PNA no recurrent episode of diarrhea reported blood cultures prelim report no growth Pulmonology consult appreciated. Hold Vanco because no evidence of MRSA. Continue Zosyn. Swallowing evaluation has been done. Qualifiers: Aspiration pneumonia type: unspecified Laterality: unspecified laterality Lung location: unspecified part of lung Qualified Code(s): J69.0 - Pneumonitis due to inhalation of food and vomit (10) Change in mental state Current Visit: Yes Status: Acute Assessment and plan: Probably due to sepsis AAO x 3 today concern for infectious etiology contributing to the acute change in mental status continue empiric IV abx for aspiration PNA CT head and CXR reported no acute abnormalities will continue to closely monitor Qualifiers: Altered mental status type: unspecified Qualified Code(s): R41.82 - Altered mental status, unspecified (11) Sepsis Current Visit: Yes Status: Acute Assessment and plan: Likely secondary to aspiration PNA hypotension can be secondary to volume depletion from diuretic use Lactate negative BP improved, Critical care consultation appreciated will continue empiric IV abx restarted diet blood cultures prelim report: NO growth will continue to closely monitor Qualifiers: Sepsis type: sepsis due to unspecified organism Qualified Code(s): A41.9 - Sepsis, unspecified organism - Time Spent With Patient 25 - 35 minutes - Subjective Interval history: Patient was seen and examined. Still short of breath. No wheezing. No fever. Still BP at lower site. Heart rate is well controlled at rest but has tachycardia on exertion. Blood culture and sputum culture shows no evidence of MRSA infection, will discontinue Vanco, keep zosyn only. Continue supportive treatment with oxygen. - Constitutional Vitals: Temp Pulse Resp BP Pulse Ox 97.8 F 87 16 99/70 97 06/21/17 11:48 06/21/17 11:48 06/21/17 11:48 06/21/17 11:48 06/21/17 11:48 General appearance: Present: A&O X 3 (frail/fatigued ), no acute distress, answers questions appropriately - Head Head exam: Present: atraumatic, normocephalic - Eye Eye exam: Present: PERRL, conjuntiva pink, sclera anicteric Pupils: Present: PERRL - Neck Neck exam general surgery: Present: supple, trachea midline. Absent: lymphadenopathy - Respiratory Respiratory exam: Present: decreased breath sounds (On the right side), CTAB. Absent: accessory muscle use, rales, rhonchi, wheezes - Cardiovascular Cardiovascular exam: Present: RRR, +S1, +S2. Absent: diastolic murmur, gallop, rubs, systolic murmur - GI/Abdominal GI/Abdominal exam: Present: normal bowel sounds, soft, no peritoneal signs. Absent: distended, tenderness - Extremities Exam Extremities exam: Present: warm, radial pulses palpable and symmetrical. Absent : calf tenderness, cyanotic, pedal edema - Neurological Exam Neurological exam: Present: CN II-XII intact, oriented X3, no focal deficits. Absent: pronater drift, facial droop, speech deficit - Skin Skin exam: Present: dry, intact Internal Medicine: Result - Labs CBC & Chem 7: 06/21/17 03:13 06/21/17 03:13 Labs: Short CBC 06/21/17 Range/Units 03:13 WBC 5.3 (4.3-11.1) K/mcL Hgb 7.9 L (11.5-15.4) g/dL Hct 26.9 L (35.3-44.9) % Plt Count 191 (140-400) K/mcL Neutrophils # 3.8 (1.6-8.9) K/mcL BMP 06/21/17 03:13 Sodium 138 Potassium 3.5 Chloride 104 Carbon Dioxide 26 BUN 13 Creatinine 0.71 Glucose 99 Calcium 8.4 L - ABG Interpretation ABG results: ABG ABG pH 7.47 pH Units (7.32-7.45) H 06/18/17 20:26 ABG pCO2 44 mmHg (35-45) 06/18/17 20:26 ABG pO2 69 mmHg (85-104) L 06/18/17 20:26 ABG O2 Saturation 95 % (95-98) 06/18/17 20:26 Consult Discharge Plan - Plan Instructions: Heart Failure (DC), Atrial Fibrillation (DC), Pacemaker (DC), Acute Respiratory Distress Syndrome (DC), Anemia (GEN), Pneumonia (DC) Referrals: Senait Wong CNP [Primary Care Provider] - 06/24/17 10:00 am
[2017-06-21] MEDS: *HR* HYDROcodone/Acet 5/325 mg TABLET PO PRN ×2 (14:26→21:12)
[2017-06-21] MEDS ORDERED: Albuterol 2.5 MG/3 ML NEBULIZER IH PRN (14:34)
[2017-06-22 01:27] LABS: Influenza A PCR Body Fluid NOT DETECTED; Influenza B PCR Body Fluid NOT DETECTED
[2017-06-22 06:12] LABS: Eosinophils % 3.1 %; Immature Granulocytes % 0.6 % (0-4)
[2017-06-22 06:14] LABS: Basophils % 0.8 %; Eosinophils # 0.2 K/mcL (0.0-0.6); Hematocrit 28.2 % (35.3-44.9); Hemoglobin 8.2 g/dL (11.5-15.4); Lymphocytes # 0.7 K/mcL (0.6-4.6); Lymphocytes % 13.8 %; Mean Corpuscular HGB Conc 29.1 g/dL (31.6-35.5); Mean Corpuscular Hemoglobin 21.7 pg (28.0-33.3); Mean Corpuscular Volume 74.6 fL (83.0-100.0); Mean Platelet Volume 10.6 fL (9.4-12.4); Monocytes # 0.5 K/mcL (0.0-1.3); Neutrophils # 3.7 K/mcL (1.6-8.9); Platelet Count 212 K/mcL (140-400); Red Blood Count 3.78 M/mcL (3.82-4.97); Red Cell Distribution Width 21.5 % (11.5-14.5); Segmented Neutrophils % 71.7 %
[2017-06-22] MEDS: Piperacillin/Tazobactam 3.375 GM/200 ML BAG IVPB SCH ×3 (06:15→23:15)
[2017-06-22 06:25] LABS: BUN/Creatinine Ratio 14 (6-26); Blood Urea Nitrogen 9 mg/dL (7-20); Calcium 9.2 mg/dL (8.6-10.8); Carbon Dioxide 28 mEq/L (19-29); Chloride 105 mEq/L (98-109); Glucose 92 mg/dL (70-99); Osmolality,Calculated 286 (280-300); Potassium 3.8 mEq/L (3.5-4.5); Sodium 139 mEq/L (136-145); eGFR For African Americans > 60 (> 60); eGFR For Non-African Americans > 60 (> 60)
[2017-06-22 06:26] LABS: % Iron Saturation 6 % (15-50); Iron 16 mcg/dL (50-170); Transferrin 194 mg/dL (180-382)
[2017-06-22 06:46] LABS: Anisocytosis 2+ (Not Present); Hypochromasia Present (Not Present); Schistocytes 1+ (Not Present)
[2017-06-22 06:47] LABS: Burr Cells 1+ (Not Present); Microcytosis Present (Not Present); Platelet Estimate Normal (Normal)
[2017-06-22 06:49] LABS: Ferritin 116 ng/ml (5-204)
[2017-06-22 07:01] LABS: Folate 15.2 ng/mL (7.0-31.4)
[2017-06-22 07:29] LABS: RSV PCR Body Fluid NOT DETECTED; RVP Body Fluid Source NOT PROVIDED
[2017-06-22] MEDS: Aspirin Enteric Coated 81 MG Tablet PO SCH (09:16)
[2017-06-22] MEDS: Folic Acid 1 MG TABLET PO SCH (09:16)
[2017-06-22] MEDS: GuaiFENesin/Dextromethorphan TABLET PO SCH ×2 (09:16→21:09)
[2017-06-22] MEDS: ERLOTINIB HCL 100 MG PO SCH (09:29)
[2017-06-22] MEDS: *HR* HYDROcodone/Acet 5/325 mg TABLET PO PRN (11:46)
--- NOTE | 2017-06-22 12:39 | Internal Med Progress Note ---
Date of Encounter: 06/22/17 Time of Encounter: 12:15 - Assessment and plan (1) Sepsis Current Visit: Yes Status: Resolved Assessment and plan: Likely secondary to aspiration PNA Lactate negative BP improved will continue empiric IV abx blood cultures prelim report: NO growth will continue to closely monitor Qualifiers: Sepsis type: sepsis due to unspecified organism Qualified Code(s): A41.9 - Sepsis, unspecified organism (2) Change in mental state Current Visit: Yes Status: Resolved Assessment and plan: Probably due to sepsis AAO x 3 concern for infectious etiology contributing to the acute change in mental status continue empiric IV abx for aspiration PNA CT head and CXR reported no acute abnormalities will continue to closely monitor Qualifiers: Altered mental status type: unspecified Qualified Code(s): R41.82 - Altered mental status, unspecified (3) Atrial fibrillation with RVR Current Visit: No Status: Acute Assessment and plan: HR around 90 at rest, but tachycardia upon exertion. On low dose Cardizem for rate control. restart low dose Metoprolol 12.5mg PO BID, hold if SBP<100 will continue to closely monitor pt not on anticoagulation due to history of metastatic disease to the brain continue ASA, Plavix (4) Acute on chronic heart failure Current Visit: No Status: Acute Assessment and plan: Acute respiratory distress secondary to CHF decompensation or aspiration pneumonia monitor daily weights, strict I/Os fluid restriction diet O2 supplementation as needed will restart low dose lasix (lasix 20mg PO qd) Echo on 05/12/17: LVEF 60% Qualifiers: Heart failure type: diastolic Qualified Code(s): I50.33 - Acute on chronic diastolic (congestive) heart failure (5) LEODAN (acute kidney injury) Current Visit: Yes Status: Resolved Assessment and plan: Resolved hold antihypertensive agents for SBP<100 will closely monitor renal function (6) Anemia Current Visit: No Status: Chronic Assessment and plan: H&H low but acceptable no acute bleeding reported continue to monitor Anemia workup. Qualifiers: Anemia type: iron deficiency Iron deficiency anemia type: other iron deficiency Qualified Code(s): D50.8 - Other iron deficiency anemias (7) Hypertension Current Visit: No Status: Chronic Assessment and plan: BP within acceptable range continue to closely monitor restarting low dose BB and lasix continue to hold all antihypertensive medications if SBP<100 Qualifiers: Hypertension type: essential hypertension Qualified Code(s): I10 - Essential (primary) hypertension (8) Non-small cell lung cancer Current Visit: No Status: Chronic Assessment and plan: S/P RLL lobectomy. Patient will follow-up with oncology as outpatient Qualifiers: Laterality: left Qualified Code(s): C34.92 - Malignant neoplasm of unspecified part of left bronchus or lung (9) DVT prophylaxis Current Visit: No Status: Acute Assessment and plan: Heparin SQ (10) Fever Current Visit: Yes Status: Resolved Assessment and plan: continue empiric IV abx for concern for aspiration PNA no recurrent episode of diarrhea reported blood cultures prelim report no growth No further fever in last 24 hours. (11) Aspiration pneumonia Current Visit: Yes Status: Acute Assessment and plan: continue empiric IV abx for concern for aspiration PNA no recurrent episode of diarrhea reported blood cultures prelim report no growth Pulmonology consult appreciated. discontinue Vanco because no evidence of MRSA. Continue Zosyn. Swallowing evaluation has been done. Qualifiers: Aspiration pneumonia type: unspecified Laterality: unspecified laterality Lung location: unspecified part of lung Qualified Code(s): J69.0 - Pneumonitis due to inhalation of food and vomit (12) Electrolyte abnormality Current Visit: Yes Status: Resolved - Subjective Interval history: Patient seen and examined with family present at bedside. reports of feeling weak and noted to have bibasilar crackles rate better controlled hypotension resolved PT/OT evaluation recommended inpatient rehab drug abuse social worker consultation requested for placement - Constitutional Vitals: Temp Pulse Resp BP Pulse Ox 97.4 F L 69 18 140/98 93 06/22/17 11:54 06/22/17 11:54 06/22/17 11:54 06/22/17 11:54 06/22/17 11:54 General appearance: Present: A&O X 3 (frail/fatigued ), no acute distress, answers questions appropriately - Head Head exam: Present: atraumatic, normocephalic - Respiratory Respiratory exam: Absent: respiratory distress, wheezes (diffuse crackles) - Cardiovascular Cardiovascular exam: Present: irregular rhythm, +S1, +S2 - GI/Abdominal GI/Abdominal exam: Present: normal bowel sounds, soft, no peritoneal signs. Absent: distended, tenderness - Extremities Exam Extremities exam: Present: pedal edema (trace pedal edema), warm, radial pulses palpable and symmetrical. Absent: calf tenderness, cyanotic - Neurological Exam Neurological exam: Present: alert, oriented X3 - Psychiatric Psychiatric exam: Present: normal affect, normal mood Internal Medicine: Result - Labs CBC & Chem 7: 06/22/17 05:24 06/22/17 05:24 Labs: Short CBC 06/22/17 Range/Units 05:24 WBC 5.2 (4.3-11.1) K/mcL Hgb 8.2 L (11.5-15.4) g/dL Hct 28.2 L (35.3-44.9) % Plt Count 212 (140-400) K/mcL Neutrophils # 3.7 (1.6-8.9) K/mcL BMP 06/22/17 05:24 Sodium 139 Potassium 3.8 Chloride 105 Carbon Dioxide 28 BUN 9 Creatinine 0.64 Glucose 92 Calcium 9.2 - ABG Interpretation ABG results: ABG ABG pH 7.47 pH Units (7.32-7.45) H 06/18/17 20:26 ABG pCO2 44 mmHg (35-45) 06/18/17 20:26 ABG pO2 69 mmHg (85-104) L 06/18/17 20:26 ABG O2 Saturation 95 % (95-98) 06/18/17 20:26 Consult Discharge Plan - Plan Instructions: Heart Failure (DC), Atrial Fibrillation (DC), Pacemaker (DC), Acute Respiratory Distress Syndrome (DC), Anemia (GEN), Pneumonia (DC) Referrals: Senait Wong CNP [Primary Care Provider] - 06/24/17 10:00 am
[2017-06-22] MEDS: Furosemide 20 MG TABLET PO SCH (13:38)
[2017-06-23 05:15] LABS: Hemoglobin 9.2 g/dL (11.5-15.4)
[2017-06-23 05:16] LABS: Basophils % 0.5 %; Eosinophils # 0.2 K/mcL (0.0-0.6); Hematocrit 31.6 % (35.3-44.9); Immature Granulocytes % 0.5 % (0-4); Lymphocytes % 12.7 %; Mean Corpuscular HGB Conc 29.1 g/dL (31.6-35.5); Mean Corpuscular Hemoglobin 21.7 pg (28.0-33.3); Mean Corpuscular Volume 74.5 fL (83.0-100.0); Mean Platelet Volume 10.2 fL (9.4-12.4); Monocytes # 0.8 K/mcL (0.0-1.3); Monocytes % 9.7 %; Platelet Count 214 K/mcL (140-400); Red Blood Count 4.24 M/mcL (3.82-4.97); Segmented Neutrophils % 74.6 %
[2017-06-23 05:40] LABS: BUN/Creatinine Ratio 12 (6-26); Blood Urea Nitrogen 7 mg/dL (7-20); Calcium 8.5 mg/dL (8.6-10.8); Carbon Dioxide 25 mEq/L (19-29); Chloride 105 mEq/L (98-109); Glucose 80 mg/dL (70-99); Magnesium 1.3 mg/dL (1.6-2.6); Osmolality,Calculated 287 (280-300); Phosphorous 2.8 mg/dL (2.3-4.7); Potassium 3.6 mEq/L (3.5-4.5); Sodium 140 mEq/L (136-145); eGFR For African Americans > 60 (> 60); eGFR For Non-African Americans > 60 (> 60)
[2017-06-23 05:59] LABS: Burr Cells 2+ (Not Present); Platelet Estimate Normal (Normal); Poikilocytosis 2+ (Not Present)
[2017-06-23 06:00] LABS: Anisocytosis 2+ (Not Present)
[2017-06-23] MEDS: Aspirin Enteric Coated 81 MG Tablet PO SCH (08:06)
[2017-06-23] MEDS: GuaiFENesin/Dextromethorphan TABLET PO SCH (08:06)
[2017-06-23] MEDS: Folic Acid 1 MG TABLET PO SCH (08:06)
[2017-06-23] MEDS: Furosemide 20 MG TABLET PO SCH (08:07)
[2017-06-23] MEDS: Piperacillin/Tazobactam 3.375 GM/200 ML BAG IVPB SCH (08:07)
[2017-06-23] MEDS: ERLOTINIB HCL 100 MG PO SCH (08:12)
--- NOTE | 2017-06-23 12:10 | Discharge Summary ---
Date of Encounter: 06/23/17 Time of Encounter: 11:40 - Discharge Diagnosis (1) Sepsis Priority: Primary Status: Resolved Qualifiers: Sepsis type: sepsis due to unspecified organism Qualified Code(s): A41.9 - Sepsis, unspecified organism (2) Change in mental state Priority: Primary Status: Resolved Qualifiers: Altered mental status type: unspecified Qualified Code(s): R41.82 - Altered mental status, unspecified (3) Atrial fibrillation with RVR Priority: Secondary Status: Chronic (4) Acute on chronic heart failure Priority: Primary Status: Acute Qualifiers: Heart failure type: diastolic Qualified Code(s): I50.33 - Acute on chronic diastolic (congestive) heart failure (5) LEODAN (acute kidney injury) Priority: Secondary Status: Resolved (6) Anemia Priority: Secondary Status: Chronic Qualifiers: Anemia type: iron deficiency Iron deficiency anemia type: other iron deficiency Qualified Code(s): D50.8 - Other iron deficiency anemias (7) Hypertension Priority: Secondary Status: Chronic Qualifiers: Hypertension type: essential hypertension Qualified Code(s): I10 - Essential (primary) hypertension (8) Non-small cell lung cancer Priority: Secondary Status: Chronic Qualifiers: Laterality: left Qualified Code(s): C34.92 - Malignant neoplasm of unspecified part of left bronchus or lung (9) DVT prophylaxis Priority: Secondary Status: Acute (10) Fever Priority: Secondary Status: Resolved (11) Aspiration pneumonia Priority: Secondary Status: Acute Qualifiers: Aspiration pneumonia type: unspecified Laterality: unspecified laterality Lung location: unspecified part of lung Qualified Code(s): J69.0 - Pneumonitis due to inhalation of food and vomit (12) Electrolyte abnormality Priority: Secondary Status: Resolved - Discharge Medications Prescriptions: Gabapentin [Neurontin] 600 tab PO BID #20 capsule HYDROcodone/Acet 5/325 mg [[place] 5-325 mg] 1 tab PO TID PRN #15 tab PRN Reason: moderate to severe pain levoFLOXacin [Levaquin] 750 mg PO DAILY #4 tablet Home Medications: Albuterol Neb [Proventil Neb] 2.5 mg IH Q4HR 05/21/15 [History] Aspirin [Adult Low Dose Aspirin EC] 81 mg PO DAILY 05/21/15 [History] Calcium Carbonate [Tums] 500 mg PO DAILY 05/21/15 [History] Docusate [Colace] 100 mg PO BID 05/21/15 [History] Oxygen 1 each .ROUTE AD 10/28/16 [History] Clopidogrel [Plavix] 75 mg PO DAILY #30 tablet 01/13/17 [Rx] Ranitidine HCl [Zantac] 150 mg PO BID #180 tablet 02/10/17 [Rx] Erlotinib HCl [Tarceva] 100 mg PO DAILY 30 Days tablet 02/26/17 [Rx] Atorvastatin [Lipitor] 40 mg PO DAILY 03/19/17 [History] Folic Acid 1 mg PO DAILY #90 tablet 05/06/17 [Rx] Pantoprazole Sodium [Protonix] 40 mg PO DAILY 05/11/17 [History] Ferrous Sulfate 325 mg PO BID #60 tablet 05/15/17 [Rx] Sucralfate [Carafate] 1 gm PO BID 06/22/17 [History] Diltiazem [Cardizem] 30 mg PO Q6HR tablet 06/23/17 [Rx] Furosemide [Lasix] 20 mg PO DAILY tablet 06/23/17 [Rx] Gabapentin [Neurontin] 600 tab PO BID #20 capsule 06/23/17 [Rx] GuaiFENesin/Dextromethorphan [Mucinex Dm] 1 each PO BID tab.er.12h 06/23/17 [Rx ] HYDROcodone/Acet 5/325 mg [[place] 5-325 mg] 1 tab PO TID PRN #15 tab 06/23/17 [Rx ] Metoprolol [Lopressor] 12.5 mg PO BID tablet 06/23/17 [Rx] levoFLOXacin [Levaquin] 750 mg PO DAILY #4 tablet 06/23/17 [Rx] Allergies/Adverse Reactions: 3 Allergy/AdvReac Type Severity Reaction Status Date / Time No Known Allergies Allergy Verified 03/19/17 09:01 Date of admission: 06/16/17 17:16 Primary care physician: Senait Wong CNP Consults: 06/17/17 08:15 Consult to Cardiology [CONS] Routine Comment: Consulting Provider: Cardiology Loni Reason for Consult: chf exacerbation Call Completed: Yes 06/18/17 15:55 Consult to Speech Therapy [CONS] Stat Comment: Evaluate, develop and implement POC Reason for Consult: difficulty with swallow Call Completed: Yes 06/19/17 08:40 Consult to Critical Care [CONS] Routine Consulting Provider: Pulm Crit Care [facility] Sleep Loni Reason for Consult: septic shock Call Completed: Yes 06/19/17 09:38 Consult to Invasive Line Access Team [CONS] Routine Reason for Consult: need 2nd IV line Line Type: EPIV Time Notified: 09:38 Call Completed: Yes 06/21/17 12:33 Consult to Occupational Therapy [CONS] Routine Comment: Evaluate, develop and implement POC Reason for Consult: Weakness Consult to Physical Therapy [CONS] Routine Comment: Evaluate, develop and implement POC Reason for Consult: Weakness 06/22/17 09:37 Consult to Drain Cleaner Plumber [CONS] Routine Reason for SW Consult: PT recommending inpatient swing bed Discharging clinician: Sarah Adams Anticipated date of discharge: 06/23/17 - Patient Status Disposition: Transfer Other Condition: Good Functional capacity at discharge: uses cane/walker Overall status at discharge: patient is back to baseline - Discharge Instructions Instructions: Heart Failure (DC), Atrial Fibrillation (DC), Pacemaker (DC), Acute Respiratory Distress Syndrome (DC), Anemia (GEN), Pneumonia (DC) Follow Up With: Senait Wong CNP [Primary Care Provider] - 06/24/17 10:00 am Additional Instructions: Please follow up with your primary care physician within five days after your discharge from the hospital. Please continue oral antibiotics for four more days. Your home medications have been changed as follows: 1. Cardizem changed to 30mg every 6 hours, Metoprolol reduced to 12.5mg twice a day, Lasix reduced to 20mg once a day. Your medications will be readjusted as needed by your primary care physician and the physician at the inpatient rehab facility. continue oxygen support at all times. resume all other medications as prescribed by your primary care physician. - Diet and Activity Activity: as per physical therapy, wear oxygen at all times, wear oxygen at night Diet: low fat, low cholesterol, low salt diet Hospital course: Ms. Wong is a 71 year old female with PMH Of lung ca s/p right lobectomy with metastatic disease to the brain, COPD on LTOT, Afib, CHF who was admitted for management of acute respiratory distress secondary to CHF decompensation. Pt was started on IV diuresis to which she responded initially, however her hospital course was further complicated by sepsis with hypotension likely secondary to aspiration PNA. She required colloid therapy to maintain BP. Her antihypertensives, diuretics, and AV keturah agents were all placed on hold. Speech therapy was consulted and dietary modifications were made as per their recommendations. As pt's BP improved, her home medications were slowly restarted. She is currently at her baseline mental status AAO x 3. She was evaluated by physical therapy and inpatient rehab was recommended. Pt is currently hemodynamically stable and will be discharged to inpatient swing bed. Patient and her family are in agreement with the discharge care and plan. Pt will be discharged to inpatient swing bed today. - Time Spent with Patient Total time spent providing and/or coordinating discharge services: Greater than 30 minutes - Constitutional Vitals: Temp Pulse Resp BP Pulse Ox 97.6 F 74 15 103/82 95 06/23/17 07:00 06/23/17 07:00 06/23/17 07:00 06/23/17 07:00 06/23/17 07:00 General appearance: Present: A&O X 3 (Frail ), no acute distress, answers questions appropriately - Head Head exam: Present: atraumatic, normocephalic - Eye Eye exam: Present: conjuntiva pink, sclera anicteric - Respiratory Respiratory exam: Absent: accessory muscle use, respiratory distress, wheezes, tachypnea - Cardiovascular Cardiovascular exam: Present: RRR, +S1, +S2. Absent: diastolic murmur, gallop, rubs, systolic murmur - GI/Abdominal GI/Abdominal exam: Present: normal bowel sounds, soft, no peritoneal signs. Absent: distended, tenderness - Extremities Exam Extremities exam: Present: warm, radial pulses palpable and symmetrical. Absent : calf tenderness, pedal edema - Neurological Exam Neurological exam: Present: alert, oriented X3 - Psychiatric Psychiatric exam: Present: normal affect, normal mood
--- NOTE | 2017-06-23 12:19 | Physician Discharge Referral ---
ExtendedCare Referral Info Transfer To: Inpatient swing bed Provider in Charge after Transfer: PCP - Diagnosis (1) Sepsis Priority: Secondary Status: Resolved (2) Change in mental state Priority: Secondary Status: Resolved (3) Atrial fibrillation with RVR Priority: Secondary Status: Chronic (4) Acute on chronic heart failure Priority: Primary Status: Acute (5) LEODAN (acute kidney injury) Priority: Secondary Status: Resolved (6) Anemia Priority: Secondary Status: Chronic (7) Hypertension Priority: Secondary Status: Chronic (8) Non-small cell lung cancer Priority: Secondary Status: Chronic (9) DVT prophylaxis Priority: Secondary Status: Acute (10) Fever Priority: Secondary Status: Resolved (11) Aspiration pneumonia Priority: Secondary Status: Acute (12) Electrolyte abnormality Priority: Secondary Status: Resolved - Transfer Medications Prescriptions: Gabapentin [Neurontin] 600 tab PO BID #20 capsule HYDROcodone/Acet 5/325 mg [[place] 5-325 mg] 1 tab PO TID PRN #15 tab PRN Reason: moderate to severe pain levoFLOXacin [Levaquin] 750 mg PO DAILY #4 tablet Home Medications: Albuterol Neb [Proventil Neb] 2.5 mg IH Q4HR 05/21/15 [History] Aspirin [Adult Low Dose Aspirin EC] 81 mg PO DAILY 05/21/15 [History] Calcium Carbonate [Tums] 500 mg PO DAILY 05/21/15 [History] Docusate [Colace] 100 mg PO BID 05/21/15 [History] Oxygen 1 each .ROUTE AD 10/28/16 [History] Clopidogrel [Plavix] 75 mg PO DAILY #30 tablet 01/13/17 [Rx] Ranitidine HCl [Zantac] 150 mg PO BID #180 tablet 02/10/17 [Rx] Erlotinib HCl [Tarceva] 100 mg PO DAILY 30 Days tablet 02/26/17 [Rx] Atorvastatin [Lipitor] 40 mg PO DAILY 03/19/17 [History] Folic Acid 1 mg PO DAILY #90 tablet 05/06/17 [Rx] Pantoprazole Sodium [Protonix] 40 mg PO DAILY 05/11/17 [History] Ferrous Sulfate 325 mg PO BID #60 tablet 05/15/17 [Rx] Sucralfate [Carafate] 1 gm PO BID 06/22/17 [History] Diltiazem [Cardizem] 30 mg PO Q6HR tablet 06/23/17 [Rx] Furosemide [Lasix] 20 mg PO DAILY tablet 06/23/17 [Rx] Gabapentin [Neurontin] 600 tab PO BID #20 capsule 06/23/17 [Rx] GuaiFENesin/Dextromethorphan [Mucinex Dm] 1 each PO BID tab.er.12h 06/23/17 [Rx ] HYDROcodone/Acet 5/325 mg [[place] 5-325 mg] 1 tab PO TID PRN #15 tab 06/23/17 [Rx ] Metoprolol [Lopressor] 12.5 mg PO BID tablet 06/23/17 [Rx] levoFLOXacin [Levaquin] 750 mg PO DAILY #4 tablet 06/23/17 [Rx] Allergies/Adverse Reactions: 3 Allergy/AdvReac Type Severity Reaction Status Date / Time No Known Allergies Allergy Verified 03/19/17 09:01 - Respiratory Orders Smoking Cessation: Smoking cessation has been advised. For more information, call the [employer] Quit Line at 6-586-GCDM-NOW. - Rehabiliation Orders Other: Please follow up with your primary care physician within five days after your discharge from the hospital. Please continue oral antibiotics for four more days. Your home medications have been changed as follows: 1. Cardizem changed to 30mg every 6 hours, Metoprolol reduced to 12.5mg twice a day, Lasix reduced to 20mg once a day. Your medications will be readjusted as needed by your primary care physician and the physician at the inpatient rehab facility. continue oxygen support at all times. resume all other medications as prescribed by your primary care physician. Diet: Mechanically altered diet with nectar thick liquids CERTIFICATION: I certify that the transfer of the above named patient to an Extended Care Facility is necessary for the continuing treatment of the diagnosis listed. The above information is true and accurate reflection of patient's current condition. Confidential - Redisclosure prohibited without a patient's written consent.
[2017-06-23 16:03] VITALS: BP 107/60
== END 2017-06-23 16:52 | disposition other institution (70) | DRG 291 ==
LOC: EMEROO 12:40 → 2NENU 12:40 → SUATTDRO 17:16
PROVIDERS: ADMIT Internal Medicine; ATTEND Internal Medicine

== ENCOUNTER 2017-07-20 10:53 | Inpatient (IN) ==
[2017-07-20] MEDS ORDERED: Ipratropium/Albuterol Neb 3 ML IH ONE (11:15)
--- NOTE | 2017-07-20 11:19 | Emergency Department Note ---
Disposition Clinical Impression: Respiratory distress, Atrial fibrillation with RVR Pneumonia Qualifiers: Pneumonia type: due to unspecified organism Laterality: left Lung location: lower lobe of lung Qualified Code(s): J18.1 - Lobar pneumonia, unspecified organism Disposition: Admitted As Inpatient Condition: Fair General Adult HPI - General Chief complaint: ED Shortness of Breath/Dyspnea Stated complaint: shortness of breath Time Seen by Provider: 07/20/17 11:15 Source: EMS Mode of arrival: ambulatory Limitations: no limitations Nursing Notes Reviewed: Yes Vital Signs Reviewed: Yes - History of Present Illness HPI Narrative: 71-year-old female with a history of COPD presented from a [facility] for dyspnea. Symptom onset was 2 days ago. Denies any fevers or cough. Patient is not able to provide an accurate history due to the distress. Patient denies any chest pain. Denies any abdominal pain. Report per EMS was that she was hypoxic in the 60s upon arrival. Patient states she does not wear oxygen at baseline. Patient received 125 of Solu-Medrol per EMS prehospital. Patient also received a breathing treatment. Pain Scale: 0 - Related Data Home Medications Medication Instructions Recorded Confirmed Albuterol Neb [Proventil Neb] 2.5 mg IH Q4HR 05/21/15 07/20/17 Calcium Carbonate [Tums] 500 mg PO DAILY 05/21/15 07/20/17 Docusate [Colace] 100 mg PO BID 05/21/15 07/20/17 Oxygen 2 l NS AD 10/28/16 07/20/17 Atorvastatin [Lipitor] 40 mg PO HS 03/19/17 07/20/17 Pantoprazole Sodium [Protonix] 40 mg PO DAILY 05/11/17 07/20/17 Sucralfate [Carafate] 1 gm PO BID 06/22/17 07/20/17 Aspirin 81 mg PO DAILY 07/20/17 07/20/17 Nystatin POWDER [Nystop] 1 appl TP AD 07/20/17 07/20/17 Previous Rx's Medication Instructions Recorded Clopidogrel [Plavix] 75 mg PO DAILY #30 tablet 01/13/17 Ranitidine HCl [Zantac] 150 mg PO BID #180 tablet 02/10/17 Erlotinib HCl [Tarceva] 100 mg PO DAILY 30 Days tablet 02/26/17 Folic Acid 1 mg PO DAILY #90 tablet 05/06/17 Ferrous Sulfate 325 mg PO BID #60 tablet 05/15/17 Diltiazem [Cardizem] 30 mg PO Q6HR tablet 06/23/17 Furosemide [Lasix] 20 mg PO DAILY tablet 06/23/17 Gabapentin [Neurontin] 600 tab PO BID #20 capsule 06/23/17 GuaiFENesin/Dextromethorphan 1 each PO BID tab.er.12h 06/23/17 [Mucinex Dm] HYDROcodone/Acet 5/325 mg [[place] 1 tab PO TID PRN #15 tab 06/23/17 5-325 mg] Metoprolol [Lopressor] 12.5 mg PO BID tablet 06/23/17 Allergies Allergy/AdvReac Type Severity Reaction Status Date / Time No Known Allergies Allergy Verified 03/19/17 09:01 All systems ED: reviewed and negative except as stated. Constitutional: Reports: as per HPI. Denies: fever Eyes: Reports: as per HPI ENT ED: Reports: as per HPI Cardiovascular: Reports: as per HPI. Denies: chest pain Respiratory: Reports: as per HPI, dyspnea. Denies: cough Gastrointestinal: Reports: as per HPI Genitourinary: Reports: as per HPI Musculoskeletal: Reports: as per HPI Integumentary: Reports: as per HPI Neurological: Reports: as per HPI Psychiatric: Reports: as per HPI Endocrine: Reports: as per HPI Hematological/Lymphatic: Reports: as per HPI Past Medical History - Past Medical History Medical history: Reports: atrial fibrillation, cancer, COPD, GERD, myocardial infarction, seizures Surgical history: Reports: angioplasty/stent, cancer surgery, cholecystectomy Psychiatric history: Reports: anxiety, depression - Social History Smoking Status: Former smoker Smokeless Tobacco Status: No Alcohol use: Reports: none Drug use: Reports: none Physical Exam - General Limitations: no limitations General appearance: alert, in no apparent distress - Head Head exam: atraumatic, normocephalic, normal inspection - Eye Eye exam: Present: normal appearance, EOMI - ENT ENT exam: normal exam, mucous membranes moist - Neck Neck exam: Present: normal inspection, trachea midline - Chest Chest inspection: Present: normal inspection - Respiratory Respiratory exam: Present: respiratory distress, wheezes (Diffuse inspiratory and expiratory wheezes with scattered rhonchi) - Cardiovascular Cardiovascular exam: Present: regular rate. Absent: systolic murmur - Abdominal Exam Abdominal exam: Present: soft, Non-Tender. Absent: tenderness, distention, guarding, rebound - Extremities Exam Extremities exam: Present: normal inspection. Absent: pedal edema - Expanded Upper Extremity Exam Arm exam: Present: other (Upper extremity asymmetric swelling on the left.) - Back Exam Back exam: Present: normal inspection. Absent: CVA tenderness (R), CVA tenderness (L) - Neurological Exam Neurological exam: Present: alert, oriented X3, CN II-XII intact - Skin Skin exam: Present: warm, dry, intact, normal color Course Course Narrative: Patient seen and examined on arrival. Patient had 1-2 word conversational dyspnea. Patient received steroids prehospital. We will continue with respiratory support with BiPAP as well as triple nebs. Patient will also get chest x-ray EKG and labs. Patient will likely be admitted for respiratory distress. - Reevaluation(s) Reevaluation #1: Patient seen and evaluated. Patient continues to have some respiratory distress. Patient's heart rate is irregular in the 150s to 60s. Patient's blood pressures in the 120s. Patient will receive Cardizem. Chest x-ray reveals collapse of the right lobe. Discuss advanced directives with the family at bedside. Patient is not of sound mind to make decisions. Family provides additional history stating that she has a history of small cell lung cancer. Time: 11:51 Reevaluation #2: Patient was not given a Cardizem due to a drop in her blood pressure. Patient received 500 mL bolus of fluids. Patient's blood pressure improved. Patient's heart rate gradually improved. Will continue to gradually fluid resuscitate. Family is unaware the patient's CODE STATUS. Will attempt to contact [facility]p facility at [facility] regarding patient's CODE STATUS. Time: 12:14 Reevaluation #3: Patient is a full code verified.. Patient does have asymmetric swelling of the upper extremities. Bedside ultrasound shows noncompressibility of left upper extremity vein. Patient has no contraindications for heparin. Patient was on heparin as there is concern for pulmonary embolism. Patient cannot get a CTA at this point because of BiPAP and not being able to lie supine. Patient will be treated for pulmonary embolism. Time: 12:27 Additional Reevaluation(s): 1306 patient was and benefits of intubation and central line placement. Will obtain central line informed consent. Vital Signs Temperature 97.8 F 07/20/17 10:54 Pulse Rate 131 07/20/17 10:54 Respiratory Rate 22 07/20/17 10:54 Blood Pressure 157/123 07/20/17 10:54 O2 Sat by Pulse Oximetry 100 07/20/17 10:54 Temperature 98.1 F 07/21/17 12:00 Pulse Rate 130 07/21/17 12:00 Respiratory Rate 20 07/21/17 12:00 Blood Pressure 111/79 07/21/17 12:00 O2 Sat by Pulse Oximetry 98 07/21/17 12:00 Oxygen Delivery Oxygen Delivery Bipap Procedures - Central Line Placement Right Femoral Central Line Inserted*: Yes Central Line Catheter Replacement*: Yes Central Line Insertion: emergent Consent Obtained: verbal consent, written consent Procedural Pause: verify patient name and date of , timeout performed per policy, casa and assess the site, assemble equipment and verify supplies, perform hand hygiene Patient Placed on Monitor/Pulse Ox: Yes During the Procedure: clinician is wearing sterile gloves, cap, mask,& gown during insertion, sterile field and sterile technique are maintained, patient's face is covered with drape or mask and wearing a cap, everyone in room is wearing a mask Central Line Prep: Povidone-Iodine 1% Prep the Procedure Site: apply chloraprep to the skin using a back and forth scrubbing motion, apply chloraprep for 30 seconds (upper body), 1-2 min ( femoral sites), drape the patient with a full body drape Local Anesthetic: lidocaine 1%, with epi Amount of anesthesia used (mL): 5 Ultrasound Used for Placement: Yes Central Line Lumen Inserted: triple Post Procedure: sutured in place, good blood return, all ports aspirated, flushed, capped, sterile dressing applied, guide wire removed and visualized Patient Tolerated Procedure: well Complications: none Medical Decision Making - MDM Narrative Medical decision making narrative: 71-year-old female percent for evaluation of respiratory distress. Patient has a history of COPD, CHF. Patient was immediately placed on BiPAP. Patient appear to have increased work of breathing. Patient was treated with steroids as well as nebs. Patient is a full code verified per family as well as patient bedside. Patient did have A. fib with RVR and was hypotensive. The patient received calcium. Patient also received IV fluid hydration. Concerns of ossicle secondary infection. Patient also has edema of the upper extremity swell as lower left extremity. Bedside ultrasound did not show incompressibility in the vein system. Patient was started on heparin due to concerns of pulmonary embolism. Patient will get formal ultrasound studies. Patient also get a formal echo. Patient work of breathing improved during emergency department stay. However given the patient's hypotension and need for multiple medications and possible pressors central line in the right femoral vein was placed. Consent was signed. Patient tolerated the procedure well. Patient was started on triple antibiotics given concerns for secondary infection. [place] recommended amiodarone for cardioversion. Patient was started on bolus and then a drip. Patient was gradually improve between off the BiPAP. Patient registrars status improved. However given the severity of the patient's illness upon initial presentation concerns for decompensation and would recommend intensive care monitoring. - Medical Records Medical records reviewed: Yes I reviewed the patient's medical records. - Lab Data Lab results reviewed: Yes I reviewed the patient's lab results. Result diagrams: 07/21/17 03:17 07/21/17 03:17 Lab Results 07/20/17 07/20/17 07/20/17 Range/Units 11:34 11:34 11:34 WBC 14.1 H (4.3-11.1) K/mcL RBC 5.02 H (3.82-4.97) M/mcL Hgb 12.2 (11.5-15.4) g/dL Hct 42.0 (35.3-44.9) % MCV 83.7 D (83.0-100.0) fL MCH 24.3 L (28.0-33.3) pg MCHC 29.0 L (31.6-35.5) g/dL RDW 28.4 H (11.5-14.5) % Plt Count 184 (140-400) K/mcL MPV 10.5 (9.4-12.4) fL Immature Gran % 0.4 (0-4) % Seg Neutrophils % 68.7 % Lymphocytes % 20.1 % Monocytes % 9.4 % Eosinophils % 1.1 % Basophils % 0.3 % Neutrophils # 9.7 H (1.6-8.9) K/mcL Lymphocytes # 2.8 (0.6-4.6) K/mcL Monocytes # 1.3 (0.0-1.3) K/mcL Eosinophils # 0.2 (0.0-0.6) K/mcL Basophils # 0.0 (0.0-0.2) K/mcL Platelet Estimate Normal (Normal) Hypochromasia Present A (Not Present) Anisocytosis 2+ A (Not Present) Microcytosis Present A (Not Present) PT (9.4-12.1) Seconds INR APTT (26.0-36.0) Seconds ABG pH (7.32-7.45) pH Units ABG pCO2 (35-45) mmHg ABG pO2 (85-104) mmHg ABG HCO3 (21-27) mEq/L ABG Total CO2 (20-26) mEq/L ABG O2 Saturation (95-98) % ABG Base Excess (-2 to 3) mEq/L Respiration Rate O2 Delivery Device Inspired O2 (1-15=lpm [id number]=%) PEEP cm H2O Sodium 135 L (136-145) mEq/L Potassium 3.8 (3.5-5.1) mEq/L Chloride 89 L (98-107) mEq/L Carbon Dioxide 40 H* (23-29) mEq/L BUN 10 (8-23) mg/dL Creatinine 0.65 (0.60-1.20) mg/dL Est GFR ( Amer) > 60 (> 60) Est GFR (Non-Af Amer) > 60 (> 60) BUN/Creatinine Ratio 15 (6-26) Glucose 111 H (70-105) mg/dL Calculated Osmolality 280 (280-300) Lactic Acid 2.6 H (0.5-2.2) mmol/L Calcium 9.2 (8.6-10.3) mg/dL Troponin I (< 0.04) ng/mL B-Natriuretic Peptide (Less than 100) pg/mL Person Notif of Crit 07/20/17 07/20/17 07/20/17 Range/Units 11:34 11:34 11:34 WBC (4.3-11.1) K/mcL RBC (3.82-4.97) M/mcL Hgb (11.5-15.4) g/dL Hct (35.3-44.9) % MCV (83.0-100.0) fL MCH (28.0-33.3) pg MCHC (31.6-35.5) g/dL RDW (11.5-14.5) % Plt Count (140-400) K/mcL MPV (9.4-12.4) fL Immature Gran % (0-4) % Seg Neutrophils % % Lymphocytes % % Monocytes % % Eosinophils % % Basophils % % Neutrophils # (1.6-8.9) K/mcL Lymphocytes # (0.6-4.6) K/mcL Monocytes # (0.0-1.3) K/mcL Eosinophils # (0.0-0.6) K/mcL Basophils # (0.0-0.2) K/mcL Platelet Estimate (Normal) Hypochromasia (Not Present) Anisocytosis (Not Present) Microcytosis (Not Present) PT 14.0 H (9.4-12.1) Seconds INR 1.3 APTT 31.9 (26.0-36.0) Seconds ABG pH (7.32-7.45) pH Units ABG pCO2 (35-45) mmHg ABG pO2 (85-104) mmHg ABG HCO3 (21-27) mEq/L ABG Total CO2 (20-26) mEq/L ABG O2 Saturation (95-98) % ABG Base Excess (-2 to 3) mEq/L Respiration Rate O2 Delivery Device Inspired O2 (1-15=lpm [id number]=%) PEEP cm H2O Sodium (136-145) mEq/L Potassium (3.5-5.1) mEq/L Chloride (98-107) mEq/L Carbon Dioxide (23-29) mEq/L BUN (8-23) mg/dL Creatinine (0.60-1.20) mg/dL Est GFR ( Amer) (> 60) Est GFR (Non-Af Amer) (> 60) BUN/Creatinine Ratio (6-26) Glucose (70-105) mg/dL Calculated Osmolality (280-300) Lactic Acid (0.5-2.2) mmol/L Calcium (8.6-10.3) mg/dL Troponin I < 0.03 (< 0.04) ng/mL B-Natriuretic Peptide 1185 H (Less than 100) pg/mL Person Notif of Crit 07/20/17 07/20/17 07/20/17 Range/Units 12:01 14:34 14:45 WBC (4.3-11.1) K/mcL RBC (3.82-4.97) M/mcL Hgb (11.5-15.4) g/dL Hct (35.3-44.9) % MCV (83.0-100.0) fL MCH (28.0-33.3) pg MCHC (31.6-35.5) g/dL RDW (11.5-14.5) % Plt Count (140-400) K/mcL MPV (9.4-12.4) fL Immature Gran % (0-4) % Seg Neutrophils % % Lymphocytes % % Monocytes % % Eosinophils % % Basophils % % Neutrophils # (1.6-8.9) K/mcL Lymphocytes # (0.6-4.6) K/mcL Monocytes # (0.0-1.3) K/mcL Eosinophils # (0.0-0.6) K/mcL Basophils # (0.0-0.2) K/mcL Platelet Estimate (Normal) Hypochromasia (Not Present) Anisocytosis (Not Present) Microcytosis (Not Present) PT (9.4-12.1) Seconds INR APTT (26.0-36.0) Seconds ABG pH 7.30 L 7.46 H D (7.32-7.45) pH Units ABG pCO2 86 H* 56 H D (35-45) mmHg ABG pO2 148 H 47 L* D (85-104) mmHg ABG HCO3 42 H 40 H (21-27) mEq/L ABG Total CO2 45 H 42 H (20-26) mEq/L ABG O2 Saturation 99 H 84 L (95-98) % ABG Base Excess 11 H 14 H (-2 to 3) mEq/L Respiration Rate 18 O2 Delivery Device BiPAP Inspired O2 100.0 (1-15=lpm [id number]=%) PEEP 9 cm H2O Sodium (136-145) mEq/L Potassium (3.5-5.1) mEq/L Chloride (98-107) mEq/L Carbon Dioxide (23-29) mEq/L BUN (8-23) mg/dL Creatinine (0.60-1.20) mg/dL Est GFR ( Amer) (> 60) Est GFR (Non-Af Amer) (> 60) BUN/Creatinine Ratio (6-26) Glucose (70-105) mg/dL Calculated Osmolality (280-300) Lactic Acid 3.3 H (0.5-2.2) mmol/L Calcium (8.6-10.3) mg/dL Troponin I (< 0.04) ng/mL B-Natriuretic Peptide (Less than 100) pg/mL Person Notif of [place] - Radiology Data Radiology results reviewed: Yes I reviewed the patient's radiology results. Chest X-Ray 07/20/17 11:15 IMPRESSION: 1. New left lung base consolidation which may represent pneumonia versus atelectasis. Possible mild effusion. 2. Postsurgical changes related to prior right pneumonectomy. D/ / Jan Carballo MD / Jan Carballo MD Interpreting Provider: Jan Carballo MD - EKG Data EKG #1 EKG attestation: Yes I reviewed and interpreted this EKG. Rate: tachycardia Rhythm: A.Fib [place]/QRS: normal Voltage: decreased voltage throughout Q waves: v1, v2 When compared to previous EKG there are: no significant changes Interpretation: no acute changes Critical Care Time Critical Care Time: Yes Total Critical Care Time: 120 Attestation: Critical care performed: 120 Time is exclusive of separately billable procedures. Time includes: direct patient care, patient reassessment, coordination of patient care, interpretation of data (laboratory data, radiology data, and respiratory data), review of patient's medical records, medical consultation and documentation of patient care. Procedures included in critical care time: none Procedures excluded from critical care time: yes S.B.A.R. - S.B.A.R. Situation: Demographics Background: Presenting Complaint Assessment: Vital Signs, Course and respsone to treatment, Patient/Family Expectation Recommendation: Barrier(s) to disposition, Recommendation based on pending studies, treatments, or consults Attestation Statement - Attestation Attestation: I examined this patient and my medical decision-making was reviewed with the Resident Physician. I agree with the documented findings, disposition and treatment plan as described except to the extent set forth below. 72 yo F presents with SOB. Pt in resp distress on initial eval and immediately placed on Bipap. Pt is full code by paperwork from [facility]. Pt unable to give a full history secondary to pt condition. Family states symptoms have been worsening for the past couple days. Pt recently admitted to the hospital for aspiration pna which required prolonged antibiotics. Pt hypotensive and tachycardic on our initial evaluation with ECG showing Afib with RVR. Pt has a history of Afib. Pt unable to lay flat in the ED, CVC of femoral vein was performed because pt unable to lay flat. MAP was maintained greater than 65. Pt given HCAP Abx for possible repeat pneumonia. There is also concern for possible PE however, pt unable to go to CT scanner at this time due to instability and inability to lay flat. Pt started on Heparin and will be admitted to the ICU. ICU recommended amiodarone for Afib instead of cardizem.
[2017-07-20] MEDS ORDERED: 0.9 % Sodium Chloride 500 ML IVC ONE ×2 (11:23→11:50)
[2017-07-20] MEDS ORDERED: Piperacillin/Tazobactam 3.375 GM in Water for inj. (sterile) 20 ML IVP ONE (12:03)
[2017-07-20 12:06] LABS: ABG Base Excess 11 mEq/L (-2 to 3); ABG HCO3 42 mEq/L (21-27); ABG Oxygen Saturation 99 % (95-98); ABG PCO2 86 mmHg (35-45); ABG PO2 148 mmHg (85-104); ABG TCO2 45 mEq/L (20-26)
[2017-07-20 12:08] LABS: BUN/Creatinine Ratio 15 (6-26); Basophils % 0.3 %; Blood Urea Nitrogen 10 mg/dL (8-23); Calcium 9.2 mg/dL (8.6-10.3); Carbon Dioxide 40 mEq/L (23-29); Chloride 89 mEq/L (98-107); Eosinophils # 0.2 K/mcL (0.0-0.6); Eosinophils % 1.1 %; Glucose 111 mg/dL (70-105); Hemoglobin 12.2 g/dL (11.5-15.4); Immature Granulocytes % 0.4 % (0-4); Lymphocytes # 2.8 K/mcL (0.6-4.6); Lymphocytes % 20.1 %; Mean Corpuscular Hemoglobin 24.3 pg (28.0-33.3); Mean Corpuscular Volume 83.7 fL (83.0-100.0); Mean Platelet Volume 10.5 fL (9.4-12.4); Monocytes # 1.3 K/mcL (0.0-1.3); Monocytes % 9.4 %; Neutrophils # 9.7 K/mcL (1.6-8.9); Osmolality,Calculated 280 (280-300); Platelet Count 184 K/mcL (140-400); Potassium 3.8 mEq/L (3.5-5.1); Red Blood Count 5.02 M/mcL (3.82-4.97); Red Cell Distribution Width 28.4 % (11.5-14.5); Segmented Neutrophils % 68.7 %; Sodium 135 mEq/L (136-145); eGFR For African Americans > 60 (> 60); eGFR For Non-African Americans > 60 (> 60)
[2017-07-20] MEDS ORDERED: 0.9 % Sodium Chloride 1,000 ML IVC ONE (12:15)
[2017-07-20] MEDS ORDERED: *HR* Heparin 5,000 UNIT/ML VIAL IVP ONE (12:26)
[2017-07-20] MEDS ORDERED: Heparin 25,000 UNIT/500 ML D5W 25,000 UNIT/500 ML BAG IVC SCH (12:30)
[2017-07-20 12:47] LABS: Anisocytosis 2+ (Not Present); Hypochromasia Present (Not Present); Microcytosis Present (Not Present); Platelet Estimate Normal (Normal)
[2017-07-20] MEDS ORDERED: *HR* FentaNYL (PF) 100 MCG/2 ML VIAL IVP ONE (12:49)
[2017-07-20] MEDS ORDERED: *HR* Midazolam HCl 2 MG/2 ML VIAL IVP ONE (12:49)
[2017-07-20] MEDS ORDERED: Calcium Gluconate 3,000 MG in D5% in Water 250 ML IVPB ONE (12:50)
[2017-07-20 12:57] LABS: INR 1.3
[2017-07-20 12:59] LABS: Activated Partial Thrombo Time 31.9 Seconds (26.0-36.0)
[2017-07-20] MEDS ORDERED: Norepinephrine 4 MG in D5% in Water 250 ML IVC SCH ×2 (13:00)
[2017-07-20] MEDS ORDERED: Vancomycin 750 MG in D5% in Water 250 ML IVPB SCH ×3 (13:00→18:00)
[2017-07-20] MEDS ORDERED: Vancomycin 750 MG in D5% in Water 250 ML IVPB ONE (13:05)
[2017-07-20] MEDS ORDERED: Amiodarone Premix 150 MG/100 ML BAG IVPB ONE (14:14)
[2017-07-20] MEDS ORDERED: Amiodarone Premix 360 MG/200 ML BAG IVC ONE (14:24)
[2017-07-20 14:41] LABS: ABG Base Excess 14 mEq/L (-2 to 3); ABG HCO3 40 mEq/L (21-27); ABG Oxygen Saturation 84 % (95-98); ABG PCO2 56 mmHg (35-45); ABG PH 7.46 pH Units (7.32-7.45); ABG PO2 47 mmHg (85-104); ABG TCO2 42 mEq/L (20-26); Blood Gas PEEP 9 cm H2O; Blood Gas Respiration Rate 18
--- NOTE | 2017-07-20 17:05 | Electrocardiograph Report ---
[employer] Test Date: 2017-07-20 Pat Name: Clara Wong Department: [id number] Room: 04 Gender: F [employer]can[employer] Operator: : [id number] Requested By: Shun Kramer Order Number: [id number] Reading MD: Krunal Olivas DO Measurements Intervals [place] Rate: 137 P: OK: 0 QRS: 10 QRSD: 64 T: 0 QT: 292 QTc: 372 Interpretive Statements ATRIAL FIBRILLATION WITH RAPID VENTRICULAR RESPONSE LOW QRS VOLTAGE [QRS DEFLECTION < 0.5/1.0 mV IN LIMB/CHEST LEADS] POSSIBLE ANTERIOR MYOCARDIAL INFARCTION [30 ms Q WAVE IN V3/V4, OR R < 0.2 mV IN V4], PROBABLY OLD INTERPRETATION BASED ON A DEFAULT AGE OF 40 YEARS Electronically Signed On 07-20-2017 17:03:47 EST by Krunal Olivas DO
[2017-07-20] MEDS ORDERED: *HR* LORazepam 2 MG/ML VIAL IVP PRN (17:25)
[2017-07-20] MEDS ORDERED: Acetaminophen 650 MG RECTAL SUPP RC PRN (17:25)
[2017-07-20] MEDS ORDERED: *HR* Morphine 2 MG/ML SYRINGE IVP PRN (17:25)
[2017-07-20] MEDS ORDERED: Ondansetron 4 MG/2 ML VIAL IVP PRN (17:25)
[2017-07-20] MEDS ORDERED: Naloxone 0.4 MG/ML INJ IVP PRN (17:25)
--- NOTE | 2017-07-20 18:17 | Pulmonology History & Physical ---
<Krunal Grey - Last Filed: 07/20/17 18:11> Date of Encounter: 07/20/17 Time of Encounter: 14:00 Assessment and Plan (1) Acute and chronic respiratory failure with hypoxia Current visit: No Status: Acute Patient presents with acute on chronic respiratory failure she uses 2 L nasal cannula oxygen continuously at home which has been continuous since her last visit one month ago. - Respiratory status has declined over the last 2 diabetes, required BiPAP as the patient was hypercapnic, hypoxic and tachypneic. Likely exacerbated due to diastolic heart failure exacerbation and lower lobe pneumonia. Plan: - Continue broad-spectrum antibiotics in an immunocompromised patient with IV Zosyn, Vanco and Levaquin - Cultures obtained results pending - Continue bronchodilators including duo nebs, albuterol - IV Solu-Medrol 40 mg every 8 hours - Requires continuous BiPAP, wean oxygen requirements as tolerated - Repeat ABG in the a.m. (2) Atrial fibrillation with RVR Current visit: No Status: Chronic Patient presents with atrial fibrillation with rapid ventricular rate, suspected secondary to diastolic heart failure exacerbation with a BNP 1000, left lower lobe pneumonia. Plan: - Patient on amiodarone drip, home medication metoprolol - IV diuresis, monitor closely with blood pressure. - Cardiac monitoring (3) Pleural effusion on left Current visit: No Status: Acute Patient has small left-sided pleural effusion likely secondary to cardiogenic with history of diastolic heart failure. We will continue to monitor and provide small amounts of diuresis. (4) COPD with exacerbation Current visit: No Status: Acute Known history of COPD, history of lung cancer and right lobectomy. - Continue duo nebs, bronchodilators and IV steroids - Wean oxygen as tolerated (5) Pneumonia Current visit: No Status: Acute Concerning for left lower lobe infiltration. Consider HCAP with recent hospitalization. Plan: -Continue IV vancomycin, Zosyn and Levaquin - De-escalate antibiotics as tolerated. Qualifiers: Pneumonia type: due to unspecified organism Laterality: unspecified laterality Lung location: unspecified part of lung Qualified Code(s): J18.9 - Pneumonia, unspecified organism (6) History of malignant neoplasm metastatic to lung Current visit: No Status: Acute Documented history. (7) Lactic acidosis Current visit: Yes Status: Acute Lactic acid 3.3 in the setting of acute respiratory failure. - Treat underlying condition - Repeat lactic acid 6 hours (8) DVT prophylaxis Current visit: No Status: Acute Patient currently on heparin drip as there was concern for pulmonary embolism History of Present Illness Chief complaint: shortness of breath HPI: Ms. Wong is a 71 year old female past medical history of lung cancer with right lobectomy COPD with oxygen use at night CAD with 5 stents paroxysmal A. fib and diastolic heart failure. Patient continues to take Tarceva daily. Upon evaluation the patient is wearing BiPAP and transitioning the facial mask. She is alert oriented and interactive and conversive, family is at bedside including POA. Patient states that her shortness of breath started roughly 2 days ago and is progressively gotten worse similar to her previous admission. She is also noticed left upper extremity and left lower extremity edema that has progressively increased for the last 1.5 weeks. He denies any chest pain, chest pressure, productive sputum, pain in her swollen extremities, abdominal pains, nausea vomiting diarrhea or constipation. The shortness of breath has been progressive nothing has improved her symptoms and today she progressively got worse and EMS was contacted who found her hypoxic with oxygen saturations at 60% upon arrival. She received 125 mg of Solu-Medrol by EMS prior to arrival to the hospital and placed on oxygen. With a swollen extremities and shortness of breath there is concern for DVT but the patient was unable to lay flat for CTA of the chest. She was placed on BiPAP after initial blood gas demonstrated pH 7.30, PCO2 86, PO2 148, bicarbonate 42, oxygen saturations 99% with improvement in her mental status and correction of her hypercarbia. She was also found to have atrial fibrillation with rapid ventricular rate with heart rate around 170 and hypotension. She is started on amiodarone drip and a central line was placed. After further evaluation and history of CLL along. Chest x-ray demonstrated new left lung base consolidation which may represent pneumonia versus atelectasis, possible mild effusion. She was transferred to the ICU for continued care and risk of decompensation. Past Med Surg Social Fam HX - Past Medical History Medical history: atrial fibrillation, cancer, COPD, GERD, myocardial infarction , seizures Psychiatric history: anxiety, depression - Past Surgical History Surgical History: angioplasty/stent, cancer surgery, cholecystectomy - Social History Smoking Status: Former smoker Smokeless Tobacco Status: No Alcohol use: none Drug use: none - Family History Mother Hx Family Cardiac Disorders: Yes Father Hx Family Cardiac Disorders: Yes Medications and Allergies Albuterol Neb [Proventil Neb] 2.5 mg IH Q4HR 05/21/15 [History] Calcium Carbonate [Tums] 500 mg PO DAILY 05/21/15 [History] Docusate [Colace] 100 mg PO BID 05/21/15 [History] Oxygen 2 l NS AD 10/28/16 [History] Clopidogrel [Plavix] 75 mg PO DAILY #30 tablet 01/13/17 [Rx] Ranitidine HCl [Zantac] 150 mg PO BID #180 tablet 02/10/17 [Rx] Erlotinib HCl [Tarceva] 100 mg PO DAILY 30 Days tablet 02/26/17 [Rx] Atorvastatin [Lipitor] 40 mg PO HS 03/19/17 [History] Folic Acid 1 mg PO DAILY #90 tablet 05/06/17 [Rx] Pantoprazole Sodium [Protonix] 40 mg PO DAILY 05/11/17 [History] Ferrous Sulfate 325 mg PO BID #60 tablet 05/15/17 [Rx] Sucralfate [Carafate] 1 gm PO BID 06/22/17 [History] Diltiazem [Cardizem] 30 mg PO Q6HR tablet 06/23/17 [Rx] Furosemide [Lasix] 20 mg PO DAILY tablet 06/23/17 [Rx] Gabapentin [Neurontin] 600 tab PO BID #20 capsule 06/23/17 [Rx] GuaiFENesin/Dextromethorphan [Mucinex Dm] 1 each PO BID tab.er.12h 06/23/17 [Rx ] HYDROcodone/Acet 5/325 mg [Gillett 5-325 mg] 1 tab PO TID PRN #15 tab 06/23/17 [Rx ] Metoprolol [Lopressor] 12.5 mg PO BID tablet 06/23/17 [Rx] Aspirin 81 mg PO DAILY 07/20/17 [History] Nystatin POWDER [Nystop] 1 appl TP AD 07/20/17 [History] 3 Allergy/AdvReac Type Severity Reaction Status Date / Time No Known Allergies Allergy Verified 03/19/17 09:01 All Systems: A 10-system review of systems was performed and is negative for pertinent findings except as documented above in the HPI. - Constitutional Constitutional: as per HPI, fatigue, weakness, no chills, no daytime sleepiness , no fever(s), no headache(s) - EENT Eyes: no loss of peripheral vision Ears: no decreased hearing Nose, mouth and throat: no sore throat - Cardiovascular Cardiovascular: dyspnea, dyspnea on exertion, edema, irregular heart rhythm, leg edema, no chest pain, no diaphoresis, no palpitations - Respiratory Respiratory: dyspnea, dyspnea on exertion - Gastrointestinal Gastrointestinal: no abdominal pain, no cramping, no diarrhea - Genitourinary Genitourinary: no difficulty urinating - Integumentary Integumentary: other (Left upper extremity and left lower extremity edema 1) - Neurological Neurological: as per HPI, no confusion Physical Examination Vital Signs: Vital Signs, Last 4 Hours Pulse Resp BP Pulse Ox 07/20/17 17:29 137 10 102/74 95 07/20/17 15:59 153 13 95/79 100 General appearance: other (Tachypnea, labored breathing) Eyes: nonicteric ENT: oropharynx moist Neck: supple Effort: mildly labored Inspection: normal Auscultation: bilateral: diminished breath sounds (Breath sounds greater on the left compared to the right), wheezes Cardiovascular: irregular rhythm Gastrointestinal: normoactive bowel sounds, soft, non-tender Integumentary: normal Extremities: no cyanosis, edema (2+ edema in her left upper and left lower extremity) normal mental status mood appropriate, affect normal Results - Laboratory Findings CBC and BMP: 07/20/17 11:34 07/20/17 11:34 ABG ABG pH 7.46 pH Units (7.32-7.45) H D 07/20/17 14:34 ABG pCO2 56 mmHg (35-45) H D 07/20/17 14:34 ABG pO2 47 mmHg (85-104) L* D 07/20/17 14:34 ABG O2 Saturation 84 % (95-98) L 07/20/17 14:34 PT/INR, D-dimer PT 14.0 Seconds (9.4-12.1) H 07/20/17 11:34 Abnormal lab findings: Abnormal lab results WBC 14.1 K/mcL (4.3-11.1) H 07/20/17 11:34 RBC 5.02 M/mcL (3.82-4.97) H 07/20/17 11:34 MCH 24.3 pg (28.0-33.3) L 07/20/17 11:34 MCHC 29.0 g/dL (31.6-35.5) L 07/20/17 11:34 RDW 28.4 % (11.5-14.5) H 07/20/17 11:34 Neutrophils # 9.7 K/mcL (1.6-8.9) H 07/20/17 11:34 Hypochromasia Present (Not Present) A 07/20/17 11:34 Anisocytosis 2+ (Not Present) A 07/20/17 11:34 Microcytosis Present (Not Present) A 07/20/17 11:34 PT 14.0 Seconds (9.4-12.1) H 07/20/17 11:34 ABG pH 7.46 pH Units (7.32-7.45) H D 07/20/17 14:34 ABG pCO2 56 mmHg (35-45) H D 07/20/17 14:34 ABG pO2 47 mmHg (85-104) L* D 07/20/17 14:34 ABG HCO3 40 mEq/L (21-27) H 07/20/17 14:34 ABG Total CO2 42 mEq/L (20-26) H 07/20/17 14:34 ABG O2 Saturation 84 % (95-98) L 07/20/17 14:34 ABG Base Excess 14 mEq/L (-2 to 3) H 07/20/17 14:34 Sodium 135 mEq/L (136-145) L 07/20/17 11:34 Chloride 89 mEq/L (98-107) L 07/20/17 11:34 Carbon Dioxide 40 mEq/L (23-29) H* 07/20/17 11:34 Glucose 111 mg/dL (70-105) H 07/20/17 11:34 Lactic Acid 3.3 mmol/L (0.5-2.2) H 07/20/17 14:45 B-Natriuretic Peptide 1185 pg/mL (Less than 100) H 07/20/17 11:34 <Azam Lofton S - Last Filed: 07/20/17 22:08> Date of Encounter: 07/20/17 History of Present Illness HPI: Ms. Wong is a 71 year old female All Systems: A 10-system review of systems was performed and is negative for pertinent findings except as documented above in the HPI. Physical Examination Vital Signs: Vital Signs, Last 4 Hours Pulse Resp BP Pulse Ox 07/20/17 18:21 148 14 101/68 94 07/20/17 17:29 137 10 102/74 95 07/20/17 16:26 133 102/88 07/20/17 15:59 153 13 95/79 100 Results - Laboratory Findings CBC and BMP: 07/20/17 11:34 07/20/17 17:56 ABG ABG pH 7.46 pH Units (7.32-7.45) H D 07/20/17 14:34 ABG pCO2 56 mmHg (35-45) H D 07/20/17 14:34 ABG pO2 47 mmHg (85-104) L* D 07/20/17 14:34 ABG O2 Saturation 84 % (95-98) L 07/20/17 14:34 PT/INR, D-dimer PT 14.0 Seconds (9.4-12.1) H 07/20/17 11:34 Abnormal lab findings: Abnormal lab results WBC 14.1 K/mcL (4.3-11.1) H 07/20/17 11:34 RBC 5.02 M/mcL (3.82-4.97) H 07/20/17 11:34 MCH 24.3 pg (28.0-33.3) L 07/20/17 11:34 MCHC 29.0 g/dL (31.6-35.5) L 07/20/17 11:34 RDW 28.4 % (11.5-14.5) H 07/20/17 11:34 Neutrophils # 9.7 K/mcL (1.6-8.9) H 07/20/17 11:34 Hypochromasia Present (Not Present) A 07/20/17 11:34 Anisocytosis 2+ (Not Present) A 07/20/17 11:34 Microcytosis Present (Not Present) A 07/20/17 11:34 PT 14.0 Seconds (9.4-12.1) H 07/20/17 11:34 ABG pH 7.46 pH Units (7.32-7.45) H D 07/20/17 14:34 ABG pCO2 56 mmHg (35-45) H D 07/20/17 14:34 ABG pO2 47 mmHg (85-104) L* D 07/20/17 14:34 ABG HCO3 40 mEq/L (21-27) H 07/20/17 14:34 ABG Total CO2 42 mEq/L (20-26) H 07/20/17 14:34 ABG O2 Saturation 84 % (95-98) L 07/20/17 14:34 ABG Base Excess 14 mEq/L (-2 to 3) H 07/20/17 14:34 Sodium 134 mEq/L (136-145) L 07/20/17 17:56 Chloride 90 mEq/L (98-107) L 07/20/17 17:56 Carbon Dioxide 37 mEq/L (23-29) H 07/20/17 17:56 Glucose 176 mg/dL (70-105) H 07/20/17 17:56 Lactic Acid 3.3 mmol/L (0.5-2.2) H 07/20/17 14:45 B-Natriuretic Peptide 1185 pg/mL (Less than 100) H 07/20/17 11:34 Serum Total Protein 5.7 g/dL (6.4-8.9) L 07/20/17 17:56 Albumin 2.9 g/dL (3.5-5.7) L 07/20/17 17:56 Albumin/Globulin Ratio 1.0 (1.1-2.2) L 07/20/17 17:56 - Attending Attestation I saw the patient with the resident agree with History and Physical exam findings. 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 With history of malignancy possible PE patient is on heparin drip since patient has no known contraindication for anticoagulation will continue for now will get LE dopplers and LUE doppler to rule out DVT Cardiac : Blood pressure borderline with A fib with RVR on amiodarone drip will get ECHO and trend troponin's Nutrition/GI: Patnt is NPO , PPI prophylaxis Renal : labs reviewed Heme onc : Labs reviewed ID : Increased lactate likely due to pneumonia vs poor perfusion due to volume depletion and reduced cardiac output due to a fib with RVR to continue broad spectrum antibiotics Musculo skeletal / skin issues : No acute issues Disposition : Critically ill Code status: Full code Family/POA: not met the family yet Spent 40 minutes of Critical time in medical decision making in maintaining vital organ function
[2017-07-20] MEDS ORDERED: Ipratropium/Albuterol Neb 3 ML IH PRN (18:30)
[2017-07-20 18:51] LABS: Alanine Aminotransferase 10 Units/L (7-52); Albumin 2.9 g/dL (3.5-5.7); Alkaline Phosphatase 82 Units/L (34-104); Aspartate Amino Transferase 24 Units/L (13-39); BUN/Creatinine Ratio 15 (6-26); Blood Urea Nitrogen 11 mg/dL (8-23); Calcium 9.4 mg/dL (8.6-10.3); Carbon Dioxide 37 mEq/L (23-29); Chloride 90 mEq/L (98-107); Globulin 2.8 g/dL (2.4-3.5); Glucose 176 mg/dL (70-105); Osmolality,Calculated 282 (280-300); Potassium 3.7 mEq/L (3.5-5.1); Sodium 134 mEq/L (136-145); Total Protein 5.7 g/dL (6.4-8.9); eGFR For African Americans > 60 (> 60); eGFR For Non-African Americans > 60 (> 60)
[2017-07-20] MEDS: Famotidine 20 MG/2 ML VIAL IVP SCH (19:04)
[2017-07-20] MEDS: Piperacillin/Tazobactam 3.375 GM/200 ML BAG IVPB SCH (19:45)
--- NOTE | 2017-07-20 20:01 | Electrocardiograph Report ---
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
[2017-07-20] MEDS: Albuterol 2.5 MG/3 ML NEBULIZER IH SCH ×2 (20:05→23:39)
[2017-07-20] MEDS: Amiodarone Premix 360 MG/200 ML BAG IVC SCH (20:10)
[2017-07-20 22:35] LABS: Hematocrit 34.1 % (35.3-44.9)
[2017-07-20] MEDS: MethylPREDNISolone 40 MG/ML VIAL IVP SCH (23:48)
[2017-07-21] MEDS: Phenylephrine 10 MG in D5% in Water 250 ML IVC SCH ×3 (01:19→15:05)
[2017-07-21] MEDS: Vancomycin 500 MG in 0.9 % Sodium Chloride Mini Bag 100 ML IVPB SCH ×2 (02:17→14:30)
[2017-07-21] MEDS: Piperacillin/Tazobactam 3.375 GM/200 ML BAG IVPB SCH ×3 (02:17→17:23)
[2017-07-21 03:30] LABS: Basophils % 0.1 %; Hematocrit 33.1 % (35.3-44.9); Hemoglobin 9.9 g/dL (11.5-15.4); Immature Granulocytes % 0.5 % (0-4); Lymphocytes % 7.5 %; Mean Corpuscular HGB Conc 29.9 g/dL (31.6-35.5); Mean Corpuscular Hemoglobin 24.3 pg (28.0-33.3); Mean Corpuscular Volume 81.1 fL (83.0-100.0); Mean Platelet Volume 10.5 fL (9.4-12.4); Monocytes # 0.2 K/mcL (0.0-1.3); Monocytes % 2.8 %; Platelet Count 172 K/mcL (140-400); Red Blood Count 4.08 M/mcL (3.82-4.97); Red Cell Distribution Width 27.9 % (11.5-14.5); Segmented Neutrophils % 89.1 %
[2017-07-21 03:39] LABS: Lymphocytes # 0.7 K/mcL (0.6-4.6); Neutrophils # 7.7 K/mcL (1.6-8.9)
[2017-07-21 03:43] LABS: BUN/Creatinine Ratio 15 (6-26); Blood Urea Nitrogen 11 mg/dL (8-23); Calcium 8.6 mg/dL (8.6-10.3); Carbon Dioxide 38 mEq/L (23-29); Chloride 92 mEq/L (98-107); Glucose 175 mg/dL (70-105); Magnesium 1.6 mg/dL (1.6-2.6); Osmolality,Calculated 282 (280-300); Phosphorous 3.1 mg/dL (2.7-4.5); Potassium 3.2 mEq/L (3.5-5.1); Sodium 134 mEq/L (136-145); eGFR For African Americans > 60 (> 60); eGFR For Non-African Americans > 60 (> 60)
[2017-07-21] MEDS: Albuterol 2.5 MG/3 ML NEBULIZER IH SCH ×2 (03:45→08:34)
[2017-07-21 04:57] LABS: Anisocytosis 3+ (Not Present)
[2017-07-21 04:59] LABS: Platelet Estimate Normal (Normal); Poikilocytosis 1+ (Not Present); Polychromasia 1+ (Not Present)
[2017-07-21] MEDS: Famotidine 20 MG/2 ML VIAL IVP SCH ×2 (06:28→17:22)
[2017-07-21] MEDS: MethylPREDNISolone 40 MG/ML VIAL IVP SCH ×3 (07:45→23:36)
[2017-07-21] MEDS: Amiodarone Premix 360 MG/200 ML BAG IVC SCH ×2 (07:45→18:36)
[2017-07-21] MEDS ORDERED: *HR* Enoxaparin 40 MG/0.4 ML SYRINGE SQ ONE (08:07)
--- NOTE | 2017-07-21 08:55 | Pulmonology Progress Note ---
<Twan Leiva - Last Filed: 07/21/17 14:10> Date of Encounter: 07/21/17 Time of Encounter: 08:54 Assessment and Plan (1) Acute and chronic respiratory failure with hypoxia Current Visit: No Status: Acute Pt on 2L NC at home Acute on chronic resp failure likely 2/2 dCHF, PNA, pt required BiPAP cxs pending Plan: patient off BiPAP continue abx continue steroids continue duonebs/albuterol (2) Atrial fibrillation with RVR Current Visit: Yes Status: Chronic Likely 2/2 dCHF BNP:1185 HR and BP currently controlled Plan: Continue on amiodarone drip convert to PO control as able (3) Pleural effusion on left Current Visit: No Status: Acute Patient has a small left sided pleural effusion based on CXR likely 2/2 to dCHF(chronic) Plan: continue to monitor diuresis as able. (4) COPD with exacerbation Current Visit: No Status: Acute Pt with Hx of COPD Patient started on duonebs, and IV steroids Plan: Continue duonebs continue steroids continue to ween oxygen as able. (5) Pneumonia Current Visit: Yes Status: Acute New LLL infiltrate on CXR Patient with recent hospitalization so HCAP must be considered Patient started on Vanc, zosyn, and levaquin Plan: continue abx with plans to de-escalate as able Qualifiers: Pneumonia type: due to unspecified organism Laterality: left Lung location: lower lobe of lung Qualified Code(s): J18.1 - Lobar pneumonia, unspecified organism (6) History of malignant neoplasm metastatic to lung Current Visit: No Status: Acute Hx of CA with R pneumonectomy (7) Lactic acidosis Current Visit: Yes Status: Acute resolved LA 3.3 upon presentation to ICU 2/2 to respiratory failure repeat 1.6 Plan: Continue to treat underlying conditions (8) Hyperglycemia Current Visit: Yes Status: Acute Patient with elevated blood sugars Plan: Started on cardiac diet Started on SSI low dose with Accuchecks (9) DVT prophylaxis Current Visit: No Status: Acute Patient was on heparin drip for concern for PE Venous doplers negative Plan: Heparin drip stopped Started patient on lovenox Subjective Principal diagnosis: Acute Respiratory Failure with hypoxia Interval history: Patient able to ween off of BiPap to NC. Satting well. Objective PUL Vital signs: Last Vital Signs Temp 97.8 F 07/21/17 08:26 Pulse 68 07/21/17 08:16 Resp 18 07/21/17 08:37 BP 116/79 07/21/17 08:16 Pulse Ox 100 07/21/17 08:37 General appearance: no acute distress Eyes: nonicteric ENT: oropharynx moist Neck: supple Effort: normal Auscultation: left: clear, right: diminished breath sounds Cardiovascular: irregular rhythm Gastrointestinal: normoactive bowel sounds, soft, non-tender, non-distended Integumentary: normal Extremities: no cyanosis, no edema Musculoskeletal: no deformities normal mental status, non-focal exam mood appropriate, affect normal Results - Laboratory Findings CBC and BMP: 07/21/17 03:17 07/21/17 03:17 ABG ABG pH 7.46 pH Units (7.32-7.45) H D 07/20/17 14:34 ABG pCO2 56 mmHg (35-45) H D 07/20/17 14:34 ABG pO2 47 mmHg (85-104) L* D 07/20/17 14:34 ABG O2 Saturation 84 % (95-98) L 07/20/17 14:34 PT/INR, D-dimer PT 14.0 Seconds (9.4-12.1) H 07/20/17 11:34 Abnormal lab findings: Abnormal lab results Hgb 9.9 g/dL (11.5-15.4) L 07/21/17 03:17 Hct 33.1 % (35.3-44.9) L 07/21/17 03:17 MCV 81.1 fL (83.0-100.0) L 07/21/17 03:17 MCH 24.3 pg (28.0-33.3) L 07/21/17 03:17 MCHC 29.9 g/dL (31.6-35.5) L 07/21/17 03:17 RDW 27.9 % (11.5-14.5) H 07/21/17 03:17 Polychromasia 1+ (Not Present) A 07/21/17 03:17 Hypochromasia Present (Not Present) A 07/20/17 11:34 Poikilocytosis 1+ (Not Present) A 07/21/17 03:17 Anisocytosis 3+ (Not Present) A 07/21/17 03:17 Microcytosis Present (Not Present) A 07/20/17 11:34 PT 14.0 Seconds (9.4-12.1) H 07/20/17 11:34 APTT 78.3 Seconds (26.0-36.0) H 07/21/17 03:00 ABG pH 7.46 pH Units (7.32-7.45) H D 07/20/17 14:34 ABG pCO2 56 mmHg (35-45) H D 07/20/17 14:34 ABG pO2 47 mmHg (85-104) L* D 07/20/17 14:34 ABG HCO3 40 mEq/L (21-27) H 07/20/17 14:34 ABG Total CO2 42 mEq/L (20-26) H 07/20/17 14:34 ABG O2 Saturation 84 % (95-98) L 07/20/17 14:34 ABG Base Excess 14 mEq/L (-2 to 3) H 07/20/17 14:34 Sodium 134 mEq/L (136-145) L 07/21/17 03:17 Potassium 3.2 mEq/L (3.5-5.1) L 07/21/17 03:17 Chloride 92 mEq/L (98-107) L 07/21/17 03:17 Carbon Dioxide 38 mEq/L (23-29) H 07/21/17 03:17 Glucose 175 mg/dL (70-105) H 07/21/17 03:17 POC Glucose 170 (58-89) H 07/20/17 21:27 B-Natriuretic Peptide 1185 pg/mL (Less than 100) H 07/20/17 11:34 Serum Total Protein 5.7 g/dL (6.4-8.9) L 07/20/17 17:56 Albumin 2.9 g/dL (3.5-5.7) L 07/20/17 17:56 Albumin/Globulin Ratio 1.0 (1.1-2.2) L 07/20/17 17:56 - Clinical Findings Intake & Output: Intake & Output 07/20/17 07/21/17 07/21/17 23:59 07:59 15:59 Intake Total 1075 / 1075 751 / 751 Output Total 350 / 350 125 / 125 150 / 150 Balance 725 / 725 626 / 626 -150 / -150 Weight 60.8 kg Consult Discharge Plan - Plan Referrals: Senait Wong, SILVER CHASER [Primary Care Provider] - <Azam Lofton - Last Filed: 07/21/17 22:22> Date of Encounter: 07/21/17 Objective PUL Vital signs: Last Vital Signs Temp 98.0 F 07/21/17 20:36 Pulse 134 07/21/17 21:32 Resp 18 07/21/17 21:32 BP 100/71 07/21/17 21:32 Pulse Ox 99 07/21/17 21:32 Results - Laboratory Findings CBC and BMP: 07/21/17 03:17 07/21/17 20:06 ABG ABG pH 7.46 pH Units (7.32-7.45) H D 07/20/17 14:34 ABG pCO2 56 mmHg (35-45) H D 07/20/17 14:34 ABG pO2 47 mmHg (85-104) L* D 07/20/17 14:34 ABG O2 Saturation 84 % (95-98) L 07/20/17 14:34 PT/INR, D-dimer PT 14.0 Seconds (9.4-12.1) H 07/20/17 11:34 Abnormal lab findings: Abnormal lab results Hgb 9.9 g/dL (11.5-15.4) L 07/21/17 03:17 Hct 33.1 % (35.3-44.9) L 07/21/17 03:17 MCV 81.1 fL (83.0-100.0) L 07/21/17 03:17 MCH 24.3 pg (28.0-33.3) L 07/21/17 03:17 MCHC 29.9 g/dL (31.6-35.5) L 07/21/17 03:17 RDW 27.9 % (11.5-14.5) H 07/21/17 03:17 Polychromasia 1+ (Not Present) A 07/21/17 03:17 Hypochromasia Present (Not Present) A 07/20/17 11:34 Poikilocytosis 1+ (Not Present) A 07/21/17 03:17 Anisocytosis 3+ (Not Present) A 07/21/17 03:17 Microcytosis Present (Not Present) A 07/20/17 11:34 PT 14.0 Seconds (9.4-12.1) H 07/20/17 11:34 APTT 78.3 Seconds (26.0-36.0) H 07/21/17 03:00 ABG pH 7.46 pH Units (7.32-7.45) H D 07/20/17 14:34 ABG pCO2 56 mmHg (35-45) H D 07/20/17 14:34 ABG pO2 47 mmHg (85-104) L* D 07/20/17 14:34 ABG HCO3 40 mEq/L (21-27) H 07/20/17 14:34 ABG Total CO2 42 mEq/L (20-26) H 07/20/17 14:34 ABG O2 Saturation 84 % (95-98) L 07/20/17 14:34 ABG Base Excess 14 mEq/L (-2 to 3) H 07/20/17 14:34 Sodium 134 mEq/L (136-145) L 07/21/17 03:17 Chloride 92 mEq/L (98-107) L 07/21/17 03:17 Carbon Dioxide 38 mEq/L (23-29) H 07/21/17 03:17 Glucose 175 mg/dL (70-105) H 07/21/17 03:17 POC Glucose 133 (58-89) H 07/21/17 20:06 B-Natriuretic Peptide 1185 pg/mL (Less than 100) H 07/20/17 11:34 Serum Total Protein 5.7 g/dL (6.4-8.9) L 07/20/17 17:56 Albumin 2.9 g/dL (3.5-5.7) L 07/20/17 17:56 Albumin/Globulin Ratio 1.0 (1.1-2.2) L 07/20/17 17:56 - Clinical Findings Intake & Output: Intake & Output 07/21/17 07/21/17 07/21/17 07:59 15:59 23:59 Intake Total 751 / 751 551 / 551 483 / 483 Output Total 125 / 125 375 / 375 350 / 350 Balance 626 / 626 176 / 176 133 / 133 Weight 60.8 kg - Attending Attestation Will add to the diagnosis to above resident documentation septic shock I saw the patient with the resident agree with History and Physical exam findings. 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 With history of malignancy possible PE , LE dopplers and LUE doppler to rule out DVT but the prelim came negative low suspicion for PE in the setting of strong alternative diagnosis will stop IV heparin. Cardiac : A fib with RVR on amiodarone drip will transition to Amiodarone PO when stable . when she is stable will anticoagulate to reduce the stroke risk . Needs some vasopressor support behaving like septic shock Nutrition/GI: Patient is NPO , PPI prophylaxis when stable will advance the diet Renal : labs reviewed Heme onc : Labs reviewed ID : [email or web address] , lactate normal septic shock will cover with broad spectrum antibiotics. Musculo skeletal / skin issues : No acute issues Disposition : Critically ill Code status: Full code Family/POA: met the family. Spent 40 minutes of Critical care time in medical decision making in maintaining vital organ function .
[2017-07-21] MEDS ORDERED: Levofloxacin 500 MG/100 ML 500 MG/100 ML BAG IVPB ONE (09:00)
[2017-07-21] MEDS ORDERED: Levofloxacin 250 MG/50 ML 250 MG/50 ML BAG IVPB ONE (10:00)
[2017-07-21] MEDS: Artificial Tears SOLN 15 ML BOTTLE BOTH EYES SCH ×4 (10:40→20:42)
[2017-07-21] MEDS ORDERED: Albuterol 2.5 MG/3 ML NEBULIZER IH PRN (11:00)
[2017-07-21] MEDS: Ipratropium/Albuterol Neb 3 ML IH SCH ×3 (11:51→21:26)
[2017-07-21] MEDS ORDERED: D5% in Water 1,000 ML IVC PRN (13:35)
[2017-07-21] MEDS ORDERED: Dextrose Gel 15 GM/37.5 ML TUBE PO PRN ×2 (13:35)
[2017-07-21] MEDS ORDERED: *HR* Dextrose 50 % in Water (Syg) 50 ML SYRINGE IVP PRN (13:35)
[2017-07-21] MEDS: TARCEVA PO SCH (14:23)
[2017-07-21] MEDS: Insulin LISPRO 300 UNITS/3 ML VIAL SQ SCH ×2 (16:24→20:37)
[2017-07-22] MEDS: Piperacillin/Tazobactam 3.375 GM/200 ML BAG IVPB SCH ×3 (01:05→17:15)
[2017-07-22 02:05] LABS: Basophils % 0.1 %; Hematocrit 28.8 % (35.3-44.9); Hemoglobin 8.9 g/dL (11.5-15.4); Immature Granulocytes % 0.5 % (0-4); Lymphocytes # 0.5 K/mcL (0.6-4.6); Lymphocytes % 5.8 %; Mean Corpuscular HGB Conc 30.9 g/dL (31.6-35.5); Mean Corpuscular Hemoglobin 24.6 pg (28.0-33.3); Mean Corpuscular Volume 79.6 fL (83.0-100.0); Mean Platelet Volume 9.9 fL (9.4-12.4); Monocytes # 0.2 K/mcL (0.0-1.3); Monocytes % 2.6 %; Neutrophils # 7.8 K/mcL (1.6-8.9); Platelet Count 154 K/mcL (140-400); Red Blood Count 3.62 M/mcL (3.82-4.97)
[2017-07-22 02:38] LABS: Anisocytosis 3+ (Not Present); Hypochromasia Present (Not Present); Microcytosis Present (Not Present); Platelet Estimate Normal (Normal); Poikilocytosis 1+ (Not Present)
[2017-07-22 02:51] LABS: BUN/Creatinine Ratio 19 (6-26); Blood Urea Nitrogen 12 mg/dL (8-23); Calcium 8.6 mg/dL (8.6-10.3); Carbon Dioxide 36 mEq/L (23-29); Chloride 94 mEq/L (98-107); Glucose 136 mg/dL (70-105); Magnesium 2.3 mg/dL (1.6-2.6); Osmolality,Calculated 282 (280-300); Potassium 3.8 mEq/L (3.5-5.1); Sodium 135 mEq/L (136-145); eGFR For African Americans > 60 (> 60); eGFR For Non-African Americans > 60 (> 60)
[2017-07-22] MEDS ORDERED: Vancomycin 750 MG in D5% in Water 250 ML IVPB SCH (03:00)
[2017-07-22] MEDS: Ipratropium/Albuterol Neb 3 ML IH SCH ×4 (03:35→21:26)
[2017-07-22] MEDS: Amiodarone Premix 360 MG/200 ML BAG IVC SCH ×2 (03:57→22:21)
[2017-07-22] MEDS: *HR* Enoxaparin 40 MG/0.4 ML SYRINGE SQ SCH (06:16)
[2017-07-22] MEDS: Famotidine 20 MG/2 ML VIAL IVP SCH ×2 (06:16→17:15)
[2017-07-22] MEDS: Insulin LISPRO 300 UNITS/3 ML VIAL SQ SCH ×4 (08:00→19:43)
[2017-07-22] MEDS: MethylPREDNISolone 40 MG/ML VIAL IVP SCH ×2 (08:36→15:55)
[2017-07-22] MEDS: Levofloxacin 750 MG/150 ML 750 MG/150 ML BAG IVPB SCH (08:36)
[2017-07-22] MEDS: Artificial Tears SOLN 15 ML BOTTLE BOTH EYES SCH ×4 (08:37→21:39)
--- NOTE | 2017-07-22 09:27 | Pulmonology Progress Note ---
Addendum entered and electronically signed by Twan Leiva DO 07/22/17 13:26 : Vancomycin discontinued. Original Note: <Twan Leiva - Last Filed: 07/22/17 09:25> Date of Encounter: 07/22/17 Time of Encounter: 09:25 Assessment and Plan (1) Acute and chronic respiratory failure with hypoxia Current Visit: No Status: Acute Pt on 2L NC at home Acute on chronic resp failure likely 2/2 dCHF, PNA, pt required BiPAP cxs pending Plan: patient off BiPAP continue abx continue steroids continue duonebs/albuterol (2) Atrial fibrillation with RVR Current Visit: Yes Status: Chronic Likely 2/2 dCHF BNP:1185 pt placed on amiodarone drip HR and BP currently controlled Plan: transitioned to PO lopressor 12.5 BID continue to monitor (3) Pleural effusion on left Current Visit: No Status: Acute Patient has a small left sided pleural effusion based on CXR likely 2/2 to dCHF(chronic) Plan: continue to monitor giving 40mg IV lasix today (4) COPD with exacerbation Current Visit: No Status: Acute Pt with Hx of COPD Patient started on duonebs, and IV steroids Plan: Continue duonebs continue steroids continue to ween oxygen as able. (5) Pneumonia Current Visit: Yes Status: Acute New LLL infiltrate on CXR Patient with recent hospitalization so HCAP must be considered Patient started on Vanc, zosyn, and levaquin Plan: continue abx with plans to de-escalate as able Qualifiers: Pneumonia type: due to unspecified organism Laterality: left Lung location: lower lobe of lung Qualified Code(s): J18.1 - Lobar pneumonia, unspecified organism (6) History of malignant neoplasm metastatic to lung Current Visit: No Status: Acute Hx of CA with R pneumonectomy (7) Lactic acidosis Current Visit: Yes Status: Acute resolved LA 3.3 upon presentation to ICU 2/2 to respiratory failure repeat 1.6 Plan: Continue to treat underlying conditions (8) Hyperglycemia Current Visit: Yes Status: Acute Patient with elevated blood sugars, not a known diabetic Plan: Started on cardiac diet Started on SSI low dose with Accuchecks (9) DVT prophylaxis Current Visit: No Status: Acute Patient was on heparin drip for concern for PE Venous doplers negative Heparin drip stopped Started patient on lovenox Plan: continue lovenox Subjective Principal diagnosis: Acute Respiratory Failure with hypoxia Interval history: Patient able to ween off of BiPap to NC. Satting well. Patient reports feeling well and having no complaints at this time. Objective PUL Vital signs: Last Vital Signs Temp 97.4 F L 07/22/17 07:34 Pulse 88 07/22/17 09:00 Resp 17 07/22/17 09:24 BP 99/61 07/22/17 09:00 Pulse Ox 100 07/22/17 09:24 General appearance: no acute distress Eyes: nonicteric ENT: oropharynx moist Neck: supple Effort: normal Auscultation: left: clear, right: diminished breath sounds Cardiovascular: regular rate and rhythm Gastrointestinal: normoactive bowel sounds, soft, non-tender, non-distended Integumentary: normal Extremities: no cyanosis, edema Musculoskeletal: no deformities normal mental status, non-focal exam mood appropriate, affect normal Results - Laboratory Findings CBC and BMP: 07/22/17 01:56 07/22/17 01:56 ABG ABG pH 7.46 pH Units (7.32-7.45) H D 07/20/17 14:34 ABG pCO2 56 mmHg (35-45) H D 07/20/17 14:34 ABG pO2 47 mmHg (85-104) L* D 07/20/17 14:34 ABG O2 Saturation 84 % (95-98) L 07/20/17 14:34 PT/INR, D-dimer PT 14.0 Seconds (9.4-12.1) H 07/20/17 11:34 Abnormal lab findings: Abnormal lab results RBC 3.62 M/mcL (3.82-4.97) L 07/22/17 01:56 Hgb 8.9 g/dL (11.5-15.4) L 07/22/17 01:56 Hct 28.8 % (35.3-44.9) L 07/22/17 01:56 MCV 79.6 fL (83.0-100.0) L 07/22/17 01:56 MCH 24.6 pg (28.0-33.3) L 07/22/17 01:56 MCHC 30.9 g/dL (31.6-35.5) L 07/22/17 01:56 RDW 28.0 % (11.5-14.5) H 07/22/17 01:56 Lymphocytes # 0.5 K/mcL (0.6-4.6) L 07/22/17 01:56 Polychromasia 1+ (Not Present) A 07/21/17 03:17 Hypochromasia Present (Not Present) A 07/22/17 01:56 Poikilocytosis 1+ (Not Present) A 07/22/17 01:56 Anisocytosis 3+ (Not Present) A 07/22/17 01:56 Microcytosis Present (Not Present) A 07/22/17 01:56 PT 14.0 Seconds (9.4-12.1) H 07/20/17 11:34 ABG pH 7.46 pH Units (7.32-7.45) H D 07/20/17 14:34 ABG pCO2 56 mmHg (35-45) H D 07/20/17 14:34 ABG pO2 47 mmHg (85-104) L* D 07/20/17 14:34 ABG HCO3 40 mEq/L (21-27) H 07/20/17 14:34 ABG Total CO2 42 mEq/L (20-26) H 07/20/17 14:34 ABG O2 Saturation 84 % (95-98) L 07/20/17 14:34 ABG Base Excess 14 mEq/L (-2 to 3) H 07/20/17 14:34 Sodium 135 mEq/L (136-145) L 07/22/17 01:56 Chloride 94 mEq/L (98-107) L 07/22/17 01:56 Carbon Dioxide 36 mEq/L (23-29) H 07/22/17 01:56 Glucose 136 mg/dL (70-105) H 07/22/17 01:56 POC Glucose 133 (58-89) H 07/21/17 20:06 B-Natriuretic Peptide 1185 pg/mL (Less than 100) H 07/20/17 11:34 Serum Total Protein 5.7 g/dL (6.4-8.9) L 07/20/17 17:56 Albumin 2.9 g/dL (3.5-5.7) L 07/20/17 17:56 Albumin/Globulin Ratio 1.0 (1.1-2.2) L 07/20/17 17:56 Vancomycin Trough 9.6 mcg/mL (10-20) L 07/22/17 01:56 - Clinical Findings Intake & Output: Intake & Output 07/21/17 07/22/17 07/22/17 23:59 07:59 15:59 Intake Total 783 / 783 830 / 830 Output Total 575 / 575 900 / 900 Balance 208 / 208 -70 / -70 Weight 61.1 kg - VTE Documentation of Mechanical Device: Graduated compression elastic hosiery Consult Discharge Plan - Plan Referrals: Senait Wong, FRONT DESK REPRESENTATIVE [Primary Care Provider] - <Azam Lofton - Last Filed: 07/22/17 22:21> Date of Encounter: 07/22/17 Objective PUL Vital signs: Last Vital Signs Temp 97.4 F L 07/22/17 19:51 Pulse 109 07/22/17 21:00 Resp 18 07/22/17 21:27 BP 90/73 07/22/17 21:27 Pulse Ox 97 07/22/17 21:27 Results - Laboratory Findings CBC and BMP: 07/22/17 01:56 07/22/17 16:00 ABG ABG pH 7.46 pH Units (7.32-7.45) H D 07/20/17 14:34 ABG pCO2 56 mmHg (35-45) H D 07/20/17 14:34 ABG pO2 47 mmHg (85-104) L* D 07/20/17 14:34 ABG O2 Saturation 84 % (95-98) L 07/20/17 14:34 PT/INR, D-dimer PT 14.0 Seconds (9.4-12.1) H 07/20/17 11:34 Abnormal lab findings: Abnormal lab results RBC 3.62 M/mcL (3.82-4.97) L 07/22/17 01:56 Hgb 8.9 g/dL (11.5-15.4) L 07/22/17 01:56 Hct 28.8 % (35.3-44.9) L 07/22/17 01:56 MCV 79.6 fL (83.0-100.0) L 07/22/17 01:56 MCH 24.6 pg (28.0-33.3) L 07/22/17 01:56 MCHC 30.9 g/dL (31.6-35.5) L 07/22/17 01:56 RDW 28.0 % (11.5-14.5) H 07/22/17 01:56 Lymphocytes # 0.5 K/mcL (0.6-4.6) L 07/22/17 01:56 Polychromasia 1+ (Not Present) A 07/21/17 03:17 Hypochromasia Present (Not Present) A 07/22/17 01:56 Poikilocytosis 1+ (Not Present) A 07/22/17 01:56 Anisocytosis 3+ (Not Present) A 07/22/17 01:56 Microcytosis Present (Not Present) A 07/22/17 01:56 PT 14.0 Seconds (9.4-12.1) H 07/20/17 11:34 ABG pH 7.46 pH Units (7.32-7.45) H D 07/20/17 14:34 ABG pCO2 56 mmHg (35-45) H D 07/20/17 14:34 ABG pO2 47 mmHg (85-104) L* D 07/20/17 14:34 ABG HCO3 40 mEq/L (21-27) H 07/20/17 14:34 ABG Total CO2 42 mEq/L (20-26) H 07/20/17 14:34 ABG O2 Saturation 84 % (95-98) L 07/20/17 14:34 ABG Base Excess 14 mEq/L (-2 to 3) H 07/20/17 14:34 Sodium 135 mEq/L (136-145) L 07/22/17 01:56 Chloride 94 mEq/L (98-107) L 07/22/17 01:56 Carbon Dioxide 36 mEq/L (23-29) H 07/22/17 01:56 Glucose 136 mg/dL (70-105) H 07/22/17 01:56 POC Glucose 133 (58-89) H 07/21/17 20:06 B-Natriuretic Peptide 1185 pg/mL (Less than 100) H 07/20/17 11:34 Serum Total Protein 5.7 g/dL (6.4-8.9) L 07/20/17 17:56 Albumin 2.9 g/dL (3.5-5.7) L 07/20/17 17:56 Albumin/Globulin Ratio 1.0 (1.1-2.2) L 07/20/17 17:56 Vancomycin Trough 9.6 mcg/mL (10-20) L 07/22/17 01:56 - Clinical Findings Intake & Output: Intake & Output 07/22/17 07/22/17 07/22/17 07:59 15:59 23:59 Intake Total 830 / 830 630 / 630 582.5 / 582.5 Output Total 900 / 900 1800 / 1800 700 / 700 Balance -70 / -70 -1170 / -1170 -117.5 / -117.5 - Attending Attestation I saw the patient with the resident agree with History and Physical exam findings. 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 With history of malignancy possible PE , LE dopplers and LUE doppler to rule out DVT but the prelim came negative low suspicion for PE in the setting of strong alternative diagnosis will stop IV heparin. BIPAP at night Cardiac : A fib with RVR on amiodarone drip will transition to lopressor will reasses Nutrition/GI: Patient can feed if pass swallow eval PPI prophylaxis Renal : labs reviewed Heme onc : Labs reviewed ID : [email or web address] , lactate normal will cover with broad spectrum antibiotics, hypotension comes when the atrial frbrillation with RVR low concern for septic shock for now . Musculo skeletal / skin issues : No acute issues Disposition : Critically ill Code status: Full code Family/POA: met the family. Spent 32 minutes of critical care time in medical decision making in preventing vital organ decline.
[2017-07-22] MEDS ORDERED: Furosemide 40 MG/4 ML VIAL IVP ONE (09:30)
[2017-07-22] MEDS: Potassium Chloride 40 MEQ/200 ML BAG IVPB PRN ×2 (09:31→17:16)
[2017-07-22] MEDS ORDERED: Aminoglycoside Consult 1 EACH MC ONE (12:18)
[2017-07-22] MEDS ORDERED: Vancomycin 500 MG in 0.9 % Sodium Chloride Mini Bag 100 ML IVPB SCH (15:00)
[2017-07-22] MEDS: Phenylephrine 10 MG in D5% in Water 250 ML IVC SCH (18:45)
[2017-07-23] MEDS: MethylPREDNISolone 40 MG/ML VIAL IVP SCH ×3 (00:21→16:48)
[2017-07-23] MEDS: Piperacillin/Tazobactam 3.375 GM/200 ML BAG IVPB SCH ×3 (01:23→16:47)
[2017-07-23] MEDS: Ipratropium/Albuterol Neb 3 ML IH SCH ×4 (03:26→21:32)
[2017-07-23 04:06] LABS: Hemoglobin 9.2 g/dL (11.5-15.4); Immature Granulocytes % 0.6 % (0-4)
[2017-07-23 04:08] LABS: Hematocrit 30.1 % (35.3-44.9); Immature Platelets 6.3 % (1.1-6.1); Lymphocytes # 0.5 K/mcL (0.6-4.6); Lymphocytes % 8.1 %; Mean Corpuscular HGB Conc 30.6 g/dL (31.6-35.5); Mean Corpuscular Hemoglobin 24.5 pg (28.0-33.3); Mean Corpuscular Volume 80.3 fL (83.0-100.0); Mean Platelet Volume 10.8 fL (9.4-12.4); Monocytes # 0.3 K/mcL (0.0-1.3); Monocytes % 4.5 %; Neutrophils # 5.8 K/mcL (1.6-8.9); Platelet Count 149 K/mcL (140-400); Red Blood Count 3.75 M/mcL (3.82-4.97); Red Cell Distribution Width 28.1 % (11.5-14.5); Segmented Neutrophils % 86.8 %
[2017-07-23 04:22] LABS: BUN/Creatinine Ratio 21 (6-26); Blood Urea Nitrogen 15 mg/dL (8-23); Calcium 8.4 mg/dL (8.6-10.3); Carbon Dioxide 38 mEq/L (23-29); Chloride 96 mEq/L (98-107); Glucose 125 mg/dL (70-105); Osmolality,Calculated 286 (280-300); Potassium 4.2 mEq/L (3.5-5.1); Sodium 137 mEq/L (136-145); eGFR For African Americans > 60 (> 60); eGFR For Non-African Americans > 60 (> 60)
[2017-07-23 04:48] LABS: Anisocytosis 2+ (Not Present); Burr Cells 1+ (Not Present); Platelet Estimate Normal (Normal); Poikilocytosis 1+ (Not Present)
[2017-07-23] MEDS: Famotidine 20 MG/2 ML VIAL IVP SCH (05:44)
[2017-07-23] MEDS: *HR* Enoxaparin 40 MG/0.4 ML SYRINGE SQ SCH (05:45)
--- NOTE | 2017-07-23 08:14 | Pulmonology Progress Note ---
<Twan Leiva - Last Filed: 07/23/17 13:22> Date of Encounter: 07/23/17 Time of Encounter: 08:13 Assessment and Plan (1) Acute and chronic respiratory failure with hypoxia Current Visit: No Status: Acute Pt on 2L NC at home Acute on chronic resp failure likely 2/2 dCHF, PNA, pt required BiPAP cxs ngtd flu - patient off BiPAP vanc stopped yesterday Plan: continue zosyn, levaquin continue steroids continue duonebs/albuterol (2) Atrial fibrillation with RVR Current Visit: Yes Status: Chronic Likely 2/2 dCHF BNP:1185 pt placed on amiodarone drip HR and BP currently controlled transitioned to PO lopressor 12.5 BID a fib reoccured overnight leading to hypotension requiring pressors and restarting amiodarone drip Plan: stop amiodarone drip pt off pressors Increased Lopressor to 25mg BID continue to monitor (3) Pleural effusion on left Current Visit: No Status: Acute Patient has a small left sided pleural effusion based on CXR likely 2/2 to dCHF(chronic) Gave 40mg IV lasix yesterday Plan: continue to monitor giving 20mg IV lasix today (4) COPD with exacerbation Current Visit: No Status: Acute Pt with Hx of COPD Patient started on duonebs, and IV steroids Plan: Continue duonebs reduce steroids to 40 Q12 continue to ween oxygen as able. (5) Pneumonia Current Visit: Yes Status: Suspected New LLL infiltrate on CXR Patient with recent hospitalization so HCAP must be considered Patient started on Vanc, zosyn, and levaquin stopped Vanc yesterday Plan: continue abx with plans to de-escalate as able Qualifiers: Pneumonia type: due to other aerobic Gram-negative bacteria Laterality: left Lung location: lower lobe of lung Qualified Code(s): J15.6 - Pneumonia due to other Gram-negative bacteria (6) History of malignant neoplasm metastatic to lung Current Visit: No Status: Acute Hx of CA with R pneumonectomy (7) Lactic acidosis Current Visit: Yes Status: Acute resolved LA 3.3 upon presentation to ICU 2/2 to respiratory failure repeat 1.6 Plan: Continue to treat underlying conditions (8) Hyperglycemia Current Visit: Yes Status: Acute Patient with elevated blood sugars, not a known diabetic Started on cardiac diet Started on SSI low dose with Accuchecks Plan: continue SSI (9) DVT prophylaxis Current Visit: No Status: Acute Patient was on heparin drip for concern for PE Venous doplers negative Heparin drip stopped Started patient on lovenox Plan: continue lovenox Subjective Principal diagnosis: Acute Respiratory Failure with hypoxia Interval history: Patient reports feeling well and having no complaints at this time. Patient had resumption of A fib with episodes of hypotension requiring restarting of amiodarone drip and phenylepherine. Now back off amio drip and pressors. Increased lopressor dose. will watch one more day in the ICU. Objective PUL Vital signs: Last Vital Signs Temp 98.0 F 07/23/17 07:24 Pulse 128 07/23/17 06:00 Resp 14 07/23/17 06:00 BP 108/71 07/23/17 06:00 Pulse Ox 100 07/23/17 06:00 General appearance: no acute distress Eyes: nonicteric ENT: oropharynx moist Neck: supple Effort: normal Auscultation: left: clear, right: diminished breath sounds Cardiovascular: irregular rhythm Gastrointestinal: normoactive bowel sounds, soft, non-tender, non-distended Integumentary: normal Extremities: no cyanosis Musculoskeletal: no deformities normal mental status, non-focal exam mood appropriate, affect normal Results - Laboratory Findings CBC and BMP: 07/23/17 03:54 07/23/17 03:54 ABG ABG pH 7.46 pH Units (7.32-7.45) H D 07/20/17 14:34 ABG pCO2 56 mmHg (35-45) H D 07/20/17 14:34 ABG pO2 47 mmHg (85-104) L* D 07/20/17 14:34 ABG O2 Saturation 84 % (95-98) L 07/20/17 14:34 PT/INR, D-dimer PT 14.0 Seconds (9.4-12.1) H 07/20/17 11:34 Abnormal lab findings: Abnormal lab results RBC 3.75 M/mcL (3.82-4.97) L 07/23/17 03:54 Hgb 9.2 g/dL (11.5-15.4) L 07/23/17 03:54 Hct 30.1 % (35.3-44.9) L 07/23/17 03:54 MCV 80.3 fL (83.0-100.0) L 07/23/17 03:54 MCH 24.5 pg (28.0-33.3) L 07/23/17 03:54 MCHC 30.6 g/dL (31.6-35.5) L 07/23/17 03:54 RDW 28.1 % (11.5-14.5) H 07/23/17 03:54 Lymphocytes # 0.5 K/mcL (0.6-4.6) L 07/23/17 03:54 Immature Plt Fraction 6.3 % (1.1-6.1) H 07/23/17 03:54 Polychromasia 1+ (Not Present) A 07/21/17 03:17 Hypochromasia Present (Not Present) A 07/22/17 01:56 Poikilocytosis 1+ (Not Present) A 07/23/17 03:54 Anisocytosis 2+ (Not Present) A 07/23/17 03:54 Microcytosis Present (Not Present) A 07/22/17 01:56 [place] Cells 1+ (Not Present) A 07/23/17 03:54 PT 14.0 Seconds (9.4-12.1) H 07/20/17 11:34 ABG pH 7.46 pH Units (7.32-7.45) H D 07/20/17 14:34 ABG pCO2 56 mmHg (35-45) H D 07/20/17 14:34 ABG pO2 47 mmHg (85-104) L* D 07/20/17 14:34 ABG HCO3 40 mEq/L (21-27) H 07/20/17 14:34 ABG Total CO2 42 mEq/L (20-26) H 07/20/17 14:34 ABG O2 Saturation 84 % (95-98) L 07/20/17 14:34 ABG Base Excess 14 mEq/L (-2 to 3) H 07/20/17 14:34 Chloride 96 mEq/L (98-107) L 07/23/17 03:54 Carbon Dioxide 38 mEq/L (23-29) H 07/23/17 03:54 Glucose 125 mg/dL (70-105) H 07/23/17 03:54 POC Glucose 122 (58-89) H 07/23/17 07:09 Calcium 8.4 mg/dL (8.6-10.3) L 07/23/17 03:54 B-Natriuretic Peptide 1185 pg/mL (Less than 100) H 07/20/17 11:34 Serum Total Protein 5.7 g/dL (6.4-8.9) L 07/20/17 17:56 Albumin 2.9 g/dL (3.5-5.7) L 07/20/17 17:56 Albumin/Globulin Ratio 1.0 (1.1-2.2) L 07/20/17 17:56 Vancomycin Trough 9.6 mcg/mL (10-20) L 07/22/17 01:56 - Clinical Findings Intake & Output: Intake & Output 07/22/17 07/23/17 07/23/17 23:59 07:59 15:59 Intake Total 782.5 / 782.5 200 / 200 Output Total 700 / 700 200 / 200 Balance 82.5 / 82.5 0 / 0 Weight 60.1 kg - VTE Documentation of Mechanical Device: Graduated compression elastic hosiery Consult Discharge Plan - Plan Referrals: Senait Wong, FERRYBOAT TICKET TAKER [Primary Care Provider] - <Azam Lofton - Last Filed: 07/23/17 22:08> Date of Encounter: 07/23/17 Objective PUL Vital signs: Last Vital Signs Temp 97.5 F L 07/23/17 11:55 Pulse 130 07/23/17 15:19 Resp 20 07/23/17 14:00 BP 98/71 07/23/17 14:00 Pulse Ox 100 07/23/17 14:00 Results - Laboratory Findings CBC and BMP: 07/23/17 03:54 07/23/17 03:54 ABG ABG pH 7.46 pH Units (7.32-7.45) H D 07/20/17 14:34 ABG pCO2 56 mmHg (35-45) H D 07/20/17 14:34 ABG pO2 47 mmHg (85-104) L* D 07/20/17 14:34 ABG O2 Saturation 84 % (95-98) L 07/20/17 14:34 PT/INR, D-dimer PT 14.0 Seconds (9.4-12.1) H 07/20/17 11:34 Abnormal lab findings: Abnormal lab results RBC 3.75 M/mcL (3.82-4.97) L 07/23/17 03:54 Hgb 9.2 g/dL (11.5-15.4) L 07/23/17 03:54 Hct 30.1 % (35.3-44.9) L 07/23/17 03:54 MCV 80.3 fL (83.0-100.0) L 07/23/17 03:54 MCH 24.5 pg (28.0-33.3) L 07/23/17 03:54 MCHC 30.6 g/dL (31.6-35.5) L 07/23/17 03:54 RDW 28.1 % (11.5-14.5) H 07/23/17 03:54 Lymphocytes # 0.5 K/mcL (0.6-4.6) L 07/23/17 03:54 Immature Plt Fraction 6.3 % (1.1-6.1) H 07/23/17 03:54 Polychromasia 1+ (Not Present) A 07/21/17 03:17 Hypochromasia Present (Not Present) A 07/22/17 01:56 Poikilocytosis 1+ (Not Present) A 07/23/17 03:54 Anisocytosis 2+ (Not Present) A 07/23/17 03:54 Microcytosis Present (Not Present) A 07/22/17 01:56 [place] Cells 1+ (Not Present) A 07/23/17 03:54 PT 14.0 Seconds (9.4-12.1) H 07/20/17 11:34 ABG pH 7.46 pH Units (7.32-7.45) H D 07/20/17 14:34 ABG pCO2 56 mmHg (35-45) H D 07/20/17 14:34 ABG pO2 47 mmHg (85-104) L* D 07/20/17 14:34 ABG HCO3 40 mEq/L (21-27) H 07/20/17 14:34 ABG Total CO2 42 mEq/L (20-26) H 07/20/17 14:34 ABG O2 Saturation 84 % (95-98) L 07/20/17 14:34 ABG Base Excess 14 mEq/L (-2 to 3) H 07/20/17 14:34 Chloride 96 mEq/L (98-107) L 07/23/17 03:54 Carbon Dioxide 38 mEq/L (23-29) H 07/23/17 03:54 Glucose 125 mg/dL (70-105) H 07/23/17 03:54 POC Glucose 154 (58-89) H 07/23/17 15:26 Calcium 8.4 mg/dL (8.6-10.3) L 07/23/17 03:54 B-Natriuretic Peptide 1185 pg/mL (Less than 100) H 07/20/17 11:34 Serum Total Protein 5.7 g/dL (6.4-8.9) L 07/20/17 17:56 Albumin 2.9 g/dL (3.5-5.7) L 07/20/17 17:56 Albumin/Globulin Ratio 1.0 (1.1-2.2) L 07/20/17 17:56 Vancomycin Trough 9.6 mcg/mL (10-20) L 07/22/17 01:56 - Clinical Findings Intake & Output: Intake & Output 07/22/17 07/23/17 07/23/17 23:59 07:59 15:59 Intake Total 782.5 / 782.5 200 / 200 200 / 200 Output Total 700 / 700 200 / 200 600 / 600 Balance 82.5 / 82.5 0 / 0 -400 / -400 Weight 60.1 kg - Attending Attestation I saw the patient with the resident agree with History and Physical exam findings. 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 With history of malignancy possible PE , LE dopplers and LUE doppler to rule out DVT but the prelim came negative low suspicion for PE in the setting of strong alternative diagnosis will stop IV heparin. BIPAP at night . Patient continues to improve with treatment of pneumonia and COPD exacerbation Cardiac : A fib with RVR will transition to lopressor for rate controlled to increase the dose today with blood pressure will use phenylephrine Nutrition/GI: Patient is takinG po Renal : labs reviewed Heme onc : Labs reviewed ID : [email or web address] , lactate normal will descalate antibiotics Musculo skeletal / skin issues : No acute issues Disposition : Step down . Code status: Full code Family/POA: met the family.
[2017-07-23] MEDS: Amiodarone Premix 360 MG/200 ML BAG IVC SCH (08:54)
[2017-07-23] MEDS: Furosemide 20 MG/2 ML VIAL IVP SCH (09:49)
[2017-07-23] MEDS: Artificial Tears SOLN 15 ML BOTTLE BOTH EYES SCH ×4 (09:49→19:57)
[2017-07-23] MEDS: Insulin LISPRO 300 UNITS/3 ML VIAL SQ SCH ×4 (09:50→19:37)
[2017-07-23] MEDS: Levofloxacin 750 MG/150 ML 750 MG/150 ML BAG IVPB SCH (09:50)
[2017-07-23] MEDS: TARCEVA PO SCH (09:51)
[2017-07-23] MEDS: Famotidine 20 MG TABLET PO SCH (16:48)
[2017-07-24] MEDS: Piperacillin/Tazobactam 3.375 GM/200 ML BAG IVPB SCH ×3 (02:32→18:13)
[2017-07-24 04:20] LABS: Hemoglobin 9.7 g/dL (11.5-15.4)
[2017-07-24 04:22] LABS: Hematocrit 32.5 % (35.3-44.9); Immature Granulocytes % 0.6 % (0-4); Immature Platelets 6.8 % (1.1-6.1); Lymphocytes # 0.7 K/mcL (0.6-4.6); Lymphocytes % 10.7 %; Mean Corpuscular HGB Conc 29.8 g/dL (31.6-35.5); Mean Corpuscular Hemoglobin 24.3 pg (28.0-33.3); Mean Corpuscular Volume 81.3 fL (83.0-100.0); Mean Platelet Volume 10.7 fL (9.4-12.4); Monocytes # 0.4 K/mcL (0.0-1.3); Monocytes % 6.1 %; Platelet Count 153 K/mcL (140-400); Red Cell Distribution Width 27.9 % (11.5-14.5); Segmented Neutrophils % 82.6 %
[2017-07-24] MEDS: Ipratropium/Albuterol Neb 3 ML IH SCH ×4 (04:23→22:42)
[2017-07-24 04:34] LABS: Neutrophils # 5.6 K/mcL (1.6-8.9)
[2017-07-24 04:35] LABS: BUN/Creatinine Ratio 28 (6-26); Blood Urea Nitrogen 20 mg/dL (8-23); Calcium 8.5 mg/dL (8.6-10.3); Carbon Dioxide 39 mEq/L (23-29); Chloride 97 mEq/L (98-107); Glucose 112 mg/dL (70-105); Magnesium 1.9 mg/dL (1.6-2.6); Osmolality,Calculated 289 (280-300); Potassium 3.9 mEq/L (3.5-5.1); Sodium 138 mEq/L (136-145); eGFR For African Americans > 60 (> 60); eGFR For Non-African Americans > 60 (> 60)
[2017-07-24 05:13] LABS: Anisocytosis 3+ (Not Present); Hypochromasia Present (Not Present); Large Platelets Present (Not Present); Macrocytosis Present (Not Present); Microcytosis Present (Not Present); Platelet Estimate Normal (Normal); Poikilocytosis 2+ (Not Present)
[2017-07-24] MEDS: MethylPREDNISolone 40 MG/ML VIAL IVP SCH ×2 (06:04→18:12)
[2017-07-24] MEDS: *HR* Enoxaparin 40 MG/0.4 ML SYRINGE SQ SCH (06:04)
[2017-07-24] MEDS: Famotidine 20 MG TABLET PO SCH ×2 (06:04→18:13)
[2017-07-24] MEDS: Furosemide 20 MG/2 ML VIAL IVP SCH (08:31)
[2017-07-24] MEDS: Artificial Tears SOLN 15 ML BOTTLE BOTH EYES SCH ×4 (08:35→19:53)
[2017-07-24] MEDS: Insulin LISPRO 300 UNITS/3 ML VIAL SQ SCH ×4 (08:35→19:47)
[2017-07-24] MEDS: Levofloxacin 750 MG/150 ML 750 MG/150 ML BAG IVPB SCH (08:35)
[2017-07-24] MEDS: TARCEVA PO SCH (08:39)
--- NOTE | 2017-07-24 08:56 | Pulmonology Progress Note ---
Addendum entered and electronically signed by Twan Leiva DO 07/24/17 09:22 : Patient was scheduled to have an EGD dilation of esophageal stricture prior to being admitted. Per patient GI planned to do procedure while she was admitted. Contact GI on Wednesday to set up dilation for patient. Original Note: <Twan Leiva - Last Filed: 07/24/17 08:54> Date of Encounter: 07/24/17 Time of Encounter: 08:54 Assessment and Plan (1) Acute and chronic respiratory failure with hypoxia Current Visit: No Status: Acute Pt on 2L NC at home Acute on chronic resp failure likely 2/2 dCHF, PNA, pt required BiPAP cxs ngtd flu - patient off BiPAP vanc stopped Plan: continue zosyn, levaquin continue steroids continue duonebs/albuterol (2) Atrial fibrillation with RVR Current Visit: Yes Status: Chronic Likely 2/2 dCHF BNP:1185 pt placed on amiodarone drip HR and BP currently controlled transitioned to PO lopressor 12.5 BID a fib reoccured overnight leading to hypotension requiring pressors and restarting amiodarone drip stop amiodarone drip pt off pressors Increased Lopressor to 25mg BID Plan: a fib reoccured overnight leading to hypotension inreased Lopressor to 50mg BID. Patient is asymptomatic through out these episodes continue to monitor (3) Pleural effusion on left Current Visit: No Status: Acute Patient has a small left sided pleural effusion based on CXR likely 2/2 to dCHF(chronic) Gave 40mg IV lasix yesterday started on 20mg IV lasix daily Plan: continue lasix consider transition to PO continue to monitor (4) COPD with exacerbation Current Visit: No Status: Acute Pt with Hx of COPD Patient started on duonebs, and IV steroids reduced steroids to 40 Q12 Plan: Continue duonebs continue steroids continue to ween oxygen as able. (5) Pneumonia Current Visit: Yes Status: Suspected New LLL infiltrate on CXR Patient with recent hospitalization so HCAP must be considered Patient started on Vanc, zosyn, and levaquin stopped Vanc yesterday Plan: continue abx with plans to de-escalate as able Qualifiers: Pneumonia type: due to other aerobic Gram-negative bacteria Laterality: left Lung location: lower lobe of lung Qualified Code(s): J15.6 - Pneumonia due to other Gram-negative bacteria (6) History of malignant neoplasm metastatic to lung Current Visit: No Status: Acute Hx of CA with R pneumonectomy (7) Lactic acidosis Current Visit: Yes Status: Acute resolved LA 3.3 upon presentation to ICU 2/2 to respiratory failure repeat 1.6 Plan: Continue to treat underlying conditions (8) Hyperglycemia Current Visit: Yes Status: Acute Patient with elevated blood sugars, not a known diabetic Started on cardiac diet Started on SSI low dose with Accuchecks Plan: continue SSI (9) DVT prophylaxis Current Visit: No Status: Acute Patient was on heparin drip for concern for PE Venous doplers negative Heparin drip stopped Started patient on lovenox Plan: continue lovenox Subjective Principal diagnosis: Acute Respiratory Failure with hypoxia Interval history: Patient reports feeling well and having no complaints at this time. Patient again had resumption of A fib with episodes of hypotension. Increased lopressor dose. Will watch one more day in the ICU. Objective PUL Vital signs: Last Vital Signs Temp 97.9 F 07/24/17 08:18 Pulse 105 07/24/17 06:00 Resp 13 07/24/17 06:00 BP 107/76 07/24/17 06:00 Pulse Ox 99 07/24/17 06:00 General appearance: no acute distress Eyes: nonicteric ENT: oropharynx moist Neck: supple Effort: normal Auscultation: left: clear, right: diminished breath sounds Cardiovascular: irregular rhythm Gastrointestinal: normoactive bowel sounds Integumentary: normal Extremities: no cyanosis Musculoskeletal: no deformities normal mental status, non-focal exam mood appropriate, affect normal Results - Laboratory Findings CBC and BMP: 07/24/17 03:57 07/24/17 03:57 ABG ABG pH 7.46 pH Units (7.32-7.45) H D 07/20/17 14:34 ABG pCO2 56 mmHg (35-45) H D 07/20/17 14:34 ABG pO2 47 mmHg (85-104) L* D 07/20/17 14:34 ABG O2 Saturation 84 % (95-98) L 07/20/17 14:34 PT/INR, D-dimer PT 14.0 Seconds (9.4-12.1) H 07/20/17 11:34 Abnormal lab findings: Abnormal lab results Hgb 9.7 g/dL (11.5-15.4) L 07/24/17 03:57 Hct 32.5 % (35.3-44.9) L 07/24/17 03:57 MCV 81.3 fL (83.0-100.0) L 07/24/17 03:57 MCH 24.3 pg (28.0-33.3) L 07/24/17 03:57 MCHC 29.8 g/dL (31.6-35.5) L 07/24/17 03:57 RDW 27.9 % (11.5-14.5) H 07/24/17 03:57 Large Platelets Present (Not Present) A 07/24/17 03:57 Immature Plt Fraction 6.8 % (1.1-6.1) H 07/24/17 03:57 Polychromasia 1+ (Not Present) A 07/21/17 03:17 Hypochromasia Present (Not Present) A 07/24/17 03:57 Poikilocytosis 2+ (Not Present) A 07/24/17 03:57 Anisocytosis 3+ (Not Present) A 07/24/17 03:57 Microcytosis Present (Not Present) A 07/24/17 03:57 Macrocytosis Present (Not Present) A 07/24/17 03:57 [place] Cells 1+ (Not Present) A 07/23/17 03:54 PT 14.0 Seconds (9.4-12.1) H 07/20/17 11:34 ABG pH 7.46 pH Units (7.32-7.45) H D 07/20/17 14:34 ABG pCO2 56 mmHg (35-45) H D 07/20/17 14:34 ABG pO2 47 mmHg (85-104) L* D 07/20/17 14:34 ABG HCO3 40 mEq/L (21-27) H 07/20/17 14:34 ABG Total CO2 42 mEq/L (20-26) H 07/20/17 14:34 ABG O2 Saturation 84 % (95-98) L 07/20/17 14:34 ABG Base Excess 14 mEq/L (-2 to 3) H 07/20/17 14:34 Chloride 97 mEq/L (98-107) L 07/24/17 03:57 Carbon Dioxide 39 mEq/L (23-29) H 07/24/17 03:57 BUN/Creatinine Ratio 28 (6-26) H 07/24/17 03:57 Glucose 112 mg/dL (70-105) H 07/24/17 03:57 POC Glucose 109 (58-89) H 07/24/17 07:40 Calcium 8.5 mg/dL (8.6-10.3) L 07/24/17 03:57 B-Natriuretic Peptide 1185 pg/mL (Less than 100) H 07/20/17 11:34 Serum Total Protein 5.7 g/dL (6.4-8.9) L 07/20/17 17:56 Albumin 2.9 g/dL (3.5-5.7) L 07/20/17 17:56 Albumin/Globulin Ratio 1.0 (1.1-2.2) L 07/20/17 17:56 Vancomycin Trough 9.6 mcg/mL (10-20) L 07/22/17 01:56 - Clinical Findings Intake & Output: Intake & Output 07/23/17 07/24/17 07/24/17 23:59 07:59 15:59 Intake Total 450 / 450 200 / 200 Output Total 150 / 150 125 / 125 100 / 100 Balance 300 / 300 75 / 75 -100 / -100 Weight 60.1 kg - VTE Documentation of Mechanical Device: Graduated compression elastic hosiery Consult Discharge Plan - Plan Referrals: Senait Wong, MANAGEMENT SCIENTIST [Primary Care Provider] - <Azam Lofton - Last Filed: 07/24/17 22:42> Date of Encounter: 07/24/17 Objective PUL Vital signs: Last Vital Signs Temp 97.5 F L 07/24/17 19:19 Pulse 104 07/24/17 22:00 Resp 19 07/24/17 22:00 BP 121/83 07/24/17 22:00 Pulse Ox 97 07/24/17 22:00 Results - Laboratory Findings CBC and BMP: 07/24/17 03:57 07/24/17 03:57 ABG ABG pH 7.46 pH Units (7.32-7.45) H D 07/20/17 14:34 ABG pCO2 56 mmHg (35-45) H D 07/20/17 14:34 ABG pO2 47 mmHg (85-104) L* D 07/20/17 14:34 ABG O2 Saturation 84 % (95-98) L 07/20/17 14:34 PT/INR, D-dimer PT 14.0 Seconds (9.4-12.1) H 07/20/17 11:34 Abnormal lab findings: Abnormal lab results Hgb 9.7 g/dL (11.5-15.4) L 07/24/17 03:57 Hct 32.5 % (35.3-44.9) L 07/24/17 03:57 MCV 81.3 fL (83.0-100.0) L 07/24/17 03:57 MCH 24.3 pg (28.0-33.3) L 07/24/17 03:57 MCHC 29.8 g/dL (31.6-35.5) L 07/24/17 03:57 RDW 27.9 % (11.5-14.5) H 07/24/17 03:57 Large Platelets Present (Not Present) A 07/24/17 03:57 Immature Plt Fraction 6.8 % (1.1-6.1) H 07/24/17 03:57 Polychromasia 1+ (Not Present) A 07/21/17 03:17 Hypochromasia Present (Not Present) A 07/24/17 03:57 Poikilocytosis 2+ (Not Present) A 07/24/17 03:57 Anisocytosis 3+ (Not Present) A 07/24/17 03:57 Microcytosis Present (Not Present) A 07/24/17 03:57 Macrocytosis Present (Not Present) A 07/24/17 03:57 [place] Cells 1+ (Not Present) A 07/23/17 03:54 PT 14.0 Seconds (9.4-12.1) H 07/20/17 11:34 ABG pH 7.46 pH Units (7.32-7.45) H D 07/20/17 14:34 ABG pCO2 56 mmHg (35-45) H D 07/20/17 14:34 ABG pO2 47 mmHg (85-104) L* D 07/20/17 14:34 ABG HCO3 40 mEq/L (21-27) H 07/20/17 14:34 ABG Total CO2 42 mEq/L (20-26) H 07/20/17 14:34 ABG O2 Saturation 84 % (95-98) L 07/20/17 14:34 ABG Base Excess 14 mEq/L (-2 to 3) H 07/20/17 14:34 Chloride 97 mEq/L (98-107) L 07/24/17 03:57 Carbon Dioxide 39 mEq/L (23-29) H 07/24/17 03:57 BUN/Creatinine Ratio 28 (6-26) H 07/24/17 03:57 Glucose 112 mg/dL (70-105) H 07/24/17 03:57 POC Glucose 131 (58-89) H 07/24/17 19:17 Calcium 8.5 mg/dL (8.6-10.3) L 07/24/17 03:57 B-Natriuretic Peptide 1185 pg/mL (Less than 100) H 07/20/17 11:34 Serum Total Protein 5.7 g/dL (6.4-8.9) L 07/20/17 17:56 Albumin 2.9 g/dL (3.5-5.7) L 07/20/17 17:56 Albumin/Globulin Ratio 1.0 (1.1-2.2) L 07/20/17 17:56 Vancomycin Trough 9.6 mcg/mL (10-20) L 07/22/17 01:56 - Clinical Findings Intake & Output: Intake & Output 07/24/17 07/24/17 07/24/17 07:59 15:59 23:59 Intake Total 200 / 200 590 / 590 150 / 150 Output Total 125 / 125 1000 / 1000 350 / 350 Balance 75 / 75 -410 / -410 -200 / -200 Weight 60.1 kg - Attending Attestation I saw the patient with the resident agree with History and Physical exam findings. 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 With history of malignancy possible PE , LE dopplers and LUE doppler to rule out DVT but the prelim came negative low suspicion for PE in the setting of strong alternative diagnosis will stop IV heparin. BIPAP at night . Patient continues to improve with treatment of pneumonia and COPD exacerbation . To continue gram negative coverage will stop Zosyn tomorrow to continue levaquin Cardiac : A fib with RVR will increase the dose of lopressor 50 mg BID Nutrition/GI: Patient is taking PO Renal : labs reviewed Heme onc : Labs reviewed ID : Pneuomonia , cee descalate antibkiotics Musculo skeletal / skin issues : No acute issues Disposition : Step down . Code status: Full code Family/POA: met the family.
[2017-07-25] MEDS: Phenylephrine 10 MG in D5% in Water 250 ML IVC SCH (01:53)
[2017-07-25] MEDS: Piperacillin/Tazobactam 3.375 GM/200 ML BAG IVPB SCH (02:16)
[2017-07-25 03:22] LABS: Hematocrit 35.7 % (35.3-44.9); Hemoglobin 10.7 g/dL (11.5-15.4); Immature Granulocytes % 0.2 % (0-4); Lymphocytes # 0.7 K/mcL (0.6-4.6); Lymphocytes % 11.5 %; Mean Corpuscular Hemoglobin 24.2 pg (28.0-33.3); Mean Corpuscular Volume 80.8 fL (83.0-100.0); Mean Platelet Volume 9.8 fL (9.4-12.4); Monocytes # 0.5 K/mcL (0.0-1.3); Monocytes % 8.6 %; Neutrophils # 4.9 K/mcL (1.6-8.9); Platelet Count 148 K/mcL (140-400); Red Blood Count 4.42 M/mcL (3.82-4.97); Segmented Neutrophils % 79.7 %
[2017-07-25] MEDS: Ipratropium/Albuterol Neb 3 ML IH SCH ×4 (03:36→21:32)
[2017-07-25 03:49] LABS: Acanthocytes 3+ (Not Present); Platelet Estimate Slight Decrease (Normal); Poikilocytosis 3+ (Not Present)
[2017-07-25 03:50] LABS: Schistocytes 1+ (Not Present); Target Cells 1+ (Not Present)
[2017-07-25 03:52] LABS: BUN/Creatinine Ratio 27 (6-26); Blood Urea Nitrogen 21 mg/dL (8-23); Calcium 8.8 mg/dL (8.6-10.3); Carbon Dioxide 37 mEq/L (23-29); Chloride 96 mEq/L (98-107); Glucose 130 mg/dL (70-105); Magnesium 1.8 mg/dL (1.6-2.6); Osmolality,Calculated 291 (280-300); Potassium 3.8 mEq/L (3.5-5.1); Sodium 138 mEq/L (136-145); eGFR For African Americans > 60 (> 60); eGFR For Non-African Americans > 60 (> 60)
[2017-07-25] MEDS: Famotidine 20 MG TABLET PO SCH ×2 (05:19→17:33)
[2017-07-25] MEDS: MethylPREDNISolone 40 MG/ML VIAL IVP SCH ×2 (05:19→17:33)
[2017-07-25] MEDS: *HR* Enoxaparin 40 MG/0.4 ML SYRINGE SQ SCH (05:19)
[2017-07-25] MEDS: Insulin LISPRO 300 UNITS/3 ML VIAL SQ SCH ×4 (07:43→21:17)
[2017-07-25] MEDS: Artificial Tears SOLN 15 ML BOTTLE BOTH EYES SCH ×4 (07:44→21:17)
[2017-07-25] MEDS: Furosemide 20 MG/2 ML VIAL IVP SCH (07:47)
[2017-07-25] MEDS: Levofloxacin 750 MG/150 ML 750 MG/150 ML BAG IVPB SCH (07:47)
[2017-07-25] MEDS: TARCEVA PO SCH (07:52)
--- NOTE | 2017-07-25 08:02 | Pulmonology Progress Note ---
Date of Encounter: 07/25/17 Time of Encounter: 08:00 Assessment and Plan (1) Acute and chronic respiratory failure with hypoxia Current Visit: No Status: Acute secondary to pneumonia , COPD exacerbation , exacerbation of diastolic heart failure . (2) Atrial fibrillation with RVR Current Visit: Yes Status: Chronic To start on Cardizem 30 mg q 6hrly , Lopressor 25 mg BID patient has risk for anticoagulation had bleeding issues before . (3) Pleural effusion, left Current Visit: No Status: Acute small left sided effusion secondary to acute on chronic diastolic heart failure to continue diuresis as tolerated . (4) COPD with exacerbation Current Visit: No Status: Acute To continue bronchodilators and steroids to change PO prednisone tomorrow . (5) Pneumonia Current Visit: Yes Status: Suspected Patient is on ZOysn and levaquin will descalate zosyn tomorrow will give total of 7-10 days of levaquin Qualifiers: Pneumonia type: due to other aerobic Gram-negative bacteria Laterality: left Lung location: lower lobe of lung Qualified Code(s): J15.6 - Pneumonia due to other Gram-negative bacteria (6) DVT prophylaxis Current Visit: Yes Status: Acute will hold lovenox put on SCD since the development of hematuria . (7) Dysphagia Current Visit: Yes Status: Acute GI supposed to do EGD dilatation during last week as outpatient missed it will consult GI wednesday whether they will do it as inpatient or it will be rescheduled as outpatient . Qualifiers: Qualified Code(s): R13.10 - Dysphagia, unspecified Subjective Principal diagnosis: Acute Respiratory Failure with hypoxia Objective PUL Vital signs: Last Vital Signs Temp 97.8 F 07/25/17 03:00 Pulse 120 07/25/17 07:54 Resp 22 07/25/17 07:00 BP 93/78 07/25/17 07:00 Pulse Ox 94 07/25/17 07:00 Results - Laboratory Findings CBC and BMP: 07/25/17 03:11 07/25/17 03:11 ABG ABG pH 7.46 pH Units (7.32-7.45) H D 07/20/17 14:34 ABG pCO2 56 mmHg (35-45) H D 07/20/17 14:34 ABG pO2 47 mmHg (85-104) L* D 07/20/17 14:34 ABG O2 Saturation 84 % (95-98) L 07/20/17 14:34 PT/INR, D-dimer PT 14.0 Seconds (9.4-12.1) H 07/20/17 11:34 Abnormal lab findings: Abnormal lab results Hgb 10.7 g/dL (11.5-15.4) L 07/25/17 03:11 MCV 80.8 fL (83.0-100.0) L 07/25/17 03:11 MCH 24.2 pg (28.0-33.3) L 07/25/17 03:11 MCHC 30.0 g/dL (31.6-35.5) L 07/25/17 03:11 Platelet Estimate Slight Decrease (Normal) L 07/25/17 03:11 Large Platelets Present (Not Present) A 07/24/17 03:57 Immature Plt Fraction 6.8 % (1.1-6.1) H 07/24/17 03:57 Polychromasia 1+ (Not Present) A 07/21/17 03:17 Hypochromasia Present (Not Present) A 07/24/17 03:57 Poikilocytosis 3+ (Not Present) A 07/25/17 03:11 Anisocytosis 3+ (Not Present) A 07/24/17 03:57 Microcytosis Present (Not Present) A 07/24/17 03:57 Macrocytosis Present (Not Present) A 07/24/17 03:57 Target Cells 1+ (Not Present) A 07/25/17 03:11 [place] Cells 1+ (Not Present) A 07/23/17 03:54 Acanthocytes (Spur) 3+ (Not Present) A 07/25/17 03:11 Schistocytes 1+ (Not Present) A 07/25/17 03:11 PT 14.0 Seconds (9.4-12.1) H 07/20/17 11:34 ABG pH 7.46 pH Units (7.32-7.45) H D 07/20/17 14:34 ABG pCO2 56 mmHg (35-45) H D 07/20/17 14:34 ABG pO2 47 mmHg (85-104) L* D 07/20/17 14:34 ABG HCO3 40 mEq/L (21-27) H 07/20/17 14:34 ABG Total CO2 42 mEq/L (20-26) H 07/20/17 14:34 ABG O2 Saturation 84 % (95-98) L 07/20/17 14:34 ABG Base Excess 14 mEq/L (-2 to 3) H 07/20/17 14:34 Chloride 96 mEq/L (98-107) L 07/25/17 03:11 Carbon Dioxide 37 mEq/L (23-29) H 07/25/17 03:11 BUN/Creatinine Ratio 27 (6-26) H 07/25/17 03:11 Glucose 130 mg/dL (70-105) H 07/25/17 03:11 POC Glucose 103 (58-89) H 07/25/17 07:24 B-Natriuretic Peptide 1185 pg/mL (Less than 100) H 07/20/17 11:34 Serum Total Protein 5.7 g/dL (6.4-8.9) L 07/20/17 17:56 Albumin 2.9 g/dL (3.5-5.7) L 07/20/17 17:56 Albumin/Globulin Ratio 1.0 (1.1-2.2) L 07/20/17 17:56 Vancomycin Trough 9.6 mcg/mL (10-20) L 07/22/17 01:56 - Clinical Findings Intake & Output: Intake & Output 07/24/17 07/25/17 07/25/17 23:59 07:59 15:59 Intake Total 350 / 350 240 / 240 Output Total 375 / 375 50 / 50 Balance -25 / -25 190 / 190 Weight 58.4 kg - VTE Documentation of Mechanical Device: Graduated compression elastic hosiery Consult Discharge Plan - Plan Referrals: Senait Wong, BLENDING TECHNICIAN [Primary Care Provider] -
[2017-07-25] MEDS ORDERED: *HR* Metoprolol 5 MG/5 ML VIAL IVP ONE (11:23)
[2017-07-25] MEDS: Levalbuterol Neb 0.63 MG/3 ML IH SCH ×2 (15:33→21:32)
[2017-07-26] MEDS: Phenylephrine 10 MG in D5% in Water 250 ML IVC SCH (00:15)
[2017-07-26] MEDS: Levalbuterol Neb 0.63 MG/3 ML IH SCH ×4 (04:15→23:14)
[2017-07-26 04:42] LABS: Basophils % 0.2 %; Hemoglobin 11.5 g/dL (11.5-15.4); Immature Granulocytes % 0.5 % (0-4)
[2017-07-26 04:44] LABS: Hematocrit 38.6 % (35.3-44.9); Immature Platelets 6.9 % (1.1-6.1); Lymphocytes # 1.1 K/mcL (0.6-4.6); Mean Corpuscular HGB Conc 29.8 g/dL (31.6-35.5); Mean Corpuscular Volume 80.4 fL (83.0-100.0); Mean Platelet Volume 10.9 fL (9.4-12.4); Monocytes # 0.5 K/mcL (0.0-1.3); Monocytes % 7.9 %; Neutrophils # 4.6 K/mcL (1.6-8.9); Platelet Count 161 K/mcL (140-400); Red Cell Distribution Width 27.9 % (11.5-14.5); Segmented Neutrophils % 74.4 %
[2017-07-26 05:05] LABS: BUN/Creatinine Ratio 28 (6-26); Blood Urea Nitrogen 22 mg/dL (8-23); Calcium 9.1 mg/dL (8.6-10.3); Carbon Dioxide 39 mEq/L (23-29); Chloride 95 mEq/L (98-107); Glucose 132 mg/dL (70-105); Magnesium 1.9 mg/dL (1.6-2.6); Osmolality,Calculated 293 (280-300); Potassium 4.4 mEq/L (3.5-5.1); Sodium 139 mEq/L (136-145); eGFR For African Americans > 60 (> 60); eGFR For Non-African Americans > 60 (> 60)
[2017-07-26 05:22] LABS: Anisocytosis 2+ (Not Present); Platelet Estimate Normal (Normal); Poikilocytosis 1+ (Not Present); Schistocytes 1+ (Not Present)
[2017-07-26] MEDS: Ipratropium/Albuterol Neb 3 ML IH SCH ×4 (05:34→23:14)
[2017-07-26] MEDS: Famotidine 20 MG TABLET PO SCH ×2 (05:54→18:32)
[2017-07-26] MEDS: MethylPREDNISolone 40 MG/ML VIAL IVP SCH (05:54)
[2017-07-26] MEDS: Insulin LISPRO 300 UNITS/3 ML VIAL SQ SCH ×4 (08:01→19:44)
[2017-07-26] MEDS: Furosemide 20 MG/2 ML VIAL IVP SCH (08:01)
[2017-07-26] MEDS: Levofloxacin 750 MG/150 ML 750 MG/150 ML BAG IVPB SCH (08:01)
[2017-07-26] MEDS: Artificial Tears SOLN 15 ML BOTTLE BOTH EYES SCH ×4 (08:02→20:40)
[2017-07-26] MEDS: TARCEVA PO SCH (08:03)
--- NOTE | 2017-07-26 09:17 | Pulmonology Progress Note ---
<Rafael Cates - Last Filed: 07/26/17 10:12> Date of Encounter: 07/26/17 Time of Encounter: 09:15 Assessment and Plan (1) Acute and chronic respiratory failure with hypoxia Current Visit: No Status: Acute Acute on chronic respiratory failure with hypoxia secondary to pneumonia, COPD exacerbation and diastolic CHF exacerbation Patient required BiPAP Blood cultures negative Flu negative Plan: Change to PO Levaquin Steroids Dounebs (2) Pneumonia Current Visit: No Status: Acute Chest x-ray on arrival showing left lung consolidation No leukocytosis Vital signs stable Plan: Discontinued Zosyn yesterday Continue PO Levaquin for 7-10 days (day 4) Dounebs By mouth steroids Oxygen supplementation Qualifiers: Pneumonia type: due to unspecified organism Laterality: unspecified laterality Lung location: unspecified part of lung Qualified Code(s): J18.9 - Pneumonia, unspecified organism (3) COPD with exacerbation Current Visit: No Status: Acute Responding well to therapy at this time Continue oxygen supplementation PO Levaquin DuoNeb's Transition to by mouth steroids today (4) Acute on chronic diastolic heart failure Current Visit: No Status: Acute Last known ECHO 05/12/2017: - EF 60% - LV systolic function appears normal, Not all wall segments were well visualized. - Indeterminate diastolic function. - Mild tricuspid regurgitation, borderline pulmonary hypertension. - Not all [place] visualized - poor study d/t COPD Continue diuresis and optimal medical management (5) Atrial fibrillation with RVR Current Visit: Yes Status: Chronic Secondary to diastolic CHF exacerbation BNP 1185 Patient is off amiodarone drip and transitioned to PO meds Heart rate stable at this time Continue Cardizem 30 mg every 6 hours with Lopressor 25 mg twice a day History of bleeding on anticoagulation and will hold at this time (6) Pleural effusion, left Current Visit: No Status: Acute Small left sided effusion secondary to acute on chronic diastolic heart failure Plan: Will continue to diuresis as tolerated with Lasix 20 mg PO daily (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 Continue EPCDs Subjective Principal diagnosis: Acute Respiratory Failure with hypoxia Interval history: Patient admitted for acute on chronic respiratory failure with hypoxia secondary to COPD exacerbation and PNA Resting comfortably in bed this morning No concerns overnight No new complaints this morning - requesting that she receives EGD dilation Denies chest pain, shortness of breath, nausea, vomiting, abdominal pain, GI issues. Objective PUL Vital signs: Last Vital Signs Temp 97.6 F 07/26/17 07:38 Pulse 101 07/26/17 09:00 Resp 18 07/26/17 09:00 BP 108/75 07/26/17 09:00 Pulse Ox 93 07/26/17 09:00 General appearance: no acute distress Eyes: nonicteric ENT: oropharynx moist Neck: supple Effort: normal Auscultation: left: diminished breath sounds, bilateral: wheezes Cardiovascular: regular rate and rhythm Gastrointestinal: normoactive bowel sounds, non-distended Integumentary: normal Extremities: no cyanosis, no edema, no clubbing Musculoskeletal: no deformities, ROM normal normal mental status, non-focal exam mood appropriate, affect normal Results - Laboratory Findings CBC and BMP: 07/26/17 04:30 07/26/17 04:30 ABG ABG pH 7.46 pH Units (7.32-7.45) H D 07/20/17 14:34 ABG pCO2 56 mmHg (35-45) H D 07/20/17 14:34 ABG pO2 47 mmHg (85-104) L* D 07/20/17 14:34 ABG O2 Saturation 84 % (95-98) L 07/20/17 14:34 PT/INR, D-dimer PT 14.0 Seconds (9.4-12.1) H 07/20/17 11:34 Abnormal lab findings: Abnormal lab results MCV 80.4 fL (83.0-100.0) L 07/26/17 04:30 MCH 24.0 pg (28.0-33.3) L 07/26/17 04:30 MCHC 29.8 g/dL (31.6-35.5) L 07/26/17 04:30 RDW 27.9 % (11.5-14.5) H 07/26/17 04:30 Large Platelets Present (Not Present) A 07/24/17 03:57 Immature Plt Fraction 6.9 % (1.1-6.1) H 07/26/17 04:30 Polychromasia 1+ (Not Present) A 07/21/17 03:17 Hypochromasia Present (Not Present) A 07/24/17 03:57 Poikilocytosis 1+ (Not Present) A 07/26/17 04:30 Anisocytosis 2+ (Not Present) A 07/26/17 04:30 Microcytosis Present (Not Present) A 07/24/17 03:57 Macrocytosis Present (Not Present) A 07/24/17 03:57 Target Cells 1+ (Not Present) A 07/25/17 03:11 [place] Cells 1+ (Not Present) A 07/23/17 03:54 Acanthocytes (Spur) 3+ (Not Present) A 07/25/17 03:11 Schistocytes 1+ (Not Present) A 07/26/17 04:30 PT 14.0 Seconds (9.4-12.1) H 07/20/17 11:34 ABG pH 7.46 pH Units (7.32-7.45) H D 07/20/17 14:34 ABG pCO2 56 mmHg (35-45) H D 07/20/17 14:34 ABG pO2 47 mmHg (85-104) L* D 07/20/17 14:34 ABG HCO3 40 mEq/L (21-27) H 07/20/17 14:34 ABG Total CO2 42 mEq/L (20-26) H 07/20/17 14:34 ABG O2 Saturation 84 % (95-98) L 07/20/17 14:34 ABG Base Excess 14 mEq/L (-2 to 3) H 07/20/17 14:34 Chloride 95 mEq/L (98-107) L 07/26/17 04:30 Carbon Dioxide 39 mEq/L (23-29) H 07/26/17 04:30 BUN/Creatinine Ratio 28 (6-26) H 07/26/17 04:30 Glucose 132 mg/dL (70-105) H 07/26/17 04:30 POC Glucose 107 (58-89) H 07/26/17 07:12 B-Natriuretic Peptide 1185 pg/mL (Less than 100) H 07/20/17 11:34 Serum Total Protein 5.7 g/dL (6.4-8.9) L 07/20/17 17:56 Albumin 2.9 g/dL (3.5-5.7) L 07/20/17 17:56 Albumin/Globulin Ratio 1.0 (1.1-2.2) L 07/20/17 17:56 Vancomycin Trough 9.6 mcg/mL (10-20) L 07/22/17 01:56 - Clinical Findings Intake & Output: Intake & Output 07/25/17 07/26/17 07/26/17 23:59 07:59 15:59 Intake Total 360 / 360 Output Total 100 / 100 250 / 250 325 / 325 Balance -100 / -100 -250 / -250 35 / 35 Weight 60.9 kg - VTE Documentation of Mechanical Device: Graduated compression elastic hosiery Consult Discharge Plan - Plan Referrals: Senait Wong, THERAPEUTIC MENTOR [Primary Care Provider] - <Keara Leonard - Last Filed: 07/26/17 12:39> Date of Encounter: 07/26/17 Objective PUL Vital signs: Last Vital Signs Temp 96.9 F L 07/26/17 11:14 Pulse 118 07/26/17 12:00 Resp 18 07/26/17 11:14 BP 110/85 07/26/17 11:14 Pulse Ox 100 07/26/17 11:14 Results - Laboratory Findings CBC and BMP: 07/26/17 04:30 07/26/17 04:30 ABG ABG pH 7.46 pH Units (7.32-7.45) H D 07/20/17 14:34 ABG pCO2 56 mmHg (35-45) H D 07/20/17 14:34 ABG pO2 47 mmHg (85-104) L* D 07/20/17 14:34 ABG O2 Saturation 84 % (95-98) L 07/20/17 14:34 PT/INR, D-dimer PT 14.0 Seconds (9.4-12.1) H 07/20/17 11:34 Abnormal lab findings: Abnormal lab results MCV 80.4 fL (83.0-100.0) L 07/26/17 04:30 MCH 24.0 pg (28.0-33.3) L 07/26/17 04:30 MCHC 29.8 g/dL (31.6-35.5) L 07/26/17 04:30 RDW 27.9 % (11.5-14.5) H 07/26/17 04:30 Large Platelets Present (Not Present) A 07/24/17 03:57 Immature Plt Fraction 6.9 % (1.1-6.1) H 07/26/17 04:30 Polychromasia 1+ (Not Present) A 07/21/17 03:17 Hypochromasia Present (Not Present) A 07/24/17 03:57 Poikilocytosis 1+ (Not Present) A 07/26/17 04:30 Anisocytosis 2+ (Not Present) A 07/26/17 04:30 Microcytosis Present (Not Present) A 07/24/17 03:57 Macrocytosis Present (Not Present) A 07/24/17 03:57 Target Cells 1+ (Not Present) A 07/25/17 03:11 [place] Cells 1+ (Not Present) A 07/23/17 03:54 Acanthocytes (Spur) 3+ (Not Present) A 07/25/17 03:11 Schistocytes 1+ (Not Present) A 07/26/17 04:30 PT 14.0 Seconds (9.4-12.1) H 07/20/17 11:34 ABG pH 7.46 pH Units (7.32-7.45) H D 07/20/17 14:34 ABG pCO2 56 mmHg (35-45) H D 07/20/17 14:34 ABG pO2 47 mmHg (85-104) L* D 07/20/17 14:34 ABG HCO3 40 mEq/L (21-27) H 07/20/17 14:34 ABG Total CO2 42 mEq/L (20-26) H 07/20/17 14:34 ABG O2 Saturation 84 % (95-98) L 07/20/17 14:34 ABG Base Excess 14 mEq/L (-2 to 3) H 07/20/17 14:34 Chloride 95 mEq/L (98-107) L 07/26/17 04:30 Carbon Dioxide 39 mEq/L (23-29) H 07/26/17 04:30 BUN/Creatinine Ratio 28 (6-26) H 07/26/17 04:30 Glucose 132 mg/dL (70-105) H 07/26/17 04:30 POC Glucose 102 (58-89) H 07/26/17 11:19 B-Natriuretic Peptide 1185 pg/mL (Less than 100) H 07/20/17 11:34 Serum Total Protein 5.7 g/dL (6.4-8.9) L 07/20/17 17:56 Albumin 2.9 g/dL (3.5-5.7) L 07/20/17 17:56 Albumin/Globulin Ratio 1.0 (1.1-2.2) L 07/20/17 17:56 Vancomycin Trough 9.6 mcg/mL (10-20) L 07/22/17 01:56 - Clinical Findings Intake & Output: Intake & Output 07/25/17 07/26/17 07/26/17 23:59 07:59 15:59 Intake Total 510 / 510 Output Total 100 / 100 250 / 250 725 / 725 Balance -100 / -100 -250 / -250 -215 / -215 Weight 60.9 kg - Attending Attestation I examined this patient and my medical decision-making was reviewed with the Resident Physician. I agree with the documented findings, disposition and treatment plan as described except to the extent set forth below. Patient seen and examined. Labs, radiology, chart personally reviewed. Agree with resident's history and physical, assessment, plan with following comments: CABLE SWAGER: Patient follows commands, Pulmonary: Acceptable oxygenation and ventilation. Patient hemodynamically stable and is awaiting to be transferred to the floor. Change antibiotics to oral. Cardiovascular: stable GI: Nutrition per dietary and GI prophylaxis per routine. GI consultation Heme: DVT prophylaxis per routine ID: Continue antibiotics and plan to de-escalation Renal; urine out put and renal funtion reviewed. Remove Mo's catheter Endorcine: blood glucose is monitored Lines: all lines checked and no evidence of infections Skin: skin care to prevent pressure ulcers per nursing routine care
[2017-07-26] MEDS ORDERED: Ondansetron 4 MG/2 ML VIAL IVP PRN (10:26)
[2017-07-26] MEDS ORDERED: Acetaminophen 650 MG RECTAL SUPP RC PRN (10:26)
[2017-07-26] MEDS ORDERED: Naloxone 0.4 MG/ML INJ IVP PRN (10:26)
[2017-07-26] MEDS ORDERED: *HR* Morphine 2 MG/ML SYRINGE IVP PRN (10:26)
[2017-07-26] MEDS ORDERED: *HR* LORazepam 2 MG/ML VIAL IVP PRN (10:26)
[2017-07-26] MEDS ORDERED: *HR* Dextrose 50 % in Water (Syg) 50 ML SYRINGE IVP PRN (10:26)
[2017-07-26] MEDS ORDERED: D5% in Water 1,000 ML IVC PRN (10:26)
[2017-07-26] MEDS ORDERED: Dextrose Gel 15 GM/37.5 ML TUBE PO PRN ×2 (10:26)
[2017-07-26] MEDS ORDERED: Potassium Chloride 40 MEQ/200 ML BAG IVPB PRN (10:26)
[2017-07-26] MEDS: levoFLOXacin 750 MG TABLET PO SCH (11:52)
[2017-07-26] MEDS ORDERED: Famotidine 20 MG TABLET PO SCH (18:00)
[2017-07-27] MEDS: Levalbuterol Neb 0.63 MG/3 ML IH SCH ×2 (04:07→10:35)
[2017-07-27] MEDS: Ipratropium/Albuterol Neb 3 ML IH SCH ×2 (04:08→10:33)
[2017-07-27] MEDS: Famotidine 20 MG TABLET PO SCH ×2 (04:57→17:20)
[2017-07-27 08:05] LABS: Hemoglobin 11.4 g/dL (11.5-15.4); Lymphocytes % 11.8 %; Mean Corpuscular Hemoglobin 23.7 pg (28.0-33.3)
[2017-07-27 08:07] LABS: Hematocrit 38.2 % (35.3-44.9); Immature Granulocytes % 0.4 % (0-4); Immature Platelets 8.4 % (1.1-6.1); Lymphocytes # 1.3 K/mcL (0.6-4.6); Mean Corpuscular HGB Conc 29.8 g/dL (31.6-35.5); Mean Corpuscular Volume 79.4 fL (83.0-100.0); Monocytes # 1.2 K/mcL (0.0-1.3); Monocytes % 10.9 %; Platelet Count 151 K/mcL (140-400); Red Blood Count 4.81 M/mcL (3.82-4.97); Segmented Neutrophils % 76.9 %
[2017-07-27 08:09] LABS: Neutrophils # 8.2 K/mcL (1.6-8.9)
[2017-07-27] MEDS: Insulin LISPRO 300 UNITS/3 ML VIAL SQ SCH ×4 (08:13→20:45)
[2017-07-27] MEDS: predniSONE 20 MG TABLET PO SCH (08:20)
[2017-07-27] MEDS: levoFLOXacin 750 MG TABLET PO SCH (08:21)
[2017-07-27] MEDS: Artificial Tears SOLN 15 ML BOTTLE BOTH EYES SCH ×4 (08:21→20:45)
--- NOTE | 2017-07-27 08:34 | Pulmonology Progress Note ---
Addendum entered and electronically signed by Rafael Cates DO 07/27/17 10:42: Patient will be NPO at midnight for esophageal dilation. Decreased Lopressor back to home dose 12.5 BID. Original Note: <Rafael Cates - Last Filed: 07/27/17 08:43> Date of Encounter: 07/27/17 Time of Encounter: 08:28 Assessment and Plan (1) Acute and chronic respiratory failure with hypoxia Current Visit: No Status: Acute Acute on chronic respiratory failure with hypoxia secondary to pneumonia, COPD exacerbation and diastolic CHF exacerbation Patient does required BiPAP at night - tolerating well Blood cultures negative Flu negative Clinically improving See below for plan Medically stable to transfer to telemetry today, pending availability. (2) Pneumonia Current Visit: No Status: Acute Chest x-ray on arrival showing left lung consolidation No leukocytosis Vital signs stable Plan: Continue PO Levaquin for 7-10 days (day 5) Dounebs PO steroids Oxygen supplementation Qualifiers: Pneumonia type: due to unspecified organism Laterality: unspecified laterality Lung location: unspecified part of lung Qualified Code(s): J18.9 - Pneumonia, unspecified organism (3) COPD with exacerbation Current Visit: No Status: Acute Responding well to therapy at this time Continue oxygen supplementation PO Levaquin DuoNeb's PO steroids (4) Acute on chronic diastolic heart failure Current Visit: No Status: Acute Last known ECHO 05/12/2017: - EF 60% - LV systolic function appears normal, Not all wall segments were well visualized. - Indeterminate diastolic function. - Mild tricuspid regurgitation, borderline pulmonary hypertension. - Not all larsen visualized - poor study d/t COPD Trace LE edema Denies any PND but does report orthopnea Continue diuresis and optimal medical management (5) Atrial fibrillation with RVR Current Visit: Yes Status: Chronic Secondary to diastolic CHF exacerbation BNP 1185 Patient is off amiodarone drip and transitioned to PO meds Heart rate stable at this time Reviewed Dr. 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 Continue EPCDs Subjective Principal diagnosis: Acute Respiratory Failure with hypoxia Interval history: Patient admitted for acute on chronic respiratory failure with hypoxia secondary to COPD exacerbation and PNA Resting comfortably in bed this morning No concerns overnight GI did not see her yesterday for possible EGD dilation Denies chest pain, shortness of breath, nausea, vomiting, abdominal pain, GI issues. Objective PUL Vital signs: Last Vital Signs Temp 97.8 F 07/27/17 07:27 Pulse 59 07/27/17 07:40 Resp 20 07/27/17 07:00 BP 144/84 07/27/17 07:00 Pulse Ox 96 07/27/17 07:00 General appearance: no acute distress Eyes: nonicteric ENT: oropharynx moist Neck: supple Effort: normal Auscultation: bilateral: wheezes Cardiovascular: regular rate and rhythm Gastrointestinal: normoactive bowel sounds, non-distended Integumentary: normal Extremities: no cyanosis, no edema, no clubbing Musculoskeletal: no deformities, ROM normal normal mental status, non-focal exam mood appropriate, affect normal Results - Laboratory Findings CBC and BMP: 07/27/17 06:27 07/26/17 04:30 ABG ABG pH 7.46 pH Units (7.32-7.45) H D 07/20/17 14:34 ABG pCO2 56 mmHg (35-45) H D 07/20/17 14:34 ABG pO2 47 mmHg (85-104) L* D 07/20/17 14:34 ABG O2 Saturation 84 % (95-98) L 07/20/17 14:34 PT/INR, D-dimer PT 14.0 Seconds (9.4-12.1) H 07/20/17 11:34 Abnormal lab findings: Abnormal lab results Hgb 11.4 g/dL (11.5-15.4) L 07/27/17 06:27 MCV 79.4 fL (83.0-100.0) L 07/27/17 06:27 MCH 23.7 pg (28.0-33.3) L 07/27/17 06:27 MCHC 29.8 g/dL (31.6-35.5) L 07/27/17 06:27 Large Platelets Present (Not Present) A 07/24/17 03:57 Immature Plt Fraction 8.4 % (1.1-6.1) H 07/27/17 06:27 Polychromasia 1+ (Not Present) A 07/21/17 03:17 Hypochromasia Present (Not Present) A 07/24/17 03:57 Poikilocytosis 1+ (Not Present) A 07/26/17 04:30 Anisocytosis 2+ (Not Present) A 07/26/17 04:30 Microcytosis Present (Not Present) A 07/24/17 03:57 Macrocytosis Present (Not Present) A 07/24/17 03:57 Target Cells 1+ (Not Present) A 07/25/17 03:11 Armando Cells 1+ (Not Present) A 07/23/17 03:54 Acanthocytes (Spur) 3+ (Not Present) A 07/25/17 03:11 Schistocytes 1+ (Not Present) A 07/26/17 04:30 PT 14.0 Seconds (9.4-12.1) H 07/20/17 11:34 ABG pH 7.46 pH Units (7.32-7.45) H D 07/20/17 14:34 ABG pCO2 56 mmHg (35-45) H D 07/20/17 14:34 ABG pO2 47 mmHg (85-104) L* D 07/20/17 14:34 ABG HCO3 40 mEq/L (21-27) H 07/20/17 14:34 ABG Total CO2 42 mEq/L (20-26) H 07/20/17 14:34 ABG O2 Saturation 84 % (95-98) L 07/20/17 14:34 ABG Base Excess 14 mEq/L (-2 to 3) H 07/20/17 14:34 Chloride 95 mEq/L (98-107) L 07/26/17 04:30 Carbon Dioxide 39 mEq/L (23-29) H 07/26/17 04:30 BUN/Creatinine Ratio 28 (6-26) H 07/26/17 04:30 Glucose 132 mg/dL (70-105) H 07/26/17 04:30 POC Glucose 137 (58-89) H 07/26/17 19:43 B-Natriuretic Peptide 1185 pg/mL (Less than 100) H 07/20/17 11:34 Serum Total Protein 5.7 g/dL (6.4-8.9) L 07/20/17 17:56 Albumin 2.9 g/dL (3.5-5.7) L 07/20/17 17:56 Albumin/Globulin Ratio 1.0 (1.1-2.2) L 07/20/17 17:56 Vancomycin Trough 9.6 mcg/mL (10-20) L 07/22/17 01:56 - Clinical Findings Intake & Output: Intake & Output 07/26/17 07/27/17 07/27/17 23:59 07:59 15:59 Intake Total 290 / 290 60 / 60 Balance 290 / 290 60 / 60 Weight 59.3 kg - VTE Documentation of Mechanical Device: Graduated compression elastic hosiery Consult Discharge Plan - Plan Referrals: Senait Wong, RAIL CAR REPAIRER [Primary Care Provider] - <Keara Leonard - Last Filed: 07/27/17 15:28> Date of Encounter: 07/27/17 Objective PUL Vital signs: Last Vital Signs Temp 97.5 F L 07/27/17 11:39 Pulse 63 07/27/17 11:00 Resp 16 07/27/17 10:36 BP 144/84 07/27/17 07:00 Pulse Ox 96 07/27/17 10:36 Results - Laboratory Findings CBC and BMP: 07/27/17 06:27 07/27/17 06:27 ABG ABG pH 7.46 pH Units (7.32-7.45) H D 07/20/17 14:34 ABG pCO2 56 mmHg (35-45) H D 07/20/17 14:34 ABG pO2 47 mmHg (85-104) L* D 07/20/17 14:34 ABG O2 Saturation 84 % (95-98) L 07/20/17 14:34 PT/INR, D-dimer PT 14.0 Seconds (9.4-12.1) H 07/20/17 11:34 Abnormal lab findings: Abnormal lab results Hgb 11.4 g/dL (11.5-15.4) L 07/27/17 06:27 MCV 79.4 fL (83.0-100.0) L 07/27/17 06:27 MCH 23.7 pg (28.0-33.3) L 07/27/17 06:27 MCHC 29.8 g/dL (31.6-35.5) L 07/27/17 06:27 Large Platelets Present (Not Present) A 07/24/17 03:57 Immature Plt Fraction 8.4 % (1.1-6.1) H 07/27/17 06:27 Polychromasia 1+ (Not Present) A 07/21/17 03:17 Hypochromasia Present (Not Present) A 07/24/17 03:57 Poikilocytosis 2+ (Not Present) A 07/27/17 06:27 Anisocytosis 2+ (Not Present) A 07/27/17 06:27 Microcytosis Present (Not Present) A 07/24/17 03:57 Macrocytosis Present (Not Present) A 07/24/17 03:57 Target Cells 1+ (Not Present) A 07/25/17 03:11 Butler Cells 1+ (Not Present) A 07/23/17 03:54 Acanthocytes (Spur) 3+ (Not Present) A 07/25/17 03:11 Schistocytes 1+ (Not Present) A 07/26/17 04:30 PT 14.0 Seconds (9.4-12.1) H 07/20/17 11:34 ABG pH 7.46 pH Units (7.32-7.45) H D 07/20/17 14:34 ABG pCO2 56 mmHg (35-45) H D 07/20/17 14:34 ABG pO2 47 mmHg (85-104) L* D 07/20/17 14:34 ABG HCO3 40 mEq/L (21-27) H 07/20/17 14:34 ABG Total CO2 42 mEq/L (20-26) H 07/20/17 14:34 ABG O2 Saturation 84 % (95-98) L 07/20/17 14:34 ABG Base Excess 14 mEq/L (-2 to 3) H 07/20/17 14:34 Chloride 93 mEq/L (98-107) L 07/27/17 06:27 Carbon Dioxide 38 mEq/L (23-29) H 07/27/17 06:27 BUN 24 mg/dL (8-23) H 07/27/17 06:27 BUN/Creatinine Ratio 34 (6-26) H 07/27/17 06:27 POC Glucose 137 (58-89) H 07/26/17 19:43 Total Bilirubin 1.2 mg/dL (0.3-1.0) H 07/27/17 06:27 B-Natriuretic Peptide 1185 pg/mL (Less than 100) H 07/20/17 11:34 Serum Total Protein 5.1 g/dL (6.4-8.9) L 07/27/17 06:27 Albumin 2.6 g/dL (3.5-5.7) L 07/27/17 06:27 Albumin/Globulin Ratio 1.0 (1.1-2.2) L 07/27/17 06:27 Vancomycin Trough 9.6 mcg/mL (10-20) L 07/22/17 01:56 - Clinical Findings Intake & Output: Intake & Output 07/26/17 07/27/17 07/27/17 23:59 07:59 15:59 Intake Total 290 / 290 60 / 60 350 / 350 Output Total 300 / 300 Balance 290 / 290 60 / 60 50 / 50 Weight 59.3 kg - Attending Attestation I examined this patient and my medical decision-making was reviewed with the Resident Physician. I agree with the documented findings, disposition and treatment plan as described except to the extent set forth below. Patient seen and examined. Labs, radiology, chart personally reviewed. Agree with resident's history and physical, assessment, plan with following comments: LOTTERIES AGENT: Patient follows commands, Pulmonary: Acceptable oxygenation and ventilation Cardiovascular: stable. Patient with atrial fibrillation and her medication to be reviewed. Patient was placed on on aspirin by her shaft sinker. GI: Nutrition per dietary and GI prophylaxis per routine. Patient will need to see GI Heme: DVT prophylaxis per routine ID: Continue antibiotics and plan to de-escalation Renal; urine out put and renal funtion reviewed Endorcine: blood glucose is monitored Lines: all lines checked and no evidence of infections Skin: skin care to prevent pressure ulcers per nursing routine care. Patient has stage II decubitus ulcer which was present on admission and this is on coccyx area 0.5 x 0.5 cm. Patient stated she was provided in the care home. Patient is awaiting for transfer.
[2017-07-27 08:44] LABS: Anisocytosis 2+ (Not Present); Platelet Estimate Normal (Normal); Poikilocytosis 2+ (Not Present)
[2017-07-27] MEDS ORDERED: TARCEVA PO SCH (09:00)
[2017-07-27] MEDS ORDERED: Furosemide 20 MG/2 ML VIAL IVP SCH (09:00)
[2017-07-27] MEDS ORDERED: predniSONE 20 MG TABLET PO SCH (09:00)
[2017-07-27 09:10] LABS: Alanine Aminotransferase 20 Units/L (7-52); Albumin 2.6 g/dL (3.5-5.7); Alkaline Phosphatase 62 Units/L (34-104); Aspartate Amino Transferase 27 Units/L (13-39); BUN/Creatinine Ratio 34 (6-26); Bilirubin,Total 1.2 mg/dL (0.3-1.0); Blood Urea Nitrogen 24 mg/dL (8-23); Calcium 8.8 mg/dL (8.6-10.3); Carbon Dioxide 38 mEq/L (23-29); Chloride 93 mEq/L (98-107); Globulin 2.5 g/dL (2.4-3.5); Glucose 79 mg/dL (70-105); Osmolality,Calculated 295 (280-300); Potassium 3.7 mEq/L (3.5-5.1); Sodium 141 mEq/L (136-145); Total Protein 5.1 g/dL (6.4-8.9); eGFR For African Americans > 60 (> 60); eGFR For Non-African Americans > 60 (> 60)
--- NOTE | 2017-07-27 12:01 | Gastroenterology Consult Note ---
<Paulette Roberts - Last Filed: 07/27/17 11:59> Date of Encounter: 07/27/17 Time of Encounter: 12:00 - Assessment and plan (1) Dysphagia Current Visit: No Status: Acute Assessment and plan: Pt has history of dysphagia, radiation esophagitis, and esophageal ulcers. She is off plavix. Will proceed with EGD and possible dilation tomorrow. Continue PPI. Qualifiers: Qualified Code(s): R13.10 - Dysphagia, unspecified - Time Spent With Patient Total time spent is greater than 50% in coordination of care (as documented) at patient's floor/unit and/or counseling patient: GI History of Present Illness - Data of Consult Patient: known to practice within the last 3 years Consult date: 07/27/17 Requesting Physician: Azam Lofton MD - Consult Narrative Reason for consult: dysphagia History of present illness: Ms. Wong is a 72 year old female who has a pmhx of atrial fibrillation, cancer , COPD, GERD, myocardial infarction, and seizures. She presented with acute on chronic respiratory failure. She has a history of lung cancer, is status post right lower lobectomy and XRT. She is currently on Tarceva. She complains of longstanding dysphagia and odynophagia. She was seen as outpatient 06/27 but she was on plavix at that time due to CAD and EGD with dilation was deferred until 10/27 as last coronary stenting was done 10/26. Acording to cardiology progress notes on last admission, plavix was stopped due to brain mets and anemia. She is on baby asa at home. She states every thing she eats gets stuck in her throat. She had EGD with Dr Stubbs 05/28 which showed esophageal ulcer and esophagitis and was recommended repeat EGD in 6 weeks. She has been on carafate and protonix at home. She denies any abdominal pain, nausea, vomiting, diarrhea , constipation, bloody or tarry stools. EGD: 05/28 Enoc, esophageal ulcer and esophagitis Colonoscopy: 06/25 Jet diverticulosis, repeat in 5 years NSAIDS: asa Anticoagulants: none Past Med Surg Social Fam HX - Past Medical History Medical history: atrial fibrillation, cancer, COPD, GERD, myocardial infarction , seizures Psychiatric history: anxiety, depression - Past Surgical History Surgical History: angioplasty/stent, cancer surgery, cholecystectomy - Social History Smoking Status: Former smoker Smokeless Tobacco Status: No Alcohol use: none Drug use: none - Family History Mother Hx Family Cardiac Disorders: Yes Father Hx Family Cardiac Disorders: Yes Review of Systems: GI: as per [facility] GENERAL: denies fever, or chills EYES: denies yellow discoloration ENT: pain with swallowing and difficulty swallowing CARDIO: denies chest pain, palpitations RESP: Shortness of breath with exertion : denies change in color of urine NEURO: weakness HEME: Denies any bruising MS: chronic joint and back pain. DERM: denies rash or itching PSYCH: Denies history of anxiety or depression - Constitutional Vitals: Temp Pulse Resp BP Pulse Ox 97.5 F L 63 16 144/84 96 07/27/17 11:39 07/27/17 11:00 07/27/17 10:36 07/27/17 07:00 07/27/17 10:36 Exam: CONSTITUTIONAL:~alert, no acute distress.~HEAD:~normocephalic.~EYES:~no jaundice.~NECK:~no obvious swelling.~HEART:~regular rate and rhythm, no murmurs. ~LUNGS:~bilateral fair air entry. CHEST: scar RLL~ABDOMEN:~non distended, soft, non tender, no masses palpable, no organomegaly, midline abdominal scar well healed.~RECTAL EXAM:~Deferred.~EXTREMITIES:~no clubbing, cyanosis, trace BLE edema.~SKIN:~pallor noted, no stigmata of chronic liver disease.~NEUROLOGIC:~no obvious focal defect.~~~~ Results - Labs CBC & Chem 7: 07/27/17 06:27 07/27/17 06:27 Labs: Last Result Calcium 8.8 mg/dL (8.6-10.3) 07/27/17 06:27 Troponin I < 0.03 ng/mL (< 0.04) 07/20/17 11:34 Entire Visit Hgb 11.4 g/dL (11.5-15.4) L 07/27/17 06:27 Hct 38.2 % (35.3-44.9) 07/27/17 06:27 PT 14.0 Seconds (9.4-12.1) H 01/09/18 11:34 Total Bilirubin 1.2 mg/dL (0.3-1.0) H 07/27/17 06:27 AST 27 Units/L (13-39) 07/27/17 06:27 ALT 20 Units/L (7-52) 07/27/17 06:27 - ABG ABG results: ABG ABG pH 7.46 pH Units (7.32-7.45) H D 07/20/17 14:34 ABG pCO2 56 mmHg (35-45) H D 07/20/17 14:34 ABG pO2 47 mmHg (85-104) L* D 07/20/17 14:34 ABG O2 Saturation 84 % (95-98) L 07/20/17 14:34 PT/INR, D-dimer PT 14.0 Seconds (9.4-12.1) H 07/20/17 11:34 Consult Discharge Plan - Plan Referrals: Senait Wong, PIANO TECHNICIAN [Primary Care Provider] - (Patient will follow up with PCP at [facility]) <Elier Farah - Last Filed: 07/28/17 13:50> Date of Encounter: 07/27/17 - Time Spent With Patient Total time spent is greater than 50% in coordination of care (as documented) at patient's floor/unit and/or counseling patient: GI History of Present Illness - Data of Consult Requesting Physician: Iain Wheatley - Consult Narrative History of present illness: Ms. Wong is a 72 year old female - Constitutional Vitals: Temp Pulse Resp BP Pulse Ox 96.4 F L 98 20 121/86 98 07/28/17 13:25 07/28/17 13:25 07/28/17 13:25 07/28/17 13:25 07/28/17 13:25 Results - Labs CBC & Chem 7: 07/27/17 06:27 07/27/17 06:27 Labs: Last Result Calcium 8.8 mg/dL (8.6-10.3) 07/27/17 06:27 Troponin I < 0.03 ng/mL (< 0.04) 07/20/17 11:34 Entire Visit Hgb 11.4 g/dL (11.5-15.4) L 07/27/17 06:27 Hct 38.2 % (35.3-44.9) 07/27/17 06:27 PT 14.0 Seconds (9.4-12.1) H 07/20/17 11:34 Total Bilirubin 1.2 mg/dL (0.3-1.0) H 07/27/17 06:27 AST 27 Units/L (13-39) 07/27/17 06:27 ALT 20 Units/L (7-52) 07/27/17 06:27 - ABG ABG results: ABG ABG pH 7.46 pH Units (7.32-7.45) H D 07/20/17 14:34 ABG pCO2 56 mmHg (35-45) H D 07/20/17 14:34 ABG pO2 47 mmHg (85-104) L* D 07/20/17 14:34 ABG O2 Saturation 84 % (95-98) L 07/20/17 14:34 PT/INR, D-dimer PT 14.0 Seconds (9.4-12.1) H 07/20/17 11:34 - Attending Attestation I have personally performed a face to face evaluation on this patient. I have reviewed and agree with the care plan. History and Exam by me shows:Agree with getting CT chest first given the possible crepitus. Plan EGD in the morning tomorrow once the dust settles on the issue of chest pain and syncope
[2017-07-27] MEDS ORDERED: Ipratropium/Albuterol Neb 3 ML IH PRN (13:07)
[2017-07-28] MEDS: Famotidine 20 MG TABLET PO SCH ×2 (05:39→16:47)
[2017-07-28] MEDS: Artificial Tears SOLN 15 ML BOTTLE BOTH EYES SCH ×3 (09:01→16:51)
[2017-07-28] MEDS: predniSONE 20 MG TABLET PO SCH (09:01)
[2017-07-28] MEDS: Furosemide 20 MG TABLET PO SCH (09:02)
[2017-07-28] MEDS: Insulin LISPRO 300 UNITS/3 ML VIAL SQ SCH ×2 (09:02→11:28)
[2017-07-28] MEDS: levoFLOXacin 750 MG TABLET PO SCH (09:03)
[2017-07-28] MEDS: ERLOTINIB 100 MG PO SCH (09:03)
--- NOTE | 2017-07-28 13:20 | Anesthesia Evaluation PreOp ---
Date of Encounter: 07/28/17 Time of Encounter: 13:18 - Past History Planned Operation: EGD/Colonoscopy Cardiac History: PR, CHF, HTN, Arrhythmia (AFib) Pulmonary History: Former smoker, COPD, Other (Acute on Chronic Resp Failure, small Left pleural effusion, Lung CA, Recent pneumonia) [employer] History: Seizures Other Medical History: GERD Anesthesia History: No Prior Anesthetic Complications, Past Anesthesia ( Angioplasty, GB, Right Lung lower lobectomy) : No Alcohol Use: none Drug use: none Medications and Allergies Albuterol Neb [Proventil Neb] 2.5 mg IH Q4HR 05/21/15 [History] Calcium Carbonate [Tums] 500 mg PO DAILY 05/21/15 [History] Docusate [Colace] 100 mg PO BID 05/21/15 [History] Oxygen 2 l NS AD 10/28/16 [History] Clopidogrel [Plavix] 75 mg PO DAILY #30 tablet 01/13/17 [Rx] Ranitidine HCl [Zantac] 150 mg PO BID #180 tablet 02/10/17 [Rx] Erlotinib HCl [Tarceva] 100 mg PO DAILY 30 Days tablet 02/26/17 [Rx] Atorvastatin [Lipitor] 40 mg PO HS 03/19/17 [History] Folic Acid 1 mg PO DAILY #90 tablet 05/06/17 [Rx] Pantoprazole Sodium [Protonix] 40 mg PO DAILY 05/11/17 [History] Ferrous Sulfate 325 mg PO BID #60 tablet 05/15/17 [Rx] Sucralfate [Carafate] 1 gm PO BID 06/22/17 [History] Diltiazem [Cardizem] 30 mg PO Q6HR tablet 06/23/17 [Rx] Furosemide [Lasix] 20 mg PO DAILY tablet 06/23/17 [Rx] Gabapentin [Neurontin] 600 tab PO BID #20 capsule 06/23/17 [Rx] GuaiFENesin/Dextromethorphan [Mucinex Dm] 1 each PO BID tab.er.12h 06/23/17 [Rx ] HYDROcodone/Acet 5/325 mg [[place] 5-325 mg] 1 tab PO TID PRN #15 tab 06/23/17 [Rx ] Metoprolol [Lopressor] 12.5 mg PO BID tablet 06/23/17 [Rx] Aspirin 81 mg PO DAILY 07/20/17 [History] Nystatin POWDER [Nystop] 1 appl TP AD 07/20/17 [History] 3 Allergy/AdvReac Type Severity Reaction Status Date / Time No Known Allergies Allergy Verified 03/19/17 09:01 - Meds/Allergy Pre-op Review Medications Reviewed: Yes Allergies Reviewed: Yes Beta Blockers on Current Med List: Yes If Beta Blockers taken, Date/Time (Last Dose taken): 09:02 07/28/17 Anesthesia Results - Labs 07/27/17 06:27 07/27/17 06:27 Echocardiogram Name: Clara Wong Date of Study: 05/12/2017 Impressions: Technically challenging due to COPD. Most images were obtained from the subcostal view. Overall, LV systolic function appears normal, LVEF 60%. Not all wall segments were well visualized. Indeterminate diastolic function. Normal right ventricular size with low normal function. Mild tricuspid regurgitation. Borderline pulmonary hypertension. There is a small to moderate pericardial effusion present without evidence for tamponade. - Imaging EKG: report reviewed (ATRIAL FIBRILLATION WITH RAPID VENTRICULAR RESPONSE, current rate 99) Anesthesia Exam Vital Signs/O2 Sat, Most Current Temp Pulse Resp BP Pulse Ox 97.7 F 99 22 121/78 100 07/28/17 12:19 07/28/17 12:19 07/28/17 12:19 07/28/17 12:19 07/28/17 07:32 - HEENT Pupil (Motor): Pupils equal, EOMI Mallampati: II Teeth: Edentulous Oral Opening: Greater than 3 - [employer] LOC: Oriented [employer] Motor: Normal RUE, Normal LUE, Normal RLE, Normal LLE, Normal Face [employer] Sensory: Normal: RUE, LUE, RLE, LLE, Face - Cardiac Rhythm: Regular Murmur: None JVD: No Carotid Bruit: No - Pulmonary Breath Sounds: bilateral Clear Respiratory Effort: Symmetrical Anesthesia Assess/Plan ASA Score: 4 Modified Bruning Scale for Level of Consciousness: Cooperative, oriented, and tranquil Anesthetic Plan: MAC Autologous Blood: Yes Monitoring Plan: Standard Monitors Recovery Plan: Other
--- NOTE | 2017-07-28 13:43 | Internal Med History&Physical ---
Date of Encounter: 07/28/17 Time of Encounter: 13:40 Assessment and Plan (1) Acute and chronic respiratory failure with hypoxia Current visit: No Status: Acute Multifactorial with pneumonia as well as acute exacerbation of diastolic heart failure. We will continue to treat underlying cause. She is improving. Wean down oxygen as tolerated. Continue with nebulized treatment. (2) Pneumonia Current visit: No Status: Acute Continue Levaquin. Plan to do 10-14 days total. Qualifiers: Pneumonia type: due to unspecified organism Laterality: unspecified laterality Lung location: unspecified part of lung Qualified Code(s): J18.9 - Pneumonia, unspecified organism (3) Acute on chronic diastolic heart failure Current visit: No Status: Acute Continue with Lasix. Has been switched to oral. Continue 20 mg daily. Continue with beta melina. (4) Atrial fibrillation Current visit: No Status: Chronic Rate is better controlled. Continue with Lopressor 12.5 mg twice a day. She has Cardizem ordered when necessary. I will make that scheduled. She is on 30 mg every 6 hours. No anticoagulation secondary to history of bleed. Qualifiers: Atrial fibrillation type: paroxysmal Qualified Code(s): I48.0 - Paroxysmal atrial fibrillation (5) Pleural effusion on left Current visit: No Status: Acute Continue with diuresis. (6) COPD with exacerbation Current visit: No Status: Acute Continue with prednisone oral 40 mg today. Plan on a taper at discharge. Continue with nebulizer treatments. O2 as needed. She is on chronic 2-3 L at home. (7) Dysphagia Current visit: No Status: Acute GI is following. Plan on EGD with dilation. We will follow-up with GIs recommendations. Qualifiers: Dysphagia type: unspecified Qualified Code(s): R13.10 - Dysphagia, unspecified (8) DVT prophylaxis Current visit: No Status: Acute SCDs. Internal Medicine - H&P: HPI Chief complaint: Assumed care from ICU Admitted From: Home Plans for Post Hospital Care: Home History of present illness: Ms. Wong is a 72 year old female past medical history of lung cancer with right lobectomy COPD with oxygen use at night CAD with 5 stents paroxysmal A. fib and diastolic heart failure who was admitted to the ICU on 07/20 with acute on chronic respiratory failure. She has been treated for acute exacerbation of diastolic heart failure, pneumonia, and A. fib with RVR. She has been under the speech pathologist assistant service never needed intubation. She needed BiPAP on and off. She was weaned off BiPAP. She is currently on 3 L of nasal cannula oxygen. She has been maintained on IV steroids and switched to oral steroids over the last day or so. She had Lopressor started for A. fib with RVR. She has been restarted on her Cardizem as well. She did need amiodarone drip at some point while she was in ICU. She is off that now. Stress out of the ICU yesterday she has been hemodynamically stable. She denies any fever chills nausea vomiting chest pain abdominal pain or symptoms neurological symptoms. She is being evaluated by GI for dysphagia for which she was scheduled to have a dilation via EGD. Past Med Surg Social Fam HX - Past Medical History Medical history: atrial fibrillation, cancer, COPD, GERD, myocardial infarction , seizures Psychiatric history: anxiety, depression - Past Surgical History Surgical History: angioplasty/stent, cancer surgery, cholecystectomy - Social History Smoking Status: Former smoker Smokeless Tobacco Status: No Alcohol use: none Drug use: none - Family History Mother Hx Family Cardiac Disorders: Yes Father Hx Family Cardiac Disorders: Yes Internal Medicine - H&P: Meds Albuterol Neb [Proventil Neb] 2.5 mg IH Q4HR 05/21/15 [History] Calcium Carbonate [Tums] 500 mg PO DAILY 05/21/15 [History] Docusate [Colace] 100 mg PO BID 05/21/15 [History] Oxygen 2 l NS AD 10/28/16 [History] Clopidogrel [Plavix] 75 mg PO DAILY #30 tablet 01/13/17 [Rx] Ranitidine HCl [Zantac] 150 mg PO BID #180 tablet 02/10/17 [Rx] Erlotinib HCl [Tarceva] 100 mg PO DAILY 30 Days tablet 02/26/17 [Rx] Atorvastatin [Lipitor] 40 mg PO HS 03/19/17 [History] Folic Acid 1 mg PO DAILY #90 tablet 05/06/17 [Rx] Pantoprazole Sodium [Protonix] 40 mg PO DAILY 05/11/17 [History] Ferrous Sulfate 325 mg PO BID #60 tablet 05/15/17 [Rx] Sucralfate [Carafate] 1 gm PO BID 06/22/17 [History] Diltiazem [Cardizem] 30 mg PO Q6HR tablet 06/23/17 [Rx] Furosemide [Lasix] 20 mg PO DAILY tablet 06/23/17 [Rx] Gabapentin [Neurontin] 600 tab PO BID #20 capsule 06/23/17 [Rx] GuaiFENesin/Dextromethorphan [Mucinex Dm] 1 each PO BID tab.er.12h 06/23/17 [Rx ] HYDROcodone/Acet 5/325 mg [[place] 5-325 mg] 1 tab PO TID PRN #15 tab 06/23/17 [Rx ] Metoprolol [Lopressor] 12.5 mg PO BID tablet 06/23/17 [Rx] Aspirin 81 mg PO DAILY 07/20/17 [History] Nystatin POWDER [Nystop] 1 appl TP AD 07/20/17 [History] 3 Allergy/AdvReac Type Severity Reaction Status Date / Time No Known Allergies Allergy Verified 03/19/17 09:01 All Systems PM: A 10-system review of systems was performed and is negative for pertinent findings except as documented above in the HPI. Review of systems: All systems reviewed are negative except for as mentioned above - Constitutional Vitals: Temp Pulse Resp BP Pulse Ox 97.7 F 99 22 121/78 100 07/28/17 12:19 07/28/17 12:19 07/28/17 12:19 07/28/17 12:19 07/28/17 07:32 Exam: GEN: NAD HEENT: AT, NC, No cyanosis, oral mucosa is moist, No JVD Lymphatics: No lymphadenoapthy Eyes: Extrocular muscles intact, anicteric CVS:RRR. S1, S2, No m/r/g RESP: CTAB ABD: Soft, NT, ND, +BS EXT: No edema, No rashes, 2+ DP NEURO: Nonfocal, CN II-XII intact, No focal motor or sensory deficits Psych: Cooperative, Not anxious or depressedl Internal Med - H&P Results - Labs CBC & Chem 7: 07/27/17 06:27 07/27/17 06:27 - VTE Documentation of Mechanical Device: Intermittent pneumatic compression device
[2017-07-28] MEDS ORDERED: 0.9 % Sodium Chloride 1,000 ML IVC SCH (13:45)
[2017-07-28] MEDS ORDERED: *HR* Propofol 200 MG/20 ML VIAL IVP ONE (14:19)
[2017-07-28] MEDS: Fluconazole 100 MG TABLET PO SCH (16:48)
[2017-07-29] MEDS: Artificial Tears SOLN 15 ML BOTTLE BOTH EYES SCH ×2 (00:20→08:18)
[2017-07-29 05:25] LABS: Basophils % 0.1 %
[2017-07-29 05:27] LABS: Eosinophils % 0.1 %; Hematocrit 35.8 % (35.3-44.9); Immature Granulocytes % 0.3 % (0-4); Immature Platelets 5.9 % (1.1-6.1); Lymphocytes # 0.9 K/mcL (0.6-4.6); Lymphocytes % 9.4 %; Mean Corpuscular HGB Conc 30.7 g/dL (31.6-35.5); Mean Corpuscular Hemoglobin 24.4 pg (28.0-33.3); Mean Corpuscular Volume 79.4 fL (83.0-100.0); Mean Platelet Volume 10.4 fL (9.4-12.4); Monocytes # 1.1 K/mcL (0.0-1.3); Monocytes % 11.1 %; Neutrophils # 7.9 K/mcL (1.6-8.9); Platelet Count 133 K/mcL (140-400); Red Blood Count 4.51 M/mcL (3.82-4.97); Red Cell Distribution Width 27.6 % (11.5-14.5)
[2017-07-29 05:35] LABS: BUN/Creatinine Ratio 36 (6-26); Blood Urea Nitrogen 22 mg/dL (8-23); Calcium 8.2 mg/dL (8.6-10.3); Carbon Dioxide 36 mEq/L (23-29); Chloride 99 mEq/L (98-107); Glucose 116 mg/dL (70-105); Osmolality,Calculated 290 (280-300); Potassium 3.6 mEq/L (3.5-5.1); Sodium 138 mEq/L (136-145); eGFR For African Americans > 60 (> 60); eGFR For Non-African Americans > 60 (> 60)
[2017-07-29 06:00] LABS: Anisocytosis 3+ (Not Present); Microcytosis Present (Not Present); Platelet Estimate Normal (Normal); Poikilocytosis 3+ (Not Present); Schistocytes 2+ (Not Present)
[2017-07-29 06:01] LABS: Target Cells 2+ (Not Present)
[2017-07-29] MEDS: Famotidine 20 MG TABLET PO SCH (06:20)
--- NOTE | 2017-07-29 08:00 | Discharge Summary ---
Date of Encounter: 07/29/17 Time of Encounter: 07:57 - Discharge Diagnosis (1) Acute and chronic respiratory failure with hypoxia Priority: Primary Status: Acute (2) Pneumonia Priority: Primary Status: Acute Qualifiers: Pneumonia type: due to unspecified organism Laterality: unspecified laterality Lung location: unspecified part of lung Qualified Code(s): J18.9 - Pneumonia, unspecified organism (3) Acute on chronic diastolic heart failure Priority: Primary Status: Acute (4) Atrial fibrillation Priority: Primary Status: Chronic Qualifiers: Atrial fibrillation type: paroxysmal Qualified Code(s): I48.0 - Paroxysmal atrial fibrillation (5) Pleural effusion on left Priority: Secondary Status: Acute (6) COPD with exacerbation Priority: Primary Status: Acute (7) Dysphagia Priority: Primary Status: Acute Qualifiers: Dysphagia type: unspecified Qualified Code(s): R13.10 - Dysphagia, unspecified (8) Pressure ulcer of coccygeal region, stage 2 Priority: Secondary Status: Chronic - Discharge Medications Prescriptions: Diltiazem [Cardizem] 30 mg PO Q6HR #60 tablet Fluconazole [Diflucan] 100 mg PO DAILY #19 tablet levoFLOXacin [Levaquin] 750 mg PO DAILY #7 tablet predniSONE [PredniSONE] 40 mg PO TAPER #30 tablet Sucralfate [Carafate] 1 gm PO QID #30 oral.susp Home Medications: Albuterol Neb [Proventil Neb] 2.5 mg IH Q4HR 05/21/15 [History] Calcium Carbonate [Tums] 500 mg PO DAILY 05/21/15 [History] Docusate [Colace] 100 mg PO BID 05/21/15 [History] Oxygen 2 l NS AD 10/28/16 [History] Clopidogrel [Plavix] 75 mg PO DAILY #30 tablet 01/13/17 [Rx] Ranitidine HCl [Zantac] 150 mg PO BID #180 tablet 02/10/17 [Rx] Erlotinib HCl [Tarceva] 100 mg PO DAILY 30 Days tablet 02/26/17 [Rx] Atorvastatin [Lipitor] 40 mg PO HS 03/19/17 [History] Folic Acid 1 mg PO DAILY #90 tablet 05/06/17 [Rx] Pantoprazole Sodium [Protonix] 40 mg PO DAILY 05/11/17 [History] Ferrous Sulfate 325 mg PO BID #60 tablet 05/15/17 [Rx] Diltiazem [Cardizem] 30 mg PO Q6HR tablet 06/23/17 [Rx] Furosemide [Lasix] 20 mg PO DAILY tablet 06/23/17 [Rx] Gabapentin [Neurontin] 600 tab PO BID #20 capsule 06/23/17 [Rx] GuaiFENesin/Dextromethorphan [Mucinex Dm] 1 each PO BID tab.er.12h 06/23/17 [Rx ] HYDROcodone/Acet 5/325 mg [[place] 5-325 mg] 1 tab PO TID PRN #15 tab 06/23/17 [Rx ] Metoprolol [Lopressor] 12.5 mg PO BID tablet 06/23/17 [Rx] Aspirin 81 mg PO DAILY 07/20/17 [History] Nystatin POWDER [Nystop] 1 appl TP AD 07/20/17 [History] Diltiazem [Cardizem] 30 mg PO Q6HR #60 tablet 07/29/17 [Rx] Fluconazole [Diflucan] 100 mg PO DAILY #19 tablet 07/29/17 [Rx] Sucralfate [Carafate] 1 gm PO QID #30 oral.susp 07/29/17 [Rx] levoFLOXacin [Levaquin] 750 mg PO DAILY #7 tablet 07/29/17 [Rx] predniSONE [PredniSONE] 40 mg PO TAPER #30 tablet 07/29/17 [Rx] Allergies/Adverse Reactions: 3 Allergy/AdvReac Type Severity Reaction Status Date / Time No Known Allergies Allergy Verified 03/19/17 09:01 Date of admission: 07/20/17 15:22 Primary care physician: Senait Wong CNP Consults: 07/26/17 10:16 Consult to Gastroenterology [CONS] Routine Consulting Provider: [facility] Reason for Consult: EGD dilation for esophageal stricture Call Completed: Yes 07/28/17 13:51 Consult to Diesel Power Mechanic [CONS] Routine Reason for SW Consult: [facility] 07/28/17 15:22 Consult to Speech Therapy [CONS] Routine Comment: Evaluate, develop and implement POC Reason for Consult: dysphagia, previously on caseload. Call Completed: No - Patient Status Disposition: Home, Self-Care Overall status at discharge: patient is progressing back to baseline - Discharge Instructions Instructions: Esophageal Stricture (DC), Chronic Dysphagia (DC) Follow Up With: Senait Wong CNP [Primary Care Provider] - 08/06/17 3:00 pm () Mary Stubbs MD [Partnered Physician] - (Electronic request sent. Office will call you.) - Diet and Activity Activity: increase activity as tolerated, wear oxygen at all times Diet: other (pureed) Hospital course: Ms. Wong is a 72 year old female with past medical history of lung cancer with right lobectomy COPD with oxygen use at night CAD with 5 stents paroxysmal A. fib and diastolic heart failure who was admitted to the ICU on 07/20 with acute on chronic respiratory failure. She has been treated for acute exacerbation of diastolic heart failure, pneumonia, and A. fib with RVR. She has been under the toe closing machine tender service and never needed intubation. She needed BiPAP on and off. She was weaned off BiPAP and weaned down to her home O2 needs of 3-4 L. She has been maintained on IV steroids and switched to oral steroids and discharged on a taper eventually. She had Lopressor started for A. fib with RVR. She has been restarted on her Cardizem as well. She did need amiodarone drip at some point while she was in ICU but none since. Transferred out of ICU 07/27/2017 as she has been hemodynamically stable. She was seen by GI for dysphagia and had an EGD showing severe erosive ulcerative esophagitis that was biopsied. She had oral thrush. She was started on Diflucan and Carafate as well as PPI. She is to follow up with GI. She has been discharged on Levaquin to finish treatment for pneumonia. She has been discharged on Diflucan for 19 more days she had 2 days of her period has been discharged on a prednisone taper. She has been discharged on Carafate and PPI and Cardizem. She is to follow-up with her primary care physician as well as GI. - Time Spent with Patient Total time spent providing and/or coordinating discharge services: Greater than 30 minutes - Constitutional Vitals: Temp Pulse Resp BP Pulse Ox 97.7 F 52 15 136/69 94 07/29/17 04:52 07/29/17 04:52 07/29/17 04:52 07/29/17 04:52 07/29/17 04:52 Exam: GEN: NAD HEENT: AT, NC, No cyanosis, oral mucosa is moist, No JVD Lymphatics: No lymphadenoapthy Eyes: Extrocular muscles intact, anicteric CVS:RRR. S1, S2, No m/r/g RESP: CTAB ABD: Soft, NT, ND, +BS EXT: No edema, No rashes, 2+ DP NEURO: Nonfocal, CN II-XII intact, No focal motor or sensory deficits - VTE Documentation of Mechanical Device: Intermittent pneumatic compression device
[2017-07-29] MEDS: Furosemide 20 MG TABLET PO SCH (08:16)
[2017-07-29] MEDS: levoFLOXacin 750 MG TABLET PO SCH (08:17)
[2017-07-29] MEDS: predniSONE 20 MG TABLET PO SCH (08:17)
[2017-07-29] MEDS: Fluconazole 100 MG TABLET PO SCH (08:17)
[2017-07-29] MEDS: ERLOTINIB 100 MG PO SCH (08:17)
[2017-07-29 08:30] VITALS: BP 131/83
[2017-07-29] MEDS ORDERED: Nystatin SUSP 5 ML UD.LIQ PO SCH (09:00)
--- NOTE | 2017-07-29 11:23 | Physician Discharge Referral ---
- Diagnosis (1) Acute and chronic respiratory failure with hypoxia Priority: Primary Status: Acute (2) Pneumonia Priority: Primary Status: Acute (3) Acute on chronic diastolic heart failure Priority: Primary Status: Acute (4) Atrial fibrillation Priority: Secondary Status: Chronic (5) Pleural effusion on left Priority: Primary Status: Acute (6) COPD with exacerbation Priority: Primary Status: Acute (7) Dysphagia Priority: Primary Status: Acute - Respiratory Orders Smoking Cessation: Smoking cessation has been advised. For more information, call the [place] Tobacco Quit Line at 7-941-SAWJ-NOW. - Services Needed Following services are medically necessary services: Home Health Aide - Transfer Medications Prescriptions: Diltiazem [Cardizem] 30 mg PO Q6HR #60 tablet Fluconazole [Diflucan] 100 mg PO DAILY #19 tablet levoFLOXacin [Levaquin] 750 mg PO DAILY #7 tablet predniSONE [PredniSONE] 40 mg PO TAPER #30 tablet Sucralfate [Carafate] 1 gm PO QID #30 oral.susp Home Medications: Albuterol Neb [Proventil Neb] 2.5 mg IH Q4HR 05/21/15 [History] Calcium Carbonate [Tums] 500 mg PO DAILY 05/21/15 [History] Docusate [Colace] 100 mg PO BID 05/21/15 [History] Oxygen 2 l NS AD 10/28/16 [History] Clopidogrel [Plavix] 75 mg PO DAILY #30 tablet 01/13/17 [Rx] Ranitidine HCl [Zantac] 150 mg PO BID #180 tablet 02/10/17 [Rx] Erlotinib HCl [Tarceva] 100 mg PO DAILY 30 Days tablet 02/26/17 [Rx] Atorvastatin [Lipitor] 40 mg PO HS 03/19/17 [History] Folic Acid 1 mg PO DAILY #90 tablet 05/06/17 [Rx] Pantoprazole Sodium [Protonix] 40 mg PO DAILY 05/11/17 [History] Ferrous Sulfate 325 mg PO BID #60 tablet 05/15/17 [Rx] Diltiazem [Cardizem] 30 mg PO Q6HR tablet 06/23/17 [Rx] Furosemide [Lasix] 20 mg PO DAILY tablet 06/23/17 [Rx] Gabapentin [Neurontin] 600 tab PO BID #20 capsule 06/23/17 [Rx] GuaiFENesin/Dextromethorphan [Mucinex Dm] 1 each PO BID tab.er.12h 06/23/17 [Rx ] HYDROcodone/Acet 5/325 mg [[place] 5-325 mg] 1 tab PO TID PRN #15 tab 06/23/17 [Rx ] Metoprolol [Lopressor] 12.5 mg PO BID tablet 06/23/17 [Rx] Aspirin 81 mg PO DAILY 07/20/17 [History] Nystatin POWDER [Nystop] 1 appl TP AD 07/20/17 [History] Diltiazem [Cardizem] 30 mg PO Q6HR #60 tablet 07/29/17 [Rx] Fluconazole [Diflucan] 100 mg PO DAILY #19 tablet 07/29/17 [Rx] Sucralfate [Carafate] 1 gm PO QID #30 oral.susp 07/29/17 [Rx] levoFLOXacin [Levaquin] 750 mg PO DAILY #7 tablet 07/29/17 [Rx] predniSONE [PredniSONE] 40 mg PO TAPER #30 tablet 07/29/17 [Rx] Allergies/Adverse Reactions: 3 Allergy/AdvReac Type Severity Reaction Status Date / Time No Known Allergies Allergy Verified 03/19/17 09:01 Certification: Further, I certify that my clinical findings support that this patient is homebound (i.e. absences from home require considerable and taxing effort and are for medical reasons or [employer] services or infrequently or short duration when for other reasons) because: Homebound Reason: Patient requires assistance of a person or device to safely leave home Attestation: My signature below is to certify that this patient is under my care and that I, or nurse practitioner, or a physician's materials assistant working with me, has a face-to -face encounter with this patient.
== END 2017-07-29 11:30 | disposition home or self-care (01) | DRG 177 ==
LOC: EMEROO 10:53 → ICNU 15:22 → 2ANU 07-27 18:58
PROVIDERS: ADMIT Internal Medicine Pulmonary Disease; ATTEND Internal Medicine
PROC: ENDOEBX (2017-07-28 13:00)

== ENCOUNTER 2017-08-19 11:58 | Inpatient (IN) ==
[2017-08-19] MEDS ORDERED: 0.9 % Sodium Chloride 1,000 ML IVC ONE (12:05)
--- NOTE | 2017-08-19 12:11 | Emergency Department Note ---
Disposition Clinical Impression: Atrial fibrillation with RVR, Pleural effusion on right, HCAP (healthcare- associated pneumonia), Hypoxia SCLC (small cell lung carcinoma) Qualifiers: Laterality: unspecified laterality Qualified Code(s): C34.90 - Malignant neoplasm of unspecified part of unspecified bronchus or lung Disposition: Admitted As Inpatient Condition: Serious Time of Disposition: 15:40 SOB HPI - General Chief Complaint: ED Shortness of Breath/Dyspnea Stated Complaint: Shortness of Breath Time Seen by Provider: 08/19/17 12:03 Source: EMS Nursing Notes Reviewed: Yes Vital Signs Reviewed: Yes - History of Present Illness 72-year-old female complains of acute onset of severe shortness of breath after waking up this morning. Patient called her PCP Senait Wong CNP who directed her to come see her immediately. Patient was found to be hypoxic with O2 sat in the 70s and brought to the emergency department by EMS. EMS states they were able to get her O2 sat up to 86% with nasal cannula and a nonrebreather. Patient has a history of small cell lung cancer and is under care with Dr. Valadez of oncology. Patient takes oral chemotherapy with the last dose one day ago. Patient states she is a full code - Related Data Home Medications Medication Instructions Recorded Confirmed Albuterol Neb [Proventil Neb] 2.5 mg IH Q4HR 05/21/15 08/19/17 Calcium Carbonate [Tums] 500 mg PO DAILY 05/21/15 08/19/17 Docusate [Colace] 100 mg PO BID 05/21/15 08/19/17 Oxygen 2 l NS AD 10/28/16 08/19/17 Atorvastatin [Lipitor] 40 mg PO HS 03/19/17 08/19/17 Pantoprazole Sodium [Protonix] 40 mg PO DAILY 05/11/17 08/19/17 Aspirin 81 mg PO DAILY 07/20/17 08/19/17 Gabapentin [Neurontin] 600 mg PO BID 08/19/17 08/19/17 Loratadine [Allergy Relief] 10 mg PO DAILY 08/19/17 08/19/17 Metoprolol XL (24 HR) Succ [Toprol 50 mg PO DAILY 08/19/17 XL] Previous Rx's Medication Instructions Recorded Clopidogrel [Plavix] 75 mg PO DAILY #30 tablet 01/13/17 Ranitidine HCl [Zantac] 150 mg PO BID #180 tablet 02/10/17 Folic Acid 1 mg PO DAILY #90 tablet 05/06/17 Ferrous Sulfate 325 mg PO BID #60 tablet 05/15/17 Diltiazem [Cardizem] 30 mg PO Q6HR #60 tablet 07/29/17 Fluconazole [Diflucan] 100 mg PO DAILY #19 tablet 07/29/17 Sucralfate [Carafate] 1 gm PO QID #30 oral.susp 07/29/17 Erlotinib HCl [Tarceva] 100 mg PO DAILY 30 Days tablet 08/04/17 Furosemide [Lasix] 20 mg PO DAILY #30 tablet 08/11/17 Allergies Allergy/AdvReac Type Severity Reaction Status Date / Time No Known Allergies Allergy Verified 03/19/17 09:01 All systems ED: reviewed and negative except as stated. Review of Systems: As Per HPI Constitutional: Reports: weakness. Denies: fever, chills Eyes: Denies: vision change ENT ED: Denies: congestion Cardiovascular: Denies: chest pain, palpitations Respiratory: Reports: dyspnea. Denies: cough, wheezes Gastrointestinal: Denies: abdominal pain, nausea, vomiting, diarrhea Past Medical History - Past Medical History Attestation: Yes The following information was validated with the patient. Source: patient, nursing notes reviewed Medical history: Reports: atrial fibrillation, cancer, COPD, GERD, myocardial infarction, seizures Surgical history: Reports: angioplasty/stent, cancer surgery, cholecystectomy Psychiatric history: Reports: anxiety, depression - Social History Smoking Status: Former smoker Smokeless Tobacco Status: No Alcohol use: Reports: none Drug use: Reports: none Physical Exam Vital Signs Temperature 97.8 F 08/19/17 11:59 Pulse Rate 108 08/19/17 11:59 Respiratory Rate 22 08/19/17 11:59 Blood Pressure 139/113 08/19/17 11:59 O2 Sat by Pulse Oximetry 78 08/19/17 11:59 Temperature 97.8 F 08/19/17 11:59 Pulse Rate 108 08/19/17 11:59 Respiratory Rate 22 08/19/17 11:59 Blood Pressure 139/113 08/19/17 11:59 O2 Sat by Pulse Oximetry 78 08/19/17 11:59 Oxygen Delivery Oxygen Delivery Non Rebreather Mask CONSTITUTIONAL: Alert and oriented X3, cachectic appearing and in acute respiratory distress. Patient has increased work of breathing and has to take a breath after every 3 words. Patient has a GCS of 15 HEAD: Normocephalic; atraumatic. EYES: PERRL, no scleral icterus. NOSE: The nose is normal in appearance without rhinorrhea RESP: Normal chest excursion with respiration; breath sounds with bilateral rhonchi, but without wheezing or rales CARD: Very fast rate with monitor showing 165 bpm and sounds a regular, without murmurs, rub or gallop ABD: Non-distended; non-tender, soft,without rigidity, rebound or guarding SKIN: Normal for age and race; warm and dry; no apparent lesions - General General appearance: alert Course - Reevaluation(s) Reevaluation #1: EKG shows A. fib Time: 12:15 Reevaluation #2: D-dimer elevated at 4056 CTA chest ordered Patient breathing is improved and is doing well. Patient able to speak without any respiratory pauses. O2 sat 95% Time: 12:45 Reevaluation #3: Patient CTA results are back. Patient was updated on the results of pleural effusion and pneumonia and the need to start on antibiotics. Patient has accepted the decision for admission Time: 15:30 Vital Signs Temperature 97.8 F 08/19/17 11:59 Pulse Rate 108 08/19/17 11:59 Respiratory Rate 22 08/19/17 11:59 Blood Pressure 139/113 08/19/17 11:59 O2 Sat by Pulse Oximetry 78 08/19/17 11:59 Temperature 97.8 F 08/19/17 16:51 Pulse Rate 84 08/19/17 16:51 Respiratory Rate 14 08/19/17 16:51 Blood Pressure 105/75 08/19/17 16:51 O2 Sat by Pulse Oximetry 99 08/19/17 16:51 Oxygen Delivery Oxygen Delivery Nasal Cannula Shortness of Breath/Dyspnea - [facility] Narrative Medical decision making narrative: Patient was brought in by EMS with difficulty breathing with severe hypoxia concerning for PE, pneumonia, ACS/TX patient was recently hospitalized for pneumonia 2 weeks ago and is on chemotherapy for small cell lung carcinoma. Highly suspicious for pneumonia with bilateral rhonchorous lung sounds. Patient has responded well to O2 via nonrebreather and O2 sats currently in the 90s and the patient has gotten progressively better. Patient did not require BiPAP. Chest x-ray shows complete right-sided opacification without any and it is difficult to identify fluid level. D-dimer came back elevated and so the patient was sent for CTA of the chest. Results of the CTA shows a large effusion and pneumonia. Interventional radiology has agreed to perform thoracentesis. They will hold fluid for culture if the hospitalist needs it. Patient started on levofloxacin, vancomycin, and Zosyn. Dr. Avelar the hospitalist has accepted patient for admission in stable condition. - Lab Data Lab results reviewed: Yes I reviewed the patient's lab results. Lab results narrative: Short CBC 08/19/17 Range/Units 13:38 WBC 5.7 (4.3-11.1) K/mcL Hgb 10.1 L (11.5-15.4) g/dL Hct 34.3 L (35.3-44.9) % Plt Count 275 (140-400) K/mcL Neutrophils # 3.4 (1.6-8.9) K/mcL BMP 08/19/17 Range/Units 12:32 Sodium 137 (136-145) mEq/L Potassium 4.1 (3.5-5.1) mEq/L Chloride 99 (98-107) mEq/L Carbon Dioxide 30 H (23-29) mEq/L BUN 16 (8-23) mg/dL Creatinine 0.71 (0.60-1.20) mg/dL Glucose 96 (70-105) mg/dL Calcium 8.7 (8.6-10.3) mg/dL Cardiac Enzymes 08/19/17 Range/Units 12:32 Troponin I 0.03 (< 0.04) ng/mL Liver Function 08/19/17 Range/Units 12:32 Total Bilirubin 1.3 H (0.3-1.0) mg/dL Direct Bilirubin 0.4 H (0.0-0.2) mg/dL AST 25 (13-39) Units/L ALT 14 (7-52) Units/L Alkaline Phosphatase 99 (34-104) Units/L Albumin 3.2 L (3.5-5.7) g/dL Urine 08/19/17 Range/Units 13:08 Urine Color Dark Yellow (Yellow) Urine Clarity Clear (Clear) Urine pH 6.0 (5.0-8.0) pH Units Ur Specific [place] 1.022 (1.010-1.025) Urine Protein Trace (Neg-Trace) mg/dL Urine Glucose (UA) Normal (Normal) mg/dL Result diagrams: 08/19/17 13:38 08/19/17 12:32 Lab Results 08/19/17 08/19/17 08/19/17 Range/Units 12:32 12:32 12:32 WBC (4.3-11.1) K/mcL RBC (3.82-4.97) M/mcL Hgb (11.5-15.4) g/dL Hct (35.3-44.9) % MCV (83.0-100.0) fL MCH (28.0-33.3) pg MCHC (31.6-35.5) g/dL RDW (11.5-14.5) % Plt Count (140-400) K/mcL MPV (9.4-12.4) fL Immature Gran % (0-4) % Seg Neutrophils % % Lymphocytes % % Monocytes % % Eosinophils % % Basophils % % Neutrophils # (1.6-8.9) K/mcL Lymphocytes # (0.6-4.6) K/mcL Monocytes # (0.0-1.3) K/mcL Eosinophils # (0.0-0.6) K/mcL Basophils # (0.0-0.2) K/mcL PT 13.1 H (9.4-12.1) Seconds INR 1.2 APTT 26.9 (26.0-36.0) Seconds D-Dimer 4056 H (0-500) ng/mLFEU VBG pH (7.32-7.42) pH Units VBG pCO2 (41-51) mmHg VBG pO2 (25-50) mmHg VBG HCO3 (21-27) mEq/L Sodium 137 (136-145) mEq/L Potassium 4.1 (3.5-5.1) mEq/L Chloride 99 (98-107) mEq/L Carbon Dioxide 30 H (23-29) mEq/L BUN 16 (8-23) mg/dL Creatinine 0.71 (0.60-1.20) mg/dL Est GFR ( Amer) > 60 (> 60) Est GFR (Non-Af Amer) > 60 (> 60) BUN/Creatinine Ratio 23 (6-26) Glucose 96 (70-105) mg/dL Calculated Osmolality 285 (280-300) Lactic Acid 2.6 H (0.5-2.2) mmol/L Calcium 8.7 (8.6-10.3) mg/dL Phosphorus 3.6 (2.7-4.5) mg/dL Magnesium 2.0 (1.6-2.6) mg/dL Total Bilirubin 1.3 H (0.3-1.0) mg/dL Direct Bilirubin 0.4 H (0.0-0.2) mg/dL Indirect Bilirubin 0.9 (0.0-1.2) mg/dL AST 25 (13-39) Units/L ALT 14 (7-52) Units/L Alkaline Phosphatase 99 (34-104) Units/L Troponin I (< 0.04) ng/mL B-Natriuretic Peptide (Less than 100) pg/mL Serum Total Protein 5.9 L (6.4-8.9) g/dL Albumin 3.2 L (3.5-5.7) g/dL Globulin 2.7 (2.4-3.5) g/dL Albumin/Globulin Ratio 1.2 (1.1-2.2) Urine Color (Yellow) Urine Clarity (Clear) Urine pH (5.0-8.0) pH Units Ur Specific [place] (1.010-1.025) Urine Protein (Neg-Trace) mg/dL Urine Glucose (UA) (Normal) mg/dL Urine Ketones (Negative) mg/dL Urine Blood (Negative) Urine Nitrite (Negative) Urine Bilirubin (Negative) Urine Urobilinogen (Normal) mg/dL Ur Leukocyte Esterase (Negative) Urine Microscopic RBC (0-3) per hpf Urine Microscopic WBC (0-3) per hpf Ur Squamous Epith Cells (None-Few) per lpf Urine Bacteria (None-Few) per hpf Hyaline Casts (None-Few) per lpf Ur Culture Indicated? (NO) Specimen Rejected 08/19/17 08/19/17 08/19/17 Range/Units 12:32 12:50 12:53 WBC (4.3-11.1) K/mcL RBC (3.82-4.97) M/mcL Hgb (11.5-15.4) g/dL Hct (35.3-44.9) % MCV (83.0-100.0) fL MCH (28.0-33.3) pg MCHC (31.6-35.5) g/dL RDW (11.5-14.5) % Plt Count (140-400) K/mcL MPV (9.4-12.4) fL Immature Gran % (0-4) % Seg Neutrophils % % Lymphocytes % % Monocytes % % Eosinophils % % Basophils % % Neutrophils # (1.6-8.9) K/mcL Lymphocytes # (0.6-4.6) K/mcL Monocytes # (0.0-1.3) K/mcL Eosinophils # (0.0-0.6) K/mcL Basophils # (0.0-0.2) K/mcL PT (9.4-12.1) Seconds INR APTT (26.0-36.0) Seconds D-Dimer (0-500) ng/mLFEU VBG pH 7.34 (7.32-7.42) pH Units VBG pCO2 53 H (41-51) mmHg VBG pO2 63 H (25-50) mmHg VBG HCO3 29 H (21-27) mEq/L Sodium (136-145) mEq/L Potassium (3.5-5.1) mEq/L Chloride (98-107) mEq/L Carbon Dioxide (23-29) mEq/L BUN (8-23) mg/dL Creatinine (0.60-1.20) mg/dL Est GFR ( Amer) (> 60) Est GFR (Non-Af Amer) (> 60) BUN/Creatinine Ratio (6-26) Glucose (70-105) mg/dL Calculated Osmolality (280-300) Lactic Acid (0.5-2.2) mmol/L Calcium (8.6-10.3) mg/dL Phosphorus (2.7-4.5) mg/dL Magnesium (1.6-2.6) mg/dL Total Bilirubin (0.3-1.0) mg/dL Direct Bilirubin (0.0-0.2) mg/dL Indirect Bilirubin (0.0-1.2) mg/dL AST (13-39) Units/L ALT (7-52) Units/L Alkaline Phosphatase (34-104) Units/L Troponin I 0.03 (< 0.04) ng/mL B-Natriuretic Peptide (Less than 100) pg/mL Serum Total Protein (6.4-8.9) g/dL Albumin (3.5-5.7) g/dL Globulin (2.4-3.5) g/dL Albumin/Globulin Ratio (1.1-2.2) Urine Color (Yellow) Urine Clarity (Clear) Urine pH (5.0-8.0) pH Units Ur Specific [place] (1.010-1.025) Urine Protein (Neg-Trace) mg/dL Urine Glucose (UA) (Normal) mg/dL Urine Ketones (Negative) mg/dL Urine Blood (Negative) Urine Nitrite (Negative) Urine Bilirubin (Negative) Urine Urobilinogen (Normal) mg/dL Ur Leukocyte Esterase (Negative) Urine Microscopic RBC (0-3) per hpf Urine Microscopic WBC (0-3) per hpf Ur Squamous Epith Cells (None-Few) per lpf Urine Bacteria (None-Few) per hpf Hyaline Casts (None-Few) per lpf Ur Culture Indicated? (NO) Specimen Rejected Clotted 08/19/17 08/19/17 08/19/17 Range/Units 13:08 13:25 13:38 WBC 5.7 (4.3-11.1) K/mcL RBC 3.97 (3.82-4.97) M/mcL Hgb 10.1 L (11.5-15.4) g/dL Hct 34.3 L (35.3-44.9) % MCV 86.4 D (83.0-100.0) fL MCH 25.4 L (28.0-33.3) pg MCHC 29.4 L (31.6-35.5) g/dL RDW 23.7 H (11.5-14.5) % Plt Count 275 (140-400) K/mcL MPV 10.0 (9.4-12.4) fL Immature Gran % 0.4 (0-4) % Seg Neutrophils % 60.3 % Lymphocytes % 21.9 % Monocytes % 15.6 % Eosinophils % 1.4 % Basophils % 0.4 % Neutrophils # 3.4 (1.6-8.9) K/mcL Lymphocytes # 1.3 (0.6-4.6) K/mcL Monocytes # 0.9 (0.0-1.3) K/mcL Eosinophils # 0.1 (0.0-0.6) K/mcL Basophils # 0.0 (0.0-0.2) K/mcL PT (9.4-12.1) Seconds INR APTT (26.0-36.0) Seconds D-Dimer (0-500) ng/mLFEU VBG pH (7.32-7.42) pH Units VBG pCO2 (41-51) mmHg VBG pO2 (25-50) mmHg VBG HCO3 (21-27) mEq/L Sodium (136-145) mEq/L Potassium (3.5-5.1) mEq/L Chloride (98-107) mEq/L Carbon Dioxide (23-29) mEq/L BUN (8-23) mg/dL Creatinine (0.60-1.20) mg/dL Est GFR ( Amer) (> 60) Est GFR (Non-Af Amer) (> 60) BUN/Creatinine Ratio (6-26) Glucose (70-105) mg/dL Calculated Osmolality (280-300) Lactic Acid (0.5-2.2) mmol/L Calcium (8.6-10.3) mg/dL Phosphorus (2.7-4.5) mg/dL Magnesium (1.6-2.6) mg/dL Total Bilirubin (0.3-1.0) mg/dL Direct Bilirubin (0.0-0.2) mg/dL Indirect Bilirubin (0.0-1.2) mg/dL AST (13-39) Units/L ALT (7-52) Units/L Alkaline Phosphatase (34-104) Units/L Troponin I (< 0.04) ng/mL B-Natriuretic Peptide (Less than 100) pg/mL Serum Total Protein (6.4-8.9) g/dL Albumin (3.5-5.7) g/dL Globulin (2.4-3.5) g/dL Albumin/Globulin Ratio (1.1-2.2) Urine Color Dark Yellow (Yellow) Urine Clarity Clear (Clear) Urine pH 6.0 (5.0-8.0) pH Units Ur Specific [place] 1.022 (1.010-1.025) Urine Protein Trace (Neg-Trace) mg/dL Urine Glucose (UA) Normal (Normal) mg/dL Urine Ketones Negative (Negative) mg/dL Urine Blood Negative (Negative) Urine Nitrite Negative (Negative) Urine Bilirubin Small H (Negative) Urine Urobilinogen Normal (Normal) mg/dL Ur Leukocyte Esterase Negative (Negative) Urine Microscopic RBC 0-3 (0-3) per hpf Urine Microscopic WBC 0-3 (0-3) per hpf Ur Squamous Epith Cells Moderate H (None-Few) per lpf Urine Bacteria None Seen (None-Few) per hpf Hyaline Casts None Seen (None-Few) per lpf Ur Culture Indicated? NO (NO) Specimen Rejected MCV Delta 08/19/17 08/19/17 Range/Units 13:38 16:00 WBC (4.3-11.1) K/mcL RBC (3.82-4.97) M/mcL Hgb (11.5-15.4) g/dL Hct (35.3-44.9) % MCV (83.0-100.0) fL MCH (28.0-33.3) pg MCHC (31.6-35.5) g/dL RDW (11.5-14.5) % Plt Count (140-400) K/mcL MPV (9.4-12.4) fL Immature Gran % (0-4) % Seg Neutrophils % % Lymphocytes % % Monocytes % % Eosinophils % % Basophils % % Neutrophils # (1.6-8.9) K/mcL Lymphocytes # (0.6-4.6) K/mcL Monocytes # (0.0-1.3) K/mcL Eosinophils # (0.0-0.6) K/mcL Basophils # (0.0-0.2) K/mcL PT (9.4-12.1) Seconds INR APTT (26.0-36.0) Seconds D-Dimer (0-500) ng/mLFEU VBG pH (7.32-7.42) pH Units VBG pCO2 (41-51) mmHg VBG pO2 (25-50) mmHg VBG HCO3 (21-27) mEq/L Sodium (136-145) mEq/L Potassium (3.5-5.1) mEq/L Chloride (98-107) mEq/L Carbon Dioxide (23-29) mEq/L BUN (8-23) mg/dL Creatinine (0.60-1.20) mg/dL Est GFR ( Amer) (> 60) Est GFR (Non-Af Amer) (> 60) BUN/Creatinine Ratio (6-26) Glucose (70-105) mg/dL Calculated Osmolality (280-300) Lactic Acid 1.8 (0.5-2.2) mmol/L Calcium (8.6-10.3) mg/dL Phosphorus (2.7-4.5) mg/dL Magnesium (1.6-2.6) mg/dL Total Bilirubin (0.3-1.0) mg/dL Direct Bilirubin (0.0-0.2) mg/dL Indirect Bilirubin (0.0-1.2) mg/dL AST (13-39) Units/L ALT (7-52) Units/L Alkaline Phosphatase (34-104) Units/L Troponin I (< 0.04) ng/mL B-Natriuretic Peptide 592 H (Less than 100) pg/mL Serum Total Protein (6.4-8.9) g/dL Albumin (3.5-5.7) g/dL Globulin (2.4-3.5) g/dL Albumin/Globulin Ratio (1.1-2.2) Urine Color (Yellow) Urine Clarity (Clear) Urine pH (5.0-8.0) pH Units Ur Specific [place] (1.010-1.025) Urine Protein (Neg-Trace) mg/dL Urine Glucose (UA) (Normal) mg/dL Urine Ketones (Negative) mg/dL Urine Blood (Negative) Urine Nitrite (Negative) Urine Bilirubin (Negative) Urine Urobilinogen (Normal) mg/dL Ur Leukocyte Esterase (Negative) Urine Microscopic RBC (0-3) per hpf Urine Microscopic WBC (0-3) per hpf Ur Squamous Epith Cells (None-Few) per lpf Urine Bacteria (None-Few) per hpf Hyaline Casts (None-Few) per lpf Ur Culture Indicated? (NO) Specimen Rejected - Radiology Data Radiology results reviewed: Yes I reviewed the patient's radiology results. Chest X-Ray 08/19/17 12:07 IMPRESSION: 1. Stable small left pleural effusion with overlying atelectasis. 2. Stable postsurgical changes status post right pneumonectomy. D/ / Kameron Amanda MD / Kameron Amanda MD Interpreting Provider: Kameron Amanda MD Chest CTA 08/19/17 12:59 IMPRESSION: No pulmonary emboli are identified. Moderate to large left-sided pleural effusion. Patchy ground-glass opacities with a few nodular appearing type infiltrates seen in the lingula, superimposed on a background of mild interlobular septal thickening suggestive of pulmonary edema and possible atypical infection. Stable complete collapse of the remaining right lung status post partial pneumonectomy per given history. Cardiomegaly and coronary artery atherosclerotic disease. Occlusion of the left innominate vein, with collateralization through the mediastinum and liver. Pulmonary arterial hypertension. Mild body wall edema suggestive of 3rd spacing. D/ / Thierry Naranjo MD / Thierry Naranjo MD Interpreting Provider: Thierry Naranjo MD - EKG Data EKG attestation: Yes I reviewed and interpreted this EKG. EKG results narrative: EKG taken or 2017 at 1204 hrs. shows A. fib with a RVR at a rate of [address] elevations or depressions and a leads. EKG for comparison taken 07/20/2017 also shows A. fib RVR at a rate of 169 beats a minute.
--- NOTE | 2017-08-19 12:35 | Emergency Department Note ---
START Narrative - START START: I examined this patient and my medical decision-making was reviewed with the GLOBAL SAFETY OFFICER/PA/Advanced Practice Nurse/Resident Physician. I agree with the documented findings, disposition and treatment plan as described except to the extent set forth below. ED attending: Patient's emergency medicine resident Dr. Alex Rand. Please see copy of this note for H&P evaluation and management and ED disposition. We both had independent [id number] time in contact with this patient. Briefly: 72-year-old female history of lung cancer had a right lower lobectomy in the distant past she is on oral chemotherapy does not report presents with shortness of breath satting in the 70s with mild improvement with nonrebreather. Upon arrival here she was dyspneic but was able to give a verbal history. She was not in extremis. She has no directives. Pulmonary review of her chest x-ray shows opacification of the remaining right lung segments. Labs d-dimer other things pending. Admission anticipated. Providing 45 minutes of critical care services for this patient
[2017-08-19 12:54] LABS: INR 1.2; Prothrombin Time 13.1 Seconds (9.4-12.1)
[2017-08-19 12:55] LABS: VBG HCO3 29 mEq/L (21-27); VBG PCO2 53 mmHg (41-51); VBG PH 7.34 pH Units (7.32-7.42); VBG PO2 63 mmHg (25-50)
[2017-08-19 12:56] LABS: Activated Partial Thrombo Time 26.9 Seconds (26.0-36.0)
[2017-08-19 13:05] LABS: Alanine Aminotransferase 14 Units/L (7-52); Albumin 3.2 g/dL (3.5-5.7); Albumin/Globulin Ratio 1.2 (1.1-2.2); Alkaline Phosphatase 99 Units/L (34-104); Aspartate Amino Transferase 25 Units/L (13-39); BUN/Creatinine Ratio 23 (6-26); Bilirubin,Direct 0.4 mg/dL (0.0-0.2); Bilirubin,Indirect 0.9 mg/dL (0.0-1.2); Bilirubin,Total 1.3 mg/dL (0.3-1.0); Blood Urea Nitrogen 16 mg/dL (8-23); Calcium 8.7 mg/dL (8.6-10.3); Carbon Dioxide 30 mEq/L (23-29); Chloride 99 mEq/L (98-107); Globulin 2.7 g/dL (2.4-3.5); Glucose 96 mg/dL (70-105); Osmolality,Calculated 285 (280-300); Phosphorous 3.6 mg/dL (2.7-4.5); Potassium 4.1 mEq/L (3.5-5.1); Sodium 137 mEq/L (136-145); Total Protein 5.9 g/dL (6.4-8.9); eGFR For African Americans > 60 (> 60); eGFR For Non-African Americans > 60 (> 60)
[2017-08-19 13:16] LABS: Bilirubin,Urine Small (Negative); Blood,Urine Negative (Negative); Clarity,Urine Clear (Clear); Color,Urine Dark Yellow (Yellow); Glucose,Urine (UA) Normal (Normal); Ketones,Urine Negative (Negative); Leukocyte Esterase,Urine Negative (Negative); Nitrite,Urine Negative (Negative); Protein,Urine Trace mg/dL (Neg-Trace); Specific Gravity,Urine 1.022 (1.010-1.025); Urobilinogen,Urine Normal (Normal)
[2017-08-19 13:17] LABS: Bacteria,Urine None Seen per hpf (None-Few); Hyaline Casts,Urine None Seen per lpf (None-Few); RBC,Urine 0-3 per hpf (0-3); Squamous Epithelial Cell,Urine Moderate per lpf (None-Few); WBC,Urine 0-3 per hpf (0-3)
[2017-08-19 13:46] LABS: Basophils % 0.4 %; Eosinophils # 0.1 K/mcL (0.0-0.6); Eosinophils % 1.4 %; Hematocrit 34.3 % (35.3-44.9); Hemoglobin 10.1 g/dL (11.5-15.4); Immature Granulocytes % 0.4 % (0-4); Lymphocytes % 21.9 %; Mean Corpuscular HGB Conc 29.4 g/dL (31.6-35.5); Mean Corpuscular Hemoglobin 25.4 pg (28.0-33.3); Mean Corpuscular Volume 86.4 fL (83.0-100.0); Monocytes # 0.9 K/mcL (0.0-1.3); Monocytes % 15.6 %; Neutrophils # 3.4 K/mcL (1.6-8.9); Platelet Count 275 K/mcL (140-400); Red Blood Count 3.97 M/mcL (3.82-4.97); Red Cell Distribution Width 23.7 % (11.5-14.5); Segmented Neutrophils % 60.3 %
[2017-08-19 13:47] LABS: Lymphocytes # 1.3 K/mcL (0.6-4.6)
[2017-08-19] MEDS ORDERED: Vancomycin 750 MG in D5% in Water 250 ML IVPB ONE (15:08)
[2017-08-19] MEDS ORDERED: Levofloxacin 750 MG/150 ML 750 MG/150 ML BAG IVPB ONE (15:08)
[2017-08-19] MEDS ORDERED: Piperacillin/Tazobactam 3.375 GM in Water for inj. (sterile) 20 ML IVP ONE (15:08)
--- NOTE | 2017-08-19 15:37 | IR Procedure Note ---
Date of procedure: 08/19/17 Consent Obtained: Written consent Timeout: Correct patient and procedure verified, Correct site verified, Time out performed, Skin prep completed Local anesthetic: Lidocaine 1% Indications: Left pleural effusion, dyspnea Procedure Performed: Left thoracentesis Was there an library technical assistant present: No Site/Technique: Left chest Results/Findings: 1L of pleural fluid removed. Estimated blood loss (cc): 1 Complications: None; Tolerated procedure well Post Procedure Treatment Plan: Monitoring in ER Specimen: Specimen obtained in 60ml syringe.
--- NOTE | 2017-08-19 16:22 | Internal Med History&Physical ---
Date of Encounter: 08/19/17 Time of Encounter: 16:17 Assessment and Plan (1) HCAP (healthcare-associated pneumonia) Current visit: Yes Status: Acute Patient recently discharged July 29 presented with pneumonia and pleural effusion will treat with Triple antibiotic vancomycin and Zosyn and Levaquin and send for blood culture (2) Hypoxia Current visit: Yes Status: Acute We will continue oxygen supplementation (3) Atrial fibrillation with RVR Current visit: Yes Status: Chronic Patient has history of present fibrillation myelographically response due to pneumonia started on Cardizem drip and emergency room (4) Acute and chronic respiratory failure with hypoxia Current visit: No Status: Acute Acute on chronic respiratory failure due to pneumonia patient actively wheezing on exam DuoNeb and when necessary (5) Coronary artery disease Current visit: No Status: Acute Was trimmed troponin currently no chest pain Qualifiers: Coronary Disease-Associated Artery/Lesion type: [place] artery [place] vs. transplanted heart: [place] heart Associated angina: without angina Qualified Code(s): I25.10 - Atherosclerotic heart disease of [place] coronary artery without angina pectoris (6) Pleural effusion on left Current visit: No Status: Acute large left pleural effusion s/p thoracentesis and one litter removed (7) Hypertension Current visit: No Status: Chronic chronic and well controlled Qualifiers: Hypertension type: essential hypertension Qualified Code(s): I10 - Essential (primary) hypertension (8) Non-small cell lung cancer Current visit: No Status: Chronic followed by DR cuello Qualifiers: Laterality: left Qualified Code(s): C34.92 - Malignant neoplasm of unspecified part of left bronchus or lung Internal Medicine - H&P: HPI Chief complaint: sob Admitted From: Emergency Dept Plans for Post Hospital Care: Home History of present illness: Ms. Wong is a 72 year old female Patient with history of lung cancer status post right lobectomy with a recurrent pleural effusion, patient also has history of atrial fibrillation, high cholesterol, COPD, CAD has had 5 stents, seizure disorder, diastolic heart failure, anxiety and depression patient wasl recently in the hospital dischrged about 2 weeks ago patient developed acute onset of severe shortness of breath call the PCP and went to the office from the office saturation was 70% then sent to the emergency room placed on nonrebreather by the EMS. Patient arrived very hypoxic evaluation has CTA which show pneumonia was given vancomycin and Zosyn and Levaquin also large left pleural effusion interventional radiology came by at the bedside and removed about 1 L patient clinically says she feels better she is in atrial fib with rapid ventricular response given some Cardizem and being started on Cardizem drip. she states she felt much better heart rate is in the 120 atrial fibrillation patient being admitted for follow up evaluation to continue IV antibiotics Cardizem drip. Past Med Surg Social Fam HX - Past Medical History Medical history: atrial fibrillation, cancer, COPD, GERD, myocardial infarction , seizures Psychiatric history: anxiety, depression - Past Surgical History Surgical History: angioplasty/stent, cancer surgery, cholecystectomy - Social History Smoking Status: Former smoker Smokeless Tobacco Status: No Alcohol use: none Drug use: none - Family History Mother Hx Family Cardiac Disorders: Yes Father Hx Family Cardiac Disorders: Yes Internal Medicine - H&P: Meds Albuterol Neb [Proventil Neb] 2.5 mg IH Q4HR 05/21/15 [History] Calcium Carbonate [Tums] 500 mg PO DAILY 05/21/15 [History] Docusate [Colace] 100 mg PO BID 05/21/15 [History] Oxygen 2 l NS AD 10/28/16 [History] Clopidogrel [Plavix] 75 mg PO DAILY #30 tablet 01/13/17 [Rx] Ranitidine HCl [Zantac] 150 mg PO BID #180 tablet 02/10/17 [Rx] Atorvastatin [Lipitor] 40 mg PO HS 03/19/17 [History] Folic Acid 1 mg PO DAILY #90 tablet 05/06/17 [Rx] Pantoprazole Sodium [Protonix] 40 mg PO DAILY 05/11/17 [History] Ferrous Sulfate 325 mg PO BID #60 tablet 05/15/17 [Rx] Aspirin 81 mg PO DAILY 07/20/17 [History] Diltiazem [Cardizem] 30 mg PO Q6HR #60 tablet 07/29/17 [Rx] Fluconazole [Diflucan] 100 mg PO DAILY #19 tablet 07/29/17 [Rx] Sucralfate [Carafate] 1 gm PO QID #30 oral.susp 07/29/17 [Rx] Erlotinib HCl [Tarceva] 100 mg PO DAILY 30 Days tablet 08/04/17 [Rx] Furosemide [Lasix] 20 mg PO DAILY #30 tablet 08/11/17 [Rx] Gabapentin [Neurontin] 600 mg PO BID 08/19/17 [History] Loratadine [Allergy Relief] 10 mg PO DAILY 08/19/17 [History] Metoprolol XL (24 HR) Succ [Toprol XL] 50 mg PO DAILY 08/19/17 [History] 3 Allergy/AdvReac Type Severity Reaction Status Date / Time No Known Allergies Allergy Verified 03/19/17 09:01 All Systems PM: A 10-system review of systems was performed and is negative for pertinent findings except as documented above in the HPI. - Constitutional Constitutional: as per HPI, anorexia, fatigue, lethargy - EENT Eyes: no change in vision, no discharge, no pain, no photophobia Ears: no ear discharge, no ear pain, no tinnitus Nose, mouth and throat: no dysphagia, no nasal discharge, no neck pain, no sore throat - Cardiovascular Cardiovascular ROS IM: dyspnea on exertion, irregular heart rhythm - Respiratory Respiratory: cough, dyspnea on exertion, wheezing - Gastrointestinal Gastrointestinal: no abdominal pain, no diarrhea, no hematemesis, no hematochezia, no melena, no nausea, no vomiting - Genitourinary Genitourinary: no change in urinary stream, no dysuria, no flank pain, no hematuria - Musculoskeletal Musculoskeletal ROS IM: no numbness, no tingling - Constitutional Vitals: Temp Pulse Resp BP Pulse Ox 97.8 F 112 22 99/78 96 08/19/17 11:59 08/19/17 16:02 08/19/17 16:02 08/19/17 16:02 08/19/17 16:02 General appearance: Present: mild distress, loss of weight - Eye Eye exam: Present: PERRL, conjuntiva pink, sclera anicteric Pupils: Present: PERRL - Respiratory Respiratory exam: Present: prolonged expiratory phase, rhonchi, wheezes - Cardiovascular Cardiovascular exam: Present: irregular rhythm, systolic murmur - GI/Abdominal GI/Abdominal exam: Present: normal bowel sounds, soft, no peritoneal signs. Absent: distended, tenderness Internal Med - H&P Results - Labs CBC & Chem 7: 08/19/17 13:38 08/19/17 12:32
[2017-08-19] MEDS ORDERED: Naloxone 0.4 MG/ML INJ IVP PRN (16:30)
[2017-08-19] MEDS ORDERED: Ipratropium/Albuterol Neb 3 ML IH PRN (16:38)
[2017-08-19] MEDS ORDERED: *HR* Digoxin 0.5 MG/2 ML AMPUL IVP ONE (16:39)
[2017-08-19] MEDS ORDERED: Levofloxacin 750 MG/150 ML 750 MG/150 ML BAG IVPB SCH (18:00)
[2017-08-19] MEDS: Ipratropium/Albuterol Neb 3 ML IH SCH (20:00)
[2017-08-19] MEDS: Vancomycin 750 MG in D5% in Water 250 ML IVPB SCH (20:46)
[2017-08-19] MEDS: Gabapentin 300 MG CAPSULE PO SCH (20:46)
[2017-08-19] MEDS: Famotidine 20 MG TABLET PO SCH (20:47)
[2017-08-20] MEDS: Ipratropium/Albuterol Neb 3 ML IH SCH ×7 (00:20→23:23)
[2017-08-20 00:40] LABS: Hematocrit 29.9 % (35.3-44.9); Hemoglobin 8.8 g/dL (11.5-15.4); Mean Corpuscular HGB Conc 29.4 g/dL (31.6-35.5); Mean Corpuscular Hemoglobin 25.2 pg (28.0-33.3); Mean Corpuscular Volume 85.7 fL (83.0-100.0); Mean Platelet Volume 9.4 fL (9.4-12.4); Platelet Count 210 K/mcL (140-400); Red Blood Count 3.49 M/mcL (3.82-4.97); Red Cell Distribution Width 23.6 % (11.5-14.5)
[2017-08-20 01:25] LABS: Alanine Aminotransferase 12 Units/L (7-52); Albumin 2.6 g/dL (3.5-5.7); Albumin/Globulin Ratio 1.2 (1.1-2.2); Alkaline Phosphatase 84 Units/L (34-104); Aspartate Amino Transferase 20 Units/L (13-39); BUN/Creatinine Ratio 22 (6-26); Bilirubin,Total 0.9 mg/dL (0.3-1.0); Blood Urea Nitrogen 15 mg/dL (8-23); Calcium 7.8 mg/dL (8.6-10.3); Carbon Dioxide 31 mEq/L (23-29); Chloride 100 mEq/L (98-107); Globulin 2.1 g/dL (2.4-3.5); Glucose 72 mg/dL (70-105); Magnesium 1.8 mg/dL (1.6-2.6); Osmolality,Calculated 277 (280-300); Potassium 3.9 mEq/L (3.5-5.1); Sodium 134 mEq/L (136-145); Total Protein 4.7 g/dL (6.4-8.9); eGFR For African Americans > 60 (> 60); eGFR For Non-African Americans > 60 (> 60)
[2017-08-20] MEDS: *HR* Enoxaparin 40 MG/0.4 ML SYRINGE SQ SCH (06:09)
[2017-08-20] MEDS: Vancomycin 750 MG in D5% in Water 250 ML IVPB SCH (06:09)
[2017-08-20] MEDS: Loratadine 10 MG TABLET PO SCH (08:34)
[2017-08-20] MEDS: Gabapentin 300 MG CAPSULE PO SCH ×2 (08:34→20:49)
[2017-08-20] MEDS: Folic Acid 1 MG TABLET PO SCH (08:34)
[2017-08-20] MEDS: Famotidine 20 MG TABLET PO SCH (08:35)
[2017-08-20] MEDS: Fluconazole 100 MG TABLET PO SCH (08:35)
[2017-08-20] MEDS: Aspirin 81 MG TAB.CHEW PO SCH (08:35)
[2017-08-20] MEDS: ERLOTINIB HCL 100 MG PO SCH (09:10)
--- NOTE | 2017-08-20 09:41 | Internal Med Progress Note ---
<Kameron Rodríguez - Last Filed: 08/20/17 16:12> Date of Encounter: 08/20/17 Time of Encounter: 09:38 - Assessment and plan (1) Acute and chronic respiratory failure Current Visit: Yes Status: Acute Assessment and plan: - Likely secondary to pleural effusion status post thoracentesis on left versus hospital-acquired pneumonia - History of COPD, unlikely contributing - Wheezing auscultated during physical examination, diminished lung sounds on right - Pt currently tolerating 3L O2, at home requirement. plan - Further management as below for hospital acquired pneumonia, COPD Qualifiers: Respiratory failure complication: hypoxia Qualified Code(s): J96.21 - Acute and chronic respiratory failure with hypoxia (2) Pleural effusion on left Current Visit: Yes Status: Acute Assessment and plan: Likely etiology of dyspnea in addition to known lung malignancy Status post thoracentesis by interventional radiology yesterday Continue to monitor (3) HCAP (healthcare-associated pneumonia) Current Visit: Yes Status: Acute Assessment and plan: - Suspected HAP, pt was recently admitted to this facility 3 weeks ago for similar symptoms - More likely etiology for SOB being pleural effusion in the setting of known lung malignancy vs COPD - Afebrile, WBC wnl at 4.9. Hr mildly elevated at 101 - Tolerating home O2. Productive cough with thick yellow sputum at baseline - CXR shows complete opacification of right lung, resolved pleural effusion on left Plan - Will discontinue Vanc and Zosyn as we do not suspect MRSA. Continue levaquin - She appears to be clinically improved from admission. Continue to monitor (4) Atrial fibrillation with RVR Current Visit: Yes Status: Chronic Assessment and plan: - Known history of AFib, confirmed on EKG - HR most recently at 101 - Likely secondary to hypoxia secondary to pleural effusion - Started on cardizem gtt in ED - Anticoagulated with lovenox. - CHADVASC 4 Plan - Continue cardizem, transition to PO - Continue lovenox. (5) Anemia Current Visit: Yes Status: Chronic Assessment and plan: H&H most recently .03/09.9 Patient does not known documented history of anemia likely secondary to chronic disease versus iron deficiency Hemoglobin mildly decreased from admission, likely related to dilutional effect I will continue to monitor at this time, patient is asymptomatic however it is noted that she is on chemotherapy Qualifiers: Anemia type: iron deficiency Iron deficiency anemia type: other iron deficiency Qualified Code(s): D50.8 - Other iron deficiency anemias (6) COPD (chronic obstructive pulmonary disease) Current Visit: Yes Status: Chronic Assessment and plan: - History of COPD, former smoker with known lung malignancy -Do not suspect etiology of dyspnea at this time - Currently tolerating home oxygen requirement - Wheezing on auscultation during physical exam Plan - Management as above however will add prednisone 40 mg daily Qualifiers: COPD type: unspecified COPD Qualified Code(s): J44.9 - Chronic obstructive pulmonary disease, unspecified (7) Hypertension Current Visit: Yes Status: Chronic Assessment and plan: - BP well controlled at 105/65 - Continue home meds. Qualifiers: Hypertension type: essential hypertension Qualified Code(s): I10 - Essential (primary) hypertension (8) Non-small cell lung cancer Current Visit: Yes Status: Chronic Assessment and plan: Known history of small cell lung carcinoma. Follows with Dr. Valadez at [place] Currently takes Erlotinib every day Plan Continue management as outpatient Qualifiers: Laterality: left Qualified Code(s): C34.92 - Malignant neoplasm of unspecified part of left bronchus or lung (9) DVT prophylaxis Current Visit: Yes Status: Acute Assessment and plan: Lovenox - Time Spent With Patient 25 - 35 minutes - Subjective Interval history: Patient seen and examined at bedside this morning. She reports that she is chronically short of breath requiring 3 L home O2 but she has been progressively worsening. She denies symptoms of orthopnea, LE edema, fevers, chills, chest pain, new cough. She does have a chronic productive cough with thick yellow sputum but it has not changed. She states she was recently admitted 2 weeks ago for similar complaints and she feels she never fully recovered from the pneumonia she was treated for. - Constitutional Vitals: Temp Pulse Resp BP Pulse Ox 97.8 F 101 16 101/67 100 08/20/17 06:00 08/20/17 06:00 08/20/17 07:52 08/20/17 06:00 08/20/17 07:52 General appearance: Present: mild distress, loss of weight Exam: Gen.: Vitals noted. No acute distress. AAOx3 HEENT: PERRL/EOMI, oropharynx clear, Normocephalic, atraumatic Cardiac: RRR, no murmur, +S1/S2 Pulmonary: Diminished breath sounds on right, moderate amount of wheezing on left. equal chest expansion Abdomen: soft, nontender, BS noted, no guarding MSK: ROM intact, no joint swelling noted Extremities: no BLE edema, nontender calf, no cyanosis or clubbing Neuro: A&Ox3, moves all extremities, no focal deficits Psych: Appropriate mood and behavior Internal Medicine: Result - Labs CBC & Chem 7: 08/20/17 00:32 08/20/17 00:32 Labs: Short CBC 08/20/17 Range/Units 00:32 WBC 4.2 L (4.3-11.1) K/mcL Hgb 8.8 L (11.5-15.4) g/dL Hct 29.9 L (35.3-44.9) % Plt Count 210 (140-400) K/mcL BMP 08/20/17 00:32 Sodium 134 L Potassium 3.9 Chloride 100 Carbon Dioxide 31 H BUN 15 Creatinine 0.68 Glucose 72 Calcium 7.8 L Cardiac Enzymes 08/19/17 08/20/17 08/20/17 Range/Units 18:47 00:32 06:05 Troponin I 0.03 0.03 < 0.03 (< 0.04) ng/mL Liver Function 08/20/17 Range/Units 00:32 Total Bilirubin 0.9 (0.3-1.0) mg/dL AST 20 (13-39) Units/L ALT 12 (7-52) Units/L Alkaline Phosphatase 84 (34-104) Units/L Albumin 2.6 L (3.5-5.7) g/dL - ABG Interpretation ABG results: PT/INR, D-dimer PT 13.1 Seconds (9.4-12.1) H 08/19/17 12:32 D-Dimer 4056 ng/mLFEU (0-500) H 08/19/17 12:32 Consult Discharge Plan - Plan Referrals: Senait Wong CNP [Primary Care Provider] - 08/26/17 2:40 pm <Doron Loaiza - Last Filed: 08/20/17 18:56> Date of Encounter: 08/20/17 - Assessment and plan (1) Acute and chronic respiratory failure Current Visit: Yes Status: Acute Qualifiers: Respiratory failure complication: hypoxia Qualified Code(s): J96.21 - Acute and chronic respiratory failure with hypoxia (2) Pneumonia Current Visit: Yes Status: Suspected Qualifiers: Pneumonia type: due to other aerobic Gram-negative bacteria Laterality: right Lung location: lower lobe of lung Qualified Code(s): J15.6 - Pneumonia due to other Gram-negative bacteria (3) Coronary artery disease Current Visit: No Status: Acute Qualifiers: Coronary Disease-Associated Artery/Lesion type: [place] artery [place] vs. transplanted heart: [place] heart Associated angina: without angina Qualified Code(s): I25.10 - Atherosclerotic heart disease of [place] coronary artery without angina pectoris (4) Atrial fibrillation Current Visit: No Status: Chronic Qualifiers: Atrial fibrillation type: paroxysmal Qualified Code(s): I48.0 - Paroxysmal atrial fibrillation - Constitutional Vitals: Temp Pulse Resp BP Pulse Ox 98.0 F 81 16 105/65 94 08/20/17 15:35 08/20/17 15:35 08/20/17 16:06 08/20/17 15:35 08/20/17 16:06 Internal Medicine: Result - Labs CBC & Chem 7: 08/20/17 00:32 08/20/17 00:32 Labs: Short CBC 08/20/17 Range/Units 00:32 WBC 4.2 L (4.3-11.1) K/mcL Hgb 8.8 L (11.5-15.4) g/dL Hct 29.9 L (35.3-44.9) % Plt Count 210 (140-400) K/mcL BMP 08/20/17 00:32 Sodium 134 L Potassium 3.9 Chloride 100 Carbon Dioxide 31 H BUN 15 Creatinine 0.68 Glucose 72 Calcium 7.8 L Cardiac Enzymes 08/19/17 08/20/17 08/20/17 Range/Units 18:47 00:32 06:05 Troponin I 0.03 0.03 < 0.03 (< 0.04) ng/mL Liver Function 08/20/17 Range/Units 00:32 Total Bilirubin 0.9 (0.3-1.0) mg/dL AST 20 (13-39) Units/L ALT 12 (7-52) Units/L Alkaline Phosphatase 84 (34-104) Units/L Albumin 2.6 L (3.5-5.7) g/dL - ABG Interpretation ABG results: PT/INR, D-dimer PT 13.1 Seconds (9.4-12.1) H 08/19/17 12:32 D-Dimer 4056 ng/mLFEU (0-500) H 08/19/17 12:32 - Attending Attestation I examined this patient and my medical decision-making was reviewed with the Resident Physician on 08/20/17. I agree with the documented findings, disposition and treatment plan as described except to the extent set forth below. Ms Wong is currently admitted for resp failure and proabable pneumonia. She remains moderate to high risk due to potential for worsening clinical status. Ms Wong is resting comfortably. No fever or chills. Breathing getting back to baseline. Less cough. Exam Alert. Comfortable Mucus membranes dry Heart not tachy Scant wheeze I/P 1. Resp failure 2. lung cancer Further diagnoses and plan as above.
--- NOTE | 2017-08-20 10:00 | Electrocardiograph Report ---
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
[2017-08-21] MEDS: Ipratropium/Albuterol Neb 3 ML IH SCH ×6 (04:15→23:31)
[2017-08-21] MEDS: *HR* Enoxaparin 40 MG/0.4 ML SYRINGE SQ SCH (05:49)
[2017-08-21 07:15] LABS: Hematocrit 32.9 % (35.3-44.9); Hemoglobin 9.6 g/dL (11.5-15.4); Mean Corpuscular HGB Conc 29.2 g/dL (31.6-35.5); Mean Corpuscular Hemoglobin 25.3 pg (28.0-33.3); Mean Corpuscular Volume 86.8 fL (83.0-100.0); Mean Platelet Volume 10.1 fL (9.4-12.4); Platelet Count 280 K/mcL (140-400); Red Blood Count 3.79 M/mcL (3.82-4.97); Red Cell Distribution Width 23.1 % (11.5-14.5)
[2017-08-21] MEDS: predniSONE 20 MG TABLET PO SCH (08:40)
[2017-08-21] MEDS: Loratadine 10 MG TABLET PO SCH (08:41)
[2017-08-21] MEDS: Fluconazole 100 MG TABLET PO SCH (08:41)
[2017-08-21] MEDS: Gabapentin 300 MG CAPSULE PO SCH ×2 (08:41→22:22)
[2017-08-21] MEDS: Aspirin 81 MG TAB.CHEW PO SCH (08:41)
[2017-08-21] MEDS: Folic Acid 1 MG TABLET PO SCH (08:42)
[2017-08-21] MEDS: Famotidine 20 MG TABLET PO SCH (08:42)
[2017-08-21] MEDS: ERLOTINIB HCL 100 MG PO SCH (08:45)
[2017-08-21] MEDS ORDERED: Furosemide 40 MG/4 ML VIAL IVP STA (09:30)
[2017-08-21 12:01] LABS: Adenovirus Not Detected (Not Detect); Bordetella Pertussis Not Detected (Not Detect); Chlamydophila pneumoniae Not Detected (Not Detect); Coronavirus 229E Not Detected (Not Detect); Coronavirus HKU1 Not Detected (Not Detect); Coronavirus NL63 Not Detected (Not Detect); Coronavirus OC43 Not Detected (Not Detect); Human Metapneumovirus Not Detected (Not Detect); Human Rhinovirus/Enterovirus Not Detected (Not Detect); Influenza A Subtype 2009 H1 Not Detected (Not Detect); Influenza A Untypeable Not Detected (Not Detect); Influenza B Not Detected (Not Detect); Mycoplasma pneumoniae Not Detected (Not Detect); Parainfluenza Virus 1 Not Detected (Not Detect); Parainfluenza Virus 2 Not Detected (Not Detect); Parainfluenza Virus 3 Not Detected (Not Detect); Parainfluenza Virus 4 Not Detected (Not Detect); Respiratory Syncytial Virus Not Detected (Not Detect)
--- NOTE | 2017-08-21 14:54 | Internal Med Progress Note ---
Date of Encounter: 08/21/17 Time of Encounter: 08:15 - Assessment and plan (1) Acute and chronic respiratory failure Current Visit: Yes Status: Acute Assessment and plan: - Respiratory status has worsened today. - More dyspneic on exam - Continue oxygen supplementation and wean as able Qualifiers: Respiratory failure complication: hypoxia Qualified Code(s): J96.21 - Acute and chronic respiratory failure with hypoxia (2) Pneumonia Current Visit: Yes Status: Suspected Assessment and plan: Abx decreased to just Levaquin yesterday Clinically she has worsened after this change Will restart Zosyn and Vancomycin and reassess clinical status. Qualifiers: Pneumonia type: due to other aerobic Gram-negative bacteria Laterality: right Lung location: lower lobe of lung Qualified Code(s): J15.6 - Pneumonia due to other Gram-negative bacteria (3) Coronary artery disease Current Visit: No Status: Chronic Assessment and plan: Chronic issue. Qualifiers: Coronary Disease-Associated Artery/Lesion type: [place] artery [place] vs. transplanted heart: [place] heart Associated angina: without angina Qualified Code(s): I25.10 - Atherosclerotic heart disease of [place] coronary artery without angina pectoris (4) Atrial fibrillation Current Visit: No Status: Chronic Assessment and plan: Rate has varied but up somewhat today. Continue home meds. Qualifiers: Atrial fibrillation type: paroxysmal Qualified Code(s): I48.0 - Paroxysmal atrial fibrillation (5) Pleural effusion on right Current Visit: Yes Status: Acute Assessment and plan: Will repeat CXR today to assess recurrence. (6) SCLC (small cell lung carcinoma) Current Visit: Yes Status: Chronic Assessment and plan: Known history of small cell lung carcinoma. Follows with Dr. Valadez at [place] Currently takes Erlotinib every day Plan Continue management as outpatient Qualifiers: Laterality: unspecified laterality Qualified Code(s): C34.90 - Malignant neoplasm of unspecified part of unspecified bronchus or lung (7) Anemia Current Visit: Yes Status: Chronic Assessment and plan: Most likely related to chronic disease associated with hx of cancer. Following at this time. Qualifiers: Anemia type: other cause Other causes of anemia: chronic disease, neoplastic Qualified Code(s): D63.0 - Anemia in neoplastic disease - Subjective Interval history: Ms Wong is currently admitted for acute resp failure related to pleural effusion and lung cancer with possible pneumonia as well. She remains moderate to high risk due to potential for worsening clinical status. Ms Wong is having a lot more respiratory distress today. No fever. Feels a lot more swollen. Concerned the pleural effusion is returning. Has also not been on Lasix at all. No CP. No GI issues. - Constitutional Vitals: Temp Pulse Resp BP Pulse Ox 98.5 F 117 18 105/75 3 08/21/17 11:20 08/21/17 13:55 08/21/17 11:28 08/21/17 13:55 08/21/17 12:02 General appearance: Present: mild distress - Head Head exam: Present: normocephalic - Eye Eye exam: Present: conjuntiva pink Additional comments: Face puffy around eyes. - ENT ENT exam: Present: mucous membranes dry - Respiratory Respiratory exam: Present: decreased breath sounds, rales. Absent: rhonchi, wheezes - Cardiovascular Cardiovascular exam: Present: distant heart sounds, tachycardia. Absent: systolic murmur - GI/Abdominal GI/Abdominal exam: Present: soft. Absent: tenderness - Extremities Exam Extremities exam: Present: warm Additional comments: Edema present. - Neurological Exam Neurological exam: Present: alert, oriented X3 - Skin Skin exam: Present: warm Internal Medicine: Result - Labs CBC & Chem 7: 08/21/17 06:04 08/20/17 00:32 Labs: Short CBC 08/21/17 Range/Units 06:04 WBC 6.2 (4.3-11.1) K/mcL Hgb 9.6 L (11.5-15.4) g/dL Hct 32.9 L (35.3-44.9) % Plt Count 280 (140-400) K/mcL - ABG Interpretation ABG results: PT/INR, D-dimer PT 13.1 Seconds (9.4-12.1) H 08/19/17 12:32 D-Dimer 4056 ng/mLFEU (0-500) H 08/19/17 12:32 Consult Discharge Plan - Plan Referrals: Senait Wong CNP [Primary Care Provider] - 08/26/17 2:40 pm
[2017-08-21] MEDS ORDERED: Vancomycin 750 MG in D5% in Water 250 ML IVPB SCH (16:00)
[2017-08-21] MEDS ORDERED: Levofloxacin 750 MG/150 ML 750 MG/150 ML BAG IVPB SCH (16:00)
[2017-08-21] MEDS: Vancomycin 750 MG in D5% in Water 250 ML IVPB SCH (17:23)
[2017-08-22] MEDS ORDERED: *HR* LORazepam 0.5 MG TABLET PO STA (00:31)
[2017-08-22] MEDS: Ipratropium/Albuterol Neb 3 ML IH SCH ×5 (04:05→20:19)
[2017-08-22] MEDS: Vancomycin 750 MG in D5% in Water 250 ML IVPB SCH ×2 (05:57→16:56)
[2017-08-22] MEDS: *HR* Enoxaparin 40 MG/0.4 ML SYRINGE SQ SCH (05:57)
[2017-08-22 08:06] LABS: Hematocrit 27.8 % (35.3-44.9); Hemoglobin 8.2 g/dL (11.5-15.4); Mean Corpuscular HGB Conc 29.5 g/dL (31.6-35.5); Mean Corpuscular Hemoglobin 25.2 pg (28.0-33.3); Mean Corpuscular Volume 85.5 fL (83.0-100.0); Mean Platelet Volume 10.3 fL (9.4-12.4); Platelet Count 236 K/mcL (140-400); Red Blood Count 3.25 M/mcL (3.82-4.97); Red Cell Distribution Width 23.2 % (11.5-14.5)
[2017-08-22] MEDS: Fluconazole 100 MG TABLET PO SCH (08:18)
[2017-08-22] MEDS: predniSONE 20 MG TABLET PO SCH (08:18)
[2017-08-22] MEDS: Aspirin 81 MG TAB.CHEW PO SCH (08:18)
[2017-08-22] MEDS: Loratadine 10 MG TABLET PO SCH (08:18)
[2017-08-22] MEDS: Gabapentin 300 MG CAPSULE PO SCH ×2 (08:19→20:53)
[2017-08-22] MEDS: Famotidine 20 MG TABLET PO SCH (08:19)
[2017-08-22] MEDS: Folic Acid 1 MG TABLET PO SCH (08:19)
[2017-08-22] MEDS: ERLOTINIB HCL 100 MG PO SCH (08:20)
[2017-08-22 08:55] LABS: BUN/Creatinine Ratio 28 (6-26); Blood Urea Nitrogen 15 mg/dL (8-23); Calcium 7.5 mg/dL (8.6-10.3); Carbon Dioxide 29 mEq/L (23-29); Chloride 101 mEq/L (98-107); Glucose 138 mg/dL (70-105); Magnesium 1.7 mg/dL (1.6-2.6); Osmolality,Calculated 285 (280-300); Potassium 3.6 mEq/L (3.5-5.1); Sodium 136 mEq/L (136-145); eGFR For African Americans > 60 (> 60); eGFR For Non-African Americans > 60 (> 60)
--- NOTE | 2017-08-22 10:06 | Internal Med Progress Note ---
Date of Encounter: 08/22/17 Time of Encounter: 09:50 - Assessment and plan (1) Acute and chronic respiratory failure Current Visit: Yes Status: Acute Assessment and plan: - Seems to be doing better with diuresis and resuming abx. - Repeat CXR in AM to assess amount of fluid - Continue oxygen supplementation Qualifiers: Respiratory failure complication: hypoxia Qualified Code(s): J96.21 - Acute and chronic respiratory failure with hypoxia (2) Pneumonia Current Visit: Yes Status: Suspected Assessment and plan: Improving with resuming IV Zosyn and Vanc Continue course as ordered Qualifiers: Pneumonia type: due to other aerobic Gram-negative bacteria Laterality: right Lung location: lower lobe of lung Qualified Code(s): J15.6 - Pneumonia due to other Gram-negative bacteria (3) Coronary artery disease Current Visit: No Status: Chronic Assessment and plan: Chronic issue. Qualifiers: Coronary Disease-Associated Artery/Lesion type: [place] artery [place] vs. transplanted heart: [place] heart Associated angina: without angina Qualified Code(s): I25.10 - Atherosclerotic heart disease of [place] coronary artery without angina pectoris (4) Atrial fibrillation Current Visit: No Status: Chronic Assessment and plan: Improved rate Continue home meds. Qualifiers: Atrial fibrillation type: paroxysmal Qualified Code(s): I48.0 - Paroxysmal atrial fibrillation (5) Pleural effusion on right Current Visit: Yes Status: Acute Assessment and plan: Recheck PA and lat CXR in AM to assess amount of fluid (6) SCLC (small cell lung carcinoma) Current Visit: Yes Status: Chronic Assessment and plan: Known history of small cell lung carcinoma. Follows with Dr. Valadez at [place] Currently takes Erlotinib every day Plan Continue management as outpatient Qualifiers: Laterality: right Qualified Code(s): C34.91 - Malignant neoplasm of unspecified part of right bronchus or lung (7) Anemia Current Visit: Yes Status: Chronic Assessment and plan: Most likely related to chronic disease associated with hx of cancer. Following at this time. Qualifiers: Anemia type: other cause Other causes of anemia: chronic disease, neoplastic Qualified Code(s): D63.0 - Anemia in neoplastic disease - Subjective Interval history: Ms Wong is currently admitted for acute resp failure related to pleural effusion and lung cancer with possible pneumonia as well. She remains moderate to high risk due to potential for worsening clinical status. Ms Wong is breathing a little better today. She is less edematous. No fever. Still with some cough. Bowels OK. - Constitutional Vitals: Temp Pulse Resp BP Pulse Ox 97.8 F 93 18 108/63 93 08/22/17 07:28 08/22/17 07:28 08/22/17 07:30 08/22/17 07:28 08/22/17 07:30 General appearance: Present: A&O X 3 - Head Head exam: Present: normocephalic - Eye Eye exam: Present: EOMI, conjuntiva pink - ENT ENT exam: Present: mucous membranes dry - Respiratory Respiratory exam: Present: decreased breath sounds, prolonged expiratory phase, rhonchi, wheezes - Cardiovascular Cardiovascular exam: Present: RRR. Absent: tachycardia - GI/Abdominal GI/Abdominal exam: Present: soft. Absent: tenderness - Extremities Exam Extremities exam: Present: warm Additional comments: Bilateral edema noted. - Neurological Exam Neurological exam: Present: alert, oriented X3 - Skin Skin exam: Present: dry, warm. Absent: rash Internal Medicine: Result - Labs CBC & Chem 7: 08/22/17 07:10 08/22/17 07:10 Labs: Short CBC 08/22/17 Range/Units 07:10 WBC 6.3 (4.3-11.1) K/mcL Hgb 8.2 L (11.5-15.4) g/dL Hct 27.8 L (35.3-44.9) % Plt Count 236 (140-400) K/mcL BMP 08/22/17 07:10 Sodium 136 Potassium 3.6 Chloride 101 Carbon Dioxide 29 BUN 15 Creatinine 0.53 L Glucose 138 H Calcium 7.5 L - ABG Interpretation ABG results: PT/INR, D-dimer PT 13.1 Seconds (9.4-12.1) H 08/19/17 12:32 D-Dimer 4056 ng/mLFEU (0-500) H 08/19/17 12:32 - Impressions Impressions Chest X-Ray 08/21/17 10:41 IMPRESSION: 1. Stable complete homogeneous opacification of right hemithorax with ipsilateral tracheal shift. 2. Left pleural effusion increased from prior. D/ / Brian Bailey MD / Brian Bailey MD Interpreting Provider: Brian Bailey MD Consult Discharge Plan - Plan Referrals: Senait Wong CNP [Primary Care Provider] - 08/26/17 2:40 pm
[2017-08-22] MEDS ORDERED: MOM Conc 10 ML UD.LIQ PO PRN (16:22)
[2017-08-22] MEDS: Metoprolol XL (24 HR) Succ 25 MG TAB.ER.24H PO SCH (20:53)
[2017-08-22] MEDS: Ondansetron 4 MG/2 ML VIAL IVP PRN (21:37)
[2017-08-22] MEDS ORDERED: Levofloxacin 750 MG/150 ML 750 MG/150 ML BAG IVPB SCH (23:00)
[2017-08-23] MEDS: Ipratropium/Albuterol Neb 3 ML IH SCH ×7 (00:01→23:51)
[2017-08-23 05:22] LABS: Hemoglobin 8.9 g/dL (11.5-15.4); Mean Corpuscular Hemoglobin 25.4 pg (28.0-33.3)
[2017-08-23 05:30] LABS: BUN/Creatinine Ratio 27 (6-26); Blood Urea Nitrogen 14 mg/dL (8-23); Calcium 8.2 mg/dL (8.6-10.3); Carbon Dioxide 32 mEq/L (23-29); Chloride 99 mEq/L (98-107); Glucose 101 mg/dL (70-105); Osmolality,Calculated 281 (280-300); Potassium 4.3 mEq/L (3.5-5.1); Sodium 135 mEq/L (136-145); eGFR For African Americans > 60 (> 60); eGFR For Non-African Americans > 60 (> 60)
[2017-08-23 05:58] LABS: Hematocrit 29.9 % (35.3-44.9); Immature Platelets 4.5 % (1.1-6.1); Mean Corpuscular HGB Conc 29.8 g/dL (31.6-35.5); Mean Corpuscular Volume 85.4 fL (83.0-100.0); Mean Platelet Volume 10.1 fL (9.4-12.4); Red Blood Count 3.5 M/mcL (3.82-4.97); Red Cell Distribution Width 23.9 % (11.5-14.5)
[2017-08-23] MEDS: *HR* Enoxaparin 40 MG/0.4 ML SYRINGE SQ SCH (06:13)
[2017-08-23] MEDS: Vancomycin 750 MG in D5% in Water 250 ML IVPB SCH ×2 (06:13→18:06)
[2017-08-23] MEDS: Famotidine 20 MG TABLET PO SCH (08:13)
[2017-08-23] MEDS: Gabapentin 300 MG CAPSULE PO SCH ×2 (08:13→20:22)
[2017-08-23] MEDS: predniSONE 20 MG TABLET PO SCH (08:14)
[2017-08-23] MEDS: Fluconazole 100 MG TABLET PO SCH (08:14)
[2017-08-23] MEDS: Folic Acid 1 MG TABLET PO SCH (08:14)
[2017-08-23] MEDS: Loratadine 10 MG TABLET PO SCH (08:14)
[2017-08-23] MEDS: Aspirin 81 MG TAB.CHEW PO SCH (08:14)
[2017-08-23] MEDS: Metoprolol XL (24 HR) Succ 25 MG TAB.ER.24H PO SCH ×2 (08:14→20:20)
[2017-08-23] MEDS: ERLOTINIB HCL 100 MG PO SCH (08:15)
--- NOTE | 2017-08-23 10:38 | Internal Med Progress Note ---
<Doron Loaiza - Last Filed: 08/23/17 14:04> Date of Encounter: 08/23/17 - Assessment and plan (1) Acute and chronic respiratory failure Current Visit: Yes Status: Acute Qualifiers: Respiratory failure complication: hypoxia Qualified Code(s): J96.21 - Acute and chronic respiratory failure with hypoxia (2) Pneumonia Current Visit: Yes Status: Suspected Qualifiers: Pneumonia type: due to other aerobic Gram-negative bacteria Laterality: right Lung location: lower lobe of lung Qualified Code(s): J15.6 - Pneumonia due to other Gram-negative bacteria (3) Pleural effusion on right Current Visit: Yes Status: Acute (4) Coronary artery disease Current Visit: No Status: Chronic Qualifiers: Coronary Disease-Associated Artery/Lesion type: [place] artery [place] vs. transplanted heart: [place] heart Associated angina: without angina Qualified Code(s): I25.10 - Atherosclerotic heart disease of [place] coronary artery without angina pectoris (5) Atrial fibrillation Current Visit: No Status: Chronic Qualifiers: Atrial fibrillation type: paroxysmal Qualified Code(s): I48.0 - Paroxysmal atrial fibrillation (6) SCLC (small cell lung carcinoma) Current Visit: Yes Status: Chronic Qualifiers: Laterality: right Qualified Code(s): C34.91 - Malignant neoplasm of unspecified part of right bronchus or lung (7) Anemia Current Visit: Yes Status: Chronic Qualifiers: Anemia type: other cause Other causes of anemia: chronic disease, neoplastic Qualified Code(s): D63.0 - Anemia in neoplastic disease - Constitutional Vitals: Temp Pulse Resp BP Pulse Ox 97.2 F L 88 16 101/68 93 08/23/17 11:30 08/23/17 11:30 08/23/17 11:38 08/23/17 11:30 08/23/17 11:38 Internal Medicine: Result - Labs CBC & Chem 7: 08/23/17 04:30 08/23/17 04:30 Labs: Short CBC 08/23/17 Range/Units 04:30 WBC 8.7 (4.3-11.1) K/mcL Hgb 8.9 L (11.5-15.4) g/dL Hct 29.9 L (35.3-44.9) % Plt Count 295 (140-400) K/mcL BMP 08/23/17 04:30 Sodium 135 L Potassium 4.3 Chloride 99 Carbon Dioxide 32 H BUN 14 Creatinine 0.52 L Glucose 101 Calcium 8.2 L - ABG Interpretation ABG results: PT/INR, D-dimer PT 13.1 Seconds (9.4-12.1) H 08/19/17 12:32 D-Dimer 4056 ng/mLFEU (0-500) H 08/19/17 12:32 Consult Discharge Plan - Plan Referrals: Senait Wong, INSURANCE CLAIMS ADJUSTER [Primary Care Provider] - 08/26/17 2:40 pm - Attending Attestation I examined this patient and my medical decision-making was reviewed with the Resident Physician on 08/23/17. I agree with the documented findings, disposition and treatment plan as described except to the extent set forth below. Ms Wong is currently admitted for resp failure and probable pneumonia. She remains moderate to high risk due to potential for worsening clinical status. Ms Wong is up in chair. She is still dyspneic. She is awaiting CXR today. No fever noted. No leukocytosis. Exam alert Mod resp distress at rest Mucus membranes dry Heart distant Lungs with egophony. Some crackles and wheeze on L. Abd soft Edema present I/P 1. Resp failure 2. Pleural effusion - CXR pending. Further diagnoses and plan as above. <Jan Childressn - Last Filed: 08/23/17 15:26> Date of Encounter: 08/23/17 Time of Encounter: 10:36 - Assessment and plan (1) Acute and chronic respiratory failure Current Visit: Yes Status: Acute Assessment and plan: Patient states that she is doing somewhat worse today. -Restart diuresis of Lasix 20 mg every 12 hours -Chest x-ray is currently pending -Continue with current oxygens supplementation. Patient is currently on 4 L. States that she is normally on 3 L at home. Qualifiers: Respiratory failure complication: hypoxia Qualified Code(s): J96.21 - Acute and chronic respiratory failure with hypoxia (2) HCAP (healthcare-associated pneumonia) Current Visit: Yes Status: Acute Assessment and plan: Concern for possible healthcare acquired pneumonia due to patient having a recent admission for similar symptoms. -Antibiotics were deescalated due to the patient seemed to improve however vancomycin and Zosyn were restarted yesterday. We will continue with vancomycin and Zosyn due to the patient stating that she is feeling worse. -Chest x-ray this morning is still pending -Continue with oxygen supplementation. (3) Pleural effusion, right Current Visit: Yes Status: Acute Assessment and plan: Patient has a pleural effusion on the right will obtain a PA and lateral chest x -ray to evaluate the extent of the pleural effusion. Chest x-ray is currently pending (4) Coronary artery disease Current Visit: No Status: Chronic Assessment and plan: This is an on going chronic issue for this patient Qualifiers: Coronary Disease-Associated Artery/Lesion type: [place] artery [place] vs. transplanted heart: [place] heart Associated angina: without angina Qualified Code(s): I25.10 - Atherosclerotic heart disease of [place] coronary artery without angina pectoris (5) Atrial fibrillation Current Visit: No Status: Chronic Assessment and plan: Currently rate controlled Continue with current medical management Qualifiers: Atrial fibrillation type: paroxysmal Qualified Code(s): I48.0 - Paroxysmal atrial fibrillation (6) Anemia Current Visit: Yes Status: Chronic Assessment and plan: Patient has an anemia with a hemoglobin of 8.9. This is likely secondary to chronic disease from her cancer. We will continue to monitor this patient's hemoglobin. Qualifiers: Anemia type: other cause Other causes of anemia: chronic disease, neoplastic Qualified Code(s): D63.0 - Anemia in neoplastic disease (7) SCLC (small cell lung carcinoma) Current Visit: Yes Status: Chronic Assessment and plan: Patient has a known history of small cell lung cancer Patient follows with Dr. Valadez at the [facility]. Qualifiers: Laterality: right Qualified Code(s): C34.91 - Malignant neoplasm of unspecified part of right bronchus or lung - Subjective Interval history: Mrs. Wong states that she feels like her breathing is been getting worse. She states that she felt like it was getting better until about 07:30 this morning. She states after that she feels like she has been having more shortness of breath more difficulty with breathing. She states that she feels like she has been wheezing and coughing more. Still denies any production to her cough. She states that other than the shortness of breath and cough she feels well. - Constitutional Vitals: Temp Pulse Resp BP Pulse Ox 97.7 F 92 16 112/68 99 08/23/17 07:22 08/23/17 07:22 08/23/17 07:22 08/23/17 07:22 08/23/17 07:22 General appearance: Present: A&O X 3 - Head Head exam: Present: atraumatic, normocephalic - Neck Neck exam general surgery: Present: full ROM, supple, trachea midline - Respiratory Respiratory exam: Present: rhonchi Additional comments: Increased work of breathing. - Cardiovascular Cardiovascular exam: Present: RRR, +S1, +S2 - GI/Abdominal GI/Abdominal exam: Present: normal bowel sounds, soft, no peritoneal signs. Absent: distended, tenderness - Extremities Exam Extremities exam: Present: pedal edema (2+ pitting edema bilateral lower extremities) - Neurological Exam Neurological exam: Present: alert, oriented X3, no focal deficits - Psychiatric Psychiatric exam: Present: normal affect, normal mood - Skin Skin exam: Present: dry Additional comments: Skin the patient's neck appeared to be dry and flaky Internal Medicine: Result - Labs CBC & Chem 7: 08/23/17 04:30 08/23/17 04:30 Labs: Short CBC 08/23/17 Range/Units 04:30 WBC 8.7 (4.3-11.1) K/mcL Hgb 8.9 L (11.5-15.4) g/dL Hct 29.9 L (35.3-44.9) % Plt Count 295 (140-400) K/mcL [facility] 08/23/17 04:30 Sodium 135 L Potassium 4.3 Chloride 99 Carbon Dioxide 32 H BUN 14 Creatinine 0.52 L Glucose 101 Calcium 8.2 L - ABG Interpretation ABG results: PT/INR, D-dimer PT 13.1 Seconds (9.4-12.1) H 08/19/17 12:32 D-Dimer 4056 ng/mLFEU (0-500) H 08/19/17 12:32
[2017-08-23] MEDS: Furosemide 20 MG/2 ML VIAL IVP SCH (11:50)
[2017-08-24] MEDS: Furosemide 20 MG/2 ML VIAL IVP SCH ×2 (00:09→09:19)
[2017-08-24] MEDS: Levofloxacin 750 MG/150 ML 750 MG/150 ML BAG IVPB SCH (00:39)
[2017-08-24] MEDS: Ipratropium/Albuterol Neb 3 ML IH SCH ×5 (03:21→20:29)
[2017-08-24] MEDS: Vancomycin 750 MG in D5% in Water 250 ML IVPB SCH (06:32)
[2017-08-24] MEDS: *HR* Enoxaparin 40 MG/0.4 ML SYRINGE SQ SCH (06:32)
[2017-08-24 07:56] LABS: Hematocrit 30.6 % (35.3-44.9); Hemoglobin 8.9 g/dL (11.5-15.4); Mean Corpuscular HGB Conc 29.1 g/dL (31.6-35.5); Mean Corpuscular Hemoglobin 25.6 pg (28.0-33.3); Mean Corpuscular Volume 88.2 fL (83.0-100.0); Mean Platelet Volume 10.1 fL (9.4-12.4); Platelet Count 262 K/mcL (140-400); Red Blood Count 3.47 M/mcL (3.82-4.97); Red Cell Distribution Width 23.8 % (11.5-14.5)
[2017-08-24] MEDS ORDERED: Aminoglycoside Consult 1 EACH MC ONE (08:00)
[2017-08-24 08:39] LABS: BUN/Creatinine Ratio 25 (6-26); Blood Urea Nitrogen 13 mg/dL (8-23); Carbon Dioxide 30 mEq/L (23-29); Chloride 101 mEq/L (98-107); Glucose 92 mg/dL (70-105); Osmolality,Calculated 282 (280-300); Potassium 4.4 mEq/L (3.5-5.1); Sodium 136 mEq/L (136-145); eGFR For African Americans > 60 (> 60); eGFR For Non-African Americans > 60 (> 60)
[2017-08-24] MEDS: Gabapentin 300 MG CAPSULE PO SCH ×2 (09:19→21:18)
[2017-08-24] MEDS: predniSONE 20 MG TABLET PO SCH (09:20)
[2017-08-24] MEDS: Aspirin 81 MG TAB.CHEW PO SCH (09:20)
[2017-08-24] MEDS: Folic Acid 1 MG TABLET PO SCH (09:20)
[2017-08-24] MEDS: Loratadine 10 MG TABLET PO SCH (09:20)
[2017-08-24] MEDS: Metoprolol XL (24 HR) Succ 25 MG TAB.ER.24H PO SCH (09:29)
[2017-08-24] MEDS: ERLOTINIB HCL 100 MG PO SCH (09:30)
[2017-08-24] MEDS: Famotidine 20 MG TABLET PO SCH (09:30)
[2017-08-24 09:47] LABS: Lymphocytes # 0.2 K/mcL (0.6-4.6); Neutrophils # 8.6 K/mcL (1.6-8.9)
[2017-08-24 09:48] LABS: Nucleated Red Blood Cells 1 /100 WBC (0)
[2017-08-24 09:49] LABS: Platelet Estimate Normal (Normal)
[2017-08-24 09:54] LABS: Acanthocytes 1+ (Not Present); Anisocytosis 2+ (Not Present); Ovalocytes 1+ (Not Present); Polychromasia 1+ (Not Present); Schistocytes 1+ (Not Present); Target Cells 1+ (Not Present)
--- NOTE | 2017-08-24 12:54 | Pulmonology Consult Note ---
Date of Encounter: 08/24/17 Time of Encounter: 11:00 Assessment and Plan (1) Pleural effusion, left Current Visit: No Status: Resolved This patient has been having left-sided pleural effusion and she has a thoracentesis revealing Cytology that was done last year. This was nondiagnostic for any malignancy and unfortunately I do not have analysis for the most recent thoracentesis that was done. I suspect this could be secondary to her underlying congestive heart failure and diuresis is appropriate. Revealing chest x-ray there is only minimal pleural fluid and patient does not feel there is increased in size clinically for that reason I explained to her if she feels clinically or if the chest x-ray shows evidence of increasing exercise then we can consider either repeating thoracentesis versus placing catheter and she understand and agree with that. Nurse was presence during interview and examination. Thank you very much for consultation with follow-up as needed and patient can follow-up as outpatient as well. (2) Congestive heart failure Current Visit: No Status: Chronic Patient has been receiving diuresis and would agree with that. Qualifiers: Qualified Code(s): I50.33 - Acute on chronic diastolic (congestive) heart failure History of Present Illness Consult date: 08/24/17 Requesting physician: Doron Loaiza Reason for consult: pleural effusion Chief complaint: Shortness of breath History of present illness: This is a pleasant 72-year-old female with history of lung cancer status post right lobectomy with recurrent pleural effusion in the left side and she also has history of COPD and coronary artery disease with diastolic heart failure. Patient had left-sided thoracentesis and unfortunately I do not have fluid for analysis. Interventional radiology has removed 1 L according to the history and patient stated that she felt better after that. Subsequent chest x-ray shows only minimal pleural effusion. Patient does not feel her fluid is building up. She is also being treated for atrial fibrillation. She had some cough with sputum but denies any hemoptysis and some history of wheezing. Pulmonary consult was consulted for recurrent pleural effusion and possible Pleurx pleural catheter placement. Past Med Surg Social Fam HX - Past Medical History Medical history: atrial fibrillation, cancer, COPD, GERD, myocardial infarction , seizures Psychiatric history: anxiety, depression - Past Surgical History Surgical History: angioplasty/stent, cancer surgery, cholecystectomy - Social History Smoking Status: Former smoker Smokeless Tobacco Status: No Alcohol use: none Drug use: none - Family History Mother Hx Family Cardiac Disorders: Yes Father Hx Family Cardiac Disorders: Yes Medications and Allergies Albuterol Neb [Proventil Neb] 2.5 mg IH Q4HR 05/21/15 [History] Calcium Carbonate [Tums] 500 mg PO DAILY 05/21/15 [History] Docusate [Colace] 100 mg PO BID 05/21/15 [History] Oxygen 2 l NS AD 10/28/16 [History] Clopidogrel [Plavix] 75 mg PO DAILY #30 tablet 01/13/17 [Rx] Ranitidine HCl [Zantac] 150 mg PO BID #180 tablet 02/10/17 [Rx] Atorvastatin [Lipitor] 40 mg PO HS 03/19/17 [History] Folic Acid 1 mg PO DAILY #90 tablet 05/06/17 [Rx] Pantoprazole Sodium [Protonix] 40 mg PO DAILY 05/11/17 [History] Ferrous Sulfate 325 mg PO BID #60 tablet 05/15/17 [Rx] Aspirin 81 mg PO DAILY 07/20/17 [History] Diltiazem [Cardizem] 30 mg PO Q6HR #60 tablet 07/29/17 [Rx] Fluconazole [Diflucan] 100 mg PO DAILY #19 tablet 07/29/17 [Rx] Sucralfate [Carafate] 1 gm PO QID #30 oral.susp 07/29/17 [Rx] Erlotinib HCl [Tarceva] 100 mg PO DAILY 30 Days tablet 08/04/17 [Rx] Furosemide [Lasix] 20 mg PO DAILY #30 tablet 08/11/17 [Rx] Gabapentin [Neurontin] 600 mg PO BID 08/19/17 [History] Loratadine [Allergy Relief] 10 mg PO DAILY 08/19/17 [History] Metoprolol Succinate 12.5 mg PO BID 08/20/17 [History] 3 Allergy/AdvReac Type Severity Reaction Status Date / Time No Known Allergies Allergy Verified 03/19/17 09:01 All Systems: A 10-system review of systems was performed and is negative for pertinent findings except as documented above in the HPI. Physical Examination Vital Signs: Vital Signs, Last 4 Hours Pulse Resp BP Pulse Ox 08/24/17 11:12 99 16 110/62 94 08/24/17 11:07 16 95 General appearance: appears uncomfortable Eyes: nonicteric Mallampati (class): 2 Neck: supple Effort: mildly labored Inspection: other (Surgical changes in the right side) Auscultation: left: rales, right: diminished breath sounds Percussion: bilateral: not dull Cardiovascular: irregular rhythm Gastrointestinal: normoactive bowel sounds Extremities: no cyanosis, edema normal mental status, non-focal exam mood appropriate Results - Laboratory Findings CBC and BMP: 08/24/17 06:01 08/24/17 06:01 PT/INR, D-dimer PT 13.1 Seconds (9.4-12.1) H 08/19/17 12:32 D-Dimer 4056 ng/mLFEU (0-500) H 08/19/17 12:32 Abnormal lab findings: Abnormal lab results RBC 3.47 M/mcL (3.82-4.97) L 08/24/17 06:01 Hgb 8.9 g/dL (11.5-15.4) L 08/24/17 06:01 Hct 30.6 % (35.3-44.9) L 08/24/17 06:01 MCH 25.6 pg (28.0-33.3) L 08/24/17 06:01 MCHC 29.1 g/dL (31.6-35.5) L 08/24/17 06:01 RDW 23.8 % (11.5-14.5) H 08/24/17 06:01 Lymphocytes # 0.2 K/mcL (0.6-4.6) L 08/24/17 06:01 Nucleated RBCs/100 WBC 1 /100 WBC (0) H 08/24/17 06:01 Polychromasia 1+ (Not Present) A 08/24/17 06:01 Anisocytosis 2+ (Not Present) A 08/24/17 06:01 Target Cells 1+ (Not Present) A 08/24/17 06:01 Ovalocytes 1+ (Not Present) A 08/24/17 06:01 Acanthocytes (Spur) 1+ (Not Present) A 08/24/17 06:01 Schistocytes 1+ (Not Present) A 08/24/17 06:01 PT 13.1 Seconds (9.4-12.1) H 08/19/17 12:32 D-Dimer 4056 ng/mLFEU (0-500) H 08/19/17 12:32 VBG pCO2 53 mmHg (41-51) H 08/19/17 12:50 VBG pO2 63 mmHg (25-50) H 08/19/17 12:50 VBG HCO3 29 mEq/L (21-27) H 08/19/17 12:50 Carbon Dioxide 30 mEq/L (23-29) H 08/24/17 06:01 Creatinine 0.51 mg/dL (0.60-1.20) L 08/24/17 06:01 Calcium 8.0 mg/dL (8.6-10.3) L 08/24/17 06:01 Direct Bilirubin 0.4 mg/dL (0.0-0.2) H 08/19/17 12:32 B-Natriuretic Peptide 640 pg/mL (Less than 100) H 08/20/17 00:32 Serum Total Protein 4.7 g/dL (6.4-8.9) L 08/20/17 00:32 Albumin 2.6 g/dL (3.5-5.7) L 08/20/17 00:32 Globulin 2.1 g/dL (2.4-3.5) L 08/20/17 00:32 Urine Bilirubin Small (Negative) H 08/19/17 13:08 Ur Squamous Epith Cells Moderate per lpf (None-Few) H 08/19/17 13:08 - Diagnostic Findings Chest x-ray: report reviewed, image reviewed CT scan - chest: report reviewed, image reviewed - Clinical Findings Intake & Output: Intake & Output 08/23/17 08/24/17 08/24/17 23:59 07:59 15:59 Intake Total 350 / 350 100 / 100 120 / 120 Output Total 200 / 200 0 / 0 Balance 350 / 350 -100 / -100 120 / 120 Weight 51.6 kg Consult Discharge Plan - Plan Referrals: Senait Wong, ARACELI [Primary Care Provider] - 08/26/17 2:40 pm
--- NOTE | 2017-08-24 13:49 | Internal Med Progress Note ---
<Miguel Childress - Last Filed: 08/24/17 15:07> Date of Encounter: 08/24/17 Time of Encounter: 13:47 - Assessment and plan (1) Acute and chronic respiratory failure Current Visit: Yes Status: Acute Assessment and plan: Patient states that she is doing better today Lasix was restarted 1 day ago. Chest x-ray showed A small left pleural effusion is seen with left basilar atelectasis which radiology read as no significant change from previous x-ray. Continue with current oxygens supplementation. Patient is currently on 3L nasal cannula. States that she is normally on 3 L at home. Qualifiers: Respiratory failure complication: hypoxia Qualified Code(s): J96.21 - Acute and chronic respiratory failure with hypoxia (2) HCAP (healthcare-associated pneumonia) Current Visit: Yes Status: Acute Assessment and plan: Concern for possible healthcare acquired pneumonia due to patient having a recent admission for similar symptoms. Antibiotics will be deescalated at this time. Patient has received 5 days of vanomycin, zosyn and levaquin. We will stop the vancomycin and zosyn at this time.We will continue with Levaquin. Most recent chest x-ray showed A small left pleural effusion is seen with left basilar atelectasis Continue with oxygen supplementation. (3) Pleural effusion on left Current Visit: Yes Status: Acute Assessment and plan: Repeat chest x-ray showed A small left pleural effusion is seen with left basilar atelectasis Plan I will give been consulted on this patient did not feel that at this time it was necessary to do a thoracentesis or place the next catheter. They felt that her pleural effusion was likely secondary to congestive heart failure. We will continue to diurese this patient. (4) Congestive heart failure Current Visit: Yes Status: Chronic Assessment and plan: Heart failure with preserved ejection fraction Echo on 05/28 shows LVEF 60% with indeterminate diastolic function. Patient has evidence of volume overload on physical exam. 2+ pitting edema in bilateral lower extremities and ronchi bilaterally. We will continue with diuresis (5) Coronary artery disease Current Visit: No Status: Chronic Assessment and plan: This is an on going chronic issue for this patient Qualifiers: Coronary Disease-Associated Artery/Lesion type: [place] artery [place] vs. transplanted heart: [place] heart Associated angina: without angina Qualified Code(s): I25.10 - Atherosclerotic heart disease of [place] coronary artery without angina pectoris (6) Atrial fibrillation Current Visit: No Status: Chronic Assessment and plan: Currently rate controlled Continue with current medical management Qualifiers: Atrial fibrillation type: paroxysmal Qualified Code(s): I48.0 - Paroxysmal atrial fibrillation (7) Anemia Current Visit: Yes Status: Chronic Assessment and plan: Patient has an anemia with a hemoglobin of 8.9. This is likely secondary to chronic disease from her cancer. We will continue to monitor this patient's hemoglobin. Qualifiers: Anemia type: other cause Other causes of anemia: chronic disease, neoplastic Qualified Code(s): D63.0 - Anemia in neoplastic disease (8) Non-small cell lung cancer Current Visit: Yes Status: Chronic Assessment and plan: Patient has a known history of non-small cell lung cancer Patient follows with Dr. Valadez at the [facility]. Qualifiers: Laterality: left Qualified Code(s): C34.92 - Malignant neoplasm of unspecified part of left bronchus or lung - Subjective Interval history: Mrs. Wong states that she feels like her breathing is been getting better. Patient states that her shortness of breath is significantly improved. States that she is having minimal cough and is not coughing anything up at this time. She states that otherwise she is feeling well. States that she is almost back to her baseline at this time. - Constitutional Vitals: Temp Pulse Resp BP Pulse Ox 97.6 F 99 16 110/62 94 08/24/17 07:18 08/24/17 11:12 08/24/17 11:12 08/24/17 11:12 08/24/17 11:12 General appearance: Present: A&O X 3, no acute distress - Head Head exam: Present: atraumatic, normocephalic - Neck Neck exam general surgery: Present: full ROM, normal inspection, trachea midline - Respiratory Respiratory exam: Present: rhonchi (Bilaterally) - Cardiovascular Cardiovascular exam: Present: RRR, +S1, +S2 - GI/Abdominal GI/Abdominal exam: Present: normal bowel sounds, soft, no peritoneal signs. Absent: distended, tenderness - Extremities Exam Extremities exam: Present: pedal edema (2+ pitting edema bilateral lower extremities) - Neurological Exam Neurological exam: Present: oriented X3, no focal deficits. Absent: facial droop, speech deficit - Psychiatric Psychiatric exam: Present: normal affect, normal mood - Skin Skin exam: Present: dry, warm (Flaking of dry skin on her back) Internal Medicine: Result - Labs CBC & Chem 7: 08/24/17 06:01 08/24/17 06:01 Labs: Short CBC 08/24/17 Range/Units 06:01 WBC 9.8 (4.3-11.1) K/mcL Hgb 8.9 L (11.5-15.4) g/dL Hct 30.6 L (35.3-44.9) % Plt Count 262 (140-400) K/mcL Neutrophils # 8.6 (1.6-8.9) K/mcL BMP 08/24/17 06:01 Sodium 136 Potassium 4.4 Chloride 101 Carbon Dioxide 30 H BUN 13 Creatinine 0.51 L Glucose 92 Calcium 8.0 L - ABG Interpretation ABG results: PT/INR, D-dimer PT 13.1 Seconds (9.4-12.1) H 08/19/17 12:32 D-Dimer 4056 ng/mLFEU (0-500) H 08/19/17 12:32 - Impressions Impressions Chest X-Ray 08/23/17 07:00 IMPRESSION: No significant change from the prior exam. D/ / Artem Encarnacion MD / Artem Encarnacion MD Interpreting Provider: Artem Encarnacion MD Consult Discharge Plan - Plan Referrals: Senait Wong, ARACELI [Primary Care Provider] - 08/26/17 2:40 pm <Jermaine Barnes H - Last Filed: 08/24/17 15:25> Date of Encounter: 08/24/17 - Constitutional Vitals: Temp Pulse Resp BP Pulse Ox 97.6 F 99 16 110/62 94 08/24/17 07:18 08/24/17 11:12 08/24/17 11:12 08/24/17 11:12 08/24/17 11:12 Internal Medicine: Result - Labs CBC & Chem 7: 08/24/17 06:01 08/24/17 06:01 Labs: Short CBC 08/24/17 Range/Units 06:01 WBC 9.8 (4.3-11.1) K/mcL Hgb 8.9 L (11.5-15.4) g/dL Hct 30.6 L (35.3-44.9) % Plt Count 262 (140-400) K/mcL Neutrophils # 8.6 (1.6-8.9) K/mcL BMP 08/24/17 06:01 Sodium 136 Potassium 4.4 Chloride 101 Carbon Dioxide 30 H BUN 13 Creatinine 0.51 L Glucose 92 Calcium 8.0 L - ABG Interpretation ABG results: PT/INR, D-dimer PT 13.1 Seconds (9.4-12.1) H 08/19/17 12:32 D-Dimer 4056 ng/mLFEU (0-500) H 08/19/17 12:32 - Impressions Impressions Chest X-Ray 08/23/17 07:00 IMPRESSION: No significant change from the prior exam. D/ / Artem Encarnacion MD / Artem Encarnacion MD Interpreting Provider: Artem Encarnacion MD - Attending Attestation Acute on chronic hypoxic respiratory failure secondary to acute diastolic CHF exacerbation with chronic pleural effusions, right lung field is chronically colten out possibly related to non-small cell cancer Thoracentesis to be considered, pulmonary recommendations appreciated Continue Levaquin alone day #5 I examined this patient and my medical decision-making was reviewed with the Resident Physician. I agree with the documented findings, disposition and treatment plan as described except to the extent set forth below.
[2017-08-25] MEDS: Ipratropium/Albuterol Neb 3 ML IH SCH ×7 (00:12→23:47)
[2017-08-25] MEDS: Metoprolol XL (24 HR) Succ 25 MG TAB.ER.24H PO SCH ×3 (00:26→21:39)
[2017-08-25] MEDS: Furosemide 20 MG/2 ML VIAL IVP SCH ×3 (00:26→21:39)
[2017-08-25] MEDS: Levofloxacin 750 MG/150 ML 750 MG/150 ML BAG IVPB SCH (01:05)
[2017-08-25 04:44] LABS: Basophils % 0.1 %; Hemoglobin 8.6 g/dL (11.5-15.4); Red Cell Distribution Width 23.9 % (11.5-14.5)
[2017-08-25 04:45] LABS: Hematocrit 29.3 % (35.3-44.9); Immature Granulocytes % 0.4 % (0-4); Lymphocytes # 1.1 K/mcL (0.6-4.6); Lymphocytes % 11.2 %; Mean Corpuscular HGB Conc 29.4 g/dL (31.6-35.5); Mean Corpuscular Hemoglobin 25.4 pg (28.0-33.3); Mean Corpuscular Volume 86.4 fL (83.0-100.0); Mean Platelet Volume 10.4 fL (9.4-12.4); Monocytes % 10.3 %; Neutrophils # 7.4 K/mcL (1.6-8.9); Platelet Count 262 K/mcL (140-400); Red Blood Count 3.39 M/mcL (3.82-4.97)
[2017-08-25 05:00] LABS: BUN/Creatinine Ratio 29 (6-26); Blood Urea Nitrogen 14 mg/dL (8-23); Calcium 8.1 mg/dL (8.6-10.3); Carbon Dioxide 32 mEq/L (23-29); Chloride 101 mEq/L (98-107); Glucose 113 mg/dL (70-105); Osmolality,Calculated 285 (280-300); Potassium 4.2 mEq/L (3.5-5.1); Sodium 137 mEq/L (136-145); eGFR For African Americans > 60 (> 60); eGFR For Non-African Americans > 60 (> 60)
[2017-08-25 05:13] LABS: Anisocytosis 3+ (Not Present); Macrocytosis Present (Not Present); Microcytosis Present (Not Present); Platelet Estimate Normal (Normal); Poikilocytosis 1+ (Not Present); Schistocytes 1+ (Not Present); Target Cells 1+ (Not Present)
[2017-08-25] MEDS: *HR* Enoxaparin 40 MG/0.4 ML SYRINGE SQ SCH (06:22)
[2017-08-25] MEDS: Famotidine 20 MG TABLET PO SCH (08:53)
[2017-08-25] MEDS: Gabapentin 300 MG CAPSULE PO SCH ×2 (08:53→21:39)
[2017-08-25] MEDS: Loratadine 10 MG TABLET PO SCH (08:54)
[2017-08-25] MEDS: Folic Acid 1 MG TABLET PO SCH (08:54)
[2017-08-25] MEDS: Aspirin 81 MG TAB.CHEW PO SCH (08:54)
[2017-08-25] MEDS: predniSONE 20 MG TABLET PO SCH (08:55)
[2017-08-25] MEDS: Ondansetron 4 MG/2 ML VIAL IVP PRN ×2 (10:13→17:38)
[2017-08-25] MEDS: ERLOTINIB HCL 100 MG PO SCH (11:38)
--- NOTE | 2017-08-25 13:39 | Internal Med Progress Note ---
<Miguel Childress - Last Filed: 08/25/17 14:38> Date of Encounter: 08/25/17 Time of Encounter: 13:35 - Assessment and plan (1) Acute and chronic respiratory failure Current Visit: Yes Status: Acute Assessment and plan: Acute on chronic hypoxic respiratory failure secondary to acute diastolic CHF exacerbation with chronic pleural effusions, right lung field is chronically colten out possibly related to non-small cell cancer Patient states that she is doing better today Lasix was restarted 2 day ago. most recent chest x-ray showed A small left pleural effusion is seen with left basilar atelectasis which radiology read as no significant change from previous x-ray. Continue with current oxygen supplementation. Patient is currently on 3L nasal cannula. States that she is normally on 3 L at home. Qualifiers: Respiratory failure complication: hypoxia Qualified Code(s): J96.21 - Acute and chronic respiratory failure with hypoxia (2) HCAP (healthcare-associated pneumonia) Current Visit: Yes Status: Acute Assessment and plan: Concern for possible healthcare acquired pneumonia due to patient having a recent admission for similar symptoms. Antibiotics will be deescalated at this time. Patient has received 5 days of vanomycin, zosyn and levaquin. We will stop the vancomycin and zosyn at this time. We will continue with Levaquin. Most recent chest x-ray showed A small left pleural effusion is seen with left basilar atelectasis Continue with oxygen supplementation. (3) Pleural effusion on left Current Visit: Yes Status: Acute Assessment and plan: Most recent chest x-ray showed A small left pleural effusion is seen with left basilar atelectasis Pulmonology has been consulted on this patient did not feel that at this time it was necessary to do a thoracentesis or place the next catheter. They felt that her pleural effusion was likely secondary to congestive heart failure. We will continue to diurese this patient. (4) Congestive heart failure Current Visit: Yes Status: Chronic Assessment and plan: Heart failure with preserved ejection fraction Echo on 05/28 shows LVEF 60% with indeterminate diastolic function. Patient has evidence of volume overload on physical exam. 2+ pitting edema We will continue with diuresis (5) Coronary artery disease Current Visit: No Status: Chronic Assessment and plan: This is an on going chronic issue for this patient Qualifiers: Coronary Disease-Associated Artery/Lesion type: [place] artery [place] vs. transplanted heart: [place] heart Associated angina: without angina Qualified Code(s): I25.10 - Atherosclerotic heart disease of [place] coronary artery without angina pectoris (6) Atrial fibrillation Current Visit: No Status: Chronic Assessment and plan: Currently rate controlled Continue with current medical management Qualifiers: Atrial fibrillation type: paroxysmal Qualified Code(s): I48.0 - Paroxysmal atrial fibrillation (7) Anemia Current Visit: Yes Status: Chronic Assessment and plan: Patient has an anemia with a hemoglobin of 8.6 decreased from 8.9 yesterday This is likely secondary to chronic disease from her cancer. We will continue to monitor this patient's hemoglobin. Qualifiers: Anemia type: other cause Other causes of anemia: chronic disease, neoplastic Qualified Code(s): D63.0 - Anemia in neoplastic disease (8) Non-small cell lung cancer Current Visit: Yes Status: Chronic Qualifiers: Laterality: left Qualified Code(s): C34.92 - Malignant neoplasm of unspecified part of left bronchus or lung - Subjective Interval history: Mrs. Wong states that she feels like her breathing is been getting better. States that she is having minimal cough and has coughed up a small amount of blood in her phlegm. Patient states that she is feeling "rough" today. States that she has vomited a couple of times this morning without any blood in her vomit. States that she is almost back to her baseline at this time in regards to her breathing. Patient also states that she has a history of ulcers in her esophagus as well as a possible narrowing or stricture of her esophagus. - Constitutional Vitals: Temp Pulse Resp BP Pulse Ox 97.8 F 87 16 98/58 96 08/25/17 11:26 08/25/17 11:26 08/25/17 11:26 08/25/17 11:26 08/25/17 11:26 General appearance: Present: A&O X 3, no acute distress - Head Head exam: Present: atraumatic, normocephalic - Neck Neck exam general surgery: Present: full ROM, normal inspection, trachea midline - Respiratory Respiratory exam: Present: CTAB. Absent: rhonchi, wheezes - Cardiovascular Cardiovascular exam: Present: RRR, +S1, +S2. Absent: diastolic murmur, gallop, rubs, systolic murmur - GI/Abdominal GI/Abdominal exam: Present: normal bowel sounds, soft, no peritoneal signs. Absent: distended, tenderness - Extremities Exam Extremities exam: Present: pedal edema (2+ pitting edema bilateral lower extremities.) - Neurological Exam Neurological exam: Present: oriented X3, no focal deficits. Absent: facial droop, speech deficit - Skin Skin exam: Present: dry, intact Additional comments: Flaking of the skin on the patients back Internal Medicine: Result - Labs CBC & Chem 7: 08/25/17 04:19 08/25/17 04:19 Labs: Short CBC 08/25/17 Range/Units 04:19 WBC 9.5 (4.3-11.1) K/mcL Hgb 8.6 L (11.5-15.4) g/dL Hct 29.3 L (35.3-44.9) % Plt Count 262 (140-400) K/mcL Neutrophils # 7.4 (1.6-8.9) K/mcL BMP 08/25/17 04:19 Sodium 137 Potassium 4.2 Chloride 101 Carbon Dioxide 32 H BUN 14 Creatinine 0.49 L Glucose 113 H Calcium 8.1 L - ABG Interpretation ABG results: PT/INR, D-dimer PT 13.1 Seconds (9.4-12.1) H 08/19/17 12:32 D-Dimer 4056 ng/mLFEU (0-500) H 08/19/17 12:32 Consult Discharge Plan - Plan Referrals: Senait Wong, INTERIOR DECORATOR [Primary Care Provider] - 08/26/17 2:40 pm <Jermaine Barnes H - Last Filed: 08/25/17 14:42> Date of Encounter: 08/25/17 - Constitutional Vitals: Temp Pulse Resp BP Pulse Ox 97.8 F 87 16 98/58 96 08/25/17 11:26 08/25/17 11:26 08/25/17 11:26 08/25/17 11:26 08/25/17 11:26 Internal Medicine: Result - Labs CBC & Chem 7: 08/25/17 04:19 08/25/17 04:19 Labs: Short CBC 08/25/17 Range/Units 04:19 WBC 9.5 (4.3-11.1) K/mcL Hgb 8.6 L (11.5-15.4) g/dL Hct 29.3 L (35.3-44.9) % Plt Count 262 (140-400) K/mcL Neutrophils # 7.4 (1.6-8.9) K/mcL BMP 08/25/17 04:19 Sodium 137 Potassium 4.2 Chloride 101 Carbon Dioxide 32 H BUN 14 Creatinine 0.49 L Glucose 113 H Calcium 8.1 L - ABG Interpretation ABG results: PT/INR, D-dimer PT 13.1 Seconds (9.4-12.1) H 08/19/17 12:32 D-Dimer 4056 ng/mLFEU (0-500) H 08/19/17 12:32 - Attending Attestation Acute on chronic hypoxic respiratory failure secondary to acute diastolic CHF exacerbation with chronic pleural effusions, right lung field is chronically colten out possibly related to non-small cell cancer Thoracentesis to be considered, pulmonary recommendations appreciated Continue Levaquin alone day #6 Lasix IV BID history of possible esophageal strictures not able to be dilated due to esophageal ulcers ( has been vomiting constantly) start protonix , GI consult I examined this patient and my medical decision-making was reviewed with the Resident Physician. I agree with the documented findings, disposition and treatment plan as described except to the extent set forth below.
[2017-08-25] MEDS: Pantoprazole 40 MG VIAL IVP SCH ×2 (16:02→21:37)
[2017-08-25] MEDS ORDERED: 0.9 % Sodium Chloride 250 ML IVC ONE (19:32)
[2017-08-25] MEDS ORDERED: Metoclopramide 10 MG/2 ML VIAL IVP ONE (19:32)
[2017-08-26] MEDS: Levofloxacin 750 MG/150 ML 750 MG/150 ML BAG IVPB SCH (00:47)
[2017-08-26] MEDS: Ipratropium/Albuterol Neb 3 ML IH SCH ×4 (03:41→15:21)
[2017-08-26 04:32] LABS: Basophils % 0.1 %; Eosinophils % 0.1 %; Hemoglobin 8.6 g/dL (11.5-15.4); Immature Granulocytes % 0.6 % (0-4); Lymphocytes # 1.3 K/mcL (0.6-4.6); Mean Corpuscular HGB Conc 29.7 g/dL (31.6-35.5); Mean Corpuscular Hemoglobin 25.7 pg (28.0-33.3); Mean Corpuscular Volume 86.6 fL (83.0-100.0); Mean Platelet Volume 9.7 fL (9.4-12.4); Monocytes % 10.6 %; Neutrophils # 6.7 K/mcL (1.6-8.9); Platelet Count 228 K/mcL (140-400); Red Blood Count 3.35 M/mcL (3.82-4.97); Red Cell Distribution Width 23.9 % (11.5-14.5); Segmented Neutrophils % 74.6 %
[2017-08-26 05:04] LABS: BUN/Creatinine Ratio 31 (6-26); Blood Urea Nitrogen 15 mg/dL (8-23); Calcium 8.3 mg/dL (8.6-10.3); Carbon Dioxide 33 mEq/L (23-29); Chloride 102 mEq/L (98-107); Glucose 83 mg/dL (70-105); Osmolality,Calculated 288 (280-300); Potassium 4.2 mEq/L (3.5-5.1); Sodium 139 mEq/L (136-145); eGFR For African Americans > 60 (> 60); eGFR For Non-African Americans > 60 (> 60)
[2017-08-26 05:22] LABS: Anisocytosis 1+ (Not Present); Platelet Estimate Normal (Normal); Poikilocytosis 1+ (Not Present); Schistocytes 1+ (Not Present)
--- NOTE | 2017-08-26 08:37 | Internal Med Progress Note ---
<Miguel Childress - Last Filed: 08/26/17 13:38> Date of Encounter: 08/26/17 Time of Encounter: 08:34 - Assessment and plan (1) Acute and chronic respiratory failure Current Visit: Yes Status: Acute Assessment and plan: Acute on chronic hypoxic respiratory failure secondary to acute diastolic CHF exacerbation with chronic pleural effusions, right lung field is chronically colten out possibly related to non-small cell cancer Patient states that she is doing better today from a respiratory standpoint Lasix was restarted 3 day ago. most recent chest x-ray showed A small left pleural effusion is seen with left basilar atelectasis which radiology read as no significant change from previous x-ray. Continue with current oxygen supplementation. Patient is currently on 3L nasal cannula. States that she is normally on 3 L at home. Qualifiers: Respiratory failure complication: hypoxia Qualified Code(s): J96.21 - Acute and chronic respiratory failure with hypoxia (2) HCAP (healthcare-associated pneumonia) Current Visit: Yes Status: Acute Assessment and plan: Concern for possible healthcare acquired pneumonia due to patient having a recent admission for similar symptoms. Antibiotics will be deescalated at this time. Patient has received 5 days of vanomycin, zosyn and levaquin. We will stop the vancomycin and zosyn at this time. We will continue with Levaquin day #7 Most recent chest x-ray showed A small left pleural effusion is seen with left basilar atelectasis Continue with oxygen supplementation. (3) Pericardial effusion Current Visit: Yes Status: Acute Assessment and plan: CTA of chest showed a pericardial effusion Consult to cardiothoracic surgery Consult to cardiology (4) Pleural effusion on left Current Visit: Yes Status: Acute Assessment and plan: Most recent chest x-ray showed A small left pleural effusion is seen with left basilar atelectasis Pulmonology has been consulted on this patient did not feel that at this time it was necessary to do a thoracentesis or place the next catheter. They felt that her pleural effusion was likely secondary to congestive heart failure. We will continue to diurese this patient. (5) Congestive heart failure Current Visit: Yes Status: Chronic Assessment and plan: Heart failure with preserved ejection fraction Echo on 05/28 shows LVEF 60% with indeterminate diastolic function. Patient has evidence of volume overload on physical exam. 2+ pitting edema We will continue with diuresis (6) Coronary artery disease Current Visit: No Status: Chronic Assessment and plan: This is an on going chronic issue for this patient Qualifiers: Coronary Disease-Associated Artery/Lesion type: [place] artery [place] vs. transplanted heart: [place] heart Associated angina: without angina Qualified Code(s): I25.10 - Atherosclerotic heart disease of [place] coronary artery without angina pectoris (7) Atrial fibrillation Current Visit: No Status: Chronic Assessment and plan: Currently rate controlled Continue with current medical management Qualifiers: Atrial fibrillation type: paroxysmal Qualified Code(s): I48.0 - Paroxysmal atrial fibrillation (8) Anemia Current Visit: Yes Status: Chronic Assessment and plan: Patient has an anemia with a hemoglobin of 8.6 unchanged from yesterday This is likely secondary to chronic disease from her cancer. We will continue to monitor this patient's hemoglobin. Qualifiers: Anemia type: other cause Other causes of anemia: chronic disease, neoplastic Qualified Code(s): D63.0 - Anemia in neoplastic disease (9) Non-small cell lung cancer Current Visit: Yes Status: Chronic Assessment and plan: Patient has a known history of non-small cell lung cancer Patient follows with Dr. Valadez at the [facility]. Qualifiers: Laterality: left Qualified Code(s): C34.92 - Malignant neoplasm of unspecified part of left bronchus or lung (10) Vomiting Current Visit: Yes Status: Acute Assessment and plan: Patient states that she has been having vomiting after she eats Patient states that she has a history of esophageal ulcer and possibly narrowing or stricture of her esophagus. Patient has been started on Protonix and GI has been consult. We will await GIs recommendations at this time. Patient NPO per GI orders Qualifiers: Vomiting type: unspecified Vomiting Intractability: non-intractable Nausea presence: with nausea Qualified Code(s): R11.2 - Nausea with vomiting, unspecified (11) Hemoptysis Current Visit: Yes Status: Acute Assessment and plan: Due to the patient having hemoptysis, tachycardia and hypoxia we will obtain a CTA of the chest to rule out possible PE CTA of the chest was negative for pulmonary embolus - Time Spent With Patient 25 - 35 minutes - Subjective Interval history: Mrs. Wong states that she feels like her breathing is been getting better. States that she is having minimal cough that is nonproductive and has had no blood in her sputum today.. Patient states that she is feeling "rough" today. Patient denies any vomiting this morning. States that she is almost back to her baseline at this time in regards to her breathing. Patient also states that she has a history of ulcers in her esophagus as well as a possible narrowing or stricture of her esophagus. Family states that they think they were seen by neurology last night and may be going for a scope today. - Constitutional Vitals: Temp Pulse Resp BP Pulse Ox 97.5 F L 104 16 85/54 92 08/26/17 06:22 08/26/17 06:22 08/26/17 08:15 08/26/17 06:22 08/26/17 08:15 General appearance: Present: A&O X 3, no acute distress - Head Head exam: Present: atraumatic, normocephalic - Neck Neck exam general surgery: Present: full ROM, normal inspection, trachea midline - Respiratory Respiratory exam: Present: CTAB. Absent: rhonchi, wheezes - Cardiovascular Cardiovascular exam: Present: RRR, +S1, +S2. Absent: diastolic murmur, gallop, rubs, systolic murmur - GI/Abdominal GI/Abdominal exam: Present: normal bowel sounds, soft, no peritoneal signs. Absent: distended, tenderness - Extremities Exam Extremities exam: Present: pedal edema (2+ pitting edema bilateral lower extremity is.) - Neurological Exam Neurological exam: Present: oriented X3, no focal deficits. Absent: facial droop, speech deficit - Psychiatric Psychiatric exam: Present: normal affect, normal mood - Skin Skin exam: Present: dry, intact, warm Internal Medicine: Result - Labs CBC & Chem 7: 08/26/17 04:12 08/26/17 04:12 Labs: Short CBC 08/26/17 Range/Units 04:12 WBC 9.0 (4.3-11.1) K/mcL Hgb 8.6 L (11.5-15.4) g/dL Hct 29.0 L (35.3-44.9) % Plt Count 228 (140-400) K/mcL Neutrophils # 6.7 (1.6-8.9) K/mcL BMP 08/26/17 04:12 Sodium 139 Potassium 4.2 Chloride 102 Carbon Dioxide 33 H BUN 15 Creatinine 0.48 L Glucose 83 Calcium 8.3 L - ABG Interpretation ABG results: PT/INR, D-dimer PT 13.1 Seconds (9.4-12.1) H 08/19/17 12:32 D-Dimer 4056 ng/mLFEU (0-500) H 08/19/17 12:32 - VTE Documentation of Mechanical Device: Intermittent pneumatic compression device Consult Discharge Plan - Plan Referrals: Senait Wong, HOME CARE RN [Primary Care Provider] - 08/26/17 2:40 pm <Jermaine Barnes - Last Filed: 08/26/17 14:46> Date of Encounter: 08/26/17 - Constitutional Vitals: Temp Pulse Resp BP Pulse Ox 97.5 F L 107 16 85/72 93 08/26/17 11:42 08/26/17 11:42 08/26/17 11:42 08/26/17 11:42 08/26/17 11:42 Internal Medicine: Result - Labs CBC & Chem 7: 08/26/17 04:12 08/26/17 04:12 Labs: Short CBC 08/26/17 Range/Units 04:12 WBC 9.0 (4.3-11.1) K/mcL Hgb 8.6 L (11.5-15.4) g/dL Hct 29.0 L (35.3-44.9) % Plt Count 228 (140-400) K/mcL Neutrophils # 6.7 (1.6-8.9) K/mcL BMP 08/26/17 04:12 Sodium 139 Potassium 4.2 Chloride 102 Carbon Dioxide 33 H BUN 15 Creatinine 0.48 L Glucose 83 Calcium 8.3 L - ABG Interpretation ABG results: PT/INR, D-dimer PT 13.1 Seconds (9.4-12.1) H 08/19/17 12:32 D-Dimer 4056 ng/mLFEU (0-500) H 08/19/17 12:32 - Impressions Impressions Chest CTA 08/26/17 10:05 IMPRESSION: 1. No findings of pulmonary embolism. 2. Persistent complete collapse of the right upper lobe status post right middle and right lower lobectomies. There has been gradual decrease in enhancement of the collapsed right upper lobe, potentially due to technique or necrosis. Associated mucous plugging could be present. 3. Suspicion for ill-defined soft tissue in the region of the right hilum, extending toward the bifurcation of the right pulmonary artery, which demonstrates persistent abrupt narrowing. 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 The findings are concerning for disease recurrence in could be better evaluated with a routine contrast-enhanced chest CT on a nonemergent basis. 4. Increased peribronchovascular reticular and groundglass opacities in the left lung, potentially infection, inflammation, or edema. None NGT carcinomatosis is considered less likely. 5. Suspected esophagitis involving the mid thoracic esophagus. 6. Findings suggestive of pulmonary hypertension. 7. Persistent large pericardial effusion. Underlying tamponade is not excluded. 8. Persistent large left pleural effusion and moderate to severe anasarca. 9. 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 D/ / Santos Quezada MD / Santos Quezada MD Interpreting Provider: Santos Quezada MD - Attending Attestation Acute on chronic hypoxic respiratory failure secondary to acute diastolic CHF exacerbation with chronic pleural effusions, right lung field is chronically colten out possibly related to non-small cell cancer CT scan of the chest showed a large pericardial effusion Cardiology input cardiothoracic surgery have been consulted Continue Levaquin alone day #7 Lasix IV BID history of possible esophageal strictures not able to be dilated due to esophageal ulcers ( has been vomiting constantly) protonix , endoscopy will be deferred to a later time I examined this patient and my medical decision-making was reviewed with the Resident Physician. I agree with the documented findings, disposition and treatment plan as described except to the extent set forth below.
[2017-08-26] MEDS ORDERED: 0.9 % Sodium Chloride 250 ML IVC ONE (09:59)
[2017-08-26] MEDS ORDERED: 0.9 % Sodium Chloride 250 ML ONE (11:59)
[2017-08-26] MEDS ORDERED: Metoprolol XL (24 HR) Succ 25 MG TAB.ER.24H PO SCH (12:00)
[2017-08-26] MEDS: Aspirin 81 MG TAB.CHEW PO SCH (12:03)
[2017-08-26] MEDS: Folic Acid 1 MG TABLET PO SCH (12:03)
[2017-08-26] MEDS: Loratadine 10 MG TABLET PO SCH (12:03)
[2017-08-26] MEDS: Gabapentin 300 MG CAPSULE PO SCH ×2 (12:03→22:14)
[2017-08-26] MEDS: Famotidine 20 MG TABLET PO SCH (12:04)
[2017-08-26] MEDS: predniSONE 20 MG TABLET PO SCH (12:04)
[2017-08-26] MEDS: ERLOTINIB HCL 100 MG PO SCH (12:04)
[2017-08-26] MEDS: Furosemide 20 MG/2 ML VIAL IVP SCH (12:05)
[2017-08-26] MEDS: Pantoprazole 40 MG VIAL IVP SCH ×2 (12:12→22:14)
[2017-08-26] MEDS ORDERED: *HR* Dextrose 50 % in Water (Syg) 50 ML SYRINGE ONE (12:37)
[2017-08-26] MEDS: *HR* Dextrose 50 % in Water (Syg) 50 ML SYRINGE IVP ONE ×2 (12:38→13:49)
[2017-08-26] MEDS: 0.9 % Sodium Chloride 500 ML ONE (13:50)
--- NOTE | 2017-08-26 14:02 | Gastroenterology Consult Note ---
<Paulette Roberts - Last Filed: 08/26/17 13:53> Date of Encounter: 08/26/17 Time of Encounter: 11:30 - Assessment and plan (1) Anemia Current Visit: Yes Status: Chronic Assessment and plan: Pt is having hematemesis. Will proceed with EGD today. She has a history of severe radiation esophagitis. She is continued on protonix and carafate. Qualifiers: Anemia type: other cause Other causes of anemia: chronic disease, neoplastic Qualified Code(s): D63.0 - Anemia in neoplastic disease (2) Non-small cell lung cancer Current Visit: Yes Status: Chronic Assessment and plan: S/p XRT, s/p thoracentesis. Qualifiers: Laterality: left Qualified Code(s): C34.92 - Malignant neoplasm of unspecified part of left bronchus or lung - Time Spent With Patient Total time spent is greater than 50% in coordination of care (as documented) at patient's floor/unit and/or counseling patient: GI History of Present Illness - Data of Consult Patient: known to practice within the last 3 years Consult date: 08/26/17 Requesting Physician: Jermaine Barnes - Consult Narrative Reason for consult: anemia History of present illness: Ms. Wong is a 72 year old female with history of lung cancer status post right lobectomy with a recurrent pleural effusion, patient also has history of atrial fibrillation, high cholesterol, COPD, CAD has had 5 stents, seizure disorder, diastolic heart failure, anxiety and depression. She was recently hospitalized and presnted back with shortness of breath and O2 saturation of 70% . Patient arrived very hypoxic evaluation has CTA which show pneumonia was given vancomycin and Zosyn and Levaquin also large left pleural effusion . She is status post thoracentesis. She had a-fib with RVR and started on cardizem. She has a history of lung cancer, is status post right lower lobectomy and XRT. She is currently on Tarceva. She had EGD due to complaints of longstanding dysphagia and odynophagia, 07/29 .showed severe radiation esophagitis and thrush. She had EGD with Dr Stubbs 05/28 which showed esophageal ulcer and esophagitis. She has been on carafate and protonix at home and was treated with diflucan. Labs show a hgb of 8.9. She reports nausea with dark red emesis with clots for the past 2 days. She denies bloody, dark or tarry stools. Colonoscopy: 06/25 diverticulsosis ([facility] needs repeated in 2019) EGD: 07/29 severe radiation esophagitis and thrush NSAIDS/ASA: baby asa Anticoagulants: plavix was stopped due to brain mets and anemia Past Med Surg Social Fam HX - Past Medical History Medical history: atrial fibrillation, cancer, COPD, GERD, myocardial infarction , seizures Psychiatric history: anxiety, depression - Past Surgical History Surgical History: angioplasty/stent, cancer surgery, cholecystectomy - Social History Smoking Status: Former smoker Smokeless Tobacco Status: No Alcohol use: none Drug use: none - Family History Mother Hx Family Cardiac Disorders: Yes Father Hx Family Cardiac Disorders: Yes Review of Systems: GI: as per [employer] [facility]: denies fever, has some chills EYES: denies yellow discoloration ENT: chronic difficulty swallowing CARDIO: denies chest pain, palpitations RESP: Shortness of breath with exertion : denies change in color of urine NEURO: weakness HEME: Denies any bruising MS: chronic joint pain DERM: denies rash or itching PSYCH: Denies history of anxiety or depression - Constitutional Vitals: Temp Pulse Resp BP Pulse Ox 97.5 F L 107 16 85/72 93 08/26/17 11:42 08/26/17 11:42 08/26/17 11:42 08/26/17 11:42 08/26/17 11:42 Results - Labs CBC & Chem 7: 08/26/17 04:12 08/26/17 04:12 Labs: Last Result Calcium 8.3 mg/dL (8.6-10.3) L 08/26/17 04:12 Troponin I < 0.03 ng/mL (< 0.04) 08/20/17 06:05 Entire Visit Hgb 8.6 g/dL (11.5-15.4) L 08/26/17 04:12 Hct 29.0 % (35.3-44.9) L 08/26/17 04:12 PT 13.1 Seconds (9.4-12.1) H 08/19/17 12:32 Total Bilirubin 0.9 mg/dL (0.3-1.0) 02/09/18 00:32 AST 20 Units/L (13-39) 08/20/17 00:32 ALT 12 Units/L (7-52) 08/20/17 00:32 - ABG ABG results: PT/INR, D-dimer PT 13.1 Seconds (9.4-12.1) H 08/19/17 12:32 D-Dimer 4056 ng/mLFEU (0-500) H 08/19/17 12:32 - Impressions Impressions Chest CTA 08/26/17 10:05 IMPRESSION: 1. No findings of pulmonary embolism. 2. Persistent complete collapse of the right upper lobe status post right middle and right lower lobectomies. There has been gradual decrease in enhancement of the collapsed right upper lobe, potentially due to technique or necrosis. Associated mucous plugging could be present. 3. Suspicion for ill-defined soft tissue in the region of the right hilum, extending toward the bifurcation of the right pulmonary artery, which demonstrates persistent abrupt narrowing. 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 The findings are concerning for disease recurrence in could be better evaluated with a routine contrast-enhanced chest CT on a nonemergent basis. 4. Increased peribronchovascular reticular and groundglass opacities in the left lung, potentially infection, inflammation, or edema. None NGT carcinomatosis is considered less likely. 5. Suspected esophagitis involving the mid thoracic esophagus. 6. Findings suggestive of pulmonary hypertension. 7. Persistent large pericardial effusion. Underlying tamponade is not excluded. 8. Persistent large left pleural effusion and moderate to severe anasarca. 9. 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 D/ / Santos Quezada MD / Santos Quezada MD Interpreting Provider: Santos Quezada MD Consult Discharge Plan - Plan Referrals: Senait Wong CNP [Primary Care Provider] - 08/26/17 2:40 pm <Mary Stubbs - Last Filed: 08/26/17 21:16> Date of Encounter: 08/26/17 Time of Encounter: 17:45 - Time Spent With Patient Total time spent is greater than 50% in coordination of care (as documented) at patient's floor/unit and/or counseling patient: GI History of Present Illness - Data of Consult Requesting Physician: Jermaine Barnes - Consult Narrative History of present illness: Ms. Wong is a 72 year old female - Constitutional Vitals: Temp Pulse Resp BP Pulse Ox 97.7 F 93 17 86/74 96 08/26/17 15:00 08/26/17 15:00 08/26/17 15:00 08/26/17 15:00 08/26/17 15:00 Results - Labs CBC & Chem 7: 08/26/17 04:12 08/26/17 04:12 Labs: Last Result Calcium 8.3 mg/dL (8.6-10.3) L 08/26/17 04:12 Troponin I < 0.03 ng/mL (< 0.04) 08/20/17 06:05 Entire Visit Hgb 8.6 g/dL (11.5-15.4) L 08/26/17 04:12 Hct 29.0 % (35.3-44.9) L 08/26/17 04:12 PT 13.1 Seconds (9.4-12.1) H 08/19/17 12:32 Total Bilirubin 0.9 mg/dL (0.3-1.0) 08/20/17 00:32 AST 20 Units/L (13-39) 08/20/17 00:32 ALT 12 Units/L (7-52) 08/20/17 00:32 - ABG ABG results: PT/INR, D-dimer PT 13.1 Seconds (9.4-12.1) H 08/19/17 12:32 D-Dimer 4056 ng/mLFEU (0-500) H 08/19/17 12:32 - Impressions Impressions Chest CTA 08/26/17 10:05 IMPRESSION: 1. No findings of pulmonary embolism. 2. Persistent complete collapse of the right upper lobe status post right middle and right lower lobectomies. There has been gradual decrease in enhancement of the collapsed right upper lobe, potentially due to technique or necrosis. Associated mucous plugging could be present. 3. Suspicion for ill-defined soft tissue in the region of the right hilum, extending toward the bifurcation of the right pulmonary artery, which demonstrates persistent abrupt narrowing. 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 The findings are concerning for disease recurrence in could be better evaluated with a routine contrast-enhanced chest CT on a nonemergent basis. 4. Increased peribronchovascular reticular and groundglass opacities in the left lung, potentially infection, inflammation, or edema. None NGT carcinomatosis is considered less likely. 5. Suspected esophagitis involving the mid thoracic esophagus. 6. Findings suggestive of pulmonary hypertension. 7. Persistent large pericardial effusion. Underlying tamponade is not excluded. 8. Persistent large left pleural effusion and moderate to severe anasarca. 9. 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 D/ / Santos Quezada MD / Santos Quezada MD Interpreting Provider: Santos Quezada MD Echocardiogram Limited Views 08/26/17 13:19 Impressions: LVEF 60%. Normal right ventricular structure and function. There is a moderate to large pericardial effusion present measuring 1.8 cm in largest dimension which is most prominent along the LV border. There is no significant variation in mitral inflow with respiration. IVC is normal in size. No evidence for RA or RV collapse. There is no echo evidence for tamponade on this study. Recommend clinical correlation. Consider repeat study if clinical status changes. Left Ventricular Wall Motion: Rest Echo Findings The basal anterior septal and basal inferior lateral larsen were not visualized. All other wall segments showed normal motion. Findings: Study Quality * Technically adequate exam. ECG Findings * Normal sinus rhythm. Left Ventricle * LVEF 60%. Left Atrium * Mildly dilated left atrium. Right Atrium * Normal right atrial size. Right Ventricle * Normal right ventricular structure and function. IVC * The IVC is not dilated. * Unclear is sniff was performed. Pericardium * There is a moderate to large pericardial effusion present. No significant variation in mitral inflow. Tricuspid inflow not well obtained. No collapse of RA or RV chambers. Normal IVC dimension. - Attending Attestation I examined this patient and my medical decision-making was reviewed with the T[employer] PRINTER. I agree with the documented findings, disposition and treatment plan as described except to the extent set forth below. Pt with anemia but now has pericardial effusion. seen by CT surgery and going for pericardail window in am. Will watch H/h for now. No endoscopy at this time.
[2017-08-26] MEDS ORDERED: Levalbuterol Neb 1.25 MG/3 ML IH PRN (15:25)
--- NOTE | 2017-08-26 15:59 | Cardiothoracic Consult Note ---
Date of Encounter: 08/26/17 Time of Encounter: 15:57 Assessment and Plan (1) Pericardial effusion Current Visit: Yes Status: Acute The patient has a moderate to large pericardial effusion which has slowly increased in size based on serial chest CTs. An echocardiogram performed this afternoon confirmed the moderate to large pericardial effusion; however, did not show evidence of tamponade. In addition, the chest CT showed a moderate to large recurrent left pleural effusion. The patient has been referred for possible subxiphoid pericardial window and left chest tube insertion. I concur with this recommendation. Tentatively, the patient is scheduled for the subxiphoid pericardial window a left chest tube insertion on Sunday, August 272017. Since the procedure, benefits, alternatives, and risks (including but not limited to bleeding, infection, injury to the diaphragm, heart, lungs, pneumothorax, and ). The assessment and plan as outlined above was discussed with the patient and/or family members who expressed understanding and agreement. All questions were answered. - History of Present Illness Consult date: 08/26/17 Requesting physician: George Weston Consult reason: Pericardial effusion Chief complaint: Shortness of breath History of present illness: Ms. Wong is a 72 year old lady with a history of non-small cell right lung carcinoma and leukemia (1986 per patient) was admitted to [facility] on August 19, 2017 with complaints of shortness of breath and dyspnea on exertion. She states that she had been feeling weak for several days prior to admission; however, on the morning of admission she awoke with severe shortness of breath and dyspnea on exertion. She was evaluated at [facility] emergency department and was found to have a large left pleural effusion. She underwent thoracentesis in interventional radiology; however, the fluid was not sent for cytology. During her hospitalization she has had recurrent shortness of breath and dyspnea on exertion. A chest CT performed today showed a large left pleural effusion, as well as occlusion of the right upper lobe bronchus with collapse of the right upper lobe. In addition, the patient has a moderate to large pericardial effusion. I have been asked to evaluate the patient for subxiphoid pericardial window and left chest tube insertion. Past Med Surg Social Fam HX - Past Medical History Medical history: atrial fibrillation, cancer (Non-small cell right lung carcinoma), COPD, coronary artery disease, GERD, myocardial infarction, seizures Psychiatric history: anxiety, depression - Past Surgical History Surgical History: angioplasty/stent, cancer surgery (Right lower lobe resection) , cholecystectomy - Social History Smoking Status: Former smoker Packs per day: 0.5 PPD X 20 yrs Smokeless Tobacco Status: No Alcohol use: none Drug use: none Occupational status: retired Current living situation: Home - Independent Activity Level: Independent ambulation, Mostly sedentary Recent Out of Country Travel Within the Last 8 Weeks: No Exposure or Possible Exposure to Illness During Travel: No - Family History Mother Hx Family Cardiac Disorders: Yes Father Hx Family Cardiac Disorders: Yes Medications and Allergies Albuterol Neb [Proventil Neb] 2.5 mg IH Q4HR 05/21/15 [History] Calcium Carbonate [Tums] 500 mg PO DAILY 05/21/15 [History] Docusate [Colace] 100 mg PO BID 05/21/15 [History] Oxygen 2 l NS AD 10/28/16 [History] Clopidogrel [Plavix] 75 mg PO DAILY #30 tablet 01/13/17 [Rx] Ranitidine HCl [Zantac] 150 mg PO BID #180 tablet 02/10/17 [Rx] Atorvastatin [Lipitor] 40 mg PO HS 03/19/17 [History] Folic Acid 1 mg PO DAILY #90 tablet 05/06/17 [Rx] Pantoprazole Sodium [Protonix] 40 mg PO DAILY 05/11/17 [History] Ferrous Sulfate 325 mg PO BID #60 tablet 05/15/17 [Rx] Aspirin 81 mg PO DAILY 07/20/17 [History] Diltiazem [Cardizem] 30 mg PO Q6HR #60 tablet 07/29/17 [Rx] Fluconazole [Diflucan] 100 mg PO DAILY #19 tablet 07/29/17 [Rx] Sucralfate [Carafate] 1 gm PO QID #30 oral.susp 07/29/17 [Rx] Erlotinib HCl [Tarceva] 100 mg PO DAILY 30 Days tablet 08/04/17 [Rx] Furosemide [Lasix] 20 mg PO DAILY #30 tablet 08/11/17 [Rx] Gabapentin [Neurontin] 600 mg PO BID 08/19/17 [History] Loratadine [Allergy Relief] 10 mg PO DAILY 08/19/17 [History] Metoprolol Succinate 12.5 mg PO BID 08/20/17 [History] 3 Allergy/AdvReac Type Severity Reaction Status Date / Time No Known Allergies Allergy Verified 03/19/17 09:01 All Systems Review: A 10-system review of systems was performed and is negative for pertinent findings except as documented above in the HPI. Physical Examination General: Conversant, No Apparent Distress HEENT: Atraumatic, Normocephaly, Trachea midline Neck: No JVD, Normal carotid pulses Cardiac: Normal S1 and S2, No Murmur, Other (Irregular rate and rhythm (atrial fibrillation)) Lungs: Decreased breath sounds (Right lung oshea), Other (Wheezes or rhonchi left lung oshea) Neuro: Alert and responsive, No focal deficits noted Vascular: Normal capillary refill Abdomen: Soft, Non-tender Skin: No rashes noted on visualized skin Musculoskeletal: No Chest Wall Tenderness Extremities: No Clubbing, No Cyanosis, No Edema Results 08/26/17 04:12 08/26/17 04:12 Lab Results, Last 24 hours 08/26/17 08/26/17 04:12 04:12 WBC 9.0 Hgb 8.6 L Hct 29.0 L Plt Count 228 Sodium 139 Potassium 4.2 Chloride 102 Carbon Dioxide 33 H BUN 15 Creatinine 0.48 L Glucose 83 Calcium 8.3 L - Imaging Chest Xray: image reviewed (Normal cardiac size. Moderate left pleural effusion. ) Consult Discharge Plan - Plan Referrals: Senait Wong CNP [Primary Care Provider] - 08/26/17 2:40 pm
[2017-08-26] MEDS ORDERED: Amiodarone Premix 360 MG/200 ML BAG IVC ONE (16:03)
[2017-08-26] MEDS ORDERED: Amiodarone Premix 150 MG/100 ML BAG IVPB ONE (16:03)
[2017-08-27] MEDS ORDERED: Furosemide 20 MG/2 ML VIAL IVP ONE (02:49)
[2017-08-27] MEDS ORDERED: *HR* OxyCODONE Immed Rel 5 MG TABLET PO ONE (02:54)
[2017-08-27] MEDS: Levofloxacin 750 MG/150 ML 750 MG/150 ML BAG IVPB SCH (03:00)
[2017-08-27 04:21] LABS: Basophils % 0.2 %; Eosinophils % 0.2 %; Hematocrit 35.9 % (35.3-44.9); Immature Granulocytes % 0.8 % (0-4); Lymphocytes % 16.5 %; Mean Corpuscular HGB Conc 29.2 g/dL (31.6-35.5); Mean Corpuscular Hemoglobin 25.6 pg (28.0-33.3); Mean Corpuscular Volume 87.6 fL (83.0-100.0); Mean Platelet Volume 9.9 fL (9.4-12.4); Monocytes # 1.6 K/mcL (0.0-1.3); Monocytes % 13.4 %; Neutrophils # 8.4 K/mcL (1.6-8.9); Platelet Count 266 K/mcL (140-400); Red Cell Distribution Width 23.8 % (11.5-14.5); Segmented Neutrophils % 68.9 %
[2017-08-27 04:36] LABS: BUN/Creatinine Ratio 26 (6-26); Blood Urea Nitrogen 18 mg/dL (8-23); Carbon Dioxide 30 mEq/L (23-29); Chloride 101 mEq/L (98-107); Glucose 121 mg/dL (70-105); Osmolality,Calculated 289 (280-300); Potassium 4.4 mEq/L (3.5-5.1); Sodium 138 mEq/L (136-145); eGFR For African Americans > 60 (> 60); eGFR For Non-African Americans > 60 (> 60)
[2017-08-27 04:51] LABS: Hemoglobin 10.5 g/dL (11.5-15.4)
[2017-08-27 05:34] LABS: Anisocytosis 2+ (Not Present); Platelet Estimate Normal (Normal)
[2017-08-27] MEDS: Amiodarone Premix 360 MG/200 ML BAG IVC SCH ×3 (05:52→22:40)
[2017-08-27] MEDS ORDERED: *HR* Rocuronium Bromide 50 MG/5 ML VIAL ONE (06:55)
[2017-08-27] MEDS ORDERED: *HR* PHENYLEPHRINE 1,000 MCG/10 ML SYRINGE IVP ONE (06:55)
[2017-08-27] MEDS ORDERED: *HR* Etomidate 20 MG/10 ML AMPUL IVP ONE (06:55)
[2017-08-27] MEDS ORDERED: *HR* Midazolam HCl 5 MG/5 ML VIAL IVP ONE (06:57)
[2017-08-27] MEDS ORDERED: *HR* FentaNYL (PF) 250 MCG/5 ML VIAL ONE (06:57)
[2017-08-27] MEDS ORDERED: Ondansetron 4 MG/2 ML VIAL ONE (06:57)
[2017-08-27] MEDS ORDERED: Dexamethasone 4 MG/ML VIAL ONE (06:57)
[2017-08-27] MEDS ORDERED: CeFAZolin Premix DUPLEX 2,000 MG/50 ML BAG IVPB ONE (07:00)
--- NOTE | 2017-08-27 07:13 | Anesthesia Evaluation PreOp ---
Date of Encounter: 08/27/17 Time of Encounter: 07:11 - Past History Planned Operation: subxyphoid pericardial window with left chest tube Cardiac History: CO, HTN, Hyperlipidemia, Arrhythmia (a-fib), Cardiac Stent, Other (CAD) Pulmonary History: Former smoker, COPD, Other (nonsmall cell cancer, pneumonia, left pleural effusion) [employer]IP INTERN History: Seizures Other Medical History: GERD Anesthesia History: No Prior Anesthetic Complications, Past Anesthesia (right lower lobectomy, stent/angioplasty, maeve) Alcohol Use: none Drug use: none Medications and Allergies Albuterol Neb [Proventil Neb] 2.5 mg IH Q4HR 05/21/15 [History] Calcium Carbonate [Tums] 500 mg PO DAILY 05/21/15 [History] Docusate [Colace] 100 mg PO BID 05/21/15 [History] Oxygen 2 l NS AD 10/28/16 [History] Clopidogrel [Plavix] 75 mg PO DAILY #30 tablet 01/13/17 [Rx] Ranitidine HCl [Zantac] 150 mg PO BID #180 tablet 02/10/17 [Rx] Atorvastatin [Lipitor] 40 mg PO HS 03/19/17 [History] Folic Acid 1 mg PO DAILY #90 tablet 05/06/17 [Rx] Pantoprazole Sodium [Protonix] 40 mg PO DAILY 05/11/17 [History] Ferrous Sulfate 325 mg PO BID #60 tablet 05/15/17 [Rx] Aspirin 81 mg PO DAILY 07/20/17 [History] Diltiazem [Cardizem] 30 mg PO Q6HR #60 tablet 07/29/17 [Rx] Fluconazole [Diflucan] 100 mg PO DAILY #19 tablet 07/29/17 [Rx] Sucralfate [Carafate] 1 gm PO QID #30 oral.susp 07/29/17 [Rx] Erlotinib HCl [Tarceva] 100 mg PO DAILY 30 Days tablet 08/04/17 [Rx] Furosemide [Lasix] 20 mg PO DAILY #30 tablet 08/11/17 [Rx] Gabapentin [Neurontin] 600 mg PO BID 08/19/17 [History] Loratadine [Allergy Relief] 10 mg PO DAILY 08/19/17 [History] Metoprolol Succinate 12.5 mg PO BID 08/20/17 [History] 3 Allergy/AdvReac Type Severity Reaction Status Date / Time No Known Allergies Allergy Verified 03/19/17 09:01 - Meds/Allergy Pre-op Review Medications Reviewed: Yes Allergies Reviewed: Yes Beta Blockers on Current Med List: No Anesthesia Results - Labs 08/27/17 04:01 08/27/17 04:01 - Imaging Additional studies: echo: Impressions: LVEF 60%. Normal right ventricular structure and function. There is a moderate to large pericardial effusion present measuring 1.8 cm in largest dimension which is most prominent along the LV border. There is no significant variation in mitral inflow with respiration. IVC is normal in size. No evidence for RA or RV collapse. There is no echo evidence for tamponade on this study. Recommend clinical correlation. Consider repeat study if clinical status changes. Anesthesia Exam Selected Entries 08/27/17 06:34 Pulse Rate 80 Blood Pressure 97/63 O2 Sat by Pulse Oximetry 96 Oxygen Flow Rate (LPM) 4 Oxygen Delivery Method Nasal Cannula Weight: 56kg - HEENT Pupil (Motor): EOMI Mallampati: II Teeth: Edentulous Oral Opening: Greater than 3 - LEADERSHIP INTERN LOC: Oriented [employer] INTER[employer] Motor: Normal RUE, Normal LUE, Normal RLE, Normal LLE, Normal Face [employer] Sensory: Normal: RUE, LUE, RLE, LLE, Face - Cardiac Rhythm: Irregular Murmur: Systolic - Pulmonary Breath Sounds: bilateral Rales (wheezes, decreased breath sounds on left) Respiratory Effort: Symmetrical Anesthesia Assess/Plan ASA Score: 4 Modified [place] Scale for Level of Consciousness: Cooperative, oriented, and tranquil Anesthetic Plan: General Monitoring Plan: Standard Monitors, A-Line Recovery Plan: ICU (agrees to GA and a-line)
[2017-08-27] MEDS ORDERED: Heparin 1,000 UNITS/500 mL 500 ML ONE (07:41)
[2017-08-27] MEDS ORDERED: SUGAMMADEX SODIUM 500 MG/5 ML VIAL IV ONE (08:41)
[2017-08-27] MEDS ORDERED: Metoprolol XL (24 HR) Succ 25 MG TAB.ER.24H PO SCH (09:00)
--- NOTE | 2017-08-27 09:03 | Operative Note ---
Date of procedure: 08/27/17 Pre-op diagnosis: 1. Pericardial effusion 2. Left pleural effusion Post-op diagnosis: same Procedure: 1. Subxiphoid pericardial window 2. Left chest tube insertion Implants: None. Complications: None. Anesthesia: DENZEL Surgeon: Donna Tomas Was there an assistant floor covering printer present: No Estimated blood loss (cc): 5 Specimen: 1. Anterior pericardium 2. Pericardial effusion 3. Left pleural effusion Condition: stable Disposition: ICU Procedure in Detail: INDICATIONS FOR OPERATION: The patient is a 72 year old lady with a history of non-small cell right lung carcinoma and leukemia (1986 per patient) was admitted to [facility] on August 19, 2017 with complaints of shortness of breath and dyspnea on exertion. She states that she had been feeling weak for several days prior to admission; however, on the morning of admission she awoke with severe shortness of breath and dyspnea on exertion. She was evaluated at [facility] emergency department and was found to have a large left pleural effusion. She underwent thoracentesis in interventional radiology; however, the fluid was not sent for cytology. During her hospitalization she has had recurrent shortness of breath and dyspnea on exertion. A chest CT performed today showed a large left pleural effusion, as well as occlusion of the right upper lobe bronchus with collapse of the right upper lobe. In addition, the patient has a moderate to large pericardial effusion. I have been asked to evaluate the patient for subxiphoid pericardial window and left chest tube insertion. FINDINGS AT OPERATION: The patient had approximately 270 mL of yellow straw-colored fluid in the pericardial space. A portion of the pericardial fluid was sent for CBC, glucose , LDH, total protein, culture (aerobic, anaerobic, fungal, TB), and cytology. A portion of the anterior pericardium was sent for permanent section. She had approximately 500 mL of yellow straw-colored fluid in the left pleural space. A portion of the left pleural fluid was sent for cytology. No other abnormalities were noted. DESCRIPTION OF OPERATION: After obtaining informed consent from the patient, she was taken to the operative risk satisfactory general endotracheal anesthetic was induced. Appropriate monitoring lines placed, and the patient's chest and abdomen were prepped and draped in a sterile fashion. A vertical incision was then made over the xiphoid process to the skin and subcutaneous tissue. The xiphoid process was exposed and resected. The pericardial fat was then bluntly dissected from the posterior aspect of the sternum. The pericardium was identified and opened with an 15 blade. Approximately 270 mL of yellow straw colored fluid was removed from the pericardial space. A portion of the pericardial fluid was sent for CBC, chemistry, culture, and cytology. A portion of the anterior pericardium was resected and sent for permanent section. A 32 Vincentian right angle chest tube was then placed along the diaphragm. The rectus abdominis fascia, subcutaneous tissue, and skin edges were reapproximated using running Vicryl sutures. The incision was then made in the left anterior axillary line in the inframammary crease. The incision was carried down to the intercostal space using blunt dissection. A lower intercostal space was opened and a 28 Vincentian chest tube was inserted posteriorly. Approximately 500 mL of yellow straw- colored fluid was removed from the left pleural space. The chest tube was secured to the skin. Sterile dressings were applied. The patient was transferred to the ICU in satisfactory postoperative condition. There were no intraoperative complications , and the instrument, needle, and sponge count were correct at end of operation.
[2017-08-27] MEDS ORDERED: *HR* HYDROcodone/Acet 5/325 mg TABLET PO PRN (09:04)
[2017-08-27] MEDS ORDERED: *HR* FentaNYL (PF) 100 MCG/2 ML VIAL IVP PRN (09:10)
[2017-08-27] MEDS ORDERED: *HR* Dextrose 50 % in Water (Syg) 50 ML SYRINGE ONE (09:24)
[2017-08-27 09:37] LABS: Basophils % 0.2 %; Eosinophils % 0.2 %; Hematocrit 32.3 % (35.3-44.9); Hemoglobin 9.7 g/dL (11.5-15.4); Immature Granulocytes % 0.9 % (0-4); Lymphocytes # 1.3 K/mcL (0.6-4.6); Lymphocytes % 12.7 %; Mean Corpuscular Hemoglobin 25.6 pg (28.0-33.3); Mean Corpuscular Volume 85.2 fL (83.0-100.0); Mean Platelet Volume 9.9 fL (9.4-12.4); Monocytes # 1.1 K/mcL (0.0-1.3); Monocytes % 10.7 %; Neutrophils # 7.8 K/mcL (1.6-8.9); Nucleated Red Blood Cells 0.2 /100 WBC (0); Platelet Count 243 K/mcL (140-400); Red Blood Count 3.79 M/mcL (3.82-4.97); Red Cell Distribution Width 23.3 % (11.5-14.5); Segmented Neutrophils % 75.3 %
[2017-08-27 09:47] LABS: Calcium 8.9 mg/dL (8.6-10.3); Carbon Dioxide 28 mEq/L (23-29); Chloride 102 mEq/L (98-107); Potassium 4.8 mEq/L (3.5-5.1); Sodium 137 mEq/L (136-145)
[2017-08-27 09:53] LABS: BUN/Creatinine Ratio 26 (6-26); Blood Urea Nitrogen 20 mg/dL (8-23); Glucose 107 mg/dL (70-105); Osmolality,Calculated 287 (280-300); eGFR For African Americans > 60 (> 60); eGFR For Non-African Americans > 60 (> 60)
[2017-08-27] MEDS ORDERED: Lacri-Lube 3.5 GM TUBE BOTH EYES PRN (10:32)
[2017-08-27 10:37] LABS: ABG Base Excess 9 mEq/L (-2 to 3); ABG HCO3 30 mEq/L (21-27); ABG Oxygen Saturation 100 % (95-98); ABG PCO2 31 mmHg (35-45); ABG PO2 349 mmHg (85-104); ABG TCO2 31 mEq/L (20-26); Blood Gas Modality ASSIST CONTROL; Blood Gas PEEP 5 cm H2O; Blood Gas Respiration Rate 14; Blood Gas VT 450 cc
--- NOTE | 2017-08-27 10:42 | Pulmonology Progress Note ---
<Milton Baltazar - Last Filed: 08/27/17 13:41> Date of Encounter: 08/27/17 Time of Encounter: 10:00 Assessment and Plan (1) Pericardial effusion Current Visit: Yes Status: Acute S/p subxiphoid pericardial window and left chest tube intertion today 08/27/[address] surgery. (2) Acute and chronic respiratory failure Current Visit: Yes Status: Acute Intubated, sedated on fentanyl, on a/c vent Qualifiers: Respiratory failure complication: hypoxia Qualified Code(s): J96.21 - Acute and chronic respiratory failure with hypoxia (3) Pleural effusion on left Current Visit: Yes Status: Acute S/p chest tube L, 08/27/17. (4) Atrial fibrillation with RVR Current Visit: Yes Status: Chronic Held for procedure 08/27. Resumed Amiodarone 360mg/200mL due to HR 120s with hypotension. Current MAP difficult to ascertain due to artifact but likely needing pressor support, will initiate Levophed at 8mcg. (5) HCAP (healthcare-associated pneumonia) Current Visit: Yes Status: Acute Day 8 Levaquin; de-escalated from triple abx (vanc/zosyn). (6) Non-small cell lung cancer Current Visit: Yes Status: Chronic Known hx non-small cell lung cancer, follows Dr. Valadez. S/p R lower lobe lobectomy her eCW chart review, date unknown. Qualifiers: Laterality: left Qualified Code(s): C34.92 - Malignant neoplasm of unspecified part of left bronchus or lung Subjective Principal diagnosis: Pericarial Effusion+Recurrent L pleural effusion Interval history: Interval history: Admitted 08/19/17 for onset of several days of worsening shortness of breath and dyspnea with exertion. She has a past medical history of non-small cell lung carcinoma, s/p right lobectomy, leukemia, afib. ED CTA showed large L-sided pleural effusion. 1L of pleural fluid was removed by IR. Subsequent CXRs showed minimal pleural effusion through 08/24. Echo performed showed moderate-large pericardial effusion w/o evidence of tamponade in addition to large recurrent L-sided pleural effusion. Subxiphoid pericardial window + L chest tube insertion performed by CT surgery 08/27. Objective PUL Vital signs: Last Vital Signs Temp 97.7 F 08/27/17 10:02 Pulse 125 08/27/17 10:02 Resp 29 08/27/17 10:02 BP 98/57 08/27/17 10:02 Pulse Ox 100 08/27/17 09:15 General appearance: other (intubated and sedated (on fentanyl)) Eyes: nonicteric ENT: oropharynx moist Auscultation: left: diminished breath sounds, right: other (hx R lobectomy) Cardiovascular: irregular rhythm Gastrointestinal: soft, non-distended Integumentary: normal, other Extremities: no cyanosis Ventilator Settings Ventilator Settings: Ventilator Settings, Last 8 Hours Ventilator Mode A/C Ventilator Tidal Volume 450 Setting Ventilator Respiratory Rate 34 Setting Actual Respiratory Rate 14 Positive End Expiratory 5 Pressure Results - Laboratory Findings CBC and BMP: 08/27/17 09:30 08/27/17 09:30 ABG ABG pH 7.60 pH Units (7.32-7.45) H* 08/27/17 10:29 ABG pCO2 31 mmHg (35-45) L 08/27/17 10:29 ABG pO2 349 mmHg (85-104) H 08/27/17 10:29 ABG O2 Saturation 100 % (95-98) H 08/27/17 10:29 PT/INR, D-dimer PT 13.1 Seconds (9.4-12.1) H 08/19/17 12:32 D-Dimer 4056 ng/mLFEU (0-500) H 08/19/17 12:32 Abnormal lab findings: Abnormal lab results RBC 3.79 M/mcL (3.82-4.97) L 08/27/17 09:30 Hgb 9.7 g/dL (11.5-15.4) L 08/27/17 09:30 Hct 32.3 % (35.3-44.9) L 08/27/17 09:30 MCH 25.6 pg (28.0-33.3) L 08/27/17 09:30 MCHC 30.0 g/dL (31.6-35.5) L 08/27/17 09:30 RDW 23.3 % (11.5-14.5) H 08/27/17 09:30 Monocytes # 1.6 K/mcL (0.0-1.3) H 08/27/17 04:01 Nucleated RBCs/100 WBC 0.2 /100 WBC (0) H 08/27/17 09:30 Polychromasia 1+ (Not Present) A 08/24/17 06:01 Poikilocytosis 1+ (Not Present) A 08/26/17 04:12 Anisocytosis 2+ (Not Present) A 08/27/17 04:01 Microcytosis Present (Not Present) A 08/25/17 04:19 Macrocytosis Present (Not Present) A 08/25/17 04:19 Target Cells 1+ (Not Present) A 08/25/17 04:19 Ovalocytes 1+ (Not Present) A 08/24/17 06:01 Acanthocytes (Spur) 1+ (Not Present) A 08/24/17 06:01 Schistocytes 1+ (Not Present) A 08/26/17 04:12 PT 13.1 Seconds (9.4-12.1) H 08/19/17 12:32 D-Dimer 4056 ng/mLFEU (0-500) H 08/19/17 12:32 ABG pH 7.60 pH Units (7.32-7.45) H* 08/27/17 10:29 ABG pCO2 31 mmHg (35-45) L 08/27/17 10:29 ABG pO2 349 mmHg (85-104) H 08/27/17 10:29 ABG HCO3 30 mEq/L (21-27) H 08/27/17 10:29 ABG Total CO2 31 mEq/L (20-26) H 08/27/17 10:29 ABG O2 Saturation 100 % (95-98) H 08/27/17 10:29 ABG Base Excess 9 mEq/L (-2 to 3) H 08/27/17 10:29 VBG pCO2 53 mmHg (41-51) H 08/19/17 12:50 VBG pO2 63 mmHg (25-50) H 08/19/17 12:50 VBG HCO3 29 mEq/L (21-27) H 08/19/17 12:50 Glucose 107 mg/dL (70-105) H 08/27/17 09:30 POC Glucose 106 (58-89) H 08/27/17 09:24 Direct Bilirubin 0.4 mg/dL (0.0-0.2) H 08/19/17 12:32 B-Natriuretic Peptide 640 pg/mL (Less than 100) H 08/20/17 00:32 Serum Total Protein 4.7 g/dL (6.4-8.9) L 08/20/17 00:32 Albumin 2.6 g/dL (3.5-5.7) L 08/20/17 00:32 Globulin 2.1 g/dL (2.4-3.5) L 08/20/17 00:32 Urine Bilirubin Small (Negative) H 08/19/17 13:08 Ur Squamous Epith Cells Moderate per lpf (None-Few) H 08/19/17 13:08 - Clinical Findings Intake & Output: Intake & Output 08/26/17 08/27/17 08/27/17 23:59 07:59 15:59 Intake Total 0 / 0 50 / 50 Output Total 0 / 0 290 / 290 Balance 0 / 0 -240 / -240 Weight 55.7 kg - VTE Documentation of Mechanical Device: Intermittent pneumatic compression device Consult Discharge Plan - Plan Referrals: Senait Wong CNP [Primary Care Provider] - 08/26/17 2:40 pm <Keara Leonard - Last Filed: 08/27/17 16:27> Date of Encounter: 08/27/17 Assessment and Plan (1) Pleural effusion, left Current Visit: No Status: Resolved (2) Congestive heart failure Current Visit: Yes Status: Chronic Objective PUL Vital signs: Last Vital Signs Temp 97.7 F 08/27/17 10:02 Pulse 95 08/27/17 15:00 Resp 24 08/27/17 15:00 BP 130/80 08/27/17 15:00 Pulse Ox 94 08/27/17 15:00 Ventilator Settings Ventilator Settings: Ventilator Settings, Last 8 Hours Ventilator Mode A/C Ventilator Mode A/C Ventilator Mode A/C Ventilator Mode A/C Ventilator Mode A/C Ventilator Mode A/C Ventilator Mode A/C Ventilator Mode A/C Ventilator Mode A/C Ventilator Mode A/C Ventilator Tidal Volume 450 Setting Ventilator Tidal Volume 450 Setting Ventilator Tidal Volume 450 Setting Ventilator Tidal Volume 450 Setting Ventilator Tidal Volume 450 Setting Ventilator Tidal Volume 400 Setting Ventilator Tidal Volume 450 Setting Ventilator Tidal Volume 450 Setting Ventilator Tidal Volume 450 Setting Ventilator Tidal Volume 450 Setting Ventilator Respiratory Rate 14 Setting Ventilator Respiratory Rate 14 Setting Ventilator Respiratory Rate 14 Setting Ventilator Respiratory Rate 14 Setting Ventilator Respiratory Rate 14 Setting Ventilator Respiratory Rate 12 Setting Ventilator Respiratory Rate 14 Setting Ventilator Respiratory Rate 14 Setting Ventilator Respiratory Rate 34 Setting Ventilator Respiratory Rate 14 Setting Actual Respiratory Rate 35 Actual Respiratory Rate 35 Actual Respiratory Rate 14 Actual Respiratory Rate 26 Positive End Expiratory 5 Pressure Positive End Expiratory 5 Pressure Positive End Expiratory 5 Pressure Positive End Expiratory 5 Pressure Positive End Expiratory 5 Pressure Positive End Expiratory 5 Pressure Positive End Expiratory 5 Pressure Positive End Expiratory 5 Pressure Positive End Expiratory 5 Pressure Positive End Expiratory 5 Pressure Peak Inspiratory Airway 28 Pressure Peak Inspiratory Airway 29 Pressure Peak Inspiratory Airway 31 Pressure Results - Laboratory Findings CBC and BMP: 08/27/17 09:30 08/27/17 09:30 ABG ABG pH 7.60 pH Units (7.32-7.45) H* 08/27/17 10:29 ABG pCO2 31 mmHg (35-45) L 08/27/17 10:29 ABG pO2 349 mmHg (85-104) H 08/27/17 10:29 ABG O2 Saturation 100 % (95-98) H 08/27/17 10:29 PT/INR, D-dimer PT 13.1 Seconds (9.4-12.1) H 08/19/17 12:32 D-Dimer 4056 ng/mLFEU (0-500) H 08/19/17 12:32 Abnormal lab findings: Abnormal lab results RBC 3.79 M/mcL (3.82-4.97) L 08/27/17 09:30 Hgb 9.7 g/dL (11.5-15.4) L 08/27/17 09:30 Hct 32.3 % (35.3-44.9) L 08/27/17 09:30 MCH 25.6 pg (28.0-33.3) L 08/27/17 09:30 MCHC 30.0 g/dL (31.6-35.5) L 08/27/17 09:30 RDW 23.3 % (11.5-14.5) H 08/27/17 09:30 Nucleated RBCs/100 WBC 0.2 /100 WBC (0) H 08/27/17 09:30 Polychromasia 1+ (Not Present) A 08/24/17 06:01 Poikilocytosis 1+ (Not Present) A 08/27/17 09:30 Anisocytosis 1+ (Not Present) A 08/27/17 09:30 Microcytosis Present (Not Present) A 08/25/17 04:19 Macrocytosis Present (Not Present) A 08/25/17 04:19 Target Cells 1+ (Not Present) A 08/25/17 04:19 Ovalocytes 1+ (Not Present) A 08/24/17 06:01 Acanthocytes (Spur) 1+ (Not Present) A 08/24/17 06:01 Schistocytes 1+ (Not Present) A 08/27/17 09:30 PT 13.1 Seconds (9.4-12.1) H 08/19/17 12:32 D-Dimer 4056 ng/mLFEU (0-500) H 08/19/17 12:32 ABG pH 7.60 pH Units (7.32-7.45) H* 08/27/17 10:29 ABG pCO2 31 mmHg (35-45) L 08/27/17 10:29 ABG pO2 349 mmHg (85-104) H 08/27/17 10:29 ABG HCO3 30 mEq/L (21-27) H 08/27/17 10:29 ABG Total CO2 31 mEq/L (20-26) H 08/27/17 10:29 ABG O2 Saturation 100 % (95-98) H 08/27/17 10:29 ABG Base Excess 9 mEq/L (-2 to 3) H 08/27/17 10:29 VBG pCO2 53 mmHg (41-51) H 08/19/17 12:50 VBG pO2 63 mmHg (25-50) H 08/19/17 12:50 VBG HCO3 29 mEq/L (21-27) H 08/19/17 12:50 Glucose 107 mg/dL (70-105) H 08/27/17 09:30 POC Glucose 109 (58-89) H 08/27/17 11:28 Direct Bilirubin 0.4 mg/dL (0.0-0.2) H 08/19/17 12:32 B-Natriuretic Peptide 640 pg/mL (Less than 100) H 08/20/17 00:32 Serum Total Protein 4.7 g/dL (6.4-8.9) L 08/20/17 00:32 Albumin 2.6 g/dL (3.5-5.7) L 08/20/17 00:32 Globulin 2.1 g/dL (2.4-3.5) L 08/20/17 00:32 Urine Bilirubin Small (Negative) H 08/19/17 13:08 Ur Squamous Epith Cells Moderate per lpf (None-Few) H 08/19/17 13:08 - Microbiology Findings Microbiology Findings: Microbiology, Last 48 Hours 08/27/17 08:20 Body Fluid Culture - Preliminary Pericardial Fluid - Clinical Findings Intake & Output: Intake & Output 08/27/17 08/27/17 08/27/17 07:59 15:59 23:59 Intake Total 2450 / 2450 Output Total 425 / 425 Balance 2024 / 2024 - Attending Attestation I examined this patient and my medical decision-making was reviewed with the Resident Physician. I agree with the documented findings, disposition and treatment plan as described except to the extent set forth below. Patient seen and examined. Labs, radiology, chart personally reviewed. Agree with resident's history and physical, assessment, plan with following comments: SHACKLER: Patient follows commands, Pulmonary: Acceptable oxygenation and ventilation, however patient hemodynamically not stable and concerned about if she gets extubated with hemodynamic instability her condition could deteriorate. Patient had pleural effusion which was also drained. I have made changes on the ventilator to lower her tidal volume and respiratory rate to correct for her respiratory alkalosis. I am hoping she will stabilize him next in 4 hours to be able to liberate him from the ventilator Cardiovascular: Patient had pericardial effusion drained and her blood pressure is low did not responded to fluid and Levophed was started. A doubt to discuss his septic this is probably more post operative and could be cardiac related. GI: Nutrition per dietary and GI prophylaxis per routine Heme: DVT prophylaxis per routine with mechanical DVT prophylaxis ID: Continue antibiotics and plan to de-escalation Renal; urine out put and renal funtion reviewed Endorcine: blood glucose is monitored Lines: all lines checked and no evidence of infections Skin: skin care to prevent pressure ulcers per nursing routine care I spent 35 min of Critical Care time with this patient. It involved decision making of high complexity to assess, manipulate, and support vital organ system failure and/or to prevent further life threatening deterioration of the patient' s condition. The time involved in the performance of separately reportable procedures was not counted toward critical care time.
[2017-08-27] MEDS: 0.9 % Sodium Chloride w KCl 20 MEQ/1,000 ML MLS IVC SCH ×2 (10:53→22:43)
[2017-08-27 11:44] LABS: Platelet Estimate Normal (Normal)
[2017-08-27 11:45] LABS: Anisocytosis 1+ (Not Present); Poikilocytosis 1+ (Not Present); Schistocytes 1+ (Not Present)
[2017-08-27] MEDS ORDERED: 0.9 % Sodium Chloride 1,000 ML IVC ONE (11:48)
[2017-08-27] MEDS ORDERED: 0.9 % Sodium Chloride 1,000 ML ONE (11:51)
[2017-08-27] MEDS ORDERED: Amiodarone Premix 360 MG/200 ML BAG IVC ONE (11:52)
[2017-08-27] MEDS: Dexmedetomidine HCl 400 MCG/100 ML MLS IVC PRN (12:04)
[2017-08-27] MEDS: Aspirin 81 MG TAB.CHEW PO SCH (12:05)
[2017-08-27] MEDS: Folic Acid 1 MG TABLET PO SCH (12:05)
[2017-08-27] MEDS: Gabapentin 300 MG CAPSULE PO SCH ×2 (12:05→20:46)
[2017-08-27] MEDS: Loratadine 10 MG TABLET PO SCH (12:05)
[2017-08-27] MEDS: ERLOTINIB HCL 100 MG PO SCH (12:05)
[2017-08-27] MEDS: Famotidine 20 MG TABLET PO SCH (12:06)
[2017-08-27] MEDS: predniSONE 20 MG TABLET PO SCH (12:06)
[2017-08-27] MEDS ORDERED: Norepinephrine 4 MG in D5% in Water 250 ML IVC STA (13:22)
[2017-08-27] MEDS ORDERED: 0.9 % Sodium Chloride 500 ML IVC STA (13:24)
[2017-08-27] MEDS ORDERED: 0.9 % Sodium Chloride 500 ML ONE (13:24)
[2017-08-27 13:29] LABS: Glucose,Pericardial Fluid 103 mg/dL (No Ref Range)
[2017-08-27] MEDS ORDERED: Norepinephrine 4 MG in D5% in Water 250 ML IVC SCH (13:30)
[2017-08-27] MEDS: 0.9 % Sodium Chloride 500 ML ONE (13:40)
[2017-08-27] MEDS: FentaNYL (PF) 1,000 MCG in 0.9 % Sodium Chloride 80 ML IVC SCH (13:41)
[2017-08-27] MEDS: Pantoprazole 40 MG VIAL IVP SCH ×2 (13:48→20:49)
[2017-08-27] MEDS: CeFAZolin Premix DUPLEX 2,000 MG/50 ML BAG IVPB SCH ×2 (14:59→23:53)
[2017-08-27 15:21] LABS: Appearance of Pericardial Fl Hazy (Clear)
[2017-08-27 16:54] LABS: ABG Base Excess 3 mEq/L (-2 to 3); ABG HCO3 25 mEq/L (21-27); ABG Oxygen Saturation 98 % (95-98); ABG PCO2 31 mmHg (35-45); ABG PH 7.53 pH Units (7.32-7.45); ABG PO2 89 mmHg (85-104); ABG TCO2 26 mEq/L (20-26); Blood Gas Modality ASSIST CONTROL; Blood Gas PEEP 5 cm H2O; Blood Gas Respiration Rate 12; Blood Gas VT 400 cc
[2017-08-27] MEDS: Chlorhexidine Rinse 15 ML MOUTHWASH MM SCH (20:45)
--- NOTE | 2017-08-28 01:04 | Pulmonology Progress Note ---
<Amarjit Ortiz - Last Filed: 08/28/17 05:11> Date of Encounter: 08/28/17 Time of Encounter: 00:50 Assessment and Plan (1) Acute and chronic respiratory failure Current Visit: Yes Status: Acute 1. Acute and chronic respiratory failure. In the setting of right middle and lower lobectomy, chronic RUL consolidation/ collapse, non-small cell lung cancer, COPD. Intubated. Sedated: Precedex Analgesic: Fentanyl Consider wean to CPAP trial today. Extubate to nasal cannulae pending CPAP trial. 2. HCAP Left basilar atelectasis. Continue empiric Levaquin (Day 9). De-escilated from Levaquin, vanc, zosyn. 3. Pleural effusion on left Improved on CXR. No pneumothorax. s/p chest tube insertion 08/28: 270mL out since placement. s/p thoracocentesis 08/19: 1L straw colored fluid. 4. Pericardial effusion Post-op Ancef. Echo 08/26/17: LVEF 60%. mod-lg pericardial effusion with greatest measurement 1 /8cm at LV boarder. No tamponade. Subxiphoid pericardial window 08/27/17: appx 270mL straw-colored fluid. Pericardial fluid transudative. Culture pending. Pericardial window tissue sent for permanent section. 5. Atrial fibrillation with RVR Resolved overnight to NSR. BP previously labile requiring varying amounts of low dose levophed through midline. Continue amiodarone until extubated. Then consider conversion from IV to PO amiodarone. 6. Non-small cell lung cancer Known hx of non-small cell lung cancer. Follows Dr. Valadez. Remote right sided lobectomy. CTA chest shows right middle and lower lobectomy. Qualifiers: Respiratory failure complication: hypoxia Qualified Code(s): J96.21 - Acute and chronic respiratory failure with hypoxia (2) HCAP (healthcare-associated pneumonia) Current Visit: Yes Status: Acute (3) Pleural effusion on left Current Visit: Yes Status: Acute (4) Pericardial effusion Current Visit: Yes Status: Acute (5) Atrial fibrillation with RVR Current Visit: Yes Status: Chronic (6) Non-small cell lung cancer Current Visit: Yes Status: Chronic Qualifiers: Laterality: left Qualified Code(s): C34.92 - Malignant neoplasm of unspecified part of left bronchus or lung Subjective Principal diagnosis: Pericarial Effusion+Recurrent L pleural effusion Interval history: Mrs. Wong, 72yo female, presented to ED 08/29/17 for progressive dyspnea with exertion. She carries a past medical history of non-small cell lung carcinoma, s/p right lobectomy, leukemia, afib. Day 1 s/p pericardial window. Day 9s/p thoracocentesis. Intubated 08/27 for pericardial window & Lt chest tube placement, remains intubated. She required minimal levophed through a right UE midline while in A-Fib due to labile blood pressures. Nailbeds of fingers mildly cyanotic; suspect secondary to patient's cold hands. Levophed was a 1mcg/min at that time and had been no higher than 5mcg/min in preceeding several hours. This resolved with application of ZAKIYA hugger. Patient remained normothermic. In the night, she spontaneously converted from atrial fibrillation to NSR while on amiodarone drip. Once NSR, her levophed drip was stopped and her systolic BP remained 120' s-130's. Objective PUL Vital signs: Last Vital Signs Temp 97.7 F 08/27/17 23:48 Pulse 65 08/28/17 00:00 Resp 12 08/28/17 00:00 BP 122/61 08/28/17 00:00 Pulse Ox 100 08/28/17 00:00 General appearance: no acute distress, other (intubated, sedated) ENT: oropharynx moist Effort: normal Auscultation: bilateral: clear, diminished breath sounds Cardiovascular: regular rate and rhythm, murmur noted (systolic) Gastrointestinal: normoactive bowel sounds, soft, non-distended Integumentary: normal Extremities: no cyanosis (with zakiya hugger on, no pressors), no edema, no clubbing, pink and warm, pulses normal Musculoskeletal: no deformities pupils equal and round, unable to assess due to mental status Left thoracic chest tube (#1) secured in place, bandages clean and dry. Light serosanguinous fluid. Right thoracic chest tube (#2) secured in place, bandages clean and dry. Serosanguinous fluid Ventilator Settings Ventilator Settings: Ventilator Settings, Last 8 Hours Ventilator Mode A/C Ventilator Mode A/C Ventilator Mode A/C Ventilator Mode A/C Ventilator Mode A/C Ventilator Mode A/C Ventilator Mode A/C Ventilator Mode A/C Ventilator Mode A/C Ventilator Mode A/C Ventilator Mode A/C Ventilator Tidal Volume 380 Setting Ventilator Tidal Volume 380 Setting Ventilator Tidal Volume 380 Setting Ventilator Tidal Volume 380 Setting Ventilator Tidal Volume 380 Setting Ventilator Tidal Volume 380 Setting Ventilator Tidal Volume 380 Setting Ventilator Tidal Volume 380 Setting Ventilator Tidal Volume 400 Setting Ventilator Tidal Volume 400 Setting Ventilator Tidal Volume 450 Setting Ventilator Respiratory Rate 12 Setting Ventilator Respiratory Rate 12 Setting Ventilator Respiratory Rate 12 Setting Ventilator Respiratory Rate 12 Setting Ventilator Respiratory Rate 12 Setting Ventilator Respiratory Rate 12 Setting Ventilator Respiratory Rate 12 Setting Ventilator Respiratory Rate 12 Setting Ventilator Respiratory Rate 12 Setting Ventilator Respiratory Rate 12 Setting Ventilator Respiratory Rate 14 Setting Actual Respiratory Rate 12 Actual Respiratory Rate 12 Actual Respiratory Rate 12 Actual Respiratory Rate 12 Actual Respiratory Rate 12 Actual Respiratory Rate 12 Actual Respiratory Rate 16 Actual Respiratory Rate 13 Actual Respiratory Rate 14 Actual Respiratory Rate 12 Positive End Expiratory 5 Pressure Positive End Expiratory 5 Pressure Positive End Expiratory 5 Pressure Positive End Expiratory 5 Pressure Positive End Expiratory 5 Pressure Positive End Expiratory 5 Pressure Positive End Expiratory 5 Pressure Positive End Expiratory 5 Pressure Positive End Expiratory 5 Pressure Positive End Expiratory 5 Pressure Positive End Expiratory 5 Pressure Peak Inspiratory Airway 24 Pressure Peak Inspiratory Airway 24 Pressure Peak Inspiratory Airway 24 Pressure Peak Inspiratory Airway 27 Pressure Peak Inspiratory Airway 27 Pressure Peak Inspiratory Airway 25 Pressure Peak Inspiratory Airway 25 Pressure Peak Inspiratory Airway 24 Pressure Peak Inspiratory Airway 24 Pressure Peak Inspiratory Airway 28 Pressure Results - Laboratory Findings CBC and BMP: 08/28/17 03:19 08/28/17 03:19 ABG ABG pH 7.53 pH Units (7.32-7.45) H 08/27/17 16:51 ABG pCO2 31 mmHg (35-45) L 08/27/17 16:51 ABG pO2 89 mmHg (85-104) 08/27/17 16:51 ABG O2 Saturation 98 % (95-98) 08/27/17 16:51 PT/INR, D-dimer PT 13.1 Seconds (9.4-12.1) H 08/19/17 12:32 D-Dimer 4056 ng/mLFEU (0-500) H 08/19/17 12:32 Abnormal lab findings: Abnormal lab results RBC 3.79 M/mcL (3.82-4.97) L 08/27/17 09:30 Hgb 9.7 g/dL (11.5-15.4) L 08/27/17 09:30 Hct 32.3 % (35.3-44.9) L 08/27/17 09:30 MCH 25.6 pg (28.0-33.3) L 08/27/17 09:30 MCHC 30.0 g/dL (31.6-35.5) L 08/27/17 09:30 RDW 23.3 % (11.5-14.5) H 08/27/17 09:30 Nucleated RBCs/100 WBC 0.2 /100 WBC (0) H 08/27/17 09:30 Polychromasia 1+ (Not Present) A 08/24/17 06:01 Poikilocytosis 1+ (Not Present) A 08/27/17 09:30 Anisocytosis 1+ (Not Present) A 08/27/17 09:30 Microcytosis Present (Not Present) A 08/25/17 04:19 Macrocytosis Present (Not Present) A 08/25/17 04:19 Target Cells 1+ (Not Present) A 08/25/17 04:19 Ovalocytes 1+ (Not Present) A 08/24/17 06:01 Acanthocytes (Spur) 1+ (Not Present) A 08/24/17 06:01 Schistocytes 1+ (Not Present) A 08/27/17 09:30 PT 13.1 Seconds (9.4-12.1) H 08/19/17 12:32 D-Dimer 4056 ng/mLFEU (0-500) H 08/19/17 12:32 ABG pH 7.53 pH Units (7.32-7.45) H 08/27/17 16:51 ABG pCO2 31 mmHg (35-45) L 08/27/17 16:51 VBG pCO2 53 mmHg (41-51) H 08/19/17 12:50 VBG pO2 63 mmHg (25-50) H 08/19/17 12:50 VBG HCO3 29 mEq/L (21-27) H 08/19/17 12:50 Glucose 107 mg/dL (70-105) H 08/27/17 09:30 POC Glucose 112 (58-89) H 08/27/17 23:56 Direct Bilirubin 0.4 mg/dL (0.0-0.2) H 08/19/17 12:32 B-Natriuretic Peptide 640 pg/mL (Less than 100) H 08/20/17 00:32 Serum Total Protein 4.7 g/dL (6.4-8.9) L 08/20/17 00:32 Albumin 2.6 g/dL (3.5-5.7) L 08/20/17 00:32 Globulin 2.1 g/dL (2.4-3.5) L 08/20/17 00:32 Urine Bilirubin Small (Negative) H 08/19/17 13:08 Ur Squamous Epith Cells Moderate per lpf (None-Few) H 08/19/17 13:08 - Microbiology Findings Microbiology Findings: Microbiology, Last 48 Hours 08/27/17 08:20 Body Fluid Culture - Preliminary Pericardial Fluid - Diagnostic Findings Additional studies: Thoracentesis Ultrasound 08/19/17 00:00 IMPRESSION: Successful ultrasound guided thoracentesis. D/ / Thierry Naranjo MD / Thierry Naranjo MD Interpreting Provider: Thierry Naranjo MD Chest CTA 08/26/17 10:05 IMPRESSION: 1. No findings of pulmonary embolism. 2. Persistent complete collapse of the right upper lobe status post right middle and right lower lobectomies. There has been gradual decrease in enhancement of the collapsed right upper lobe, potentially due to technique or necrosis. Associated mucous plugging could be present. 3. Suspicion for ill-defined soft tissue in the region of the right hilum, extending toward the bifurcation of the right pulmonary artery, which demonstrates persistent abrupt narrowing. 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 The findings are concerning for disease recurrence in could be better evaluated with a routine contrast-enhanced chest CT on a nonemergent basis. 4. Increased peribronchovascular reticular and groundglass opacities in the left lung, potentially infection, inflammation, or edema. None NGT carcinomatosis is considered less likely. 5. Suspected esophagitis involving the mid thoracic esophagus. 6. Findings suggestive of pulmonary hypertension. 7. Persistent large pericardial effusion. Underlying tamponade is not excluded. 8. Persistent large left pleural effusion and moderate to severe anasarca. 9. 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 D/ / Santos Quezada MD / Santos Quezada MD Interpreting Provider: Santos Quezada MD Echocardiogram Limited Views 08/26/17 13:19 Impressions: LVEF 60%. Normal right ventricular structure and function. There is a moderate to large pericardial effusion present measuring 1.8 cm in largest dimension which is most prominent along the LV border. There is no significant variation in mitral inflow with respiration. IVC is normal in size. No evidence for RA or RV collapse. There is no echo evidence for tamponade on this study. Recommend clinical correlation. Consider repeat study if clinical status changes. Left Ventricular Wall Motion: Rest Echo Findings The basal anterior septal and basal inferior lateral larsen were not visualized. All other wall segments showed normal motion. Findings: Study Quality * Technically adequate exam. ECG Findings * Normal sinus rhythm. Left Ventricle * LVEF 60%. Left Atrium * Mildly dilated left atrium. Right Atrium * Normal right atrial size. Right Ventricle * Normal right ventricular structure and function. IVC * The IVC is not dilated. * Unclear is sniff was performed. Pericardium * There is a moderate to large pericardial effusion present. No significant variation in mitral inflow. Tricuspid inflow not well obtained. No collapse of RA or RV chambers. Normal IVC dimension. Chest X-Ray 08/27/17 09:04 IMPRESSION: 1. Significant decrease in size of the left pleural effusion, which may be resolved, following placement of 2 large bore left chest tubes. No pneumothorax. 2. Stable left lung interstitial changes, either secondary to infection or edema. 3. Stable appearance of the right chest, which is secondary to partial lung resection and chronic consolidation/collapse of the right upper lobe. D/ / Kameron Amanda MD / Kameron Amanda MD Interpreting Provider: Kameron Amanda MD X-Ray 08/27/17 15:00 IMPRESSION: Nasogastric tube is short. It should be advanced at least 10 cm D/ / Luis Link MD / Luis Link MD Interpreting Provider: Luis Link MD - Clinical Findings Intake & Output: Intake & Output 08/27/17 08/27/17 08/28/17 15:59 23:59 07:59 Intake Total 2450 / 2450 1398.2 / 1398.2 Output Total 425 / 425 210 / 210 145 / 145 Balance 2024 / 2024 1188.2 / 1188.2 -145 / -145 - VTE Documentation of Mechanical Device: Intermittent pneumatic compression device Consult Discharge Plan - Plan Referrals: Senait Wong CNP [Primary Care Provider] - 08/26/17 2:40 pm <Keara Leonard - Last Filed: 08/28/17 07:57> Date of Encounter: 08/28/17 Assessment and Plan (1) Pleural effusion, left Current Visit: No Status: Resolved (2) Congestive heart failure Current Visit: Yes Status: Chronic Objective PUL Vital signs: Last Vital Signs Temp 98.2 F 08/28/17 04:00 Pulse 65 08/28/17 06:00 Resp 22 08/28/17 07:46 BP 96/49 08/28/17 07:46 Pulse Ox 100 08/28/17 07:46 Ventilator Settings Ventilator Settings: Ventilator Settings, Last 8 Hours Ventilator Mode VC+ Ventilator Mode A/C Ventilator Mode A/C Ventilator Mode A/C Ventilator Mode VC+ Ventilator Mode A/C Ventilator Mode A/C Ventilator Mode A/C Ventilator Mode A/C Ventilator Mode A/C Ventilator Mode A/C Ventilator Mode A/C Ventilator Tidal Volume 380 Setting Ventilator Tidal Volume 380 Setting Ventilator Tidal Volume 380 Setting Ventilator Tidal Volume 380 Setting Ventilator Tidal Volume 380 Setting Ventilator Tidal Volume 380 Setting Ventilator Tidal Volume 380 Setting Ventilator Tidal Volume 380 Setting Ventilator Tidal Volume 380 Setting Ventilator Tidal Volume 380 Setting Ventilator Tidal Volume 380 Setting Ventilator Tidal Volume 380 Setting Ventilator Respiratory Rate 12 Setting Ventilator Respiratory Rate 12 Setting Ventilator Respiratory Rate 12 Setting Ventilator Respiratory Rate 12 Setting Ventilator Respiratory Rate 12 Setting Ventilator Respiratory Rate 12 Setting Ventilator Respiratory Rate 12 Setting Ventilator Respiratory Rate 12 Setting Ventilator Respiratory Rate 12 Setting Ventilator Respiratory Rate 12 Setting Ventilator Respiratory Rate 12 Setting Ventilator Respiratory Rate 12 Setting Actual Respiratory Rate 20 Actual Respiratory Rate 13 Actual Respiratory Rate 14 Actual Respiratory Rate 13 Actual Respiratory Rate 12 Actual Respiratory Rate 13 Actual Respiratory Rate 16 Actual Respiratory Rate 12 Actual Respiratory Rate 14 Actual Respiratory Rate 18 Actual Respiratory Rate 12 Positive End Expiratory 5 Pressure Positive End Expiratory 5 Pressure Positive End Expiratory 5 Pressure Positive End Expiratory 5 Pressure Positive End Expiratory 5 Pressure Positive End Expiratory 5 Pressure Positive End Expiratory 5 Pressure Positive End Expiratory 5 Pressure Positive End Expiratory 5 Pressure Positive End Expiratory 5 Pressure Positive End Expiratory 5 Pressure Positive End Expiratory 5 Pressure Peak Inspiratory Airway 23 Pressure Peak Inspiratory Airway 22 Pressure Peak Inspiratory Airway 21 Pressure Peak Inspiratory Airway 23 Pressure Peak Inspiratory Airway 24 Pressure Peak Inspiratory Airway 24 Pressure Peak Inspiratory Airway 24 Pressure Peak Inspiratory Airway 25 Pressure Peak Inspiratory Airway 25 Pressure Peak Inspiratory Airway 24 Pressure Peak Inspiratory Airway 24 Pressure Results - Laboratory Findings CBC and BMP: 08/28/17 03:19 08/28/17 03:19 ABG ABG pH 7.41 pH Units (7.32-7.45) 08/28/17 04:43 ABG pCO2 45 mmHg (35-45) 08/28/17 04:43 ABG pO2 93 mmHg (85-104) 08/28/17 04:43 ABG O2 Saturation 97 % (95-98) 08/28/17 04:43 PT/INR, D-dimer PT 13.1 Seconds (9.4-12.1) H 08/19/17 12:32 D-Dimer 4056 ng/mLFEU (0-500) H 08/19/17 12:32 Abnormal lab findings: Abnormal lab results RBC 3.75 M/mcL (3.82-4.97) L 08/28/17 03:19 Hgb 9.7 g/dL (11.5-15.4) L 08/28/17 03:19 Hct 31.5 % (35.3-44.9) L 08/28/17 03:19 MCH 25.9 pg (28.0-33.3) L 08/28/17 03:19 MCHC 30.8 g/dL (31.6-35.5) L 08/28/17 03:19 RDW 23.0 % (11.5-14.5) H 08/28/17 03:19 Nucleated RBCs/100 WBC 0.2 /100 WBC (0) H 08/27/17 09:30 Polychromasia 1+ (Not Present) A 08/24/17 06:01 Poikilocytosis 1+ (Not Present) A 08/27/17 09:30 Anisocytosis 1+ (Not Present) A 08/27/17 09:30 Microcytosis Present (Not Present) A 08/25/17 04:19 Macrocytosis Present (Not Present) A 08/25/17 04:19 Target Cells 1+ (Not Present) A 08/25/17 04:19 Ovalocytes 1+ (Not Present) A 08/24/17 06:01 Acanthocytes (Spur) 1+ (Not Present) A 08/24/17 06:01 Schistocytes 1+ (Not Present) A 08/27/17 09:30 PT 13.1 Seconds (9.4-12.1) H 08/19/17 12:32 D-Dimer 4056 ng/mLFEU (0-500) H 08/19/17 12:32 ABG HCO3 28 mEq/L (21-27) H 08/28/17 04:43 ABG Total CO2 30 mEq/L (20-26) H 08/28/17 04:43 VBG pCO2 53 mmHg (41-51) H 08/19/17 12:50 VBG pO2 63 mmHg (25-50) H 08/19/17 12:50 VBG HCO3 29 mEq/L (21-27) H 08/19/17 12:50 Chloride 108 mEq/L (98-107) H 08/28/17 03:19 BUN 27 mg/dL (8-23) H 08/28/17 03:19 Est GFR (Non-Af Amer) 57 (> 60) L 08/28/17 03:19 BUN/Creatinine Ratio 28 (6-26) H 08/28/17 03:19 Glucose 133 mg/dL (70-105) H 08/28/17 03:19 POC Glucose 125 (58-89) H 08/28/17 04:41 Calcium 8.1 mg/dL (8.6-10.3) L 08/28/17 03:19 Direct Bilirubin 0.4 mg/dL (0.0-0.2) H 08/19/17 12:32 B-Natriuretic Peptide 640 pg/mL (Less than 100) H 08/20/17 00:32 Serum Total Protein 4.7 g/dL (6.4-8.9) L 08/20/17 00:32 Albumin 2.6 g/dL (3.5-5.7) L 08/20/17 00:32 Globulin 2.1 g/dL (2.4-3.5) L 08/20/17 00:32 Urine Bilirubin Small (Negative) H 08/19/17 13:08 Ur Squamous Epith Cells Moderate per lpf (None-Few) H 08/19/17 13:08 - Microbiology Findings Microbiology Findings: Microbiology, Last 48 Hours 08/27/17 08:20 Body Fluid Culture - Preliminary Pericardial Fluid - Clinical Findings Intake & Output: Intake & Output 08/27/17 08/27/17 08/28/17 15:59 23:59 07:59 Intake Total 2450 / 2450 1398.2 / 1398.2 801.8 / 801.8 Output Total 425 / 425 235 / 235 275 / 275 Balance 2024 / 2024 1163.2 / 1163.2 526.8 / 526.8 Weight 56.6 kg - Attending Attestation I examined this patient and my medical decision-making was reviewed with the Resident Physician. I agree with the documented findings, disposition and treatment plan as described except to the extent set forth below. Patient seen and examined. Labs, radiology, chart personally reviewed. Agree with resident's history and physical, assessment, plan with following comments: MICROFILMING DOCUMENT PREPARER: Patient follows commands and she is sedated, Pulmonary: Acceptable oxygenation and ventilation. Patient failed spontaneous breathing trial and she is requiring low dose vasopressor. This might be complicated mainly because of her underlying pulmonary condition is not the best. We will attempt another spontaneous breathing trial and patient would have increased respiratory rate because of her physiology. Cardiovascular: Blood pressure is fluctuating and she is requiring a low dose of Levophed GI: Nutrition per dietary and GI prophylaxis per routine Heme: DVT prophylaxis per routine ID: Continue antibiotics and plan to de-escalation Renal; urine out put and renal funtion reviewed Endorcine: blood glucose is monitored Lines: all lines checked and no evidence of infections Skin: skin care to prevent pressure ulcers per nursing routine care
[2017-08-28] MEDS: Levofloxacin 750 MG/150 ML 750 MG/150 ML BAG IVPB SCH (01:05)
[2017-08-28] MEDS: Dexmedetomidine HCl 400 MCG/100 ML MLS IVC PRN (02:18)
[2017-08-28 03:33] LABS: Basophils % 0.2 %; Hematocrit 31.5 % (35.3-44.9); Hemoglobin 9.7 g/dL (11.5-15.4); Immature Granulocytes % 1.7 % (0-4); Lymphocytes # 1.2 K/mcL (0.6-4.6); Mean Corpuscular HGB Conc 30.8 g/dL (31.6-35.5); Mean Corpuscular Hemoglobin 25.9 pg (28.0-33.3); Mean Platelet Volume 10.4 fL (9.4-12.4); Monocytes % 11.4 %; Neutrophils # 6.1 K/mcL (1.6-8.9); Platelet Count 188 K/mcL (140-400); Red Blood Count 3.75 M/mcL (3.82-4.97); Segmented Neutrophils % 72.7 %
[2017-08-28 04:31] LABS: BUN/Creatinine Ratio 28 (6-26); Blood Urea Nitrogen 27 mg/dL (8-23); Calcium 8.1 mg/dL (8.6-10.3); Carbon Dioxide 25 mEq/L (23-29); Chloride 108 mEq/L (98-107); Glucose 133 mg/dL (70-105); Osmolality,Calculated 295 (280-300); Potassium 4.9 mEq/L (3.5-5.1); Sodium 139 mEq/L (136-145); eGFR For African Americans > 60 (> 60); eGFR For Non-African Americans 57 (> 60)
[2017-08-28 04:48] LABS: ABG Base Excess 3 mEq/L (-2 to 3); ABG HCO3 28 mEq/L (21-27); ABG Oxygen Saturation 97 % (95-98); ABG PCO2 45 mmHg (35-45); ABG PH 7.41 pH Units (7.32-7.45); ABG PO2 93 mmHg (85-104); ABG TCO2 30 mEq/L (20-26); Blood Gas Modality VC; Blood Gas Respiration Rate 12; Blood Gas VT 380 cc
[2017-08-28] MEDS: Ringers Solution, Lactated 1,000 ML IVC SCH ×2 (05:14→16:00)
[2017-08-28] MEDS: Chlorhexidine Rinse 15 ML MOUTHWASH MM SCH ×2 (08:35→21:49)
[2017-08-28] MEDS: predniSONE 20 MG TABLET PO SCH (08:36)
[2017-08-28] MEDS: Aspirin 81 MG TAB.CHEW PO SCH (08:36)
[2017-08-28] MEDS: ERLOTINIB HCL 100 MG PO SCH (08:36)
[2017-08-28] MEDS: Folic Acid 1 MG TABLET PO SCH (08:36)
[2017-08-28] MEDS: Gabapentin 300 MG CAPSULE PO SCH ×2 (08:36→19:47)
[2017-08-28] MEDS: Famotidine 20 MG TABLET PO SCH (08:36)
[2017-08-28] MEDS: Pantoprazole 40 MG VIAL IVP SCH ×2 (08:36→21:49)
[2017-08-28] MEDS: Loratadine 10 MG TABLET PO SCH (08:36)
--- NOTE | 2017-08-28 09:28 | Cardiothoracic Progress Note ---
Date of Encounter: 08/28/17 Time of Encounter: 09:24 - Assessment and plan (1) Pericardial effusion Current Visit: Yes Status: Acute The patient remained him in a stable overnight. She remains intubated and sedated. She converted from atrial fibrillation to normal sinus rhythm last evening on an amiodarone drip. The patient's sedation will be lifted and the patient extubated at the discretion of the footwear sales coordinator. The chest tube should remain on suction for several days in order to facilitate complete drainage of the fluid collections and obliteration of the pericardial space. The cytology and pathology of the fluids are pending. The assessment and plan as outlined above was discussed with the patient and/or family members who expressed understanding and agreement. All questions were answered. - Subjective Procedure(s) Performed: POD#1 S/P Subxiphoid pericardial window Interval history: The patient remains intubated and sedated. She remained hemodynamically stable overnight. Vital Signs, Last 4 Hours Temp Pulse Resp BP Pulse Ox 08/28/17 09:18 71 13 85/46 99 08/28/17 08:17 68 13 84/48 100 08/28/17 08:00 98.2 F 08/28/17 07:46 22 96/49 100 08/28/17 06:16 13 109/56 99 08/28/17 06:00 65 14 108/56 98 08/28/17 05:30 64 13 92/48 97 Oxgyen Flow Rate Oxygen Flow Rate (LPM) 4 Clinical Data, last 8 Hours Output, Chest Tube Drainage 10 Amount [Right Anterior Chest # 2] Output, Chest Tube Drainage 30 Amount [Right Anterior Chest # 2] Output, Chest Tube Drainage 30 Amount [Left Upper Anterior Chest #1] Output, Chest Tube Drainage 50 Amount [Left Upper Anterior Chest #1] Weight 08/26/17 08/27/17 08/28/17 23:59 23:59 23:59 Weight 55.7 kg 56.6 kg - Physical Examination General: Conversant, No Apparent Distress Neck: No JVD, Normal carotid pulses Cardiac: Reg Rate and Rhythm, Normal S1 and S2, No Murmur Incision: No signs of infection, Dry/intact dressing Chest tubes: Minimal drainage, Other (No air leak) Lungs: Normal Breath Sounds (Left lung oshea), Decreased breath sounds (Right lung oshea (unchanged)) Neuro: Other (Intubated and sedated) Vascular: Normal capillary refill Extremities: No Clubbing, No Cyanosis, No Edema - Labs 08/28/17 03:19 08/28/17 03:19 Lab Results, Last 24 hours 08/27/17 08/27/17 08/28/17 09:30 09:30 03:19 WBC 10.4 8.3 Hgb 9.7 L 9.7 L Hct 32.3 L 31.5 L Plt Count 243 188 Sodium 137 Potassium 4.8 Chloride 102 Carbon Dioxide 28 BUN 20 Creatinine 0.77 Glucose 107 H Calcium 8.9 08/28/17 03:19 WBC Hgb Hct Plt Count Sodium 139 Potassium 4.9 Chloride 108 H Carbon Dioxide 25 BUN 27 H Creatinine 0.97 Glucose 133 H Calcium 8.1 L - Imaging Chest Xray: image reviewed (No left pneumothorax. Complete opacification of the right lung oshea, unchanged.) - VTE Documentation of Mechanical Device: Intermittent pneumatic compression device Consult Discharge Plan - Plan Referrals: Senait Wong, SHAKE SAWYER [Primary Care Provider] - 08/26/17 2:40 pm
[2017-08-28] MEDS: Amiodarone Premix 360 MG/200 ML BAG IVC SCH ×2 (11:17→22:01)
[2017-08-28] MEDS: Norepinephrine 4 MG in D5% in Water 250 ML IVC SCH (16:01)
[2017-08-28] MEDS: FentaNYL (PF) 1,000 MCG in 0.9 % Sodium Chloride 80 ML IVC SCH (16:02)
--- NOTE | 2017-08-28 22:01 | Pulmonology Progress Note ---
<Amarjit Ortiz - Last Filed: 08/29/17 07:30> Date of Encounter: 08/29/17 Time of Encounter: 07:30 Assessment and Plan (1) Acute and chronic respiratory failure Current Visit: Yes Status: Acute 1. Acute and chronic respiratory failure. In the setting of right middle and lower lobectomy, chronic RUL consolidation/ collapse, non-small cell lung cancer, COPD. Intubated. Failed CPAP x2. Sedated: Precedex Analgesic: Fentanyl Consider re-attempting wean to CPAP trial today. Extubate to nasal cannulae pending CPAP trial. 2. HCAP Left basilar atelectasis. Continue empiric Levaquin (Day 10). De-escilated from Levaquin, vanc, zosyn. 3. Pleural effusion on left Stable on CXR. No pneumothorax. s/p thoracic chest tube insertion 08/28: 350mL out, sanguineous. s/p thoracocentesis 08/19: 1L straw colored fluid. 4. Pericardial effusion Post-op Ancef. Echo 08/26/17: LVEF 60%. mod-lg pericardial effusion with greatest measurement 1 /8cm at LV boarder. No tamponade. Subxiphoid pericardial window 08/27/17: appx 270mL straw-colored fluid. Pericardial fluid transudative. Culture pending. Pericardial window tissue sent for permanent section. Mediastinal drain: 114mL out - sanguineous. 5. Atrial fibrillation with RVR Converted yeter day from NSR to A. Fib RVR while on amiodarone drip. BP labile while in A. Fib requiring varying amounts of low dose levophed through midline. Continue amiodarone until extubated. Then consider conversion from IV to PO amiodarone. 6. Non-small cell lung cancer Known hx of non-small cell lung cancer. Follows Dr. Valadez. Remote right sided lobectomy. CTA chest shows right middle and lower lobectomy. Qualifiers: Respiratory failure complication: hypoxia Qualified Code(s): J96.21 - Acute and chronic respiratory failure with hypoxia (2) HCAP (healthcare-associated pneumonia) Current Visit: Yes Status: Acute (3) Pleural effusion on left Current Visit: Yes Status: Acute (4) Pericardial effusion Current Visit: Yes Status: Acute (5) Atrial fibrillation with RVR Current Visit: Yes Status: Chronic (6) Non-small cell lung cancer Current Visit: Yes Status: Chronic Qualifiers: Laterality: left Qualified Code(s): C34.92 - Malignant neoplasm of unspecified part of left bronchus or lung Subjective Principal diagnosis: Pericarial Effusion+Recurrent L pleural effusion Interval history: Mrs. Wong, 72yo female, presented to ED 08/29/17 for progressive dyspnea with exertion. She carries a past medical history of non-small cell lung carcinoma, s/p right lobectomy, leukemia, afib. Hospital day 10 No acute events overnight. Day 2 s/p pericardial window. Day 10 s/p thoracocentesis. Intubated 08/27 for pericardial window & Lt chest tube placement, remains intubated. Failed CPAP x2. She continues to require minimal levophed through a right UE midline while in A- Fib due to labile blood pressures. Amiodarone drip continues. She has converted to NSR with amiodarone drip; while in NSR her blood pressures were stable in the 120's-130's without pressor support. Patient's blood glucose dipped to 60 overnight; insulin and hypoglycemia orders placed. Objective PUL Vital signs: Last Vital Signs Temp 98.4 F 08/28/17 20:00 Pulse 122 08/28/17 21:00 Resp 26 08/28/17 21:46 BP 85/58 08/28/17 21:00 Pulse Ox 98 08/28/17 21:46 Ventilator Settings Ventilator Settings: Ventilator Settings, Last 8 Hours Ventilator Mode VC+ Ventilator Mode VC+ Ventilator Mode VC+ Ventilator Mode VC+ Ventilator Mode VC+ Ventilator Mode VC+ Ventilator Mode VC+ Ventilator Mode VC+ Ventilator Mode VC+ Ventilator Mode VC+ Ventilator Mode VC+ Ventilator Mode VC+ Ventilator Tidal Volume 380 Setting Ventilator Tidal Volume 380 Setting Ventilator Tidal Volume 380 Setting Ventilator Tidal Volume 380 Setting Ventilator Tidal Volume 380 Setting Ventilator Tidal Volume 380 Setting Ventilator Tidal Volume 380 Setting Ventilator Tidal Volume 380 Setting Ventilator Tidal Volume 380 Setting Ventilator Tidal Volume 380 Setting Ventilator Tidal Volume 380 Setting Ventilator Tidal Volume 380 Setting Ventilator Respiratory Rate 12 Setting Ventilator Respiratory Rate 12 Setting Ventilator Respiratory Rate 12 Setting Ventilator Respiratory Rate 12 Setting Ventilator Respiratory Rate 12 Setting Ventilator Respiratory Rate 12 Setting Ventilator Respiratory Rate 12 Setting Ventilator Respiratory Rate 12 Setting Ventilator Respiratory Rate 12 Setting Ventilator Respiratory Rate 12 Setting Ventilator Respiratory Rate 12 Setting Ventilator Respiratory Rate 12 Setting Actual Respiratory Rate 26 Actual Respiratory Rate 28 Actual Respiratory Rate 34 Actual Respiratory Rate 24 Actual Respiratory Rate 33 Actual Respiratory Rate 25 Actual Respiratory Rate 28 Actual Respiratory Rate 12 Actual Respiratory Rate 30 Actual Respiratory Rate 15 Positive End Expiratory 5 Pressure Positive End Expiratory 5 Pressure Positive End Expiratory 5 Pressure Positive End Expiratory 5 Pressure Positive End Expiratory 5 Pressure Positive End Expiratory 5 Pressure Positive End Expiratory 5 Pressure Positive End Expiratory 5 Pressure Positive End Expiratory 5 Pressure Positive End Expiratory 5 Pressure Positive End Expiratory 5 Pressure Positive End Expiratory 5 Pressure Peak Inspiratory Airway 24 Pressure Peak Inspiratory Airway 24 Pressure Peak Inspiratory Airway 26 Pressure Peak Inspiratory Airway 30 Pressure Peak Inspiratory Airway 28 Pressure Peak Inspiratory Airway 28 Pressure Peak Inspiratory Airway 28 Pressure Peak Inspiratory Airway 27 Pressure Peak Inspiratory Airway 25 Pressure Peak Inspiratory Airway 34 Pressure Peak Inspiratory Airway 26 Pressure Results - Laboratory Findings CBC and BMP: 08/29/17 04:05 08/29/17 04:05 ABG ABG pH 7.41 pH Units (7.32-7.45) 08/28/17 04:43 ABG pCO2 45 mmHg (35-45) 08/28/17 04:43 ABG pO2 93 mmHg (85-104) 08/28/17 04:43 ABG O2 Saturation 97 % (95-98) 08/28/17 04:43 PT/INR, D-dimer PT 13.1 Seconds (9.4-12.1) H 08/19/17 12:32 D-Dimer 4056 ng/mLFEU (0-500) H 08/19/17 12:32 Abnormal lab findings: Abnormal lab results RBC 3.75 M/mcL (3.82-4.97) L 08/28/17 03:19 Hgb 9.7 g/dL (11.5-15.4) L 08/28/17 03:19 Hct 31.5 % (35.3-44.9) L 08/28/17 03:19 MCH 25.9 pg (28.0-33.3) L 08/28/17 03:19 MCHC 30.8 g/dL (31.6-35.5) L 08/28/17 03:19 RDW 23.0 % (11.5-14.5) H 08/28/17 03:19 Nucleated RBCs/100 WBC 0.2 /100 WBC (0) H 08/27/17 09:30 Polychromasia 1+ (Not Present) A 08/24/17 06:01 Poikilocytosis 1+ (Not Present) A 08/27/17 09:30 Anisocytosis 1+ (Not Present) A 08/27/17 09:30 Microcytosis Present (Not Present) A 08/25/17 04:19 Macrocytosis Present (Not Present) A 08/25/17 04:19 Target Cells 1+ (Not Present) A 08/25/17 04:19 Ovalocytes 1+ (Not Present) A 08/24/17 06:01 Acanthocytes (Spur) 1+ (Not Present) A 08/24/17 06:01 Schistocytes 1+ (Not Present) A 08/27/17 09:30 PT 13.1 Seconds (9.4-12.1) H 08/19/17 12:32 D-Dimer 4056 ng/mLFEU (0-500) H 08/19/17 12:32 ABG HCO3 28 mEq/L (21-27) H 08/28/17 04:43 ABG Total CO2 30 mEq/L (20-26) H 08/28/17 04:43 VBG pCO2 53 mmHg (41-51) H 08/19/17 12:50 VBG pO2 63 mmHg (25-50) H 08/19/17 12:50 VBG HCO3 29 mEq/L (21-27) H 08/19/17 12:50 Chloride 108 mEq/L (98-107) H 08/28/17 03:19 BUN 27 mg/dL (8-23) H 08/28/17 03:19 Est GFR (Non-Af Amer) 57 (> 60) L 08/28/17 03:19 BUN/Creatinine Ratio 28 (6-26) H 08/28/17 03:19 Glucose 133 mg/dL (70-105) H 08/28/17 03:19 POC Glucose 125 (58-89) H 08/28/17 04:41 Calcium 8.1 mg/dL (8.6-10.3) L 08/28/17 03:19 Direct Bilirubin 0.4 mg/dL (0.0-0.2) H 08/19/17 12:32 B-Natriuretic Peptide 640 pg/mL (Less than 100) H 08/20/17 00:32 Serum Total Protein 4.7 g/dL (6.4-8.9) L 08/20/17 00:32 Albumin 2.6 g/dL (3.5-5.7) L 08/20/17 00:32 Globulin 2.1 g/dL (2.4-3.5) L 08/20/17 00:32 Urine Bilirubin Small (Negative) H 08/19/17 13:08 Ur Squamous Epith Cells Moderate per lpf (None-Few) H 08/19/17 13:08 - Microbiology Findings Microbiology Findings: Microbiology, Last 48 Hours 08/27/17 08:20 Body Fluid Culture - Preliminary Pericardial Fluid 08/27/17 08:20 Acid Fast Stain - Final Pericardial Fluid - Clinical Findings Intake & Output: Intake & Output 08/28/17 08/28/17 08/28/17 07:59 15:59 23:59 Intake Total 801.8 / 801.8 200 / 200 1131.4 / 1131.4 Output Total 275 / 275 299 / 299 105 / 105 Balance 526.8 / 526.8 -99 / -99 1026.4 / 1026.4 Weight 56.6 kg - VTE Documentation of Mechanical Device: Intermittent pneumatic compression device Consult Discharge Plan - Plan Referrals: Senait Wong, [employer] [Primary Care Provider] - 08/26/17 2:40 pm <Keara Leoanrd - Last Filed: 08/29/17 10:04> Date of Encounter: 08/29/17 Assessment and Plan (1) Pleural effusion, left Current Visit: No Status: Resolved (2) Congestive heart failure Current Visit: Yes Status: Chronic Objective PUL Vital signs: Last Vital Signs Temp 98.1 F 08/29/17 08:11 Pulse 106 08/29/17 09:20 Resp 12 08/29/17 09:20 BP 89/56 08/29/17 09:20 Pulse Ox 100 08/29/17 09:20 Ventilator Settings Ventilator Settings: Ventilator Settings, Last 8 Hours Ventilator Mode VC+ Ventilator Mode VC+ Ventilator Mode VC+ Ventilator Mode VC+ Ventilator Mode VC+ Ventilator Mode VC+ Ventilator Mode VC+ Ventilator Mode VC+ Ventilator Tidal Volume 380 Setting Ventilator Tidal Volume 380 Setting Ventilator Tidal Volume 380 Setting Ventilator Tidal Volume 380 Setting Ventilator Tidal Volume 380 Setting Ventilator Tidal Volume 380 Setting Ventilator Tidal Volume 380 Setting Ventilator Tidal Volume 380 Setting Ventilator Respiratory Rate 12 Setting Ventilator Respiratory Rate 12 Setting Ventilator Respiratory Rate 12 Setting Ventilator Respiratory Rate 12 Setting Ventilator Respiratory Rate 12 Setting Ventilator Respiratory Rate 12 Setting Ventilator Respiratory Rate 12 Setting Ventilator Respiratory Rate 12 Setting Actual Respiratory Rate 12 Actual Respiratory Rate 22 Actual Respiratory Rate 15 Actual Respiratory Rate 16 Actual Respiratory Rate 16 Actual Respiratory Rate 28 Actual Respiratory Rate 12 Positive End Expiratory 5 Pressure Positive End Expiratory 5 Pressure Positive End Expiratory 5 Pressure Positive End Expiratory 5 Pressure Positive End Expiratory 5 Pressure Positive End Expiratory 5 Pressure Positive End Expiratory 5 Pressure Positive End Expiratory 5 Pressure Peak Inspiratory Airway 25 Pressure Peak Inspiratory Airway 25 Pressure Peak Inspiratory Airway 25 Pressure Peak Inspiratory Airway 23 Pressure Peak Inspiratory Airway 22 Pressure Peak Inspiratory Airway 25 Pressure Peak Inspiratory Airway 23 Pressure Peak Inspiratory Airway 24 Pressure Results - Laboratory Findings CBC and BMP: 08/29/17 04:05 08/29/17 04:05 ABG ABG pH 7.41 pH Units (7.32-7.45) 08/28/17 04:43 ABG pCO2 45 mmHg (35-45) 08/28/17 04:43 ABG pO2 93 mmHg (85-104) 08/28/17 04:43 ABG O2 Saturation 97 % (95-98) 08/28/17 04:43 PT/INR, D-dimer PT 13.1 Seconds (9.4-12.1) H 08/19/17 12:32 D-Dimer 4056 ng/mLFEU (0-500) H 08/19/17 12:32 Abnormal lab findings: Abnormal lab results WBC 12.6 K/mcL (4.3-11.1) H D 08/29/17 04:05 Hgb 9.7 g/dL (11.5-15.4) L 08/29/17 04:05 Hct 31.5 % (35.3-44.9) L 08/29/17 04:05 MCV 82.5 fL (83.0-100.0) L 08/29/17 04:05 MCH 25.4 pg (28.0-33.3) L 08/29/17 04:05 MCHC 30.8 g/dL (31.6-35.5) L 08/29/17 04:05 RDW 23.1 % (11.5-14.5) H 08/29/17 04:05 Monocytes # 1.4 K/mcL (0.0-1.3) H 08/29/17 04:05 Nucleated RBCs/100 WBC 0.2 /100 WBC (0) H 08/29/17 04:05 Platelet Estimate Increased (Normal) H 08/29/17 04:05 Polychromasia 1+ (Not Present) A 08/24/17 06:01 Poikilocytosis 1+ (Not Present) A 08/29/17 04:05 Anisocytosis 1+ (Not Present) A 08/29/17 04:05 Microcytosis Present (Not Present) A 08/25/17 04:19 Macrocytosis Present (Not Present) A 08/25/17 04:19 Target Cells 1+ (Not Present) A 08/25/17 04:19 Ovalocytes 1+ (Not Present) A 08/24/17 06:01 Armando Cells 1+ (Not Present) A 08/29/17 04:05 Acanthocytes (Spur) 1+ (Not Present) A 08/24/17 06:01 Schistocytes 1+ (Not Present) A 08/27/17 09:30 PT 13.1 Seconds (9.4-12.1) H 08/19/17 12:32 D-Dimer 4056 ng/mLFEU (0-500) H 08/19/17 12:32 ABG HCO3 28 mEq/L (21-27) H 08/28/17 04:43 ABG Total CO2 30 mEq/L (20-26) H 08/28/17 04:43 VBG pCO2 53 mmHg (41-51) H 08/19/17 12:50 VBG pO2 63 mmHg (25-50) H 08/19/17 12:50 VBG HCO3 29 mEq/L (21-27) H 08/19/17 12:50 BUN 31 mg/dL (8-23) H 08/29/17 04:05 Est GFR ( Amer) 54 (> 60) L 08/29/17 04:05 Est GFR (Non-Af Amer) 45 (> 60) L 08/29/17 04:05 Glucose 116 mg/dL (70-105) H 08/29/17 04:05 Calcium 8.1 mg/dL (8.6-10.3) L 08/29/17 04:05 Direct Bilirubin 0.4 mg/dL (0.0-0.2) H 08/19/17 12:32 B-Natriuretic Peptide 640 pg/mL (Less than 100) H 08/20/17 00:32 Serum Total Protein 4.7 g/dL (6.4-8.9) L 08/20/17 00:32 Albumin 2.6 g/dL (3.5-5.7) L 08/20/17 00:32 Globulin 2.1 g/dL (2.4-3.5) L 08/20/17 00:32 Urine Bilirubin Small (Negative) H 08/19/17 13:08 Ur Squamous Epith Cells Moderate per lpf (None-Few) H 08/19/17 13:08 - Microbiology Findings Microbiology Findings: Microbiology, Last 48 Hours 08/28/17 22:20 Sputum Culture - Preliminary Sputum 08/27/17 08:20 Body Fluid Culture - Preliminary Pericardial Fluid 08/27/17 08:20 Acid Fast Stain - Final Pericardial Fluid - Clinical Findings Intake & Output: Intake & Output 08/28/17 08/29/17 08/29/17 23:59 07:59 15:59 Intake Total 1331.4 / 1331.4 1000 / 1000 Output Total 243 / 243 130 / 130 170 / 170 Balance 1088.4 / 1088.4 870 / 870 -170 / -170 Weight 61.2 kg - Attending Attestation I examined this patient and my medical decision-making was reviewed with the Resident Physician. I agree with the documented findings, disposition and treatment plan as described except to the extent set forth below. Patient seen and examined. Labs, radiology, chart personally reviewed. Agree with resident's history and physical, assessment, plan with following comments: [employer] DIRECTOR: Patient follows commands of sedation, Pulmonary: Acceptable oxygenation and ventilation, however she didn't tolerate SBT and this could be multifactorial. Continue vent support and empirically broaden her antibiotic coverage and diuresis if her BP allows. Cardiovascular: Still requiring low dose Levophed. Give patient a bolus fluid and check echo perhaps tomorrow. GI: Nutrition per dietary and GI prophylaxis per routine. Heme: DVT prophylaxis per routine ID: Continue antibiotics and plan to de-escalation Renal; urine out put and renal funtion reviewed Endorcine: blood glucose is monitored Lines: all lines checked and no evidence of infections Skin: skin care to prevent pressure ulcers per nursing routine care. She stil requiring only low dose levophed on and off, if demand is more, will place central line.
[2017-08-29] MEDS ORDERED: *HR* Dextrose 50 % in Water (Syg) 50 ML SYRINGE IVP PRN (01:41)
[2017-08-29] MEDS ORDERED: D5% in Water 1,000 ML IVC PRN (01:41)
[2017-08-29] MEDS ORDERED: Dextrose Gel 15 GM/37.5 ML TUBE PO PRN ×2 (01:41)
[2017-08-29] MEDS: Ringers Solution, Lactated 1,000 ML IVC SCH ×3 (02:00→22:07)
[2017-08-29 04:23] LABS: Basophils % 0.2 %; Hematocrit 31.5 % (35.3-44.9); Hemoglobin 9.7 g/dL (11.5-15.4); Immature Granulocytes % 1.6 % (0-4); Lymphocytes # 2.2 K/mcL (0.6-4.6); Lymphocytes % 17.5 %; Mean Corpuscular HGB Conc 30.8 g/dL (31.6-35.5); Mean Corpuscular Hemoglobin 25.4 pg (28.0-33.3); Mean Corpuscular Volume 82.5 fL (83.0-100.0); Mean Platelet Volume 10.1 fL (9.4-12.4); Monocytes # 1.4 K/mcL (0.0-1.3); Monocytes % 11.1 %; Nucleated Red Blood Cells 0.2 /100 WBC (0); Platelet Count 198 K/mcL (140-400); Red Blood Count 3.82 M/mcL (3.82-4.97); Red Cell Distribution Width 23.1 % (11.5-14.5); Segmented Neutrophils % 69.6 %
[2017-08-29 04:36] LABS: Neutrophils # 8.8 K/mcL (1.6-8.9)
[2017-08-29 04:58] LABS: Anisocytosis 1+ (Not Present); Burr Cells 1+ (Not Present); Platelet Estimate Increased (Normal); Poikilocytosis 1+ (Not Present)
[2017-08-29 05:19] LABS: Calcium 8.1 mg/dL (8.6-10.3); Potassium 4.3 mEq/L (3.5-5.1)
[2017-08-29] MEDS: Insulin LISPRO 300 UNITS/3 ML VIAL SQ SCH ×3 (06:16→18:11)
--- NOTE | 2017-08-29 07:53 | Cardiothoracic Progress Note ---
Date of Encounter: 08/29/17 Time of Encounter: 07:50 - Assessment and plan (1) Pericardial effusion Current Visit: Yes Status: Acute The patient remained hemodynamically stable overnight. She remains intubated and sedated. The patient's sedation will be lifted and the patient extubated at the discretion of the unit coordinator. The chest tube should remain on suction for several days in order to facilitate complete drainage of the fluid collections and obliteration of the pericardial space. The cytology and pathology of the fluids are pending. The assessment and plan as outlined above was discussed with the patient and/or family members who expressed understanding and agreement. All questions were answered. - Subjective Procedure(s) Performed: POD#2 S/P Subxiphoid pericardial window Interval history: The patient remains intubated and sedated. She remained hemodynamically stable overnight. Vital Signs, Last 4 Hours Pulse Resp BP Pulse Ox 08/29/17 06:24 20 87/55 96 08/29/17 06:00 93 12 84/56 98 08/29/17 05:19 12 94/57 100 08/29/17 05:00 102 12 91/56 97 08/29/17 04:00 102 13 111/64 98 Oxgyen Flow Rate Oxygen Flow Rate (LPM) 4 Clinical Data, last 8 Hours Output, Chest Tube Drainage 40 Amount [Right Anterior Chest # 2] Output, Chest Tube Drainage 40 Amount [Left Upper Anterior Chest #1] Weight 08/27/17 08/28/17 08/29/17 23:59 23:59 23:59 Weight 56.6 kg 61.2 kg - Physical Examination General: Conversant, No Apparent Distress Neck: No JVD, Normal carotid pulses Cardiac: Reg Rate and Rhythm, Normal S1 and S2, No Murmur Chest tubes: Minimal drainage, Other (No air leak in either chest tube) Lungs: Normal Breath Sounds (Left lung oshea), Decreased breath sounds (Right dlung oshea) Neuro: Alert and responsive, No focal deficits noted Vascular: Normal capillary refill Extremities: No Clubbing, No Cyanosis, No Edema - Labs 08/29/17 04:05 08/29/17 04:05 Lab Results, Last 24 hours 08/29/17 08/29/17 04:05 04:05 WBC 12.6 H D Hgb 9.7 L Hct 31.5 L Plt Count 198 Sodium 138 Potassium 4.3 Chloride 106 Carbon Dioxide 26 BUN 31 H Creatinine 1.19 Glucose 116 H Calcium 8.1 L - Imaging Chest Xray: image reviewed (No pneumothorax. Increased pulmonary vascularity in the left lung oshea. Complete opacification in the right lung oshea, unchanged.) - VTE Documentation of Mechanical Device: Intermittent pneumatic compression device Consult Discharge Plan - Plan Referrals: Senait Wong CNP [Primary Care Provider] - 08/26/17 2:40 pm
[2017-08-29] MEDS ORDERED: 0.9 % Sodium Chloride 500 ML IVC ONE (08:07)
[2017-08-29] MEDS: Pantoprazole 40 MG VIAL IVP SCH ×2 (08:22→20:15)
[2017-08-29] MEDS: Chlorhexidine Rinse 15 ML MOUTHWASH MM SCH ×2 (08:22→20:15)
[2017-08-29] MEDS: Aspirin 81 MG TAB.CHEW PO SCH (08:22)
[2017-08-29] MEDS: Folic Acid 1 MG TABLET PO SCH (08:23)
[2017-08-29] MEDS: Loratadine 10 MG TABLET PO SCH (08:23)
[2017-08-29] MEDS: ERLOTINIB HCL 100 MG PO SCH (08:23)
[2017-08-29] MEDS: Gabapentin 300 MG CAPSULE PO SCH ×2 (08:23→20:17)
[2017-08-29] MEDS: Famotidine 20 MG TABLET PO SCH (08:23)
[2017-08-29] MEDS: predniSONE 20 MG TABLET PO SCH (08:23)
[2017-08-29] MEDS: Amiodarone Premix 360 MG/200 ML BAG IVC SCH ×2 (11:24→22:08)
[2017-08-29] MEDS: FentaNYL (PF) 1,000 MCG in 0.9 % Sodium Chloride 80 ML IVC SCH (15:23)
[2017-08-29] MEDS: Norepinephrine 4 MG in D5% in Water 250 ML IVC SCH (20:18)
--- NOTE | 2017-08-29 23:18 | Pulmonology Progress Note ---
<Amarjit Ortiz Dominick - Last Filed: 08/30/17 06:18> Date of Encounter: 08/30/17 Time of Encounter: 06:18 Assessment and Plan (1) Acute and chronic respiratory failure Current Visit: Yes Status: Acute 1. Acute and chronic respiratory failure. In the setting of right middle and lower lobectomy, chronic RUL consolidation/ collapse, non-small cell lung cancer, COPD. Intubated. Failed CPAP yesterday. Sedated: Precedex Analgesic: Fentanyl Consider re-attempting wean to CPAP trial today. Extubate to nasal cannulae pending CPAP trial. Echo is pending. 2. HCAP Left basilar atelectasis. Continue empiric Levaquin (Day 11). De-escilated from Levaquin, vanc, zosyn. 3. Pleural effusion on left Stable on CXR. No pneumothorax. s/p thoracic chest tube insertion 08/28: 350mL out, sanguineous. s/p thoracocentesis 08/19: 1L straw colored fluid. 4. Pericardial effusion Post-op Ancef. Echo 08/26/17: LVEF 60%. mod-lg pericardial effusion with greatest measurement 1 /8cm at LV boarder. No tamponade. Subxiphoid pericardial window 08/27/17: appx 270mL straw-colored fluid. Pericardial fluid transudative. Culture pending. Pericardial window tissue sent for permanent section. Mediastinal drain: 114mL out - sanguineous. 5. Atrial fibrillation with RVR Converted yeter day from NSR to A. Fib RVR while on amiodarone drip. BP labile while in A. Fib requiring varying amounts of low dose levophed through midline. Continue amiodarone until extubated. Then consider conversion from IV to PO amiodarone. 6. Non-small cell lung cancer Known hx of non-small cell lung cancer. Follows Dr. Valadez. Remote right sided lobectomy. CTA chest shows right middle and lower lobectomy. Qualifiers: Respiratory failure complication: hypoxia Qualified Code(s): J96.21 - Acute and chronic respiratory failure with hypoxia (2) HCAP (healthcare-associated pneumonia) Current Visit: Yes Status: Acute (3) Pleural effusion on left Current Visit: Yes Status: Acute (4) Pericardial effusion Current Visit: Yes Status: Acute (5) Atrial fibrillation with RVR Current Visit: Yes Status: Chronic (6) Non-small cell lung cancer Current Visit: Yes Status: Chronic Qualifiers: Laterality: left Qualified Code(s): C34.92 - Malignant neoplasm of unspecified part of left bronchus or lung Subjective Principal diagnosis: Pericarial Effusion+Recurrent L pleural effusion Interval history: Mrs. Wong, 72yo female, presented to ED 08/29/17 for progressive dyspnea with exertion. She carries a past medical history of non-small cell lung carcinoma, s/p right lobectomy, leukemia, afib. Hospital day 11 No acute events overnight. Day 3 s/p pericardial window. Day 11 s/p thoracocentesis. Intubated 08/27 for pericardial window & Lt chest tube placement, remains intubated. Failed CPAP x2. She continues to require minimal levophed through a right UE midline while in A- Fib due to labile blood pressures. Amiodarone drip continues. She has converted to NSR with amiodarone drip; while in NSR her blood pressures were stable in the 120's-130's without pressor support. Patient's blood glucose has done well with hypoglcemic protocol. She continues to fail CPAP trial. Objective PUL Vital signs: Last Vital Signs Temp 99.1 F 08/29/17 21:12 Pulse 98 08/29/17 22:00 Resp 12 08/29/17 22:00 BP 91/52 08/29/17 22:00 Pulse Ox 100 08/29/17 22:00 General appearance: no acute distress Eyes: nonicteric ENT: oropharynx moist Neck: supple Effort: normal Auscultation: right: diminished breath sounds Cardiovascular: regular rate and rhythm Gastrointestinal: normoactive bowel sounds, soft, non-tender, non-distended Integumentary: normal Extremities: no cyanosis, no edema, no clubbing, pink and warm, pulses normal Musculoskeletal: no deformities unable to assess due to mental status mood appropriate Ventilator Settings Ventilator Settings: Ventilator Settings, Last 8 Hours Ventilator Mode VC+ Ventilator Mode VC+ Ventilator Mode VC+ Ventilator Mode VC+ Ventilator Mode VC+ Ventilator Mode VC+ Ventilator Mode VC+ Ventilator Mode VC+ Ventilator Mode VC+ Ventilator Mode VC+ Ventilator Mode VC+ Ventilator Mode VC+ Ventilator Tidal Volume 380 Setting Ventilator Tidal Volume 380 Setting Ventilator Tidal Volume 380 Setting Ventilator Tidal Volume 380 Setting Ventilator Tidal Volume 380 Setting Ventilator Tidal Volume 380 Setting Ventilator Tidal Volume 380 Setting Ventilator Tidal Volume 380 Setting Ventilator Tidal Volume 380 Setting Ventilator Tidal Volume 380 Setting Ventilator Tidal Volume 380 Setting Ventilator Tidal Volume 380 Setting Ventilator Respiratory Rate 12 Setting Ventilator Respiratory Rate 12 Setting Ventilator Respiratory Rate 12 Setting Ventilator Respiratory Rate 12 Setting Ventilator Respiratory Rate 12 Setting Ventilator Respiratory Rate 12 Setting Ventilator Respiratory Rate 12 Setting Ventilator Respiratory Rate 12 Setting Ventilator Respiratory Rate 12 Setting Ventilator Respiratory Rate 12 Setting Ventilator Respiratory Rate 12 Setting Ventilator Respiratory Rate 12 Setting Actual Respiratory Rate 12 Actual Respiratory Rate 17 Actual Respiratory Rate 13 Actual Respiratory Rate 16 Actual Respiratory Rate 16 Actual Respiratory Rate 24 Actual Respiratory Rate 21 Actual Respiratory Rate 22 Actual Respiratory Rate 16 Actual Respiratory Rate 13 Actual Respiratory Rate 26 Positive End Expiratory 5 Pressure Positive End Expiratory 5 Pressure Positive End Expiratory 5 Pressure Positive End Expiratory 5 Pressure Positive End Expiratory 5 Pressure Positive End Expiratory 5 Pressure Positive End Expiratory 5 Pressure Positive End Expiratory 5 Pressure Positive End Expiratory 5 Pressure Positive End Expiratory 5 Pressure Positive End Expiratory 5 Pressure Positive End Expiratory 5 Pressure Peak Inspiratory Airway 24 Pressure Peak Inspiratory Airway 22 Pressure Peak Inspiratory Airway 25 Pressure Peak Inspiratory Airway 24 Pressure Peak Inspiratory Airway 26 Pressure Peak Inspiratory Airway 26 Pressure Peak Inspiratory Airway 25 Pressure Peak Inspiratory Airway 24 Pressure Peak Inspiratory Airway 25 Pressure Peak Inspiratory Airway 25 Pressure Peak Inspiratory Airway 26 Pressure Results - Laboratory Findings CBC and BMP: 08/30/17 04:17 08/30/17 04:17 ABG ABG pH 7.41 pH Units (7.32-7.45) 08/28/17 04:43 ABG pCO2 45 mmHg (35-45) 08/28/17 04:43 ABG pO2 93 mmHg (85-104) 08/28/17 04:43 ABG O2 Saturation 97 % (95-98) 08/28/17 04:43 PT/INR, D-dimer PT 13.1 Seconds (9.4-12.1) H 08/19/17 12:32 D-Dimer 4056 ng/mLFEU (0-500) H 08/19/17 12:32 Abnormal lab findings: Abnormal lab results WBC 12.6 K/mcL (4.3-11.1) H D 08/29/17 04:05 Hgb 9.7 g/dL (11.5-15.4) L 08/29/17 04:05 Hct 31.5 % (35.3-44.9) L 08/29/17 04:05 MCV 82.5 fL (83.0-100.0) L 08/29/17 04:05 MCH 25.4 pg (28.0-33.3) L 08/29/17 04:05 MCHC 30.8 g/dL (31.6-35.5) L 08/29/17 04:05 RDW 23.1 % (11.5-14.5) H 08/29/17 04:05 Monocytes # 1.4 K/mcL (0.0-1.3) H 08/29/17 04:05 Nucleated RBCs/100 WBC 0.2 /100 WBC (0) H 08/29/17 04:05 Platelet Estimate Increased (Normal) H 08/29/17 04:05 Polychromasia 1+ (Not Present) A 08/24/17 06:01 Poikilocytosis 1+ (Not Present) A 08/29/17 04:05 Anisocytosis 1+ (Not Present) A 08/29/17 04:05 Microcytosis Present (Not Present) A 08/25/17 04:19 Macrocytosis Present (Not Present) A 08/25/17 04:19 Target Cells 1+ (Not Present) A 08/25/17 04:19 Ovalocytes 1+ (Not Present) A 08/24/17 06:01 Armando Cells 1+ (Not Present) A 08/29/17 04:05 Acanthocytes (Spur) 1+ (Not Present) A 08/24/17 06:01 Schistocytes 1+ (Not Present) A 08/27/17 09:30 PT 13.1 Seconds (9.4-12.1) H 08/19/17 12:32 D-Dimer 4056 ng/mLFEU (0-500) H 08/19/17 12:32 ABG HCO3 28 mEq/L (21-27) H 08/28/17 04:43 ABG Total CO2 30 mEq/L (20-26) H 08/28/17 04:43 VBG pCO2 53 mmHg (41-51) H 08/19/17 12:50 VBG pO2 63 mmHg (25-50) H 08/19/17 12:50 VBG HCO3 29 mEq/L (21-27) H 08/19/17 12:50 BUN 31 mg/dL (8-23) H 08/29/17 04:05 Est GFR ( Amer) 54 (> 60) L 08/29/17 04:05 Est GFR (Non-Af Amer) 45 (> 60) L 08/29/17 04:05 Glucose 116 mg/dL (70-105) H 08/29/17 04:05 Calcium 8.1 mg/dL (8.6-10.3) L 08/29/17 04:05 Direct Bilirubin 0.4 mg/dL (0.0-0.2) H 08/19/17 12:32 B-Natriuretic Peptide 640 pg/mL (Less than 100) H 08/20/17 00:32 Serum Total Protein 4.7 g/dL (6.4-8.9) L 08/20/17 00:32 Albumin 2.6 g/dL (3.5-5.7) L 08/20/17 00:32 Globulin 2.1 g/dL (2.4-3.5) L 08/20/17 00:32 Urine Bilirubin Small (Negative) H 08/19/17 13:08 Ur Squamous Epith Cells Moderate per lpf (None-Few) H 08/19/17 13:08 - Microbiology Findings Microbiology Findings: Microbiology, Last 48 Hours 08/27/17 08:20 Body Fluid Culture - Preliminary Pericardial Fluid 08/28/17 22:20 Sputum Culture - Preliminary Sputum 08/27/17 08:20 Acid Fast Stain - Final Pericardial Fluid - Clinical Findings Intake & Output: Intake & Output 08/29/17 08/29/17 08/29/17 07:59 15:59 23:59 Intake Total 1000 / 1000 1264.8 / 1264.8 1396.1 / 1396.1 Output Total 130 / 130 170 / 170 205 / 205 Balance 870 / 870 1094.8 / 1094.8 1191.1 / 1191.1 Weight 61.2 kg - VTE Documentation of Mechanical Device: Intermittent pneumatic compression device Consult Discharge Plan - Plan Referrals: Senait Wong CNP [Primary Care Provider] - 08/26/17 2:40 pm <Azam Lofton - Last Filed: 08/30/17 20:59> Date of Encounter: 08/30/17 Objective PUL Vital signs: Last Vital Signs Temp 97.3 F L 08/30/17 12:25 Pulse 109 08/30/17 09:09 Resp 20 08/30/17 11:02 BP 81/69 08/30/17 11:02 Pulse Ox 96 08/30/17 11:02 Ventilator Settings Ventilator Settings: Ventilator Settings, Last 8 Hours Ventilator Mode VC+ Ventilator Mode VC+ Ventilator Mode VC+ Ventilator Mode VC+ Ventilator Mode VC+ Ventilator Mode VC+ Ventilator Mode VC+ Ventilator Mode VC+ Ventilator Tidal Volume 380 Setting Ventilator Tidal Volume 380 Setting Ventilator Tidal Volume 380 Setting Ventilator Tidal Volume 380 Setting Ventilator Tidal Volume 380 Setting Ventilator Tidal Volume 380 Setting Ventilator Tidal Volume 380 Setting Ventilator Tidal Volume 380 Setting Ventilator Respiratory Rate 12 Setting Ventilator Respiratory Rate 12 Setting Ventilator Respiratory Rate 12 Setting Ventilator Respiratory Rate 12 Setting Ventilator Respiratory Rate 12 Setting Ventilator Respiratory Rate 12 Setting Ventilator Respiratory Rate 12 Setting Ventilator Respiratory Rate 12 Setting Actual Respiratory Rate 19 Actual Respiratory Rate 12 Actual Respiratory Rate 13 Actual Respiratory Rate 14 Actual Respiratory Rate 12 Actual Respiratory Rate 15 Actual Respiratory Rate 19 Actual Respiratory Rate 13 Positive End Expiratory 5 Pressure Positive End Expiratory 5 Pressure Positive End Expiratory 5 Pressure Positive End Expiratory 5 Pressure Positive End Expiratory 5 Pressure Positive End Expiratory 5 Pressure Positive End Expiratory 5 Pressure Positive End Expiratory 5 Pressure Peak Inspiratory Airway 24 Pressure Peak Inspiratory Airway 23 Pressure Peak Inspiratory Airway 24 Pressure Peak Inspiratory Airway 24 Pressure Peak Inspiratory Airway 24 Pressure Peak Inspiratory Airway 23 Pressure Peak Inspiratory Airway 24 Pressure Peak Inspiratory Airway 25 Pressure Results - Laboratory Findings CBC and BMP: 08/30/17 04:17 08/30/17 04:17 ABG ABG pH 7.41 pH Units (7.32-7.45) 08/28/17 04:43 ABG pCO2 45 mmHg (35-45) 08/28/17 04:43 ABG pO2 93 mmHg (85-104) 08/28/17 04:43 ABG O2 Saturation 97 % (95-98) 08/28/17 04:43 PT/INR, D-dimer PT 13.1 Seconds (9.4-12.1) H 08/19/17 12:32 D-Dimer 4056 ng/mLFEU (0-500) H 08/19/17 12:32 Abnormal lab findings: Abnormal lab results WBC 11.6 K/mcL (4.3-11.1) H 08/30/17 04:17 RBC 3.71 M/mcL (3.82-4.97) L 08/30/17 04:17 Hgb 9.2 g/dL (11.5-15.4) L 08/30/17 04:17 Hct 30.9 % (35.3-44.9) L 08/30/17 04:17 MCH 24.8 pg (28.0-33.3) L 08/30/17 04:17 MCHC 29.8 g/dL (31.6-35.5) L 08/30/17 04:17 RDW 22.7 % (11.5-14.5) H 08/30/17 04:17 Monocytes # 1.6 K/mcL (0.0-1.3) H 08/30/17 04:17 Nucleated RBCs/100 WBC 0.2 /100 WBC (0) H 08/29/17 04:05 Platelet Estimate Increased (Normal) H 08/29/17 04:05 Polychromasia 1+ (Not Present) A 08/24/17 06:01 Poikilocytosis 1+ (Not Present) A 08/29/17 04:05 Anisocytosis 1+ (Not Present) A 08/29/17 04:05 Microcytosis Present (Not Present) A 08/25/17 04:19 Macrocytosis Present (Not Present) A 08/25/17 04:19 Target Cells 1+ (Not Present) A 08/25/17 04:19 Ovalocytes 1+ (Not Present) A 08/24/17 06:01 [place] Cells 1+ (Not Present) A 08/29/17 04:05 Acanthocytes (Spur) 1+ (Not Present) A 08/24/17 06:01 Schistocytes 1+ (Not Present) A 08/27/17 09:30 PT 13.1 Seconds (9.4-12.1) H 08/19/17 12:32 D-Dimer 4056 ng/mLFEU (0-500) H 08/19/17 12:32 ABG HCO3 28 mEq/L (21-27) H 08/28/17 04:43 ABG Total CO2 30 mEq/L (20-26) H 08/28/17 04:43 VBG pCO2 53 mmHg (41-51) H 08/19/17 12:50 VBG pO2 63 mmHg (25-50) H 08/19/17 12:50 VBG HCO3 29 mEq/L (21-27) H 08/19/17 12:50 BUN 30 mg/dL (8-23) H 08/30/17 04:17 Est GFR ( Amer) 59 (> 60) L 08/30/17 04:17 Est GFR (Non-Af Amer) 49 (> 60) L 08/30/17 04:17 BUN/Creatinine Ratio 27 (6-26) H 08/30/17 04:17 POC Glucose 96 (58-89) H 08/30/17 11:15 Calcium 7.8 mg/dL (8.6-10.3) L 08/30/17 04:17 Direct Bilirubin 0.4 mg/dL (0.0-0.2) H 08/19/17 12:32 B-Natriuretic Peptide 640 pg/mL (Less than 100) H 08/20/17 00:32 Serum Total Protein 4.7 g/dL (6.4-8.9) L 08/20/17 00:32 Albumin 2.6 g/dL (3.5-5.7) L 08/20/17 00:32 Globulin 2.1 g/dL (2.4-3.5) L 08/20/17 00:32 Urine Bilirubin Small (Negative) H 08/19/17 13:08 Ur Squamous Epith Cells Moderate per lpf (None-Few) H 08/19/17 13:08 - Microbiology Findings Microbiology Findings: Microbiology, Last 48 Hours 08/27/17 08:20 Anaerobic Culture - Preliminary Pericardial Fluid At this time, no anaerobic growth is present. The culture will be finalized after 5 days of incubation. 08/28/17 22:20 Sputum Culture - Preliminary Sputum 08/27/17 08:20 Body Fluid Culture - Preliminary Pericardial Fluid 08/27/17 08:20 Acid Fast Stain - Final Pericardial Fluid - Clinical Findings Intake & Output: Intake & Output 08/29/17 08/30/17 08/30/17 23:59 07:59 15:59 Intake Total 1530.1 / 1530.1 215.9 / 215.9 1000 / 1000 Output Total 205 / 205 1270 / 1270 110 / 110 Balance 1325.1 / 1325.1 -1054.1 / -1054.1 890 / 890 Weight 64.2 kg - Attending Attestation I saw and evaluated this patient and my medical decision-making was reviewed with the Resident Physician. I agree with the documented findings, disposition and treatment plan as described except to the extent set forth below. We independently had [id number] contact with the patient I spent 33 minutes of Critical Care time with this patient. It involved decision making of high complexity to assess, manipulate, and support vital organ system failure and/or to prevent further life threatening deterioration of the patient's condition. The time involved in the performance of separately reportable procedures was not counted toward critical care time. Patient seen and examined at bedside Labs, radiology, chart personally reviewed. Management was reviewed during multidisciplinary critical care rounds. RANGE TECHNICIAN:Patient is conscious following commands Pulm:Patient failed SBT cause multifactorial [place] vs fluid overload resctrictive process contributed by pleural effusion now drained to continue broad spectrum antibiotics , cannot tolerate diuresis as she is on tiny bit dose of vasopressor . Cards:Atrial fibrillation with RVR on Amiodarone might contribute hemodynamically stability will change from Levophed to phenylephrine . Will give 500 ml bolus of albumin . FEN-GI: Patient has oesophageal stenosis cannot do Oral access to do nutrition will do PICC line for TPN for now then will consult GI for permanent . Difficulty in placement of PICC line due to SVC obstruction has difficulty in insertion Enteral access if she has trouble getting off from the ventilator Renal:Labs and UOP reviewed .Will hold off diuresis as she had a dye load ID:To continue broad spectrum antibiotics for possible worsening pneumonia Heme/Onc:Labs reviewed Endo: Glucose Monitored Integ/MSK: Skin Care per routine ICU Nursing Protocol to prevent ulcers. Lines: All lines examined without evidence of infection : Dispo: Remains Critically ill . CODE: Full Code
[2017-08-30] MEDS: Insulin LISPRO 300 UNITS/3 ML VIAL SQ SCH ×5 (00:30→23:56)
[2017-08-30] MEDS ORDERED: Levofloxacin 750 MG/150 ML 750 MG/150 ML BAG IVPB SCH (01:00)
[2017-08-30 04:49] LABS: Basophils % 0.2 %; Hematocrit 30.9 % (35.3-44.9); Hemoglobin 9.2 g/dL (11.5-15.4); Immature Granulocytes % 1.4 % (0-4); Lymphocytes # 1.6 K/mcL (0.6-4.6); Lymphocytes % 13.6 %; Mean Corpuscular HGB Conc 29.8 g/dL (31.6-35.5); Mean Corpuscular Hemoglobin 24.8 pg (28.0-33.3); Mean Corpuscular Volume 83.3 fL (83.0-100.0); Mean Platelet Volume 10.3 fL (9.4-12.4); Monocytes # 1.6 K/mcL (0.0-1.3); Monocytes % 13.7 %; Neutrophils # 8.3 K/mcL (1.6-8.9); Platelet Count 142 K/mcL (140-400); Red Blood Count 3.71 M/mcL (3.82-4.97); Red Cell Distribution Width 22.7 % (11.5-14.5); Segmented Neutrophils % 71.1 %
[2017-08-30 04:58] LABS: Calcium 7.8 mg/dL (8.6-10.3); Potassium 3.9 mEq/L (3.5-5.1)
[2017-08-30] MEDS ORDERED: Aminoglycoside Consult 1 EACH MC ONE (08:02)
[2017-08-30] MEDS: Pantoprazole 40 MG VIAL IVP SCH ×2 (08:07→21:09)
[2017-08-30] MEDS: Chlorhexidine Rinse 15 ML MOUTHWASH MM SCH ×2 (08:07→21:10)
[2017-08-30] MEDS: Ringers Solution, Lactated 1,000 ML IVC SCH (08:08)
[2017-08-30] MEDS: Loratadine 10 MG TABLET PO SCH (08:08)
[2017-08-30] MEDS: Aspirin 81 MG TAB.CHEW PO SCH (08:08)
[2017-08-30] MEDS: Famotidine 20 MG TABLET PO SCH (08:09)
[2017-08-30] MEDS: ERLOTINIB HCL 100 MG PO SCH (08:09)
[2017-08-30] MEDS: Gabapentin 300 MG CAPSULE PO SCH ×2 (08:09→21:04)
[2017-08-30] MEDS: predniSONE 20 MG TABLET PO SCH (08:09)
[2017-08-30] MEDS: Folic Acid 1 MG TABLET PO SCH (08:09)
--- NOTE | 2017-08-30 08:20 | Cardiothoracic Progress Note ---
Date of Encounter: 08/30/17 Time of Encounter: 08:18 - Assessment and plan (1) Pericardial effusion Current Visit: Yes Status: Acute The patient remained hemodynamically stable overnight. She remains intubated and sedated. The patient's sedation will be lifted and the patient extubated at the discretion of the probate clerk. The chest tube should remain on suction for several days in order to facilitate complete drainage of the fluid collections and obliteration of the pericardial space. The cytology and pathology of the fluids are pending. The assessment and plan as outlined above was discussed with the patient and/or family members who expressed understanding and agreement. All questions were answered. - Subjective Procedure(s) Performed: POD#3 S/P Subxiphoid pericardial window Interval history: The patient remains intubated, but is awake and appropriate. She remained hemodynamically stable overnight. Vital Signs, Last 4 Hours Temp Pulse Resp BP Pulse Ox 08/30/17 07:36 14 92/52 95 08/30/17 07:25 97.6 F 08/30/17 06:18 24 91/55 98 08/30/17 06:05 118 19 110/63 94 08/30/17 05:25 108 13 101/68 97 08/30/17 05:01 98.5 F 08/30/17 04:20 16 114/64 96 Oxgyen Flow Rate Oxygen Flow Rate (LPM) 4 Clinical Data, last 8 Hours Output, Chest Tube Drainage 50 Amount [Right Anterior Chest # 2] Output, Chest Tube Drainage 10 Amount [Right Anterior Chest # 2] Output, Chest Tube Drainage 90 Amount [Left Upper Anterior Chest #1] Output, Chest Tube Drainage 70 Amount [Left Upper Anterior Chest #1] Weight 08/28/17 08/29/17 08/30/17 23:59 23:59 23:59 Weight 56.6 kg 61.2 kg 64.2 kg - Physical Examination General: Conversant, No Apparent Distress Neck: No JVD, Normal carotid pulses Cardiac: Normal S1 and S2, No Murmur, Other (Irregular rate and rhythm (atrial fibrillation)) Incision: No signs of infection, Dry/intact dressing Chest tubes: Minimal drainage, Other (No air leak in either chest tube) Lungs: Normal Breath Sounds (Left lung oshea), Decreased breath sounds (Right lung oshea) Neuro: Alert and responsive, No focal deficits noted Vascular: Normal capillary refill Extremities: No Clubbing, No Cyanosis, No Edema - Labs 08/30/17 04:17 08/30/17 04:17 Lab Results, Last 24 hours 08/30/17 08/30/17 04:17 04:17 WBC 11.6 H Hgb 9.2 L Hct 30.9 L Plt Count 142 Sodium 139 Potassium 3.9 Chloride 107 Carbon Dioxide 26 BUN 30 H Creatinine 1.11 Glucose 91 Calcium 7.8 L - Imaging Chest Xray: image reviewed (No pneumothorax. Minimal atelectasis/inflitrates.) - VTE Documentation of Mechanical Device: Intermittent pneumatic compression device Consult Discharge Plan - Plan Referrals: Senait Wong, V BELT SKIVER [Primary Care Provider] - 08/26/17 2:40 pm
[2017-08-30] MEDS ORDERED: D10% in Water 500 ML IVC PRN (11:40)
[2017-08-30] MEDS: Amiodarone Premix 360 MG/200 ML BAG IVC SCH ×2 (12:30→23:50)
[2017-08-30] MEDS: Phenylephrine 10 MG in D5% in Water 250 ML IVC SCH (13:05)
--- NOTE | 2017-08-30 14:29 | IR Procedure Note ---
Date of procedure: 08/30/17 Consent Obtained: Verbal consent, Written consent Timeout: Correct patient and procedure verified, Correct site verified, Time out performed, Skin prep completed Local anesthetic: Lidocaine 1% Indications: PICC unable to be advanced; need for TPN Procedure Performed: PICC insertion Was there an care team assistant present: No Site/Technique: L UE Results/Findings: L brachiocephalic vein central occclusion Estimated blood loss (cc): 1 Complications: None; Tolerated procedure well Specimen: none
[2017-08-30] MEDS ORDERED: Clinimix E 5%-15% SOLUTION 2,000 ML with MVI, adult with vitamin K 10 ML IVC SCH (17:00)
[2017-08-30] MEDS: FentaNYL (PF) 1,000 MCG in 0.9 % Sodium Chloride 80 ML IVC SCH (18:01)
[2017-08-30] MEDS: Norepinephrine 4 MG in D5% in Water 250 ML IVC SCH (19:05)
[2017-08-30 19:58] LABS: Magnesium 1.5 mg/dL (1.6-2.6); Phosphorous 3.3 mg/dL (2.7-4.5)
[2017-08-31 03:21] LABS: Hemoglobin 8.4 g/dL (11.5-15.4)
[2017-08-31 03:23] LABS: Hematocrit 27.9 % (35.3-44.9); Immature Platelets 6.8 % (1.1-6.1); Mean Corpuscular HGB Conc 30.1 g/dL (31.6-35.5); Mean Corpuscular Hemoglobin 25.7 pg (28.0-33.3); Mean Corpuscular Volume 85.3 fL (83.0-100.0); Platelet Count 100 K/mcL (140-400); Red Blood Count 3.27 M/mcL (3.82-4.97); Red Cell Distribution Width 22.3 % (11.5-14.5)
[2017-08-31] MEDS: Phenylephrine 10 MG in D5% in Water 250 ML IVC SCH ×5 (04:05→22:30)
[2017-08-31 04:19] LABS: BUN/Creatinine Ratio 28 (6-26); Blood Urea Nitrogen 28 mg/dL (8-23); Calcium 7.5 mg/dL (8.6-10.3); Carbon Dioxide 23 mEq/L (23-29); Chloride 107 mEq/L (98-107); Glucose 147 mg/dL (70-105); Magnesium 1.5 mg/dL (1.6-2.6); Osmolality,Calculated 292 (280-300); Phosphorous 3.3 mg/dL (2.7-4.5); Potassium 3.6 mEq/L (3.5-5.1); Sodium 137 mEq/L (136-145); eGFR For African Americans > 60 (> 60); eGFR For Non-African Americans 55 (> 60)
[2017-08-31] MEDS: Insulin LISPRO 300 UNITS/3 ML VIAL SQ SCH ×3 (06:04→18:15)
[2017-08-31] MEDS: Aspirin 81 MG TAB.CHEW PO SCH (08:02)
[2017-08-31] MEDS: Loratadine 10 MG TABLET PO SCH (08:02)
[2017-08-31] MEDS: Gabapentin 300 MG CAPSULE PO SCH ×2 (08:03→21:57)
[2017-08-31] MEDS: Folic Acid 1 MG TABLET PO SCH (08:03)
[2017-08-31] MEDS: ERLOTINIB HCL 100 MG PO SCH (08:03)
[2017-08-31] MEDS: Chlorhexidine Rinse 15 ML MOUTHWASH MM SCH ×2 (08:14→21:58)
[2017-08-31] MEDS: Pantoprazole 40 MG VIAL IVP SCH ×2 (08:15→21:58)
--- NOTE | 2017-08-31 09:24 | Cardiothoracic Progress Note ---
Date of Encounter: 08/31/17 Time of Encounter: 09:22 - Assessment and plan (1) Pericardial effusion Current Visit: Yes Status: Acute The patient remained hemodynamically stable overnight. She remains intubated and sedated. The patient's sedation will be lifted and the patient extubated at the discretion of the adjunct communications faculty member. The chest tube should remain on suction for several days in order to facilitate complete drainage of the fluid collections and obliteration of the pericardial space. The cytology and pathology of the fluids showed reactive cells only. No evidence of malignancy. The assessment and plan as outlined above was discussed with the patient and/or family members who expressed understanding and agreement. All questions were answered. - Subjective Procedure(s) Performed: POD#4 S/P Subxiphoid pericardial window Interval history: The patient remains intubated, but is awake and appropriate. She remained hemodynamically stable overnight. Vital Signs, Last 4 Hours Temp Pulse Resp BP Pulse Ox 08/31/17 07:34 14 109/55 99 08/31/17 07:30 73 16 102/51 99 08/31/17 07:10 98.1 F 08/31/17 06:00 73 15 108/55 97 08/31/17 05:41 13 93/48 100 Oxgyen Flow Rate Oxygen Flow Rate (LPM) 4 Clinical Data, last 8 Hours Output, Chest Tube Drainage 10 Amount [Right Anterior Chest # 2] Output, Chest Tube Drainage 10 Amount [Right Anterior Chest # 2] Output, Chest Tube Drainage 60 Amount [Left Upper Anterior Chest #1] Output, Chest Tube Drainage 30 Amount [Left Upper Anterior Chest #1] Weight 08/29/17 08/30/17 08/31/17 23:59 23:59 23:59 Weight 61.2 kg 64.2 kg 67.22 kg - Physical Examination General: Conversant, No Apparent Distress, Other (Remains intubated) Neck: No JVD, Normal carotid pulses Cardiac: Reg Rate and Rhythm, Normal S1 and S2, No Murmur Incision: No signs of infection, Dry/intact dressing Chest tubes: Minimal drainage, Other (No air leak) Lungs: Normal Breath Sounds (Left lung oshea), Decreased breath sounds (Right lung oshea), No Wheeze, Rales, Rhonchi Neuro: Alert and responsive, No focal deficits noted Extremities: No Clubbing, No Cyanosis, No Edema - Labs 08/31/17 03:09 08/31/17 03:09 Lab Results, Last 24 hours 08/30/17 08/31/17 08/31/17 19:27 03:09 03:09 WBC 11.0 Hgb 8.4 L Hct 27.9 L Plt Count 100 L Sodium 137 Potassium 3.6 Chloride 107 Carbon Dioxide 23 BUN 28 H Creatinine 1.00 Glucose 147 H Calcium 7.5 L Magnesium 1.5 L 1.5 L - Imaging Chest Xray: image reviewed (No left pneumothorax. Right hemithorax opacification, unchanged.) - VTE Documentation of Mechanical Device: Intermittent pneumatic compression device Consult Discharge Plan - Plan Referrals: Senait Wong, ARACELI [Primary Care Provider] - 08/26/17 2:40 pm
--- NOTE | 2017-08-31 11:04 | Pulmonology Progress Note ---
<Milton Baltazar - Last Filed: 08/31/17 15:03> Date of Encounter: 08/31/17 Time of Encounter: 09:15 Assessment and Plan (1) Pericardial effusion Current Visit: Yes Status: Acute S/p subxiphoid pericardial window and left chest tube intertion 08/27/[address] surgery. (2) Esophageal abnormality Current Visit: Yes Status: Acute Currently receiving TPN nutrition through PICC line placed by IR. Inability to pass OG tube to stomach, GI consulted for possible EGD with interest in obtaining enteral access for nutrition via OG. (3) Acute and chronic respiratory failure Current Visit: Yes Status: Acute Intubated, sedated on fentanyl, on a/c vent Qualifiers: Respiratory failure complication: hypoxia Qualified Code(s): J96.21 - Acute and chronic respiratory failure with hypoxia (4) Pleural effusion on left Current Visit: Yes Status: Acute S/p chest tube L, 08/27/17. (5) Atrial fibrillation with RVR Current Visit: Yes Status: Chronic Amiodarone running at 16mg/hr. Currently HR in low 100s. (6) HCAP (healthcare-associated pneumonia) Current Visit: Yes Status: Acute Currently on Vanc/zosyn. (7) Non-small cell lung cancer Current Visit: Yes Status: Chronic Known hx non-small cell lung cancer, follows Dr. Valadez. S/p R lower lobe lobectomy her eCW chart review, date unknown. Qualifiers: Laterality: left Qualified Code(s): C34.92 - Malignant neoplasm of unspecified part of left bronchus or lung Subjective Principal diagnosis: Pericarial Effusion+Recurrent L pleural effusion Objective PUL Vital signs: Last Vital Signs Temp 98.1 F 08/31/17 07:10 Pulse 69 08/31/17 10:00 Resp 19 08/31/17 10:00 BP 102/52 08/31/17 10:00 Pulse Ox 100 08/31/17 10:00 Ventilator Settings Ventilator Settings: Ventilator Settings, Last 8 Hours Ventilator Mode VC+ Ventilator Mode VC+ Ventilator Mode VC+ Ventilator Mode VC+ Ventilator Mode VC+ Ventilator Mode VC+ Ventilator Mode VC+ Ventilator Mode VC+ Ventilator Mode VC+ Ventilator Mode VC+ Ventilator Mode VC+ Ventilator Tidal Volume 380 Setting Ventilator Tidal Volume 380 Setting Ventilator Tidal Volume 380 Setting Ventilator Tidal Volume 380 Setting Ventilator Tidal Volume 380 Setting Ventilator Tidal Volume 380 Setting Ventilator Tidal Volume 380 Setting Ventilator Tidal Volume 380 Setting Ventilator Tidal Volume 380 Setting Ventilator Tidal Volume 380 Setting Ventilator Tidal Volume 380 Setting Ventilator Respiratory Rate 12 Setting Ventilator Respiratory Rate 12 Setting Ventilator Respiratory Rate 12 Setting Ventilator Respiratory Rate 12 Setting Ventilator Respiratory Rate 12 Setting Ventilator Respiratory Rate 12 Setting Ventilator Respiratory Rate 12 Setting Ventilator Respiratory Rate 12 Setting Ventilator Respiratory Rate 12 Setting Ventilator Respiratory Rate 12 Setting Ventilator Respiratory Rate 12 Setting Actual Respiratory Rate 19 Actual Respiratory Rate 20 Actual Respiratory Rate 19 Actual Respiratory Rate 17 Actual Respiratory Rate 16 Actual Respiratory Rate 16 Actual Respiratory Rate 15 Actual Respiratory Rate 13 Actual Respiratory Rate 14 Actual Respiratory Rate 13 Actual Respiratory Rate 16 Positive End Expiratory 5 Pressure Positive End Expiratory 5 Pressure Positive End Expiratory 5 Pressure Positive End Expiratory 5 Pressure Positive End Expiratory 5 Pressure Positive End Expiratory 5 Pressure Positive End Expiratory 5 Pressure Positive End Expiratory 5 Pressure Positive End Expiratory 5 Pressure Positive End Expiratory 5 Pressure Positive End Expiratory 5 Pressure Peak Inspiratory Airway 27 Pressure Peak Inspiratory Airway 25 Pressure Peak Inspiratory Airway 27 Pressure Peak Inspiratory Airway 27 Pressure Peak Inspiratory Airway 26 Pressure Peak Inspiratory Airway 25 Pressure Peak Inspiratory Airway 28 Pressure Peak Inspiratory Airway 27 Pressure Peak Inspiratory Airway 25 Pressure Peak Inspiratory Airway 28 Pressure Peak Inspiratory Airway 26 Pressure Results - Laboratory Findings CBC and BMP: 08/31/17 03:09 08/31/17 03:09 ABG ABG pH 7.41 pH Units (7.32-7.45) 08/28/17 04:43 ABG pCO2 45 mmHg (35-45) 08/28/17 04:43 ABG pO2 93 mmHg (85-104) 08/28/17 04:43 ABG O2 Saturation 97 % (95-98) 08/28/17 04:43 PT/INR, D-dimer PT 13.1 Seconds (9.4-12.1) H 08/19/17 12:32 D-Dimer 4056 ng/mLFEU (0-500) H 08/19/17 12:32 Abnormal lab findings: Abnormal lab results RBC 3.27 M/mcL (3.82-4.97) L 08/31/17 03:09 Hgb 8.4 g/dL (11.5-15.4) L 08/31/17 03:09 Hct 27.9 % (35.3-44.9) L 08/31/17 03:09 MCH 25.7 pg (28.0-33.3) L 08/31/17 03:09 MCHC 30.1 g/dL (31.6-35.5) L 08/31/17 03:09 RDW 22.3 % (11.5-14.5) H 08/31/17 03:09 Plt Count 100 K/mcL (140-400) L 08/31/17 03:09 Monocytes # 1.6 K/mcL (0.0-1.3) H 08/30/17 04:17 Nucleated RBCs/100 WBC 0.2 /100 WBC (0) H 08/29/17 04:05 Platelet Estimate Increased (Normal) H 08/29/17 04:05 Immature Plt Fraction 6.8 % (1.1-6.1) H 08/31/17 03:09 Polychromasia 1+ (Not Present) A 08/24/17 06:01 Poikilocytosis 1+ (Not Present) A 08/29/17 04:05 Anisocytosis 1+ (Not Present) A 08/29/17 04:05 Microcytosis Present (Not Present) A 08/25/17 04:19 Macrocytosis Present (Not Present) A 08/25/17 04:19 Target Cells 1+ (Not Present) A 08/25/17 04:19 Ovalocytes 1+ (Not Present) A 08/24/17 06:01 Armando Cells 1+ (Not Present) A 08/29/17 04:05 Acanthocytes (Spur) 1+ (Not Present) A 08/24/17 06:01 Schistocytes 1+ (Not Present) A 08/27/17 09:30 PT 13.1 Seconds (9.4-12.1) H 08/19/17 12:32 D-Dimer 4056 ng/mLFEU (0-500) H 08/19/17 12:32 ABG HCO3 28 mEq/L (21-27) H 08/28/17 04:43 ABG Total CO2 30 mEq/L (20-26) H 08/28/17 04:43 VBG pCO2 53 mmHg (41-51) H 08/19/17 12:50 VBG pO2 63 mmHg (25-50) H 08/19/17 12:50 VBG HCO3 29 mEq/L (21-27) H 08/19/17 12:50 BUN 28 mg/dL (8-23) H 08/31/17 03:09 Est GFR (Non-Af Amer) 55 (> 60) L 08/31/17 03:09 BUN/Creatinine Ratio 28 (6-26) H 08/31/17 03:09 Glucose 147 mg/dL (70-105) H 08/31/17 03:09 POC Glucose 162 (58-89) H 08/31/17 06:03 Calcium 7.5 mg/dL (8.6-10.3) L 08/31/17 03:09 Magnesium 1.5 mg/dL (1.6-2.6) L 08/31/17 03:09 Direct Bilirubin 0.4 mg/dL (0.0-0.2) H 08/19/17 12:32 B-Natriuretic Peptide 640 pg/mL (Less than 100) H 08/20/17 00:32 Serum Total Protein 4.7 g/dL (6.4-8.9) L 08/20/17 00:32 Albumin 2.6 g/dL (3.5-5.7) L 08/20/17 00:32 Globulin 2.1 g/dL (2.4-3.5) L 08/20/17 00:32 Urine Bilirubin Small (Negative) H 08/19/17 13:08 Ur Squamous Epith Cells Moderate per lpf (None-Few) H 08/19/17 13:08 - Microbiology Findings Microbiology Findings: Microbiology, Last 48 Hours 08/28/17 22:20 Sputum Culture - Final Sputum 08/27/17 08:20 Body Fluid Culture - Final Pericardial Fluid 08/27/17 08:20 Anaerobic Culture - Preliminary Pericardial Fluid At this time, no anaerobic growth is present. The culture will be finalized after 5 days of incubation. - Clinical Findings Intake & Output: Intake & Output 08/30/17 08/31/17 08/31/17 23:59 07:59 15:59 Intake Total 883.6 / 883.6 710.1 / 710.1 1249.9 / 1249.9 Output Total 490 / 490 235 / 235 Balance 393.6 / 393.6 475.1 / 475.1 1249.9 / 1249.9 Weight 67.22 kg - VTE Documentation of Mechanical Device: Intermittent pneumatic compression device Consult Discharge Plan - Plan Referrals: Senait Wong, FIELD TRAINING MANAGER [Primary Care Provider] - 08/26/17 2:40 pm <Azam Lofton Armida - Last Filed: 08/31/17 23:03> Date of Encounter: 08/31/17 Objective PUL Vital signs: Last Vital Signs Temp 99.3 F 08/31/17 17:00 Pulse 105 08/31/17 18:00 Resp 12 08/31/17 18:00 BP 92/60 08/31/17 18:00 Pulse Ox 94 08/31/17 18:00 Ventilator Settings Ventilator Settings: Ventilator Settings, Last 8 Hours Ventilator Mode VC+ Ventilator Mode VC+ Ventilator Mode VC+ Ventilator Mode VC+ Ventilator Mode VC+ Ventilator Mode VC+ Ventilator Mode VC+ Ventilator Mode VC+ Ventilator Mode VC+ Ventilator Mode VC+ Ventilator Mode VC+ Ventilator Mode VC+ Ventilator Tidal Volume 380 Setting Ventilator Tidal Volume 380 Setting Ventilator Tidal Volume 380 Setting Ventilator Tidal Volume 380 Setting Ventilator Tidal Volume 380 Setting Ventilator Tidal Volume 380 Setting Ventilator Tidal Volume 380 Setting Ventilator Tidal Volume 380 Setting Ventilator Tidal Volume 380 Setting Ventilator Tidal Volume 380 Setting Ventilator Tidal Volume 380 Setting Ventilator Tidal Volume 380 Setting Ventilator Respiratory Rate 12 Setting Ventilator Respiratory Rate 12 Setting Ventilator Respiratory Rate 12 Setting Ventilator Respiratory Rate 12 Setting Ventilator Respiratory Rate 12 Setting Ventilator Respiratory Rate 12 Setting Ventilator Respiratory Rate 12 Setting Ventilator Respiratory Rate 12 Setting Ventilator Respiratory Rate 12 Setting Ventilator Respiratory Rate 12 Setting Ventilator Respiratory Rate 12 Setting Ventilator Respiratory Rate 12 Setting Actual Respiratory Rate 12 Actual Respiratory Rate 14 Actual Respiratory Rate 19 Actual Respiratory Rate 18 Actual Respiratory Rate 16 Actual Respiratory Rate 14 Actual Respiratory Rate 17 Actual Respiratory Rate 13 Actual Respiratory Rate 15 Actual Respiratory Rate 15 Actual Respiratory Rate 13 Actual Respiratory Rate 16 Positive End Expiratory 5 Pressure Positive End Expiratory 5 Pressure Positive End Expiratory 5 Pressure Positive End Expiratory 5 Pressure Positive End Expiratory 5 Pressure Positive End Expiratory 5 Pressure Positive End Expiratory 5 Pressure Positive End Expiratory 5 Pressure Positive End Expiratory 5 Pressure Positive End Expiratory 5 Pressure Positive End Expiratory 5 Pressure Positive End Expiratory 5 Pressure Peak Inspiratory Airway 27 Pressure Peak Inspiratory Airway 27 Pressure Peak Inspiratory Airway 26 Pressure Peak Inspiratory Airway 25 Pressure Peak Inspiratory Airway 25 Pressure Peak Inspiratory Airway 25 Pressure Peak Inspiratory Airway 27 Pressure Peak Inspiratory Airway 24 Pressure Peak Inspiratory Airway 25 Pressure Peak Inspiratory Airway 26 Pressure Peak Inspiratory Airway 24 Pressure Peak Inspiratory Airway 26 Pressure Results - Laboratory Findings CBC and BMP: 08/31/17 03:09 08/31/17 03:09 ABG ABG pH 7.41 pH Units (7.32-7.45) 08/28/17 04:43 ABG pCO2 45 mmHg (35-45) 08/28/17 04:43 ABG pO2 93 mmHg (85-104) 08/28/17 04:43 ABG O2 Saturation 97 % (95-98) 08/28/17 04:43 PT/INR, D-dimer PT 13.1 Seconds (9.4-12.1) H 08/19/17 12:32 D-Dimer 4056 ng/mLFEU (0-500) H 08/19/17 12:32 Abnormal lab findings: Abnormal lab results RBC 3.27 M/mcL (3.82-4.97) L 08/31/17 03:09 Hgb 8.4 g/dL (11.5-15.4) L 08/31/17 03:09 Hct 27.9 % (35.3-44.9) L 08/31/17 03:09 MCH 25.7 pg (28.0-33.3) L 08/31/17 03:09 MCHC 30.1 g/dL (31.6-35.5) L 08/31/17 03:09 RDW 22.3 % (11.5-14.5) H 08/31/17 03:09 Plt Count 100 K/mcL (140-400) L 08/31/17 03:09 Monocytes # 1.6 K/mcL (0.0-1.3) H 08/30/17 04:17 Nucleated RBCs/100 WBC 0.2 /100 WBC (0) H 08/29/17 04:05 Platelet Estimate Increased (Normal) H 08/29/17 04:05 Immature Plt Fraction 6.8 % (1.1-6.1) H 08/31/17 03:09 Polychromasia 1+ (Not Present) A 08/24/17 06:01 Poikilocytosis 1+ (Not Present) A 08/29/17 04:05 Anisocytosis 1+ (Not Present) A 08/29/17 04:05 Microcytosis Present (Not Present) A 08/25/17 04:19 Macrocytosis Present (Not Present) A 08/25/17 04:19 Target Cells 1+ (Not Present) A 08/25/17 04:19 Ovalocytes 1+ (Not Present) A 08/24/17 06:01 Armando Cells 1+ (Not Present) A 08/29/17 04:05 Acanthocytes (Spur) 1+ (Not Present) A 08/24/17 06:01 Schistocytes 1+ (Not Present) A 08/27/17 09:30 PT 13.1 Seconds (9.4-12.1) H 08/19/17 12:32 D-Dimer 4056 ng/mLFEU (0-500) H 08/19/17 12:32 ABG HCO3 28 mEq/L (21-27) H 08/28/17 04:43 ABG Total CO2 30 mEq/L (20-26) H 08/28/17 04:43 VBG pCO2 53 mmHg (41-51) H 08/19/17 12:50 VBG pO2 63 mmHg (25-50) H 08/19/17 12:50 VBG HCO3 29 mEq/L (21-27) H 08/19/17 12:50 BUN 28 mg/dL (8-23) H 08/31/17 03:09 Est GFR (Non-Af Amer) 55 (> 60) L 08/31/17 03:09 BUN/Creatinine Ratio 28 (6-26) H 08/31/17 03:09 Glucose 147 mg/dL (70-105) H 08/31/17 03:09 Calcium 7.5 mg/dL (8.6-10.3) L 08/31/17 03:09 Magnesium 1.5 mg/dL (1.6-2.6) L 08/31/17 03:09 Direct Bilirubin 0.4 mg/dL (0.0-0.2) H 08/19/17 12:32 B-Natriuretic Peptide 640 pg/mL (Less than 100) H 08/20/17 00:32 Serum Total Protein 4.7 g/dL (6.4-8.9) L 08/20/17 00:32 Albumin 2.6 g/dL (3.5-5.7) L 08/20/17 00:32 Globulin 2.1 g/dL (2.4-3.5) L 08/20/17 00:32 Urine Bilirubin Small (Negative) H 08/19/17 13:08 Ur Squamous Epith Cells Moderate per lpf (None-Few) H 08/19/17 13:08 - Microbiology Findings Microbiology Findings: Microbiology, Last 48 Hours 08/28/17 22:20 Sputum Culture - Final Sputum 08/27/17 08:20 Body Fluid Culture - Final Pericardial Fluid 08/27/17 08:20 Anaerobic Culture - Preliminary Pericardial Fluid At this time, no anaerobic growth is present. The culture will be finalized after 5 days of incubation. - Clinical Findings Intake & Output: Intake & Output 08/31/17 08/31/17 08/31/17 07:59 15:59 23:59 Intake Total 710.1 / 710.1 1989.9 / 1989.9 251 / 251 Output Total 235 / 235 360 / 360 100 / 100 Balance 475.1 / 475.1 1630.9 / 1630.9 151 / 151 Weight 67.22 kg - Attending Attestation I saw and evaluated this patient and my medical decision-making was reviewed with the Resident Physician. I agree with the documented findings, disposition and treatment plan as described except to the extent set forth below. We independently had [id number] contact with the patient Patient seen and examined at bedside Labs, radiology, chart personally reviewed. Management was reviewed during multidisciplinary critical care rounds. FLOAT BUILDER:Patient is conscious following commands Pulm:Patient failed SBT cause multifactorial [place] vs fluid overload resctrictive process contributed by pleural effusion now drained to continue broad spectrum antibiotics , cannot tolerate diuresis as she is on tiny bit dose of vasopressor . Cards:Atrial fibrillation with RVR on Amiodarone might contribute hemodynamically stability changed from Levophed to phenylephrine . Will give daily bolus of albumin . FEN-GI: Patient has oesophageal stenosis cannot do Oral access to do nutrition will do PICC line for TPN for now then will consult GI for permanent . Difficulty in placement of PICC line due to SVC and brachiocephalic obstruction has difficulty in insertion because of difficult central vein access consulted GI since patient has severe lower esophageal stricture will attempt tomorrow to do a PEG tube explained about the benefits of procedure how important is nutrition in liberation from the ventilator Renal:Labs and UOP reviewed . ID:To continue broad spectrum antibiotics for possible worsening pneumonia will continue to descalate Heme/Onc:Labs reviewed Endo: Glucose Monitored Integ/MSK: Skin Care per routine ICU Nursing Protocol to prevent ulcers. Lines: All lines examined without evidence of infection : Dispo: Remains Critically ill . CODE: Full Code
[2017-08-31] MEDS: Amiodarone Premix 360 MG/200 ML BAG IVC SCH (12:01)
[2017-08-31] MEDS: Norepinephrine 4 MG in D5% in Water 250 ML IVC SCH (16:05)
[2017-08-31] MEDS: FentaNYL (PF) 1,000 MCG in 0.9 % Sodium Chloride 80 ML IVC SCH ×2 (18:05→18:11)
[2017-09-01] MEDS: Insulin LISPRO 300 UNITS/3 ML VIAL SQ SCH ×4 (00:09→18:10)
--- NOTE | 2017-09-01 01:58 | Electrocardiograph Report ---
[address] [address] Test Date: 2017-08-25 Pat Name: Clara Wong Department: 111 Room: 2N03 Gender: F Fingerprint Classifier: [facility] : 1945 Requested By: Jermaine Barnes Order Number: [id number] Reading MD: Soila Mar Measurements Intervals [place] Rate: 115 P: SC: 0 QRS: 4 QRSD: 80 T: 29 QT: 315 QTc: 383 Interpretive Statements ATRIAL FIBRILLATION WITH RAPID VENTRICULAR RESPONSE LOW QRS VOLTAGE Electronically Signed On 09-01-2017 1:56:25 EST by Soila Mar
[2017-09-01] MEDS: Phenylephrine 10 MG in D5% in Water 250 ML IVC SCH ×3 (02:30→07:27)
[2017-09-01 04:11] LABS: Hematocrit 28.7 % (35.3-44.9); Hemoglobin 8.9 g/dL (11.5-15.4); Immature Platelets 8.4 % (1.1-6.1); Mean Corpuscular Hemoglobin 24.9 pg (28.0-33.3); Mean Corpuscular Volume 80.4 fL (83.0-100.0); Red Blood Count 3.57 M/mcL (3.82-4.97); Red Cell Distribution Width 21.9 % (11.5-14.5)
[2017-09-01 04:13] LABS: Platelet Count 87 K/mcL (140-400)
[2017-09-01 04:19] LABS: BUN/Creatinine Ratio 32 (6-26); Blood Urea Nitrogen 27 mg/dL (8-23); Calcium 7.4 mg/dL (8.6-10.3); Carbon Dioxide 22 mEq/L (23-29); Chloride 105 mEq/L (98-107); Glucose 97 mg/dL (70-105); Osmolality,Calculated 281 (280-300); Potassium 3.1 mEq/L (3.5-5.1); Sodium 133 mEq/L (136-145); eGFR For African Americans > 60 (> 60); eGFR For Non-African Americans > 60 (> 60)
[2017-09-01] MEDS: Folic Acid 1 MG TABLET PO SCH (07:12)
[2017-09-01] MEDS: Loratadine 10 MG TABLET PO SCH (07:12)
[2017-09-01] MEDS: Gabapentin 300 MG CAPSULE PO SCH ×2 (07:12→19:42)
[2017-09-01] MEDS: ERLOTINIB HCL 100 MG PO SCH (07:12)
--- NOTE | 2017-09-01 07:25 | Cardiothoracic Progress Note ---
Date of Encounter: 09/01/17 Time of Encounter: 07:23 - Assessment and plan (1) Pericardial effusion Current Visit: Yes Status: Acute The patient remained hemodynamically stable overnight. She remains intubated and is unable to tolerate CPAP trials. Currently she is awake, alert, and appropriate. The chest tube should remain on suction for several days in order to facilitate complete drainage of the fluid collections and obliteration of the pericardial space. The cytology and pathology of the fluids showed reactive cells only. No evidence of malignancy. The assessment and plan as outlined above was discussed with the patient and/or family members who expressed understanding and agreement. All questions were answered. - Subjective Procedure(s) Performed: POD#5 S/P Subxiphoid pericardial window Interval history: The patient remains intubated, but is awake and appropriate. She remained hemodynamically stable overnight. Vital Signs, Last 4 Hours Temp Pulse Resp BP Pulse Ox 09/01/17 07:19 18 88/50 100 09/01/17 06:00 87 18 97/54 100 09/01/17 05:22 21 81/49 100 09/01/17 05:00 94 18 99/62 100 09/01/17 04:10 97.5 F L 09/01/17 04:00 85 20 136/71 100 09/01/17 03:31 14 88/54 100 Oxgyen Flow Rate Oxygen Flow Rate (LPM) 4 Clinical Data, last 8 Hours Output, Chest Tube Drainage 20 Amount [Right Anterior Chest # 2] Output, Chest Tube Drainage 0 Amount [Right Anterior Chest # 2] Output, Chest Tube Drainage 70 Amount [Left Upper Anterior Chest #1] Output, Chest Tube Drainage 60 Amount [Left Upper Anterior Chest #1] Weight 08/30/17 08/31/17 09/01/17 23:59 23:59 23:59 Weight 64.2 kg 67.22 kg 68.4 kg - Physical Examination General: Conversant, No Apparent Distress Neck: No JVD, Normal carotid pulses Cardiac: Normal S1 and S2, No Murmur, Other (Irregular rate and rhythm (atrial fibrillation)) Incision: No signs of infection, Dry/intact dressing Chest tubes: Minimal drainage, Other (No air leak) Lungs: Normal Breath Sounds (Left lung oshea), Decreased breath sounds (Right lung oshea) Neuro: Alert and responsive, No focal deficits noted Vascular: Normal capillary refill Musculoskeletal: No Chest Wall Tenderness Extremities: No Clubbing, No Cyanosis, No Edema - Labs 09/01/17 03:53 09/01/17 03:53 Lab Results, Last 24 hours 09/01/17 09/01/17 03:53 03:53 WBC 13.0 H Hgb 8.9 L Hct 28.7 L Plt Count 87 L Sodium 133 L Potassium 3.1 L Chloride 105 Carbon Dioxide 22 L BUN 27 H Creatinine 0.84 Glucose 97 Calcium 7.4 L - VTE Documentation of Mechanical Device: Intermittent pneumatic compression device Consult Discharge Plan - Plan Referrals: Senait Wong, ARACELI [Primary Care Provider] - 08/26/17 2:40 pm
[2017-09-01] MEDS: Chlorhexidine Rinse 15 ML MOUTHWASH MM SCH ×2 (08:04→21:13)
[2017-09-01] MEDS: Pantoprazole 40 MG VIAL IVP SCH ×2 (08:04→21:13)
[2017-09-01] MEDS: Phenylephrine 50 MG in D5% in Water 250 ML IVC SCH ×3 (08:49→22:40)
[2017-09-01] MEDS: FentaNYL (PF) 1,000 MCG in 0.9 % Sodium Chloride 80 ML IVC SCH ×2 (09:12→22:30)
--- NOTE | 2017-09-01 11:41 | Procedure Note ---
<Madina Ramirez - Last Filed: 09/01/17 17:34> Date of procedure: 09/01/17 Pre-op diagnosis: Acute and chronic respiratory failure Post-op diagnosis: same Procedure: Central Venous Catheter (CVC, Central Line) Placement Date: 09/01/2017 Time: 9:22am Indication: Hemodynamic monitoring/Intravenous access Resident: Madina Ramirez Attending: Dr. Lofton A time-out was completed verifying correct patient, procedure, site, positioning , and special equipment if applicable. The patient was placed in a dependent position appropriate for central line placement based on the vein to be cannulated. The patients right groin was prepped and draped in sterile fashion. 1% Lidocaine was used to anesthetize the surrounding skin area. A triple lumen 9 -[place] Cordis catheter was introduced into the the common femoral vein using the Seldinger technique and under ultrasound guidance. The catheter was threaded smoothly over the guide wire and appropriate blood return was obtained. Each lumen of the catheter was evacuated of air and flushed with sterile saline. The catheter was then sutured in place to the skin and a sterile dressing applied. Perfusion to the extremity distal to the point of catheter insertion was checked and found to be adequate. Attending: Dr. Lofton was present for the entire procedure. Estimated Blood Loss: 5cc The patient tolerated the procedure well and there were no complications. Anesthesia: local Was there an respiratory care assistant present: Yes Hotel Maintenance Engineer: Santos Isaac Estimated blood loss (cc): 5 Specimen: none Pathology: none sent Condition: stable Disposition: ICU <Azam Lofton - Last Filed: 09/01/17 23:33> Procedure: I was present for the entire procedures assisting in critical portions of the procedure
--- NOTE | 2017-09-01 11:45 | Pulmonology Progress Note ---
<Milton Baltazar - Last Filed: 09/01/17 17:27> Date of Encounter: 09/01/17 Time of Encounter: 09:15 Assessment and Plan (1) Acute and chronic respiratory failure Current Visit: Yes Status: Acute Intubated, sedated on fentanyl, on a/c vent. Requiring increased pressor support today. PEG tube postponed. Qualifiers: Respiratory failure complication: hypoxia Qualified Code(s): J96.21 - Acute and chronic respiratory failure with hypoxia (2) Pericardial effusion Current Visit: Yes Status: Acute S/p subxiphoid pericardial window and left chest tube intertion 08/27/[address] surgery. (3) Esophageal abnormality Current Visit: Yes Status: Acute Currently receiving TPN nutrition through PICC line placed by IR. Inability to pass OG tube to stomach, GI consulted for possible EGD with interest in obtaining enteral access for nutrition via OG. (4) Pleural effusion on left Current Visit: Yes Status: Acute S/p chest tube L, 08/27/17. (5) Atrial fibrillation with RVR Current Visit: Yes Status: Chronic Amiodarone running at 16mg/hr. Currently converted, but BPs down. (6) HCAP (healthcare-associated pneumonia) Current Visit: Yes Status: Acute Currently on Vanc/zosyn. (7) Non-small cell lung cancer Current Visit: Yes Status: Chronic Known hx non-small cell lung cancer, follows Dr. Valadez. S/p R lower lobe lobectomy her eCW chart review, date unknown. Qualifiers: Laterality: left Qualified Code(s): C34.92 - Malignant neoplasm of unspecified part of left bronchus or lung Subjective Principal diagnosis: Pericarial Effusion+Recurrent L pleural effusion Interval history: Interval history: Admitted 08/19/17 for onset of several days of worsening shortness of breath and dyspnea with exertion. She has a past medical history of non-small cell lung carcinoma, s/p right lobectomy, leukemia, afib. ED CTA showed large L-sided pleural effusion. 1L of pleural fluid was removed by IR. Subsequent CXRs showed minimal pleural effusion through 08/24. Echo performed showed moderate-large pericardial effusion w/o evidence of tamponade in addition to large recurrent L-sided pleural effusion. Subxiphoid pericardial window + L chest tube insertion performed by CT surgery 08/27. Patient intubated and sedated. HR in mid 90s. Objective PUL Vital signs: Last Vital Signs Temp 97.9 F 09/01/17 08:18 Pulse 94 09/01/17 11:00 Resp 16 09/01/17 11:17 BP 99/71 09/01/17 11:17 Pulse Ox 100 09/01/17 11:17 General appearance: other (intubated and sedated) Eyes: nonicteric ENT: oropharynx moist Neck: supple Auscultation: bilateral: diminished breath sounds Cardiovascular: other (currently 70s) Integumentary: normal Extremities: no cyanosis Musculoskeletal: no deformities Ventilator Settings Ventilator Settings: Ventilator Settings, Last 8 Hours Ventilator Mode VC+ Ventilator Mode VC+ Ventilator Mode VC+ Ventilator Mode VC+ Ventilator Mode VC+ Ventilator Mode VC+ Ventilator Mode VC+ Ventilator Mode VC+ Ventilator Mode VC+ Ventilator Mode VC+ Ventilator Mode VC+ Ventilator Mode VC+ Ventilator Tidal Volume 380 Setting Ventilator Tidal Volume 380 Setting Ventilator Tidal Volume 380 Setting Ventilator Tidal Volume 380 Setting Ventilator Tidal Volume 380 Setting Ventilator Tidal Volume 380 Setting Ventilator Tidal Volume 380 Setting Ventilator Tidal Volume 380 Setting Ventilator Tidal Volume 380 Setting Ventilator Tidal Volume 380 Setting Ventilator Tidal Volume 380 Setting Ventilator Tidal Volume 380 Setting Ventilator Respiratory Rate 12 Setting Ventilator Respiratory Rate 12 Setting Ventilator Respiratory Rate 12 Setting Ventilator Respiratory Rate 12 Setting Ventilator Respiratory Rate 12 Setting Ventilator Respiratory Rate 12 Setting Ventilator Respiratory Rate 12 Setting Ventilator Respiratory Rate 12 Setting Ventilator Respiratory Rate 12 Setting Ventilator Respiratory Rate 12 Setting Ventilator Respiratory Rate 12 Setting Ventilator Respiratory Rate 12 Setting Actual Respiratory Rate 15 Actual Respiratory Rate 15 Actual Respiratory Rate 18 Actual Respiratory Rate 18 Actual Respiratory Rate 17 Actual Respiratory Rate 18 Actual Respiratory Rate 21 Actual Respiratory Rate 16 Actual Respiratory Rate 18 Actual Respiratory Rate 21 Actual Respiratory Rate 20 Actual Respiratory Rate 20 Positive End Expiratory 5 Pressure Positive End Expiratory 5 Pressure Positive End Expiratory 5 Pressure Positive End Expiratory 5 Pressure Positive End Expiratory 5 Pressure Positive End Expiratory 5 Pressure Positive End Expiratory 5 Pressure Positive End Expiratory 5 Pressure Positive End Expiratory 5 Pressure Positive End Expiratory 5 Pressure Positive End Expiratory 5 Pressure Positive End Expiratory 5 Pressure Peak Inspiratory Airway 28 Pressure Peak Inspiratory Airway 29 Pressure Peak Inspiratory Airway 29 Pressure Peak Inspiratory Airway 28 Pressure Peak Inspiratory Airway 28 Pressure Peak Inspiratory Airway 29 Pressure Peak Inspiratory Airway 35 Pressure Peak Inspiratory Airway 29 Pressure Peak Inspiratory Airway 29 Pressure Results - Laboratory Findings CBC and BMP: 09/01/17 03:53 09/01/17 03:53 ABG ABG pH 7.41 pH Units (7.32-7.45) 08/28/17 04:43 ABG pCO2 45 mmHg (35-45) 08/28/17 04:43 ABG pO2 93 mmHg (85-104) 08/28/17 04:43 ABG O2 Saturation 97 % (95-98) 08/28/17 04:43 PT/INR, D-dimer PT 13.1 Seconds (9.4-12.1) H 08/19/17 12:32 D-Dimer 4056 ng/mLFEU (0-500) H 08/19/17 12:32 Abnormal lab findings: Abnormal lab results WBC 13.0 K/mcL (4.3-11.1) H 09/01/17 03:53 RBC 3.57 M/mcL (3.82-4.97) L 09/01/17 03:53 Hgb 8.9 g/dL (11.5-15.4) L 09/01/17 03:53 Hct 28.7 % (35.3-44.9) L 09/01/17 03:53 MCV 80.4 fL (83.0-100.0) L 09/01/17 03:53 MCH 24.9 pg (28.0-33.3) L 09/01/17 03:53 MCHC 31.0 g/dL (31.6-35.5) L 09/01/17 03:53 RDW 21.9 % (11.5-14.5) H 09/01/17 03:53 Plt Count 87 K/mcL (140-400) L 09/01/17 03:53 Monocytes # 1.6 K/mcL (0.0-1.3) H 08/30/17 04:17 Nucleated RBCs/100 WBC 0.2 /100 WBC (0) H 08/29/17 04:05 Platelet Estimate Increased (Normal) H 08/29/17 04:05 Immature Plt Fraction 8.4 % (1.1-6.1) H 09/01/17 03:53 Polychromasia 1+ (Not Present) A 08/24/17 06:01 Poikilocytosis 1+ (Not Present) A 08/29/17 04:05 Anisocytosis 1+ (Not Present) A 08/29/17 04:05 Microcytosis Present (Not Present) A 08/25/17 04:19 Macrocytosis Present (Not Present) A 08/25/17 04:19 Target Cells 1+ (Not Present) A 08/25/17 04:19 Ovalocytes 1+ (Not Present) A 08/24/17 06:01 [place] Cells 1+ (Not Present) A 08/29/17 04:05 Acanthocytes (Spur) 1+ (Not Present) A 08/24/17 06:01 Schistocytes 1+ (Not Present) A 08/27/17 09:30 PT 13.1 Seconds (9.4-12.1) H 08/19/17 12:32 D-Dimer 4056 ng/mLFEU (0-500) H 08/19/17 12:32 ABG HCO3 28 mEq/L (21-27) H 08/28/17 04:43 ABG Total CO2 30 mEq/L (20-26) H 08/28/17 04:43 VBG pCO2 53 mmHg (41-51) H 08/19/17 12:50 VBG pO2 63 mmHg (25-50) H 08/19/17 12:50 VBG HCO3 29 mEq/L (21-27) H 08/19/17 12:50 Sodium 133 mEq/L (136-145) L 09/01/17 03:53 Potassium 3.1 mEq/L (3.5-5.1) L 09/01/17 03:53 Carbon Dioxide 22 mEq/L (23-29) L 09/01/17 03:53 BUN 27 mg/dL (8-23) H 09/01/17 03:53 BUN/Creatinine Ratio 32 (6-26) H 09/01/17 03:53 Calcium 7.4 mg/dL (8.6-10.3) L 09/01/17 03:53 Magnesium 1.5 mg/dL (1.6-2.6) L 08/31/17 03:09 Direct Bilirubin 0.4 mg/dL (0.0-0.2) H 08/19/17 12:32 B-Natriuretic Peptide 640 pg/mL (Less than 100) H 08/20/17 00:32 Serum Total Protein 4.7 g/dL (6.4-8.9) L 08/20/17 00:32 Albumin 2.6 g/dL (3.5-5.7) L 08/20/17 00:32 Globulin 2.1 g/dL (2.4-3.5) L 08/20/17 00:32 Urine Bilirubin Small (Negative) H 08/19/17 13:08 Ur Squamous Epith Cells Moderate per lpf (None-Few) H 08/19/17 13:08 - Microbiology Findings Microbiology Findings: Microbiology, Last 48 Hours 08/27/17 08:20 Anaerobic Culture - Final Pericardial Fluid No anaerobes were recovered. 08/28/17 22:20 Sputum Culture - Final Sputum 08/27/17 08:20 Body Fluid Culture - Final Pericardial Fluid - Clinical Findings Intake & Output: Intake & Output 08/31/17 09/01/17 09/01/17 23:59 07:59 15:59 Intake Total 628.8 / 628.8 1020.2 / 1020.2 343 / 343 Output Total 395 / 395 480 / 480 Balance 233.8 / 233.8 540.2 / 540.2 343 / 343 Weight 68.4 kg - VTE Documentation of Mechanical Device: Intermittent pneumatic compression device Consult Discharge Plan - Plan Referrals: Senait Wong, ARACELI [Primary Care Provider] - 08/26/17 2:40 pm <Azam Lofton - Last Filed: 09/01/17 23:40> Date of Encounter: 09/01/17 Objective PUL Vital signs: Last Vital Signs Temp 100.5 F H 09/01/17 20:03 Pulse 93 09/01/17 22:00 Resp 13 09/01/17 23:31 BP 103/55 09/01/17 23:31 Pulse Ox 100 09/01/17 23:31 Ventilator Settings Ventilator Settings: Ventilator Settings, Last 8 Hours Ventilator Mode VC+ Ventilator Mode VC+ Ventilator Mode VC+ Ventilator Mode VC+ Ventilator Mode VC+ Ventilator Mode VC+ Ventilator Mode VC+ Ventilator Mode VC+ Ventilator Mode VC+ Ventilator Mode VC+ Ventilator Mode VC+ Ventilator Tidal Volume 380 Setting Ventilator Tidal Volume 380 Setting Ventilator Tidal Volume 380 Setting Ventilator Tidal Volume 380 Setting Ventilator Tidal Volume 380 Setting Ventilator Tidal Volume 380 Setting Ventilator Tidal Volume 380 Setting Ventilator Tidal Volume 380 Setting Ventilator Tidal Volume 380 Setting Ventilator Tidal Volume 380 Setting Ventilator Tidal Volume 380 Setting Ventilator Respiratory Rate 12 Setting Ventilator Respiratory Rate 12 Setting Ventilator Respiratory Rate 12 Setting Ventilator Respiratory Rate 12 Setting Ventilator Respiratory Rate 12 Setting Ventilator Respiratory Rate 12 Setting Ventilator Respiratory Rate 12 Setting Ventilator Respiratory Rate 12 Setting Ventilator Respiratory Rate 12 Setting Ventilator Respiratory Rate 12 Setting Ventilator Respiratory Rate 12 Setting Actual Respiratory Rate 13 Actual Respiratory Rate 14 Actual Respiratory Rate 18 Actual Respiratory Rate 23 Actual Respiratory Rate 21 Actual Respiratory Rate 23 Actual Respiratory Rate 22 Actual Respiratory Rate 12 Actual Respiratory Rate 16 Actual Respiratory Rate 15 Actual Respiratory Rate 16 Positive End Expiratory 5 Pressure Positive End Expiratory 5 Pressure Positive End Expiratory 5 Pressure Positive End Expiratory 5 Pressure Positive End Expiratory 5 Pressure Positive End Expiratory 5 Pressure Positive End Expiratory 5 Pressure Positive End Expiratory 5 Pressure Positive End Expiratory 5 Pressure Positive End Expiratory 5 Pressure Positive End Expiratory 5 Pressure Peak Inspiratory Airway 25 Pressure Peak Inspiratory Airway 26 Pressure Peak Inspiratory Airway 27 Pressure Peak Inspiratory Airway 28 Pressure Peak Inspiratory Airway 26 Pressure Peak Inspiratory Airway 26 Pressure Peak Inspiratory Airway 27 Pressure Peak Inspiratory Airway 27 Pressure Peak Inspiratory Airway 28 Pressure Peak Inspiratory Airway 27 Pressure Peak Inspiratory Airway 26 Pressure Results - Laboratory Findings CBC and BMP: 09/01/17 03:53 09/01/17 03:53 ABG ABG pH 7.41 pH Units (7.32-7.45) 08/28/17 04:43 ABG pCO2 45 mmHg (35-45) 08/28/17 04:43 ABG pO2 93 mmHg (85-104) 08/28/17 04:43 ABG O2 Saturation 97 % (95-98) 08/28/17 04:43 PT/INR, D-dimer PT 13.1 Seconds (9.4-12.1) H 08/19/17 12:32 D-Dimer 4056 ng/mLFEU (0-500) H 08/19/17 12:32 Abnormal lab findings: Abnormal lab results WBC 13.0 K/mcL (4.3-11.1) H 09/01/17 03:53 RBC 3.57 M/mcL (3.82-4.97) L 09/01/17 03:53 Hgb 8.9 g/dL (11.5-15.4) L 09/01/17 03:53 Hct 28.7 % (35.3-44.9) L 09/01/17 03:53 MCV 80.4 fL (83.0-100.0) L 09/01/17 03:53 MCH 24.9 pg (28.0-33.3) L 09/01/17 03:53 MCHC 31.0 g/dL (31.6-35.5) L 09/01/17 03:53 RDW 21.9 % (11.5-14.5) H 09/01/17 03:53 Plt Count 87 K/mcL (140-400) L 09/01/17 03:53 Monocytes # 1.6 K/mcL (0.0-1.3) H 08/30/17 04:17 Nucleated RBCs/100 WBC 0.2 /100 WBC (0) H 08/29/17 04:05 Platelet Estimate Increased (Normal) H 08/29/17 04:05 Immature Plt Fraction 8.4 % (1.1-6.1) H 09/01/17 03:53 Polychromasia 1+ (Not Present) A 08/24/17 06:01 Poikilocytosis 1+ (Not Present) A 08/29/17 04:05 Anisocytosis 1+ (Not Present) A 08/29/17 04:05 Microcytosis Present (Not Present) A 08/25/17 04:19 Macrocytosis Present (Not Present) A 08/25/17 04:19 Target Cells 1+ (Not Present) A 08/25/17 04:19 Ovalocytes 1+ (Not Present) A 08/24/17 06:01 [place] Cells 1+ (Not Present) A 08/29/17 04:05 Acanthocytes (Spur) 1+ (Not Present) A 08/24/17 06:01 Schistocytes 1+ (Not Present) A 08/27/17 09:30 PT 13.1 Seconds (9.4-12.1) H 08/19/17 12:32 D-Dimer 4056 ng/mLFEU (0-500) H 08/19/17 12:32 ABG HCO3 28 mEq/L (21-27) H 08/28/17 04:43 ABG Total CO2 30 mEq/L (20-26) H 08/28/17 04:43 VBG pCO2 53 mmHg (41-51) H 08/19/17 12:50 VBG pO2 63 mmHg (25-50) H 08/19/17 12:50 VBG HCO3 29 mEq/L (21-27) H 08/19/17 12:50 Sodium 133 mEq/L (136-145) L 09/01/17 03:53 Potassium 3.1 mEq/L (3.5-5.1) L 09/01/17 03:53 Carbon Dioxide 22 mEq/L (23-29) L 09/01/17 03:53 BUN 27 mg/dL (8-23) H 09/01/17 03:53 BUN/Creatinine Ratio 32 (6-26) H 09/01/17 03:53 Calcium 7.4 mg/dL (8.6-10.3) L 09/01/17 03:53 Magnesium 1.5 mg/dL (1.6-2.6) L 08/31/17 03:09 Direct Bilirubin 0.4 mg/dL (0.0-0.2) H 08/19/17 12:32 B-Natriuretic Peptide 640 pg/mL (Less than 100) H 08/20/17 00:32 Serum Total Protein 4.7 g/dL (6.4-8.9) L 08/20/17 00:32 Albumin 2.6 g/dL (3.5-5.7) L 08/20/17 00:32 Globulin 2.1 g/dL (2.4-3.5) L 08/20/17 00:32 Urine Bilirubin Small (Negative) H 08/19/17 13:08 Ur Squamous Epith Cells Moderate per lpf (None-Few) H 08/19/17 13:08 - Microbiology Findings Microbiology Findings: Microbiology, Last 48 Hours 08/27/17 08:20 Anaerobic Culture - Final Pericardial Fluid No anaerobes were recovered. 08/28/17 22:20 Sputum Culture - Final Sputum - Clinical Findings Intake & Output: Intake & Output 09/01/17 09/01/17 09/01/17 07:59 15:59 23:59 Intake Total 1020.2 / 1020.2 1062 / 1062 660 / 660 Output Total 480 / 480 270 / 270 300 / 300 Balance 540.2 / 540.2 792 / 792 360 / 360 Weight 68.4 kg - Attending Attestation - Attending Attestation I saw and evaluated this patient and my medical decision-making was reviewed with the Resident Physician. I agree with the documented findings, disposition and treatment plan as described except to the extent set forth below. We independently had teaa-ed-ladv contact with the patient Patient seen and examined at bedside Labs, radiology, chart personally reviewed. Management was reviewed during multidisciplinary critical care rounds. FACILITY SERVICE ASSOCIATE:Patient is conscious following commands Pulm:Patient failed SBT cause multifactorial [place] vs fluid overload resctrictive process contributed by pleural effusion now drained to continue broad spectrum antibiotics , not able to diurese Cards:Atrial fibrillation with RVR on Amiodarone might contribute hemodynamically stability will repeat ECHO . FEN-GI: Patient has oesophageal stenosis cannot do Oral access to do nutrition will do PICC line for TPN for now then will consult GI for permanent . Difficulty in placement of PICC line due to SVC and brachiocephalic obstruction has difficulty in insertion because of difficult central vein access consulted GI since patient has severe lower esophageal stricture will attempt tomorrow to do a PEG tube explained about the benefits of procedure how important is nutrition in liberation from the ventilator . 09/01 PEG tube insertion because of hemodynamic stability .Because of PICC line is in brachiocephalic vein due to SVC stenois i put in a femoral line for possible TPN till we get GI access Renal:Labs and UOP reviewed . ID:To continue broad spectrum antibiotics for possible worsening pneumonia since with new onset of hemodynamic instability will reculture Heme/Onc:Labs reviewed Endo: Glucose Monitored Integ/MSK: Skin Care per routine ICU Nursing Protocol to prevent ulcers. Lines: All lines examined without evidence of infection : Dispo: Remains Critically ill . CODE: Full Code
[2017-09-01] MEDS: Amiodarone Premix 360 MG/200 ML BAG IVC SCH (13:32)
[2017-09-01] MEDS: Norepinephrine 4 MG in D5% in Water 250 ML IVC SCH (16:38)
[2017-09-02] MEDS: Insulin LISPRO 300 UNITS/3 ML VIAL SQ SCH ×4 (00:07→18:19)
[2017-09-02 00:21] LABS: ABG Base Excess -4 mEq/L (-2 to 3); ABG HCO3 22 mEq/L (21-27); ABG Oxygen Saturation 97 % (95-98); ABG PCO2 43 mmHg (35-45); ABG PH 7.32 pH Units (7.32-7.45); ABG PO2 104 mmHg (85-104); ABG TCO2 23 mEq/L (20-26)
[2017-09-02] MEDS: Amiodarone Premix 360 MG/200 ML BAG IVC SCH ×2 (01:14→14:58)
[2017-09-02 04:39] LABS: Hematocrit 30.5 % (35.3-44.9); Hemoglobin 9.4 g/dL (11.5-15.4); Mean Corpuscular HGB Conc 30.8 g/dL (31.6-35.5); Mean Corpuscular Hemoglobin 24.9 pg (28.0-33.3); Mean Corpuscular Volume 80.9 fL (83.0-100.0); Red Blood Count 3.77 M/mcL (3.82-4.97); Red Cell Distribution Width 21.9 % (11.5-14.5)
[2017-09-02 04:42] LABS: BUN/Creatinine Ratio 26 (6-26); Blood Urea Nitrogen 27 mg/dL (8-23); Calcium 7.3 mg/dL (8.6-10.3); Carbon Dioxide 21 mEq/L (23-29); Chloride 103 mEq/L (98-107); Glucose 86 mg/dL (70-105); Osmolality,Calculated 274 (280-300); Potassium 3.5 mEq/L (3.5-5.1); Sodium 130 mEq/L (136-145); eGFR For African Americans > 60 (> 60); eGFR For Non-African Americans 54 (> 60)
[2017-09-02 04:43] LABS: Platelet Count 82 K/mcL (140-400)
--- NOTE | 2017-09-02 04:53 | Pulmonology Progress Note ---
<AngelAmarjit Dominick - Last Filed: 09/02/17 06:32> Date of Encounter: 09/02/17 Time of Encounter: 06:32 Assessment and Plan (1) Acute and chronic respiratory failure Current Visit: Yes Status: Acute In the setting of right middle and lower lobectomy, chronic RUL consolidation/ collapse, non-small cell lung cancer, COPD. Intubated. Failed CPAP yesterday. Sedated: Precedex Analgesic: Fentanyl Consider re-attempting wean to CPAP trial today. Extubate to nasal cannulae pending CPAP trial. Requires increasing pressor support Qualifiers: Respiratory failure complication: hypoxia Qualified Code(s): J96.21 - Acute and chronic respiratory failure with hypoxia (2) HCAP (healthcare-associated pneumonia) Current Visit: Yes Status: Acute Left basilar atelectasis. Vancomycin day 14 Zosyn day 14 Blood culture 1 (08/19) (-) Blood culture 2 (08/19) (-) (3) Pleural effusion on left Current Visit: Yes Status: Acute Stable on CXR. No pneumothorax. s/p thoracic chest tube insertion 08/28 (4) Pericardial effusion Current Visit: Yes Status: Acute Echo 08/26/17: LVEF 60%. mod-lg pericardial effusion with greatest measurement 1 /8cm at LV boarder. No tamponade. Subxiphoid pericardial window 08/27/17 Pericardial fluid: (-) anaerobes, (-) acid fast, (-) bacteria Pericardial window tissue sent for permanent section. Mediastinal drain (5) Atrial fibrillation with RVR Current Visit: Yes Status: Chronic Paroxysmal Amiodarone gtt (6) Non-small cell lung cancer Current Visit: Yes Status: Chronic Known hx non-small cell lung cancer, follows Dr. Valadez. S/p R lower lobe lobectomy her eCW chart review, date unknown. Qualifiers: Laterality: left Qualified Code(s): C34.92 - Malignant neoplasm of unspecified part of left bronchus or lung Subjective Principal diagnosis: Pericarial Effusion+Recurrent L pleural effusion Interval history: Mrs. Wong, 72yo female, presented to ED 08/29/17 for progressive dyspnea with exertion. She carries a past medical history of non-small cell lung carcinoma, s/p right lobectomy, leukemia, afib. 08/27 pericardial window with left thoracostomy 02/08 thoracocentesis Hospital day 14 No acute events overnight. Patient continues to spontaneously convert to NSR and revert to A. Fib while on amiodarone drip. BP has been adequate with assistance from levophed. She continues to persistently fail CPAP. Objective PUL Vital signs: Last Vital Signs Temp 98.3 F 09/02/17 04:22 Pulse 89 09/02/17 04:00 Resp 14 09/02/17 04:00 BP 92/55 09/02/17 04:00 Pulse Ox 100 09/02/17 04:00 Ventilator Settings Ventilator Settings: Ventilator Settings, Last 8 Hours Ventilator Mode VC+ Ventilator Mode VC+ Ventilator Mode VC+ Ventilator Mode VC+ Ventilator Mode VC+ Ventilator Mode VC+ Ventilator Mode VC+ Ventilator Mode VC+ Ventilator Mode VC+ Ventilator Mode VC+ Ventilator Mode VC+ Ventilator Mode VC+ Ventilator Mode VC+ Ventilator Tidal Volume 380 Setting Ventilator Tidal Volume 380 Setting Ventilator Tidal Volume 380 Setting Ventilator Tidal Volume 380 Setting Ventilator Tidal Volume 380 Setting Ventilator Tidal Volume 380 Setting Ventilator Tidal Volume 380 Setting Ventilator Tidal Volume 380 Setting Ventilator Tidal Volume 380 Setting Ventilator Tidal Volume 380 Setting Ventilator Tidal Volume 380 Setting Ventilator Tidal Volume 380 Setting Ventilator Tidal Volume 380 Setting Ventilator Respiratory Rate 12 Setting Ventilator Respiratory Rate 12 Setting Ventilator Respiratory Rate 12 Setting Ventilator Respiratory Rate 12 Setting Ventilator Respiratory Rate 12 Setting Ventilator Respiratory Rate 12 Setting Ventilator Respiratory Rate 12 Setting Ventilator Respiratory Rate 12 Setting Ventilator Respiratory Rate 12 Setting Ventilator Respiratory Rate 12 Setting Ventilator Respiratory Rate 12 Setting Ventilator Respiratory Rate 12 Setting Ventilator Respiratory Rate 12 Setting Actual Respiratory Rate 14 Actual Respiratory Rate 12 Actual Respiratory Rate 14 Actual Respiratory Rate 14 Actual Respiratory Rate 14 Actual Respiratory Rate 14 Actual Respiratory Rate 21 Actual Respiratory Rate 13 Actual Respiratory Rate 14 Actual Respiratory Rate 14 Actual Respiratory Rate 18 Actual Respiratory Rate 23 Positive End Expiratory 5 Pressure Positive End Expiratory 5 Pressure Positive End Expiratory 5 Pressure Positive End Expiratory 5 Pressure Positive End Expiratory 5 Pressure Positive End Expiratory 5 Pressure Positive End Expiratory 5 Pressure Positive End Expiratory 5 Pressure Positive End Expiratory 5 Pressure Positive End Expiratory 5 Pressure Positive End Expiratory 5 Pressure Positive End Expiratory 5 Pressure Positive End Expiratory 5 Pressure Peak Inspiratory Airway 25 Pressure Peak Inspiratory Airway 26 Pressure Peak Inspiratory Airway 26 Pressure Peak Inspiratory Airway 25 Pressure Peak Inspiratory Airway 26 Pressure Peak Inspiratory Airway 28 Pressure Peak Inspiratory Airway 29 Pressure Peak Inspiratory Airway 25 Pressure Peak Inspiratory Airway 25 Pressure Peak Inspiratory Airway 26 Pressure Peak Inspiratory Airway 27 Pressure Peak Inspiratory Airway 28 Pressure Results - Laboratory Findings CBC and BMP: 09/02/17 03:46 09/02/17 03:46 ABG ABG pH 7.32 pH Units (7.32-7.45) 09/02/17 00:12 ABG pCO2 43 mmHg (35-45) 09/02/17 00:12 ABG pO2 104 mmHg (85-104) 09/02/17 00:12 ABG O2 Saturation 97 % (95-98) 09/02/17 00:12 PT/INR, D-dimer PT 13.1 Seconds (9.4-12.1) H 08/19/17 12:32 D-Dimer 4056 ng/mLFEU (0-500) H 08/19/17 12:32 Abnormal lab findings: Abnormal lab results WBC 17.8 K/mcL (4.3-11.1) H 09/02/17 03:46 RBC 3.77 M/mcL (3.82-4.97) L 09/02/17 03:46 Hgb 9.4 g/dL (11.5-15.4) L 09/02/17 03:46 Hct 30.5 % (35.3-44.9) L 09/02/17 03:46 MCV 80.9 fL (83.0-100.0) L 09/02/17 03:46 MCH 24.9 pg (28.0-33.3) L 09/02/17 03:46 MCHC 30.8 g/dL (31.6-35.5) L 09/02/17 03:46 RDW 21.9 % (11.5-14.5) H 09/02/17 03:46 Plt Count 82 K/mcL (140-400) L 09/02/17 03:46 Monocytes # 1.6 K/mcL (0.0-1.3) H 08/30/17 04:17 Nucleated RBCs/100 WBC 0.2 /100 WBC (0) H 08/29/17 04:05 Platelet Estimate Increased (Normal) H 08/29/17 04:05 Immature Plt Fraction 10.0 % (1.1-6.1) H 09/02/17 03:46 Polychromasia 1+ (Not Present) A 08/24/17 06:01 Poikilocytosis 1+ (Not Present) A 08/29/17 04:05 Anisocytosis 1+ (Not Present) A 08/29/17 04:05 Microcytosis Present (Not Present) A 08/25/17 04:19 Macrocytosis Present (Not Present) A 08/25/17 04:19 Target Cells 1+ (Not Present) A 08/25/17 04:19 Ovalocytes 1+ (Not Present) A 08/24/17 06:01 Jeffrey Cells 1+ (Not Present) A 08/29/17 04:05 Acanthocytes (Spur) 1+ (Not Present) A 08/24/17 06:01 Schistocytes 1+ (Not Present) A 08/27/17 09:30 PT 13.1 Seconds (9.4-12.1) H 08/19/17 12:32 D-Dimer 4056 ng/mLFEU (0-500) H 08/19/17 12:32 ABG Base Excess -4 mEq/L (-2 to 3) L 09/02/17 00:12 VBG pCO2 53 mmHg (41-51) H 08/19/17 12:50 VBG pO2 63 mmHg (25-50) H 08/19/17 12:50 VBG HCO3 29 mEq/L (21-27) H 08/19/17 12:50 Sodium 130 mEq/L (136-145) L 09/02/17 03:46 Carbon Dioxide 21 mEq/L (23-29) L 09/02/17 03:46 BUN 27 mg/dL (8-23) H 09/02/17 03:46 Est GFR (Non-Af Amer) 54 (> 60) L 09/02/17 03:46 Calculated Osmolality 274 (280-300) L 09/02/17 03:46 Calcium 7.3 mg/dL (8.6-10.3) L 09/02/17 03:46 Magnesium 1.5 mg/dL (1.6-2.6) L 08/31/17 03:09 Direct Bilirubin 0.4 mg/dL (0.0-0.2) H 08/19/17 12:32 B-Natriuretic Peptide 640 pg/mL (Less than 100) H 08/20/17 00:32 Serum Total Protein 4.7 g/dL (6.4-8.9) L 08/20/17 00:32 Albumin 2.6 g/dL (3.5-5.7) L 08/20/17 00:32 Globulin 2.1 g/dL (2.4-3.5) L 08/20/17 00:32 Urine Bilirubin Small (Negative) H 08/19/17 13:08 Ur Squamous Epith Cells Moderate per lpf (None-Few) H 08/19/17 13:08 - Microbiology Findings Microbiology Findings: Microbiology, Last 48 Hours 08/27/17 08:20 Anaerobic Culture - Final Pericardial Fluid No anaerobes were recovered. 08/28/17 22:20 Sputum Culture - Final Sputum - Clinical Findings Intake & Output: Intake & Output 09/01/17 09/01/17 09/02/17 15:59 23:59 07:59 Intake Total 1062 / 1062 760 / 760 200 / 200 Output Total 270 / 270 430 / 430 170 / 170 Balance 792 / 792 330 / 330 30 / 30 - VTE Documentation of Mechanical Device: Intermittent pneumatic compression device Consult Discharge Plan - Plan Referrals: Senait Wong, [facility]ICKER [Primary Care Provider] - 08/26/17 2:40 pm <Azam Lofton - Last Filed: 09/02/17 23:41> Date of Encounter: 09/02/17 Objective PUL Vital signs: Last Vital Signs Temp 98.2 F 09/02/17 20:00 Pulse 86 09/02/17 22:00 Resp 14 09/02/17 22:00 BP 104/55 09/02/17 22:00 Pulse Ox 100 09/02/17 22:00 Ventilator Settings Ventilator Settings: Ventilator Settings, Last 8 Hours Ventilator Mode VC+ Ventilator Mode VC+ Ventilator Mode VC+ Ventilator Mode VC+ Ventilator Mode VC+ Ventilator Mode VC+ Ventilator Mode VC+ Ventilator Mode VC+ Ventilator Mode VC+ Ventilator Tidal Volume 380 Setting Ventilator Tidal Volume 380 Setting Ventilator Tidal Volume 380 Setting Ventilator Tidal Volume 380 Setting Ventilator Tidal Volume 380 Setting Ventilator Tidal Volume 380 Setting Ventilator Tidal Volume 380 Setting Ventilator Tidal Volume 380 Setting Ventilator Tidal Volume 380 Setting Ventilator Respiratory Rate 12 Setting Ventilator Respiratory Rate 12 Setting Ventilator Respiratory Rate 12 Setting Ventilator Respiratory Rate 12 Setting Ventilator Respiratory Rate 12 Setting Ventilator Respiratory Rate 12 Setting Ventilator Respiratory Rate 12 Setting Ventilator Respiratory Rate 12 Setting Ventilator Respiratory Rate 12 Setting Actual Respiratory Rate 15 Actual Respiratory Rate 15 Actual Respiratory Rate 15 Actual Respiratory Rate 15 Actual Respiratory Rate 13 Actual Respiratory Rate 14 Actual Respiratory Rate 12 Actual Respiratory Rate 13 Actual Respiratory Rate 12 Positive End Expiratory 5 Pressure Positive End Expiratory 5 Pressure Positive End Expiratory 5 Pressure Positive End Expiratory 5 Pressure Positive End Expiratory 5 Pressure Positive End Expiratory 5 Pressure Positive End Expiratory 5 Pressure Positive End Expiratory 5 Pressure Positive End Expiratory 5 Pressure Peak Inspiratory Airway 23 Pressure Peak Inspiratory Airway 25 Pressure Peak Inspiratory Airway 25 Pressure Peak Inspiratory Airway 28 Pressure Peak Inspiratory Airway 27 Pressure Peak Inspiratory Airway 27 Pressure Peak Inspiratory Airway 29 Pressure Peak Inspiratory Airway 27 Pressure Peak Inspiratory Airway 29 Pressure Results - Laboratory Findings CBC and BMP: 09/02/17 03:46 09/02/17 16:27 ABG ABG pH 7.32 pH Units (7.32-7.45) 09/02/17 00:12 ABG pCO2 43 mmHg (35-45) 09/02/17 00:12 ABG pO2 104 mmHg (85-104) 09/02/17 00:12 ABG O2 Saturation 97 % (95-98) 09/02/17 00:12 PT/INR, D-dimer PT 13.1 Seconds (9.4-12.1) H 08/19/17 12:32 D-Dimer 4056 ng/mLFEU (0-500) H 08/19/17 12:32 Abnormal lab findings: Abnormal lab results WBC 17.8 K/mcL (4.3-11.1) H 09/02/17 03:46 RBC 3.77 M/mcL (3.82-4.97) L 09/02/17 03:46 Hgb 9.4 g/dL (11.5-15.4) L 09/02/17 03:46 Hct 30.5 % (35.3-44.9) L 09/02/17 03:46 MCV 80.9 fL (83.0-100.0) L 09/02/17 03:46 MCH 24.9 pg (28.0-33.3) L 09/02/17 03:46 MCHC 30.8 g/dL (31.6-35.5) L 09/02/17 03:46 RDW 21.9 % (11.5-14.5) H 09/02/17 03:46 Plt Count 82 K/mcL (140-400) L 09/02/17 03:46 Monocytes # 1.6 K/mcL (0.0-1.3) H 08/30/17 04:17 Nucleated RBCs/100 WBC 0.2 /100 WBC (0) H 08/29/17 04:05 Platelet Estimate Increased (Normal) H 08/29/17 04:05 Immature Plt Fraction 10.0 % (1.1-6.1) H 09/02/17 03:46 Polychromasia 1+ (Not Present) A 08/24/17 06:01 Poikilocytosis 1+ (Not Present) A 08/29/17 04:05 Anisocytosis 1+ (Not Present) A 08/29/17 04:05 Microcytosis Present (Not Present) A 08/25/17 04:19 Macrocytosis Present (Not Present) A 08/25/17 04:19 Target Cells 1+ (Not Present) A 08/25/17 04:19 Ovalocytes 1+ (Not Present) A 08/24/17 06:01 Jeffrey Cells 1+ (Not Present) A 08/29/17 04:05 Acanthocytes (Spur) 1+ (Not Present) A 08/24/17 06:01 Schistocytes 1+ (Not Present) A 08/27/17 09:30 PT 13.1 Seconds (9.4-12.1) H 08/19/17 12:32 D-Dimer 4056 ng/mLFEU (0-500) H 08/19/17 12:32 ABG Base Excess -4 mEq/L (-2 to 3) L 09/02/17 00:12 VBG pCO2 53 mmHg (41-51) H 08/19/17 12:50 VBG pO2 63 mmHg (25-50) H 08/19/17 12:50 VBG HCO3 29 mEq/L (21-27) H 08/19/17 12:50 Sodium 130 mEq/L (136-145) L 09/02/17 03:46 Carbon Dioxide 21 mEq/L (23-29) L 09/02/17 03:46 BUN 27 mg/dL (8-23) H 09/02/17 03:46 Est GFR (Non-Af Amer) 54 (> 60) L 09/02/17 03:46 POC Glucose 155 (58-89) H 09/02/17 17:46 Calculated Osmolality 274 (280-300) L 09/02/17 03:46 Calcium 7.3 mg/dL (8.6-10.3) L 09/02/17 03:46 Total Bilirubin 1.3 mg/dL (0.3-1.0) H 09/02/17 16:27 Direct Bilirubin 0.6 mg/dL (0.0-0.2) H 09/02/17 16:27 B-Natriuretic Peptide 640 pg/mL (Less than 100) H 08/20/17 00:32 Serum Total Protein 4.0 g/dL (6.4-8.9) L 09/02/17 16:27 Albumin 2.1 g/dL (3.5-5.7) L 09/02/17 16:27 Globulin 1.9 g/dL (2.4-3.5) L 09/02/17 16:27 Urine Bilirubin Small (Negative) H 08/19/17 13:08 Ur Squamous Epith Cells Moderate per lpf (None-Few) H 08/19/17 13:08 - Microbiology Findings Microbiology Findings: Microbiology, Last 48 Hours 08/27/17 08:20 Anaerobic Culture - Final Pericardial Fluid No anaerobes were recovered. - Clinical Findings Intake & Output: Intake & Output 09/02/17 09/02/17 09/02/17 07:59 15:59 23:59 Intake Total 661 / 661 939 / 939 324 / 324 Output Total 170 / 170 425 / 425 435 / 435 Balance 491 / 491 514 / 514 -111 / -111 - Attending Attestation - Attending Attestation I saw and evaluated this patient and my medical decision-making was reviewed with the Resident Physician. I agree with the documented findings, disposition and treatment plan as described except to the extent set forth below. We independently had [id number] contact with the patient Patient seen and examined at bedside Labs, radiology, chart personally reviewed. Management was reviewed during multidisciplinary critical care rounds. 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 The imaging didnt show any collection of fluid to be drained . To continue lung protective strategy . Cards:Atrial fibrillation with RVR on Amiodarone might contribute hemodynamically stability still on Vasporessors . Patient is 16 liter positive FEN-GI: Patient has oesophageal stenosis cannot do Oral access to do nutrition will do PICC line for TPN for now then will consult GI for permanent . Difficulty in placement of PICC line due to SVC and brachiocephalic obstruction has difficulty in insertion because of difficult central vein access consulted GI since patient has severe lower esophageal stricture will attempt tomorrow to do a PEG tube explained about the benefits of procedure how important is nutrition in liberation from the ventilator . 09/01 PEG tube insertion because of hemodynamic stability .Because of PICC line is in brachiocephalic vein due to SVC stenois i put in a femoral line for possible TPN till we get GI access 09/02 Postoponed the PEG tube placement will start TPN through the femoral central line for now Renal:Labs and UOP reviewed . ID:To continue broad spectrum antibiotics with Linezolid and meropenem for possible worsening pneumonia since with new onset of hemodynamic instability will follow cultures Heme/Onc:Labs reviewed Endo: Glucose Monitored Integ/MSK: Skin Care per routine ICU Nursing Protocol to prevent ulcers. Lines: All lines examined without evidence of infection : Dispo: Remains Critically ill . CODE: Palliative Care Onboard . Code status changed to DNRCCA
[2017-09-02] MEDS: Loratadine 10 MG TABLET PO SCH (05:57)
[2017-09-02] MEDS: Gabapentin 300 MG CAPSULE PO SCH ×2 (05:58→20:55)
[2017-09-02] MEDS: Folic Acid 1 MG TABLET PO SCH (05:58)
[2017-09-02] MEDS: ERLOTINIB HCL 100 MG PO SCH (05:58)
[2017-09-02] MEDS: Chlorhexidine Rinse 15 ML MOUTHWASH MM SCH ×2 (08:01→20:54)
[2017-09-02] MEDS: Pantoprazole 40 MG VIAL IVP SCH ×2 (08:01→21:07)
[2017-09-02] MEDS: Norepinephrine 4 MG in D5% in Water 250 ML IVC SCH ×2 (08:03→20:51)
[2017-09-02] MEDS: FentaNYL (PF) 1,000 MCG in 0.9 % Sodium Chloride 80 ML IVC SCH ×2 (09:00→20:52)
[2017-09-02 09:23] LABS: Magnesium 1.6 mg/dL (1.6-2.6); Phosphorous 3.1 mg/dL (2.7-4.5)
--- NOTE | 2017-09-02 09:39 | Cardiothoracic Progress Note ---
Date of Encounter: 09/02/17 Time of Encounter: 09:37 - Assessment and plan (1) Non-small cell lung cancer Current Visit: Yes Status: Chronic The assessment and plan as outlined above was discussed with the patient and/or family members who expressed understanding and agreement. All questions were answered. I will leave the chest tubes for now. Hopefully, they can be removed in 2-3 days. Qualifiers: Laterality: left Qualified Code(s): C34.92 - Malignant neoplasm of unspecified part of left bronchus or lung - Subjective Interval history: The patient is intubated and sedated. She is still on pressors. Vital Signs, Last 4 Hours Temp Pulse Resp BP Pulse Ox 09/02/17 08:00 98.5 F 94 15 87/55 100 09/02/17 07:47 20 96/56 100 09/02/17 07:30 105 20 96/58 100 09/02/17 06:00 88 20 98/58 100 Oxgyen Flow Rate Oxygen Flow Rate (LPM) 4 Clinical Data, last 8 Hours Output, Chest Tube Drainage 10 Amount [Right Anterior Chest # 2] Output, Chest Tube Drainage 10 Amount [Right Anterior Chest # 2] Output, Chest Tube Drainage 80 Amount [Left Upper Anterior Chest #1] Output, Chest Tube Drainage 60 Amount [Left Upper Anterior Chest #1] Weight 08/31/17 09/01/17 09/02/17 23:59 23:59 23:59 Weight 67.22 kg 68.4 kg The left lung is clear to percussion and auscultation. There are no breath sounds on the right side. Heart appears to be in a normal sinus rhythm on a amiodarone drip. Chest tube drainage is minimal and there is no air leak. Chest x-ray reveals a chronic whiteout of the right lung. - Labs 09/02/17 03:46 09/02/17 03:46 Lab Results, Last 24 hours 09/02/17 09/02/17 03:46 03:46 WBC 17.8 H Hgb 9.4 L Hct 30.5 L Plt Count 82 L Sodium 130 L Potassium 3.5 Chloride 103 Carbon Dioxide 21 L BUN 27 H Creatinine 1.02 Glucose 86 Calcium 7.3 L Magnesium 1.6 - VTE Documentation of Mechanical Device: Intermittent pneumatic compression device Consult Discharge Plan - Plan Referrals: Senait Wnog, APARTMENT MAINTENANCE [Primary Care Provider] - 08/26/17 2:40 pm
--- NOTE | 2017-09-02 11:25 | Gastroenterology Progress Note ---
<Santos Galan - Last Filed: 09/02/17 11:22> Date of Encounter: 09/02/17 Time of Encounter: 09:55 - Assessment and plan (1) History of esophagitis Current Visit: No Status: Acute Assessment and plan: EGD 07/28/2017 showed severe erosive ulcerative esophagitis. OG tube unable to be passed into stomach. Plan for PEG tube once patient is more stable. (2) Non-small cell lung cancer Current Visit: Yes Status: Chronic Qualifiers: Laterality: left Qualified Code(s): C34.92 - Malignant neoplasm of unspecified part of left bronchus or lung - Time Spent With Patient Total time spent is greater than 50% in coordination of care (as documented) at patient's floor/unit and/or counseling patient: - Subjective Interval history: The patient remains intubated, sedated, and continues to require pressors. - Constitutional Vitals: Temp Pulse Resp BP Pulse Ox 98.5 F 97 16 89/52 100 09/02/17 08:00 09/02/17 10:00 09/02/17 10:00 09/02/17 10:00 09/02/17 10:00 Exam: Intubated and sedated - Head Head exam: Present: atraumatic, normocephalic - Eye Eye exam: Present: normal appearance, sclera anicteric - ENT Additional comments: ET tube in place - Neck Neck exam general surgery: Present: normal inspection, trachea midline - Respiratory Additional comments: Mechanical breath sounds - Cardiovascular Cardiovascular exam: Present: RRR, +S1, +S2 - GI/Abdominal GI/Abdominal exam: Present: soft, no peritoneal signs. Absent: distended, firm , guarding - Rectal Rectal exam: Present: deferred - Extremities Exam Extremities exam: Present: warm - Skin Skin exam: Present: dry, intact Results - Labs CBC & Chem 7: 09/02/17 03:46 09/02/17 03:46 Labs: Last Result Calcium 7.3 mg/dL (8.6-10.3) L 09/02/17 03:46 Troponin I < 0.03 ng/mL (< 0.04) 08/20/17 06:05 Entire Visit Hgb 9.4 g/dL (11.5-15.4) L 09/02/17 03:46 Hct 30.5 % (35.3-44.9) L 09/02/17 03:46 PT 13.1 Seconds (9.4-12.1) H 08/19/17 12:32 Total Bilirubin 0.9 mg/dL (0.3-1.0) 08/20/17 00:32 AST 20 Units/L (13-39) 08/20/17 00:32 ALT 12 Units/L (7-52) 08/20/17 00:32 - ABG ABG results: ABG ABG pH 7.32 pH Units (7.32-7.45) 09/02/17 00:12 ABG pCO2 43 mmHg (35-45) 09/02/17 00:12 ABG pO2 104 mmHg (85-104) 09/02/17 00:12 ABG O2 Saturation 97 % (95-98) 09/02/17 00:12 PT/INR, D-dimer PT 13.1 Seconds (9.4-12.1) H 08/19/17 12:32 D-Dimer 4056 ng/mLFEU (0-500) H 08/19/17 12:32 - Impressions Impressions Chest X-Ray 09/02/17 00:19 IMPRESSION: Developing left basilar atelectasis or pneumonia. D/ / Guido Gomes MD / Guido Gomes MD Interpreting Provider: Guido Gomes MD - VTE Documentation of Mechanical Device: Intermittent pneumatic compression device Consult Discharge Plan - Plan Referrals: Senait Wong CNP [Primary Care Provider] - 08/26/17 2:40 pm <Mary Stubbs - Last Filed: 09/02/17 22:14> Date of Encounter: 09/02/17 Time of Encounter: 14:00 - Time Spent With Patient Total time spent is greater than 50% in coordination of care (as documented) at patient's floor/unit and/or counseling patient: - Constitutional Vitals: Temp Pulse Resp BP Pulse Ox 98.2 F 86 14 104/55 100 09/02/17 20:00 09/02/17 22:00 09/02/17 22:00 09/02/17 22:00 09/02/17 22:00 Results - Labs CBC & Chem 7: 09/02/17 03:46 09/02/17 16:27 Labs: Last Result Calcium 7.3 mg/dL (8.6-10.3) L 09/02/17 03:46 Troponin I < 0.03 ng/mL (< 0.04) 08/20/17 06:05 Entire Visit Hgb 9.4 g/dL (11.5-15.4) L 09/02/17 03:46 Hct 30.5 % (35.3-44.9) L 09/02/17 03:46 PT 13.1 Seconds (9.4-12.1) H 08/19/17 12:32 Total Bilirubin 1.3 mg/dL (0.3-1.0) H 09/02/17 16:27 AST 35 Units/L (13-39) 09/02/17 16:27 ALT 7 Units/L (7-52) 09/02/17 16:27 - ABG ABG results: ABG ABG pH 7.32 pH Units (7.32-7.45) 09/02/17 00:12 ABG pCO2 43 mmHg (35-45) 09/02/17 00:12 ABG pO2 104 mmHg (85-104) 09/02/17 00:12 ABG O2 Saturation 97 % (95-98) 09/02/17 00:12 PT/INR, D-dimer PT 13.1 Seconds (9.4-12.1) H 08/19/17 12:32 D-Dimer 4056 ng/mLFEU (0-500) H 08/19/17 12:32 - Impressions Impressions Chest X-Ray 09/02/17 00:19 IMPRESSION: Developing left basilar atelectasis or pneumonia. D/ / Guido Gomes MD / Guido Gomes MD Interpreting Provider: Guido Gomes MD Abdomen/Pelvis CT 09/02/17 11:00 IMPRESSION: Diffuse body wall edema, with mild haziness within the mesentery, with a small volume of pelvic ascites. Changes suggest possible third-spacing with anasarca. No loculated appearing fluid collection is seen to suggest abscess. The distal common bile duct is markedly increased in size measuring 15 mm, where is in 2013 this same area measured approximately 8 mm. No distal hyperdense calculus is seen to suggest a definite obstructive stone. Correlate with laboratory evaluation. This could also be assessed with MRCP or ERCP if clinically indicated. D/ / Thierry Naranjo MD / Thierry Naranjo MD Interpreting Provider: Thierry Naranjo MD Chest CT 09/02/17 11:00 IMPRESSION: 1. Very tiny anterior left pneumothorax adjacent to the left chest tube. 2. No significant atelectatic changes as the left lung is expanded. No pleural effusion. 3. Stable total opacification of the right hemithorax. D/ / 09/02/2017 11:47:41 Santos Johnson MD / nevaeh Interpreting Provider: Santos Johnson MD - Attending Attestation I saw this patient and my medical decision-making was reviewed with SOFTWARE QUALITY TESTER. I agree with the documented findings, disposition and treatment plan as described except to the extent set forth below.
[2017-09-02] MEDS ORDERED: Heparin 1,000 UNITS/500 mL 500 ML ONE (11:35)
[2017-09-02] MEDS: Meropenem 1,000 MG in Water for inj. (sterile) 20 ML 10 ML IVP SCH (12:37)
--- NOTE | 2017-09-02 12:42 | Palliative - Consult Note ---
Date of Encounter: 09/02/17 Time of Encounter: 11:15 - Assessment and Plan (1) Acute and chronic respiratory failure Current Visit: Yes Status: Acute Assessment and plan: Continues to be on ventilator. Attempts at CPAP have been unsuccessful thus far. Plan is to continue to try to wean from the vent plan per hospitalist team. Qualifiers: Respiratory failure complication: hypoxia Qualified Code(s): J96.21 - Acute and chronic respiratory failure with hypoxia (2) Goals of care, counseling/discussion Current Visit: Yes Status: Acute Assessment and plan: Initially full code, after discussion with patient's daughter patient is now DNR CCA. Since cancer has been able for quite some time at this point. Does have a history of resection of part of her right lung and now has problems with her left lung. Difficult to wean from the ventilator however these attempts are ongoing. Her daughter her medical power of deputy commonwealth's attorney, other and had numerous discussions about serious end-of-life issues and she knows that her mother would not want to be maintained on machines long-term. She want to be maintained on pressors long-term. We will update was given to family, patient is now DNR CCA and will be to try to wean from the ventilator and then ultimately return home. (3) Bacterial lobar pneumonia Current Visit: No Status: Acute Assessment and plan: Cultures thus far negative, patient is on antibiotics plan per ICU team. (4) Dysphagia Current Visit: No Status: Acute Assessment and plan: Per GI patient has severe erosive esophagitis. Apparently the swallowing associated ear plans were being made for a G-tube prior to the patient's cartilage effusion requiring drainage. In is for G-tube replaced after the patient is more stable. GI is following. Qualifiers: Dysphagia type: unspecified Qualified Code(s): R13.10 - Dysphagia, unspecified (5) Non-small cell lung cancer Current Visit: Yes Status: Chronic Assessment and plan: Was no sign of any recurrence or advancement of the disease last visit to cancer Center in March last year. Patient has been on maintenance therapy of Tarceva. Qualifiers: Laterality: left Qualified Code(s): C34.92 - Malignant neoplasm of unspecified part of left bronchus or lung (6) Pericardial effusion Current Visit: Yes Status: Acute Assessment and plan: Postop day 6 thoracic surgery is following. Per the nursing staff plan is first chest tubes to come out on Wednesday. (7) Pneumonia Current Visit: No Status: Acute Assessment and plan: But cultures thus far negative, patient continues on antibiotics Qualifiers: Pneumonia type: due to unspecified organism Laterality: unspecified laterality Lung location: unspecified part of lung Qualified Code(s): J18.9 - Pneumonia, unspecified organism Palliative-CN HPI - Data of Consult Patient: new to practice Requesting Physician: Jermaine Barnes Primary Care Provider: Senait Wong CNP - Consult Narrative Palliative Care/Comfort Measures: Palliative care History of present illness: Ms. Wong is a 72 year old female With a past history of lung cancer which has been stable at least since March of last year Shen history of COPD CAD atrial fibrillation and diastolic heart failure came in with increasing shortness of breath and hospitalized just 2 weeks previous. Her primary care doctor and was noted to have oxygen saturations 70%. X-ray showed pneumonia and a large left pleural effusion of note, already had observe her right lung resected in the third lobe is consolidated. Is also in atrial fibrillation at that time. Instead the fluid on the left-hand side has been removed a pericardial effusion for which a pericardial window had to be placed. Patient currently has chest tubes in on the left-hand side 2. Required intubation for the surgery and she has been intubated since the and has been unable to be weaned. Currently she is also on 2 pressors. In no discomfort at all at this point in time. She is being treated actively for her acquired pneumonia. Point in time her blood cultures are all negative thus far. Patient has medical power of deputy commonwealth's attorney established as well as a living will. Palliative care was consulted regarding goals of care. CC: Jermaine Barnes sob Past Med Surg Social Fam HX - Past Medical History Medical history: atrial fibrillation, cancer (Non-small cell right lung carcinoma), COPD, coronary artery disease, GERD, myocardial infarction, seizures Psychiatric history: anxiety, depression - Past Surgical History Surgical History: angioplasty/stent, cancer surgery (Right lower lobe resection) , cholecystectomy - Social History Smoking Status: Former smoker Packs per day: 0.5 PPD X 20 yrs Smokeless Tobacco Status: No Alcohol use: none Drug use: none - Family History Mother Hx Family Cardiac Disorders: Yes Father Hx Family Cardiac Disorders: Yes Medications and Allergies Albuterol Neb [Proventil Neb] 2.5 mg IH Q4HR 05/21/15 [History] Calcium Carbonate [Tums] 500 mg PO DAILY 05/21/15 [History] Docusate [Colace] 100 mg PO BID 05/21/15 [History] Oxygen 2 l NS AD 10/28/16 [History] Clopidogrel [Plavix] 75 mg PO DAILY #30 tablet 01/13/17 [Rx] Ranitidine HCl [Zantac] 150 mg PO BID #180 tablet 02/10/17 [Rx] Atorvastatin [Lipitor] 40 mg PO HS 03/19/17 [History] Folic Acid 1 mg PO DAILY #90 tablet 05/06/17 [Rx] Pantoprazole Sodium [Protonix] 40 mg PO DAILY 05/11/17 [History] Ferrous Sulfate 325 mg PO BID #60 tablet 05/15/17 [Rx] Aspirin 81 mg PO DAILY 07/20/17 [History] Diltiazem [Cardizem] 30 mg PO Q6HR #60 tablet 07/29/17 [Rx] Fluconazole [Diflucan] 100 mg PO DAILY #19 tablet 07/29/17 [Rx] Sucralfate [Carafate] 1 gm PO QID #30 oral.susp 07/29/17 [Rx] Erlotinib HCl [Tarceva] 100 mg PO DAILY 30 Days tablet 08/04/17 [Rx] Furosemide [Lasix] 20 mg PO DAILY #30 tablet 08/11/17 [Rx] Gabapentin [Neurontin] 600 mg PO BID 08/19/17 [History] Loratadine [Allergy Relief] 10 mg PO DAILY 08/19/17 [History] Metoprolol Succinate 12.5 mg PO BID 08/20/17 [History] 3 Allergy/AdvReac Type Severity Reaction Status Date / Time No Known Allergies Allergy Verified 03/19/17 09:01 ROS unobtainable: due to mental status (Sedated on vent) Palliative Care-Exam - Constitutional Vitals: Temp Pulse Resp BP Pulse Ox 98.5 F 95 20 110/57 99 09/02/17 08:00 09/02/17 12:20 09/02/17 12:20 09/02/17 12:20 09/02/17 12:20 General appearance: Present: no acute distress - Head Head Exam: Present: atraumatic, normal inspection - Eye Eye exam: Present: normal appearance (Eyes are closed) - Respiratory Respiratory exam: Present: decreased breath sounds (On ventilator) Additional comments: Chest tubes 2 on the left-hand side - Cardiovascular Cardiovascular exam: Present: RRR, tachycardia - GI/Abdominal Exam GI/Abdominal exam: Present: normal bowel sounds, soft. Absent: tenderness - Catheter Type: Urethral (Mo) - Extremities Exam Extremities exam: Absent: pedal edema, tenderness - Neurological Exam Neurological exam: Present: altered (Sedated and on ventilator) - Psychiatric Psychiatric exam: Absent: agitated, anxious - Skin Skin exam: Present: dry, warm Internal Medicine - CN: Reslt - Labs CBC & Chem 7: 09/02/17 03:46 09/02/17 03:46 Labs: Short CBC 09/02/17 Range/Units 03:46 WBC 17.8 H (4.3-11.1) K/mcL Hgb 9.4 L (11.5-15.4) g/dL Hct 30.5 L (35.3-44.9) % Plt Count 82 L (140-400) K/mcL BMP 09/02/17 03:46 Sodium 130 L Potassium 3.5 Chloride 103 Carbon Dioxide 21 L BUN 27 H Creatinine 1.02 Glucose 86 Calcium 7.3 L - ABG Interpretation ABG results: ABG ABG pH 7.32 pH Units (7.32-7.45) 09/02/17 00:12 ABG pCO2 43 mmHg (35-45) 09/02/17 00:12 ABG pO2 104 mmHg (85-104) 09/02/17 00:12 ABG O2 Saturation 97 % (95-98) 09/02/17 00:12 PT/INR, D-dimer PT 13.1 Seconds (9.4-12.1) H 08/19/17 12:32 D-Dimer 4056 ng/mLFEU (0-500) H 08/19/17 12:32 - Impressions Impressions Chest X-Ray 09/02/17 00:19 IMPRESSION: Developing left basilar atelectasis or pneumonia. D/ / Guido Gomes MD / Guido Gomes MD Interpreting Provider: Guido Gomes MD Abdomen/Pelvis CT 09/02/17 11:00 IMPRESSION: Diffuse body wall edema, with mild haziness within the mesentery, with a small volume of pelvic ascites. Changes suggest possible third-spacing with anasarca. No loculated appearing fluid collection is seen to suggest abscess. The distal common bile duct is markedly increased in size measuring 15 mm, where is in 2013 this same area measured approximately 8 mm. No distal hyperdense calculus is seen to suggest a definite obstructive stone. Correlate with laboratory evaluation. This could also be assessed with MRCP or ERCP if clinically indicated. D/ / Thierry Naranjo MD / Thierry Naranjo MD Interpreting Provider: Thierry Naranjo MD Chest CT 09/02/17 11:00 IMPRESSION: 1. Very tiny anterior left pneumothorax adjacent to the left chest tube. 2. No significant atelectatic changes as the left lung is expanded. No pleural effusion. 3. Stable total opacification of the right hemithorax. D/ / 09/02/2017 11:47:41 Santos Johnson MD / nevaeh Interpreting Provider: Santos Johnson MD Consult Discharge Plan - Plan Referrals: Senait Wong CARD PROCESSING CLERK [Primary Care Provider] - 08/26/17 2:40 pm Palliative Quality Palliative Quality: Screen for Code Status: Yes, Screen for Goals of Care: Yes, Screen for Pain: Yes, If Pain Regimen Started, Initiate Bowel Regimen: Yes, Screen for Nausea/Vomitting: Yes Code Status: 08/19/17 16:30 Resuscitation Status: Active [RES] Routine Comment: Resuscitation Status: DNR-Comfort Care-Arrest
[2017-09-02] MEDS ORDERED: Clinimix E 5%-15% SOLUTION 2,000 ML with MVI, adult with vitamin K 10 ML IVC SCH (17:00)
[2017-09-02 17:28] LABS: Potassium 4.2 mEq/L (3.5-5.1)
[2017-09-02 22:06] LABS: Albumin 2.1 g/dL (3.5-5.7); Albumin/Globulin Ratio 1.1 (1.1-2.2); Bilirubin,Direct 0.6 mg/dL (0.0-0.2); Bilirubin,Indirect 0.7 mg/dL (0.0-1.2); Bilirubin,Total 1.3 mg/dL (0.3-1.0); Globulin 1.9 g/dL (2.4-3.5)
[2017-09-03] MEDS: Meropenem 1,000 MG in Water for inj. (sterile) 20 ML 10 ML IVP SCH ×2 (00:37→11:22)
[2017-09-03] MEDS: Insulin LISPRO 300 UNITS/3 ML VIAL SQ SCH ×4 (00:39→17:58)
[2017-09-03] MEDS: Amiodarone Premix 360 MG/200 ML BAG IVC SCH ×2 (02:31→14:27)
--- NOTE | 2017-09-03 04:14 | Pulmonology Progress Note ---
<Santos Bailey - Last Filed: 09/03/17 04:24> Date of Encounter: 09/03/17 Time of Encounter: 04:12 Assessment and Plan (1) Acute and chronic respiratory failure Current Visit: Yes Status: Acute In the setting of right middle and lower lobectomy, chronic RUL consolidation/ collapse, non-small cell lung cancer, COPD. Intubated. Continues to fail CPAP, no obvious improvement of respiratory status Sedated: Precedex Analgesic: Fentanyl Consider re-attempting wean to CPAP trial today. Extubate to nasal cannulae pending CPAP trial. Requires increasing pressor support Qualifiers: Respiratory failure complication: hypoxia Qualified Code(s): J96.21 - Acute and chronic respiratory failure with hypoxia (2) HCAP (healthcare-associated pneumonia) Current Visit: Yes Status: Acute Left basilar atelectasis, possible pneumonia Vanc, zosyn discontinued Started Meropenem + Linezolid for possible worsening pneumonia Blood culture 1 (08/19) (-) Blood culture 2 (08/19) (-) Sputum culture (-) (3) Esophageal abnormality Current Visit: Yes Status: Acute Severe esophageal erosions and stricture per GI Patient will require chcf PEG tube however has been unable to tolerate procedure thus far Continued TPN until PEG can be inserted (4) Pleural effusion, left Current Visit: Yes Status: Resolved Stable on CXR. Very mild pneumothorax noted on chest CT s/p thoracic chest tube insertion 08/28 management of chest tube per CT surgery, who plans to leave for 2-3 more days (5) Pericardial effusion Current Visit: Yes Status: Acute Echo 08/26/17: LVEF 60%. mod-lg pericardial effusion with greatest measurement 1 /8cm at LV boarder. No tamponade. Subxiphoid pericardial window 08/27/17 Pericardial fluid: (-) anaerobes, (-) acid fast, (-) bacteria Pericardial window tissue sent for permanent section. Mediastinal drain stable (6) Atrial fibrillation with RVR Current Visit: Yes Status: Chronic Paroxysmal Amiodarone gtt (7) Non-small cell lung cancer Current Visit: Yes Status: Chronic Known hx non-small cell lung cancer, follows Dr. Valadez. S/p R lower lobe lobectomy her eCW chart review, date unknown. Qualifiers: Laterality: left Qualified Code(s): C34.92 - Malignant neoplasm of unspecified part of left bronchus or lung (8) DVT prophylaxis Current Visit: Yes Status: Acute Subjective Principal diagnosis: Pericarial Effusion+Recurrent L pleural effusion Objective PUL Vital signs: Last Vital Signs Temp 98.2 F 09/02/17 20:00 Pulse 90 09/03/17 02:00 Resp 17 09/03/17 03:35 BP 122/60 09/03/17 03:35 Pulse Ox 95 09/03/17 03:35 Ventilator Settings Ventilator Settings: Ventilator Settings, Last 8 Hours Ventilator Mode VC+ Ventilator Mode VC+ Ventilator Mode VC+ Ventilator Mode VC+ Ventilator Mode VC+ Ventilator Mode VC+ Ventilator Mode VC+ Ventilator Mode VC+ Ventilator Mode VC+ Ventilator Mode VC+ Ventilator Tidal Volume 380 Setting Ventilator Tidal Volume 380 Setting Ventilator Tidal Volume 380 Setting Ventilator Tidal Volume 380 Setting Ventilator Tidal Volume 380 Setting Ventilator Tidal Volume 380 Setting Ventilator Tidal Volume 380 Setting Ventilator Tidal Volume 380 Setting Ventilator Tidal Volume 380 Setting Ventilator Tidal Volume 380 Setting Ventilator Respiratory Rate 12 Setting Ventilator Respiratory Rate 12 Setting Ventilator Respiratory Rate 12 Setting Ventilator Respiratory Rate 12 Setting Ventilator Respiratory Rate 12 Setting Ventilator Respiratory Rate 12 Setting Ventilator Respiratory Rate 12 Setting Ventilator Respiratory Rate 12 Setting Ventilator Respiratory Rate 12 Setting Ventilator Respiratory Rate 12 Setting Actual Respiratory Rate 18 Actual Respiratory Rate 13 Actual Respiratory Rate 14 Actual Respiratory Rate 15 Actual Respiratory Rate 19 Actual Respiratory Rate 21 Actual Respiratory Rate 21 Actual Respiratory Rate 21 Actual Respiratory Rate 15 Actual Respiratory Rate 15 Positive End Expiratory 5 Pressure Positive End Expiratory 5 Pressure Positive End Expiratory 5 Pressure Positive End Expiratory 5 Pressure Positive End Expiratory 5 Pressure Positive End Expiratory 5 Pressure Positive End Expiratory 5 Pressure Positive End Expiratory 5 Pressure Positive End Expiratory 5 Pressure Positive End Expiratory 5 Pressure Peak Inspiratory Airway 35 Pressure Peak Inspiratory Airway 24 Pressure Peak Inspiratory Airway 22 Pressure Peak Inspiratory Airway 22 Pressure Peak Inspiratory Airway 23 Pressure Peak Inspiratory Airway 24 Pressure Peak Inspiratory Airway 24 Pressure Peak Inspiratory Airway 24 Pressure Peak Inspiratory Airway 23 Pressure Peak Inspiratory Airway 25 Pressure Results - Laboratory Findings CBC and BMP: 09/02/17 03:46 09/02/17 16:27 ABG ABG pH 7.32 pH Units (7.32-7.45) 09/02/17 00:12 ABG pCO2 43 mmHg (35-45) 09/02/17 00:12 ABG pO2 104 mmHg (85-104) 09/02/17 00:12 ABG O2 Saturation 97 % (95-98) 09/02/17 00:12 PT/INR, D-dimer PT 13.1 Seconds (9.4-12.1) H 08/19/17 12:32 D-Dimer 4056 ng/mLFEU (0-500) H 08/19/17 12:32 Abnormal lab findings: Abnormal lab results WBC 17.8 K/mcL (4.3-11.1) H 09/02/17 03:46 RBC 3.77 M/mcL (3.82-4.97) L 09/02/17 03:46 Hgb 9.4 g/dL (11.5-15.4) L 09/02/17 03:46 Hct 30.5 % (35.3-44.9) L 09/02/17 03:46 MCV 80.9 fL (83.0-100.0) L 09/02/17 03:46 MCH 24.9 pg (28.0-33.3) L 09/02/17 03:46 MCHC 30.8 g/dL (31.6-35.5) L 09/02/17 03:46 RDW 21.9 % (11.5-14.5) H 09/02/17 03:46 Plt Count 82 K/mcL (140-400) L 09/02/17 03:46 Monocytes # 1.6 K/mcL (0.0-1.3) H 08/30/17 04:17 Nucleated RBCs/100 WBC 0.2 /100 WBC (0) H 08/29/17 04:05 Platelet Estimate Increased (Normal) H 08/29/17 04:05 Immature Plt Fraction 10.0 % (1.1-6.1) H 09/02/17 03:46 Polychromasia 1+ (Not Present) A 08/24/17 06:01 Poikilocytosis 1+ (Not Present) A 08/29/17 04:05 Anisocytosis 1+ (Not Present) A 08/29/17 04:05 Microcytosis Present (Not Present) A 08/25/17 04:19 Macrocytosis Present (Not Present) A 08/25/17 04:19 Target Cells 1+ (Not Present) A 08/25/17 04:19 Ovalocytes 1+ (Not Present) A 08/24/17 06:01 [place] Cells 1+ (Not Present) A 08/29/17 04:05 Acanthocytes (Spur) 1+ (Not Present) A 08/24/17 06:01 Schistocytes 1+ (Not Present) A 08/27/17 09:30 PT 13.1 Seconds (9.4-12.1) H 08/19/17 12:32 D-Dimer 4056 ng/mLFEU (0-500) H 08/19/17 12:32 ABG Base Excess -4 mEq/L (-2 to 3) L 09/02/17 00:12 VBG pCO2 53 mmHg (41-51) H 08/19/17 12:50 VBG pO2 63 mmHg (25-50) H 08/19/17 12:50 VBG HCO3 29 mEq/L (21-27) H 08/19/17 12:50 Sodium 130 mEq/L (136-145) L 09/02/17 03:46 Carbon Dioxide 21 mEq/L (23-29) L 09/02/17 03:46 BUN 27 mg/dL (8-23) H 09/02/17 03:46 Est GFR (Non-Af Amer) 54 (> 60) L 09/02/17 03:46 POC Glucose 145 (58-89) H 09/03/17 00:35 Calculated Osmolality 274 (280-300) L 09/02/17 03:46 Calcium 7.3 mg/dL (8.6-10.3) L 09/02/17 03:46 Total Bilirubin 1.3 mg/dL (0.3-1.0) H 09/02/17 16:27 Direct Bilirubin 0.6 mg/dL (0.0-0.2) H 09/02/17 16:27 B-Natriuretic Peptide 640 pg/mL (Less than 100) H 08/20/17 00:32 Serum Total Protein 4.0 g/dL (6.4-8.9) L 09/02/17 16:27 Albumin 2.1 g/dL (3.5-5.7) L 09/02/17 16:27 Globulin 1.9 g/dL (2.4-3.5) L 09/02/17 16:27 Urine Bilirubin Small (Negative) H 08/19/17 13:08 Ur Squamous Epith Cells Moderate per lpf (None-Few) H 08/19/17 13:08 - Microbiology Findings Microbiology Findings: Microbiology, Last 48 Hours 08/27/17 08:20 Anaerobic Culture - Final Pericardial Fluid No anaerobes were recovered. - Clinical Findings Intake & Output: Intake & Output 09/02/17 09/02/17 09/03/17 15:59 23:59 07:59 Intake Total 939 / 939 324 / 324 200 / 200 Output Total 425 / 425 595 / 595 Balance 514 / 514 -271 / -271 200 / 200 - VTE Documentation of Mechanical Device: Intermittent pneumatic compression device Consult Discharge Plan - Plan Referrals: Senait Wong CNP [Primary Care Provider] - 08/26/17 2:40 pm <Azam Lofton - Last Filed: 09/03/17 23:36> Date of Encounter: 09/03/17 Objective PUL Vital signs: Last Vital Signs Temp 97.6 F 09/03/17 16:00 Pulse 92 09/03/17 22:55 Resp 20 09/03/17 22:55 BP 117/53 09/03/17 22:55 Pulse Ox 100 09/03/17 22:55 Ventilator Settings Ventilator Settings: Ventilator Settings, Last 8 Hours Ventilator Mode VC+ Ventilator Mode VC+ Ventilator Mode VC+ Ventilator Mode VC+ Ventilator Mode VC+ Ventilator Mode A/C Ventilator Mode VC+ Ventilator Mode VC+ Ventilator Mode VC+ Ventilator Mode VC+ Ventilator Mode VC+ Ventilator Tidal Volume 380 Setting Ventilator Tidal Volume 380 Setting Ventilator Tidal Volume 380 Setting Ventilator Tidal Volume 380 Setting Ventilator Tidal Volume 380 Setting Ventilator Tidal Volume 380 Setting Ventilator Tidal Volume 380 Setting Ventilator Tidal Volume 380 Setting Ventilator Tidal Volume 380 Setting Ventilator Tidal Volume 380 Setting Ventilator Tidal Volume 380 Setting Ventilator Respiratory Rate 12 Setting Ventilator Respiratory Rate 12 Setting Ventilator Respiratory Rate 12 Setting Ventilator Respiratory Rate 12 Setting Ventilator Respiratory Rate 12 Setting Ventilator Respiratory Rate 12 Setting Ventilator Respiratory Rate 12 Setting Ventilator Respiratory Rate 12 Setting Ventilator Respiratory Rate 12 Setting Ventilator Respiratory Rate 12 Setting Ventilator Respiratory Rate 12 Setting Actual Respiratory Rate 20 Actual Respiratory Rate 30 Actual Respiratory Rate 13 Actual Respiratory Rate 26 Actual Respiratory Rate 20 Actual Respiratory Rate 21 Actual Respiratory Rate 19 Actual Respiratory Rate 15 Actual Respiratory Rate 17 Actual Respiratory Rate 15 Actual Respiratory Rate 17 Positive End Expiratory 5 Pressure Positive End Expiratory 5 Pressure Positive End Expiratory 5 Pressure Positive End Expiratory 5 Pressure Positive End Expiratory 5 Pressure Positive End Expiratory 5 Pressure Positive End Expiratory 5 Pressure Positive End Expiratory 5 Pressure Positive End Expiratory 5 Pressure Positive End Expiratory 5 Pressure Positive End Expiratory 5 Pressure Peak Inspiratory Airway 26 Pressure Peak Inspiratory Airway 34 Pressure Peak Inspiratory Airway 31 Pressure Peak Inspiratory Airway 25 Pressure Peak Inspiratory Airway 32 Pressure Peak Inspiratory Airway 28 Pressure Peak Inspiratory Airway 30 Pressure Peak Inspiratory Airway 30 Pressure Peak Inspiratory Airway 32 Pressure Peak Inspiratory Airway 31 Pressure Peak Inspiratory Airway 33 Pressure Results - Laboratory Findings CBC and BMP: 09/03/17 04:31 09/03/17 04:31 ABG ABG pH 7.32 pH Units (7.32-7.45) 09/02/17 00:12 ABG pCO2 43 mmHg (35-45) 09/02/17 00:12 ABG pO2 104 mmHg (85-104) 09/02/17 00:12 ABG O2 Saturation 97 % (95-98) 09/02/17 00:12 PT/INR, D-dimer PT 13.1 Seconds (9.4-12.1) H 08/19/17 12:32 D-Dimer 4056 ng/mLFEU (0-500) H 08/19/17 12:32 Abnormal lab findings: Abnormal lab results WBC 18.9 K/mcL (4.3-11.1) H 09/03/17 04:31 RBC 3.56 M/mcL (3.82-4.97) L 09/03/17 04:31 Hgb 9.1 g/dL (11.5-15.4) L 09/03/17 04:31 Hct 29.4 % (35.3-44.9) L 09/03/17 04:31 MCV 82.6 fL (83.0-100.0) L 09/03/17 04:31 MCH 25.6 pg (28.0-33.3) L 09/03/17 04:31 MCHC 31.0 g/dL (31.6-35.5) L 09/03/17 04:31 RDW 22.0 % (11.5-14.5) H 09/03/17 04:31 Plt Count 83 K/mcL (140-400) L 09/03/17 04:31 Monocytes # 1.6 K/mcL (0.0-1.3) H 08/30/17 04:17 Nucleated RBCs/100 WBC 0.2 /100 WBC (0) H 08/29/17 04:05 Platelet Estimate Increased (Normal) H 08/29/17 04:05 Immature Plt Fraction 12.4 % (1.1-6.1) H 09/03/17 04:31 Polychromasia 1+ (Not Present) A 08/24/17 06:01 Poikilocytosis 1+ (Not Present) A 08/29/17 04:05 Anisocytosis 1+ (Not Present) A 08/29/17 04:05 Microcytosis Present (Not Present) A 08/25/17 04:19 Macrocytosis Present (Not Present) A 08/25/17 04:19 Target Cells 1+ (Not Present) A 08/25/17 04:19 Ovalocytes 1+ (Not Present) A 08/24/17 06:01 [place] Cells 1+ (Not Present) A 08/29/17 04:05 Acanthocytes (Spur) 1+ (Not Present) A 08/24/17 06:01 Schistocytes 1+ (Not Present) A 08/27/17 09:30 PT 13.1 Seconds (9.4-12.1) H 08/19/17 12:32 D-Dimer 4056 ng/mLFEU (0-500) H 08/19/17 12:32 ABG Base Excess -4 mEq/L (-2 to 3) L 09/02/17 00:12 VBG pCO2 53 mmHg (41-51) H 08/19/17 12:50 VBG pO2 63 mmHg (25-50) H 08/19/17 12:50 VBG HCO3 29 mEq/L (21-27) H 08/19/17 12:50 Sodium 128 mEq/L (136-145) L 09/03/17 04:31 BUN 27 mg/dL (8-23) H 09/03/17 04:31 Est GFR (Non-Af Amer) 57 (> 60) L 09/03/17 04:31 BUN/Creatinine Ratio 28 (6-26) H 09/03/17 04:31 Glucose 160 mg/dL (70-105) H 09/03/17 04:31 POC Glucose 124 (58-89) H 09/03/17 17:57 Calculated Osmolality 275 (280-300) L 09/03/17 04:31 Calcium 7.3 mg/dL (8.6-10.3) L 09/03/17 04:31 Total Bilirubin 1.3 mg/dL (0.3-1.0) H 09/02/17 16:27 Direct Bilirubin 0.6 mg/dL (0.0-0.2) H 09/02/17 16:27 B-Natriuretic Peptide 640 pg/mL (Less than 100) H 08/20/17 00:32 Serum Total Protein 4.0 g/dL (6.4-8.9) L 09/02/17 16:27 Albumin 2.1 g/dL (3.5-5.7) L 09/02/17 16:27 Globulin 1.9 g/dL (2.4-3.5) L 09/02/17 16:27 Urine Bilirubin Small (Negative) H 08/19/17 13:08 Ur Squamous Epith Cells Moderate per lpf (None-Few) H 08/19/17 13:08 - Microbiology Findings Microbiology Findings: Microbiology, Last 48 Hours 09/02/17 00:58 Blood Culture - Preliminary Peripheral Venipuncture No growth. 09/02/17 00:55 Blood Culture - Preliminary Peripheral Venipuncture No growth. - Clinical Findings Intake & Output: Intake & Output 09/03/17 09/03/17 09/03/17 07:59 15:59 23:59 Intake Total 1611 / 1611 691 / 691 640 / 640 Output Total 390 / 390 390 / 390 125 / 125 Balance 1221 / 1221 301 / 301 515 / 515 - Attending Attestation - Attending Attestation I saw and evaluated this patient and my medical decision-making was reviewed with the Resident Physician. I agree with the documented findings, disposition and treatment plan as described except to the extent set forth below. We independently had [id number] contact with the patient Patient seen and examined at bedside Labs, radiology, chart personally reviewed. Management was reviewed during multidisciplinary critical care rounds. Patient still in shock unclassified we recultured and broadened the antibiotic coverage did Ball CT CHEST and Abdomen didnt show any collection that can be drained [employer] MATERIAL:Patient is conscious following commands Pulm:Patient failed SBT cause multifactorial [place] vs fluid overload resctrictive process contributed by pleural effusion now drained to continue broad spectrum antibiotics , not able to diurese . The imaging didnt show any collection of fluid to be drained . To continue lung protective strategy . Cards:Atrial fibrillation with RVR on Amiodarone might contribute hemodynamically stability still on Vasporessors . Patient is 16 liter positive cpuldnt diurese because of vasopressors FEN-GI: Patient has oesophageal stenosis cannot do Oral access to do nutrition will do PICC line for TPN for now then will consult GI for permanent . Difficulty in placement of PICC line due to SVC and brachiocephalic obstruction has difficulty in insertion because of difficult central vein access consulted GI since patient has severe lower esophageal stricture will attempt tomorrow to do a PEG tube explained about the benefits of procedure how important is nutrition in liberation from the ventilator . 09/01 PEG tube insertion because of hemodynamic stability .Because of PICC line is in brachiocephalic vein due to SVC stenois i put in a femoral line for possible TPN till we get GI access 09/02 Postoponed the PEG tube placement will start TPN through the femoral central line for now 09/03 holding off PEG tube because of hemodynamically stability Renal:Labs and UOP reviewed . ID:To continue broad spectrum antibiotics with Linezolid and meropenem for possible worsening pneumonia since with new onset of hemodynamic instability will follow cultures Heme/Onc:Labs reviewed Endo: Glucose Monitored Integ/MSK: Skin Care per routine ICU Nursing Protocol to prevent ulcers. Lines: All lines examined without evidence of infection : Dispo: Remains Critically ill . CODE: Palliative Care Onboard . Code status changed to DNRCCA
[2017-09-03 04:46] LABS: Hematocrit 29.4 % (35.3-44.9); Hemoglobin 9.1 g/dL (11.5-15.4); Immature Platelets 12.4 % (1.1-6.1); Mean Corpuscular Hemoglobin 25.6 pg (28.0-33.3); Mean Corpuscular Volume 82.6 fL (83.0-100.0); Red Blood Count 3.56 M/mcL (3.82-4.97)
[2017-09-03 04:51] LABS: Platelet Count 83 K/mcL (140-400)
[2017-09-03 04:59] LABS: BUN/Creatinine Ratio 28 (6-26); Blood Urea Nitrogen 27 mg/dL (8-23); Calcium 7.3 mg/dL (8.6-10.3); Carbon Dioxide 23 mEq/L (23-29); Chloride 99 mEq/L (98-107); Glucose 160 mg/dL (70-105); Magnesium 1.8 mg/dL (1.6-2.6); Osmolality,Calculated 275 (280-300); Phosphorous 2.9 mg/dL (2.7-4.5); Potassium 4.5 mEq/L (3.5-5.1); Sodium 128 mEq/L (136-145); Triglycerides 148 mg/dL (< 150); eGFR For African Americans > 60 (> 60); eGFR For Non-African Americans 57 (> 60)
--- NOTE | 2017-09-03 07:24 | Cardiothoracic Progress Note ---
Date of Encounter: 09/03/17 Time of Encounter: 07:22 - Assessment and plan (1) Non-small cell lung cancer Current Visit: Yes Status: Chronic We will leave the chest tubes for now. We will continue to monitor the drainage and remove the tubes at the appropriate time. Qualifiers: Laterality: left Qualified Code(s): C34.92 - Malignant neoplasm of unspecified part of left bronchus or lung - Subjective Interval history: The patient is intubated and sedated. She seems to respond appropriately to commands. Vital Signs, Last 4 Hours Temp Pulse Resp BP Pulse Ox 09/03/17 06:30 17 102/50 100 09/03/17 06:00 61 17 102/50 100 09/03/17 05:00 61 19 100/49 95 09/03/17 04:00 98.2 F 61 17 122/60 95 09/03/17 03:35 17 122/60 95 Oxgyen Flow Rate Oxygen Flow Rate (LPM) 4 Clinical Data, last 8 Hours Output, Chest Tube Drainage 10 Amount [Right Anterior Chest # 2] Output, Chest Tube Drainage 10 Amount [Right Anterior Chest # 2] Output, Chest Tube Drainage 10 Amount [Right Anterior Chest # 2] Output, Chest Tube Drainage 10 Amount [Right Anterior Chest # 2] Output, Chest Tube Drainage 100 Amount [Left Upper Anterior Chest #1] Output, Chest Tube Drainage 100 Amount [Left Upper Anterior Chest #1] Output, Chest Tube Drainage 70 Amount [Left Upper Anterior Chest #1] Output, Chest Tube Drainage 70 Amount [Left Upper Anterior Chest #1] Weight 09/01/17 09/02/17 09/03/17 23:59 23:59 23:59 Weight 68.4 kg The left lung is clear to percussion and auscultation. Heart is in a regular rate and rhythm. Neither chest tube has an air leak. The left pleural chest tube has minimal drainage. The pericardial tube is continuing to drain. CT scan of the chest done yesterday revealed a tiny pneumothorax around the chest tube, but no significant fluid collections and a chronic white out of the right lung. - Labs 09/03/17 04:31 09/03/17 04:31 Lab Results, Last 24 hours 09/02/17 09/02/17 09/03/17 03:46 16:27 04:31 WBC Hgb Hct Plt Count Sodium 130 L 128 L Potassium 3.5 4.2 4.5 Chloride 103 99 Carbon Dioxide 21 L 23 BUN 27 H 27 H Creatinine 1.02 0.97 Glucose 86 160 H Calcium 7.3 L 7.3 L Magnesium 1.6 1.8 Total Bilirubin 1.3 H AST 35 ALT 7 Alkaline Phosphatase 72 09/03/17 04:31 WBC 18.9 H Hgb 9.1 L Hct 29.4 L Plt Count 83 L Sodium Potassium Chloride Carbon Dioxide BUN Creatinine Glucose Calcium Magnesium Total Bilirubin AST ALT Alkaline Phosphatase - VTE Documentation of Mechanical Device: Intermittent pneumatic compression device Consult Discharge Plan - Plan Referrals: Senait Wong, MANUFACTURING MECHANIC [Primary Care Provider] - 08/26/17 2:40 pm
[2017-09-03] MEDS: Folic Acid 1 MG TABLET PO SCH (07:37)
[2017-09-03] MEDS: Loratadine 10 MG TABLET PO SCH (07:37)
[2017-09-03] MEDS: Gabapentin 300 MG CAPSULE PO SCH ×2 (07:37→20:38)
[2017-09-03] MEDS: ERLOTINIB HCL 100 MG PO SCH (07:38)
[2017-09-03] MEDS: FentaNYL (PF) 1,000 MCG in 0.9 % Sodium Chloride 80 ML IVC SCH ×2 (07:40→16:37)
--- NOTE | 2017-09-03 07:47 | Electrocardiograph Report ---
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
[2017-09-03] MEDS: Pantoprazole 40 MG VIAL IVP SCH ×2 (07:50→20:50)
[2017-09-03] MEDS: Chlorhexidine Rinse 15 ML MOUTHWASH MM SCH ×2 (07:50→20:50)
--- NOTE | 2017-09-03 08:01 | Palliative Progress Note ---
Date of Encounter: 09/03/17 Time of Encounter: 07:05 - Assessment and plan (1) Acute and chronic respiratory failure Current Visit: Yes Status: Acute Assessment and plan: Failed CPAP trial this morning. She you team continues to try to wean. Qualifiers: Respiratory failure complication: hypoxia Qualified Code(s): J96.21 - Acute and chronic respiratory failure with hypoxia (2) Goals of care, counseling/discussion Current Visit: Yes Status: Acute Assessment and plan: Patient is now DNR CCA after discussion with patient's daughter yesterday. Goals for the patient to try to return home, however she does not wean off the ventilator I think the family would probably opt to not to trach. Patient is being placed tentatively today to assist with chronic malnutrition due to erosive esophagitis. (3) Bacterial lobar pneumonia Current Visit: No Status: Acute Assessment and plan: On antibiotics plan per hospitalist team blood cultures thus far negative blood cell count continues to be elevated however the patient is afebrile (4) Dysphagia Current Visit: No Status: Acute Assessment and plan: Poor by mouth intake due to radiation erosive esophagitis plan is for GI to place a PEG tube per ICU attending they will try to do that today if at all possible. Qualifiers: Dysphagia type: unspecified Qualified Code(s): R13.10 - Dysphagia, unspecified (5) Non-small cell lung cancer Current Visit: Yes Status: Chronic Assessment and plan: Cancer was stable in March last year continue to watch Qualifiers: Laterality: left Qualified Code(s): C34.92 - Malignant neoplasm of unspecified part of left bronchus or lung (6) Pericardial effusion Current Visit: Yes Status: Acute Assessment and plan: Drainage still noted from the pericardial chest tube, thoracic is following. 2 plan is for chest tubes to come out tomorrow depending on situation. (7) Pneumonia Current Visit: No Status: Acute Assessment and plan: On antibiotics, plan per intensive care team of note blood cultures are negative thus far, however the white blood cell count continues to be elevated. Patient is afebrile Qualifiers: Pneumonia type: due to unspecified organism Laterality: unspecified laterality Lung location: unspecified part of lung Qualified Code(s): J18.9 - Pneumonia, unspecified organism - Time Spent With Patient Total time spent is greater than 50% in coordination of care (as documented) at patient's floor/unit and/or counseling patient: - Subjective Interval history: Patient failed CPAP trial this morning. Over she is down to just one pressor. Rest planning on leaving the chest tubes in for at least another day tomorrow for chest tube removal. - Constitutional Vitals: Abnormal lab results WBC 18.9 K/mcL (4.3-11.1) H 09/03/17 04:31 RBC 3.56 M/mcL (3.82-4.97) L 09/03/17 04:31 Hgb 9.1 g/dL (11.5-15.4) L 09/03/17 04:31 Hct 29.4 % (35.3-44.9) L 09/03/17 04:31 MCV 82.6 fL (83.0-100.0) L 09/03/17 04:31 MCH 25.6 pg (28.0-33.3) L 09/03/17 04:31 MCHC 31.0 g/dL (31.6-35.5) L 09/03/17 04:31 RDW 22.0 % (11.5-14.5) H 09/03/17 04:31 Plt Count 83 K/mcL (140-400) L 09/03/17 04:31 Monocytes # 1.6 K/mcL (0.0-1.3) H 08/30/17 04:17 Nucleated RBCs/100 WBC 0.2 /100 WBC (0) H 08/29/17 04:05 Platelet Estimate Increased (Normal) H 08/29/17 04:05 Immature Plt Fraction 12.4 % (1.1-6.1) H 09/03/17 04:31 Polychromasia 1+ (Not Present) A 08/24/17 06:01 Poikilocytosis 1+ (Not Present) A 08/29/17 04:05 Anisocytosis 1+ (Not Present) A 08/29/17 04:05 Microcytosis Present (Not Present) A 08/25/17 04:19 Macrocytosis Present (Not Present) A 08/25/17 04:19 Target Cells 1+ (Not Present) A 08/25/17 04:19 Ovalocytes 1+ (Not Present) A 08/24/17 06:01 [place] Cells 1+ (Not Present) A 08/29/17 04:05 Acanthocytes (Spur) 1+ (Not Present) A 08/24/17 06:01 Schistocytes 1+ (Not Present) A 08/27/17 09:30 PT 13.1 Seconds (9.4-12.1) H 08/19/17 12:32 D-Dimer 4056 ng/mLFEU (0-500) H 08/19/17 12:32 ABG Base Excess -4 mEq/L (-2 to 3) L 09/02/17 00:12 VBG pCO2 53 mmHg (41-51) H 08/19/17 12:50 VBG pO2 63 mmHg (25-50) H 08/19/17 12:50 VBG HCO3 29 mEq/L (21-27) H 08/19/17 12:50 Sodium 128 mEq/L (136-145) L 09/03/17 04:31 BUN 27 mg/dL (8-23) H 09/03/17 04:31 Est GFR (Non-Af Amer) 57 (> 60) L 09/03/17 04:31 BUN/Creatinine Ratio 28 (6-26) H 09/03/17 04:31 Glucose 160 mg/dL (70-105) H 09/03/17 04:31 POC Glucose 126 (58-89) H 09/03/17 04:50 Calculated Osmolality 275 (280-300) L 09/03/17 04:31 Calcium 7.3 mg/dL (8.6-10.3) L 09/03/17 04:31 Total Bilirubin 1.3 mg/dL (0.3-1.0) H 09/02/17 16:27 Direct Bilirubin 0.6 mg/dL (0.0-0.2) H 09/02/17 16:27 B-Natriuretic Peptide 640 pg/mL (Less than 100) H 08/20/17 00:32 Serum Total Protein 4.0 g/dL (6.4-8.9) L 09/02/17 16:27 Albumin 2.1 g/dL (3.5-5.7) L 09/02/17 16:27 Globulin 1.9 g/dL (2.4-3.5) L 09/02/17 16:27 Urine Bilirubin Small (Negative) H 08/19/17 13:08 Ur Squamous Epith Cells Moderate per lpf (None-Few) H 08/19/17 13:08 General appearance: Present: no acute distress - Head Head exam: Present: atraumatic, normal inspection - Eye Eye exam: Present: normal appearance - ENT ENT exam: Present: mucous membranes moist (The tracheal tube is in place on ventilator) - Respiratory Respiratory exam: Present: accessory muscle use (Chest tubes on the left side), decreased breath sounds - Cardiovascular Cardiovascular exam: Present: RRR - GI/Abdominal GI/Abdominal exam: Present: hypoactive bowel sounds, soft. Absent: tenderness - Extremities Exam Extremities exam: Absent: tenderness - Neurological Exam Neurological exam: Present: altered (Sedated on vent but able to answer questions) - Psychiatric Psychiatric exam: Absent: agitated, anxious - Skin Skin exam: Present: dry, warm Palliative Quality Palliative Quality: Screen for Code Status: Yes, Screen for Goals of Care: Yes, Screen for Pain: Yes, If Pain Regimen Started, Initiate Bowel Regimen: Yes, Screen for Nausea/Vomitting: Yes Code Status: 08/19/17 16:30 Resuscitation Status: Active [RES] Routine Comment: Resuscitation Status: DNR-Comfort Care-Arrest - Labs CBC & Chem 7: 09/03/17 04:31 09/03/17 04:31 Labs: Laboratory Results - last 24 hr 09/02/17 09/02/17 09/02/17 03:46 11:55 11:57 WBC RBC Hgb Hct MCV MCH MCHC RDW Plt Count MPV Immature Plt Fraction Sodium 130 L Potassium 3.5 Chloride 103 Carbon Dioxide 21 L BUN 27 H Creatinine 1.02 Est GFR ( Amer) > 60 Est GFR (Non-Af Amer) 54 L BUN/Creatinine Ratio 26 Glucose 86 POC Glucose 59 93 H Calculated Osmolality 274 L Calcium 7.3 L Phosphorus 3.1 Magnesium 1.6 Total Bilirubin Direct Bilirubin Indirect Bilirubin AST ALT Alkaline Phosphatase Serum Total Protein Albumin Globulin Albumin/Globulin Ratio Triglycerides 09/02/17 09/02/17 09/03/17 16:27 17:46 00:35 WBC RBC Hgb Hct MCV MCH MCHC RDW Plt Count MPV Immature Plt Fraction Sodium Potassium 4.2 Chloride Carbon Dioxide BUN Creatinine Est GFR ( Amer) Est GFR (Non-Af Amer) BUN/Creatinine Ratio Glucose POC Glucose 155 H 145 H Calculated Osmolality Calcium Phosphorus Magnesium Total Bilirubin 1.3 H Direct Bilirubin 0.6 H Indirect Bilirubin 0.7 AST 35 ALT 7 Alkaline Phosphatase 72 Serum Total Protein 4.0 L Albumin 2.1 L Globulin 1.9 L Albumin/Globulin Ratio 1.1 Triglycerides 09/03/17 09/03/17 09/03/17 04:31 04:31 04:50 WBC 18.9 H RBC 3.56 L Hgb 9.1 L Hct 29.4 L MCV 82.6 L MCH 25.6 L MCHC 31.0 L RDW 22.0 H Plt Count 83 L MPV TNP Immature Plt Fraction 12.4 H Sodium 128 L Potassium 4.5 Chloride 99 Carbon Dioxide 23 BUN 27 H Creatinine 0.97 Est GFR ( Amer) > 60 Est GFR (Non-Af Amer) 57 L BUN/Creatinine Ratio 28 H Glucose 160 H POC Glucose 126 H Calculated Osmolality 275 L Calcium 7.3 L Phosphorus 2.9 Magnesium 1.8 Total Bilirubin Direct Bilirubin Indirect Bilirubin AST ALT Alkaline Phosphatase Serum Total Protein Albumin Globulin Albumin/Globulin Ratio Triglycerides 148 - Impressions Impressions Abdomen/Pelvis CT 09/02/17 11:00 IMPRESSION: Diffuse body wall edema, with mild haziness within the mesentery, with a small volume of pelvic ascites. Changes suggest possible third-spacing with anasarca. No loculated appearing fluid collection is seen to suggest abscess. The distal common bile duct is markedly increased in size measuring 15 mm, where is in 2014 this same area measured approximately 8 mm. No distal hyperdense calculus is seen to suggest a definite obstructive stone. Correlate with laboratory evaluation. This could also be assessed with MRCP or ERCP if clinically indicated. D/ / Thierry Naranjo MD / Thierry Naranjo MD Interpreting Provider: Thierry Naranjo MD Chest CT 09/02/17 11:00 IMPRESSION: 1. Very tiny anterior left pneumothorax adjacent to the left chest tube. 2. No significant atelectatic changes as the left lung is expanded. No pleural effusion. 3. Stable total opacification of the right hemithorax. D/ / 09/02/2017 11:47:41 Santos Johnson MD / nevaeh Interpreting Provider: Santos Johnson MD Liver Ultrasound 09/02/17 21:36 IMPRESSION: Common duct dilation without intrahepatic biliary ductal dilation or ultrasonographic evidence for choledocholithiasis. D/ / Guido Gomes MD / Guido Gomes MD Interpreting Provider: Guido Gomes MD - ABG Interpretation ABG results: ABG ABG pH 7.32 pH Units (7.32-7.45) 09/02/17 00:12 ABG pCO2 43 mmHg (35-45) 09/02/17 00:12 ABG pO2 104 mmHg (85-104) 09/02/17 00:12 ABG O2 Saturation 97 % (95-98) 09/02/17 00:12 PT/INR, D-dimer PT 13.1 Seconds (9.4-12.1) H 08/19/17 12:32 D-Dimer 4056 ng/mLFEU (0-500) H 08/19/17 12:32 Consult Discharge Plan - Plan Referrals: Senait Wong, [employer] [Primary Care Provider] - 08/26/17 2:40 pm
[2017-09-03] MEDS: Phenylephrine 50 MG in D5% in Water 250 ML IVC SCH (11:26)
[2017-09-03] MEDS: Norepinephrine 4 MG in D5% in Water 250 ML IVC SCH (12:34)
[2017-09-03] MEDS ORDERED: Clinimix E 5%-20% SOLUTION 2,000 ML with MVI, adult with vitamin K 10 ML IVC SCH (17:00)
[2017-09-04] MEDS: Meropenem 1,000 MG in Water for inj. (sterile) 20 ML 10 ML IVP SCH ×2 (00:16→12:40)
[2017-09-04] MEDS: Insulin LISPRO 300 UNITS/3 ML VIAL SQ SCH ×4 (00:23→18:24)
[2017-09-04] MEDS: Norepinephrine 4 MG in D5% in Water 250 ML IVC SCH (02:05)
[2017-09-04] MEDS: Amiodarone Premix 360 MG/200 ML BAG IVC SCH ×2 (02:52→17:40)
[2017-09-04 03:46] LABS: Basophils % 0.2 %; Nucleated Red Blood Cells 0.1 /100 WBC (0)
[2017-09-04 03:48] LABS: Basophils # 0.1 K/mcL (0.0-0.2); Eosinophils # 0.1 K/mcL (0.0-0.6); Eosinophils % 0.4 %; Hematocrit 29.6 % (35.3-44.9); Hemoglobin 9.5 g/dL (11.5-15.4); Immature Granulocytes % 0.8 % (0-4); Immature Platelets 10.1 % (1.1-6.1); Lymphocytes % 5.1 %; Mean Corpuscular HGB Conc 32.1 g/dL (31.6-35.5); Mean Corpuscular Hemoglobin 25.5 pg (28.0-33.3); Mean Corpuscular Volume 79.4 fL (83.0-100.0); Monocytes # 1.8 K/mcL (0.0-1.3); Monocytes % 7.2 %; Neutrophils # 21.1 K/mcL (1.6-8.9); Red Blood Count 3.73 M/mcL (3.82-4.97); Red Cell Distribution Width 21.6 % (11.5-14.5); Segmented Neutrophils % 86.3 %
[2017-09-04 04:07] LABS: BUN/Creatinine Ratio 42 (6-26); Blood Urea Nitrogen 27 mg/dL (8-23); Calcium 7.2 mg/dL (8.6-10.3); Carbon Dioxide 21 mEq/L (23-29); Chloride 99 mEq/L (98-107); Glucose 130 mg/dL (70-105); Magnesium 1.7 mg/dL (1.6-2.6); Osmolality,Calculated 265 (280-300); Phosphorous 2.4 mg/dL (2.7-4.5); Potassium 4.2 mEq/L (3.5-5.1); Sodium 124 mEq/L (136-145); eGFR For African Americans > 60 (> 60); eGFR For Non-African Americans > 60 (> 60)
[2017-09-04 04:41] LABS: Lymphocytes # 1.2 K/mcL (0.6-4.6); Platelet Count 95 K/mcL (140-400)
[2017-09-04 04:42] LABS: Platelet Estimate Decreased (Normal)
[2017-09-04 04:43] LABS: Anisocytosis 1+ (Not Present); Poikilocytosis 1+ (Not Present)
[2017-09-04] MEDS: FentaNYL (PF) 1,000 MCG in 0.9 % Sodium Chloride 80 ML IVC SCH ×3 (04:50→22:07)
--- NOTE | 2017-09-04 08:37 | Cardiothoracic Progress Note ---
Date of Encounter: 09/04/17 Time of Encounter: 08:35 - Assessment and plan (1) Non-small cell lung cancer Current Visit: Yes Status: Chronic The patient has been seen by palliative therapy. Prognosis is quite poor and guarded. Hopefully, I can remove the chest tubes tomorrow. Qualifiers: Laterality: left Qualified Code(s): C34.92 - Malignant neoplasm of unspecified part of left bronchus or lung - Subjective Interval history: The patient is intubated and unresponsive. Vital Signs, Last 4 Hours Temp Pulse Resp BP Pulse Ox 09/04/17 07:00 96.5 F L 09/04/17 06:23 93 15 113/51 100 09/04/17 05:25 15 105/51 98 09/04/17 04:59 95 14 113/52 100 Oxgyen Flow Rate Oxygen Flow Rate (LPM) 30 Clinical Data, last 8 Hours Output, Chest Tube Drainage 20 Amount [Right Anterior Chest # 2] Output, Chest Tube Drainage 30 Amount [Right Anterior Chest # 2] Output, Chest Tube Drainage 100 Amount [Left Upper Anterior Chest #1] Output, Chest Tube Drainage 110 Amount [Left Upper Anterior Chest #1] Weight 09/02/17 09/03/17 09/04/17 23:59 23:59 23:59 Weight 75.931 kg The left lung is clear to percussion and auscultation. Heart is in a regular rate and rhythm. Chest tube drainage is decreasing. - Labs 09/04/17 03:37 09/04/17 03:37 Lab Results, Last 24 hours 09/04/17 09/04/17 03:37 03:37 WBC 24.4 H Hgb 9.5 L Hct 29.6 L Plt Count 95 L Sodium 124 L Potassium 4.2 Chloride 99 Carbon Dioxide 21 L BUN 27 H Creatinine 0.64 Glucose 130 H Calcium 7.2 L Magnesium 1.7 - VTE Documentation of Mechanical Device: Intermittent pneumatic compression device Consult Discharge Plan - Plan Referrals: Senait Wong CNP [Primary Care Provider] - 08/26/17 2:40 pm
[2017-09-04] MEDS: Loratadine 10 MG TABLET PO SCH (09:05)
[2017-09-04] MEDS: Phenylephrine 50 MG in D5% in Water 250 ML IVC SCH ×2 (09:05→18:25)
[2017-09-04] MEDS: ERLOTINIB HCL 100 MG PO SCH (09:06)
[2017-09-04] MEDS: Folic Acid 1 MG TABLET PO SCH (09:06)
[2017-09-04] MEDS: Gabapentin 300 MG CAPSULE PO SCH ×2 (09:06→19:48)
[2017-09-04] MEDS: Pantoprazole 40 MG VIAL IVP SCH ×2 (09:11→20:19)
[2017-09-04] MEDS: Chlorhexidine Rinse 15 ML MOUTHWASH MM SCH ×2 (09:11→20:20)
--- NOTE | 2017-09-04 10:45 | Palliative Progress Note ---
Date of Encounter: 09/04/17 Time of Encounter: 10:20 - Assessment and plan (1) Goals of care, counseling/discussion Current Visit: No Status: Acute Assessment and plan: Patient remains intubated with chest tubes in place. CPAP trial held today as patient is still receiving vasopressor support. TPN infusing. Prognosis is poor as this is day 8 of intubation. Code status in DNRCC - A. (2) Acute and chronic respiratory failure Current Visit: Yes Status: Acute Assessment and plan: Pulmonology following Qualifiers: Respiratory failure complication: hypoxia Qualified Code(s): J96.21 - Acute and chronic respiratory failure with hypoxia (3) HCAP (healthcare-associated pneumonia) Current Visit: Yes Status: Acute (4) Pericardial effusion Current Visit: Yes Status: Acute Assessment and plan: Cardio Thoracic following (5) Non-small cell lung cancer Current Visit: Yes Status: Chronic Qualifiers: Laterality: left Qualified Code(s): C34.92 - Malignant neoplasm of unspecified part of left bronchus or lung - Time Spent With Patient Total time spent is greater than 50% in coordination of care (as documented) at patient's floor/unit and/or counseling patient: 25 - 35 minutes - Subjective Interval history: Interval history: Admitted 08/19/17 for onset of several days of worsening shortness of breath and dyspnea with exertion. She has a past medical history of non-small cell lung carcinoma, s/p right lobectomy, leukemia, afib. ED CTA showed large L-sided pleural effusion. 1L of pleural fluid was removed by IR. Subsequent CXRs showed minimal pleural effusion through 08/24. Echo performed showed moderate-large pericardial effusion w/o evidence of tamponade in addition to large recurrent L-sided pleural effusion. Subxiphoid pericardial window + L chest tube insertion performed by CT surgery 08/27. Patient remains intubated and mechanically ventilated. Cardio Thoracic hoping to DC chest tube 09/05/17. - Constitutional Vitals: Abnormal lab results WBC 24.4 K/mcL (4.3-11.1) H 09/04/17 03:37 RBC 3.73 M/mcL (3.82-4.97) L 09/04/17 03:37 Hgb 9.5 g/dL (11.5-15.4) L 09/04/17 03:37 Hct 29.6 % (35.3-44.9) L 09/04/17 03:37 MCV 79.4 fL (83.0-100.0) L 09/04/17 03:37 MCH 25.5 pg (28.0-33.3) L 09/04/17 03:37 RDW 21.6 % (11.5-14.5) H 09/04/17 03:37 Plt Count 95 K/mcL (140-400) L 09/04/17 03:37 Neutrophils # 21.1 K/mcL (1.6-8.9) H 09/04/17 03:37 Monocytes # 1.8 K/mcL (0.0-1.3) H 09/04/17 03:37 Nucleated RBCs/100 WBC 0.1 /100 WBC (0) H 09/04/17 03:37 Platelet Estimate Decreased (Normal) L 09/04/17 03:37 Immature Plt Fraction 10.1 % (1.1-6.1) H 09/04/17 03:37 Polychromasia 1+ (Not Present) A 08/24/17 06:01 Poikilocytosis 1+ (Not Present) A 09/04/17 03:37 Anisocytosis 1+ (Not Present) A 09/04/17 03:37 Microcytosis Present (Not Present) A 08/25/17 04:19 Macrocytosis Present (Not Present) A 08/25/17 04:19 Target Cells 1+ (Not Present) A 08/25/17 04:19 Ovalocytes 1+ (Not Present) A 08/24/17 06:01 [place] Cells 1+ (Not Present) A 08/29/17 04:05 Acanthocytes (Spur) 1+ (Not Present) A 08/24/17 06:01 Schistocytes 1+ (Not Present) A 08/27/17 09:30 PT 13.1 Seconds (9.4-12.1) H 08/19/17 12:32 D-Dimer 4056 ng/mLFEU (0-500) H 08/19/17 12:32 ABG Base Excess -4 mEq/L (-2 to 3) L 09/02/17 00:12 VBG pCO2 53 mmHg (41-51) H 08/19/17 12:50 VBG pO2 63 mmHg (25-50) H 08/19/17 12:50 VBG HCO3 29 mEq/L (21-27) H 08/19/17 12:50 Sodium 124 mEq/L (136-145) L 09/04/17 03:37 Carbon Dioxide 21 mEq/L (23-29) L 09/04/17 03:37 BUN 27 mg/dL (8-23) H 09/04/17 03:37 BUN/Creatinine Ratio 42 (6-26) H 09/04/17 03:37 Glucose 130 mg/dL (70-105) H 09/04/17 03:37 POC Glucose 126 (58-89) H 09/04/17 04:58 Calculated Osmolality 265 (280-300) L 09/04/17 03:37 Calcium 7.2 mg/dL (8.6-10.3) L 09/04/17 03:37 Phosphorus 2.4 mg/dL (2.7-4.5) L 09/04/17 03:37 Total Bilirubin 1.3 mg/dL (0.3-1.0) H 09/02/17 16:27 Direct Bilirubin 0.6 mg/dL (0.0-0.2) H 09/02/17 16:27 B-Natriuretic Peptide 640 pg/mL (Less than 100) H 08/20/17 00:32 Serum Total Protein 4.0 g/dL (6.4-8.9) L 09/02/17 16:27 Albumin 2.1 g/dL (3.5-5.7) L 09/02/17 16:27 Globulin 1.9 g/dL (2.4-3.5) L 09/02/17 16:27 Urine Bilirubin Small (Negative) H 08/19/17 13:08 Ur Squamous Epith Cells Moderate per lpf (None-Few) H 08/19/17 13:08 - Head Head exam: Present: atraumatic, normal inspection, normocephalic - Eye Eye exam: Present: PERRL - ENT ENT exam: Present: mucous membranes moist - Respiratory Respiratory exam: Present: decreased breath sounds Additional comments: Chest tubes intact - Expanded Respiratory Exam Location: decreased breath sounds: Left, Lower, Right, Upper - Cardiovascular Cardiovascular exam: Present: irregular rhythm, +S1, +S2 - GI/Abdominal GI/Abdominal exam: Present: soft - Extremities Exam Extremities exam: Present: pedal edema - Neurological Exam Neurological exam: Present: alert - Psychiatric Psychiatric exam: Present: flat affect - Skin Skin exam: Present: pallor, warm Palliative Quality Palliative Quality: Screen for Code Status: Yes, Screen for Goals of Care: Yes, Screen for Pain: Yes, If Pain Regimen Started, Initiate Bowel Regimen: Yes, Screen for Nausea/Vomitting: Yes Code Status: 08/19/17 16:30 Resuscitation Status: Active [RES] Routine Comment: Resuscitation Status: DNR-Comfort Care-Arrest - Labs CBC & Chem 7: 09/04/17 03:37 09/04/17 03:37 Labs: Laboratory Results - last 24 hr 09/03/17 09/03/17 09/04/17 11:21 17:57 00:22 WBC RBC Hgb Hct MCV MCH MCHC RDW Plt Count MPV Immature Gran % Seg Neutrophils % Lymphocytes % Monocytes % Eosinophils % Basophils % Neutrophils # Lymphocytes # Monocytes # Eosinophils # Basophils # Nucleated RBCs/100 WBC Platelet Estimate Immature Plt Fraction Poikilocytosis Anisocytosis Sodium Potassium Chloride Carbon Dioxide BUN Creatinine Est GFR ( Amer) Est GFR (Non-Af Amer) BUN/Creatinine Ratio Glucose POC Glucose 134 H 124 H 119 H Calculated Osmolality Calcium Phosphorus Magnesium 09/04/17 09/04/17 09/04/17 03:37 03:37 04:58 WBC 24.4 H RBC 3.73 L Hgb 9.5 L Hct 29.6 L MCV 79.4 L MCH 25.5 L MCHC 32.1 RDW 21.6 H Plt Count 95 L MPV TNP Immature Gran % 0.8 Seg Neutrophils % 86.3 Lymphocytes % 5.1 Monocytes % 7.2 Eosinophils % 0.4 Basophils % 0.2 Neutrophils # 21.1 H Lymphocytes # 1.2 Monocytes # 1.8 H Eosinophils # 0.1 Basophils # 0.1 Nucleated RBCs/100 WBC 0.1 H Platelet Estimate Decreased L Immature Plt Fraction 10.1 H Poikilocytosis 1+ A Anisocytosis 1+ A Sodium 124 L Potassium 4.2 Chloride 99 Carbon Dioxide 21 L BUN 27 H Creatinine 0.64 Est GFR ( Amer) > 60 Est GFR (Non-Af Amer) > 60 BUN/Creatinine Ratio 42 H Glucose 130 H POC Glucose 126 H Calculated Osmolality 265 L Calcium 7.2 L Phosphorus 2.4 L Magnesium 1.7 - ABG Interpretation ABG results: ABG ABG pH 7.32 pH Units (7.32-7.45) 09/02/17 00:12 ABG pCO2 43 mmHg (35-45) 09/02/17 00:12 ABG pO2 104 mmHg (85-104) 09/02/17 00:12 ABG O2 Saturation 97 % (95-98) 09/02/17 00:12 PT/INR, D-dimer PT 13.1 Seconds (9.4-12.1) H 08/19/17 12:32 D-Dimer 4056 ng/mLFEU (0-500) H 08/19/17 12:32 Consult Discharge Plan - Plan Referrals: Senait Wong, ARACELI [Primary Care Provider] - 08/26/17 2:40 pm
--- NOTE | 2017-09-04 15:17 | Pulmonology Progress Note ---
<Milton Baltazar - Last Filed: 09/04/17 18:57> Date of Encounter: 09/04/17 Time of Encounter: 08:45 Assessment and Plan (1) Acute and chronic respiratory failure Current Visit: Yes Status: Acute PMH: Intubated, sedated on precedex/fentanyl, on a/c vent. Continuing pressor support: phenylephrine and levophed Qualifiers: Respiratory failure complication: hypoxia Qualified Code(s): J96.21 - Acute and chronic respiratory failure with hypoxia (2) HCAP (healthcare-associated pneumonia) Current Visit: Yes Status: Acute Currently on Vanc/zosyn. (3) Pleural effusion on left Current Visit: Yes Status: Acute S/p chest tube L, 08/27/17. (4) Pericardial effusion Current Visit: Yes Status: Acute S/p subxiphoid pericardial window and left chest tube intertion 08/27/[address] surgery. (5) Atrial fibrillation with RVR Current Visit: Yes Status: Chronic Amiodarone running at 16mg/hr. Currently converted, but BPs down. (6) Esophagitis, erosive Current Visit: Yes Status: Acute Per GI EGD 07/28/17 - severe erosive ulcerative esophagitis. GI plans to proceed with PEG tube procedure when patient pressures improve. (7) Non-small cell lung cancer Current Visit: Yes Status: Chronic Known hx non-small cell lung cancer, follows Dr. Valadez. S/p R lower lobe lobectomy her eCW chart review, date unknown. Qualifiers: Laterality: left Qualified Code(s): C34.92 - Malignant neoplasm of unspecified part of left bronchus or lung Subjective Principal diagnosis: Pericarial Effusion+Recurrent L pleural effusion Interval history: Interval history: Admitted 08/19/17 for onset of several days of worsening shortness of breath and dyspnea with exertion. She has a past medical history of non-small cell lung carcinoma, s/p right lobectomy, leukemia, afib. ED CTA showed large L-sided pleural effusion. 1L of pleural fluid was removed by IR. Subsequent CXRs showed minimal pleural effusion through 08/24. Echo performed showed moderate-large pericardial effusion w/o evidence of tamponade in addition to large recurrent L-sided pleural effusion. Subxiphoid pericardial window + L chest tube insertion performed by CT surgery 08/27. Patient intubated and sedated. Patient continues need for pressors, no CPAP weaning at this time. LUE swelling, will do Doppler. Objective PUL Vital signs: Last Vital Signs Temp 97.2 F L 09/04/17 12:00 Pulse 92 09/04/17 14:00 Resp 16 09/04/17 14:00 BP 102/53 09/04/17 14:00 Pulse Ox 98 09/04/17 14:00 General appearance: other (intubated and sedated) Eyes: nonicteric Neck: supple Auscultation: bilateral: diminished breath sounds Cardiovascular: irregular rhythm Gastrointestinal: soft, non-distended Extremities: other (LUE swelling) Ventilator Settings Ventilator Settings: Ventilator Settings, Last 8 Hours Ventilator Mode A/C Ventilator Mode A/C Ventilator Mode A/C Ventilator Mode A/C Ventilator Mode A/C Ventilator Mode A/C Ventilator Mode A/C Ventilator Mode A/C Ventilator Mode A/C Ventilator Mode A/C Ventilator Tidal Volume 380 Setting Ventilator Tidal Volume 380 Setting Ventilator Tidal Volume 403 Setting Ventilator Tidal Volume 403 Setting Ventilator Tidal Volume 380 Setting Ventilator Tidal Volume 380 Setting Ventilator Tidal Volume 380 Setting Ventilator Tidal Volume 380 Setting Ventilator Tidal Volume 380 Setting Ventilator Tidal Volume 380 Setting Ventilator Respiratory Rate 12 Setting Ventilator Respiratory Rate 12 Setting Ventilator Respiratory Rate 12 Setting Ventilator Respiratory Rate 12 Setting Ventilator Respiratory Rate 12 Setting Ventilator Respiratory Rate 12 Setting Ventilator Respiratory Rate 12 Setting Ventilator Respiratory Rate 12 Setting Ventilator Respiratory Rate 12 Setting Ventilator Respiratory Rate 12 Setting Ventilator Respiratory Rate 12 Setting Actual Respiratory Rate 16 Actual Respiratory Rate 13 Actual Respiratory Rate 12 Actual Respiratory Rate 18 Actual Respiratory Rate 20 Actual Respiratory Rate 18 Actual Respiratory Rate 16 Actual Respiratory Rate 19 Actual Respiratory Rate 18 Actual Respiratory Rate 14 Actual Respiratory Rate 15 Positive End Expiratory 5 Pressure Positive End Expiratory 5 Pressure Positive End Expiratory 5 Pressure Positive End Expiratory 5 Pressure Positive End Expiratory 5 Pressure Positive End Expiratory 5 Pressure Positive End Expiratory 5 Pressure Positive End Expiratory 5 Pressure Positive End Expiratory 5 Pressure Positive End Expiratory 5 Pressure Positive End Expiratory 5 Pressure Peak Inspiratory Airway 24 Pressure Peak Inspiratory Airway 24 Pressure Peak Inspiratory Airway 25 Pressure Peak Inspiratory Airway 23 Pressure Peak Inspiratory Airway 25 Pressure Peak Inspiratory Airway 24 Pressure Peak Inspiratory Airway 26 Pressure Peak Inspiratory Airway 25 Pressure Peak Inspiratory Airway 27 Pressure Peak Inspiratory Airway 32 Pressure Peak Inspiratory Airway 26 Pressure Results - Laboratory Findings CBC and BMP: 09/04/17 03:37 09/04/17 03:37 ABG ABG pH 7.32 pH Units (7.32-7.45) 09/02/17 00:12 ABG pCO2 43 mmHg (35-45) 09/02/17 00:12 ABG pO2 104 mmHg (85-104) 09/02/17 00:12 ABG O2 Saturation 97 % (95-98) 09/02/17 00:12 PT/INR, D-dimer PT 13.1 Seconds (9.4-12.1) H 08/19/17 12:32 D-Dimer 4056 ng/mLFEU (0-500) H 08/19/17 12:32 Abnormal lab findings: Abnormal lab results WBC 24.4 K/mcL (4.3-11.1) H 09/04/17 03:37 RBC 3.73 M/mcL (3.82-4.97) L 09/04/17 03:37 Hgb 9.5 g/dL (11.5-15.4) L 09/04/17 03:37 Hct 29.6 % (35.3-44.9) L 09/04/17 03:37 MCV 79.4 fL (83.0-100.0) L 09/04/17 03:37 MCH 25.5 pg (28.0-33.3) L 09/04/17 03:37 RDW 21.6 % (11.5-14.5) H 09/04/17 03:37 Plt Count 95 K/mcL (140-400) L 09/04/17 03:37 Neutrophils # 21.1 K/mcL (1.6-8.9) H 09/04/17 03:37 Monocytes # 1.8 K/mcL (0.0-1.3) H 09/04/17 03:37 Nucleated RBCs/100 WBC 0.1 /100 WBC (0) H 09/04/17 03:37 Platelet Estimate Decreased (Normal) L 09/04/17 03:37 Immature Plt Fraction 10.1 % (1.1-6.1) H 09/04/17 03:37 Polychromasia 1+ (Not Present) A 08/24/17 06:01 Poikilocytosis 1+ (Not Present) A 09/04/17 03:37 Anisocytosis 1+ (Not Present) A 09/04/17 03:37 Microcytosis Present (Not Present) A 08/25/17 04:19 Macrocytosis Present (Not Present) A 08/25/17 04:19 Target Cells 1+ (Not Present) A 08/25/17 04:19 Ovalocytes 1+ (Not Present) A 08/24/17 06:01 [place] Cells 1+ (Not Present) A 08/29/17 04:05 Acanthocytes (Spur) 1+ (Not Present) A 08/24/17 06:01 Schistocytes 1+ (Not Present) A 08/27/17 09:30 PT 13.1 Seconds (9.4-12.1) H 08/19/17 12:32 D-Dimer 4056 ng/mLFEU (0-500) H 08/19/17 12:32 ABG Base Excess -4 mEq/L (-2 to 3) L 09/02/17 00:12 VBG pCO2 53 mmHg (41-51) H 08/19/17 12:50 VBG pO2 63 mmHg (25-50) H 08/19/17 12:50 VBG HCO3 29 mEq/L (21-27) H 08/19/17 12:50 Sodium 124 mEq/L (136-145) L 09/04/17 03:37 Carbon Dioxide 21 mEq/L (23-29) L 09/04/17 03:37 BUN 27 mg/dL (8-23) H 09/04/17 03:37 BUN/Creatinine Ratio 42 (6-26) H 09/04/17 03:37 Glucose 130 mg/dL (70-105) H 09/04/17 03:37 POC Glucose 93 (58-89) H 09/04/17 11:24 Calculated Osmolality 265 (280-300) L 09/04/17 03:37 Calcium 7.2 mg/dL (8.6-10.3) L 09/04/17 03:37 Phosphorus 2.4 mg/dL (2.7-4.5) L 09/04/17 03:37 Total Bilirubin 1.3 mg/dL (0.3-1.0) H 09/02/17 16:27 Direct Bilirubin 0.6 mg/dL (0.0-0.2) H 09/02/17 16:27 B-Natriuretic Peptide 640 pg/mL (Less than 100) H 08/20/17 00:32 Serum Total Protein 4.0 g/dL (6.4-8.9) L 09/02/17 16:27 Albumin 2.1 g/dL (3.5-5.7) L 09/02/17 16:27 Globulin 1.9 g/dL (2.4-3.5) L 09/02/17 16:27 Urine Bilirubin Small (Negative) H 08/19/17 13:08 Ur Squamous Epith Cells Moderate per lpf (None-Few) H 08/19/17 13:08 - Microbiology Findings Microbiology Findings: Microbiology, Last 48 Hours 09/02/17 00:58 Blood Culture - Preliminary Peripheral Venipuncture No growth. 09/02/17 00:55 Blood Culture - Preliminary Peripheral Venipuncture No growth. - Clinical Findings Intake & Output: Intake & Output 09/03/17 09/04/17 09/04/17 23:59 07:59 15:59 Intake Total 640 / 640 1551.0 / 1551.0 100 / 100 Output Total 125 / 125 475 / 475 540 / 540 Balance 515 / 515 1076.0 / 1076.0 -440 / -440 Weight 75.931 kg 76 kg - VTE Documentation of Mechanical Device: Intermittent pneumatic compression device Consult Discharge Plan - Plan Referrals: Senait Wong CNP [Primary Care Provider] - 08/26/17 2:40 pm <Azam Lofton - Last Filed: 09/04/17 21:58> Date of Encounter: 09/04/17 Objective PUL Vital signs: Last Vital Signs Temp 97.6 F 09/04/17 15:30 Pulse 116 09/04/17 21:00 Resp 8 09/04/17 21:00 BP 55/42 09/04/17 21:00 Pulse Ox 94 09/04/17 21:02 Ventilator Settings Ventilator Settings: Ventilator Settings, Last 8 Hours Ventilator Mode VC+ Ventilator Mode VC+ Ventilator Mode VC+ Ventilator Mode A/C Ventilator Mode A/C Ventilator Tidal Volume 380 Setting Ventilator Tidal Volume 380 Setting Ventilator Tidal Volume 380 Setting Ventilator Tidal Volume 380 Setting Ventilator Tidal Volume 380 Setting Ventilator Respiratory Rate 12 Setting Ventilator Respiratory Rate 12 Setting Ventilator Respiratory Rate 12 Setting Ventilator Respiratory Rate 12 Setting Ventilator Respiratory Rate 12 Setting Actual Respiratory Rate 18 Actual Respiratory Rate 19 Actual Respiratory Rate 16 Actual Respiratory Rate 19 Actual Respiratory Rate 16 Positive End Expiratory 5 Pressure Positive End Expiratory 5 Pressure Positive End Expiratory 5 Pressure Positive End Expiratory 5 Pressure Positive End Expiratory 5 Pressure Peak Inspiratory Airway 36 Pressure Peak Inspiratory Airway 36 Pressure Peak Inspiratory Airway 23 Pressure Peak Inspiratory Airway 29 Pressure Peak Inspiratory Airway 24 Pressure Results - Laboratory Findings CBC and BMP: 09/04/17 03:37 09/04/17 03:37 ABG ABG pH 7.32 pH Units (7.32-7.45) 09/02/17 00:12 ABG pCO2 43 mmHg (35-45) 09/02/17 00:12 ABG pO2 104 mmHg (85-104) 09/02/17 00:12 ABG O2 Saturation 97 % (95-98) 09/02/17 00:12 PT/INR, D-dimer PT 13.1 Seconds (9.4-12.1) H 08/19/17 12:32 D-Dimer 4056 ng/mLFEU (0-500) H 08/19/17 12:32 Abnormal lab findings: Abnormal lab results WBC 24.4 K/mcL (4.3-11.1) H 09/04/17 03:37 RBC 3.73 M/mcL (3.82-4.97) L 09/04/17 03:37 Hgb 9.5 g/dL (11.5-15.4) L 09/04/17 03:37 Hct 29.6 % (35.3-44.9) L 09/04/17 03:37 MCV 79.4 fL (83.0-100.0) L 09/04/17 03:37 MCH 25.5 pg (28.0-33.3) L 09/04/17 03:37 RDW 21.6 % (11.5-14.5) H 09/04/17 03:37 Plt Count 95 K/mcL (140-400) L 09/04/17 03:37 Neutrophils # 21.1 K/mcL (1.6-8.9) H 09/04/17 03:37 Monocytes # 1.8 K/mcL (0.0-1.3) H 09/04/17 03:37 Nucleated RBCs/100 WBC 0.1 /100 WBC (0) H 09/04/17 03:37 Platelet Estimate Decreased (Normal) L 09/04/17 03:37 Immature Plt Fraction 10.1 % (1.1-6.1) H 09/04/17 03:37 Polychromasia 1+ (Not Present) A 08/24/17 06:01 Poikilocytosis 1+ (Not Present) A 09/04/17 03:37 Anisocytosis 1+ (Not Present) A 09/04/17 03:37 Microcytosis Present (Not Present) A 08/25/17 04:19 Macrocytosis Present (Not Present) A 08/25/17 04:19 Target Cells 1+ (Not Present) A 08/25/17 04:19 Ovalocytes 1+ (Not Present) A 08/24/17 06:01 [place] Cells 1+ (Not Present) A 08/29/17 04:05 Acanthocytes (Spur) 1+ (Not Present) A 08/24/17 06:01 Schistocytes 1+ (Not Present) A 08/27/17 09:30 PT 13.1 Seconds (9.4-12.1) H 08/19/17 12:32 D-Dimer 4056 ng/mLFEU (0-500) H 08/19/17 12:32 ABG Base Excess -4 mEq/L (-2 to 3) L 09/02/17 00:12 VBG pCO2 53 mmHg (41-51) H 08/19/17 12:50 VBG pO2 63 mmHg (25-50) H 08/19/17 12:50 VBG HCO3 29 mEq/L (21-27) H 08/19/17 12:50 Sodium 124 mEq/L (136-145) L 09/04/17 03:37 Carbon Dioxide 21 mEq/L (23-29) L 09/04/17 03:37 BUN 27 mg/dL (8-23) H 09/04/17 03:37 BUN/Creatinine Ratio 42 (6-26) H 09/04/17 03:37 Glucose 130 mg/dL (70-105) H 09/04/17 03:37 POC Glucose 99 (58-89) H 09/04/17 17:16 Calculated Osmolality 265 (280-300) L 09/04/17 03:37 Calcium 7.2 mg/dL (8.6-10.3) L 09/04/17 03:37 Phosphorus 2.4 mg/dL (2.7-4.5) L 09/04/17 03:37 Total Bilirubin 1.3 mg/dL (0.3-1.0) H 09/02/17 16:27 Direct Bilirubin 0.6 mg/dL (0.0-0.2) H 09/02/17 16:27 B-Natriuretic Peptide 640 pg/mL (Less than 100) H 08/20/17 00:32 Serum Total Protein 4.0 g/dL (6.4-8.9) L 09/02/17 16:27 Albumin 2.1 g/dL (3.5-5.7) L 09/02/17 16:27 Globulin 1.9 g/dL (2.4-3.5) L 09/02/17 16:27 Urine Bilirubin Small (Negative) H 08/19/17 13:08 Ur Squamous Epith Cells Moderate per lpf (None-Few) H 08/19/17 13:08 - Microbiology Findings Microbiology Findings: Microbiology, Last 48 Hours 09/02/17 00:58 Blood Culture - Preliminary Peripheral Venipuncture No growth. 09/02/17 00:55 Blood Culture - Preliminary Peripheral Venipuncture No growth. - Clinical Findings Intake & Output: Intake & Output 09/04/17 09/04/17 09/04/17 07:59 15:59 23:59 Intake Total 1851.0 / 1851.0 100 / 100 217 / 2171 Output Total 475 / 475 640 / 640 Balance 1376.0 / 1376.0 -540 / -540 2170 Weight 75.931 kg 76 kg - Attending Attestation - Attending Attestation I saw and evaluated this patient and my medical decision-making was reviewed with the Resident Physician. I agree with the documented findings, disposition and treatment plan as described except to the extent set forth below. We independently had [id number] contact with the patient Patient seen and examined at bedside Labs, radiology, chart personally reviewed. Management was reviewed during multidisciplinary critical care rounds. 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 The imaging didnt show any collection of fluid to be drained . To continue lung protective strategy . Cards:Atrial fibrillation with RVR on Amiodarone might contribute hemodynamically stability still on Vasporessors . Patient is 16 liter positive couldnt diurese because of vasopressors . Will take the A line out . FEN-GI: Patient has oesophageal stenosis cannot do Oral access to do nutrition will do PICC line for TPN for now then will consult GI for permanent . Difficulty in placement of PICC line due to SVC and brachiocephalic obstruction has difficulty in insertion because of difficult central vein access consulted GI since patient has severe lower esophageal stricture will attempt tomorrow to do a PEG tube explained about the benefits of procedure how important is nutrition in liberation from the ventilator . 09/01 PEG tube insertion because of hemodynamic stability .Because of PICC line is in brachiocephalic vein due to SVC stenois i put in a femoral line for possible TPN till we get GI access 09/02 Postoponed the PEG tube placement will start TPN through the femoral central line for now 09/03 holding off PEG tube because of hemodynamically stability 09/04 to continue TPN Renal:Labs and UOP reviewed . ID:To continue broad spectrum antibiotics with Linezolid and meropenem for possible worsening pneumonia since with new onset of hemodynamic instability will follow cultures Heme/Onc:Labs reviewed Endo: Glucose Monitored Integ/MSK: Skin Care per routine ICU Nursing Protocol to prevent ulcers. Lines: All lines examined without evidence of infection : Dispo: Remains Critically ill . CODE: Palliative Care Onboard . Code status changed to DNRCCA Spoke with Family at length today morning if she is continues to decline family are leaning towards Comfort care .
[2017-09-04] MEDS ORDERED: Clinimix E 5%-20% SOLUTION 2,000 ML with MVI, adult with vitamin K 10 ML IVC SCH (17:00)
[2017-09-04] MEDS ORDERED: *HR* Norepinephrine 4 MG/4 ML VIAL IVC ONE (19:17)
[2017-09-04] MEDS ORDERED: D5% in Water 100 ML ONE (19:18)
[2017-09-04] MEDS ORDERED: Atropine Sulfate 1% 40 DROP/2 ML BOTTLE SL PRN (19:58)
[2017-09-04] MEDS: *HR* LORazepam 2 MG/ML VIAL IVP PRN ×3 (20:39→23:19)
[2017-09-04 23:18] VITALS: BP 62/42
--- NOTE | 2017-09-05 01:10 | Death Note ---
<Santos Bailey - Last Filed: 09/05/17 01:13> Discharge Sum: Summary - Date and Time Date of admission: 08/19/17 16:30 Date of : 09/05/17 Time of : 12:48 - Summary Details: Ms. Wong is a 72-year-old woman who presents to the ED with recurrent pleural effusion and pneumonia. The patient has a history of lung cancer status post right lobectomy and atrial fibrillation, high cholesterol, COPD, CAD with history of 5 stents, seizure disorder, diastolic heart failure. At the time of admission the patient was hypoxic with acute respiratory failure on chronic respiratory failure. She additionally had atrial fibrillation with rapid ventricular response which she was treated with Cardizem. The patient was treated for pneumonia with antibiotics, however her respiratory status continued to progressively worsen. She did come to a point where she was BiPAP dependent, and then later required intubation for acute respiratory failure. Additionally, it was found that she did have a pericardial effusion which required chest tube with pericardial window. The patient's hemodynamic stability began to lessen, and she eventually required the use of pressors for blood pressure support. The patient failed multiple CPAP trials in attempts to extubate. The patient's family remained heavily involved, and her status continued to worsen. Today, the family made the determination that the patient should no longer continue to receive life-saving or life supporting care due to the futility of her current health status. Care was withdrawn the late in the evening of 09/04/2017, and the patient shortly into the new morning. - Additional Data Confirmation of as documented by pronouncing clinician: no pulse, no respirations, no heart sounds, pupils fixed and dilated Family: at bedside Attending/PCP notified?: Yes Attending physician: Dr. Lofton Was code activated?: No Autopsy requested?: No mail examiner notified?: Yes Organ bank notified?: Yes Advance directives: No Hospice patient?: No Discharge Sum: Diag - PCOD Probable Cause of : Acute respiratory failure Discharge Sum: Prov - Provider Primary care physician: Senait Wong CNP Admitting clinician: Nate Costa Attending physician on admission: Nate Costa Consults: 08/19/17 16:37 Consult to Pulmonology [CONS] Routine Consulting Provider: [facility] Reason for Consult: lung cancer sob, pleural effusion Time Notified: 16:38 Call Completed: No 08/23/17 16:10 Consult to Pulmonology [CONS] Routine Consulting Provider: [facility] Reason for Consult: pleural effusion Time Notified: 16:10 Call Completed: Yes 08/25/17 14:49 Consult to Gastroenterology [CONS] Routine Consulting Provider: Gastroenter[facility] [place] Reason for Consult: Difficulty swallowing, Vomitting, hx of esophageal ulcer Time Notified: 14:50 Call Completed: Yes 08/26/17 13:32 Consult to Cardiothoracic Surgery [CONS] Routine Consulting Provider: Cardiothoracic [facility] [place] Reason for Consult: percardial effusion on ct scan Time Notified: 13:32 Call Completed: Yes 08/27/17 09:58 Consult to Critical Care [CONS] Stat Consulting Provider: Pulm [facility] Reason for Consult: s/p pericardial window Call Completed: Yes 08/30/17 11:05 consult to platform material handling supervisor [Consult to Nutrition] [CONS] Routine Comment: Consulting Provider: NUTRITION Reason for Dietary Consult: TPN Start and Manage 08/31/17 10:50 Consult to Gastroenterology [CONS] Routine Consulting Provider: Gastroenterology [facility] Reason for Consult: inability to pass OG tube interested in enteral nutrition , currently receiving TPN via PICC Call Completed: Yes 09/02/17 10:49 Consult to Palliative Care [CONS] Routine Comment: Consulting Provider: Palliative Care [facility] Reason for Consult: goals of care Call Completed: No Pronouncing clinician: Santos Bailey <Azam Lofton S - Last Filed: 09/07/17 07:51> Discharge Sum: Summary - Date and Time Date of admission: 08/19/17 16:30 - Summary Details: I with agree with the above hospital course refractory shock not responding to therapy became progressively encephalopathic family changed the goals of care to comfort - Additional Data Attending physician: Jermaine Barnes Discharge Sum: Prov - Provider Primary care physician: Senait Wong CNP Consults: 08/19/17 16:37 Consult to Pulmonology [CONS] Routine Consulting Provider: [facility] Reason for Consult: lung cancer sob, pleural effusion Time Notified: 16:38 Call Completed: No 08/23/17 16:10 Consult to Pulmonology [CONS] Routine Consulting Provider: Pulm [facility] Reason for Consult: pleural effusion Time Notified: 16:10 Call Completed: Yes 08/25/17 14:49 Consult to Gastroenterology [CONS] Routine Consulting Provider: [facility] [place] Reason for Consult: Difficulty swallowing, Vomitting, hx of esophageal ulcer Time Notified: 14:50 Call Completed: Yes 08/26/17 13:32 Consult to Cardiothoracic Surgery [CONS] Routine Consulting Provider: Cardiothoracic Surgery [facility] Reason for Consult: percardial effusion on ct scan Time Notified: 13:32 Call Completed: Yes 08/27/17 09:58 Consult to Critical Care [CONS] Stat Consulting Provider: [facility]m [facility] Reason for Consult: s/p pericardial window Call Completed: Yes 08/30/17 11:05 consult to platform material handling supervisor [Consult to Nutrition] [CONS] Routine Comment: Consulting Provider: NUTRITION Reason for Dietary Consult: TPN Start and Manage 08/31/17 10:50 Consult to Gastroenterology [CONS] Routine Consulting Provider: Gastroenterology [facility] Reason for Consult: inability to pass OG tube interested in enteral nutrition , currently receiving TPN via PICC Call Completed: Yes 09/02/17 10:49 Consult to Palliative Care [CONS] Routine Comment: Consulting Provider: Palliative [facility] [place] Reason for Consult: goals of care Call Completed: No
[2017-09-05] MEDS ORDERED: Clinimix E 5%-20% SOLUTION 2,000 ML with MVI, adult with vitamin K 10 ML IVC SCH (17:00)
== END 2017-09-05 00:48 | disposition expired | DRG 163 ==
LOC: EMEROO 11:58 → 2NENU 11:58 → SUATTDRO 16:30 → 2NENU 16:39 → 2NNU 08-26 22:17 → ICNU 08-27 08:39
PROVIDERS: ADMIT Internal Medicine; ATTEND Internal Medicine